=== PATIENT | female | born 1955 | race Caucasian/White ===

== ENCOUNTER 2019-12-26 00:04 | Emergency (ER) | payer MEDICARE, SELFPAY ==
[2019-12-26 00:04] VITALS: BP 172/107; PULSE 91; RESP 16; TEMP 36.6; O2SAT 98; BMI 36.5
--- NOTE | 2019-12-26 00:08 | ED_ITS ---
HPI - Fall General: Chief Complaint: Fall Stated Complaint: Fall, Left Shoulder Pain Time Seen by Provider: 12/26/19 00:05 Source: patient and EMS Mode of arrival: EMS Limitations: no limitations History of Present Illness: HPI Narrative: 64-year-old female states she was getting out of the shower and fell and struck her right arm. She had a right shoulder has had right shoulder pain since then. She states that her arm is stuck in its current position. She has her right arm externally rotated in her hand up in the air. She states she cannot move it. States pain is sharp in nature and rates it a 6 out of 10. She denies hitting her head denies any other injuries. MD complaint: fall Associated symptoms-after fall: Denies abdominal pain, chest pain or headache(s) Review of Systems Const: Denies: fever(s), chills, body aches or change in appetite Eyes: Denies: blurry vision or eye discomfort ENMT: Denies: throat pain or dental pain Card: Denies: chest pain Resp: Denies: dyspnea GI: Denies: abdominal pain, nausea, vomiting or diarrhea : Denies: dysuria Musc: Reports: extremity pain Skin/Breast: Denies: rash Neuro: Denies: headache(s) Psych: Denies: depression Zoran/Lymph: Denies: easy bruising All/Imm: Denies: urticaria Physical Exam Const: COMMON NORMALS: no acute distress, patient oriented x3 and healthy appearing HENMT: COMMON NORMALS: normocephalic and atraumatic HEAD & SCALP: normocephalic and atraumatic Eye: COMMON NORMALS: Equal, round and reactive pupils present and EOMs intact bilaterally PUPIL: Yes Equal, round and reactive pupils present Neck/C-Spine: COMMON NORMALS: full ROM and supple Chest: COMMONS NORMALS: normal inspection of the chest and normal palpation of entire chest wall Resp: COMMON NORMALS: normal respiratory effort, No retractions, No use of accessory muscles and clear to auscultation bilaterally AUSCULTATION: clear to auscultation bilaterally Cardio: COMMON NORMALS: regular rate, regular rhythm and No murmurs present (Cardio) RATE: regular rate RHYTHM: regular rhythm GI: COMMON NORMALS: Normal to inspection, nondistended, normoactive bowel sounds present, Soft to palpation, non-tender and no masses PALPATION: Yes Soft to palpation Extremity: NARRATIVE EXTREMITY EXAM: Tenderness over left shoulder with likely dislocation distal pulses and sensation are intact. Neuro: COMMON NORMALS: patient oriented x3, moves all extremities and no focal motor deficits Psych: COMMON NORMALS: mental status grossly normal, Normal thought process present and cooperative THOUGHT PROCESS: Normal thought process present Skin: COMMON NORMALS: no rashes or lesions noted and no wounds GENERAL SKIN EXAM: no rashes or lesions noted Procedures Orthopedic Joint Reduction Joint #1: Time Out Performed: Yes Side: left Joint Reduction Location: shoulder Analgesia: procedural sedation Shoulder Technique Used (if applicable): traction/counter-traction Post-reduction neuro exam: intact Post-reduction vascular: intact Post Reduction X-Ray Obtained: Yes Post Reduction X-Ray Results: reduced Splint Applied: Yes Patient Tolerated Procedure: well Procedural Sedation Indication: fracture/dislocation reduction ASA Class: II Time of Last PO Intake: 00:00 Preparation: classroom monitor applied, pulse oximeter, supplemental O2 applied, suction/airway equipment at bedside and IV secured IV Propofol dose (mg): 100 Patient Tolerated Procedure: well Complications: none Course Vital Signs: Vital signs: Vital Signs Temperature 97.8 F 12/26/19 00:04 Pulse Rate 66 12/26/19 01:02 Respiratory Rate 18 12/26/19 01:02 Blood Pressure 154/80 12/26/19 01:02 Pulse Oximetry 95 12/26/19 00:40 MDM - Fall MDM Narrative: Medical decision making narrative: Patient presents here with inferior shoulder dislocation. Patient reduction was successful and her neuro and vascular exam after was intact. Patient is currently in a sling. Patient is stable for discharge and is to follow-up with Dr. Iyer. She is to return if worsening. She has no other signs of injury. Imaging Data^: xr l shoulder: Attestation: I personally reviewed and interpreted this imaging study as follows: My impression: inferior shoulder dislocation Discharge Plan Discharge Patient Disposition: Home Clinical Impression: Dislocation of shoulder region Qualifiers: Encounter type: initial encounter Laterality: left Qualified Code(s): S43.005A - Unspecified dislocation of left shoulder joint, initial encounter Condition: Stable Prescriptions: [place] 5-325 mg tablet 1 tab PO Q6H PRN (Reason: pain) Qty: 10 RF: 0 Discharge Orders: Discharge Order (Routine); Ordered 12/26/19 Ordered By: Yoshi Rios Referrals: Hailey Franco MD [Physician] - 1-3 days Gus Booker MD [Primary Care Provider] - Discharge Diet: Advance as tolerated Discharge Activity: Resume usual activity Patient Instructions: Shoulder Dislocation (ED) Coding Level of Care Code ED [employer] Receiver for Chg Fwd Exam Comprehensive
--- NOTE | 2019-12-26 00:08 | XRR_ITS ---
PROCEDURE INFORMATION: Exam: XR Left Shoulder Exam date and time: 12/26/2019 7:43 AM Age: 64 years old Clinical indication: Injury or trauma; Fall; Initial encounter; Dislocation; Severity not specified; Shoulder; Left; Additional info: Injury, fall TECHNIQUE: Imaging protocol: XR Left shoulder. Views: 1 view. COMPARISON: No relevant prior studies available. FINDINGS: Bones/joints: Subcoracoid dislocation of the humeral head in relation to the glenoid. The acromioclavicular joint is without fracture.. Adjacent ribs are normal. Fracture fragment either glenoid or tuberosity. Favor tuberosity. Soft tissues: Normal. XR/XR shoulder LT 1V [id number] IMPRESSION: 1. Subcoracoid dislocation. 2. Fracture fragment either glenoid or tuberosity. Favor tuberosity. Correlate with CT.
[2019-12-26 00:15] VITALS: RESP 16
[2019-12-26] MEDS: HYDROmorphone 1 mg/mL INJ 1 mL 0.5 MG IVP (00:15)
[2019-12-26 00:40] VITALS: BP 172/99; PULSE 80; RESP 20; O2SAT 95
[2019-12-26] MEDS: propofol 10 mg/mL SDV 20 mL 100 MG IVP (01:01)
[2019-12-26 01:02] VITALS: BP 154/80; PULSE 66; RESP 18; O2SAT 98
--- NOTE | 2019-12-26 01:03 | XRR_ITS ---
PROCEDURE INFORMATION: Exam: XR Left Shoulder Exam date and time: 12/26/2019 7:43 AM Age: 64 years old Clinical indication: Injury or trauma; Fall; Initial encounter; Dislocation; Severity not specified; Shoulder; Left; Additional info: Post reduction TECHNIQUE: Imaging protocol: XR Left shoulder. Views: 1 view. COMPARISON: CR XR shoulder LT 1V [id number] 12/26/2019 12:03 AM FINDINGS: Bones/joints: Reduction of the previously visualized dislocation. Moderate degenerative changes of the acromioclavicular joint. Soft tissues: Normal. XR/XR shoulder LT 1V [id number] IMPRESSION: Reduction of the previously visualized dislocation. Previously visualized fracture fragment likely tuberosity.
[2019-12-26 01:34] VITALS: BP 138/88; PULSE 74; RESP 18; O2SAT 98
--- NOTE | 2019-12-26 12:38 | DCPLANNER ---
consumer marketing manager had message to schedule a follow up appointment for patient with ortho. consumer marketing manager called the ortho clinic, spoke with Tish, gave clinic patients information. consumer marketing manager was told that patients information would be printed and reviewed. Clinic will call patient with appointment information.
--- NOTE | 2019-12-28 07:44 | DCPLANNER ---
Patient has a follow up appointment scheduled for Tuesday, January 02, 2020 at 2:30 with ortho. Clinic will call patient with appointment information.
--- NOTE | 2020-01-14 08:36 | DCPLANNER ---
Patient had a follow up appointment scheduled for 01.02.20 with ortho - patient did attend the appointment.
== END 2019-12-26 01:37 | disposition home or self-care (01) ==
PROVIDERS: Emergency Provider Emergency Medicine; PCP Family Medicine
DX: S43.005A Unspecified dislocation of left shoulder joint, initial encounter (principal); W18.2XXA Fall in (into) shower or empty bathtub, initial encounter
CPT/HCPCS: 12345; 23650; 73020; 73030; 96374; 96375; 99282; 99284; J1170; J2704

== ENCOUNTER → 2020-01-02 14:41 | Outpatient (BNVA) | payer MEDICARE, SELFPAY | PROVIDERS: PCP Family Medicine; Referring Provider Emergency Medicine; Visit Provider Specialist | DX: S43.005A Unspecified dislocation of left shoulder joint, initial encounter (principal) | CPT/HCPCS: 73030 ==

== ENCOUNTER 2020-02-07 12:57 | Outpatient (CLI) | payer MEDICARE, SELFPAY ==
--- NOTE | 2020-02-07 13:07 | IR_ITS ---
WS: [id number] LEFT SHOULDER ARTHROGRAM UNDER FLUOROSCOPY. PRIOR TO CT EVALUATION. HISTORY: fracture COMPARISON: 01/02/2020. FLUOROSCOPY TIME: 1.2 minutes. Procedure, risks and complications were explained to the patient. Consent has been obtained. Under fluoroscopic guidance the skin is marked over the medial superior third of the humeral head, cl eansed with ChloraPrep and anesthetized with lidocaine. 22-gauge spinal needle is inserted to the cor rober of the humeral head. Approximately 12 cc of Omnipaque 300 are injected. Patient tolerated the dominga nt distention well. No complications. Poorly visualized avulsion fracture over the superior humeral head. CT evaluation to follow. IR/IR arthrogram shoulderLT [id number] IMPRESSION: Uncomplicated LEFT shoulder joint injection prior to CT.
[2020-02-07] MEDS: iohexol 300 mg/mL 50 mL Btl INTRA-ARTI (13:59)
--- NOTE | 2020-02-07 14:15 | CT_ITS ---
WS: [id number] CT ARTHROGRAM LEFT shoulder. LEFT shoulder arthrogram was performed in fluoroscopy prior to CT evaluation. HISTORY: fracture COMPARISON: 01/02/2020 radiographs. Procedure, risks and complications were explained to the patient. Complications include but not limit ed to bleeding, infection and contrast reaction. Current medications are reviewed. Skin is cleansed with ChloraPrep. Skin is anesthetized with 1% buffered lidocaine. 22-gauge needle is inserted into the LEFT shoulder joint. Approximately 12 cc of Omnipaque 300 injected without complic ation. Patient will proceed to CT evaluation immediately. No complications were encountered. Patient is instructed to watch for post procedure infection or ble eding. Patient is also instructed to contact the radiology department with any concerns. Good contrast distention of the shoulder joint. Osseous fragments are noted over the superior humeral head in close association with the supraspinatus tendon. There are several osseous fragments with th e largest measuring 2.4 x 0.5 cm. There are smaller more spiculated fragments more medially over the humeral head. The donor site is from the posterior lateral humeral head. There is a squared off surfa ce of the posterior lateral humerus. These bony fragments have progressed into the acromiohumeral dominga nt space. There is very little joint space between the acromion and humeral head for the rotator cuff to move. No additional fractures are identified. No contrast extends into the subacromial or subdelt oid bursa. Biceps tendon remains in normal position. CT/CT shoulder LT w con [id number] IMPRESSION: Uncomplicated LEFT shoulder joint injection prior to CT arthrogram. Avulsion fractures from the posterior lateral humeral head have migrated superi mendy and are now positioned within the acromial humeral joint space with encroa chment upon the supraspinatus tendon. There are several fragments with the larg est fragment measuring 2.4 x 0.5 cm. Fragments are causing significant narrowin g of the space for the supraspinatus tendon.
== END 2020-02-07 12:58 | disposition home or self-care (01) ==
LOC: RADWPI 13:00
PROVIDERS: Family Provider Family Medicine; PCP Family Medicine; Visit Provider Specialist
DX: S42.292A Other displaced fracture of upper end of left humerus, initial encounter for closed fracture (principal); X58.XXXA Exposure to other specified factors, initial encounter
CPT/HCPCS: 23350; 73201; 77002; Q9967

== ENCOUNTER → 2020-02-28 15:23 | Outpatient (BNVA) | payer MEDICARE, SELFPAY | PROVIDERS: Family Provider Family Medicine; PCP Family Medicine; Visit Provider Specialist | DX: Z11.59 Encounter for screening for other viral diseases (principal); S42.292A Other displaced fracture of upper end of left humerus, initial encounter for closed fracture; S43.03 Inferior subluxation and dislocation of humerus | CPT/HCPCS: 87635 ==

== ENCOUNTER 2020-03-04 05:32 | Day surgery (SDC) | payer MEDICARE, SELFPAY ==
[2020-03-03 10:35] VITALS: BMI 36.0
[2020-03-04] VITALS (8 sets, daily range): BP systolic 116–159; BP diastolic 57–96; PULSE 65–88; RESP 16–18; TEMP 36.1–37; O2SAT 94–100
--- NOTE | 2020-03-04 | SCC_ITS ---
Procedure Done: Left shoulder open acromioplasty with removal of multiple bony fragments and repair of massive rotator cuff tear with suture anchors x2 in addition to primary repair, and manipulation left shoulder 18.7 seconds of fluoroscopic guidance, for a cumulative dose of 2.05 mGy, was provided to Dr. Franco by the radiology department. C-arm images of the LEFT shoulder were saved for the patient's permanent record. TC
--- NOTE | 2020-03-04 | XR_ITS ---
WS: [id number] Exam: XR shoulder LT 1V [id number] Date/Time of Exam: 03/04/2020 7:00 AM Reason For Exam: Shoulder arthrotomy and removal of loose bodies. Single AP C-arm image of the left shoulder submitted for evaluation. Previously noted fracture of the greater tuberosity is difficult to identify on the C-arm image. No o ther obvious fractures. Normal soft tissues.
[2020-03-04] MEDS: sodium chloride 0.9% 1,000 ML 30 ML IV (06:00)
[2020-03-04] MEDS: CELEcoxib 200 mg Capsule 400 MG PO (06:04)
[2020-03-04] MEDS: vancomycin 1,000 MG in sodium chloride 0.9% 250 ML 250 MG IV (06:09)
[2020-03-04 06:12] LABS: Basophils % 0.3 %; Eosinophils # 0.2 10^3/uL (0.0-0.8); Eosinophils % 2.4 %; Hematocrit 42.8 % (37.0-47.0); Hemoglobin 13.9 g/dL (11.5-15.3); Lymphocytes # 3.4 10^3/uL (0.8-4.8); Lymphocytes % 34.5 %; Mean Corpuscular HGB Conc 32.5 g/dL (30.0-36.0); Mean Corpuscular Hemoglobin 30.5 pg (28.0-34.0); Mean Corpuscular Volume 93.9 fL (81-99); Mean Platelet Volume 9.6 fL (7.4-10.4); Monocytes # 0.7 10^3/uL (0.2-0.9); Neutrophils # 5.54 10^3/uL (1.8-7.7); Neutrophils % 55.6 %; Nucleated Red Blood Cells % 0 %; Platelet Count 271 10^3/cmm (130-400); Red Blood Count 4.56 10^6/uL (4.1-5.3); Red Cell Distribution Width 12.7 % (12.1-15.1)
[2020-03-04 06:22] LABS: Add Urine Microscopic? YES; Bilirubin Urine 1+ (Negative); Blood Urine Neg (Negative); Glucose Urine UA Norm (Normal); Ketones Urine Negative (Negative); Leukocyte Esterase Urine Negative (Negative); Nitrate Urine Negative (Negative); Protein Urine Trace (Negative); Urine Appearance SL Hazy (CLEAR); Urine Color Yellow (Yellow); Urobilinogen Urine Norm (Negative); pH Urine 5 (5-7)
[2020-03-04 06:23] LABS: RBC Urine 0-4 /hpf (0-2); Squamous Epithelial Cell Urine 0-4 /hpf (0-5); WBC Urine 0-4 /hpf (0-5)
[2020-03-04 06:24] LABS: Add Urine Culture? No; Bacteria Urine TRACE /hpf
[2020-03-04] MEDS: midazolam 1 mg/mL INJ 5 ML 5 MG IVP (06:27)
[2020-03-04 06:28] LABS: Alanine Aminotransferase 25 U/L (0-33); Albumin Level 4.3 g/dL (3.5-5.2); Alkaline Phosphatase 109 IU/L (35-105); Aspartate Amino Transferase 20 U/L (0-32); Blood Urea Nitrogen 15 mg/dL (8-23); Calcium 9.5 mg/dL (8.5-10.5); Carbon Dioxide 23 mmol/L (22-29); Chloride 102 mmol/L (98-107); Creatinine Clr Calc Pharmacy 70.6028; Globulin 2.6 g/dL (1.3-4.6); Glomerular Filtration Rate 55.8 mL/min (90-130); Glucose 139 mg/dL (65-115); Osmolality Calculated 289 mOsm/kg (285-295); Sodium 138 mmol/L (136-145); Total Bilirubin 0.2 mg/dL (0.15-1.2); Total Protein 6.9 g/dL (6.6-8.7)
[2020-03-04 06:33] LABS: Anion Gap 16.7 (5-19); Potassium 3.7 mmol/L (3.5-5.1)
--- NOTE | 2020-03-04 06:34 | P.ANESASSM_ITS ---
Pre-Anesthetic Assessment Pre-Anesthetic Assessment: Height/Weight: Height 1.7 m Weight 104.326 kg Temp Pulse Resp BP Pulse Ox 97.0 F L 65 18 159/71 95 03/04/20 05:54 03/04/20 05:54 03/04/20 05:54 03/04/20 05:54 03/04/20 05:54 Preop Diagnosis: Loose bodies left shoulder with rotator cuff tear Proposed Procedure: Operation Date: 03/04/20 06:30 Proposed Procedures p Left Shoulder Arthrotomy with removal of multiple loose bodies [id number] S43.035D S42.292A M75.100(Left) - Hailey Franco MD s Possible Rotator Cuff Repair(Not Applicable) - Hailey Franco MD Familial anesthetic complications: none Was Beta Masha taken within 24 hours: Yes Last intake: Intake Last Liquid Date 03/03/20 Last Liquid Time 23:59 Last Solid Date 03/03/20 Last Solid Time 21:30 Social: Social History: No alcohol and No tobacco Exam: Pre-Anes Outpt Exam: alert, oriented x 3, clear to auscultation bilaterally and regular rate & rhythm Airway: Cervical ROM: WNL MP: 3 Dentition: Full Pulmonary: Pulmonary: Asthma and Sleep apnea (does not wear cpap) Comments: can't lay flat without allergy-related sinus drainage and she says it feels hard to breath - asks for pillow in recovery so her head isn't flat CV/HEM: CV/HEM: HTN GI: GI: GERD Metabolic: Metabolic: Morbid obesity and Thyroid Anesthetic Plan: ASA status: 2 Anesthesia: General and Regional (specify below) Risk of > 500 ml blood loss (7ml/kg in children): No Meds/Allergies Current Medications: Current Medications Generic Name Dose Route Start Last Admin Trade Name Freq PRN Reason Stop Dose Admin Vancomycin HCl 1,0 00 mg/ 250 mls @ 250 mls /hr 03/04/20 05:38 03/04/20 06:09 Sodium Chloride IV 03/04/20 06:37 250 mls/hr ONCE ONE Administration Protocol Sodium Chloride 1,000 mls @ 30 ml s/hr 03/04/20 05:45 03/04/20 06:00 Sodium Chloride 0.9% IV 03/05/20 05:44 30 mls/hr .Q24H HEMANTH Administration Data Anesthesia CBC & Chem 7: 03/04/20 05:50 03/04/20 05:50 Other Labs: Laboratory Results - last 48 hr 03/04/20 03/04/20 03/04/20 05:46 05:50 05:50 WBC 10.0 RBC 4.56 Hgb 13.9 Hct 42.8 MCV 93.9 MCH 30.5 MCHC 32.5 RDW 12.7 Plt Count 271 MPV 9.6 Neut % (Auto) 55.6 Lymph % (Auto) 34.5 [place] % (Auto) 7.0 Eos % (Auto) 2.4 Baso % (Auto) 0.3 Neut # (Auto) 5.54 Lymph # (Auto) 3.4 [place] # (Auto) 0.7 Eos # (Auto) 0.2 Baso # (Auto) 0.0 Nucleated RBC % (auto) 0 Nucleated RBCs # 0.0 Sodium 138 Potassium 3.7 Chloride 102 Carbon Dioxide 23 Anion Gap 16.7 BUN 15 Creatinine 1.0 H GFR Calculation 55.8 L Glucose 139 H Calculated Osmolality 289 Calcium 9.5 Total Bilirubin 0.2 AST 20 ALT 25 Alkaline Phosphatase 109 H Total Protein 6.9 Albumin 4.3 Globulin 2.6 Urine Color Yellow Urine Appearance Sl hazy Urine pH 5 Ur Specific [place] 1.030 Urine Protein Trace Urine Glucose (UA) Norm Urine Ketones Negative Urine Blood Neg Urine Nitrate Negative Urine Bilirubin 1+ H Urine Urobilinogen Norm Ur Leukocyte Esterase Negative Urine RBC 0-4 H Urine WBC 0-4 H Ur Squamous Epith Cells 0-4 H Amorphous Sediment Not Reportable Urine Bacteria Trace Cardiac Studies: No Data to Display
--- NOTE | 2020-03-04 06:35 | ANES.PROC ---
Anesthesia Procedures Procedure/Date: 03/04/20 Nerve Block ^: Nerve Block 1: Main Anesthesia: general anesthesia Time Out Performed: Yes Consent: requested by attending/covering physician, from patient, from other, risks and benefits reviewed, patient agrees to proceed and emergency procedure Nerve block location: interscalene (L) Anesthesia monitors applied: pulse oximetry, EKG, BP cuff and oxygen Nerve block position: semi sitting Anesthetic Used: ropivicaine 0.5% and with decadron (4 mg) Amount of anesthesia used (mL): 30 Ultrasound used to: recognize landmarks and visualize and ID brachial plexus Nerve Stimulator Used?: No Interscalene/Femoral BLK: 2 stimuplex 22 g needle used for position and inplane approach, other needle, visualize local anesthetic spread and no vascular puncture identified Patient Tolerated Procedure: well Complications: none
--- NOTE | 2020-03-04 06:53 | P.HPUD_ITS ---
Surgery/Procedure H&P Update DATE OF PROCEDURE: March 04, 2020 DATE H&P PERFORMED: 02/25/20 H&P UPDATE INFORMATION: I have reviewed H&P completed within last 30 days, I have examined patient prior to procedure, No changes to prior documentation and H&P is in [facility] EMR on date indicated PREOP DIAGNOSIS: Loose bodies left shoulder with rotator cuff tear PLANNED PROCEDURE: Operation Date: 03/04/20 06:30 Proposed Procedures p Left Shoulder Arthrotomy with removal of multiple loose bodies [id number] S43.035D S42.292A M75.100(Left) - Hailey Franco MD s Possible Rotator Cuff Repair(Not Applicable) - Hailey Franco MD Related Problem List Diagnoses (1) Rotator cuff tear: Qualifiers: Rotator cuff tear extent: complete Rotator cuff tear trauma status: traumatic Encounter type: initial encounter Laterality: left Qualified Code(s): S46.012A - Strain of muscle(s) and tendon(s) of the rotator cuff of left shoulder, initial encounter (2) Inferior dislocation of left shoulder: Qualifiers: Encounter type: subsequent encounter Qualified Code(s): S43.035D - Inferior dislocation of left humerus, subsequent encounter (3) Humeral head fracture: Qualifiers: Encounter type: initial encounter Fracture type: closed Laterality: left Qualified Code(s): S42.292A - Other displaced fracture of upper end of left humerus, initial encounter for closed fracture
[2020-03-04] MEDS: vancomycin 1,000 MG SDV 1000 MG IRRIGATION (07:53)
--- NOTE | 2020-03-04 09:48 | SUR.PHASEI ---
PT AWAKE ALERT TALKATIVE PT HAS LOTS OF ORAL SECRETIONS, PT SPITS REPEATEDLY PT GIVEN TISSUES AND BASIN, PLACED ON NC 2L FOR PT CONVENIENCE. LT SHOULDER DRESSING D/I ARM IN ULTRA SLING.
--- NOTE | 2020-03-04 10:06 | P.OP_ITS ---
Operative Report Date of procedure: March 04, 2020 Pre-op Diagnosis: Loose bodies left shoulder with rotator cuff tear Secondary to humeral head fracture with inferior dislocation Post-op diagnosis: same Post-op Findings: Large rotator cuff tear with attached humeral head fracture fragments Procedure Done: Left shoulder open acromioplasty with removal of multiple bony fragments and repair of massive rotator cuff tear with suture anchors x2 in addition to primary repair, and manipulation left shoulder Implants: Yasemin suture anchors x2 Specimens removed/disposition: Bone, disposed of Pathology: none sent Surgeon: Hailey Franco Friction Paint Machine Tender: [facility] OR technicians Anesthesia: General (Intubated, ASA 2) Estimated blood loss (mL): 100 IV fluids (mL): 1,500 Urine output (mL): 0 Urine output: No [place] Complications: None Findings: Large wafer thin bony fragments connected to soft tissue with massive rotator cuff tear and frozen shoulder. Impingement secondary to the acromion. Condition: stable Disposition: PACU (Then home with family) Brief History: This 65-year-old woman presented following a fracture dislocation of the left shoulder. She had humeral head involvement as well as surgical neck. Upon presentation recently in the office, she was quite painful and had very restricted range of motion. Imaging demonstrated fragments of bone which resided between the acromion and the humeral head. The decision was made to proceed with acromioplasty, rotator cuff repair, removal of multiple loose bodies, and manipulation. Complications were discussed with the patient. She understood and wished to proceed. Procedure: The patient was brought to the operating theater and underwent general intubated anesthesia, ASA 2. The patient was placed in a beachchair position and subsequently the left upper extremity was prepped and draped in the usual fashion utilizing DuraPrep. The arm was draped free. A surgical pause was performed prior to commencement of the surgical procedure. At the time of the surgical pause, we confirmed the site and side of surgery as well as administration of appropriate preoperative antibiotics vancomycin 1 g. MRI was also reviewed at that time. Following the surgical pause, a manipulation was accomplished of the shoulder. Following the manipulation, an incision was made at approximately the level of the mid acromion extending across the anterolateral corner of the acromion and distally as necessary. Care was taken to avoid injury to the axillary nerve by limiting the distal extent of the incision. Dissection continued through skin and soft tissues using a scalpel. Hemostasis was obtained using electrocautery. Soft tissues were elevated off the acromion. An acromioplasty was then accomplished using a combination of a saw and a power rasp. With this, we were able to remove compression caused by the acromion. The rotator cuff tear was evaluated. Palpation of the bursal tissues demonstrated the fracture was palpable through the soft tissues. A longitudinal split was made through the bursal tissues and the rotator cuff was noted to be quite incompetent and thinned. There was essentially minimal to no structure to the cuff in the area of the fracture. Palpation under the cuff demonstrated that there were multiple fragments of bone. A rongeur was used to remove these fragments. The rotator cuff such as it was was freshened. There was noted to be significant thinning of the cuff. The area of the fracture of the humeral head was evaluated. This appeared to be healed. There was a defect in the greater tuberosity area likely a donor site for the fracture fragments which migrated superiorly. This area was evaluated. The rotator cuff was evaluated. Once the fragments which could be removed were removed, attempt was made to repair the rotator cuff. We began with a primary care with 0 Ethibond in the vertical portion of the tear. We then used 2 suture anchors to bring the rotator cuff back to the area of the greater tuberosity. Posteriorly, the humeral head was still uncovered, but superiorly and anteriorly it appeared covered. The shoulder was placed through range of motion, and there was evidence of coverage as noted. The rotator cuff appeared intact and the repair stable in the area which we were able to repair. The wound was irrigated and closure was accomplished with 0 Vicryl in the capsular tissues overlying the acromioclavicular joint area as well as over the acromion and down into the deltoid muscle. 2-0 Monocryl was used to close the subcutaneous tissues followed by 4-0 Monocryl subcuticular closure. This was followed by Exofin, Steri-Strips, Telfa, and Tegaderm. The patient was placed in a slingshot style sling and was returned to the recovery room in satisfactory condition. The patient will be discharged to home to follow-up with me in the office as scheduled. There were no complications and no specimens. Associated Problem List Diagnoses (1) Rotator cuff tear: Qualifiers: Rotator cuff tear extent: complete Rotator cuff tear trauma status: traumatic Encounter type: initial encounter Laterality: left Qualified Code(s): S46.012A - Strain of muscle(s) and tendon(s) of the rotator cuff of left shoulder, initial encounter (2) Inferior dislocation of left shoulder: Qualifiers: Encounter type: subsequent encounter Qualified Code(s): S43.035D - Inferior dislocation of left humerus, subsequent encounter (3) Humeral head fracture: Qualifiers: Encounter type: initial encounter Fracture type: closed Laterality: left Qualified Code(s): S42.292A - Other displaced fracture of upper end of left humerus, initial encounter for closed fracture
--- NOTE | 2020-03-04 10:12 | SUR.PHASEI ---
PT ALERT ASKING FOR SOMETHING TO DRINK LT ARM IN SLING, DISTAL FINGERS PINK WARM CAP REFILL LESS THAN 3 SECONDS. FIRST ICE TO SHOULDER DRESSING D/I PT TO OPS HANDOFF AT BEDSIDE TO DONATO MILLER.
--- NOTE | 2020-03-04 14:31 | ANE.PACU2 ---
Inpatient post-anesthesia follow up: Airway intact: Yes Vital signs: Temperature 97.4 F Pulse Rate 88 Respiratory Rate 18 Blood Pressure 146/77 Pulse Oximetry 94 Oxygen Delivery Me thod Room Air Oxygen Flow Rate 2 Fraction of Inspir ed Oxygen Hydration adequate: Yes Nausea and vomiting: No Pain level: 1 Mental status: Baseline
== END 2020-03-04 11:06 | disposition home or self-care (01) ==
PROVIDERS: PCP Family Medicine; Visit Provider Specialist
PROC: (CPT 29805; principal; 2020-03-04 06:30)
PROC: (CPT 23040; 2020-03-04 06:30)
PROC: (CPT 23040; 2020-03-04 06:30)
DX: M24.012 Loose body in left shoulder (principal); S46.012A Strain of muscle(s) and tendon(s) of the rotator cuff of left shoulder, initial encounter; S42.292A Other displaced fracture of upper end of left humerus, initial encounter for closed fracture; S43.035A Inferior dislocation of left humerus, initial encounter; X58.XXXA Exposure to other specified factors, initial encounter; J45.909 Unspecified asthma, uncomplicated; I10 Essential (primary) hypertension; K21.9 Gastro-esophageal reflux disease without esophagitis; E66.01 Morbid (severe) obesity due to excess calories; Z68.36 Body mass index [BMI] 36.0-36.9, adult
CPT/HCPCS: 23040; 23420; 12345; 36415; 64415; 73020; 76000; 76942; 80053; 81001; 85025; 96365; 96374; C1713; J0131; J1100; J2250; J2370; J2405; J2704; J2710; J2795; J3010; J3370; J3490; J7030; J7050

== ENCOUNTER → 2020-03-26 11:51 | Outpatient (BNVA) | payer MEDICARE, SELFPAY | PROVIDERS: PCP Family Medicine; Visit Provider Specialist | DX: Z47.89 Encounter for other orthopedic aftercare (principal) | CPT/HCPCS: 73030 ==

== ENCOUNTER 2020-05-16 06:00 | Outpatient (RCR) | payer MEDICARE, SELFPAY | END 2020-05-18 23:59 | disposition home or self-care (01) | LOC: SPT 06:00 | PROVIDERS: PCP Family Medicine; Referring Provider Specialist; Visit Provider Specialist | DX: Z48.89 Encounter for other specified surgical aftercare (principal) | CPT/HCPCS: 97161 ==

== ENCOUNTER 2020-05-19 06:00 | Outpatient (RCR) | payer MEDICARE, SELFPAY | END 2020-06-15 23:59 | disposition home or self-care (01) | LOC: SPT 06:00 | PROVIDERS: PCP Family Medicine; Referring Provider Specialist; Visit Provider Specialist | DX: Z48.89 Encounter for other specified surgical aftercare (principal) | CPT/HCPCS: 97110; 97140 ==

== ENCOUNTER 2020-06-16 06:00 | Outpatient (RCR) | payer MEDICARE, SELFPAY | END 2020-07-16 23:59 | disposition home or self-care (01) | LOC: SPT 06:00 | PROVIDERS: PCP Family Medicine; Referring Provider Specialist; Visit Provider Specialist | DX: M75.02 Adhesive capsulitis of left shoulder (principal) | CPT/HCPCS: 97110; 97140 ==

== ENCOUNTER 2020-06-30 12:52 | Outpatient (CLI) | payer MEDICARE, SELFPAY ==
--- NOTE | 2020-06-30 14:00 | IR_ITS ---
WS: [id number] Left shoulder arthrogram, 06/30/2020 Clinical Data: S46.012A - Strain of muscle(s) and tendon(s) of the rotator cuff of left shoulder, ini tial encounter Comparison: None. Fluoroscopy time: 3.8 minutes. Findings: With the usual technique, a 22-gauge small spinal needle was inserted into the left shoulder joint. A fter localizing the needle tip with 1 mL of Omnipaque at a concentration of 240 mg/mL, an injection o f 7 mL of Omnipaque was done. The shoulder joint shows an irregular outline consistent with scarring. There was great difficulty in injecting the contrast material because of this scarring. No evidence of a rotator cuff tear could b e seen. IR/IR arthrogram shoulderLT [id number] Impression: 1. Satisfactory injection of Omnipaque for a CT arthrogram of the left shoulder . 2. The shoulder capsule is extremely irregular probably from scarring.
--- NOTE | 2020-06-30 14:00 | CT_ITS ---
WS: [id number] CT scan of the left shoulder. Additional two-dimensional coronal and sagittal reconstruction was perf ormed. 06/30/2020 Clinical Data: S46.012A - Strain of muscle(s) and tendon(s) of the rotator cuff of left shoulder, ini tial encounter Comparison: CT left shoulder, 02/07/2020 DLP: 926.[address] scans at [facility] use at least one of these dose optimization techniques: automat ed exposure control; mA and/or kV adjustment per patient size (includes targeted exams where dose is matched to clinical indication); or iterative reconstruction. Findings: The contrast material was diminished in volume compared to prior study because of difficulty of injec tion. The shoulder joint demonstrates scarring of the joint space. Irregularity of the greater tubero sity is unchanged from before. Bony fragments which were present superior to the humeral head are no longer present. There are fragments that are anterior and posterior to the humeral head. No rotator c uff tear is seen. CT/CT shoulder LT w con [id number] Impression: 1. Narrow joint space probably secondary to synovial scarring. 2. Fragments noted anteriorly and posteriorly to the humeral head. 3. Superior fragments are longer present and there is narrowing of the space be tween the humeral head and acromion. 4. Negative for rotator cuff tear.
[2020-06-30] MEDS: iohexol 300 mg/mL 50 mL Btl INTRA-ARTI (14:09)
== END 2020-06-30 12:53 | disposition home or self-care (01) ==
LOC: RADWPI 12:58
PROVIDERS: PCP Family Medicine; Visit Provider Specialist
DX: S46.012A Strain of muscle(s) and tendon(s) of the rotator cuff of left shoulder, initial encounter (principal); X58.XXXA Exposure to other specified factors, initial encounter
CPT/HCPCS: 23350; 73040; 73201; 77002; Q9967

== ENCOUNTER → 2020-07-10 09:36 | Outpatient (BNVA) | payer MEDICARE, SELFPAY | PROVIDERS: PCP Family Medicine; Visit Provider Specialist | DX: M25.511 Pain in right shoulder | CPT/HCPCS: 73030 ==

== ENCOUNTER 2020-07-17 06:00 | Outpatient (RCR) | payer MEDICARE, SELFPAY | END 2020-08-15 23:59 | disposition home or self-care (01) | LOC: SPT 06:00 | PROVIDERS: PCP Family Medicine; Referring Provider Specialist; Visit Provider Specialist | DX: M75.02 Adhesive capsulitis of left shoulder (principal) | CPT/HCPCS: 97110; 97140 ==

== ENCOUNTER 2020-08-16 06:00 | Outpatient (RCR) | payer MEDICARE, SELFPAY | END 2020-09-15 23:59 | disposition home or self-care (01) | LOC: SPT 06:00 | PROVIDERS: PCP Family Medicine; Referring Provider Specialist; Visit Provider Specialist | DX: M75.02 Adhesive capsulitis of left shoulder (principal) | CPT/HCPCS: 97110; 97140 ==

== ENCOUNTER 2020-09-16 06:00 | Outpatient (RCR) | payer MEDICARE, SELFPAY | END 2020-10-15 23:59 | disposition home or self-care (01) | LOC: SPT 06:00 | PROVIDERS: PCP Family Medicine; Referring Provider Specialist; Visit Provider Specialist | DX: M75.02 Adhesive capsulitis of left shoulder (principal) | CPT/HCPCS: 97110; 97140 ==

== ENCOUNTER 2020-11-21 13:54 | Outpatient (CLI) | payer MEDICARE, SELFPAY ==
--- NOTE | 2020-11-21 14:04 | US_ITS ---
WS: [id number] ULTRASOUND SOFT TISSUES RIGHT neck HISTORY: NECK MASS COMPARISON: None available. TECHNIQUE: 2-D and color Doppler imaging is submitted. Ultrasound directed along the posterior RIGHT neck in the area of interest. There is a very small lym ph node present. No suspicious soft tissue masses or fluid collections. US/US soft tissue head neck [id number] IMPRESSION: Small benign lymph node along the posterior RIGHT neck. Otherwise negative.
== END 2020-11-21 13:55 | disposition home or self-care (01) ==
PROVIDERS: PCP Family Medicine; Visit Provider Family Medicine
DX: R22.1 Localized swelling, mass and lump, neck (principal)
CPT/HCPCS: 76536

== ENCOUNTER → 2021-01-26 10:15 | Outpatient (BNVA) | payer MEDICARE, SELFPAY | PROVIDERS: PCP Family Medicine; Referring Provider Family Medicine; Visit Provider Specialist | DX: M19.011 Primary osteoarthritis, right shoulder (principal) | CPT/HCPCS: 73030 ==

== ENCOUNTER → 2021-01-27 09:08 | Outpatient (BNVA) | payer MEDICARE, SELFPAY | PROVIDERS: PCP Family Medicine; Referring Provider Specialist; Visit Provider Specialist | DX: G62.89 Other specified polyneuropathies (principal); M54.2 Cervicalgia; M25.511 Pain in right shoulder | CPT/HCPCS: 95910 ==

== ENCOUNTER 2021-04-07 12:41 | Outpatient (CLI) | payer MEDICARE, SELFPAY ==
--- NOTE | 2021-04-07 12:46 | XR_ITS ---
WS: [id number] Exam: XR ribs BI 3V* [id number] Date/Time of Exam: 04/07/2021 12:46 PM Reason For Exam: RIB PAIN No acute rib fracture noted. Both lungs are clear and fully inflated. No pleural or pulmonary reactiv e changes are seen. XR/XR ribs BI 3V* [id number] IMPRESSION: 1. Negative bilateral ribs. No pneumothorax or other significant finding.
== END 2021-04-07 12:42 | disposition home or self-care (01) ==
LOC: RAD 12:44
PROVIDERS: PCP Family Medicine; Visit Provider Family Medicine
DX: R07.81 Pleurodynia (principal)
CPT/HCPCS: 71110

== ENCOUNTER 2021-04-08 11:33 | Outpatient (CLI) | payer MEDICARE, SELFPAY ==
--- NOTE | 2021-04-08 11:00 | US_ITS ---
WS: [id number] RIGHT UPPER QUADRANT ULTRASOUND HISTORY: R10.31 - Right lower quadrant pain COMPARISON: None available. Liver: 14.6 cm in length. Mild liver heterogeneity and increased attenuation. The entire liver is not well visualized. No bile duct dilatation or mass. Portal Vein: Normal hepatopetal flow with monophasic waveform. Gallbladder: Prior cholecystectomy. CBD: 1.4 cm Pancreas: Obscured. Right kidney: 11.2 cm in length. Normal size and echogenicity. No hydronephrosis or mass. Aorta and IVC: Unremarkable abdominal aorta and IVC. No ascites. No abnormality in the RIGHT lower quadrant. US/US abdomen limited [id number] IMPRESSION: 1. Prior cholecystectomy. 2. Limited evaluation due to body habitus. 3. Mild hepatic steatosis. 4. Moderately dilated common bile duct. Recommend further evaluation to evalua te for etiology. Recommend follow-up CT abdomen and pelvis with IV contrast.
== END 2021-04-08 11:34 | disposition home or self-care (01) ==
PROVIDERS: PCP Family Medicine; Visit Provider Surgery
DX: R10.31 Right lower quadrant pain (principal); Z90.49 Acquired absence of other specified parts of digestive tract; K76.0 Fatty (change of) liver, not elsewhere classified
CPT/HCPCS: 76705

== ENCOUNTER 2021-04-21 06:00 | Outpatient (RCR) | payer MEDICARE, SELFPAY | END 2021-05-18 23:59 | disposition home or self-care (01) | LOC: SPT 06:00 | PROVIDERS: PCP Family Medicine; Referring Provider Internal Medicine Cardiovascular Disease; Visit Provider Internal Medicine Cardiovascular Disease | DX: M54.2 Cervicalgia (principal); Z98.1 Arthrodesis status; R29.898 Other symptoms and signs involving the musculoskeletal system | CPT/HCPCS: 97110; 97161 ==

== ENCOUNTER 2021-04-30 13:22 | Outpatient (CLI) | payer MEDICARE, SELFPAY ==
--- NOTE | 2021-04-30 13:26 | CT_ITS ---
WS: [id number] CT ABDOMEN AND PELVIS WITH CONTRAST HISTORY: RUQ abdominal PAIN/GROIN PAIN TECHNIQUE: Imaging performed of the abdomen and pelvis with IV contrast. Patient refused oral contras t. Single phase imaging of the abdomen. Coronal and sagittal reformats are submitted. All CT scans a [facility] use at least one of these dose optimization techniques: automated exposure contro l; mA and/or kV adjustment per patient size (includes targeted exams where dose is matched to clinica l indication); or iterative reconstruction. IV CONTRAST: Visipaque 320; 95 mL IV. Oral contrast: None. Patient refused. DLP: 1928.3 mGy.cm COMPARISON: 04/08/2021 Lower thorax: Lung bases are clear. Heart is normal size. Small hiatal hernia. Liver/biliary system: Normal size liver. There is mild diffuse low attenuation from hepatic steatosis . Portal vein is normal. No mass. Gallbladder: Status post cholecystectomy. Common bile duct is 9 mm. At the pancreatic head common dashawn e duct is a normal caliber. Pancreas: Normal size pancreas and pancreatic duct. No adjacent inflammation. Spleen: Normal size spleen. No mass or infarct. Adrenal glands: Normal. Right kidney: Normal. Left kidney: Normal. Aorta: Normal. Lymphadenopathy: None. Free fluid: None. GI tract: Prior appendectomy. Numerous diverticula in the descending and sigmoid colon. No acute infl ammation or abscess. No free air. Abdominal wall: Unremarkable abdominal wall. No hernia. Pelvis: Prior hysterectomy. No free fluid or adenopathy. Fat-containing inguinal canals. Bones: Unremarkable. No adenopathy. CT/CT abdomen pelvis w con* [id number] IMPRESSION: 1. Prior cholecystectomy, appendectomy and hysterectomy. 2. Common bile duct measures 9 mm. Normal for postcholecystectomy. 3. Mild hepatic steatosis. 4. Moderate colonic diverticulosis, most significant burden in the sigmoid col on without acute diverticulitis.
[2021-04-30] MEDS: iodixanol 320 mg/mL 100mL Btl IV (13:44)
== END 2021-04-30 13:23 | disposition home or self-care (01) ==
LOC: RAD 13:24
PROVIDERS: PCP Family Medicine; Visit Provider Surgery
DX: Z90.49 Acquired absence of other specified parts of digestive tract (principal); Q42.8 Congenital absence, atresia and stenosis of other parts of large intestine; Z90.710 Acquired absence of both cervix and uterus; K76.0 Fatty (change of) liver, not elsewhere classified; K57.30 Diverticulosis of large intestine without perforation or abscess without bleeding
CPT/HCPCS: 74177

== ENCOUNTER → 2021-07-14 09:41 | Outpatient (BNVA) | payer MEDICARE, SELFPAY | PROVIDERS: PCP Family Medicine; Visit Provider Surgery | DX: Z20.822 Contact with and (suspected) exposure to COVID-19 (principal); R22.2 Localized swelling, mass and lump, trunk | CPT/HCPCS: 87635 ==

== ENCOUNTER 2021-07-16 06:38 | Day surgery (SDC) | payer MEDICARE, SELFPAY ==
[2021-07-15 12:09] VITALS: BMI 34.1
[2021-07-16] VITALS (7 sets, daily range): BP systolic 87–151; BP diastolic 55–78; PULSE 63–72; RESP 16–18; TEMP 36.2–36.8; O2SAT 94–98
[2021-07-16] MEDS: vancomycin 1,500 MG/300 ML PIGGYBACK 200 MG IV (07:32)
[2021-07-16] MEDS: sodium chloride 0.9% 1,000 ML 30 ML IV (07:32)
--- NOTE | 2021-07-16 08:10 | W.PM.OPSFHP ---
Same Day Surgery H&P Indication for Procedure/HPI DATE OF PROCEDURE: July 16, 2021 CHIEF COMPLAINT/INDICATIONFOR SURGICAL PROCEDURE: excision abdominal wall mass PREOP DIAGNOSIS: abdominal wall mass PLANNED PROCEDURE: Operation Date: 07/16/21 08:00 Proposed Procedures p Excision abd wall mass 647232/r22.22(Not Applicable) - Viet Dominguez MD Medications/Allergies* Home Medications Medication Instructions Recorded Confirmed Type aspirin 81 mg tablet,delayed 81 mg PO DAILY 01/02/20 07/16/21 History release bupropion HCl 300 mg 24 hr tablet, 300 mg PO QAM 01/02/20 07/16/21 History extended release (Wellbutrin XL) celecoxib 200 mg capsule (Celebrex) 200 mg PO DAILY 01/02/20 07/16/21 History cholecalciferol (vitamin D3) 125 125 mcg PO DAILY 01/02/20 07/16/21 History mcg (5,000 unit) capsule citalopram 40 mg tablet (Celexa) 40 mg PO DAILY tab 01/02/20 07/16/21 History mecobalamin (vitamin B12) 1,000 1,000 mcg PO DAILY 01/02/20 07/16/21 History mcg chewable tablet (B12 Active) quetiapine 100 mg tablet (Seroquel) 100 mg PO DAILY 01/02/20 07/16/21 History atorvastatin 10 mg tablet 10 mg PO DAILY 03/03/20 07/16/21 History latanoprost 0.005 % eye drops 1 drp OPHTHALMIC (EYE) BEDTIME 03/03/20 07/16/21 History diazepam 10 mg tablet 10 mg PO TID PRN 07/14/21 07/16/21 History ferrous sulfate 325 mg (65 mg 325 mg PO DAILY 07/14/21 07/16/21 History iron) tablet losartan 100 1 tab PO DAILY 07/14/21 07/16/21 History mg-hydrochlorothiazide 25 mg tablet omega-3 fatty acids 500 mg capsule 500 mg PO DAILY 07/14/21 07/16/21 History pantoprazole 20 mg tablet,delayed 20 mg PO DAILY 07/14/21 07/16/21 History release sucralfate 1 gram tablet 1 g PO BID 07/14/21 07/16/21 History carvedilol 12.5 mg tablet 12.5 mg PO BID 07/15/21 07/16/21 History levothyroxine 150 mcg tablet 150 mcg PO DAILY 07/15/21 07/16/21 History ropinirole 1 mg tablet 1 mg PO DAILY 07/15/21 07/16/21 History vitamin B complex 1 tab PO DAILY 07/15/21 07/16/21 History Allergies/Adverse Reactions Allergy/AdvReac Type Severity Reaction Status Date / Time clarithromycin [From Biaxin] Allergy Severe swells Verified 07/16/21 06:51 metoclopramide [From Reglan] Allergy Unknown UNKNOWN Verified 07/16/21 06:51 Penicillins Allergy Unknown Verified 07/16/21 06:51 tetracycline Allergy Unknown Verified 07/16/21 06:51 Current Medications: Generic Name Dose Route Start Last Admin Trade Name Tazq PRN Reason Stop Dose Admin Vancomycin/PEG/NADA/Lysine/Water 1,500 mg in 300 mls @ 200 mls/hr 07/16/21 06:44 07/16/21 07:32 Vancocin IV 07/16/21 08:13 200 mls/hr [employer]ENT ONE Administration Protocol Sodium Chloride 1,000 mls @ 30 mls/hr 07/16/21 07:15 07/16/21 07:32 Sodium Chloride 0.9% IV 30 mls/hr .Q24H HEMANTH Administration Pertinent History/Comorbid Conditions* Medical History (Updated 06/02/21 @ 13:43 by Viet Dominguez MD) COVID-19 Hypertension Sleep apnea Thyroid cancer Surgical History (Updated 02/24/21 @ 15:52 by Viet Dominguez MD) H/O carpal tunnel repair H/O knee surgery H/O neck surgery H/O: hysterectomy History of appendectomy History of esophagogastroduodenoscopy History of liver biopsy Hx laparoscopic cholecystectomy S/P angiogram of extremity Status post colonoscopy Family History (Updated 02/24/21 @ 15:24 by Harper Buckner MA) Cancer Social History Smoking and tobacco status: never smoked Alcohol intake: never History of recent travel: No Pertinent Exam Findings alert, oriented x 3 and regular rate & rhythm Recommendations Surgery/Procedure today Coding Level of Care Code Acute Support Architect for Dennys Mendosa
--- NOTE | 2021-07-16 08:27 | ANES.PREANE2 ---
Pre-Anesthetic Assessment Height/Weight: Height 1.7 m Weight 98.883 kg Temp Pulse Resp BP Pulse Ox 98.3 F 72 18 151/78 96 07/16/21 07:10 07/16/21 07:10 07/16/21 07:10 07/16/21 07:10 07/16/21 07:10 Preop Diagnosis: abdominal wall mass Operation Date: 07/16/21 08:00 Proposed Procedures p Excision abd wall mass 507918/r22.22(Not Applicable) - Viet Dominguez MD Familial anesthetic complications: None Was Beta Masha taken within 24 hours: N/A Was Clonidine taken within 24 hours: N/A Last intake: Intake Last Liquid Date 07/15/21 Last Liquid Time 23:50 Last Solid Date 07/15/21 Last Solid Time 19:00 Social No alcohol and No tobacco Exam alert, oriented x 3, clear to auscultation bilaterally and regular rate & rhythm Airway Submandibular: within normal limits Cervical ROM: within normal limits Mallampati: Class II Dentition: chipped Comments: Comments: Missing several GI Gastroesophageal Reflux Disease Metabolic Morbid Obesity and Thyroid Disease [facility] Osteoarthritis/DJD Neuropsych Anxiety, Depression and Neuropathy Anesthetic Plan ASA status: 3 Anesthesia: General Risk of > 500 ml blood loss (7ml/kg in children): No Medications/Allergies Home Medications Medication Instructions Recorded Confirmed Last Taken Type aspirin 81 mg tablet,delayed 81 mg PO DAILY 01/02/20 07/16/21 07/15/21 History release bupropion HCl 300 mg 24 hr tablet, 300 mg PO QAM 01/02/20 07/16/21 07/15/21 History extended release (Wellbutrin XL) celecoxib 200 mg capsule (Celebrex) 200 mg PO DAILY 01/02/20 07/16/21 02/25/20 History cholecalciferol (vitamin D3) 125 125 mcg PO DAILY 01/02/20 07/16/21 07/15/21 History mcg (5,000 unit) capsule citalopram 40 mg tablet (Celexa) 40 mg PO DAILY tab 01/02/20 07/16/21 07/15/21 History mecobalamin (vitamin B12) 1,000 1,000 mcg PO DAILY 01/02/20 07/16/21 03/03/20 History mcg chewable tablet (B12 Active) quetiapine 100 mg tablet (Seroquel) 100 mg PO DAILY 01/02/20 07/16/21 07/15/21 History atorvastatin 10 mg tablet 10 mg PO DAILY 03/03/20 07/16/21 07/15/21 History latanoprost 0.005 % eye drops 1 drp OPHTHALMIC (EYE) BEDTIME 03/03/20 07/16/21 07/15/21 History hydrocodone 5 mg-acetaminophen 325 1 tab PO Q6H PRN 8 Days #30 tab 03/04/20 07/16/21 07/15/21 Rx mg tablet ([place]) diazepam 10 mg tablet 10 mg PO TID PRN 07/14/21 07/16/21 Unknown History ferrous sulfate 325 mg (65 mg 325 mg PO DAILY 07/14/21 07/16/21 07/15/21 History iron) tablet losartan 100 1 tab PO DAILY 07/14/21 07/16/21 07/15/21 History mg-hydrochlorothiazide 25 mg tablet omega-3 fatty acids 500 mg capsule 500 mg PO DAILY 07/14/21 07/16/21 Unknown History pantoprazole 20 mg tablet,delayed 20 mg PO DAILY 07/14/21 07/16/21 07/15/21 History release sucralfate 1 gram tablet 1 g PO BID 07/14/21 07/16/21 Unknown History carvedilol 12.5 mg tablet 12.5 mg PO BID 07/15/21 07/16/21 07/16/21 History levothyroxine 150 mcg tablet 150 mcg PO DAILY 07/15/21 07/16/21 07/16/21 History ropinirole 1 mg tablet 1 mg PO DAILY 07/15/21 07/16/21 07/15/21 History vitamin B complex 1 tab PO DAILY 07/15/21 07/16/21 07/15/21 History hydrocodone 5 mg-acetaminophen 325 1 tab PO Q6H PRN #20 tab 07/16/21 Unknown Rx mg tablet Allergies Allergy/AdvReac Type Severity Reaction Status Date / Time clarithromycin [From Biaxin] Allergy Severe swells Verified 07/16/21 06:51 metoclopramide [From Reglan] Allergy Unknown UNKNOWN Verified 07/16/21 06:51 Penicillins Allergy Unknown Verified 07/16/21 06:51 tetracycline Allergy Unknown Verified 07/16/21 06:51 Current Medications Generic Name Dose Route Start Last Admin Trade Name Tazq PRN Reason Stop Dose Admin Sodium Chloride 1,000 mls @ 30 mls/hr 07/16/21 07:15 07/16/21 07:32 Sodium Chloride 0.9% IV 30 mls/hr .Q24H HEMANTH Administration PFSH Anesthesia Medical History COVID-19 Hypertension Sleep apnea Thyroid cancer Surgical History (Updated 07/16/21 @ 08:13 by Viet Dominguez MD) H/O carpal tunnel repair H/O knee surgery H/O neck surgery H/O: hysterectomy History of appendectomy History of esophagogastroduodenoscopy History of excision of mass (07/16/21) History of liver biopsy Hx laparoscopic cholecystectomy S/P angiogram of extremity Status post colonoscopy Family History Other Cancer Social History Smoking and tobacco status: never smoked Alcohol intake: never History of recent travel: No Data Anesthesia Cardiac Studies: No Data to Display
[2021-07-16] MEDS: lidocaine 1% INJ 50 mL INJECTION (08:30)
--- NOTE | 2021-07-16 09:27 | P.OP_ITS ---
Operative Report Date of procedure: July 16, 2021 Pre-op diagnosis: Right lower quadrant abdominal wall mass Post-op diagnosis: Lipoma right lower quadrant abdominal wall measuring 6 x 5 cm Procedure done: Excision of subcutaneous mass from right lower quadrant abdominal wall Specimens removed/disposition: Mass abdominal wall Surgeon: Viet Dominguez Anesthesia: MAC Condition: stable Disposition: PACU Procedure: The patient was taken to the operating room and placed under MAC after IV antibiotic had been administered. The abdomen was prepped and draped in sterile manner. 1% lidocaine with 0.5 % Marcaine was infiltrated around the palpable mass in the right lower quadrant. Using a 15 blade a 4 cm incision was made, subcutaneous tissue was divided using electrocautery and the lipoma measuring about 6 x 5 cm was dissected free from the surrounding subcutaneous tissue and underlying muscular fascia and sent to pathology. Through the surgical wound I examined the area of tenderness in the suprapubic area and there was no evidence of incarcerated hernia. Wound was irrigated with saline, hemostasis ensured and subcutaneous tissues were approximated using i nterrupted 3-0 Vicryl suture and skin was closed using running subcuticular 4-0 Monocryl suture and Dermabond. The patient was extubated and transferred to recovery room in stable condition.
--- NOTE | 2021-07-16 14:39 | ANE.PACU2 ---
Inpatient post-anesthesia follow up: Airway intact: Yes Vital signs: Temperature 97.4 F Pulse Rate 63 Respiratory Rate 18 Blood Pressure 127/59 Pulse Oximetry 95 Oxygen Delivery Me thod Room Air Oxygen Flow Rate 6 Fraction of Inspir ed Oxygen Hydration adequate: Yes Nausea and vomiting: No Pain level: 2 Mental status: Baseline
== END 2021-07-16 09:39 | disposition home or self-care (01) ==
PROVIDERS: PCP Family Medicine; Visit Provider Surgery
PROC: (CPT 11406; principal; 2021-07-16 08:00)
DX: D17.1 Benign lipomatous neoplasm of skin and subcutaneous tissue of trunk (principal); K21.9 Gastro-esophageal reflux disease without esophagitis; E66.01 Morbid (severe) obesity due to excess calories; Z68.34 Body mass index [BMI] 34.0-34.9, adult; F41.9 Anxiety disorder, unspecified; F32.9 Major depressive disorder, single episode, unspecified; Z79.82 Long term (current) use of aspirin; Z86.16 Personal history of COVID-19; I10 Essential (primary) hypertension; G47.30 Sleep apnea, unspecified; Z85.850 Personal history of malignant neoplasm of thyroid
CPT/HCPCS: 11406; 12032; 88307; J2250; J2704; J3010; J3370; J3490; J7030

== ENCOUNTER → 2021-07-28 08:42 | Outpatient (BNVA) | payer MEDICARE, SELFPAY | PROVIDERS: PCP Family Medicine; Visit Provider Surgery | DX: Z98.890 Other specified postprocedural states (principal) | CPT/HCPCS: 99213 ==

== ENCOUNTER → 2021-11-09 00:01 | Outpatient (BNVA) | payer MEDICARE, SELFPAY | PROVIDERS: PCP Family Medicine; Visit Provider Family Medicine | DX: I10 Essential (primary) hypertension (principal); Z51.81 Encounter for therapeutic drug level monitoring; R73.03 Prediabetes; R30.0 Dysuria; G62.89 Other specified polyneuropathies | CPT/HCPCS: 80053; 81000; 83036; 85025; 87077; 87086; 87184 ==

== ENCOUNTER → 2021-11-30 15:35 | Outpatient (BNVA) | payer MEDICARE, SELFPAY | PROVIDERS: PCP Family Medicine; Visit Provider Family Medicine | DX: Z51.81 Encounter for therapeutic drug level monitoring (principal); N39.0 Urinary tract infection, site not specified; K29.70 Gastritis, unspecified, without bleeding; I10 Essential (primary) hypertension | CPT/HCPCS: 80053; 85025 ==

== ENCOUNTER → 2021-12-10 13:40 | Outpatient (BNVA) | payer MEDICARE, SELFPAY | PROVIDERS: PCP Family Medicine; Visit Provider Family Medicine | DX: N39.0 Urinary tract infection, site not specified (principal) | CPT/HCPCS: 87086 ==

== ENCOUNTER → 2022-04-01 13:47 | Outpatient (BNVA) | payer MEDICARE, SELFPAY | PROVIDERS: PCP Family Medicine; Visit Provider Family Medicine | DX: E11.9 Type 2 diabetes mellitus without complications (principal); E55.9 Vitamin D deficiency, unspecified; Z13.220 Encounter for screening for lipoid disorders; I10 Essential (primary) hypertension; E53.8 Deficiency of other specified B group vitamins; Z00.00 Encounter for general adult medical examination without abnormal findings; Z51.81 Encounter for therapeutic drug level monitoring | CPT/HCPCS: 80053; 80061; 82306; 83036; 85025 ==

== ENCOUNTER → 2022-07-06 17:33 | Outpatient (BNVA) | payer MEDICARE, SELFPAY | PROVIDERS: PCP Family Medicine; Visit Provider Nurse Practitioner Family | DX: N39.0 Urinary tract infection, site not specified (principal) | CPT/HCPCS: 81000 ==

== ENCOUNTER → 2022-08-02 15:49 | Outpatient (BNVA) | payer MEDICARE, SELFPAY | PROVIDERS: PCP Family Medicine; Visit Provider Clinical Nurse Specialist Adult Health | DX: R30.0 Dysuria (principal); N30.00 Acute cystitis without hematuria | CPT/HCPCS: 81000; 87086 ==

== ENCOUNTER → 2022-08-19 14:15 | Outpatient (BNVA) | payer MEDICARE, SELFPAY | PROVIDERS: PCP Family Medicine; Visit Provider Family Medicine | DX: Z51.81 Encounter for therapeutic drug level monitoring (principal); E03.9 Hypothyroidism, unspecified; R73.09 Other abnormal glucose; Z13.220 Encounter for screening for lipoid disorders | CPT/HCPCS: 80053; 80061; 83036; 84439; 84443; 85025 ==

== ENCOUNTER → 2022-10-11 15:25 | Outpatient (BNVA) | payer MEDICARE, SELFPAY | PROVIDERS: PCP Family Medicine; Referring Provider Family Medicine; Visit Provider Student in an Organized Health Care Education/Training Program | DX: M12.812 Other specific arthropathies, not elsewhere classified, left shoulder (principal) | CPT/HCPCS: 73030; 99204 ==

== ENCOUNTER → 2022-11-26 10:30 | Outpatient (BNVA) | payer MEDICARE, SELFPAY | PROVIDERS: PCP Family Medicine; Visit Provider Clinical Nurse Specialist Adult Health | DX: N30.00 Acute cystitis without hematuria (principal); Z00.00 Encounter for general adult medical examination without abnormal findings; N39.0 Urinary tract infection, site not specified; R30.0 Dysuria | CPT/HCPCS: 81000; 87077; 87086; 87184; 88175 ==

== ENCOUNTER 2022-12-02 15:45 | Outpatient (CLI) | payer MEDICARE, SELFPAY ==
--- NOTE | 2022-12-02 15:57 | XRR_ITS ---
PROCEDURE INFORMATION: Exam: XR Right Shoulder Exam date and time: 12/02/2022 4:06 PM Age: 67 years old Clinical indication: Pain; Shoulder; Right; Patient HX: HX of thyroid cancer; Additional info: Right shoulder pain TECHNIQUE: Imaging protocol: Radiologic exam of the right shoulder. Views: 2 or more views. COMPARISON: CR XR shoulder RT min 2V* [id number] 01/26/2021 10:22 AM FINDINGS: Bones/joints: Normal. Soft tissues: Normal. XR/XR shoulder RT min 2V* [id number] IMPRESSION: No acute findings.
== END 2022-12-02 15:46 | disposition home or self-care (01) ==
PROVIDERS: PCP Family Medicine; Visit Provider Family Medicine
DX: M25.511 Pain in right shoulder (principal); Z85.850 Personal history of malignant neoplasm of thyroid
CPT/HCPCS: 73030

== ENCOUNTER → 2022-12-16 13:46 | Outpatient (BNVA) | payer MEDICARE, SELFPAY | PROVIDERS: PCP Family Medicine; Visit Provider Student in an Organized Health Care Education/Training Program | DX: M19.011 Primary osteoarthritis, right shoulder (principal); M75.42 Impingement syndrome of left shoulder; M75.122 Complete rotator cuff tear or rupture of left shoulder, not specified as traumatic; S46.211A Strain of muscle, fascia and tendon of other parts of biceps, right arm, initial encounter; X58.XXXA Exposure to other specified factors, initial encounter; M75.41 Impingement syndrome of right shoulder | CPT/HCPCS: 20610; 99214; J3301 ==

== ENCOUNTER → 2022-12-21 08:56 | Outpatient (BNVA) | payer MEDICARE, SELFPAY | PROVIDERS: PCP Family Medicine; Visit Provider Family Medicine | DX: R30.0 Dysuria (principal) | CPT/HCPCS: 87086 ==

== ENCOUNTER 2023-01-12 11:30 | Day surgery (SDC) | payer MEDICARE, SELFPAY ==
[2023-01-11 10:56] VITALS: BMI 35.5
[2023-01-12] VITALS (7 sets, daily range): BP systolic 119–176; BP diastolic 59–83; PULSE 63–80; RESP 16–17; TEMP 36.2–37; O2SAT 93–98
[2023-01-12] MEDS: sodium chloride 0.9% 1,000 ML 30 ML IV (11:57)
[2023-01-12] MEDS: acetaminophen 1,000 MG/100 ML PIGGYBACK 400 MG IV (11:58)
[2023-01-12] MEDS: ketorolac 30 mg/mL INJ IVP (11:58)
[2023-01-12] MEDS: famotidine 20 mg/2 mL INJ IVP (13:01)
[2023-01-12] MEDS: midazolam 1 mg/mL INJ 2 mL 2 MG IVP (13:08)
--- NOTE | 2023-01-12 13:37 | P.ANESASSM_ITS ---
Pre-Anesthetic Assessment Height/Weight: Height 1.7 m Weight 102.965 kg Temp Pulse Resp BP Pulse Ox O2 Del Method 98.6 F 63 17 128/72 97 Room Air 01/12/23 11:38 01/12/23 11:38 01/12/23 11:38 01/12/23 11:38 01/12/23 11:38 01/12/23 11:44 Preop Diagnosis: Left shoulder rotator cuff tear, AC joint arthritis, subacromial impingemen Operation Date: 01/12/23 13:05 Proposed Procedures p LEFT SHOULDER DIAGNOSTIC AND SHOULDER ARTHROSCOPY 84271 [id number],M19.019 S46.219A M75.42(Left) - Shashi [place], DO s ITH BICEPS TENOTOMY(Left) - Shashi [place], DO s ACROMIOCLAVICULAR RESECTION(Left) - Shashi Lion, DO s SUBACROMIAL DECOMPRESSION(Left) - Shashi Lion, DO s Rotator Cuff Repair - Arthroscopy(Left) - Shashi Lion, DO s POSSIBLE SUBACROMIAL BALLOON SPACE(Left) - Shashi Lion, DO Familial anesthetic complications: none Was Beta Masha taken within 24 hours: Yes Was Clonidine taken within 24 hours: N/A Last intake: Intake Last Liquid Date 01/11/23 Last Liquid Time 21:00 Last Solid Date 01/11/23 Last Solid Time 21:00 Social No alcohol and No tobacco Exam alert, oriented x 3, clear to auscultation bilaterally and regular rate & rhythm Airway Submandibular: within normal limits Cervical ROM: within normal limits Mallampati: Class II Dentition: false Pulmonary Sleep Apnea CV/HEM Hypertension GI Gastroesophageal Reflux Disease Metabolic Hyperlipidemia, Morbid Obesity and Thyroid Disease Neuropsych Anxiety, Cerebrovascular Accident and Neuropathy Anesthetic Plan ASA status: 3 Anesthesia: General and Regional (specify below) (left interscalene nerve blk) Medications/Allergies Home Medications Medication Instructions Recorded Confirmed Last Taken Type aspirin 81 mg tablet,delayed 81 mg PO DAILY 01/02/20 01/11/23 01/04/23 History release bupropion HCl 300 mg 24 hr tablet, 300 mg PO QAM 01/02/20 01/11/23 01/11/23 History extended release (Wellbutrin XL) cholecalciferol (vitamin D3) 125 125 mcg PO DAILY 01/02/20 01/11/23 01/11/23 History mcg (5,000 unit) capsule citalopram 40 mg tablet (Celexa) 40 mg PO DAILY 01/02/20 01/11/23 01/11/23 History mecobalamin (vitamin B12) 1,000 1,000 mcg PO DAILY 01/02/20 01/11/23 01/11/23 History mcg chewable tablet (B12 Active) latanoprost 0.005 % eye drops 1 drp ophthalmic (eye) BEDTIME 03/03/20 01/11/23 01/10/23 History diazepam 10 mg tablet 10 mg PO TID PRN Anxiety 07/14/21 01/11/23 Unknown History ferrous sulfate 325 mg (65 mg 325 mg PO DAILY 07/14/21 01/11/23 01/11/23 History iron) tablet omega-3 fatty acids 500 mg capsule 500 mg PO DAILY 07/14/21 01/11/23 01/04/23 History levothyroxine 150 mcg tablet 150 mcg PO DAILY 07/15/21 01/11/23 01/12/23 History vitamin B complex 1 tab PO DAILY 07/15/21 01/11/23 01/11/23 History sucralfate 1 gram tablet 1 g PO BID #120 tabs 11/09/21 01/11/23 01/11/23 Rx loratadine 5 mg-pseudoephedrine ER 1 tab PO Q12H PRN allergy symptoms 09/08/22 01/11/23 Unknown Rx 120 mg tablet,extended #60 tabs release,12hr (Claritin-D 12 Hour) atorvastatin 10 mg tablet 10 mg PO DAILY #90 tabs 09/22/22 01/11/23 01/11/23 Rx buspirone 5 mg tablet 5 mg PO TID 11/26/22 01/11/23 01/11/23 History carisoprodol 350 mg tablet 350 mg PO BID PRN muscle pain #30 12/08/22 01/11/23 01/10/23 Rx tabs pantoprazole 20 mg tablet,delayed 20 mg PO BID #180 tabs 12/27/22 01/11/23 01/11/23 Rx release hydrocodone 5 mg-acetaminophen 325 1 tab PO Q6H PRN pain 30 days #120 12/28/22 01/11/23 01/11/23 Rx mg tablet tabs carvedilol 12.5 mg tablet 12.5 mg PO BID 01/11/23 01/11/23 01/12/23 History losartan 100 1 tab PO DAILY 01/11/23 01/11/23 01/11/23 History mg-hydrochlorothiazide 25 mg tablet ropinirole 1 mg tablet 1 mg PO QPM 01/11/23 01/11/23 01/10/23 History Allergies Allergy/AdvReac Type Severity Reaction Status Date / Time clarithromycin [From Biaxin] Allergy Severe swells Verified 01/12/23 11:41 metoclopramide [From Reglan] Allergy Unknown UNKNOWN Verified 01/12/23 11:41 metronidazole [From Flagyl] Allergy ADR-Abdominal Verified 01/12/23 11:41 Pain Penicillins Allergy Unknown Verified 01/12/23 11:41 tetracycline Allergy Unknown Verified 01/12/23 11:41 Current Medications Generic Name Dose Route Start Last Admin Trade Name Freq PRN Reason Stop Dose Admin Sodium Chloride 1,000 mls @ 30 mls/hr 01/12/23 11:45 01/12/23 11:57 Sodium Chloride 0.9% IV 01/13/23 11:44 30 mls/hr .Q24H HEMANTH Administration Midazolam HCl 2 mg 01/12/23 11:33 01/12/23 13:08 Midazolam 1 Mg/Ml Inj 2 Ml IVP 2 mg Q5M PRN Administration Preop Anxiety PFSH Anesthesia Medical History Acromioclavicular joint arthritis COVID-19 Hypertension Sleep apnea Subacromial impingement of left shoulder Tear of biceps tendon Thyroid cancer Surgical History H/O carpal tunnel repair H/O knee surgery H/O neck surgery Repeat cervical spine surgery on 03/15/22 H/O: hysterectomy History of appendectomy History of esophagogastroduodenoscopy History of excision of mass (07/16/21) History of eye surgery History of liver biopsy Hx laparoscopic cholecystectomy S/P angiogram of extremity Status post colonoscopy Family History Other Cancer Social History Smoking and tobacco status: never smoked Alcohol intake: never Substance/Drug Use: never Data Anesthesia Cardiac Studies: No Data to Display Anesthesia Procedures Nerve Block Nerve Block 1: Main Anesthesia: general anesthesia Time Out Performed: Yes Consent: requested by attending/covering physician, from patient, risks and benefits reviewed and patient agrees to proceed Nerve block location: interscalene Anesthesia monitors applied: pulse oximetry, EKG, BP cuff and oxygen Nerve block position: semi sitting Anesthetic Used: ropivicaine 0.5% Amount of anesthesia used (mL): 30 Ultrasound used to: recognize landmarks and visualize and ID brachial plexus Nerve Stimulator Used?: No Interscalene/Femoral BLK: 2 stimuplex 22 g needle used for position and inplane approach Injection: neg aspiration of heme Patient Tolerated Procedure: well Complications: none
--- NOTE | 2023-01-12 13:48 | W.PM.OPSUD ---
Surgery/Procedure H&P Update DATE OF PROCEDURE: January 12, 2023 DATE H&P PERFORMED: 12/16/22 H&P UPDATE INFORMATION: I have reviewed H&P completed within last 30 days, I have examined patient prior to procedure and No changes to prior documentation PREOP DIAGNOSIS: Left shoulder rotator cuff tear, AC joint arthritis, subacromial impingemen PRIMARY INDICATION FOR PROCEDURE: Left shoulder recurrent rotator cuff tear, AC joint arthritis subacromial impingement, biceps tendinitis/tear PLANNED PROCEDURE: Operation Date: 01/12/23 13:05 Proposed Procedures p LEFT SHOULDER DIAGNOSTIC AND SHOULDER ARTHROSCOPY 00316 [id number] 58630,M19.019 S46.219A M75.42(Left) - Shashi Seymour, s ITH BICEPS TENOTOMY(Left) - Shashi Seymour DO s ACROMIOCLAVICULAR RESECTION(Left) - DO jacque Steven SUBACROMIAL DECOMPRESSION(Left) - DO jacque Steven Rotator Cuff Repair - Arthroscopy(Left) - DO jacque Steven POSSIBLE SUBACROMIAL BALLOON SPACE(Left) - Shashi Seymour,
[2023-01-12] MEDS: ceFAZolin 2,000 MG in sodium chloride 0.9% (plus) 50 ML 100 MG IV (13:51)
--- NOTE | 2023-01-12 15:55 | PM.OP ---
Operative Report Date of procedure: December Surgeon: Shashi Seymour DO Certified Histologic Technician: Gus Seymour PA-C: JIMMY was necessary for assistance in this case for assistance in holding shoulder positioning as well as assistance with instrumentation and passing as well as to assist with wound closure. Procedure: Preoperative diagnosis: Left shoulder pain Left shoulder recurrent rotator cuff tear status postrepair Left shoulder AC joint arthritis Left shoulder subacromial impingement Left shoulder biceps tendinitis Post-op diagnosis:? Left?shoulder massive rotator cuff repair (nonrepairable) Left?shoulder?biceps tendon tear Left shoulder labral tearing Left shoulder glenohumeral joint arthritis Left?shoulder?AC joint arthritis Left?shoulder?subacromial bursitis/impingement Procedure done: Left?shoulder?diagnostic and surgical arthroscopy biceps tenotomy Left?shoulder?diagnostic and surgical arthroscopy labral debridement Left shoulder diagnostic and surgical arthroscopy with glenohumeral joint chondroplasty Left?shoulder?diagnostic and surgical arthroscopy acromioclavicular joint resection Left?shoulder?diagnostic and surgical arthroscopy subacromial decompression (acromioplasty and bursectomy) Left shoulder diagnostic and surgical arthroscopy rotator cuff debridement with subacromial balloon spacer for massive rotator cuff tear Surgeon: Shashi Seymour DO Estimated blood loss: [10]mL IV fluids: See anesthesia record Implants: Medium size [place] and space subacromial balloon Complications: None Condition: stable Disposition: same day Brief History: Patient been seen and worked up in the outpatient setting for Left?shoulder?pain.? Pt had an MRI consistent with patient's medical record over the evidence of her large rotator cuff free tear from a previous repair. Patient's failed conservative treatment and has weakness.? Patient has findings consistent of a retear of a previous left shoulder rotator cuff repair. We talked about treatment options far as nonoperative and operative intervention..? We talked about risk benefits complication alternatives surgical nonsurgical treatment options.? Understanding risk of surgery pt agrees to proceed with surgical intervention.? All questions have been answered at this time.? Patient elects proceed with surgery and consent obtained in office. Procedure: Patient seen evaluated in the preoperative holding area.? Consent reviewed and signed with patient.? Once again reviewed patient's MRI results as well as? planned surgical intervention.? Correct extremity marked.? Patient seen evaluated by anesthesia department received regional anesthesia.? Once ready for surgery was taken back to the operative suite.? Patient then subsequently underwent anesthesia per the anesthesia department was transported onto the OR table.? Patient was then placed into a lateral decubitus position with a beanbag and was appropriately secured to the bed.? All bony prominences well-padded.? Patient then had the Left upper extremity was then prepped and draped in standard orthopedic fashion.? Patient received appropriate preoperative antibiotics.? Final timeout performed. The Left upper extremity was then held in hanging from traction utilizing sterile technique.? Next started with standard diagnostic and surgical arthroscopy with posterior portal position introduced arthroscope into the glenohumeral joint.? Visualized the glenohumeral joint I then introduced a spinal needle within the rotator cuff interval to confirm appropriate anterior portal placement.? Once this was confirmed I then made my small incision and then introduced my arthroscopic shaver into the glenohumeral joint.? After thorough debridement was clearly evident patient had a significant erythema as well as positive liftoff sign of the biceps anchor and biceps tendon tear as it was pulled within the joint.? Decision at this time was made to perform a biceps tenotomy.? Introduced a thermal wand and a biceps tenotomy was performed to completion With appropriate release.? Next I evaluated the subscapularis tendon which was intact and no evidence of tear. ?Next there was significant labral tearing at biceps anchor and circumferential.? ? I then subsequently utilized a a arthroscopic shaver and thermal wand to perform a labral debridement.? This point time I then visualized the glenohumeral joint.? The glenohumeral joint was found to have grade 2-3? chondromalacia throughout.? I utilized arthroscopic shaver and thermal wand to perform glenohumeral joint chondroplasty to stable articular tissue. Infrapatellar pouch was free of loose bodies from viewing the posterior portal.? Next a visualized the rotator cuff superiorly and there was found to be a large tear with exposed suture and retracted supraspinatus tendon to the level of the glenoid. Of the supraspinatus tendon.? I utilized a spinal needle to david this location.? ?This completed my work within the glenohumeral joint all fluid was suctioned free of the joint.? ?Next I reintroduced the arthroscope posteriorly.? And went to the subacromial space.? I established my lateral working portal at the site of which my spinal needle was marking of the rotator cuff tear.? Thermal wand was then introduced laterally and then I subsequently performed extensive bursectomy of the subacromial space.? I then subsequently utilizing my spinal needle debrided the area of the rotator cuff to better assess the tear this tear was a massive tear retracted to the level of the glenoid I utilized my arthroscopic soft tissue grasper and tried to mobilize the tissue but this tissue was poor fatty and significantly attenuated there is no evidence of excursion at this point in time this was considered a massive rotator cuff tear with no evidence or ability for repair or even a partial repair. Given this current nature I selected to place a subacromial balloon to help with the humeral head depressor. In order for preparation of this I performed a standard bursectomy. I then utilized my thermal wand to identify the subacromial space and performed a gentle subacromial decompression just to flatten the acromion. The CA ligament was left intact, I then identified the AC joint. Once identified the AC joint this was very arthritic in nature.? Thermal wand was placed anteriorly to establish appropriate plane for AC joint resection.? Once appropriate margins and anterior inferior and anterior capsule was released I then introduced arthroscopic shaver and a bur and performed AC joint resection of both the acromion to cope plane at the AC joint and a distal clavicle resection was then performed totaling 1 cm in size and was confirmed.? This completed my AC joint resection. At this point in time I then proceeded with placement of a subacromial balloon in space. I utilized arthroscopic grasper to remove any excess suture that was remanent throughout the old repair. At this point in time I utilized the standard measuring device utilizing arthroscopic probe and this was determined to have appropriate space for a medium sized this was then selected and opened by the rep and handed to my staff. I then utilizing the interspace deployment device this was then laid into the subacromial space placed into appropriate position the balloon was then exposed and the balloon was then subsequently filled with normal saline to the appropriate amount per [place] [employer] protocol. The device was then disengaged and the balloon was inspected this stayed in stable position I then mobilized the shoulder and the humeral head remained depressed and in its appropriate position while it was taken through range of motion of the wound stayed in stable position and had satisfactory placement. This completed the surgery.? All fluid was suctioned from the?shoulder.? All instruments were removed.? The lateral incision was then closed with nylon stitches.? As well as the portal sites closed with portal nylon stitches.? Xeroform 4 x 4's ABD and tape was then applied to the Left?shoulder?and was placed into a?shoulder?abduction pillow sling..? Patient was then awakened from anesthesia and then taken back to PACU in stable condition.? Patient tolerated procedure without any issues. Disposition: Patient taken back in stable condition recovering well.? Dressings on in place clean dry and intact.? Will be nonweightbearing to the Left upper extremity.? Follow appropriate PT protocol.? Patient to follow-up with me in the office in 2 weeks.? Patient will receive appropriate discharge instruction as well as pain medication postoperatively.? All questions answered.? We will contact the office for any questions or concerns.
--- NOTE | 2023-01-12 15:57 | P.BOP_ITS ---
Date of procedure: [January 12, 2023] Surgeon name: [Dr. Lion DAVENPORT] Finished Cloth Checker(s) name(s): [Gus Seymour physician technician assistant] Procedure(s) performed: [Left shoulder diagnostic and shoulder arthroscopy with biceps tendon anatomy, and acromioclavicular resection, subacromial decompression and subacromial balloon] Description of findings: [Extensive rotator cuff tear, AC joint arthritis, subacromial impingement] Estimated blood loss: [10 ml] Specimen(s) removed: [none] Post-operative diagnosis: [Extensive Rotator cuff tear, AC joint arthritis, subacromial impingement]
--- NOTE | 2023-01-12 16:01 | PM.PACU ---
PACU note Narrative: Pt is a 67-year-old female that just underwent a left shoulder diagnostic and arthroscopy.Patient transferred to PACU in stable condition. Pain is well controlled. shoulder Dressing on , dry and in place. pt is wearing ultra sling on left shoulder. Patient's operative arm is in a shoulder immobilizer. Patient is awake and alert and able to respond to my questions accordingly. Patient's fingers are warm with good perfusion. Normal cap refill under 2 seconds. Unable to assess further range of motion in arm due to sling. Unable to assess sensation due to residual regional anesthetic. Exam: awake Disposition: discharged
--- NOTE | 2023-01-12 16:44 | ANE.PACU2 ---
Inpatient post-anesthesia follow up: Airway intact: Yes Vital signs: Temperature 97.8 F Pulse Rate 74 Respiratory Rate 17 Blood Pressure 176/81 Pulse Oximetry 95 Oxygen Delivery Me thod Room Air Oxygen Flow Rate 6 Fraction of Inspir ed Oxygen Hydration adequate: Yes Nausea and vomiting: No Pain level: 1 Mental status: Baseline
== END 2023-01-12 17:15 | disposition home or self-care (01) ==
PROVIDERS: PCP Family Medicine; Visit Provider Student in an Organized Health Care Education/Training Program
PROC: (CPT 29805; principal; 2023-01-12 12:55)
PROC: (CPT 23405; 2023-01-12 12:55)
PROC: 0RSH0ZZ Reposition Left Acromioclavicular Joint, Open Approach (ICD-10-PCS; CPT 29824; 2023-01-12 12:55)
PROC: (CPT 29826; 2023-01-12 12:55)
PROC: (CPT 29999; 2023-01-12 12:55)
PROC: (CPT 29824; 2023-01-12 12:55)
DX: M75.102 Unspecified rotator cuff tear or rupture of left shoulder, not specified as traumatic (principal); M19.012 Primary osteoarthritis, left shoulder; M75.42 Impingement syndrome of left shoulder; M75.22 Bicipital tendinitis, left shoulder; G47.30 Sleep apnea, unspecified; I10 Essential (primary) hypertension; K21.9 Gastro-esophageal reflux disease without esophagitis; E78.5 Hyperlipidemia, unspecified; E66.01 Morbid (severe) obesity due to excess calories; Z68.35 Body mass index [BMI] 35.0-35.9, adult; Z86.73 Personal history of transient ischemic attack (TIA), and cerebral infarction without residual deficits; Z79.82 Long term (current) use of aspirin
CPT/HCPCS: 29824; 29826; 29827; 29828; C9781; J0131; J0690; J1100; J1885; J2250; J2405; J2704; J2710; J2795; J3010; J3490; J7030

== ENCOUNTER → 2023-01-27 13:37 | Outpatient (BNVA) | payer MEDICARE, SELFPAY | PROVIDERS: PCP Family Medicine; Visit Provider Physician Assistant | DX: Z98.890 Other specified postprocedural states (principal) | CPT/HCPCS: 99024 ==

== ENCOUNTER → 2023-01-31 13:56 | Outpatient (BNVA) | payer MEDICARE, SELFPAY | PROVIDERS: PCP Family Medicine; Visit Provider Student in an Organized Health Care Education/Training Program | DX: Z98.890 Other specified postprocedural states (principal) | CPT/HCPCS: 99024 ==

== ENCOUNTER 2023-02-02 13:28 | Outpatient (RCR) | payer MEDICARE, SELFPAY | END 2023-02-15 23:59 | disposition home or self-care (01) | LOC: SPT 13:28 | PROVIDERS: PCP Family Medicine; Visit Provider Student in an Organized Health Care Education/Training Program | DX: Z98.890 Other specified postprocedural states (principal) | CPT/HCPCS: 97110; 97161 ==

== ENCOUNTER 2023-02-16 06:00 | Outpatient (RCR) | payer MEDICARE, SELFPAY | END 2023-03-17 23:59 | disposition home or self-care (01) | LOC: SPT 06:00 | PROVIDERS: PCP Family Medicine; Visit Provider Student in an Organized Health Care Education/Training Program | DX: Z98.890 Other specified postprocedural states (principal) | CPT/HCPCS: 97110 ==

== ENCOUNTER 2023-03-04 18:52 | Emergency (ER) | payer MEDICARE, SELFPAY ==
--- NOTE | 2023-03-04 18:53 | ECG_ITS ---
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 Measurements Intervals [place] Rate: 68 P: 35 WI: 187 QRS: 16 QRSD: 89 T: 66 QT: 394 QTc: 421 Interpretive Statements SINUS RHYTHM LOW QRS VOLTAGE IN PRECORDIAL LEADS [QRS DEFLECTION < 1.0 mV IN CHEST LEADS] POSSIBLE RIGHT VENTRICULAR CONDUCTION DELAY [RSR (QR) IN V1/V2] Compared to ECG 09/20/2016 22:39:11 Low QRS voltage now present T-wave abnormality no longer present Electronically Signed On 03-05-2023 15:15:27 DRAGLINE OPERATOR by Moris Coley M.D. [id number]
--- NOTE | 2023-03-04 18:54 | XRR_ITS ---
PROCEDURE INFORMATION: Exam: XR Chest Exam date and time: 03/04/2023 7:04 PM Age: 68 years old Clinical indication: Chest pressure; Patient HX: RT anterior chest pain; HX thyroid CA TECHNIQUE: Imaging protocol: Radiologic exam of the chest. Views: 1 view. COMPARISON: CR XR chest 1V [id number] 09/20/2016 7:31 PM FINDINGS: Lungs: Unremarkable. No consolidation. Pleural spaces: Unremarkable. No pleural effusion. No pneumothorax. Heart/Mediastinum: Unremarkable. No cardiomegaly. Bones/joints: Prior anterior cervical fusion. XR/XR chest 1V portable [id number] IMPRESSION: No acute findings.
[2023-03-04 18:58] VITALS: BP 167/71; PULSE 71; RESP 20; TEMP 36.8; O2SAT 95
[2023-03-04 19:05] LABS: Basophils % 0.4 %; Eosinophils # 0.2 10^3/uL (0.0-0.8); Eosinophils % 2.9 %; Hematocrit 37.1 % (36-47); Lymphocytes # 2.7 10^3/uL (0.8-4.8); Lymphocytes % 38.7 %; Mean Corpuscular HGB Conc 32.6 g/dL (30-55); Mean Corpuscular Hemoglobin 31.5 pg (27-33); Mean Corpuscular Volume 96.6 fl (85-98); Mean Platelet Volume 9.2 fL (7.4-10.4); Monocytes # 0.4 10^3/uL (0.2-0.9); Neutrophils # 3.54 10^3/uL (1.8-7.7); Neutrophils % 51.6 %; Nucleated Red Blood Cells % 0 %; Platelet Count 199 10^3/cmm (157-399); Red Blood Count 3.84 10^6/uL (3.85-5.65); Red Cell Distribution Width 12.6 % (12.1-15.1); White Blood Count 6.87 10^3/uL (3.29-11.43)
--- NOTE | 2023-03-04 19:14 | W.ED.CHESTPA ---
HPI - Chest Pain General: Chief Complaint: Chest Pain Stated Complaint: chest pain Time Seen by Provider: 03/04/23 18:54 History of Present Illness: Patient presents to the ER with chest pain on the right side. This is reproducible with palpation. This pain started when patient was washing her hair. This pain has been there roughly all day long. Patient did call EMS and was given nitro and aspirin on route. Patient reports a lot of extra stress at her home due to the fact her had a heart attack 5 days ago and had multiple stents placed in his heart. Patient does not have a cardiac history per her. Review of Systems General: Reports: 10 or more systems reviewed and unremarkable except in HPI and below PFSH ED PFSH: Medical History Acromioclavicular joint arthritis COVID-19 Hypertension Sleep apnea Subacromial impingement of left shoulder Tear of biceps tendon Thyroid cancer Surgical History H/O carpal tunnel repair H/O knee surgery H/O neck surgery Repeat cervical spine surgery on 03/15/22 H/O: hysterectomy History of appendectomy History of esophagogastroduodenoscopy History of excision of mass (07/16/21) History of eye surgery History of liver biopsy Hx laparoscopic cholecystectomy S/P angiogram of extremity Status post colonoscopy Family History Other Cancer Social History Smoking and tobacco/nicotine status: never used tobacco/nicotine Alcohol intake: never Substance/Drug Use: never Physical Exam Const: COMMON NORMALS: no acute distress, average body habitus, patient oriented x3, no limitations, healthy appearing, alert and well nourished HENMT: COMMON NORMALS: normocephalic, atraumatic, hearing grossly normal bilaterally, external ears normal, Normal external nose present, moist oral mucous membranes and oropharynx normal HEAD & SCALP: normocephalic and atraumatic NOSE: Normal external nose present EXTERNAL EAR: Yes external ears normal Neck/C-Spine: COMMON NORMALS: full ROM, no lymphadenopathy, supple, no meningeal signs, no JVD and Thyroid normal THYROID: Thyroid normal Chest: COMMONS NORMALS: normal inspection of the chest; negative for normal palpation of entire chest wall (Palpation right anterior chest wall reproduces the pain.) Resp: COMMON NORMALS: normal respiratory effort, No retractions, No use of accessory muscles and clear to auscultation bilaterally AUSCULTATION: clear to auscultation bilaterally Cardio: COMMON NORMALS: no JVD, regular rate, regular rhythm, S1 normal heart sound present, S2 normal heart sound present, No gallops present (Cardio), No clicks present (Cardio), No murmurs present (Cardio) and No rub (Cardio) RATE: regular rate RHYTHM: regular rhythm HEART SOUNDS: S1 normal heart sound present and S2 normal heart sound present GI: COMMON NORMALS: Normal to inspection, nondistended, normoactive bowel sounds present, Soft to palpation, non-tender, No hepatosplenomegaly present and no masses PALPATION: Yes Soft to palpation and Yes No hepatosplenomegaly present Neuro: COMMON NORMALS: patient oriented x3 SENSORIUM/ORIENTATION: Yes alert MENINGEAL SIGNS: Yes no meningeal signs Course Vital Signs: Vital signs: Vital Signs Temperature 98.3 F 03/04/23 18:58 Pulse Rate 69 03/04/23 20:28 Respiratory Rate 18 03/04/23 20:28 Blood Pressure 153/68 03/04/23 20:28 Pulse Oximetry 95 03/04/23 20:28 Oxygen Delivery Me thod Room Air 03/04/23 20:28 MDM - Chest Pain Medical Decision Making patient presented with right-sided anterior chest wall type pain. Patient was worked up in a standard cardiac fashion with serial EKGs lab work. All of which was essentially benign. Is thought that the patient's pain is anterior chest wall and not cardiac in nature. Patient be discharged to be followed up with by her family practitioner in 7 to 10 days or sooner as needed. Differential Diagnosis Unlikely acute massive pulmonary embolism, acute respiratory failure, acute myocardial infarction, cardiac arrest or sudden cardiac Medical Records I reviewed the patient's medical records. Lab Data I reviewed the patient's lab results. 03/04/23 18:37 03/04/23 18:37 Radiology Impressions Chest X-Ray 03/04/23 18:54 IMPRESSION: No acute findings. Laboratory Results WBC 6.87 10^3/uL (3.29-11.43) 03/04/23 18:37 RBC 3.84 10^6/uL (3.85-5.65) L 03/04/23 18:37 Hgb 12.10 g/dL (11.27-16.99) 03/04/23 18:37 Hct 37.1 % (36-47) 03/04/23 18:37 MCV 96.6 fl (85-98) 03/04/23 18:37 MCH 31.5 pg (27-33) 03/04/23 18:37 MCHC 32.6 g/dL (30-55) 03/04/23 18:37 RDW 12.6 % (12.1-15.1) 03/04/23 18:37 Plt Count 199 10^3/cmm (157-399) 03/04/23 18:37 MPV 9.2 fL (7.4-10.4) 03/04/23 18:37 Neut % (Auto) 51.6 % 03/04/23 18:37 Lymph % (Auto) 38.7 % 03/04/23 18:37 [place] % (Auto) 6.0 % 03/04/23 18:37 Eos % (Auto) 2.9 % 03/04/23 18:37 Baso % (Auto) 0.4 % 03/04/23 18:37 Neut # (Auto) 3.54 10^3/uL (1.8-7.7) 03/04/23 18:37 Lymph # (Auto) 2.7 10^3/uL (0.8-4.8) 03/04/23 18:37 [place] # (Auto) 0.4 10^3/uL (0.2-0.9) 03/04/23 18:37 Eos # (Auto) 0.2 10^3/uL (0.0-0.8) 03/04/23 18:37 Baso # (Auto) 0.0 10^3/uL (0.0-0.1) 03/04/23 18:37 Nucleated RBC % (auto) 0 % 03/04/23 18:37 Nucleated RBCs # 0.0 /100WBC 03/04/23 18:37 Sodium 143 mmol/L (136-145) 03/04/23 18:37 Potassium 4.0 mmol/L (3.5-5.1) 03/04/23 18:37 Chloride 105 mmol/L (98-107) 03/04/23 18:37 Carbon Dioxide 28 mmol/L (22-29) 03/04/23 18:37 Anion Gap 14.0 (5-19) 03/04/23 18:37 BUN 13 mg/dL (8-23) 03/04/23 18:37 Creatinine 0.8 mg/dL (0.5-0.9) 03/04/23 18:37 GFR Calculation 71.5 mL/min (90-130) L 03/04/23 18:37 Glucose 137 mg/dL (65-115) H 03/04/23 18:37 Calculated Osmolality 298 mOsm/kg (285-295) H 03/04/23 18:37 Calcium 9.2 mg/dL (8.5-10.5) 03/04/23 18:37 Total Bilirubin 0.3 mg/dL (0.15-1.2) 03/04/23 18:37 AST 19 U/L (0-32) 03/04/23 18:37 ALT 24 U/L (0-33) 03/04/23 18:37 Alkaline Phosphatase 89 U/L (35-105) 03/04/23 18:37 Troponin T Baseline 8 ng/L (0-10) 03/04/23 18:37 Troponin T 120 Minute 8.21 ng/L (0-10) 03/04/23 20:30 Total Protein 6.6 g/dL (6.6-8.7) 03/04/23 18:37 Albumin 4.1 g/dL (3.5-5.2) 03/04/23 18:37 Globulin 2.5 g/dL (1.3-4.6) 03/04/23 18:37 All radiology interpretation(s) finalized by discharge EKG Data EKG 1: I personally reviewed and interpreted this EKG as follows: EKG interpretation date: 03/04/23 EKG interpretation time: 18:53 Prior EKG tracings: not available for review Interpretation: EKG showed ventricular rate 68 bpm, VA interval 187, QRS duration 89, QTc of 412, sinus rhythm, possible right ventricular conduction delay, EKG 2: I personally reviewed and interpreted this EKG as follows: EKG interpretation date: 03/04/23 EKG interpretation time: 20:34 Prior EKG tracings: available for review Interpretation: EKG shows ventricular rate 67 beats minute, VA interval 178, QRS duration 101, QTc of 417, sinus rhythm, no ST-T wave changes Discharge Plan Discharge Patient Disposition: Home Clinical Impression: Acute chest wall pain Condition: Stable Prescriptions: No Action citalopram [Celexa] 40 mg tablet 40 mg PO DAILY bupropion HCl [Wellbutrin XL] 300 mg tablet extended release 24 hr 300 mg PO QAM aspirin 81 mg tablet,delayed release (DR/EC) 81 mg PO DAILY cholecalciferol (vitamin D3) 125 mcg (5,000 unit) capsule 125 mcg PO DAILY B12 Active 1,000 mcg tablet,chewable 1,000 mcg PO DAILY ferrous sulfate 325 mg (65 mg iron) tablet 325 mg PO DAILY omega-3 fatty acids 500 mg capsule 500 mg PO DAILY diazepam 10 mg tablet 10 mg PO TID PRN (Reason: Anxiety) sucralfate 1 gram tablet 1 g PO BID Qty: 120 3RF buspirone 5 mg tablet 5 mg PO TID buspirone 10 mg tablet 10 mg PO TID Belsomra 5 mg tablet PO levothyroxine 175 mcg capsule 175 mcg PO DAILY oxycodone 5 mg tablet 5 mg PO Q4H PRN (Reason: pain) 7 Days Qty: 42 0RF methylprednisolone [Medrol (Shaun)] 4 mg tablets,dose pack See Rx Instructions PO PER PKG DIR Qty: 21 0RF Rx Instructions: PO PER PKG DIR Claritin-D 12 Hour 5-120 mg tablet extended release 12 hr 1 tab PO Q12H PRN (Reason: allergy symptoms) Qty: 60 3RF pantoprazole 20 mg tablet,delayed release (DR/EC) 20 mg PO BID Qty: 180 3RF carisoprodol 350 mg tablet 350 mg PO BID PRN (Reason: muscle pain) Qty: 30 1RF hydrocodone-acetaminophen 5-325 mg tablet 1 tab PO Q6H PRN (Reason: pain) 30 Days Qty: 120 0RF atorvastatin 10 mg tablet 10 mg PO DAILY Qty: 90 3RF latanoprost 0.005 % drops 1 drp ophthalmic (eye) BEDTIME Rx Instructions: to both eyes carvedilol 12.5 mg tablet 12.5 mg PO BID ropinirole 1 mg tablet 1 mg PO QPM losartan-hydrochlorothiazide 100-25 mg tablet 1 tab PO DAILY vitamin B complex Tablet Extended Release 1 tab PO DAILY levothyroxine 150 mcg tablet 150 mcg PO DAILY Discharge Orders: Discharge ED (Routine); Ordered 03/04/23 Ordered By: Kenny Ruby Referrals: Gus Booker MD [Primary Care Provider] - 1 week Patient Instructions: Chest Pain - Chest Wall Activity Restrictions/Additional Instructions: your work-up was negative for cardiac chest pain. With your pain being reproducible by palpation it is suspected that is noncardiac in nature and anterior chest wall pain. Please take Tylenol and/or ibuprofen as needed for this pain. Please follow-up with your family practice physician within the next 7 to 10 days for further evaluation and testing. Coding Level of Care Code ED Superintendent Local for Dennys Mendosa
[2023-03-04 19:26] LABS: Troponin(5th) Baseline 8 ng/L (0-10)
[2023-03-04 19:27] LABS: Alanine Aminotransferase 24 U/L (0-33); Albumin Level 4.1 g/dL (3.5-5.2); Alkaline Phosphatase 89 U/L (35-105); Aspartate Amino Transferase 19 U/L (0-32); Blood Urea Nitrogen 13 mg/dL (8-23); Calcium 9.2 mg/dL (8.5-10.5); Carbon Dioxide 28 mmol/L (22-29); Chloride 105 mmol/L (98-107); Globulin 2.5 g/dL (1.3-4.6); Glomerular Filtration Rate 71.5 mL/min (90-130); Glucose 137 mg/dL (65-115); Osmolality Calculated 298 mOsm/kg (285-295); Sodium 143 mmol/L (136-145); Total Bilirubin 0.3 mg/dL (0.15-1.2); Total Protein 6.6 g/dL (6.6-8.7)
[2023-03-04 19:30] VITALS: BP 148/78; PULSE 71; RESP 18; O2SAT 94
--- NOTE | 2023-03-04 19:56 | PC.NURSE ---
pt up to bathroom at this time
[2023-03-04 19:58] VITALS: BP 147/74; PULSE 62; RESP 18; O2SAT 93
[2023-03-04 20:28] VITALS: BP 153/68; PULSE 69; RESP 18; O2SAT 95
--- NOTE | 2023-03-04 20:34 | ECG_ITS ---
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 Measurements Intervals [place] Rate: 67 P: 56 SD: 178 QRS: 6 QRSD: 101 T: 33 QT: 402 QTc: 425 Interpretive Statements SINUS RHYTHM LOW QRS VOLTAGE IN PRECORDIAL LEADS [QRS DEFLECTION < 1.0 mV IN CHEST LEADS] Compared to ECG 03/04/2023 18:53:41 No significant changes Electronically Signed On 03-05-2023 16:00:09 AGENCY DIRECTOR by Moris Coley M.D. [id number]
--- NOTE | 2023-03-04 20:34 | PC.NURSE ---
lab in room at this time to draw trop.
[2023-03-04 20:59] VITALS: BP 150/62; PULSE 68; RESP 16; O2SAT 96
[2023-03-04 21:00] LABS: Troponin 5 2HR 8.21 ng/L (0-10); Troponin 5 2HR Delta 0.21 ABS# (0-10)
== END 2023-03-04 21:14 | disposition home or self-care (01) ==
PROVIDERS: Emergency Provider Emergency Medicine; PCP Family Medicine
DX: R07.89 Other chest pain (principal); Z79.82 Long term (current) use of aspirin; I10 Essential (primary) hypertension; Z85.850 Personal history of malignant neoplasm of thyroid
CPT/HCPCS: 36415; 71045; 80053; 84484; 85025; 93005; 99285

== ENCOUNTER 2023-03-18 06:00 | Outpatient (RCR) | payer MEDICARE, SELFPAY | END 2023-04-17 23:59 | disposition home or self-care (01) | LOC: SPT 06:00 | PROVIDERS: PCP Family Medicine; Visit Provider Student in an Organized Health Care Education/Training Program | DX: Z98.890 Other specified postprocedural states (principal) | CPT/HCPCS: 97110 ==

== ENCOUNTER → 2023-03-24 14:29 | Outpatient (BNVA) | payer MEDICARE, SELFPAY | PROVIDERS: PCP Family Medicine; Visit Provider Physician Assistant | DX: Z98.890 Other specified postprocedural states (principal) | CPT/HCPCS: 99024; 99213 ==

== ENCOUNTER 2023-04-18 06:00 | Outpatient (RCR) | payer MEDICARE, SELFPAY | END 2023-05-18 23:59 | disposition home or self-care (01) | LOC: SPT 06:00 | PROVIDERS: PCP Family Medicine; Visit Provider Student in an Organized Health Care Education/Training Program | DX: Z98.890 Other specified postprocedural states (principal) | CPT/HCPCS: 97110 ==

== ENCOUNTER 2023-05-19 06:00 | Outpatient (RCR) | payer MEDICARE, SELFPAY | END 2023-06-16 23:59 | disposition home or self-care (01) | LOC: SPT 06:00 | PROVIDERS: PCP Family Medicine; Visit Provider Student in an Organized Health Care Education/Training Program | DX: Z98.890 Other specified postprocedural states (principal) | CPT/HCPCS: 97110 ==

== ENCOUNTER → 2023-05-24 13:01 | Outpatient (BNVA) | payer MEDICARE, SELFPAY | PROVIDERS: PCP Family Medicine; Visit Provider Student in an Organized Health Care Education/Training Program | DX: Z98.890 Other specified postprocedural states (principal) | CPT/HCPCS: 99213 ==

== ENCOUNTER → 2023-08-03 12:54 | Outpatient (BNVA) | payer MEDICARE, SELFPAY | PROVIDERS: PCP Family Medicine; Visit Provider Family Medicine | DX: E78.5 Hyperlipidemia, unspecified (principal); Z13.220 Encounter for screening for lipoid disorders; E03.9 Hypothyroidism, unspecified; E11.9 Type 2 diabetes mellitus without complications; R13.10 Dysphagia, unspecified; Z00.00 Encounter for general adult medical examination without abnormal findings; Z51.81 Encounter for therapeutic drug level monitoring; I10 Essential (primary) hypertension; L60.0 Ingrowing nail; M79.671 Pain in right foot; M79.672 Pain in left foot | CPT/HCPCS: 80061; 83036; 84439; 84443; 93005 ==

== ENCOUNTER → 2023-08-24 13:40 | Outpatient (BNVA) | payer MEDICARE, SELFPAY | PROVIDERS: PCP Family Medicine; Visit Provider Surgery | DX: R13.10 Dysphagia, unspecified (principal); K29.70 Gastritis, unspecified, without bleeding | CPT/HCPCS: 99204; 99214 ==

== ENCOUNTER → 2023-08-29 13:03 | Outpatient (BNVA) | payer MEDICARE, SELFPAY | PROVIDERS: PCP Family Medicine; Visit Provider Podiatrist Foot & Ankle Surgery | DX: M79.671 Pain in right foot (principal); M79.672 Pain in left foot; G62.9 Polyneuropathy, unspecified | CPT/HCPCS: 73630; 99203 ==

== ENCOUNTER 2023-09-04 11:06 | Inpatient (IN) | payer MEDICARE, SELFPAY ==
[2023-09-04] VITALS (7 sets, daily range): BP systolic 122–177; BP diastolic 72–100; PULSE 69–89; RESP 16–18; TEMP 36.7–36.8; O2SAT 94–98; BMI 35.2
--- NOTE | 2023-09-04 11:16 | XRR_ITS ---
PROCEDURE INFORMATION: Exam: XR Chest Exam date and time: 09/04/2023 11:43 AM Age: 68 years old Clinical indication: Screening exam; Other screening; Patient HX: Mhe; Psych eval TECHNIQUE: Imaging protocol: Radiologic exam of the chest. Views: 1 view. COMPARISON: CR XR chest 1V portable [id number] 03/04/2023 7:04 PM FINDINGS: Lungs: Unremarkable. No consolidation or mass. Pleural spaces: Unremarkable. No pleural effusion. No pneumothorax. Heart/Mediastinum: Unremarkable. No cardiomegaly. Bones/joints: Unremarkable. XR/XR chest 1V portable [id number] IMPRESSION: No acute findings.
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
--- NOTE | 2023-09-04 11:37 | ECG_ITS ---
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 Measurements Intervals [place] Rate: 77 P: 48 NC: 181 QRS: -5 QRSD: 96 T: 23 QT: 391 QTc: 445 Interpretive Statements SINUS RHYTHM POSSIBLE RIGHT VENTRICULAR CONDUCTION DELAY [RSR (QR) IN V1/V2] MODERATE VOLTAGE CRITERIA FOR LVH, CONSIDER NORMAL VARIANT [MEETS CRITERIA IN ONE OF: R(aVL), S(V1), R(V5), R(V5/V6)+S(V1)] INFERIOR MYOCARDIAL INFARCTION , PROBABLY OLD [40+ ms Q WAVE AND/OR ST/T ABNORMALITY IN II/aVF] Compared to ECG 03/04/2023 20:34:55 Myocardial infarct finding now present Electronically Signed On 09-04-2023 13:09:46 CDT by Megan Harrison M.D. [id number]
[2023-09-04 11:58] LABS: Basophils % 0.3 %; Eosinophils # 0.2 10^3/uL (0.0-0.8); Eosinophils % 2.2 %; Hematocrit 42.2 % (36-47); Lymphocytes # 2.8 10^3/uL (0.8-4.8); Lymphocytes % 30.3 %; Mean Corpuscular HGB Conc 33.2 g/dL (30-55); Mean Corpuscular Volume 96.3 fl (85-98); Monocytes # 0.5 10^3/uL (0.2-0.9); Monocytes % 5.8 %; Neutrophils # 5.65 10^3/uL (1.8-7.7); Nucleated Red Blood Cells % 0 %; Platelet Count 248 10^3/cmm (157-399); Red Blood Count 4.38 10^6/uL (3.85-5.65); Red Cell Distribution Width 11.9 % (12.1-15.1); White Blood Count 9.27 10^3/uL (3.29-11.43)
[2023-09-04 12:27] LABS: Alanine Aminotransferase 21 U/L (0-33); Albumin Level 4.2 g/dL (3.5-5.2); Alkaline Phosphatase 83 U/L (35-105); Anion Gap 15.4 (5-19); Aspartate Amino Transferase 15 U/L (0-32); Blood Urea Nitrogen 17 mg/dL (8-23); Calcium 9.6 mg/dL (8.5-10.5); Carbon Dioxide 25 mmol/L (22-29); Chloride 103 mmol/L (98-107); Creatinine Clr Calc Pharmacy 74.4822; Globulin 3.4 g/dL (1.3-4.6); Glomerular Filtration Rate 62.5 mL/min (90-130); Glucose 121 mg/dL (65-115); Osmolality Calculated 291 mOsm/kg (285-295); Potassium 4.4 mmol/L (3.5-5.1); Sodium 139 mmol/L (136-145); Thyroid Stimulating Hormone 1.09 uIU/mL (0.27-4.20); Total Bilirubin 0.2 mg/dL (0.15-1.2); Total Protein 7.6 g/dL (6.6-8.7)
[2023-09-04 13:23] LABS: Alcohol Level < 10 mg/dL (0-10); Salicylate < 0.3 mg/dL (3-10)
[2023-09-04] MEDS: losartan 50 mg Tablet 100 MG PO (14:15)
[2023-09-04] MEDS: carvedilol 12.5 mg Tablet PO ×2 (14:16→21:13)
[2023-09-04] MEDS: hydroCHLOROthiazide 25 mg Tablet PO (14:16)
[2023-09-04 15:00] LABS: Amphetamines Screen Urine Negative (Negative); Barbiturates Screen Urine Negative (Negative); Benzodiazepines Screen Urine Negative (Negative); Cocaine Screen Urine Negative (Negative); Opiate Screen Urine Positive (Negative); PCP Screen Urine Negative (Negative); THC Screen Urine Negative (Negative)
[2023-09-04 15:01] LABS: Bilirubin Urine Neg (Negative); Blood Urine Neg (Negative); Glucose Urine UA Norm (Normal); Ketones Urine Negative (Negative); Leukocyte Esterase Urine Negative (Negative); Nitrate Urine Negative (Negative); Protein Urine Neg (Negative); Specific Gravity, Urine 1.015 (1.005-1.030); Urine Appearance Clear (CLEAR); Urine Color Straw (Yellow); Urobilinogen Urine Norm (Negative); pH Urine 5 (5-7)
[2023-09-04 15:13] LABS: Add Urine Culture? No; Bacteria Urine TRACE /hpf; Squamous Epithelial Cell Urine RARE /hpf (0-5)
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
[2023-09-04] MEDS: ropinirole 1 mg Tablet PO (21:12)
[2023-09-04] MEDS: HYDROcodone-acetaminophen 5-325 mg Tablet 1 TAB PO (22:50)
[2023-09-05 06:00] VITALS: BP 135/75; PULSE 80; RESP 16; TEMP 36.8; O2SAT 96
[2023-09-05] MEDS: buPROPion XL (24 HR) 300 mg Tablet PO ×2 (06:08→08:19)
[2023-09-05] MEDS: levothyroxine 175 mcg Tablet PO (06:08)
[2023-09-05] MEDS: pantoprazole DR 40 mg Tablet PO (08:19)
[2023-09-05] MEDS: aspirin 81 mg EC Tablet PO (08:19)
[2023-09-05] MEDS: citalopram 20 mg Tablet 40 MG PO (08:19)
[2023-09-05] MEDS: HYDROcodone-acetaminophen 5-325 mg Tablet 1 TAB PO ×3 (08:23→21:11)
[2023-09-05] MEDS: carvedilol 12.5 mg Tablet PO ×2 (08:52→22:30)
[2023-09-05] MEDS: ATORVASTATIN 10 MG TAB 1 EACH PO (11:10)
[2023-09-05] MEDS: LORATADINE D 1 EACH PO (11:10)
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
[2023-09-05 14:00] VITALS: BP 108/60; PULSE 78; RESP 20; TEMP 36.9; O2SAT 95
--- NOTE | 2023-09-05 14:09 | PC.NURSE ---
This RN overheard the patient talking to her on the phone and repeatedly saying, you can't hear me because you have it recording me. You have your phone recording me again and I don't know why. Patient appears agitated that her did not coal picker the first time she called.
[2023-09-05 20:02] VITALS: BP 145/80; PULSE 78; RESP 18; TEMP 36.3; O2SAT 97
[2023-09-05] MEDS: ropinirole 1 mg Tablet PO (21:12)
[2023-09-06] MEDS: levothyroxine 175 mcg Tablet PO (05:59)
[2023-09-06 06:00] VITALS: BP 132/65; PULSE 81; RESP 17; TEMP 36.7; O2SAT 95
[2023-09-06] MEDS: pantoprazole DR 40 mg Tablet PO (09:02)
[2023-09-06] MEDS: carvedilol 12.5 mg Tablet PO ×2 (09:02→20:51)
[2023-09-06] MEDS: buPROPion XL (24 HR) 300 mg Tablet PO (09:02)
[2023-09-06] MEDS: HYDROcodone-acetaminophen 5-325 mg Tablet 1 TAB PO ×3 (09:03→21:02)
[2023-09-06] MEDS: ATORVASTATIN 10 MG TAB 1 EACH PO (09:03)
[2023-09-06] MEDS: aspirin 81 mg EC Tablet PO (09:03)
[2023-09-06] MEDS: citalopram 20 mg Tablet 40 MG PO (09:03)
[2023-09-06 14:00] VITALS: BP 106/65; PULSE 75; RESP 18; TEMP 36.8; O2SAT 96
--- NOTE | 2023-09-06 18:03 | W.PM.NPUPNS ---
Subjective NPU Subjective: Patient presented today reporting that she is feeling fine from the standpoint of safety but feeling quite upset in regards to her and her being here. We had a very long conversation and she was crying and tearful most of the time speaking about their relationship and her attempt to extract blood from them over these past 45 years with limited success and continued to endorse how much she loves them but she has been contemplating a divorce and had been talking to him about this. She denied any issues that could be addressable by medications and we talked extensively about her getting grief and marital counseling for herself regardless of her 's commitment to those endeavors. She denied any side effects to her medication. Mental Status Exam MSE Comments: This is an obese older white female in hospital scrubs with limited grooming and adequate eye contact. Absent dentition. No abnormal movements except for psychomotor agitation. Cooperative with exam in moderate to extreme distress. Speech was slightly increased rate and normal volume. Mood described as upset and unsure why my did this, affect congruent and extremely tearful and somewhat labile. Thought process mostly organized. Thought content: Patient denied suicidal or homicidal ideation, there were no delusions reported or noted, she denied any auditory or visual hallucinations. Patient reports feeling irritable and angry due to her . She also reports feeling anxious and depressed. She has a history of grief due to multiple losses in her life, including the loss of a child. She denies any suicidal ideation, homicidal ideation, hallucinations, or paranoia. She also reported feelings of helplessness, hopelessness, and worthlessness. Attention and concentration were fair and memory was appearing mostly unreliable but none were formally tested. She is alert and oriented x 3. Insight and judgment appeared limited and impulse control was impaired. Vitals/I&O/Wt Last Vital Signs Temp 98.2 F 09/06/23 14:00 Pulse 75 09/06/23 14:00 Resp 18 09/06/23 14:00 BP 106/65 09/06/23 14:00 Pulse Ox 96 09/06/23 14:00 O2 Del Method Room Air 09/06/23 14:00 Data NPU 09/04/23 11:52 09/04/23 11:52 A&P Assessment and plan (1) Depression: (2) Grief reaction: (3) Paranoia: (4) Homicidal ideation: (5) PTSD (post-traumatic stress disorder): (6) Bereavement: (7) Partner relational problem: Plan Patient is a 68-year-old white female with known history of mental health and and concerns for possible overuse of pain medication Patient presents with a history of depression, anxiety, and grief. She is currently on medication for her mental health issues. She reports feeling irritable and angry due to her medications. She also reports having arguments with her , which have escalated to the point of hospitalization. 1. Continue current medication. Will consider adjustments after speaking with her outpatient psychiatrist 2. Take a look at her filling pattern with her pain medications to see if she is taking or appears to be taking the medications at the full amount dispensed 3. Encourage individual, group and milieu therapies. 4. Continue every 15 minute checks for safety. 5. Evaluate for safety given 96-hour hold. Including concern surrounding gun that she has now reported the presence of to her son. Involuntary Hold Information 96 Hour Hold: 96 Hour Involuntary Admission: Yes 96 Hour Hold Ending Date: 09/09/23 96 Hour Hold Ending Time: 00:01 Attestations NPU Medical Necessity Statement*: Inpatient hospitalization is medically necessary and deemed to ?be ?the clinically appropriate intervention ?at this time.? We will monitor/initiate medications and make changes as indicated.? The patient?s likely length of stay 2-5 days. Coding Level of Care Code Acute Code for [facility] Fwd Diagnoses Depression F32.A Grief reaction F43.21 Paranoia F22 Homicidal ideation R45.850 PTSD (post-traumatic stress disorder) F43.10 Bereavement Z63.4 Partner relational problem Z63.0
[2023-09-06 19:38] VITALS: BP 150/82; PULSE 82; RESP 22; TEMP 36.8; O2SAT 95
[2023-09-06] MEDS: hyDROXYzine 25 mg Capsule 50 MG PO (20:51)
[2023-09-06] MEDS: ropinirole 1 mg Tablet PO (20:51)
[2023-09-06] MEDS: trazodone 50 mg Tablet PO (20:52)
[2023-09-06] MEDS: LATANOPROST 0.005% 1 EACH EYE-BOTH (21:51)
[2023-09-07 06:00] VITALS: BP 124/71; PULSE 73; RESP 18; TEMP 36.3; O2SAT 95
[2023-09-07] MEDS: levothyroxine 175 mcg Tablet PO (06:05)
[2023-09-07] MEDS: buPROPion XL (24 HR) 300 mg Tablet PO (08:54)
[2023-09-07] MEDS: carvedilol 12.5 mg Tablet PO ×2 (08:54→21:55)
[2023-09-07] MEDS: aspirin 81 mg EC Tablet PO (08:54)
[2023-09-07] MEDS: pantoprazole DR 40 mg Tablet PO (08:54)
[2023-09-07] MEDS: citalopram 20 mg Tablet 40 MG PO (08:54)
[2023-09-07] MEDS: HYDROcodone-acetaminophen 5-325 mg Tablet 1 TAB PO ×2 (09:02→16:43)
[2023-09-07] MEDS: LOSARTAN HCTZ 1 EACH PO (09:54)
--- NOTE | 2023-09-07 11:12 | PC.NURSE ---
dURING ASSESSMENT, PATIENT CALM. PATIENT REPORTS PAIN IN RIGHT SHOULDER 8/10. PATIENT DENIES ANXIETY, DEPRESSION, SI, HI, AVH.
--- NOTE | 2023-09-07 12:44 | P.NPUPN_ITS ---
Subjective NPU 2 Subjective: Patient presented today reporting that she was feeling better. Staff reports of better control of her emotions and better emotional regulation and this was noted on direct observation as well. She endorsed doing better overall. Talk to and he was endorsing an openness for her to return home whenever it was deemed appropriate. We once again talked about her managing the pain medication appropriately at home and that that could be contributing to the cognitive differences seen at home versus here with no additional somnolence or spending the day sleeping here. We discussed sleep hygiene and keeping a regular sleep schedule and not letting her sleep balance all over the place. She denied any side effects of the medications that we discussed that there has been a recent increase in her Celexa which is likely now really manifesting. Mental Status Exam 2 MSE Comments: This is an obese older white female in hospital scrubs with limited grooming and adequate eye contact. Absent dentition. No abnormal movements except for mild psychomotor agitation. Cooperative with exam in mild distress. Speech was slightly increased rate and normal volume. Mood described as upset and unsure why my did this, affect congruent and extremely tearful and somewhat labile. Thought process mostly organized. Thought content: Patient denied suicidal or homicidal ideation, there were no delusions reported or noted, she denied any auditory or visual hallucinations. Patient reports feeling irritable and angry due to her . She also reports feeling anxious and depressed. She has a history of grief due to multiple losses in her life, including the loss of a child. She denies any suicidal ideation, homicidal ideation, hallucinations, or paranoia. She also reported feelings of helplessness, hopelessness, and worthlessness. Attention and concentration were fair and memory was appearing mostly unreliable but none were formally tested. She is alert and oriented x 3. Insight and judgment appeared limited and impulse control was limited but improving. Vitals/I&O/Wt Last Vital Signs Temp 97.4 F L 09/07/23 06:00 Pulse 73 09/07/23 06:00 Resp 18 09/07/23 06:00 BP 124/71 09/07/23 06:00 Pulse Ox 95 09/07/23 06:00 O2 Del Method Room Air 09/07/23 06:00 Data NPU 09/04/23 11:52 09/04/23 11:52 A&P Assessment and plan (1) Depression: (2) Grief reaction: (3) Paranoia: (4) Homicidal ideation: (5) PTSD (post-traumatic stress disorder): (6) Bereavement: (7) Partner relational problem: Plan Patient is a 68-year-old white female with known history of mental health and and concerns for possible overuse of pain medication Patient presents with a history of depression, anxiety, and grief. She is currently on medication for her mental health issues. She reports feeling irritable and angry due to her medications. She also reports having arguments with her , which have escalated to the point of hospitalization. 1. Continue current medication. Will consider adjustments after speaking with her outpatient psychiatrist 2. Take a look at her filling pattern with her pain medications to see if she is taking or appears to be taking the medications at the full amount dispensed 3. Encourage individual, group and milieu therapies. 4. Continue every 15 minute checks for safety. 5. Evaluate for safety given 96-hour hold. Including concern surrounding gun that she has now reported the presence of to her son. 6. Identify if patient has any concerns for dementia possibly doing a Ilana exam but impressed upon her the importance of regular sleep hygiene as reports of her having 3 different sleep schedules emerged. Involuntary Hold Information 2 96 Hour Hold: 96 Hour Involuntary Admission: Yes 96 Hour Hold Ending Date: 09/09/23 96 Hour Hold Ending Time: 00:01 Attestations NPU 2 Medical Necessity Statement*: Inpatient hospitalization is medically necessary and deemed to ?be ?the clinically appropriate intervention ?at this time.? We will monitor/initiate medications and make changes as indicated.? The patient?s likely length of stay 1-3 days. Coding Level of Care Code Acute Code for [facility] Fwd Diagnoses Depression F32.A Grief reaction F43.21 Paranoia F22 Homicidal ideation R45.850 PTSD (post-traumatic stress disorder) F43.10 Bereavement Z63.4 Partner relational problem Z63.0
[2023-09-07 14:00] VITALS: BP 112/57; PULSE 73; RESP 14; TEMP 36.5; O2SAT 95
--- NOTE | 2023-09-07 14:52 | PC.NURSE ---
Patient reports anxiety 07/26. Administered Vistaril 50mg PO to patient. Patient resting in bed at this time
[2023-09-07 20:56] VITALS: BP 135/78; PULSE 72; RESP 18; TEMP 36.8; O2SAT 96
[2023-09-07] MEDS: LATANOPROST 0.005% 1 EACH EYE-BOTH (21:41)
[2023-09-07] MEDS: trazodone 50 mg Tablet PO (21:41)
[2023-09-07] MEDS: ropinirole 1 mg Tablet PO (21:41)
[2023-09-07] MEDS: atorvastatin 40 mg Tablet 10 MG PO (21:42)
[2023-09-08] MEDS: ondansetron 4 MG Tablet PO (00:01)
[2023-09-08 06:00] VITALS: BP 128/75; PULSE 69; RESP 16; TEMP 36.6; O2SAT 95
[2023-09-08] MEDS: levothyroxine 175 mcg Tablet PO (06:04)
[2023-09-08] MEDS: aspirin 81 mg EC Tablet PO (08:13)
[2023-09-08] MEDS: citalopram 20 mg Tablet 40 MG PO (08:13)
[2023-09-08] MEDS: pantoprazole DR 40 mg Tablet PO (08:13)
[2023-09-08] MEDS: HYDROcodone-acetaminophen 5-325 mg Tablet 1 TAB PO ×2 (08:13→14:57)
[2023-09-08] MEDS: carvedilol 12.5 mg Tablet PO (08:13)
[2023-09-08] MEDS: buPROPion XL (24 HR) 300 mg Tablet PO (08:13)
[2023-09-08] MEDS: ATORVASTATIN 10 MG TAB 1 EACH PO (08:47)
[2023-09-08] MEDS: LOSARTAN HCTZ 1 EACH PO (08:48)
--- NOTE | 2023-09-08 09:43 | PC.NURSE ---
PT CURRENTLY DENIES SI/HI/AH/VH. PT CURRENTLY DENIES DEPRESSION. PT DENIES ANXIETY HOWEVER, HER AFFECT APPEARS ANXIOUS. PT WAS TEARFUL AFTER SPEAKING WITH STATING THAT HE MADE HER FEEL BAD AND THAT IT MADE HER SAD. THIS NURSE SPOKE WITH PT UNTIL SHE WAS CLAM AND STATED I FEEL BETTER JUST MADE ME SAD AT TTHE TIME. PT WAS COOPERATIVE WITH ASSESSMENT AND MEDICATIONS. PT CURRENT NEEDS ARE MET AT THIS TIME.
--- NOTE | 2023-09-08 09:49 | PC.NURSE ---
GAVE PT PRN HYDROCODONE FOR BILATERAL SHOULDER PAIN WHICH SHE RATED A 7/10 ON A 0-10 SCALE WHERE 0 IS NONE AND 10 IS THE WORST POSSIBLE. UPON REASSESSMENT PT CONTINUED TO COMPLAIN OF BILATERAL SHOULDER PAIN RATING THEM A 5/10 ON THE SAME SCALE PREVIOUS. PT REQUESTED TO TAKE HER PRN SOME WHICH SHE RECEIVED SINCE PAIN CONTINUED TO PERSIST.
--- NOTE | 2023-09-08 15:06 | P.NPUDS_ITS ---
Diagnoses at Discharge Discharge Diagnosis (1) Depression: Status: Acute (2) Grief reaction: Status: Acute (3) Paranoia: Status: Acute (4) Homicidal ideation: Status: Acute (5) PTSD (post-traumatic stress disorder): Status: Acute (6) Bereavement: Status: Acute (7) Partner relational problem: Status: Acute Reason for Visit Reason for Visit: MHE Involuntary Hold Information 96 Hour Hold: 96 Hour Involuntary Admission: Yes 96 Hour Hold Ending Date: 09/09/23 96 Hour Hold Ending Time: 00:01 Mental Status Exam MSE Comments: This is an obese older white female in hospital scrubs with limited grooming and adequate eye contact. Absent dentition. No abnormal movements except for mild psychomotor agitation. Cooperative with exam in mild distress. Speech was slightly increased rate and normal volume. Mood described as upset and unsure why my did this, affect congruent and extremely tearful and somewhat labile. Thought process mostly organized. Thought content: Patient denied suicidal or homicidal ideation, there were no delusions reported or noted, she denied any auditory or visual hallucinations. Patient reports feeling irritable and angry due to her . She also reports feeling anxious and depressed. She has a history of grief due to multiple losses in her life, including the loss of a child. She denies any suicidal ideation, homicidal ideation, hallucinations, or paranoia. She also reported feelings of helplessness, hopelessness, and worthlessness. Attention and concentration were fair and memory was appearing mostly unreliable but none were formally tested. She is alert and oriented x 3. Insight and judgment appeared limited and impulse control was limited but improving. Discharge Data Studies Completed and Pending: Completed Studies During Hospitalization Category Date Time Status XR chest 1V rach ble [id number] Stat Exams 09/04/23 11:16 Completed Radiology Impressions Chest X-Ray 09/04/23 11:16 IMPRESSION: No acute findings. Laboratory Results WBC 9.27 10^3/uL (3.2 9-11.43) 09/04/23 11:52 RBC 4.38 10^6/uL (3.8 5-5.65) 09/04/23 11:52 Hgb 14.00 g/dL (11.27 -16.99) 09/04/23 11:52 Hct 42.2 % (36-47) 09/04/23 11:52 MCV 96.3 fl (85-98) 09/04/23 11:52 MCH 32.0 pg (27-33) 09/04/23 11:52 MCHC 33.2 g/dL (30-55) 09/04/23 11:52 RDW 11.9 % (12.1-15.1 ) L 09/04/23 11:52 Plt Count 248 10^3/cmm (157 -399) 09/04/23 11:52 MPV 9.0 fL (7.4-10.4) 09/04/23 11:52 Neut % (Auto) 61.0 % 09/04/23 11:52 Lymph % (Auto) 30.3 % 09/04/23 11:52 [place] % (Auto) 5.8 % 09/04/23 11:52 Eos % (Auto) 2.2 % 09/04/23 11:52 Baso % (Auto) 0.3 % 09/04/23 11:52 Neut # (Auto) 5.65 10^3/uL (1.8 -7.7) 09/04/23 11:52 Lymph # (Auto) 2.8 10^3/uL (0.8- 4.8) 09/04/23 11:52 [place] # (Auto) 0.5 10^3/uL (0.2- 0.9) 09/04/23 11:52 Eos # (Auto) 0.2 10^3/uL (0.0- 0.8) 09/04/23 11:52 Baso # (Auto) 0.0 10^3/uL (0.0- 0.1) 09/04/23 11:52 Nucleated RBC % (a uto) 0 % 09/04/23 11:52 Nucleated RBCs # 0.0 /100WBC 09/04/23 11:52 Sodium 139 mmol/L (136-1 45) 09/04/23 11:52 Potassium 4.4 mmol/L (3.5-5 .1) 09/04/23 11:52 Chloride 103 mmol/L (98-10 7) 09/04/23 11:52 Carbon Dioxide 25 mmol/L (22-29) 09/04/23 11:52 Anion Gap 15.4 (5-19) 09/04/23 11:52 BUN 17 mg/dL (8-23) 09/04/23 11:52 Creatinine 0.9 mg/dL (0.5-0. 9) 09/04/23 11:52 GFR Calculation 62.5 mL/min (90-1 30) L 09/04/23 11:52 Glucose 121 mg/dL (65-115 ) H 09/04/23 11:52 Calculated Osmolal ity 291 mOsm/kg (285- 295) 09/04/23 11:52 Calcium 9.6 mg/dL (8.5-10 .5) 09/04/23 11:52 Total Bilirubin 0.2 mg/dL (0.15-1 .2) 09/04/23 11:52 AST 15 U/L (0-32) 09/04/23 11:52 ALT 21 U/L (0-33) 09/04/23 11:52 Alkaline Phosphata se 83 U/L (35-105) 09/04/23 11:52 Total Protein 7.6 g/dL (6.6-8.7 ) 09/04/23 11:52 Albumin 4.2 g/dL (3.5-5.2 ) 09/04/23 11:52 Globulin 3.4 g/dL (1.3-4.6 ) 09/04/23 11:52 TSH 1.09 uIU/mL (0.27 -4.20) 09/04/23 11:52 Urine Color Straw (Yellow) 09/04/23 14:36 Urine Appearance Clear (CLEAR) 09/04/23 14:36 Urine pH 5 (5-7) 09/04/23 14:36 Ur Specific Gravit y 1.015 (1.005-1.0 30) 09/04/23 14:36 Urine Protein Neg (Negative) 09/04/23 14:36 Urine Glucose (UA) Norm (Normal) 09/04/23 14:36 Urine Ketones Negative (Negati ve) 09/04/23 14:36 Urine Blood Neg (Negative) 09/04/23 14:36 Urine Nitrate Negative (Negati ve) 09/04/23 14:36 Urine Bilirubin Neg (Negative) 09/04/23 14:36 Urine Urobilinogen Norm mg/dL (Negat art) 09/04/23 14:36 Ur Leukocyte Carlee ase Negative (Negati ve) 09/04/23 14:36 Urine RBC None /hpf (0-2) 09/04/23 14:36 Urine WBC None /hpf (0-5) 09/04/23 14:36 Ur Squamous Epith Cells Rare /hpf (0-5) 09/04/23 14:36 Amorphous Sediment Not Reportable 09/04/23 14:36 Urine Bacteria Trace /hpf (NONE) 09/04/23 14:36 Salicylates < 0.3 mg/dL (3-10 ) L 09/04/23 11:52 Urine Opiates Scre en Positive ng/mL (N egative) H 09/04/23 14:36 Ur Barbiturates Sc reen Negative ng/mL (N egative) 09/04/23 14:36 Ur Phencyclidine S crn Negative ng/mL (N egative) 09/04/23 14:36 Ur Amphetamines Sc reen Negative ng/mL (N egative) 09/04/23 14:36 U Benzodiazepines Scrn Negative ng/mL (N egative) 09/04/23 14:36 Urine Cocaine Scre en Negative ng/mL (N egative) 09/04/23 14:36 U Marijuana (THC) Screen Negative ng/mL (N egative) 09/04/23 14:36 Ethyl Alcohol < 10 mg/dL (0-10) 09/04/23 11:52 Vitals: Last Vital Signs Temp 98 F 09/08/23 06:00 Pulse 69 09/08/23 06:00 Resp 16 09/08/23 06:00 BP 128/75 09/08/23 06:00 Pulse Ox 95 09/08/23 06:00 O2 Del Method Room Air 09/07/23 14:00 Discharge Plan Discharge Patient Disposition: Home Condition: Stable Prescriptions: Continued citalopram [Celexa] 40 mg tablet 40 mg PO DAILY bupropion HCl [Wellbutrin XL] 300 mg tablet extended release 24 hr 300 mg PO QAM aspirin 81 mg tablet,delayed release (DR/EC) 81 mg PO DAILY cholecalciferol (vitamin D3) 125 mcg (5,000 unit) capsule 125 mcg PO DAILY B12 Active 1,000 mcg tablet,chewable 1,000 mcg PO DAILY ferrous sulfate 325 mg (65 mg iron) tablet 325 mg PO DAILY omega-3 fatty acids 500 mg capsule 500 mg PO DAILY diazepam 10 mg tablet 10 mg PO TID PRN (Reason: Anxiety) levothyroxine 175 mcg tablet 175 mcg PO DAILY pantoprazole 20 mg tablet,delayed release (DR/EC) 20 mg PO BID Qty: 180 3RF losartan-hydrochlorothiazide 100-25 mg tablet 1 tab PO DAILY Qty: 90 3RF ondansetron HCl 4 mg tablet 4 mg PO Q8H PRN (Reason: nausea and vomiting) Qty: 30 3RF carisoprodol 350 mg tablet 350 mg PO BID PRN (Reason: muscle pain) Qty: 30 2RF hydrocodone-acetaminophen 5-325 mg tablet 1 tab PO Q6H PRN (Reason: pain) 30 Days Qty: 120 0RF benzonatate 100 mg capsule 100 mg PO TID PRN (Reason: cough) Qty: 30 1RF Claritin-D 12 Hour 5-120 mg tablet extended release 12 hr 1 tab PO Q12H PRN (Reason: allergy symptoms) Qty: 30 0RF latanoprost 0.005 % drops 1 drp ophthalmic (eye) BEDTIME Rx Instructions: both eyes carvedilol 12.5 mg tablet 12.5 mg PO BID ropinirole 1 mg tablet 1 mg PO QPM vitamin B complex Tablet Extended Release 1 tab PO DAILY trazodone 50 mg tablet 50 - 100 mg PO QPM PRN (Reason: Sleep) Xalatan 0.005 % drops 1 drp ophthalmic (eye) BEDTIME Lipitor 10 mg tablet 10 mg PO BEDTIME Discharge Orders: Discharge Order (Routine); Ordered 09/08/23 Ordered By: Kun Zheng Referrals: Manav Jose MD [Other] - 09/09/23 3:00 pm Gus Booker MD [Primary Care Provider] - Discharge Diet: Regular Discharge Activity: Resume usual activity Patient Instructions: Opioid Safety Discharge Attestations NPU Time Spent in Discharge Care*: less than 30 min Specific Discharge Activities: Specific discharge activities: educating patient, discussing with outsole caser/social workers/dc planners, documenting/other paperwork and evaluating patient/reviewing data Coding Level of Care Code Acute Code for [facility] Fwd Diagnoses Depression F32.A Grief reaction F43.21 Paranoia F22 Homicidal ideation R45.850 PTSD (post-traumatic stress disorder) F43.10 Bereavement Z63.4 Partner relational problem Z63.0
--- NOTE | 2023-09-08 15:12 | DCPLANNER ---
IMM completed on 09/08/23 @ 1:42pm. Pt was given a copy of her rights.
[2023-09-08 15:17] VITALS: BP 128/75; PULSE 69; RESP 16; TEMP 36.6; O2SAT 95
== END 2023-09-08 15:45 | disposition home or self-care (01) | DRG 881 ==
LOC: ER 15:27 → NP 15:56
PROVIDERS: Admitting Provider Psychiatry & Neurology Psychiatry; Emergency Provider Emergency Medicine; PCP Family Medicine; Visit Provider Psychiatry & Neurology Psychiatry
DX: F32.A Depression, unspecified (principal); Z63.4 Disappearance and death of family member; F22 Delusional disorders; R45.850 Homicidal ideations; F43.10 Post-traumatic stress disorder, unspecified; Z63.0 Problems in relationship with spouse or partner; E03.9 Hypothyroidism, unspecified; I10 Essential (primary) hypertension; Z79.82 Long term (current) use of aspirin; G89.4 Chronic pain syndrome
CPT/HCPCS: 36415; 71045; 80053; 80306; 80307; 81001; 84443; 85025; 93005; 97150; 97165; 97167; 99285; Q0162

== ENCOUNTER 2023-09-28 13:42 | Outpatient (RCR) | payer MEDICARE, SELFPAY | END 2023-10-16 23:59 | disposition home or self-care (01) | LOC: SPT 13:42 | PROVIDERS: PCP Family Medicine; Visit Provider Family Medicine | DX: M75.42 Impingement syndrome of left shoulder (principal) | CPT/HCPCS: 97110; 97161 ==

== ENCOUNTER → 2023-09-29 13:15 | Outpatient (BNVA) | payer MEDICARE, SELFPAY | PROVIDERS: PCP Family Medicine; Visit Provider Podiatrist Foot & Ankle Surgery | DX: G62.9 Polyneuropathy, unspecified; M79.671 Pain in right foot; M79.672 Pain in left foot | CPT/HCPCS: 99213 ==

== ENCOUNTER → 2023-10-25 13:15 | Outpatient (BNVA) | payer MEDICARE, SELFPAY | PROVIDERS: PCP Family Medicine; Visit Provider Student in an Organized Health Care Education/Training Program | DX: M75.41 Impingement syndrome of right shoulder (principal); Z98.890 Other specified postprocedural states | CPT/HCPCS: 20610; 99213; J3301 ==

== ENCOUNTER → 2023-12-27 10:01 | Outpatient (BNVA) | payer MEDICARE, SELFPAY | PROVIDERS: PCP Family Medicine; Visit Provider Podiatrist Foot & Ankle Surgery | DX: I73.9 Peripheral vascular disease, unspecified (principal); L60.0 Ingrowing nail | CPT/HCPCS: 99213 ==

== ENCOUNTER → 2024-01-19 14:13 | Outpatient (BNVA) | payer MEDICARE, SELFPAY | PROVIDERS: PCP Family Medicine; Visit Provider Internal Medicine Cardiovascular Disease | DX: R07.9 Chest pain, unspecified (principal); R06.02 Shortness of breath; I10 Essential (primary) hypertension; E11.69 Type 2 diabetes mellitus with other specified complication; E78.5 Hyperlipidemia, unspecified; Z79.84 Long term (current) use of oral hypoglycemic drugs | CPT/HCPCS: 99204 ==

== ENCOUNTER 2024-01-27 08:53 | Outpatient (CLI) | payer MEDICARE, SELFPAY ==
--- NOTE | 2024-01-27 09:00 | CTR_ITS ---
PROCEDURE INFORMATION: Exam: CTA Abdominal Aorta and Bilateral Lower Extremities (Run-off) With Contrast Exam date and time: 01/27/2024 9:28 AM Age: 68 years old Clinical indication: Condition or disease; Other: Peripheral arterial disease; Prior surgery; Surgery date: 6+ months; Surgery type: Gb appy; Patient HX: Thyroid cancer 2005 TECHNIQUE: Imaging protocol: Computed tomographic angiography of the of the abdominal aorta, pelvis and bilateral lower extremities with contrast. 3D rendering (Not supervised by radiologist): MIP and/or 3D reconstructed images were created by the technologist. Radiation optimization: All CT scans at this facility use at least one of these dose optimization techniques: automated exposure control; mA and/or kV adjustment per patient size (includes targeted exams where dose is matched to clinical indication); or iterative reconstruction. Contrast material: OMNI 350; Contrast volume: 120 ml; Contrast route: INTRAVENOUS (IV); COMPARISON: CT abdomen pelvis w con* [id number] 04/30/2021 1:41 PM RADIATION DOSE METRICS: Total DLP (mGy-cm): 1728.39 FINDINGS: Aorta: No aortic aneurysm. No aortic dissection. Celiac trunk and mesenteric arteries: No occlusion or significant stenosis. Renal arteries: No occlusion or significant stenosis. Right iliac arteries: No occlusion or significant stenosis. Right femoral/popliteal arteries: No occlusion or significant stenosis. Right infrapopliteal arteries: No occlusion or significant stenosis. Left iliac arteries: No occlusion or significant stenosis. Left femoral/popliteal arteries: No occlusion or significant stenosis. Left infrapopliteal arteries: No occlusion or significant stenosis. Liver: No mass. Gallbladder and biliary ducts: Unremarkable. No calcified stones. No ductal dilation. Pancreas: Unremarkable. No mass. No ductal dilation. Spleen: Normal. No splenomegaly. Adrenal glands: Normal. No mass. Kidneys and ureters: Normal. No mass. Stomach and bowel: Unremarkable. No obstruction. No mucosal thickening. Appendix: No evidence of appendicitis. Urinary bladder: Unremarkable. No mass. Reproductive: Unremarkable as visualized. Intraperitoneal space: Unremarkable. No free air. No significant fluid collection. Lymph nodes: No lymphadenopathy. Bones/joints: No acute fracture. No dislocation. Soft tissues: Unremarkable. CT/CT angio abd aorta runof [id number] IMPRESSION: Unremarkable CTA abdomen, pelvis and lower extremities.
[2024-01-27 09:34] LABS: Blood Urea Nitrogen 16 mg/dL (8-23); Glomerular Filtration Rate 55.3 mL/min (90-130)
[2024-01-27] MEDS: iohexol 350 mg/mL 500 mL Btl (per mL) IV (09:37)
== END 2024-01-27 08:54 | disposition home or self-care (01) ==
LOC: RAD 08:56
PROVIDERS: PCP Family Medicine; Visit Provider Podiatrist Foot & Ankle Surgery
DX: I73.9 Peripheral vascular disease, unspecified (principal); Z90.49 Acquired absence of other specified parts of digestive tract
CPT/HCPCS: 75635; 82565; 84520

== ENCOUNTER 2024-02-16 12:02 | Outpatient (CLI) | payer MEDICARE, SELFPAY ==
--- NOTE | 2024-02-16 12:30 | USCV_ITS ---
Kenia Posadas Age: 68 Gender: F : 1955 Exam Date: 02/16/2024 12:40 Ordering Phys: Belinda Montemayor MD ([email or web address]) Technologist: ASAD Exam Location: [facility] – [place] Indication: POOR CIRCULATION. PRE OP SURG BP: / HR: 61 Rhythm: Sinus Technical Quality: Adequate MEASUREMENTS (Male / Female) Normal Values 2D ECHO LV Diastolic Diameter PLAX 4.0 cm 4.2 - 5.9 / 3.9 - 5.3 cm IVS Diastolic Thickness 1.1 cm 0.6 - 1.0 / 0.6 - 0.9 cm IVS Systolic Thickness 1.5 cm LVPW Diastolic Thickness 1.1 cm 0.6 - 1.0 / 0.6 - 0.9 cm LVPW Systolic Thickness 1.8 cm LVOT Diameter 2.0 cm LV Ejection Fraction 2D Teich 83.8 % LV Ejection Fraction MOD 4C 56.2 % LV Ejection Fraction MOD 2C 62.9 % LV Ejection Fraction 2C AL 67.7 % LA Diameter 2.4 cm RA Systolic Volume 4C AL 18.7 ml RA Systolic Volume 4C MOD 16.1 ml LA Sys Volume AL 29.9 cm cubed LA Sys Volume Index AL 13.4 cm cubed/m squared Aorta at Sinotubular Diameter 2.6 cm IVC Diameter 1.7 cm M-MODE LA Ao Ratio MM 1.1 AV Cusp Separation MM 1.8 cm DOPPLER AV Peak Velocity 143.0 cm/s LVOT Peak Velocity 114.0 cm/s AV Area Cont Eq vti 2.8 cm squared AV Area Cont Eq pk 2.6 cm squared MV Area PHT 2.7 cm squared Mitral E to A Ratio 0.9 TV Peak Velocity 116.0 cm/s TR Peak Velocity 129.0 cm/s TR Peak Gradient 6.7 mmHg TR Mean Velocity 83.0 cm/s TR Mean Gradient 3.2 mmHg TR Velocity Time Integral 26.0 cm TV Peak E Velocity 55.0 cm/s PV Peak Velocity 95.0 cm/s FINDINGS Left Ventricle Normal left ventricular size, systolic function and wall thickness, with no regional wall motion abnormalities. Left ventricular ejection fraction is estimated at 60 %. Grade I/IV diastolic dysfunction (abnormal relaxation filling pattern), normal to mildly elevated filling pressures. Right Ventricle The right ventricle is normal in size and function. Right Atrium The right atrium is normal in size. Left Atrium The left atrium is normal in size. Mitral Valve Structurally normal mitral valve without significant stenosis or prolapse. There is no mitral regurgitation. Aortic Valve Moderate aortic valve calcification. No aortic valve stenosis. Trace aortic valve regurgitation. Tricuspid Valve Structurally normal tricuspid valve without significant stenosis or regurgitation. Pulmonary artery systolic pressure is normal. Pulmonic Valve Structurally normal pulmonic valve without significant stenosis. There is no pulmonic regurgitation. Pericardium Normal pericardium without effusion. Aorta Normal ascending aorta dimension. IVC The inferior vena cava appears normal. CONCLUSIONS Normal left ventricular size, systolic function and wall thickness, with no regional wall motion abnormalities. Left ventricular ejection fraction is estimated at 60 %. Grade I/IV diastolic dysfunction (abnormal relaxation filling pattern), normal to mildly elevated filling pressures. No significant valve abnormalities. There is no pericardial effusion. Right atrial pressure is around 5 mm of mercury. Belinda Montemayor MD (Electronically Signed) Final Date: 16 February 2024 17:56 S
== END 2024-02-16 12:03 | disposition home or self-care (01) ==
LOC: RAD 12:03
PROVIDERS: PCP Family Medicine; Visit Provider Internal Medicine Cardiovascular Disease
DX: I50.30 Unspecified diastolic (congestive) heart failure (principal); I70.0 Atherosclerosis of aorta; R07.9 Chest pain, unspecified; R06.02 Shortness of breath
CPT/HCPCS: 93306

== ENCOUNTER 2024-02-21 06:40 | Outpatient (CLI) | payer MEDICARE, SELFPAY ==
--- NOTE | 2024-02-21 06:51 | ECG_ITS ---
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 Interpretive Statements LEXISCAN SESTAMIBI STRESS TEST Procedure: At the baseline, the blood pressure was 143/77 mmHg with a heart rate of 71 bpm. The electrocardiogram showed normal sinus rhythm, normal axis with normal ST and T's. The Lexiscan was infused over a period of 20 seconds. A total of 0.4 mg of Lexiscan was infused. The stress phase was continued for a total of 5 minutes. Heart rate was at the end of stress phase was 83 bpm and a blood pressure of 145/75 mmHg. The EKG at the peak infusion revealed normal sinus rhythm with no significant ST-T wave changes. Sestamibi was injected 20 seconds after the Lexiscan infusion. Blood pressure at the end of recovery phase was 130/70 mmHg with a heart rate of 79 bpm. Conclusion: 1. Normal EKG response to Lexiscan infusion 2. No Lexiscan induced chest pain or cardiac arrhythmia. 3. Normal blood pressure and heart rate response. 4. Sestamibi/sestamibi perfusion scan pending; see separate report. Electronically Signed On 03-21-2024 19:42:01 EXPERIMENTAL ASSEMBLER by Tony Guerrero M.D. [email or web address]
[2024-02-21 06:52] VITALS: BMI 35.2
--- NOTE | 2024-02-21 06:52 | NMCV_ITS ---
NM jaiden perf SPECT r/s* [id number] Kenia Posadas Age: 68 Gender: F : 1955 Exam Date: 02/21/2024 06:52 Ordering Phys: Belinda Montemayor MD ([email or web address]) Technologist: TAQUERIA Cunningham Exam Location: [facility] Indications: CP STRESS TEST Please see separate stress test report in [facility] for full findings IMAGE PROTOCOL Rest/Stress 1 Lexiscan Day Radiopharmaceutical Dose (mCi) Administration Site Administered by Rest: Tc-99m 9.4 IV Cary Yanes ZIPPER MEASURER Stress:Tc-99m 31.6 IV Cary Yanes, ZIPPER MEASURER Rest: 02/21/2024 60 Discovery 630 Stress: 02/21/2024 30 Discovery 630 0.4mg Lexiscan. Images obtained in supine and prone position. SPECT RESULTS Technical Quality: Good Raw Data Analysis: Normal Image Corrections: No attenuation or motion correction applied Summed Stress Score: 2 Summed Rest Score: 0 Summed Difference Score: 2 PERFUSION FINDINGS SPECT images demonstrate homogeneous tracer distribution throughout the myocardium. FUNCTIONAL RESULTS (calculated via Gated SPECT) Stress Image LV EF (%): 78 Stress EDV (mL):68 TID: 1.19 Stress ESV (mL):15 FUNCTIONAL FINDINGS: There is normal left ventricular systolic function. TID ratio elevated which could be secondary left ventricular hypertrophy. IMPRESSIONS Myocardial perfusion imaging is normal. EKG segment with documented separately Belinda Montemayor MD (Electronically Signed) Final Date: 21 February 2024 19:53 S
[2024-02-21] MEDS: regadenoson 0.4 Mg/5 ml Syringe IVP (08:15)
[2024-02-21 09:45] VITALS: BP 100/63; PULSE 66
== END 2024-02-21 06:41 | disposition home or self-care (01) ==
PROVIDERS: PCP Family Medicine; Visit Provider Internal Medicine Cardiovascular Disease
DX: R07.9 Chest pain, unspecified (principal); R06.02 Shortness of breath
CPT/HCPCS: 36415; 78452; 93017; 96374; A9500; J2785

== ENCOUNTER → 2024-04-03 11:09 | Outpatient (BNVA) | payer MEDICARE, SELFPAY | PROVIDERS: PCP Family Medicine; Visit Provider Family Medicine | DX: Z51.81 Encounter for therapeutic drug level monitoring (principal); E11.9 Type 2 diabetes mellitus without complications; E03.9 Hypothyroidism, unspecified; E53.8 Deficiency of other specified B group vitamins; E55.9 Vitamin D deficiency, unspecified; Z13.220 Encounter for screening for lipoid disorders | CPT/HCPCS: 80053; 80061; 82306; 82607; 83036; 84439; 84443; 85025 ==

== ENCOUNTER → 2024-04-17 09:57 | Outpatient (BNVA) | payer MEDICARE, SELFPAY | PROVIDERS: PCP Family Medicine; Visit Provider Podiatrist Foot & Ankle Surgery | DX: L60.0 Ingrowing nail (principal); I73.9 Peripheral vascular disease, unspecified; Z79.84 Long term (current) use of oral hypoglycemic drugs | CPT/HCPCS: 11750; A6219 ==

== ENCOUNTER → 2024-05-01 10:58 | Outpatient (BNVA) | payer MEDICARE, SELFPAY | PROVIDERS: PCP Family Medicine; Visit Provider Podiatrist Foot & Ankle Surgery | DX: L60.0 Ingrowing nail (principal); I73.9 Peripheral vascular disease, unspecified | CPT/HCPCS: 99213 ==

== ENCOUNTER 2024-05-03 14:36 | Outpatient (CLI) | payer MEDICARE, SELFPAY ==
--- NOTE | 2024-05-03 14:42 | MM_ITS ---
WS: [id number] BILATERAL 3D TOMOSYNTHESIS DIGITAL SCREENING MAMMOGRAPHY WITH CAD CLINICAL INFORMATION: LEFT BREAST LUMP HISTORY: Screening mammogram. No current complaints. COMPARISON: 2022 TECHNIQUE: Bilateral CC and MLO views. FINDINGS: Scattered fibroglandular densities bilaterally. LEFT breast biopsy marker. A few incidental calcifica tions. Palpable marker LEFT breast. Normal underlying parenchymal tissue. Ultrasound of this area is pending. RIGHT breast is unchanged and unremarkable. ULTRASOUND BREAST LEFT TECHNIQUE: Ultrasound left breast focused area of concern. CLINICAL INFORMATION: LEFT BREAST LUMP FINDINGS: Ultrasound LEFT breast in the area of concern 4 o'clock position, 12 cm from the nipple. Normal under lying parenchymal tissue. No cystic or solid lesions. No suspicious findings to target for biopsy. MM/MM diag tomosynthesis [id number] IMPRESSION: DENSITY: There are scattered areas of fibroglandular density. BI-RADS: 2 - Benign. FOLLOW UP: 1 Year Follow-up Recommend return to annual screening mammography.
== END 2024-05-03 14:37 | disposition home or self-care (01) ==
LOC: RAD 14:39
PROVIDERS: PCP Family Medicine; Visit Provider Family Medicine
DX: Z12.31 Encounter for screening mammogram for malignant neoplasm of breast (principal); N63.23 Unspecified lump in the left breast, lower outer quadrant; R92.323 Mammographic fibroglandular density, bilateral breasts; R92.1 Mammographic calcification found on diagnostic imaging of breast
CPT/HCPCS: 76642; 77062; G0279

== ENCOUNTER → 2024-05-11 08:33 | Outpatient (BNVA) | payer MEDICARE, SELFPAY | PROVIDERS: PCP Family Medicine; Visit Provider Nurse Practitioner Family | DX: I10 Essential (primary) hypertension (principal); E11.69 Type 2 diabetes mellitus with other specified complication; E78.5 Hyperlipidemia, unspecified; Z79.84 Long term (current) use of oral hypoglycemic drugs | CPT/HCPCS: 99213 ==

== ENCOUNTER 2024-05-15 14:30 | Outpatient (CLI) | payer MEDICARE, SELFPAY ==
--- NOTE | 2024-05-15 14:34 | XRR_ITS ---
PROCEDURE INFORMATION: Exam: XR Lumbosacral Spine Exam date and time: 05/15/2024 2:48 PM Age: 69 years old Clinical indication: Low back pain; Prior surgery; Surgery date: 6+ months; Surgery type: Gb/appy; PT states she has neuropathy. Pain radiates from the lower back down the right side and down the legs. ; Additional info: Lumbar radiculopathy bilaterally TECHNIQUE: Imaging protocol: Radiologic exam of the lumbosacral spine. Views: 6 or more views. Including flexion and extension views. COMPARISON: CT abdomen pelvis w con* [id number] 04/30/2021 1:41 PM FINDINGS: Bones/joints: Mild degenerative disc disease reflected as a decrease in disc space height and anterior endplate osteophytosis. No spondylolisthesis. No pars defect. No fracture. No motion with flexion or extension. Soft tissues: Unremarkable. XR/XR lumbar spine 6V w f/e [id number] IMPRESSION: Mild degenerative disc disease.
== END 2024-05-15 14:31 | disposition home or self-care (01) ==
PROVIDERS: PCP Family Medicine; Visit Provider Family Medicine
DX: M54.16 Radiculopathy, lumbar region (principal); G62.9 Polyneuropathy, unspecified; G89.29 Other chronic pain; M51.362 Other intervertebral disc degeneration, lumbar region with discogenic back pain and lower extremity pain
CPT/HCPCS: 72114

== ENCOUNTER 2024-06-26 16:22 | Outpatient (CLI) | payer MEDICARE, SELFPAY ==
--- NOTE | 2024-06-26 16:28 | XR_ITS ---
WS: [id number] Right hip, AP and frog-leg views, 06/26/2024 Clinical Data: Right hip Comparison: None. Findings: No fractures or dislocations are seen. The right hip joint is intact. The right hip shows no erosion, narrowing, sclerosis or fragmentation of the right femoral head. The soft tissues are not remarkable. The adjacent pelvis is normal. XR/XR hip RT 2-3V wo/w pel* [id number] Impression: Negative right hip.
== END 2024-06-26 16:23 | disposition home or self-care (01) ==
LOC: RAD 16:26
PROVIDERS: PCP Family Medicine; Visit Provider Family Medicine
DX: M25.551 Pain in right hip (principal)
CPT/HCPCS: 73502

== ENCOUNTER 2024-06-28 07:28 | Outpatient (CLI) | payer MEDICARE, SELFPAY ==
--- NOTE | 2024-06-28 07:15 | MR_ITS ---
WS: [id number] MRI LUMBAR SPINE NONCONTRAST TECHNIQUE: Sagittal T1, T2 and STIR imaging. Axial T1 and T2 imaging. CLINICAL INFORMATION: Lumbar radiculopathy, peripheral neuropathy COMPARISON: None. FINDINGS: Mild lumbar curve. No acute compression. No high-grade central canal stenosis. Mild disc bulging worse at T12-L1, L3-L4, and L4-5. L1-L2: Normal. L2-L3: Minimal annular bulging. L3-L4: Mild annular bulging. Slight effacement of the ventral thecal sac. Mild facet arthropathy. Foramen are patent. L4-L5: Mild annular bulging. Narrowing of the RIGHT subarticular recess. Mild RIGHT foraminal narrowing. Moderate facet arthropathy. L5-S1: Mild annular bulging. Moderate facet arthropathy. Spinal canal and foramen are patent. Visualized pelvic bony structures: Normal. Paravertebral soft tissues: Normal. MR/MR lumbar spine wo con* [id number] IMPRESSION: 1. Annular bulge L4-5 with narrowing of the RIGHT subarticular recess and mild RIGHT foraminal narrowing 2. No high-grade central canal stenosis
== END 2024-06-28 07:29 | disposition home or self-care (01) ==
LOC: RAD 07:30
PROVIDERS: PCP Family Medicine; Visit Provider Family Medicine
DX: M54.16 Radiculopathy, lumbar region (principal); G62.9 Polyneuropathy, unspecified; M51.369 Other intervertebral disc degeneration, lumbar region without mention of lumbar back pain or lower extremity pain; M48.061 Spinal stenosis, lumbar region without neurogenic claudication; M47.896 Other spondylosis, lumbar region
CPT/HCPCS: 72148

== ENCOUNTER → 2024-07-05 15:14 | Outpatient (BNVA) | payer MEDICARE, SELFPAY | PROVIDERS: PCP Family Medicine; Visit Provider Family Medicine | DX: R30.0 Dysuria (principal); N39.0 Urinary tract infection, site not specified | CPT/HCPCS: 81000; 87077; 87086; 87184 ==

== ENCOUNTER → 2024-07-19 15:14 | Outpatient (BNVA) | payer MEDICARE, SELFPAY | PROVIDERS: PCP Family Medicine; Visit Provider Orthopaedic Surgery | DX: Z01.818 Encounter for other preprocedural examination (principal); M54.16 Radiculopathy, lumbar region; M54.9 Dorsalgia, unspecified; M48.062 Spinal stenosis, lumbar region with neurogenic claudication | CPT/HCPCS: 72110; 80053; 81003; 85025; 99204 ==

== ENCOUNTER → 2024-07-24 15:01 | Outpatient (BNVA) | payer MEDICARE, SELFPAY | PROVIDERS: PCP Family Medicine; Visit Provider Physician Assistant | DX: M75.41 Impingement syndrome of right shoulder (principal); Z98.890 Other specified postprocedural states | CPT/HCPCS: 20610; 99213; J3301; J9999 ==

== ENCOUNTER 2024-07-25 23:03 | Emergency (ER) | payer MEDICARE, OTHER, SELFPAY ==
[2024-07-25] VITALS (9 sets, daily range): BP systolic 117; BP diastolic 76; PULSE 70–76; RESP 16–25; TEMP 36.8; O2SAT 97; BMI 35.0
--- NOTE | 2024-07-25 23:09 | XRR_ITS ---
PROCEDURE INFORMATION: Exam: XR Chest Exam date and time: 07/25/2024 11:14 PM Age: 69 years old Clinical indication: Chest wall pain; Additional info: Chest pain TECHNIQUE: Imaging protocol: Radiologic exam of the chest. Views: 1 view. COMPARISON: CR XR chest 1V portable [id number] 09/04/2023 11:43 AM FINDINGS: Lungs: Unremarkable. No consolidation. Pleural spaces: Unremarkable. No pleural effusion. No pneumothorax. Heart/Mediastinum: Unremarkable. No cardiomegaly. Bones/joints: Unremarkable. XR/XR chest 1V portable [id number] IMPRESSION: No acute findings.
--- NOTE | 2024-07-25 23:10 | ECG_ITS ---
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
--- NOTE | 2024-07-25 23:18 | W.ED.CHESTPA ---
HPI - Chest Pain General: Chief Complaint: Chest Pain Stated Complaint: Chest Pain, SOB Time Seen by Provider: 07/25/24 23:08 History of Present Illness: Patient presents to the ER with complaints of chest pain upon further discussing with the patient this more right scapular pain that rotates around her chest wall to her front of her right side of her chest. Patient gets short of breath and nauseated when this happens. He does not ever go to the left side. Per the patient she has no cardiac history. She has been checked it several times for chest pain and she says it always ends up being muscle spasms. EMS did administer 1 nitro and 4 mg of Zofran no relief. Patient does take a 81 mg aspirin daily. EMS did not give her 324 mg of chewable aspirin because patient does not have any teeth in. Related Data Home Medications ?Medication ?Instructions ?Recorded ?Confirmed aspirin 81 mg tablet,delayed 81 mg PO DAILY 01/02/20 07/19/24 release cholecalciferol (vitamin D3) 125 125 mcg PO DAILY 01/02/20 07/19/24 mcg (5,000 unit) capsule citalopram 40 mg tablet (Celexa) 40 mg PO DAILY 01/02/20 07/19/24 latanoprost 0.005 % eye drops 1 drp ophthalmic (eye) BEDTIME 03/03/20 07/19/24 ferrous sulfate 325 mg (65 mg 325 mg PO DAILY 07/14/21 07/19/24 iron) tablet omega-3 fatty acids 500 mg capsule 500 mg PO DAILY 07/14/21 07/19/24 vitamin B complex 1 tab PO DAILY 07/15/21 07/19/24 levothyroxine 175 mcg tablet 175 mcg PO DAILY 03/30/23 07/19/24 trazodone 50 mg tablet 50 - 100 mg PO QPM PRN Sleep 09/04/23 07/19/24 latanoprost 0.005 % eye drops 1 drp ophthalmic (eye) BEDTIME 09/06/23 07/19/24 (Xalatan) mecobalamin (vitamin B12) 1,000 500 mcg PO DAILY 04/12/24 07/19/24 mcg chewable tablet (B12 Active) brexpiprazole 0.25 mg tablet 0.25 mg PO DAILY 04/26/24 07/19/24 (Rexulti) Previous Rx's ?Medication ?Instructions ?Recorded ondansetron HCl 4 mg tablet 4 mg PO Q8H PRN nausea and 05/30/23 vomiting #30 tabs benzonatate 100 mg capsule 100 mg PO TID PRN cough #30 caps 08/29/23 diclofenac sodium 1 % topical gel 2 g topical QID #100 grams 10/11/23 (Voltaren Arthritis Pain) pantoprazole 20 mg tablet,delayed 20 mg PO BID #180 tabs 01/03/24 release isosorbide mononitrate 30 mg 30 mg PO DAILY #30 tabs 01/19/24 tablet,extended release 24 hr nitroglycerin 0.4 mg sublingual 0.4 mg sublingual Q5M PRN chest 01/19/24 tablet pain #20 tabs carvedilol 12.5 mg tablet See Rx Instructions .Route 03/05/24 .COMPLEX #180 tabs ropinirole 1 mg tablet See Rx Instructions .Route 03/05/24 .COMPLEX #90 tabs hydroxyzine HCl 25 mg tablet 25 mg PO TID PRN itching #90 tabs 03/08/24 oxcarbazepine 150 mg tablet 300 mg (2 x 150 mg) PO BID #60 tabs 03/08/24 loratadine 5 mg-pseudoephedrine ER 1 tab PO Q12H PRN allergy symptoms 03/22/24 120 mg tablet,extended #30 tabs release,12hr (Claritin-D 12 Hour) triamcinolone acetonide 0.1 % 1 applic topical DAILY #30 grams 05/11/24 topical cream losartan 100 See Rx Instructions .Route 06/01/24 mg-hydrochlorothiazide 25 mg tablet .COMPLEX #90 tabs metformin 500 mg tablet See Rx Instructions .Route 06/01/24 .COMPLEX #90 tabs Manual wheelchair #1 ea 06/04/24 carisoprodol 350 mg tablet 350 mg PO BID PRN muscle pain #30 07/06/24 tabs ciprofloxacin HCl 500 mg tablet 500 mg PO BID 7 days #14 tabs 07/09/24 hydrocodone 5 mg-acetaminophen 325 1 tab PO Q6H PRN pain 30 days #120 07/19/24 mg tablet tabs sucralfate 1 gram tablet 1 g PO BID #120 tabs 07/23/24 Allergies Allergy/AdvReac Type Severity Reaction Status Date / Time clarithromycin (From Biaxin) Allergy Severe swells Verified 07/19/24 15:23 metoclopramide (From Reglan) Allergy Unknown UNKNOWN Verified 07/19/24 15:23 atorvastatin Allergy ADR-Muscle Verified 07/19/24 15:23 Pain metronidazole (From Flagyl) Allergy ADR-Abdominal Verified 07/19/24 15:23 Pain Penicillins Allergy Unknown Verified 07/19/24 15:23 tetracycline Allergy Unknown Verified 07/19/24 15:23 Review of Systems General: Reports: 10 or more systems reviewed and unremarkable except in HPI and below PFSH ED PFSH: Medical History Hyperlipidemia associated with type 2 diabetes mellitus Essential hypertension Subacromial impingement of left shoulder Tear of biceps tendon Acromioclavicular joint arthritis COVID-19 Sleep apnea Hypertension Thyroid cancer Surgical History H/O shoulder surgery Left - Dec 2022 History of eye surgery History of excision of mass (07/16/21) Status post colonoscopy History of esophagogastroduodenoscopy History of liver biopsy S/P angiogram of extremity H/O neck surgery Repeat cervical spine surgery on 03/15/22 H/O: hysterectomy H/O carpal tunnel repair H/O knee surgery History of appendectomy Hx laparoscopic cholecystectomy Family History Other Cancer Social History Smoking and tobacco/nicotine status: never used tobacco/nicotine Alcohol intake: never Substance/Drug Use: never Physical Exam Const: COMMON NORMALS: no acute distress, average body habitus, patient oriented x3, no limitations, healthy appearing, alert and well nourished HENMT: COMMON NORMALS: normocephalic, atraumatic, hearing grossly normal bilaterally, external ears normal, Normal external nose present, moist oral mucous membranes and oropharynx normal HEAD & SCALP: normocephalic and atraumatic NOSE: Normal external nose present EXTERNAL EAR: Yes external ears normal Eye: COMMON NORMALS: Equal, round and reactive pupils present, EOMs intact bilaterally, conjunctivae normal and no scleral icterus CONJUNCTIVA: Yes conjunctivae normal PUPIL: Yes Equal, round and reactive pupils present Neck/C-Spine: COMMON NORMALS: full ROM, no lymphadenopathy, supple, no meningeal signs and no JVD Chest: COMMONS NORMALS: normal inspection of the chest and normal palpation of entire chest wall Resp: COMMON NORMALS: normal respiratory effort, No retractions, No use of accessory muscles and clear to auscultation bilaterally AUSCULTATION: clear to auscultation bilaterally Cardio: COMMON NORMALS: no JVD, regular rate, regular rhythm, S1 normal heart sound present, S2 normal heart sound present, No gallops present (Cardio), No clicks present (Cardio), No murmurs present (Cardio) and No rub (Cardio) RATE: regular rate RHYTHM: regular rhythm HEART SOUNDS: S1 normal heart sound present and S2 normal heart sound present GI: COMMON NORMALS: Normal to inspection, nondistended, normoactive bowel sounds present, Soft to palpation, non-tender, No hepatosplenomegaly present and no masses PALPATION: Yes Soft to palpation and Yes No hepatosplenomegaly present Neuro: COMMON NORMALS: patient oriented x3 SENSORIUM/ORIENTATION: Yes alert MENINGEAL SIGNS: Yes no meningeal signs Course Vital Signs: Vital signs: Vital Signs Temperature 98.2 F 07/25/24 23:06 Pulse Rate 66 07/26/24 01:30 Respiratory Rate 15 07/26/24 01:30 Blood Pressure 153/69 07/26/24 01:30 Pulse Oximetry 97 07/26/24 01:30 Oxygen Delivery Me thod Room Air 07/25/24 23:06 MDM - Chest Pain Medical Decision Making Lab work was obtained included CBC CMP serial troponins, serial EKGs, chest x-ray, all of which was essentially benign other than sodium 127, patient's previous was 123, potassium 5.3, initial troponin 9, 2-hour troponin 8.15, patient remained pain-free during her entire stay. Patient be discharged home. Medical Records I reviewed the patient's medical records. Lab Data I reviewed the patient's lab results. 07/25/24 22:40 07/25/24 22:40 Radiology Impressions Chest X-Ray 07/25/24 23:09 IMPRESSION: No acute findings. Laboratory Results WBC 10.06 10^3/uL (3.29-11.43) 07/25/24 22:40 RBC 3.81 10^6/uL (3.85-5.65) L 07/25/24 22:40 Hgb 11.70 g/dL (11.27-16.99) 07/25/24 22:40 Hct 34.7 % (36-47) L 07/25/24 22:40 MCV 91.1 fl (85-98) 07/25/24 22:40 MCH 30.7 pg (27-33) 07/25/24 22: MCHC 33.7 g/dL (30-55) 07/25/24 22:40 RDW 12.1 % (12.1-15.1) 07/25/24:40 Plt Count 304 10^3/cmm (157-399) 07/25/24:40 MPV 8.0 fL (7.4-10.4) 07/25/24 22:40 Neut % (Auto) 69.8 % 07/25/24 22:40 Lymph % (Auto) 22.8 % 07/25/24 22:40 [place] % (Auto) 5.5 % 07/25/24 22:40 Eos % (Auto) 0.8 % 07/25/24:40 Baso % (Auto) 0.2 % 07/25/24:40 Neut # (Auto) 7.03 10^3/uL (1.8-7.7) 07/25/24 22:40 Lymph # (Auto) 2.3 10^3/uL (0.8-4.8) 07/25/24 22:40 [place] # (Auto) 0.6 10^3/uL (0.2-0.9) 07/25/24:40 Eos # (Auto) 0.1 10^3/uL (0.0-0.8) 07/25/24:40 Baso # (Auto) 0.0 10^3/uL (0.0-0.1) 07/25/24:40 Nucleated RBC % (auto) 0 % 07/25/24: Nucleated RBCs # 0.0 /100WBC 07/25/24 22:40 PT 13.10 SECONDS (12.1-14.9) 07/25/24:40 INR 0.93 (0.8-1.2) 07/25/24 22:40 Sodium 127 mmol/L (136-145) L 07/25/24 22:40 Potassium 5.3 mmol/L (3.5-5.1) H 07/25/24 22:40 Chloride 90 mmol/L (98-107) L 07/25/24 22:40 Carbon Dioxide 25 mmol/L (22-29) 07/25/24 22:40 Anion Gap 17.3 (5-19) 07/25/24 22:40 BUN 21 mg/dL (8-23) 07/25/24 22:40 Creatinine 0.8 mg/dL (0.5-0.9) 07/25/24 22:40 GFR Calculation 71.3 mL/min (90-130) L 07/25/24 22:40 Glucose 120 mg/dL (65-115) H 07/25/24 22:40 Calculated Osmolality 268 mOsm/kg (285-295) L 07/25/24 22:40 Calcium 9.7 mg/dL (8.5-10.5) 07/25/24 22:40 Total Bilirubin 0.2 mg/dL (0.15-1.2) 07/25/24 22:40 AST 13 U/L (0-32) 07/25/24 22:40 ALT 16 U/L (0-33) 07/25/24 22:40 Alkaline Phosphatase 86 U/L (35-105) 07/25/24 22:40 Troponin T Baseline 9 ng/L (0-10) 07/25/24 22:40 Troponin T 120 Minute 8.15 ng/L (0-10) 07/26/24 00:21 Delta Troponin T -0.85 ABS# (0-10) L 07/26/24 00:21 Total Protein 7.0 g/dL (6.6-8.7) 07/25/24 22:40 Albumin 4.5 g/dL (3.5-5.2) 07/25/24 22:40 Globulin 2.5 g/dL (1.3-4.6) 07/25/24 22:40 All radiology interpretation(s) finalized by discharge Discharge Plan Discharge Patient Disposition: Home Clinical Impression: Chest pain, Acute hyponatremia, Acute hyperkalemia Condition: Stable Prescriptions: No Action citalopram [Celexa] 40 mg tablet 40 mg PO DAILY aspirin 81 mg tablet,delayed release (DR/EC) 81 mg PO DAILY cholecalciferol (vitamin D3) 125 mcg (5,000 unit) capsule 125 mcg PO DAILY ferrous sulfate 325 mg (65 mg iron) tablet 325 mg PO DAILY omega-3 fatty acids 500 mg capsule 500 mg PO DAILY diclofenac sodium [Voltaren Arthritis Pain] 1 % gel 2 g topical QID Qty: 100 2RF Rx Instructions: apply to single elbow, wrist or hand; for hand includes palm/fingers/back of hand Claritin-D 12 Hour 5-120 mg tablet extended release 12 hr 1 tab PO Q12H PRN (Reason: allergy symptoms) Qty: 30 3RF Rexulti 0.25 mg tablet 0.25 mg PO DAILY levothyroxine 175 mcg tablet 175 mcg PO DAILY nitroglycerin 0.4 mg tablet, sublingual 0.4 mg sublingual Q5M PRN (Reason: chest pain) Qty: 20 3RF Rx Instructions: do not exceed 3 doses per episode isosorbide mononitrate 30 mg tablet extended release 24 hr 30 mg PO DAILY Qty: 30 3RF ondansetron HCl 4 mg tablet 4 mg PO Q8H PRN (Reason: nausea and vomiting) Qty: 30 3RF benzonatate 100 mg capsule 100 mg PO TID PRN (Reason: cough) Qty: 30 1RF pantoprazole 20 mg tablet,delayed release (DR/EC) 20 mg PO BID Qty: 180 3RF ropinirole 1 mg tablet See Rx Instructions .ROUTE .COMPLEX Qty: 90 1RF Dose Instruction: TAKE 1 TABLET BY MOUTH EVERY EVENING NEEDED Rx Instructions: TAKE 1 TABLET BY MOUTH EVERY EVENING NEEDED carvedilol 12.5 mg tablet See Rx Instructions .ROUTE .COMPLEX Qty: 180 3RF Dose Instruction: TAKE 1 TABLET BY MOUTH TWICE DAILY Rx Instructions: TAKE 1 TABLET BY MOUTH TWICE DAILY hydroxyzine HCl 25 mg tablet 25 mg PO TID PRN (Reason: itching) Qty: 90 0RF oxcarbazepine 150 mg tablet 300 mg PO BID Qty: 60 6RF B12 Active 1,000 mcg tablet,chewable 500 mcg PO DAILY triamcinolone acetonide 0.1 % cream 1 applic topical DAILY Qty: 30 6RF losartan-hydrochlorothiazide 100-25 mg tablet See Rx Instructions .ROUTE .COMPLEX Qty: 90 3RF Dose Instruction: TAKE 1 TABLET BY MOUTH EVERY DAY Rx Instructions: TAKE 1 TABLET BY MOUTH EVERY DAY metformin 500 mg tablet See Rx Instructions .ROUTE .COMPLEX Qty: 90 3RF Dose Instruction: TAKE 1 TABLET BY MOUTH EVERY DAY Rx Instructions: TAKE 1 TABLET BY MOUTH EVERY DAY (DME) Manual wheelchair See Rx Instructions .Route .MEDSUPPLY Qty: 1 0RF Rx Instructions: As directed carisoprodol 350 mg tablet 350 mg PO BID PRN (Reason: muscle pain) Qty: 30 0RF ciprofloxacin HCl 500 mg tablet 500 mg PO BID 7 Days Qty: 14 0RF hydrocodone-acetaminophen 5-325 mg tablet 1 tab PO Q6H PRN (Reason: pain) 30 Days Qty: 120 0RF sucralfate 1 gram tablet 1 g PO BID Qty: 120 3RF latanoprost 0.005 % drops 1 drp ophthalmic (eye) BEDTIME Rx Instructions: both eyes vitamin B complex Tablet Extended Release 1 tab PO DAILY trazodone 50 mg tablet 50 - 100 mg PO QPM PRN (Reason: Sleep) Xalatan 0.005 % drops 1 drp ophthalmic (eye) BEDTIME Discharge Orders: Discharge ED (Routine); Ordered 07/26/24 Ordered By: Kenny Ruyb Referrals: Gus Booker MD [Primary Care Provider] - 1 week Patient Instructions: Chest Pain (ED), Hyponatremia (ED), Hyperkalemia (ED) Activity Restrictions/Additional Instructions: Your evaluation ER did not show any acute causes of your chest pain. Is felt to be noncardiac in nature. Your lab work did show your sodium was a little bit low as well as your potassium being a little bit high. Please follow-up with your family practice physician in the next 7 to 10 days for recheck of these and further evaluation treatment. Print Language: Nepali Coding Level of Care Code ED [place]t [place]ime Drawer for Dennys Mendosa
[2024-07-25 23:23] LABS: Basophils % 0.2 %; Eosinophils # 0.1 10^3/uL (0.0-0.8); Eosinophils % 0.8 %; Hematocrit 34.7 % (36-47); Lymphocytes # 2.3 10^3/uL (0.8-4.8); Lymphocytes % 22.8 %; Mean Corpuscular HGB Conc 33.7 g/dL (30-55); Mean Corpuscular Hemoglobin 30.7 pg (27-33); Mean Corpuscular Volume 91.1 fl (85-98); Monocytes # 0.6 10^3/uL (0.2-0.9); Monocytes % 5.5 %; Neutrophils # 7.03 10^3/uL (1.8-7.7); Neutrophils % 69.8 %; Nucleated Red Blood Cells % 0 %; Platelet Count 304 10^3/cmm (157-399); Red Blood Count 3.81 10^6/uL (3.85-5.65); Red Cell Distribution Width 12.1 % (12.1-15.1); White Blood Count 10.06 10^3/uL (3.29-11.43)
[2024-07-25 23:34] LABS: INR 0.93 (0.8-1.2)
[2024-07-25 23:40] LABS: Troponin(5th) Baseline 9 ng/L (0-10)
[2024-07-25 23:45] LABS: Alanine Aminotransferase 16 U/L (0-33); Albumin Level 4.5 g/dL (3.5-5.2); Alkaline Phosphatase 86 U/L (35-105); Anion Gap 17.3 (5-19); Aspartate Amino Transferase 13 U/L (0-32); Blood Urea Nitrogen 21 mg/dL (8-23); Calcium 9.7 mg/dL (8.5-10.5); Carbon Dioxide 25 mmol/L (22-29); Chloride 90 mmol/L (98-107); Creatinine Clr Calc Pharmacy 82.4521; Globulin 2.5 g/dL (1.3-4.6); Glomerular Filtration Rate 71.3 mL/min (90-130); Glucose 120 mg/dL (65-115); Osmolality Calculated 268 mOsm/kg (285-295); Potassium 5.3 mmol/L (3.5-5.1); Sodium 127 mmol/L (136-145); Total Bilirubin 0.2 mg/dL (0.15-1.2)
[2024-07-26] VITALS (16 sets, daily range): BP systolic 117–153; BP diastolic 69–76; PULSE 64–69; RESP 13–22; O2SAT 96–99
[2024-07-26 00:44] LABS: Troponin 5 2HR 8.15 ng/L (0-10)
[2024-07-26 01:02] LABS: Troponin 5 2HR Delta -0.85 ABS# (0-10)
--- NOTE | 2024-07-26 01:08 | ECG_ITS ---
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 Measurements Intervals [place] Rate: 65 P: 77 NC: 191 QRS: 33 QRSD: 96 T: 133 QT: 403 QTc: 422 Interpretive Statements SINUS RHYTHM LOW QRS VOLTAGE IN PRECORDIAL LEADS [QRS DEFLECTION < 1.0 mV IN CHEST LEADS] POSSIBLE RIGHT VENTRICULAR CONDUCTION DELAY [RSR (QR) IN V1/V2] MODERATE ST DEPRESSION [0.05+ mV ST DEPRESSION] ABNORMAL QRS-T ANGLE [QRS-T AXIS DIFFERENCE > 60] Compared to ECG 07/25/2024 23:10:20 ST (T wave) deviation now present Electronically Signed On 07-28-2024 13:30:53 CDT by Moris Coley M.D. [email or web address]
== END 2024-07-26 01:59 | disposition home or self-care (01) ==
PROVIDERS: Emergency Provider Emergency Medicine; PCP Family Medicine
DX: R07.9 Chest pain, unspecified (principal); E87.1 Hypo-osmolality and hyponatremia; E87.5 Hyperkalemia; Z79.84 Long term (current) use of oral hypoglycemic drugs; E78.5 Hyperlipidemia, unspecified; I10 Essential (primary) hypertension; Z85.850 Personal history of malignant neoplasm of thyroid; E11.9 Type 2 diabetes mellitus without complications; Z79.82 Long term (current) use of aspirin
CPT/HCPCS: 36415; 71045; 80053; 84484; 85025; 85610; 93005; 99285

== ENCOUNTER → 2024-08-13 15:26 | Outpatient (BNVA) | payer MEDICARE, OTHER, SELFPAY | PROVIDERS: PCP Family Medicine; Visit Provider Family Medicine | DX: Z00.00 Encounter for general adult medical examination without abnormal findings (principal); Z13.6 Encounter for screening for cardiovascular disorders; Z51.81 Encounter for therapeutic drug level monitoring; E11.69 Type 2 diabetes mellitus with other specified complication; E78.5 Hyperlipidemia, unspecified | CPT/HCPCS: 80053; 80061; 83036; 85025 ==

== ENCOUNTER → 2024-08-14 10:53 | Outpatient (BNVA) | payer MEDICARE, OTHER, SELFPAY | PROVIDERS: PCP Family Medicine; Visit Provider Family Medicine | DX: Z00.00 Encounter for general adult medical examination without abnormal findings (principal); E11.9 Type 2 diabetes mellitus without complications | CPT/HCPCS: 82043 ==

== ENCOUNTER → 2024-08-21 09:00 | Outpatient (BNVA) | payer MEDICARE, OTHER, SELFPAY | PROVIDERS: PCP Family Medicine; Visit Provider Family Medicine | DX: Z01.818 Encounter for other preprocedural examination (principal) | CPT/HCPCS: 80048 ==

== ENCOUNTER 2024-08-24 05:56 | Day surgery (SDC) | payer MEDICARE, OTHER, SELFPAY ==
[2024-08-24] VITALS (11 sets, daily range): BP systolic 112–174; BP diastolic 51–101; PULSE 71–77; RESP 15–21; TEMP 36.4–36.5; O2SAT 93–100; BMI 35.5
--- NOTE | 2024-08-24 06:06 | P.ANESASSM_ITS ---
Pre-Anesthetic Assessment Height/Weight: Height 1.7 m Operation Date: 08/24/24 07:00 Proposed Procedures p Lumbar Spine Decompression(Not Applicable) - Camilo Ansari, DO Social No alcohol and No tobacco Exam alert, oriented x 3, clear to auscultation bilaterally and regular rate & rhythm Airway Submandibular: within normal limits Cervical ROM: within normal limits Mallampati: Class II CV/HEM Hypertension and Peripheral Vascular Disease Metabolic Thyroid Disease (hx of thyroid cancer) [facility] [place] Osteoarthritis/DJD Neuropsych Anxiety and Depression PTSD Anesthetic Plan ASA status: 3 Anesthesia: General Medications/Allergies Home Medications ?Medication ?Instructions ?Recorded ?Confirmed ?Last Taken ?Type aspirin 81 mg tablet,delayed 81 mg PO DAILY 01/02/20 0 08/23/24 08/23/24 10:30 History release cholecalciferol (vitamin D3) 125 125 mcg PO DAILY 12/1708/23/24 08/23/24 10:30 History mcg (5,000 unit) capsule citalopram 40 mg tablet (Celexa) 40 mg PO DAILY 08/23/24 08/23/24 10:30 History ferrous sulfate 325 mg (65 mg 325 mg PO DAILY 07/14/21 08/23/24 08/23/24 10:30 History iron) tablet omega-3 fatty acids 500 mg capsule 500 mg PO DAILY 08/23/24 08/22/24 10:00 History vitamin B complex 1 tab PO DAILY 07/15/21 05/12/1008/22/24 10:00 History levothyroxine 175 mcg tablet 175 mcg PO DAILY 03/30/23 08/23/24 08/23/24 10:30 History latanoprost 0.005 % eye drops 1 drp ophthalmic (eye) B EDTIME 09/06/23 08/21/24 08/22/24 10:00 History (Xalatan) pantoprazole 20 mg tablet,delayed 20 mg PO BID #180 ta bs 01/03/24 08/23/24 08/22/24 10:00 Rx release nitroglycerin 0.4 mg sublingual 0.4 mg sublingual Q5M PRN chest 01/19/24 08/23/24 08/22/24 10:00 Rx tablet pain #20 tabs carvedilol 12.5 mg tablet See Rx Instructions .Route 1 05/05/23 08/23/24 08/23/24 10:30 Rx .COMPLEX #180 tabs ropinirole 1 mg tablet See Rx Instructions .Route 1 05/05/23 08/23/24 08/22/24 10:00 Rx .COMPLEX #90 tabs loratadine 5 mg-pseudoephedrine ER 1 tab PO Q12H PRN a llergy symptoms 03/22/24 08/23/24 08/23/24 10:30 Rx 120 mg tablet,extended #30 tabs release,12hr (Claritin-D 12 Hour) mecobalamin (vitamin B12) 1,000 500 mcg PO DAILY 04/1208/23/24 08/23/24 10:30 History mcg chewable tablet (B12 Active) triamcinolone acetonide 0.1 % 1 applic topical DAILY # 30 grams 05/11/24 08/21/24 08/22/24 10:00 Rx topical cream losartan 100 See Rx Instructions .Route 0 06/01/24 08/23/24 08/23/24 10:30 Rx mg-hydrochlorothiazide 25 mg tablet .COMPLEX #90 tabs metformin 500 mg tablet See Rx Instructions .Route 0 06/01/24 08/23/24 08/23/24 10:30 Rx .COMPLEX #90 tabs Manual wheelchair #1 ea 06/04/24 08/21/24 Unkn own Rx sucralfate 1 gram tablet 1 g PO BID #120 tabs 5 08/21/24 08/22/24 10:00 Rx ondansetron HCl 4 mg tablet 4 mg PO Q8H PRN nausea and 08/04/24 08/23/24 08/22/24 10:00 Rx vomiting #30 tabs carisoprodol 350 mg tablet 350 mg PO BID PRN muscle pa in #30 08/07/24 08/23/24 08/23/24 10:30 Rx tabs hydrocodone 5 mg-acetaminophen 325 1 tab PO Q6H PRN pa in 30 days #120 08/16/24 08/23/24 08/23/24 10:30 Rx mg tablet tabs bupropion HCl 150 mg 24 hr tablet, mg PO 08/23/24 05/12/1008/23/24 10:30 History extended release Allergies Allergy/AdvReac Type Severity Reaction Status Date / Time clarithromycin (From Biaxin) Allergy Severe swells Verified 08/23/24 10:56 metoclopramide (From Reglan) Allergy Unknown UNKNOWN Verified 08/23/24 10:56 atorvastatin Allergy ADR-Muscle Verified 08/23/24 10:56 Pain buspirone (From BuSpar) Allergy chest pain Verified 08/23/24 10:56 metronidazole (From Flagyl) Allergy ADR-Abdominal Verified 08/23/24 10:56 Pain Penicillins Allergy Unknown Verified 08/23/24 10:56 tetracycline Allergy Unknown Verified 08/23/24 10:56 [facility] Anesthesia Medical History Hyperlipidemia associated with type 2 diabetes mellitus Essential hypertension Subacromial impingement of left shoulder Tear of biceps tendon Acromioclavicular joint arthritis COVID-19 Sleep apnea Hypertension Thyroid cancer Surgical History H/O shoulder surgery Left - Dec 2022 History of eye surgery History of excision of mass (07/16/21) Status post colonoscopy History of esophagogastroduodenoscopy History of liver biopsy S/P angiogram of extremity H/O neck surgery Repeat cervical spine surgery on 03/15/22 H/O: hysterectomy H/O carpal tunnel repair H/O knee surgery History of appendectomy Hx laparoscopic cholecystectomy Family History Other Cancer Social History Smoking and tobacco/nicotine status: never used tobacco/nicotine Alcohol intake: never Substance/Drug Use: never Data Anesthesia Cardiac Studies: Echocardiogram 02/16/24 Sestamibi Stress Test (Cardiology) 02/20
--- NOTE | 2024-08-24 06:33 | W.PM.OPSFHP ---
Same Day Surgery H&P Indication for Procedure/HPI DATE OF PROCEDURE: August 24, 2024 CHIEF COMPLAINT/INDICATIONFOR SURGICAL PROCEDURE: Back pain and right leg pain PREOP DIAGNOSIS: Lumbar stenosis with neurogenic claudication PLANNED PROCEDURE: Operation Date: 08/24/24 07:00 Proposed Procedures p Lumbar Spine Decompression(Not Applicable) - Camilo Ansari, DO Medications/Allergies* Home Medications ?Medication ?Instructions ?Recorded ?Confirmed ?Type aspirin 81 mg tablet,delayed 81 mg PO DAILY 01/02/20 08/23/24 History release cholecalciferol (vitamin D3) 125 125 mcg PO DAILY 01/02/20 08/23/24 History mcg (5,000 unit) capsule citalopram 40 mg tablet (Celexa) 40 mg PO DAILY 01/02/20 08/23/24 History ferrous sulfate 325 mg (65 mg 325 mg PO DAILY 07/14/21 08/23/24 History iron) tablet omega-3 fatty acids 500 mg capsule 500 mg PO DAILY 07/14/21 08/23/24 History vitamin B complex 1 tab PO DAILY 07/15/21 08/23/24 History levothyroxine 175 mcg tablet 175 mcg PO DAILY 03/30/23 08/24/24 History latanoprost 0.005 % eye drops 1 drp ophthalmic (eye) BEDTIME 09/06/23 08/21/24 History (Xalatan) mecobalamin (vitamin B12) 1,000 500 mcg PO DAILY 04/12/24 08/23/24 History mcg chewable tablet (B12 Active) bupropion HCl 150 mg 24 hr tablet, mg PO 08/23/24 08/23/24 History extended release Allergies/Adverse Reactions Allergy/AdvReac Type Severity Reaction Status Date / Time clarithromycin (From Biaxin) Allergy Severe swells Verified 08/23/24 10:56 metoclopramide (From Reglan) Allergy Unknown UNKNOWN Verified 08/23/24 10:56 atorvastatin Allergy ADR-Muscle Verified 08/23/24 10:56 Pain buspirone (From BuSpar) Allergy chest pain Verified 08/23/24 10:56 metronidazole (From Flagyl) Allergy ADR-Abdominal Verified 08/23/24 10:56 Pain Penicillins Allergy Unknown Verified 08/23/24 10:56 tetracycline Allergy Unknown Verified 08/23/24 10:56 Pertinent History/Comorbid Conditions* Medical History (Updated 08/03/24 @ 00:00 by MITUL Evans) Hyperlipidemia associated with type 2 diabetes mellitus Essential hypertension Subacromial impingement of left shoulder Tear of biceps tendon Acromioclavicular joint arthritis COVID-19 Sleep apnea Hypertension Thyroid cancer Surgical History (Updated 10/08/23 @ 00:02 by MITUL Evans) H/O shoulder surgery Left - Dec 2022 History of eye surgery History of excision of mass (07/16/21) Status post colonoscopy History of esophagogastroduodenoscopy History of liver biopsy S/P angiogram of extremity H/O neck surgery Repeat cervical spine surgery on 03/15/22 H/O: hysterectomy H/O carpal tunnel repair H/O knee surgery History of appendectomy Hx laparoscopic cholecystectomy Family History (Updated 02/24/21 @ 15:24 by Harper Rosario MA) Cancer Social History Smoking and tobacco/nicotine status: never used tobacco/nicotine Alcohol intake: never Substance/Drug Use: never Pertinent Exam Findings alert, oriented x 3 and procedure specific exam findings Recommendations Risks and benefits of procedure reviewed Surgery/Procedure today Coding Level of Care Code Acute Code for Dennys Mendosa
[2024-08-24] MEDS: sodium chloride 0.9% 1,000 ML 30 ML IV (06:39)
[2024-08-24] MEDS: midazolam 1 mg/mL INJ 2 mL 2 MG IVP (06:47)
[2024-08-24] MEDS: clindamycin 600 MG/50 ML PREMIX 50 MG IV (07:14)
[2024-08-24 07:25] LABS: Glucose Point of Care 119 mg/dL (70-110)
[2024-08-24] MEDS: lidocaine-epi 1% PF 1:200,000 30 mL SDV INJECTION (07:35)
--- NOTE | 2024-08-24 08:12 | PM.OP ---
Operative Report Date of procedure: August 24, 2024 Pre-op diagnosis: Lumbar stenosis neurogenic claudication Post-op diagnosis: same Procedure done: L4/5 laminectomy with partial facetectomy Surgeon: Camilo Ansari DO Estimated blood loss (mL): 10 Procedure: L4/5 laminectomy with partial facetectomy Patient is brought to the operative suite. After undergoing anesthesia they are placed in the prone position. All areas of impingement are well padded. Patient is then prepped and draped in the normal sterile fashion. A skin incision is made over the L4/5 level. This is confirmed under c-arm guidance. A series of dilators are passed and the tubular retractor is docked on the L4 lamina. A bovie is used to clear the soft tissue off the lamina and the L 4/5 facet joint. A high speed keenan is then used to perform the laminectomy and take down the medial aspect of the L 4/5 facet joint. A kerrison rongeure was then used to take down the remaining lamina and smooth the edge of the laminectomy up to the point where the ligamentum flavum attaches. Attention was then brought to the medial aspect of the facet joint. The remaining medial aspect of the superior and inferior aspect of the facet joint were taken down with the kerrison from the pedicle of L4 to L 5. The facet joint had significant hypertrophy. Attention was then brought to the Ligamentum Flavum. The ligament was taken down from the lamina of L4 to L5 and out medially to the remaining facet joint. The ligament was thick. The dura was then exposed. The dura was in good repair. The L4 nerve was then traced with a curette out the L4/5 foramen and found to be adequately decompressed. The L5 nerve was traced with a curette around the L5 pedicle. The lateral recess was opened with a kerrison helping to further decompress the L5 nerve. Wound is then irrigated copiously with saline and surgiflo is used to stop any bleeding. The tubular retractor is removed and the wound is closed with vicryl and monocryl suture. Glue is then used to protect the wound. A sterile dressing is then placed. Patient was then placed in the supine position and transferred to the PACU in stable condition.
--- NOTE | 2024-08-24 12:33 | ANE.PACU2 ---
Inpatient post-anesthesia follow up: Airway intact: Yes Vital signs: Temperature 97.6 F Pulse Rate 76 Respiratory Rate 18 Blood Pressure 142/88 Pulse Oximetry 94 Oxygen Delivery Me thod Room Air Oxygen Flow Rate 8 Fraction of Inspir ed Oxygen Hydration adequate: Yes Nausea and vomiting: No Pain level: controlled Mental status: Baseline
--- NOTE | 2024-08-24 14:09 | XR_ITS ---
WS: [id number] XR lumbar spine 1V 17989 REASON FOR EXAM: or pic, decompression FINDINGS: Surgical device overlying the right L4-L5 disc space. XR/XR lumbar spine 1V [id number] IMPRESSION: Intraoperative lumbar localization as above.
== END 2024-08-24 09:38 | disposition home or self-care (01) ==
PROVIDERS: PCP Family Medicine; Visit Provider Orthopaedic Surgery
PROC: (CPT 63005; principal; 2024-08-24 07:00)
DX: M48.062 Spinal stenosis, lumbar region with neurogenic claudication (principal); I10 Essential (primary) hypertension; E11.69 Type 2 diabetes mellitus with other specified complication; E78.5 Hyperlipidemia, unspecified; E11.51 Type 2 diabetes mellitus with diabetic peripheral angiopathy without gangrene; Z85.850 Personal history of malignant neoplasm of thyroid; Z79.82 Long term (current) use of aspirin; Z79.899 Other long term (current) drug therapy; Z79.890 Hormone replacement therapy; Z79.84 Long term (current) use of oral hypoglycemic drugs; Z88.0 Allergy status to penicillin; Z88.8 Allergy status to other drugs, medicaments and biological substances; Z88.1 Allergy status to other antibiotic agents
CPT/HCPCS: 63047; 36416; 72020; 76000; 82962; J1100; J2250; J2371; J2405; J2704; J3010; J3490; J7030; J9999

== ENCOUNTER → 2024-09-11 14:47 | Outpatient (BNVA) | payer MEDICARE, OTHER, SELFPAY | PROVIDERS: PCP Family Medicine; Visit Provider Orthopaedic Surgery | DX: Z98.890 Other specified postprocedural states (principal) | CPT/HCPCS: 99024 ==

== ENCOUNTER 2024-09-11 19:41 | Emergency (ER) | payer MEDICARE, OTHER, SELFPAY ==
[2024-09-11 19:48] VITALS: BP 124/69; PULSE 74; RESP 18; TEMP 36.7; O2SAT 97; BMI 33.7
[2024-09-11 21:51] VITALS: BP 142/70; PULSE 78; RESP 16; O2SAT 97
--- NOTE | 2024-09-11 21:51 | CTR_ITS ---
PROCEDURE INFORMATION: Exam: CT Neck Without Contrast Exam date and time: 09/11/2024 10:31 PM Age: 69 years old Clinical indication: Neck pain; Additional info: Right neck swelling and pain TECHNIQUE: Imaging protocol: Computed tomography of the neck without contrast. Radiation optimization: All CT scans at this facility use at least one of these dose optimization techniques: automated exposure control; mA and/or kV adjustment per patient size (includes targeted exams where dose is matched to clinical indication); or iterative reconstruction. COMPARISON: CT head wo con* [id number] 09/11/2024 10:25 PM RADIATION DOSE METRICS: Total DLP (mGy-cm): 246.3 FINDINGS: Limitations: Evaluation of the neck is limited without IV contrast. Salivary glands: Severe fatty replacement of the parotid glands is noted. There is moderate atrophy of the submandibular glands. Pharynx: Unremarkable. No significant tonsillar enlargement. Larynx: Unremarkable. Epiglottis is normal. Thyroid: The thyroid gland appears absent. Trachea: Visualized trachea is unremarkable. Lungs: Unremarkable as visualized. Lymph nodes: Unremarkable. No lymphadenopathy. Bones/joints: No acute fracture. Postoperative fusion of C4 through C6 is noted. Solid bony fusion is present. Soft tissues: No significant inflammation or swelling is seen. Multiple surgical clips are present in the right neck. CT/CT neck wo con [id number] IMPRESSION: 1. No acute abnormality. 2. Chronic findings as discussed above.
--- NOTE | 2024-09-11 21:51 | CTR_ITS ---
PROCEDURE INFORMATION: Exam: CT Maxillofacial Without Contrast Exam date and time: 09/11/2024 10:31 PM Age: 69 years old Clinical indication: Jaw pain; Additional info: Right mandible and neck pain and swelling TECHNIQUE: Imaging protocol: Computed tomography of the face without contrast. Radiation optimization: All CT scans at this facility use at least one of these dose optimization techniques: automated exposure control; mA and/or kV adjustment per patient size (includes targeted exams where dose is matched to clinical indication); or iterative reconstruction. COMPARISON: CT head wo con* [id number] 09/11/2024 10:25 PM RADIATION DOSE METRICS: Total DLP (mGy-cm): 605.9 FINDINGS: Paranasal sinuses: No air-fluid levels. Orbital cavities: The orbits are normal. The globes are unremarkable. Salivary glands: Severe fatty replacement of the parotid glands is noted. There is moderate atrophy of the submandibular glands. Bones: No acute fracture. Soft tissues: No significant inflammation or swelling is seen. Multiple surgical clips are present in the right neck. CT/CT facial bones wo con* [id number] IMPRESSION: 1. No acute abnormality. 2. Chronic findings as discussed above.
--- NOTE | 2024-09-11 21:51 | CTR_ITS ---
PROCEDURE INFORMATION: Exam: CT Head Without Contrast Exam date and time: 09/11/2024 10:25 PM Age: 69 years old Clinical indication: Pain; Other: Facial; Additional info: Facial numbness TECHNIQUE: Imaging protocol: Computed tomography of the head without contrast. Radiation optimization: All CT scans at this facility use at least one of these dose optimization techniques: automated exposure control; mA and/or kV adjustment per patient size (includes targeted exams where dose is matched to clinical indication); or iterative reconstruction. COMPARISON: US soft tissue head neck [id number] 11/21/2020 2:16 PM RADIATION DOSE METRICS: Total DLP (mGy-cm): 1073.78 FINDINGS: Brain: There is no acute intracranial hemorrhage, cerebral edema, or midline shift. Chronic microvascular ischemic changes are seen in the periventricular white matter. Age-related cerebral and cerebellar volume loss is present. Cerebral ventricles: No hydrocephalus. Paranasal sinuses: There is no acute sinusitis. Mastoid air cells: The mastoid air cells are clear. Orbital cavities: The included orbital structures are unremarkable. Bones: Unremarkable. No acute fracture. Soft tissues: Unremarkable. Vasculature: Atherosclerotic calcifications are seen involving the cavernous carotid arteries. CT/CT head wo con* [id number] IMPRESSION: 1. No acute intracranial abnormality. 2. Atrophy and chronic deep white matter ischemic changes.
--- NOTE | 2024-09-11 21:51 | CTR_ITS ---
PROCEDURE INFORMATION: Exam: CT Lumbar Spine Without Contrast Exam date and time: 09/11/2024 10:28 PM Age: 69 years old Clinical indication: Low back pain; Additional info: Neck pain TECHNIQUE: Imaging protocol: Computed tomography of the lumbar spine without contrast. Radiation optimization: All CT scans at this facility use at least one of these dose optimization techniques: automated exposure control; mA and/or kV adjustment per patient size (includes targeted exams where dose is matched to clinical indication); or iterative reconstruction. COMPARISON: MR lumbar spine wo con* [id number] 06/28/2024 7:39 AM RADIATION DOSE METRICS: Total DLP (mGy-cm): 1047.51 FINDINGS: Bones/joints: Right L4 laminectomy changes. L1-L2: No significant disc bulge or herniation. No severe spinal canal stenosis. No significant neural foraminal narrowing. L2-L3: No significant disc bulge or herniation. No severe spinal canal stenosis. No significant neural foraminal narrowing. L3-L4: L3-L4 broad-based disc bulge with minimal bilateral foraminal narrowing. L4-L5: L4-L5 broad-based disc bulge with productive endplate changes with minimal right foraminal narrowing. L5-S1: No significant disc bulge or herniation. No severe spinal canal stenosis. No significant neural foraminal narrowing. Soft tissues: Unremarkable. CT/CT lumbar spine wo con* [id number] IMPRESSION: 1. L3-L4 broad-based disc bulge with minimal bilateral foraminal narrowing. 2. L4-L5 broad-based disc bulge with productive endplate changes with minimal right foraminal narrowing. 3. Right L4 laminectomy changes.
--- NOTE | 2024-09-11 22:04 | ECG_ITS ---
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
[2024-09-11 22:11] LABS: Basophils % 0.4 %; Eosinophils # 0.2 10^3/uL (0.0-0.8); Eosinophils % 1.6 %; Lymphocytes # 3.4 10^3/uL (0.8-4.8); Lymphocytes % 32.1 %; Mean Corpuscular HGB Conc 32.4 g/dL (30-55); Mean Corpuscular Hemoglobin 31.1 pg (27-33); Mean Platelet Volume 8.9 fL (7.4-10.4); Monocytes # 0.7 10^3/uL (0.2-0.9); Monocytes % 6.6 %; Neutrophils # 6.21 10^3/uL (1.8-7.7); Neutrophils % 58.8 %; Nucleated Red Blood Cells % 0 %; Platelet Count 360 10^3/cmm (157-399); Red Blood Count 4.27 10^6/uL (3.85-5.65); Red Cell Distribution Width 12.3 % (12.1-15.1); White Blood Count 10.56 10^3/uL (3.29-11.43)
[2024-09-11 22:23] LABS: Erythrocyte Sedimentation Rate 13 mm/hr (0-15)
--- NOTE | 2024-09-11 22:23 | W.ED.NECK ---
HPI - Neck Pain/Injury General: Chief Complaint: Neck Pain/Injury Stated Complaint: numbness in R side of face with swelling Time Seen by Provider: 09/11/24 21:49 History of Present Illness: 69-year-old female with a history of obesity, previous neck surgeries, hyperlipidemia, diabetes, sleep apnea and hypertension who presents to the emergency room with right-sided neck pain swelling and some paresthesias/numbness. She said a day or so ago she had some symptoms on the left and then today she developed a numbness over her right cheek and some pain below her ear and then feels like her neck and posterior mandible are swollen on the right side. No redness. No obvious swelling on observation. Related Data Home Medications ?Medication ?Instructions ?Recorded ?Confirmed aspirin 81 mg tablet,delayed 81 mg PO DAILY 01/02/20 09/11/24 release Held on 08/24/24. Instructions: Resume on 08/26/24. cholecalciferol (vitamin D3) 125 125 mcg PO DAILY 01/02/20 09/11/24 mcg (5,000 unit) capsule citalopram 40 mg tablet (Celexa) 40 mg PO DAILY 01/02/20 09/11/24 ferrous sulfate 325 mg (65 mg 325 mg PO DAILY 07/14/21 09/11/24 iron) tablet omega-3 fatty acids 500 mg capsule 500 mg PO DAILY 07/14/21 09/11/24 vitamin B complex 1 tab PO DAILY 07/15/21 09/11/24 levothyroxine 175 mcg tablet 175 mcg PO DAILY 03/30/23 09/11/24 latanoprost 0.005 % eye drops 1 drp ophthalmic (eye) BEDTIME 09/06/23 09/11/24 (Xalatan) mecobalamin (vitamin B12) 1,000 500 mcg PO DAILY 04/12/24 09/11/24 mcg chewable tablet (B12 Active) bupropion HCl 150 mg 24 hr tablet, mg PO 08/23/24 09/11/24 extended release Previous Rx's ?Medication ?Instructions ?Recorded pantoprazole 20 mg tablet,delayed 20 mg PO BID #180 tabs 01/03/24 release nitroglycerin 0.4 mg sublingual 0.4 mg sublingual Q5M PRN chest 01/19/24 tablet pain #20 tabs carvedilol 12.5 mg tablet See Rx Instructions .Route 03/05/24 .COMPLEX #180 tabs loratadine 5 mg-pseudoephedrine ER 1 tab PO Q12H PRN allergy symptoms 03/22/24 120 mg tablet,extended #30 tabs release,12hr (Claritin-D 12 Hour) triamcinolone acetonide 0.1 % 1 applic topical DAILY #30 grams 05/11/24 topical cream losartan 100 See Rx Instructions .Route 06/01/24 mg-hydrochlorothiazide 25 mg tablet .COMPLEX #90 tabs metformin 500 mg tablet See Rx Instructions .Route 06/01/24 .COMPLEX #90 tabs Manual wheelchair #1 ea 06/04/24 sucralfate 1 gram tablet 1 g PO BID #120 tabs 07/23/24 ondansetron HCl 4 mg tablet 4 mg PO Q8H PRN nausea and 08/04/24 vomiting #30 tabs carisoprodol 350 mg tablet 350 mg PO BID PRN muscle pain #30 08/07/24 tabs hydrocodone 5 mg-acetaminophen 325 1 - 2 tab PO .Q4-6H #40 tabs 08/24/24 mg tablet ropinirole 1 mg tablet See Rx Instructions .Route 09/04/24 .COMPLEX #90 tabs prednisone 20 mg tablet 20 mg PO DAILY #15 tabs 09/11/24 Allergies Allergy/AdvReac Type Severity Reaction Status Date / Time clarithromycin (From Biaxin) Allergy Severe swells Verified 09/11/24 19:56 metoclopramide (From Reglan) Allergy Unknown UNKNOWN Verified 09/11/24 19:56 atorvastatin Allergy ADR-Muscle Verified 09/11/24 19:56 Pain buspirone (From BuSpar) Allergy chest pain Verified 09/11/24 19:56 metronidazole (From Flagyl) Allergy ADR-Abdominal Verified 09/11/24 19:56 Pain Penicillins Allergy Unknown Verified 09/11/24 19:56 tetracycline Allergy Unknown Verified 09/11/24 19:56 Review of Systems Narrative: Constitutional symptoms: Negative except as documented in HPI. Skin symptoms: Negative except as documented in HPI. Eye symptoms: Negative except as documented in HPI. ENMT symptoms: Negative except as documented in HPI. Respiratory symptoms: Negative except as documented in HPI. Cardiovascular symptoms: Negative except as documented in HPI. Gastrointestinal symptoms: Negative except as documented in HPI. Genitourinary symptoms: Negative except as documented in HPI. Musculoskeletal symptoms: Negative except as documented in HPI. Neurologic symptoms: Negative except as documented in HPI. Psychiatric symptoms: Negative except as documented in HPI. Endocrine symptoms: Negative except as documented in HPI. PFSH ED PFSH: Medical History Hyperlipidemia associated with type 2 diabetes mellitus Essential hypertension Subacromial impingement of left shoulder Tear of biceps tendon Acromioclavicular joint arthritis COVID-19 Sleep apnea Hypertension Thyroid cancer Surgical History H/O shoulder surgery Left - Dec 2022 History of eye surgery History of excision of mass (07/16/21) Status post colonoscopy History of esophagogastroduodenoscopy History of liver biopsy S/P angiogram of extremity H/O neck surgery Repeat cervical spine surgery on 03/15/22 H/O: hysterectomy H/O carpal tunnel repair H/O knee surgery History of appendectomy Hx laparoscopic cholecystectomy Family History Other Cancer Social History Smoking and tobacco/nicotine status: never used tobacco/nicotine Alcohol intake: never Substance/Drug Use: never Physical Exam Narrative: EXAM NARRATIVE: General: Alert, no acute distress. Skin: Warm, dry. Head: Normocephalic, atraumatic. Neck: Supple, trachea midline. Eye: Extraocular movements are intact. Ears, nose, mouth and throat: mucosa moist. Right TM does not appear infected. Cardiovascular: Regular, Normal peripheral perfusion. Respiratory: Lungs are clear to auscultation, respirations are non-labored, breath sounds are equal, Symmetrical chest wall expansion. Gastrointestinal: Soft, Nontender, Non distended Musculoskeletal: Normal ROM, no deformity. Neurological: Alert and oriented, No focal neurological deficit observed. Psychiatric: Cooperative, appropriate mood & affect. Course Vital Signs: Vital signs: Vital Signs Temperature 98.1 F 09/11/24 19:48 Pulse Rate 78 09/11/24 21:51 Respiratory Rate 16 09/11/24 21:51 Blood Pressure 142/70 09/11/24 21:51 Pulse Oximetry 97 09/11/24 21:51 Oxygen Delivery Me thod Room Air 09/11/24 21:51 MDM - Neck Pain/Injury Medical Decision Making CT head: No acute intracranial process. no intracranial hemorrhage, no evidence of infarct. no evidence of acute fracture.This was reviewed and interpreted by myself the ER physician. CT of the neck/cervical spine: She does have some chronic changes. No fracture. Good alignment. No step-offs. This was reviewed and interpreted by myself the emergency room physician. I also reviewed the radiologist report. No soft tissue swellings. Patient declinedUsing contrast CT of the face: No acute acute. This was reviewed and interpreted by myself the emergency room physician. I also reviewed the radiology report. Lab Review: Laboratory results were reviewed and interpreted by myself the emergency room physician. No leukocytosis. No anemia. Slight worsening of the patient's chronic renal disease with creatinine of 1.5. I reviewed the patient's medical record. Reexamination: Patient remained stable. No increased work of breathing. No altered mental status. No focal motor deficits. Assessment and plan: Neck pain Paresthesia - Discharged home - Discussed plan with patient. Answered any questions. - Evaluation and treatment of this problem were appropriate in the emergency setting. Lab Data 09/11/24 22:04 09/11/24 22:[address] 09/11/24 21:51 IMPRESSION: 1. No acute abnormality. 2. Chronic findings as discussed above. Head CT 09/11/24 21:51 IMPRESSION: 1. No acute intracranial abnormality. 2. Atrophy and chronic deep white matter ischemic changes. Lumbar Spine CT 09/11/24 21:51 IMPRESSION: 1. L3-L4 broad-based disc bulge with minimal bilateral foraminal narrowing. 2. L4-L5 broad-based disc bulge with productive endplate changes with minimal right foraminal narrowing. 3. Right L4 laminectomy changes. Neck CT 09/11/24 21:51 IMPRESSION: 1. No acute abnormality. 2. Chronic findings as discussed above. Laboratory Results WBC 10.56 10^3/uL (3.29-11.43) 09/11/24 22:04 RBC 4.27 10^6/uL (3.85-5.65) 09/11/24 22:04 Hgb 13.30 g/dL (11.27-16.99) 09/11/24 22:04 Hct 41.0 % (36-47) 09/11/24 22:04 MCV 96.0 fl (85-98) 09/11/24 22:04 MCH 31.1 pg (27-33) 09/11/24 22:04 MCHC 32.4 g/dL (30-55) 09/11/24 22:04 RDW 12.3 % (12.1-15.1) 09/11/24 22:04 Plt Count 360 10^3/cmm (157-399) 09/11/24 22:04 MPV 8.9 fL (7.4-10.4) 09/11/24 22:04 Neut % (Auto) 58.8 % 09/11/24 22:04 Lymph % (Auto) 32.1 % 09/11/24 22:04 Holmes % (Auto) 6.6 % 09/11/24 22:04 Eos % (Auto) 1.6 % 09/11/24 22:04 Baso % (Auto) 0.4 % 09/11/24 22:04 Neut # (Auto) 6.21 10^3/uL (1.8-7.7) 09/11/24 22:04 Lymph # (Auto) 3.4 10^3/uL (0.8-4.8) 09/11/24 22:04 Holmes # (Auto) 0.7 10^3/uL (0.2-0.9) 09/11/24 22:04 Eos # (Auto) 0.2 10^3/uL (0.0-0.8) 09/11/24 22:04 Baso # (Auto) 0.0 10^3/uL (0.0-0.1) 09/11/24 22:04 Nucleated RBC % (auto) 0 % 09/11/24 22:04 Nucleated RBCs # 0.0 /100WBC 09/11/24 22:04 ESR 13 mm/hr (0-15) 09/11/24 22:04 Sodium 136 mmol/L (136-145) 09/11/24 22:04 Potassium 4.4 mmol/L (3.5-5.1) 09/11/24 22:04 Chloride 95 mmol/L (98-107) L 09/11/24 22:04 Carbon Dioxide 29 mmol/L (22-29) 09/11/24 22:04 Anion Gap 16.4 (5-19) 09/11/24 22:04 BUN 21 mg/dL (8-23) 09/11/24 22:04 Creatinine 1.5 mg/dL (0.5-0.9) H 09/11/24 22:04 GFR Calculation 34.5 mL/min (90-130) L 09/11/24 22:04 Glucose 115 mg/dL (65-115) 09/11/24 22:04 Calculated Osmolality 286 mOsm/kg (285-295) 09/11/24 22:04 Lactic Acid 2.0 mmol/L (0.5-2.2) 09/11/24 22:04 Calcium 10.1 mg/dL (8.5-10.5) 09/11/24 22:04 Total Bilirubin 0.2 mg/dL (0.15-1.2) 09/11/24 22:04 AST 15 U/L (0-32) 09/11/24 22:04 ALT 21 U/L (0-33) 09/11/24 22:04 Alkaline Phosphatase 105 U/L (35-105) 09/11/24 22:04 C-Reactive Protein 11.1 mg/L (0.0-4.9) H 09/11/24 22:04 Total Protein 7.9 g/dL (6.6-8.7) 09/11/24 22:04 Albumin 4.4 g/dL (3.5-5.2) 09/11/24 22:04 Globulin 3.5 g/dL (1.3-4.6) 09/11/24 22:04 All radiology interpretation(s) finalized by discharge Discharge Plan Discharge Patient Disposition: Home Clinical Impression: Neck pain Condition: Stable Prescriptions: No Action citalopram [Celexa] 40 mg tablet 40 mg PO DAILY aspirin 81 mg tablet,delayed release (DR/EC) 81 mg PO DAILY cholecalciferol (vitamin D3) 125 mcg (5,000 unit) capsule 125 mcg PO DAILY ferrous sulfate 325 mg (65 mg iron) tablet 325 mg PO DAILY omega-3 fatty acids 500 mg capsule 500 mg PO DAILY Claritin-D 12 Hour 5-120 mg tablet extended release 12 hr 1 tab PO Q12H PRN (Reason: allergy symptoms) Qty: 30 3RF prednisone 20 mg tablet 20 mg PO DAILY Qty: 15 0RF Rx Instructions: 60mg for three days,40mg for two days,20mg for two days levothyroxine 175 mcg tablet 175 mcg PO DAILY nitroglycerin 0.4 mg tablet, sublingual 0.4 mg sublingual Q5M PRN (Reason: chest pain) Qty: 20 3RF Rx Instructions: do not exceed 3 doses per episode pantoprazole 20 mg tablet,delayed release (DR/EC) 20 mg PO BID Qty: 180 3RF carvedilol 12.5 mg tablet See Rx Instructions .ROUTE .COMPLEX Qty: 180 3RF Dose Instruction: TAKE 1 TABLET BY MOUTH TWICE DAILY Rx Instructions: TAKE 1 TABLET BY MOUTH TWICE DAILY B12 Active 1,000 mcg tablet,chewable 500 mcg PO DAILY triamcinolone acetonide 0.1 % cream 1 applic topical DAILY Qty: 30 6RF losartan-hydrochlorothiazide 100-25 mg tablet See Rx Instructions .ROUTE .COMPLEX Qty: 90 3RF Dose Instruction: TAKE 1 TABLET BY MOUTH EVERY DAY Rx Instructions: TAKE 1 TABLET BY MOUTH EVERY DAY metformin 500 mg tablet See Rx Instructions .ROUTE .COMPLEX Qty: 90 3RF Dose Instruction: TAKE 1 TABLET BY MOUTH EVERY DAY Rx Instructions: TAKE 1 TABLET BY MOUTH EVERY DAY (DME) Manual wheelchair See Rx Instructions .Route .MEDSUPPLY Qty: 1 0RF Rx Instructions: As directed sucralfate 1 gram tablet 1 g PO BID Qty: 120 3RF ondansetron HCl 4 mg tablet 4 mg PO Q8H PRN (Reason: nausea and vomiting) Qty: 30 6RF carisoprodol 350 mg tablet 350 mg PO BID PRN (Reason: muscle pain) Qty: 30 1RF ropinirole 1 mg tablet See Rx Instructions .ROUTE .COMPLEX Qty: 90 1RF Dose Instruction: TAKE 1 TABLET BY MOUTH EVERY EVENING NEEDED Rx Instructions: TAKE 1 TABLET BY MOUTH EVERY EVENING NEEDED vitamin B complex Tablet Extended Release 1 tab PO DAILY latanoprost [Xalatan] 0.005 % drops 1 drp ophthalmic (eye) BEDTIME bupropion HCl 150 mg tablet extended release 24 hr PO hydrocodone-acetaminophen 5-325 mg tablet 1 - 2 tab PO .Q4-6H Qty: 40 0RF Discharge Orders: Discharge ED (Routine); Ordered 09/11/24 Ordered By: Jennifer Yepez Referrals: Gus Booker MD [Primary Care Provider, Family Practice] Discharge Diet: Usual diet Discharge Activity: Increase activity as tolerated Patient Instructions: Paresthesia (ED), Acute Neck Pain (ED), Opioid Safety, Pain Management Activity Restrictions/Additional Instructions: Thank you for choosing [facility] for your healthcare needs today. You have been screened and evaluated and felt safe for discharge. Health conditions do change or evolve sometimes and as such it is important that you follow up with your Primary Doctor to be re checked, 3-5 days is a general good time frame for follow up. You are always welcome to return to the ED for re assessment if your symptoms are worsening or you have new concerns Print Language: Prydeinig Coding Level of Care Code ED Before School for Dennys Mendosa
[2024-09-11 22:29] LABS: Alanine Aminotransferase 21 U/L (0-33); Albumin Level 4.4 g/dL (3.5-5.2); Alkaline Phosphatase 105 U/L (35-105); Anion Gap 16.4 (5-19); Aspartate Amino Transferase 15 U/L (0-32); Blood Urea Nitrogen 21 mg/dL (8-23); C Reactive Protein 11.1 mg/L (0.0-4.9); Calcium 10.1 mg/dL (8.5-10.5); Carbon Dioxide 29 mmol/L (22-29); Chloride 95 mmol/L (98-107); Creatinine Clr Calc Pharmacy 43.0941; Globulin 3.5 g/dL (1.3-4.6); Glomerular Filtration Rate 34.5 mL/min (90-130); Glucose 115 mg/dL (65-115); Osmolality Calculated 286 mOsm/kg (285-295); Potassium 4.4 mmol/L (3.5-5.1); Sodium 136 mmol/L (136-145); Total Bilirubin 0.2 mg/dL (0.15-1.2); Total Protein 7.9 g/dL (6.6-8.7)
[2024-09-12 00:02] VITALS: BP 146/63; PULSE 88; RESP 16; O2SAT 97
== END 2024-09-12 00:03 | disposition home or self-care (01) ==
PROVIDERS: Emergency Provider Emergency Medicine; PCP Family Medicine
DX: M54.2 Cervicalgia (principal); Z79.82 Long term (current) use of aspirin; Z79.84 Long term (current) use of oral hypoglycemic drugs; Z85.850 Personal history of malignant neoplasm of thyroid; E78.5 Hyperlipidemia, unspecified; E11.9 Type 2 diabetes mellitus without complications; I10 Essential (primary) hypertension
CPT/HCPCS: 36415; 70450; 70486; 70490; 72131; 80053; 83605; 85025; 85651; 86140; 87040; 93005; 99284

== ENCOUNTER 2024-09-25 15:17 | Emergency (ER) | payer MEDICARE, OTHER, SELFPAY ==
[2024-09-25 15:28] VITALS: BP 94/60; PULSE 80; RESP 17; TEMP 36.6; O2SAT 96; BMI 34.7
--- NOTE | 2024-09-25 15:32 | ECG_ITS ---
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 Measurements Intervals [place] Rate: 74 P: 66 NM: 167 QRS: 18 QRSD: 87 T: 74 QT: 369 QTc: 411 Interpretive Statements SINUS RHYTHM LOW QRS VOLTAGE IN PRECORDIAL LEADS [QRS DEFLECTION < 1.0 mV IN CHEST LEADS] POSSIBLE RIGHT VENTRICULAR CONDUCTION DELAY [RSR (QR) IN V1/V2] NONSPECIFIC T-WAVE ABNORMALITY Compared to ECG 09/11/2024 22:04:24 Low QRS voltage now present T-wave abnormality still present Electronically Signed On 09-26-2024 21:50:32 CDT by Moris Coley M.D. [email or web address]
[2024-09-25 16:14] VITALS: BP 118/66; PULSE 73; O2SAT 93
--- NOTE | 2024-09-25 16:28 | W.ED.GENADLT ---
HPI - General Adult General: Chief complaint: Weakness Stated complaint: blood pressure Time Seen by Provider: 09/25/24 16:13 Source: patient Mode of arrival: ambulatory Limitations: no limitations History of Present Illness: Patient is a 69-year-old female presents to the emergency department after rapid response was called while she was at the medical office building. She states she was at Dr. Ansari's office and was scheduled for x-rays. She was having routine vitals taken when they noticed that her blood pressure was 90s/60s. Patient states she was completely asymptomatic. She states she was somewhat taken aback when everybody rushed in . Upon arrival here her blood pressure is normal. During my examination blood pressure is 118/66. Patient states she has had some intermittent dizziness for several months. She states she has taken her blood pressures and blood sugars at home and they do not seem to correlate with her intermittent episodes of dizziness. She said they do not seem to be positionally related but then later states she had an episode of dizziness recently when I leaned up from tying my shoes . She has plans to follow-up with her primary care provider regarding this later this month. Patient is not complaining of chest pain, lightheadedness, weakness, shortness of breath, palpitations. Onset (ago): minute(s) Relieving factors: none Exacerbating factors: none Associated symptoms: Reports no associated symptoms; Deny chest pain, confusion, dyspnea, headache(s), malaise, nausea, palpitations, syncope or vomiting Treatments prior to arrival: none Related Data Home Medications ?Medication ?Instructions ?Recorded ?Confirmed aspirin 81 mg tablet,delayed 81 mg PO DAILY 01/02/20 09/25/24 release Held on 08/24/24. Instructions: Resume on 08/26/24. cholecalciferol (vitamin D3) 125 125 mcg PO DAILY 01/02/20 09/25/24 mcg (5,000 unit) capsule citalopram 40 mg tablet (Celexa) 40 mg PO DAILY 01/02/20 09/25/24 ferrous sulfate 325 mg (65 mg 325 mg PO DAILY 07/14/21 09/25/24 iron) tablet omega-3 fatty acids 500 mg capsule 500 mg PO DAILY 07/14/21 09/25/24 vitamin B complex 1 tab PO DAILY 07/15/21 09/25/24 levothyroxine 175 mcg tablet 175 mcg PO DAILY 03/30/23 09/25/24 latanoprost 0.005 % eye drops 1 drp ophthalmic (eye) BEDTIME 09/06/23 09/25/24 (Xalatan) mecobalamin (vitamin B12) 1,000 500 mcg PO DAILY 04/12/24 09/25/24 mcg chewable tablet (B12 Active) bupropion HCl 150 mg 24 hr tablet, mg PO 08/23/24 09/25/24 extended release Previous Rx's ?Medication ?Instructions ?Recorded pantoprazole 20 mg tablet,delayed 20 mg PO BID #180 tabs 01/03/24 release nitroglycerin 0.4 mg sublingual 0.4 mg sublingual Q5M PRN chest 01/19/24 tablet pain #20 tabs carvedilol 12.5 mg tablet See Rx Instructions .Route 03/05/24 .COMPLEX #180 tabs loratadine 5 mg-pseudoephedrine ER 1 tab PO Q12H PRN allergy symptoms 03/22/24 120 mg tablet,extended #30 tabs release,12hr (Claritin-D 12 Hour) triamcinolone acetonide 0.1 % 1 applic topical DAILY #30 grams 05/11/24 topical cream losartan 100 See Rx Instructions .Route 06/01/24 mg-hydrochlorothiazide 25 mg tablet .COMPLEX #90 tabs metformin 500 mg tablet See Rx Instructions .Route 06/01/24 .COMPLEX #90 tabs Manual wheelchair #1 ea 06/04/24 sucralfate 1 gram tablet 1 g PO BID #120 tabs 07/23/24 ondansetron HCl 4 mg tablet 4 mg PO Q8H PRN nausea and 08/04/24 vomiting #30 tabs ropinirole 1 mg tablet See Rx Instructions .Route 09/04/24 .COMPLEX #90 tabs prednisone 20 mg tablet 20 mg PO DAILY #15 tabs 09/11/24 hydrocodone 5 mg-acetaminophen 325 1 - 2 tab PO .Q4-6H 2 weeks #20 09/18/24 mg tablet tabs carisoprodol 350 mg tablet 350 mg PO BID PRN muscle pain #30 09/21/24 tabs Allergies Allergy/AdvReac Type Severity Reaction Status Date / Time clarithromycin (From [employer]in) Allergy Severe swells Verified 09/25/24 14:44 metoclopramide (From Reglan) Allergy Unknown UNKNOWN Verified 09/25/24 14:44 atorvastatin Allergy ADR-Muscle Verified 09/25/24 14:44 Pain buspirone (From BuSpar) Allergy chest pain Verified 09/25/24 14:44 metronidazole (From Flagyl) Allergy ADR-Abdominal Verified 09/25/24 14:44 Pain Penicillins Allergy Unknown Verified 09/25/24 14:44 tetracycline Allergy Unknown Verified 09/25/24 14:44 Review of Systems Const: Denies: fever(s), chills, body aches, fatigue or malaise Eyes: Denies: change in vision, blurry vision or seeing flashes Card: Denies: chest pain, palpitations, irregular heart rhythm, edema, swelling of feet/ankles, lightheadedness, syncope, pre-syncope, dyspnea on exertion, orthopnea, leg pain with exertion or acrocyanosis Resp: Denies: dyspnea GI: Denies: abdominal pain, nausea or vomiting Neuro: Reports: dizziness (intermittently x months); Denies: headache(s), numbness in extremities, weakness in extremities, sensory changes, lack of coordination, difficulty walking, frequent falls, confusion, behavioral changes, Slurred speech present, difficulty communicating thoughts or seizure-like activity PFSH ED PFSH: Medical History Hyperlipidemia associated with type 2 diabetes mellitus Essential hypertension Subacromial impingement of left shoulder Tear of biceps tendon Acromioclavicular joint arthritis COVID-19 Sleep apnea Hypertension Thyroid cancer Surgical History H/O shoulder surgery Left - Dec 2022 History of eye surgery History of excision of mass (07/16/21) Status post colonoscopy History of esophagogastroduodenoscopy History of liver biopsy S/P angiogram of extremity H/O neck surgery Repeat cervical spine surgery on 03/15/22 H/O: hysterectomy H/O carpal tunnel repair H/O knee surgery History of appendectomy Hx laparoscopic cholecystectomy Family History Other Cancer Social History Smoking and tobacco/nicotine status: never used tobacco/nicotine Alcohol intake: never Substance/Drug Use: never Physical Exam Const: COMMON NORMALS: no acute distress, average body habitus, patient oriented x3, no limitations, healthy appearing, alert and well nourished GENERAL APPEARANCE: cooperative HENMT: COMMON NORMALS: normocephalic and atraumatic HEAD & SCALP: normal to inspection, normocephalic and atraumatic FACE & SINUS: normal facial exam and face symmetric Eye: GENERAL EYE: appearance normal, both eyes and all related structures Resp: COMMON NORMALS: normal respiratory effort and clear to auscultation bilaterally AUSCULTATION: clear to auscultation bilaterally Cardio: COMMON NORMALS: regular rate and regular rhythm RATE: regular rate RHYTHM: regular rhythm Neuro: COMMON NORMALS: patient oriented x3 SENSORIUM/ORIENTATION: Yes alert Course Vital Signs: Vital signs: Vital Signs Temperature 97.9 F 09/25/24 15:28 Pulse Rate 73 09/25/24 16:14 Respiratory Rate 17 09/25/24 15:28 Blood Pressure 118/66 09/25/24 16:14 Pulse Oximetry 93 09/25/24 16:14 Oxygen Delivery Me thod Room Air 09/25/24 15:28 MDM - General Adult Medical Decision Making Patient is asymptomatic. Her blood pressure here has improved and is now 118/66. I do not see any indication for emergency workup today. She can follow-up with primary care later this month as scheduled. Return to ED precautions discussed Medical Records I reviewed the patient's medical records. No radiology studies performed this visit Discharge Plan Discharge Patient Disposition: Home Clinical Impression: Low blood pressure reading Condition: Stable Prescriptions: No Action citalopram [Celexa] 40 mg tablet 40 mg PO DAILY aspirin 81 mg tablet,delayed release (DR/EC) 81 mg PO DAILY cholecalciferol (vitamin D3) 125 mcg (5,000 unit) capsule 125 mcg PO DAILY ferrous sulfate 325 mg (65 mg iron) tablet 325 mg PO DAILY omega-3 fatty acids 500 mg capsule 500 mg PO DAILY Claritin-D 12 Hour 5-120 mg tablet extended release 12 hr 1 tab PO Q12H PRN (Reason: allergy symptoms) Qty: 30 3RF prednisone 20 mg tablet 20 mg PO DAILY Qty: 15 0RF Rx Instructions: 60mg for three days,40mg for two days,20mg for two days levothyroxine 175 mcg tablet 175 mcg PO DAILY nitroglycerin 0.4 mg tablet, sublingual 0.4 mg sublingual Q5M PRN (Reason: chest pain) Qty: 20 3RF Rx Instructions: do not exceed 3 doses per episode pantoprazole 20 mg tablet,delayed release (DR/EC) 20 mg PO BID Qty: 180 3RF carvedilol 12.5 mg tablet See Rx Instructions .ROUTE .COMPLEX Qty: 180 3RF Dose Instruction: TAKE 1 TABLET BY MOUTH TWICE DAILY Rx Instructions: TAKE 1 TABLET BY MOUTH TWICE DAILY B12 Active 1,000 mcg tablet,chewable 500 mcg PO DAILY triamcinolone acetonide 0.1 % cream 1 applic topical DAILY Qty: 30 6RF losartan-hydrochlorothiazide 100-25 mg tablet See Rx Instructions .ROUTE .COMPLEX Qty: 90 3RF Dose Instruction: TAKE 1 TABLET BY MOUTH EVERY DAY Rx Instructions: TAKE 1 TABLET BY MOUTH EVERY DAY metformin 500 mg tablet See Rx Instructions .ROUTE .COMPLEX Qty: 90 3RF Dose Instruction: TAKE 1 TABLET BY MOUTH EVERY DAY Rx Instructions: TAKE 1 TABLET BY MOUTH EVERY DAY (DME) Manual wheelchair See Rx Instructions .Route .MEDSUPPLY Qty: 1 0RF Rx Instructions: As directed sucralfate 1 gram tablet 1 g PO BID Qty: 120 3RF ondansetron HCl 4 mg tablet 4 mg PO Q8H PRN (Reason: nausea and vomiting) Qty: 30 6RF ropinirole 1 mg tablet See Rx Instructions .ROUTE .COMPLEX Qty: 90 1RF Dose Instruction: TAKE 1 TABLET BY MOUTH EVERY EVENING NEEDED Rx Instructions: TAKE 1 TABLET BY MOUTH EVERY EVENING NEEDED hydrocodone-acetaminophen 5-325 mg tablet 1 - 2 tab PO .Q4-6H 14 Days Qty: 20 0RF carisoprodol 350 mg tablet 350 mg PO BID PRN (Reason: muscle pain) Qty: 30 1RF vitamin B complex Tablet Extended Release 1 tab PO DAILY latanoprost [Xalatan] 0.005 % drops 1 drp ophthalmic (eye) BEDTIME bupropion HCl 150 mg tablet extended release 24 hr PO Discharge Orders: Discharge ED (Routine); Ordered 09/25/24 Ordered By: Heydi Candelaria Referrals: Gsu Booker MD [Primary Care Provider, Family Practice] Activity Restrictions/Additional Instructions: As we discussed, your blood pressure readings have been normal during your emergency department visit. I do not feel we need to perform testing/imaging at this time as you are asymptomatic. Print Language: Hungarian Coding Level of Care Code ED Child Care [facility] Director for Dennys Mendosa
[2024-09-25 16:45] VITALS: BP 112/71; BP 118/66; PULSE 87; O2SAT 98
== END 2024-09-25 16:46 | disposition home or self-care (01) ==
PROVIDERS: Emergency Provider Physician Assistant; PCP Family Medicine
DX: R03.1 Nonspecific low blood-pressure reading (principal); Z79.82 Long term (current) use of aspirin; Z79.84 Long term (current) use of oral hypoglycemic drugs; Z85.850 Personal history of malignant neoplasm of thyroid; E78.5 Hyperlipidemia, unspecified; E11.9 Type 2 diabetes mellitus without complications
CPT/HCPCS: 72100; 93005; 99283

== ENCOUNTER 2024-10-05 19:48 | Emergency (ER) | payer MEDICARE, OTHER, SELFPAY ==
[2024-10-05 20:00] VITALS: PULSE 81; O2SAT 97
[2024-10-05 20:05] VITALS: BP 123/78; PULSE 85; RESP 18; TEMP 36.8; O2SAT 97; BMI 34.4
--- NOTE | 2024-10-05 20:09 | XRR_ITS ---
PROCEDURE INFORMATION: Exam: XR Left Shoulder Exam date and time: 10/05/2024 8:53 PM Age: 69 years old Clinical indication: Injury or trauma; Blunt trauma (contusions or hematomas); Left; Syncope with fall. C/O bilateral shoulder pain. ; Additional info: Fall/syncope with bilateral shoulder pain TECHNIQUE: Imaging protocol: Radiologic exam of the left shoulder. Views: 2 or more views. COMPARISON: MR shoulder LT wo con* [id number] 12/09/2022 1:00 PM FINDINGS: Bones/joints: Chronic deformity of the humeral head. No dislocation. No definite acute displaced fracture. Moderate glenohumeral joint degenerative changes. Moderate acromioclavicular joint degenerative changes. Soft tissues: Normal. XR/XR shoulder LT min 2V* [id number] IMPRESSION: As above.
--- NOTE | 2024-10-05 20:09 | XRR_ITS ---
PROCEDURE INFORMATION: Exam: XR Right Shoulder Exam date and time: 10/05/2024 8:54 PM Age: 69 years old Clinical indication: Injury or trauma; Blunt trauma (contusions or hematomas); Right; Syncope with fall. C/O bilateral shoulder pain; Additional info: Fall/syncope with bilateral shoulder pain TECHNIQUE: Imaging protocol: Radiologic exam of the right shoulder. Views: 2 or more views. COMPARISON: CR XR chest 1V portable [id number] 10/05/2024 8:51 PM FINDINGS: Bones/joints: Normal. Soft tissues: Normal. XR/XR shoulder RT min 2V* [id number] IMPRESSION: No acute findings.
--- NOTE | 2024-10-05 20:10 | XRR_ITS ---
PROCEDURE INFORMATION: Exam: XR Chest Exam date and time: 10/05/2024 8:51 PM Age: 69 years old Clinical indication: Other: Syncope; Syncopal episode TECHNIQUE: Imaging protocol: Radiologic exam of the chest. Views: 1 view. COMPARISON: CR XR chest 1V portable [id number] 07/25/2024 11:14 PM FINDINGS: Lungs: Unremarkable. No consolidation. Pleural spaces: Unremarkable. No pleural effusion. No pneumothorax. Heart/Mediastinum: Unremarkable. No cardiomegaly. Bones/joints: Chronic left proximal humeral head deformity.. XR/XR chest 1V portable [id number] IMPRESSION: No acute findings.
--- NOTE | 2024-10-05 20:10 | CTR_ITS ---
PROCEDURE INFORMATION: Exam: CT Head Without Contrast Exam date and time: 10/05/2024 8:46 PM Age: 69 years old Clinical indication: Injury or trauma; Blunt trauma (contusions or hematomas); Syncope with fall. Laceration to left eyebrow. TECHNIQUE: Imaging protocol: Computed tomography of the head without contrast. Radiation optimization: All CT scans at this facility use at least one of these dose optimization techniques: automated exposure control; mA and/or kV adjustment per patient size (includes targeted exams where dose is matched to clinical indication); or iterative reconstruction. COMPARISON: CT head wo con* [id number] 09/11/2024 10:25 PM RADIATION DOSE METRICS: Total DLP (mGy-cm): 1014.58 FINDINGS: Brain: Age appropriate atrophy and small vessel ischemic change. No evidence of intracranial hemorrhage, mass effect, midline shift or extra-axial fluid collections. Midline structures are normal. Ochoa-white matter differentiation is normal. Cerebral ventricles: No ventriculomegaly. Paranasal sinuses: Visualized sinuses are unremarkable. No fluid levels. Mastoid air cells: Visualized mastoid air cells are well aerated. Orbital cavities: The patient has had bilateral lens replacement surgery. Bones: Unremarkable. No acute fracture. Soft tissues: Unremarkable. Vasculature: Carotid atherosclerotic calcification. CT/CT head wo con* [id number] IMPRESSION: No acute intracranial injury.
--- NOTE | 2024-10-05 20:10 | CTR_ITS ---
PROCEDURE INFORMATION: Exam: CT Cervical Spine Without Contrast Exam date and time: 10/05/2024 8:49 PM Age: 69 years old Clinical indication: Injury or trauma; Blunt trauma; Prior surgery; Surgery date: 6+ months; Surgery type: Cervical fusion; Syncope with fall. C/O neck pain. ; Additional info: Syncope with neck pain TECHNIQUE: Imaging protocol: Computed tomography of the cervical spine without contrast. Radiation optimization: All CT scans at this facility use at least one of these dose optimization techniques: automated exposure control; mA and/or kV adjustment per patient size (includes targeted exams where dose is matched to clinical indication); or iterative reconstruction. COMPARISON: CT neck w con* [id number] 09/11/2024 10:31 PM RADIATION DOSE METRICS: Total DLP (mGy-cm): 436.17 FINDINGS: Bones/joints: There has been an anterior fusion of C4 through C6 which appears intact. Intervertebral strut material appears well incorporated. Normal alignment. No acute fractures. Lungs: Lung apices are normal. Vasculature: Surgical clips along the right carotid artery. Soft tissues: Unremarkable. CT/CT cervical spin wo con* [id number] IMPRESSION: No acute injury.
[2024-10-05 20:38] VITALS: BP 140/89; PULSE 86; RESP 16; O2SAT 96
[2024-10-05 20:47] LABS: Basophils % 0.4 %; Eosinophils # 0.2 10^3/uL (0.0-0.8); Eosinophils % 1.8 %; Hematocrit 39.2 % (36-47); Lymphocytes # 2.9 10^3/uL (0.8-4.8); Lymphocytes % 29.3 %; Mean Corpuscular HGB Conc 33.9 g/dL (30-55); Mean Corpuscular Hemoglobin 31.4 pg (27-33); Mean Corpuscular Volume 92.7 fl (85-98); Mean Platelet Volume 8.6 fL (7.4-10.4); Monocytes # 0.7 10^3/uL (0.2-0.9); Monocytes % 6.9 %; Neutrophils # 6.01 10^3/uL (1.8-7.7); Neutrophils % 61.1 %; Nucleated Red Blood Cells % 0 %; Platelet Count 278 10^3/cmm (157-399); Red Blood Count 4.23 10^6/uL (3.85-5.65); Red Cell Distribution Width 12.3 % (12.1-15.1); White Blood Count 9.84 10^3/uL (3.29-11.43)
[2024-10-05 20:57] LABS: Troponin(5th) Baseline 10 ng/L (0-10)
[2024-10-05 21:14] LABS: Alanine Aminotransferase 20 U/L (0-33); Albumin Level 4.2 g/dL (3.5-5.2); Alkaline Phosphatase 91 U/L (35-105); Anion Gap 17.3 (5-19); Aspartate Amino Transferase 14 U/L (0-32); Blood Urea Nitrogen 22 mg/dL (8-23); Calcium 9.7 mg/dL (8.5-10.5); Carbon Dioxide 25 mmol/L (22-29); Chloride 96 mmol/L (98-107); Creatinine Clr Calc Pharmacy 50.2651; Globulin 2.6 g/dL (1.3-4.6); Glomerular Filtration Rate 40.7 mL/min (90-130); Glucose 105 mg/dL (65-115); Magnesium 1.8 mg/dL (1.7-2.3); Osmolality Calculated 282 mOsm/kg (285-295); Potassium 4.3 mmol/L (3.5-5.1); Sodium 134 mmol/L (136-145); Total Bilirubin 0.2 mg/dL (0.15-1.2); Total Protein 6.8 g/dL (6.6-8.7)
--- NOTE | 2024-10-05 21:27 | W.ED.FALL ---
HPI - Fall General: Chief Complaint: Fall Stated Complaint: fall- left eye lac, neck pain Time Seen by Provider: 10/05/24 19:59 History of Present Illness: Patient is a 69-year-old female with history of hypertension, on carvedilol, losartan/HCTZ, presents to the ED after syncope, lightheadedness, dizziness, with injury without LOC, and patient admits to days. She is on aspirin chronically. She complains of pain in her neck, laceration above her left eye, low right back tenderness. She does admit to lightheadedness and dizziness today. Only diuretic she is on is her losartan/HCTZ. Patient recalls that she was supposed to cut these in half, and she thinks she utilized the full tablet this month. Associated symptoms-after fall: Reports neck pain; Denies abdominal pain, chest pain or headache(s) Related Data Home Medications ?Medication ?Instructions ?Recorded ?Confirmed aspirin 81 mg tablet,delayed 81 mg PO DAILY 01/02/20 09/25/24 release Held on 08/24/24. Instructions: Resume on 08/26/24. cholecalciferol (vitamin D3) 125 125 mcg PO DAILY 01/02/20 09/25/24 mcg (5,000 unit) capsule citalopram 40 mg tablet (Celexa) 40 mg PO DAILY 01/02/20 09/25/24 ferrous sulfate 325 mg (65 mg 325 mg PO DAILY 07/14/21 09/25/24 iron) tablet omega-3 fatty acids 500 mg capsule 500 mg PO DAILY 07/14/21 09/25/24 vitamin B complex 1 tab PO DAILY 07/15/21 09/25/24 levothyroxine 175 mcg tablet 175 mcg PO DAILY 03/30/23 09/25/24 latanoprost 0.005 % eye drops 1 drp ophthalmic (eye) BEDTIME 09/06/23 09/25/24 (Xalatan) mecobalamin (vitamin B12) 1,000 500 mcg PO DAILY 04/12/24 09/25/24 mcg chewable tablet (B12 Active) bupropion HCl 150 mg 24 hr tablet, mg PO 08/23/24 09/25/24 extended release Previous Rx's ?Medication ?Instructions ?Recorded pantoprazole 20 mg tablet,delayed 20 mg PO BID #180 tabs 01/03/24 release nitroglycerin 0.4 mg sublingual 0.4 mg sublingual Q5M PRN chest 01/19/24 tablet pain #20 tabs carvedilol 12.5 mg tablet See Rx Instructions .Route 03/05/24 .COMPLEX #180 tabs loratadine 5 mg-pseudoephedrine ER 1 tab PO Q12H PRN allergy symptoms 03/22/24 120 mg tablet,extended #30 tabs release,12hr (Claritin-D 12 Hour) triamcinolone acetonide 0.1 % 1 applic topical DAILY #30 grams 05/11/24 topical cream losartan 100 See Rx Instructions .Route 06/01/24 mg-hydrochlorothiazide 25 mg tablet .COMPLEX #90 tabs metformin 500 mg tablet See Rx Instructions .Route 06/01/24 .COMPLEX #90 tabs Manual wheelchair #1 ea 06/04/24 sucralfate 1 gram tablet 1 g PO BID #120 tabs 07/23/24 ondansetron HCl 4 mg tablet 4 mg PO Q8H PRN nausea and 08/04/24 vomiting #30 tabs ropinirole 1 mg tablet See Rx Instructions .Route 09/04/24 .COMPLEX #90 tabs prednisone 20 mg tablet 20 mg PO DAILY #15 tabs 09/11/24 carisoprodol 350 mg tablet 350 mg PO BID PRN muscle pain #30 09/21/24 tabs hydrocodone 5 mg-acetaminophen 325 1 tab PO Q6H 1 month #120 tabs 10/03/24 mg tablet Allergies Allergy/AdvReac Type Severity Reaction Status Date / Time clarithromycin (From Biaxin) Allergy Severe swells Verified 09/25/24 14:44 metoclopramide (From Reglan) Allergy Unknown UNKNOWN Verified 09/25/24 14:44 atorvastatin Allergy ADR-Muscle Verified 09/25/24 14:44 Pain buspirone (From BuSpar) Allergy chest pain Verified 09/25/24 14:44 metronidazole (From Flagyl) Allergy ADR-Abdominal Verified 09/25/24 14:44 Pain Penicillins Allergy Unknown Verified 09/25/24 14:44 tetracycline Allergy Unknown Verified 09/25/24 14:44 Review of Systems General: Reports: 10 or more systems reviewed and unremarkable except in HPI and below Const: Denies: fever(s), chills or malaise Eyes: Denies: change in vision or blurry vision ENMT: Denies: throat pain or mouth pain Card: Denies: chest pain or palpitations Resp: Denies: dyspnea or non-productive cough GI: Denies: abdominal pain, nausea or vomiting : Denies: flank pain or difficulty voiding Musc: Reports: neck pain, back pain and extremity pain; Denies: limited range of motion Skin/Breast: Denies: rash or pruritus Neuro: Reports: dizziness; Denies: headache(s) or numbness in extremities Psych: Denies: anxiety or depression Endo: Denies: polyuria or polydipsia PFSH ED PFSH: Medical History Hyperlipidemia associated with type 2 diabetes mellitus Essential hypertension Subacromial impingement of left shoulder Tear of biceps tendon Acromioclavicular joint arthritis COVID-19 Sleep apnea Hypertension Thyroid cancer Surgical History H/O shoulder surgery Left - Dec 2022 History of eye surgery History of excision of mass (07/16/21) Status post colonoscopy History of esophagogastroduodenoscopy History of liver biopsy S/P angiogram of extremity H/O neck surgery Repeat cervical spine surgery on 03/15/22 H/O: hysterectomy H/O carpal tunnel repair H/O knee surgery History of appendectomy Hx laparoscopic cholecystectomy Family History Other Cancer Social History Smoking and tobacco/nicotine status: never used tobacco/nicotine Alcohol intake: never Substance/Drug Use: never Physical Exam Const: COMMON NORMALS: no acute distress, average body habitus and patient oriented x3 EXAM LIMITATIONS: no altered mental status and no behavioral limitations GENERAL APPEARANCE: cooperative ORIENTATION/CONSCIOUSNESS: Yes awake, Yes oriented to person, Yes oriented to place and Yes oriented to time HENMT: COMMON NORMALS: normocephalic HEAD & SCALP: normocephalic and abrasion left temporal Head abrasion size: 2.5 cm HEAD IMAGES:  1. superficial laceration FACE & SINUS: normal facial exam and sinuses nontender MOUTH: Normal oral and palatal mucosa present and tongue normal; no mouth trauma THROAT: posterior oropharynx normal Eye: COMMON NORMALS: Equal, round and reactive pupils present, EOMs intact bilaterally and no scleral icterus PUPIL: Yes Equal, round and reactive pupils present Neck/C-Spine: GENERAL: Yes normal visual inspection Lymph: LYMPHATIC: no lymphadenopathy noted Chest: COMMONS NORMALS: normal inspection of the chest and normal palpation of entire chest wall Resp: COMMON NORMALS: normal respiratory effort, No retractions and clear to auscultation bilaterally EFFORT & INSPECTION: Yes able to speak in complete sentences AUSCULTATION: clear to auscultation bilaterally Cardio: COMMON NORMALS: regular rate and regular rhythm RATE: regular rate RHYTHM: regular rhythm GI: COMMON NORMALS: Normal to inspection, nondistended, normoactive bowel sounds present, Soft to palpation and non-tender AUSCULTATION: Yes normoactive bowel sounds PALPATION: Yes Soft to palpation : COMMON NORMALS: Yes no CVA tenderness BLADDER/KIDNEY EXAM: Yes no CVA tenderness Back/Pelvis: COMMON NORMALS: no CVA tenderness LUMBAR SPINE/LOWER BACK: Yes normal to inspection, Yes lumbar ROM normal, No ROM limited, No straight leg raise positive right and No straight leg raise positive left PELVIS: Yes buttocks normal SACROILIAC JOINTS: Yes SI joint(s) abnormal SI joint details: tender to palpation (trace tenderness right) Extremity: COMMON NORMALS: capillary refill normal LEFT LOWER EXTREMITY: Yes knee joint Left knee: Yes inspection (ecchymosis distal to knee), Yes palpation (mild tenderness) and Yes ROM (decreased due to pain) Neuro: COMMON NORMALS: patient oriented x3 and CN's II-XII intact bilaterally SENSORIUM/ORIENTATION: Yes oriented to person, Yes oriented to place and Yes oriented to time Procedures Laceration Laceration 1: Site: face Side (If applicable): right Size (cm): 2.5 Description: linear Depth: simple, single layer Pre-repair: wound explored and irrigated extensively Skin layer closed with: other (Dermabond) Course Reevaluation(s): Reevaluation #1: Patient now complains of pain in her left knee. There appears to be a superficial contusion just distal to the patella. Will check x-ray. Vital Signs: Vital signs: Vital Signs Temperature 98.3 F 10/05/24 20:05 Pulse Rate 76 10/05/24 22:42 Respiratory Rate 18 10/05/24 22:30 Blood Pressure 134/75 10/05/24 22:42 Pulse Oximetry 97 10/05/24 22:42 Oxygen Delivery Me thod Room Air 10/05/24 22:30 sittin/80 Standin/66 MDM - Fall Medical Decision Making Patient is a 69-year-old female with multiple medical issues on HCTZ, with orthostatic positive vital signs. I will have her hold her losartan/HCTZ until she follows up with primary care next week. Her superficial laceration has been repaired with Dermabond. Head CT/cervical spine is negative for acute injury. Lab Data 10/05/24 20:33 10/05/24 20:33 Radiology Impressions Shoulder X-Ray 10/05/24 20:09 IMPRESSION: As above. Cervical Spine CT 10/05/24 20:10 IMPRESSION: No acute injury. Chest X-Ray 10/05/24 20:10 IMPRESSION: No acute findings. Head CT 10/05/24 20:10 IMPRESSION: No acute intracranial injury. Knee X-Ray 10/05/24 21:40 IMPRESSION: No acute findings. Laboratory Results WBC 9.84 10^3/uL (3.29-11.43) 10/05/24 20: RBC 4.23 10^6/uL (3.85-5.65) 10/05/24 20:33 Hgb 13.30 g/dL (11.27-16.99) 10/05/24 20:33 Hct 39.2 % (36-47) 10/05/24 20: MCV 92.7 fl (85-98) 10/05/24 20: MCH 31.4 pg (27-33) 10/05/24 20: MCHC 33.9 g/dL (30-55) 10/05/24 20: RDW 12.3 % (12.1-15.1) 10/05/24 20: Plt Count 278 10^3/cmm (157-399) 10/05/24 20: MPV 8.6 fL (7.4-10.4) 10/05/24 20: Neut % (Auto) 61.1 % 10/05/24 20: Lymph % (Auto) 29.3 % 10/05/24 20: [place] % (Auto) 6.9 % 10/05/24: Eos % (Auto) 1.8 % 10/05/24: Baso % (Auto) 0.4 % 10/05/24: Neut # (Auto) 6.01 10^3/uL (1.8-7.7) 10/05/24: Lymph # (Auto) 2.9 10^3/uL (0.8-4.8) 10/05/24: [place] # (Auto) 0.7 10^3/uL (0.2-0.9) 10/05/24: Eos # (Auto) 0.2 10^3/uL (0.0-0.8) 10/05/24: Baso # (Auto) 0.0 10^3/uL (0.0-0.1) 10/05/24 Nucleated RBC % (auto) 0 % 10/05/24 Nucleated RBCs # 0.0 /100WBC 10/05/24: Sodium 134 mmol/L (136-145) L 10/05/24: Potassium 4.3 mmol/L (3.5-5.1) 10/05/24: Chloride 96 mmol/L (98-107) L 10/05/24: Carbon Dioxide 25 mmol/L (22-29) 10/05/24: Anion Gap 17.3 (5-19) 10/05/24: BUN 22 mg/dL (8-23) 10/05/24: Creatinine 1.3 mg/dL (0.5-0.9) H 10/05/24: GFR Calculation 40.7 mL/min (90-130) L 10/05/24: Glucose 105 mg/dL (65-115) 10/05/24: Calculated Osmolality 282 mOsm/kg (285-295) L 10/05/24: Calcium 9.7 mg/dL (8.5-10.5) 10/05/24: Magnesium 1.8 mg/dL (1.7-2.3) 10/05/24: Total Bilirubin 0.2 mg/dL (0.15-1.2) 06/20/25 20:33 AST 14 U/L (0-32) 10/05/24 20:33 ALT 20 U/L (0-33) 10/05/24 20:33 Alkaline Phosphatase 91 U/L (35-105) 10/05/24 20:33 Troponin T Baseline 10 ng/L (0-10) 10/05/24 20:33 Total Protein 6.8 g/dL (6.6-8.7) 10/05/24 20:33 Albumin 4.2 g/dL (3.5-5.2) 10/05/24 20:33 Globulin 2.6 g/dL (1.3-4.6) 10/05/24 20: TSH 2.10 uIU/mL (0.27-4.20) 10/05/24 20:33 All radiology interpretation(s) finalized by discharge Discharge Plan Discharge Patient Disposition: Home Clinical Impression: Orthostasis Syncope Qualifiers: Syncope type: heat syncope Encounter type: initial encounter Qualified Code(s): T67.1XXA - Heat syncope, initial encounter Contusion of knee, left Qualifiers: Encounter type: initial encounter Qualified Code(s): S80.02XA - Contusion of left knee, initial encounter Contusion of left shoulder Qualifiers: Encounter type: initial encounter Qualified Code(s): S40.012A - Contusion of left shoulder, initial encounter Laceration of eyebrow, left Qualifiers: Encounter type: initial encounter Qualified Code(s): S01.112A - Laceration without foreign body of left eyelid and periocular area, initial encounter Condition: Stable Prescriptions: No Action citalopram [Celexa] 40 mg tablet 40 mg PO DAILY aspirin 81 mg tablet,delayed release (DR/EC) 81 mg PO DAILY cholecalciferol (vitamin D3) 125 mcg (5,000 unit) capsule 125 mcg PO DAILY ferrous sulfate 325 mg (65 mg iron) tablet 325 mg PO DAILY omega-3 fatty acids 500 mg capsule 500 mg PO DAILY Claritin-D 12 Hour 5-120 mg tablet extended release 12 hr 1 tab PO Q12H PRN (Reason: allergy symptoms) Qty: 30 3RF prednisone 20 mg tablet 20 mg PO DAILY Qty: 15 0RF Rx Instructions: 60mg for three days,40mg for two days,20mg for two days levothyroxine 175 mcg tablet 175 mcg PO DAILY nitroglycerin 0.4 mg tablet, sublingual 0.4 mg sublingual Q5M PRN (Reason: chest pain) Qty: 20 3RF Rx Instructions: do not exceed 3 doses per episode pantoprazole 20 mg tablet,delayed release (DR/EC) 20 mg PO BID Qty: 180 3RF carvedilol 12.5 mg tablet See Rx Instructions .ROUTE .COMPLEX Qty: 180 3RF Dose Instruction: TAKE 1 TABLET BY MOUTH TWICE DAILY Rx Instructions: TAKE 1 TABLET BY MOUTH TWICE DAILY B12 Active 1,000 mcg tablet,chewable 500 mcg PO DAILY triamcinolone acetonide 0.1 % cream 1 applic topical DAILY Qty: 30 6RF losartan-hydrochlorothiazide 100-25 mg tablet See Rx Instructions .ROUTE .COMPLEX Qty: 90 3RF Dose Instruction: TAKE 1 TABLET BY MOUTH EVERY DAY Rx Instructions: TAKE 1 TABLET BY MOUTH EVERY DAY metformin 500 mg tablet See Rx Instructions .ROUTE .COMPLEX Qty: 90 3RF Dose Instruction: TAKE 1 TABLET BY MOUTH EVERY DAY Rx Instructions: TAKE 1 TABLET BY MOUTH EVERY DAY (DME) Manual wheelchair See Rx Instructions .Route .MEDSUPPLY Qty: 1 0RF Rx Instructions: As directed sucralfate 1 gram tablet 1 g PO BID Qty: 120 3RF ondansetron HCl 4 mg tablet 4 mg PO Q8H PRN (Reason: nausea and vomiting) Qty: 30 6RF ropinirole 1 mg tablet See Rx Instructions .ROUTE .COMPLEX Qty: 90 1RF Dose Instruction: TAKE 1 TABLET BY MOUTH EVERY EVENING NEEDED Rx Instructions: TAKE 1 TABLET BY MOUTH EVERY EVENING NEEDED carisoprodol 350 mg tablet 350 mg PO BID PRN (Reason: muscle pain) Qty: 30 1RF hydrocodone-acetaminophen 5-325 mg tablet 1 tab PO Q6H 30 Days Qty: 120 0RF vitamin B complex Tablet Extended Release 1 tab PO DAILY latanoprost [Xalatan] 0.005 % drops 1 drp ophthalmic (eye) BEDTIME bupropion HCl 150 mg tablet extended release 24 hr PO Discharge Orders: Discharge ED (Routine); Ordered 10/05/24 Ordered By: Tea Geller Referrals: Gus Booker MD [Primary Care Provider, Family Practice] Patient Instructions: Hypotension (ED), Skin Adhesive Care (ED) Activity Restrictions/Additional Instructions: Hold your losartan/HCTZ until you follow-up with your doctor. Return to ED for further issues Do not disturb the Dermabond on your left eyebrow. Do not remove any of the scabs. This will fall out when appropriate. If redness occurs, drainage, follow-up with ER primary care. Is important you follow-up with your primary care physician given your decrease in blood pressure with standing and association of your water pill hydrochlorothiazide. Print Language: Amharic Coding Level of Care Code ED [employer] for Dennys Mendosa
[2024-10-05 21:30] VITALS: BP 96/66; PULSE 82; O2SAT 96
--- NOTE | 2024-10-05 21:40 | XRR_ITS ---
PROCEDURE INFORMATION: Exam: XR Left Knee Exam date and time: 10/05/2024 9:48 PM Age: 69 years old Clinical indication: Injury or trauma; Blunt trauma; Left; Fall with contusion to anterior aspect of knee; Additional info: Fall with contusion on re-eval TECHNIQUE: Imaging protocol: Radiologic exam of the left knee. Views: 3 views. COMPARISON: CT angio abd aorta runof [id number] 01/27/2024 9:28 AM FINDINGS: Bones/joints: No acute fracture. Moderate degenerative changes. Soft tissues: Normal. XR/XR knee LT 3V* [id number] IMPRESSION: No acute findings.
--- NOTE | 2024-10-05 22:09 | ECG_ITS ---
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 Measurements Intervals [place] Rate: 82 P: 61 GA: 167 QRS: 1 QRSD: 94 T: 64 QT: 362 QTc: 425 Interpretive Statements SINUS RHYTHM INCOMPLETE RIGHT BUNDLE BRANCH BLOCK [90+ ms QRS DURATION, TERMINAL R IN V1/V2, 40+ ms S IN I/aVL/V4/V5/V6] MINIMAL VOLTAGE CRITERIA FOR LVH, CONSIDER NORMAL VARIANT [MEETS CRITERIA IN ONE OF: R(aVL), S(V1), R(V5), R(V5/V6)+S(V1)] POSSIBLE ANTERIOR MYOCARDIAL INFARCTION , PROBABLY OLD [30 ms Q WAVE IN V3/V4, OR R < 0.2 mV IN V4] Compared to ECG 09/25/2024 15:31:52 Incomplete right bundle-branch block now present Myocardial infarct finding now present T-wave abnormality no longer present Electronically Signed On 10-07-2024 19:36:57 CDT by Megan Harrison M.D. [email or web address] [id number]
--- NOTE | 2024-10-05 22:16 | ECG_ITS ---
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 Measurements Intervals [place] Rate: 74 P: 42 IN: 170 QRS: 4 QRSD: 97 T: 63 QT: 389 QTc: 433 Interpretive Statements SINUS RHYTHM POSSIBLE RIGHT VENTRICULAR CONDUCTION DELAY [RSR (QR) IN V1/V2] MINIMAL VOLTAGE CRITERIA FOR LVH, CONSIDER NORMAL VARIANT [MEETS CRITERIA IN ONE OF: R(aVL), S(V1), R(V5), R(V5/V6)+S(V1)] NONSPECIFIC T-WAVE ABNORMALITY Compared to ECG 10/05/2024 20:06:20 T-wave abnormality now present Incomplete right bundle-branch block no longer present Myocardial infarct finding no longer present Electronically Signed On 10-07-2024 19:36:41 CDT by Megan Harrison M.D. [email or web address] [id number]
[2024-10-05 22:30] VITALS: BP 134/75; PULSE 75; RESP 18; O2SAT 97
[2024-10-05] MEDS: tetanus-dipt-pertussis 0.5 mL SDV IM (22:31)
[2024-10-05 22:42] VITALS: BP 134/75; PULSE 76; O2SAT 97
== END 2024-10-05 22:43 | disposition home or self-care (01) ==
PROVIDERS: Emergency Provider Physician Assistant; PCP Family Medicine
DX: I95.1 Orthostatic hypotension (principal); T67.1XXA Heat syncope, initial encounter; S80.02XA Contusion of left knee, initial encounter; S40.012A Contusion of left shoulder, initial encounter; S01.112A Laceration without foreign body of left eyelid and periocular area, initial encounter; Z79.82 Long term (current) use of aspirin; Z79.84 Long term (current) use of oral hypoglycemic drugs; E78.5 Hyperlipidemia, unspecified; I10 Essential (primary) hypertension; Z85.850 Personal history of malignant neoplasm of thyroid; W19.XXXA Unspecified fall, initial encounter
CPT/HCPCS: 12011; 36415; 70450; 71045; 72125; 73030; 73562; 80053; 83735; 84443; 84484; 85025; 90715; 93005; 99285

== ENCOUNTER → 2024-10-09 14:23 | Outpatient (BNVA) | payer MEDICARE, OTHER, SELFPAY | PROVIDERS: PCP Family Medicine; Visit Provider Orthopaedic Surgery | DX: Z98.890 Other specified postprocedural states (principal); W19.XXXA Unspecified fall, initial encounter; M54.2 Cervicalgia | CPT/HCPCS: 72050; 72100; 99213 ==

== ENCOUNTER → 2024-10-10 11:11 | Outpatient (BNVA) | payer MEDICARE, OTHER, SELFPAY | PROVIDERS: PCP Family Medicine; Visit Provider Physician Assistant | DX: S40.012A Contusion of left shoulder, initial encounter (principal); M75.41 Impingement syndrome of right shoulder; Z98.890 Other specified postprocedural states; M19.012 Primary osteoarthritis, left shoulder; W19.XXXA Unspecified fall, initial encounter | CPT/HCPCS: 73030; 99213 ==

== ENCOUNTER 2024-10-25 14:30 | Outpatient (CLI) | payer MEDICARE, SELFPAY ==
--- NOTE | 2024-10-25 14:30 | MR_ITS ---
WS: [id number] MRI CERVICAL SPINE NONCONTRAST TECHNIQUE: Sagittal T1, T2 and STIR imaging. Axial T2, gradient, and fiesta imaging. CLINICAL INFORMATION: cervical pain COMPARISON: CT cervical spine 10/05/2024 FINDINGS: Straightening of the normal cervical lordosis. Prior postoperative changes ACDF C4-C6. No high-grade central canal stenosis. Cord signal is normal. C2-C3: Moderate facet arthropathy. Mild LEFT foraminal narrowing. Spinal canal is patent. C3-C4: Mild disc bulge with mild central canal stenosis. Moderate facet arthropathy. Mild LEFT greater than RIGHT foraminal narrowing. C4-C5: Postoperative changes ACDF. Spinal canal is patent. Moderate bilateral bony foraminal narrowing. C5-C6: Postoperative changes ACDF. Spinal canal is patent. Moderate to severe LEFT bony foraminal narrowing. Mild facet arthropathy. C6-C7: Postoperative changes ACDF. Severe RIGHT and mild LEFT bony foraminal narrowing. Uncovertebral joint hypertrophy. Spinal canal is patent. C7-T1: Moderate to severe LEFT proximal bony foraminal narrowing with uncovertebral joint hypertrophy. Mild RIGHT bony foraminal narrowing. Spinal canal is patent. Mild central disc bulging. Visualized brain stem structures: Normal. Prevertebral soft tissues: Normal. MR/MR cervical spin wo con* [id number] IMPRESSION: 1. Straightening of the normal cervical lordosis with prior C4-C6 ACDF. 2. Severe RIGHT C6-7 bony foraminal narrowing with RIGHT eccentric uncovertebr al joint hypertrophy also seen on the prior CT. 3. Moderate to severe LEFT C7-T1 bony foraminal narrowing. 4. Moderate bilateral C4-5 bony foraminal narrowing with moderate facet arthro teofilo and uncovertebral joint hypertrophy. 5. Moderate to severe LEFT C5-6 bony foraminal narrowing. 6. Mild central canal stenosis C3-4 with a shallow central protrusion.
== END 2024-10-25 14:31 | disposition home or self-care (01) ==
PROVIDERS: PCP Family Medicine; Visit Provider Orthopaedic Surgery
DX: M47.812 Spondylosis without myelopathy or radiculopathy, cervical region (principal); M48.02 Spinal stenosis, cervical region; M48.07 Spinal stenosis, lumbosacral region; Z98.1 Arthrodesis status
CPT/HCPCS: 72141

== ENCOUNTER → 2024-11-01 14:55 | Outpatient (BNVA) | payer MEDICARE, OTHER, SELFPAY | PROVIDERS: PCP Family Medicine; Visit Provider Orthopaedic Surgery | DX: Z98.890 Other specified postprocedural states (principal); M54.2 Cervicalgia; Z09 Encounter for follow-up examination after completed treatment for conditions other than malignant neoplasm | CPT/HCPCS: 99213 ==

== ENCOUNTER → 2024-11-13 15:29 | Outpatient (BNVA) | payer MEDICARE, SELFPAY | PROVIDERS: PCP Family Medicine; Visit Provider Family Medicine | DX: Z51.81 Encounter for therapeutic drug level monitoring (principal); E11.9 Type 2 diabetes mellitus without complications; Z13.6 Encounter for screening for cardiovascular disorders; E53.8 Deficiency of other specified B group vitamins | CPT/HCPCS: 80053; 80061; 82607; 83036; 85025 ==

== ENCOUNTER → 2024-11-14 13:52 | Outpatient (BNVA) | payer MEDICARE, SELFPAY | PROVIDERS: PCP Family Medicine; Visit Provider Physician Assistant | DX: M75.41 Impingement syndrome of right shoulder (principal); Z98.890 Other specified postprocedural states | CPT/HCPCS: 20610; 99213; J3301; J9999 ==

== ENCOUNTER → 2025-01-31 14:23 | Outpatient (BNVA) | payer MEDICARE, SELFPAY | PROVIDERS: PCP Family Medicine; Visit Provider Orthopaedic Surgery | DX: Z47.89 Encounter for other orthopedic aftercare (principal); Z98.890 Other specified postprocedural states; M48.062 Spinal stenosis, lumbar region with neurogenic claudication | CPT/HCPCS: 72100; 99213 ==

== ENCOUNTER 2025-02-19 10:08 | Outpatient (CLI) | payer MEDICARE, SELFPAY ==
--- NOTE | 2025-02-19 10:14 | MR_ITS ---
WS: [id number] MRI LUMBAR SPINE NONCONTRAST HISTORY: LOW BACK PAIN, history of lumbar decompression 08/24/2024. Fall with pain. COMPARISON: 06/28/2024 TECHNIQUE: Sagittal and axial multisequence imaging is submitted. Cervical fusion C4-C6. Normal lumbar alignment with no compression fractures or marrow edema. Disc spaces and vertebral body heights are well-preserved. Conus terminates normally at L1-2 disc level. L1-L2: Normal. L2-L3: Minimal disc bulging. No stenosis. L3-L4: Mild annular disc bulging with mild facet and ligamentum flavum hypertrophy. Shallow LEFT foraminal disc protrusion. No significant stenosis. L4-L5: Diffuse annular disc bulging with facet and ligamentum flavum hypertrophy. RIGHT hemilaminectomy defect. Mild central and subarticular recess and RIGHT foraminal stenosis. Small disc osteophyte in the RIGHT foramen is unchanged. L5-S1: Mild facet arthritis. No stenosis. Paravertebral soft tissues are normal. MR/MR lumbar spine wo con* [id number] IMPRESSION: 1. Status post RIGHT hemilaminectomy defect at L4-5 since the prior study. Pos tsurgical soft tissue changes along the RIGHT hemilaminectomy defect. 2. Mild central, subarticular recess and RIGHT foraminal stenosis persists, un changed since 06/28/2024. 3. No new disc protrusions or stenosis. 4. Shallow LEFT foraminal disc protrusion at L3-4. No stenosis.
== END 2025-02-19 10:09 | disposition home or self-care (01) ==
LOC: RAD 10:09
PROVIDERS: PCP Family Medicine; Visit Provider Orthopaedic Surgery
DX: M48.061 Spinal stenosis, lumbar region without neurogenic claudication (principal); R93.7 Abnormal findings on diagnostic imaging of other parts of musculoskeletal system; Z98.890 Other specified postprocedural states; W19.XXXA Unspecified fall, initial encounter; M43.22 Fusion of spine, cervical region; M51.369 Other intervertebral disc degeneration, lumbar region without mention of lumbar back pain or lower extremity pain; M47.896 Other spondylosis, lumbar region; M24.28 Disorder of ligament, vertebrae; M25.78 Osteophyte, vertebrae; M47.897 Other spondylosis, lumbosacral region
CPT/HCPCS: 72148

== ENCOUNTER → 2025-02-26 13:28 | Outpatient (BNVA) | payer MEDICARE, SELFPAY | PROVIDERS: PCP Family Medicine; Visit Provider Orthopaedic Surgery | DX: Z01.818 Encounter for other preprocedural examination (principal); M48.062 Spinal stenosis, lumbar region with neurogenic claudication | CPT/HCPCS: 36415; 80053; 81001; 85025; 99214 ==

== ENCOUNTER 2025-03-06 10:51 | Day surgery (SDC) | payer MEDICARE, SELFPAY ==
[2025-03-06] VITALS (9 sets, daily range): BP systolic 107–143; BP diastolic 57–91; PULSE 64–70; RESP 17–18; TEMP 36.5–36.8; O2SAT 94–100; BMI 36.0
--- NOTE | 2025-03-06 11:21 | ANES.PREANE2 ---
Pre-Anesthetic Assessment Height/Weight: Height 5 ft 7 in Preop Diagnosis: Lumbar stenosis neurogenic claudication Operation Date: 03/06/25 12:40 Proposed Procedures p Lumbar Spine Decompression(Not Applicable) - Camilo Ansari, DO Was Beta Masha taken within 24 hours: Yes Was Clonidine taken within 24 hours: N/A Social No alcohol and No tobacco Exam alert, oriented x 3, clear to auscultation bilaterally and regular rate & rhythm Airway Submandibular: within normal limits Cervical ROM: within normal limits Mallampati: Class III Anesthetic Plan ASA status: 3 Anesthesia: General Other: No prior issues with anesthesia NPO since yesterday evening History of hypertension on carvedilol and losartan GERD on Protonix Type 2 diabetes on metformin Labs reviewed 02/26/2025 acceptable for procedure today Prior EKG showing sinus rhythm with LVH Plan for GETA Medications/Allergies Home Medications ?Medication ?Instructions ?Recorded ?Confirmed ?Last Taken ?Type aspirin 81 mg tablet,delayed 81 mg PO DAILY 01/02/20 03/06/25 03/02/25 History release Held on 08/24/24. Instructions: Resume on 08/26/24. cholecalciferol (vitamin D3) 125 125 mcg PO DAILY 01/02/20 03/06/25 03/05/25 History mcg (5,000 unit) capsule ferrous sulfate 325 mg (65 mg 325 mg PO DAILY 07/14/21 03/06/25 08/23/24 10:30 History iron) tablet omega-3 fatty acids 500 mg capsule 500 mg PO DAILY 07/14/21 03/06/25 03/02/25 History vitamin B complex 1 tab PO DAILY 07/15/21 03/06/25 08/22/24 10:00 History levothyroxine 175 mcg tablet 175 mcg PO DAILY 03/30/23 03/06/25 03/05/25 History latanoprost 0.005 % eye drops 1 drp ophthalmic (eye) BEDTIME 09/06/23 03/06/25 03/05/25 History (Xalatan) nitroglycerin 0.4 mg sublingual 0.4 mg sublingual Q5M PRN chest 01/19/24 03/06/25 08/22/24 10:00 Rx tablet pain #20 tabs loratadine 5 mg-pseudoephedrine ER 1 tab PO Q12H PRN allergy symptoms 03/22/24 03/06/25 03/06/25 Rx 120 mg tablet,extended #30 tabs release,12hr (Claritin-D 12 Hour) triamcinolone acetonide 0.1 % 1 applic topical DAILY #30 grams 05/11/24 03/06/25 08/22/24 10:00 Rx topical cream Manual wheelchair #1 ea 06/04/24 03/06/25 Unknown Rx sucralfate 1 gram tablet 1 g PO BID #120 tabs 07/23/24 03/06/25 03/05/25 Rx ondansetron HCl 4 mg tablet 4 mg PO Q8H PRN nausea and 08/04/24 03/06/25 03/06/25 Rx vomiting #30 tabs fluoxetine #1 ea 12/26/24 03/06/25 Unknown Rx pantoprazole 20 mg tablet,delayed 20 mg PO BID #180 tabs 12/27/24 03/06/25 03/06/25 Rx release carisoprodol 350 mg tablet 350 mg PO BID PRN muscle pain #30 01/03/25 03/06/25 Unknown Rx tabs losartan 100 mg tablet 100 mg PO DAILY #30 tabs 01/24/25 03/06/25 03/03/25 Rx dicyclomine 10 mg capsule 10 mg PO BID PRN abdominal pain 02/12/25 03/06/25 Unknown Rx #60 caps hydrocodone 5 mg-acetaminophen 325 1 tab PO Q6H 1 month #120 tabs 03/04/25 03/06/25 03/06/25 Rx mg tablet carvedilol 12.5 mg tablet 12.5 mg PO BID 03/05/25 03/06/25 03/06/25 History metformin 500 mg tablet 500 mg PO DAILY 03/05/25 03/06/25 03/02/25 History ropinirole 1 mg tablet 1 mg PO DAILY 03/05/25 03/06/25 03/05/25 History Allergies Allergy/AdvReac Type Severity Reaction Status Date / Time clarithromycin (From Biaxin) Allergy Severe swells Verified 03/06/25 11:17 metoclopramide (From Reglan) Allergy Unknown ADR-Headach Verified 03/06/25 11:17 e atorvastatin Allergy ADR-Muscle Verified 03/06/25 11:17 Pain buspirone (From BuSpar) Allergy chest pain Verified 03/06/25 11:17 metronidazole (From Flagyl) Allergy ADR-Abdominal Verified 03/06/25 11:17 Pain Penicillins Allergy ALGY-Swell Verified 03/06/25 11:17 Lip/Tongue/Throat tetracycline Allergy ALGY-Swell Verified 03/06/25 11:17 Lip/Tongue/Throat PFSH Anesthesia Medical History Hyperlipidemia associated with type 2 diabetes mellitus Essential hypertension Subacromial impingement of left shoulder Tear of biceps tendon Acromioclavicular joint arthritis COVID-19 Sleep apnea Hypertension Thyroid cancer Surgical History H/O shoulder surgery Left - Dec 2022 History of eye surgery History of excision of mass (07/16/21) Status post colonoscopy History of esophagogastroduodenoscopy History of liver biopsy S/P angiogram of extremity H/O neck surgery Repeat cervical spine surgery on 03/15/22 H/O: hysterectomy H/O carpal tunnel repair H/O knee surgery History of appendectomy Hx laparoscopic cholecystectomy Family History Other Cancer Social History Smoking and tobacco/nicotine status: never used tobacco/nicotine Alcohol intake: never Substance/Drug Use: never Additional social history: Lost a child at a few months of age due to an intra-abdominal infection. Marital status: Data Anesthesia Cardiac Studies: Echocardiogram 02/16/24 Sestamibi Stress Test (Cardiology) 02/21/24
--- NOTE | 2025-03-06 11:23 | W.PM.OPSUD ---
Surgery/Procedure H&P Update DATE OF PROCEDURE: March 06, 2025 DATE H&P PERFORMED: 02/26/25 H&P UPDATE INFORMATION: I have reviewed H&P completed within last 30 days, I have examined patient prior to procedure and No changes to prior documentation PREOP DIAGNOSIS: Lumbar stenosis neurogenic claudication PLANNED PROCEDURE: Operation Date: 03/06/25 12:40 Proposed Procedures p Lumbar Spine Decompression(Not Applicable) - Camilo Ansari DO
[2025-03-06] MEDS: lidocaine-epi 1% 20 mL INJ INJECTION (14:39)
--- NOTE | 2025-03-06 15:35 | PM.OP ---
Operative Report Date of procedure: March 06, 2025 Pre-op diagnosis: 1. L4/5 facet cyst on the right 2. Lumbar stenosis with neurogenic claudication Post-op diagnosis: same Procedure done: Revision L4/5 laminectomy partial facetectomy Surgeon: Camilo Ansari DO Estimated blood loss (mL): 10 Procedure: Revision L4/5 laminectomy partial facetectomy Patient is brought to the operative suite. After undergoing anesthesia they are placed in the prone position. All areas of impingement are well padded. Patient is then prepped and draped in the normal sterile fashion. A skin incision is made over the L4/5 level. This is confirmed under c-arm guidance. A series of dilators are passed and the tubular retractor is docked on the L4 lamina. A bovie is used to clear the soft tissue off the lamina and the L 4/5 facet joint. A high speed keenan is then used to perform the laminectomy and take down the medial aspect of the L 4/5 facet joint. A kerrison rongeure was then used to take down the remaining lamina and smooth the edge of the laminectomy up to the point where the ligamentum flavum attaches. Attention was then brought to the medial aspect of the facet joint. The remaining medial aspect of the superior and inferior aspect of the facet joint were taken down with the kerrison from the pedicle of L4 to L 5. The facet joint had significant hypertrophy. Attention was then brought to the Ligamentum Flavum. The ligament was taken down from the lamina of L4 to L5 and out medially to the remaining facet joint. The ligament was thick. The dura was then exposed. The dura was in good repair. The L4 nerve was then traced with a curette out the L4/5 foramen and found to be adequately decompressed. The L5 nerve was traced with a curette around the L5 pedicle. The lateral recess was opened with a kerrison helping to further decompress the L5 nerve. Wound is then irrigated copiously with saline and surgiflo is used to stop any bleeding. The tubular retractor is removed and the wound is closed with vicryl and monocryl suture. Steri strips were applied. A sterile dressing is then placed. Patient was then placed in the supine position and transferred to the PACU in stable condition.
--- NOTE | 2025-03-06 15:38 | XR_ITS ---
WS: [id number] XR lumbar spine 1V [id number] REASON FOR EXAM: OR PIC, DECOMPRESSION FINDINGS: Surgical appliance overlies the right L4-L5 disc space. XR/XR lumbar spine 1V [id number] IMPRESSION: Intraoperative lumbar level localization as above.
--- NOTE | 2025-03-06 16:58 | ANE.PACU2 ---
Inpatient post-anesthesia follow up: Airway intact: Yes Vital signs: Temperature 98.3 F Pulse Rate 70 Respiratory Rate 18 Blood Pressure 143/75 Pulse Oximetry 94 Oxygen Delivery Me thod Room Air Oxygen Flow Rate 8 Fraction of Inspir ed Oxygen Hydration adequate: Yes Nausea and vomiting: No Pain level: 1 Mental status: Baseline
== END 2025-03-06 16:58 | disposition home or self-care (01) ==
PROVIDERS: PCP Family Medicine; Visit Provider Orthopaedic Surgery
PROC: (CPT 63005; principal; 2025-03-06 12:20)
DX: M48.062 Spinal stenosis, lumbar region with neurogenic claudication (principal); M71.38 Other bursal cyst, other site; K21.9 Gastro-esophageal reflux disease without esophagitis; I10 Essential (primary) hypertension; E11.9 Type 2 diabetes mellitus without complications; Z79.82 Long term (current) use of aspirin; Z79.891 Long term (current) use of opiate analgesic; Z79.84 Long term (current) use of oral hypoglycemic drugs; E78.5 Hyperlipidemia, unspecified; G47.30 Sleep apnea, unspecified; Z85.850 Personal history of malignant neoplasm of thyroid
CPT/HCPCS: 63047; 36416; 72020; 76000; 82962; A4649; J0131; J0330; J1100; J2250; J2405; J2704; J3010; J3490; J7030; J9999

== ENCOUNTER 2025-03-08 00:05 | Emergency (ER) | payer MEDICARE, OTHER, SELFPAY ==
[2025-03-08 00:05] VITALS: BP 167/61; PULSE 85; RESP 18; TEMP 37.1; O2SAT 95; BMI 36.0
--- OUTSIDE RECORDS SUMMARY | 2025-03-08 00:08 | XMS_ITS | Encounter Summary ---
Author Organization [facility] Address [address] [place] [address] Care Team Providers Care Preflight Mechanic Name Role Phone Gus Booker MD Primary Care Provider [phone] Encounter Details Date Type Department Care Team (Late st Contact Info) Description 02/06/2008 Outpatient Historical [facility] [address] [facility] [address] [place] [address] Social History Tobacco Use Types Packs/Day Years Used Date Smoking Tobacco: Never Assessed Comments No Sex and Gender Information Value Date Recorded Sex Assigned at Not on file Legal Sex Female 3:03 AM CHEMICAL DEPENDENCY COUNSELOR Gender Identity Not on file Sexual Orientation Not on file documented as of this encounter Plan of Treatment Not on file documented as of this encounter Visit Diagnoses Not on filedocumented in this encounter Care Teams Preflight Mechanic Relationship Specialty [place] [address] [place] [phone] PCP - General Family Practice 03/19/15 documented as of this encounter
--- OUTSIDE RECORDS SUMMARY | 2025-03-08 00:08 | XMS_ITS | Encounter Summary ---
Author Organization [facility] Address [address] [place] [address] Care Team Providers Care Automatic Mold Sander Name Role Phone Gus Booker MD Primary Care Provider [phone] Encounter Details Date Type Department Care Team (Latest Contact Info) Description 11/28/2000 Outpatient Historical [facility] [address] [facility] [address] [place] [address] Mayur Vance MD NO ADDRESS ON FILE Other screening mammogram (Primary Dx) Social History Tobacco Use Types Packs/Day Years Used Date Smoking Tobacco: Never Assessed Comments Unknown Sex and Gender Information Value Date Recorded Sex Assigned at Not on file Legal Sex Female 3:03 AM COMMUNITY PHARMACIST Gender Identity Not on file Sexual Orientation Not on file documented as of this encounter Plan of Treatment Not on file documented as of this encounter Visit Diagnoses Diagnosis Other screening mammogram- Primary documented in this encounter Care Teams Automatic Mold Sander Relationship Specialty Start Date End Date Gus Booker MD [address] [place] [phone] PCP - General Family Practice 03/19/15 documented as of this encounter
--- OUTSIDE RECORDS SUMMARY | 2025-03-08 00:08 | XMS_ITS | Encounter Summary ---
Author Organization [facility] Address [address] [place] [address] Care Team Providers Care Alarm Installation Technician Name Role Phone Gus Booker MD Primary Care Provider [phone] Encounter Details Date Type Department Care Team (Latest Contact Info) Description 03/01/[address] [facility] Psychiat[facility] [place] [address] Sanjay Nunez MD NO ADDRESS ON FILE Major depressive disorder, recurrent episode, severe, without mention of psychotic behavior (CMS/HCC) (Primary Dx) Social History Tobacco Use Types Packs/Day Years Used Date Smoking Tobacco: Never Assessed Comments Unknown Sex and Gender Information Value Date Recorded Sex Assigned at Not on file Legal Sex Female 3:03 AM GYROSCOPIC INSTRUMENT TESTER Gender Identity Not on file Sexual Orientation Not on file documented as of this encounter Plan of Treatment Not on file documented as of this encounter Visit Diagnoses Diagnosis Major depressive disorder, recurrent episode, severe, without mention of psychotic behavior (CMS/HCC)- Primary Major depressive disorder, recurrent episode, severe, without mention of psychotic behavior documented in this encounter Care Teams Alarm Installation Technician Relationship Specialty Start Date End Date Gus Booker MD [address] [place] [phone] PCP - General Family Practice 03/19/15 documented as of this encounter
--- OUTSIDE RECORDS SUMMARY | 2025-03-08 00:08 | XMS_ITS | Encounter Summary ---
Author Organization [facility] Address [address] [place] [address] Care Team Providers Care Oracle Adf Consultant Name Role Phone Gus Booker MD Primary Care Provider [phone] Encounter Details Date Type Department Care Team (Latest Contact Info) Description 12/19/2001 Outpatient Historical [facility] [place] [address] [facility] [address] [place] [address] Mayur Vance MD NO ADDRESS ON FILE SCREENING MAMM-MAILG NEOPL-OTHER (Primary Dx) Social History Tobacco Use Types Packs/Day Years Used Date Smoking Tobacco: Never Assessed Comments Unknown Sex and Gender Information Value Date Recorded Sex Assigned at Not on file Legal Sex Female 3:03 AM ANALYTICAL TECHNICIAN Gender Identity Not on file Sexual Orientation Not on file documented as of this encounter Plan of Treatment Not on file documented as of this encounter Visit Diagnoses Diagnosis Other screening mammogram- Primary documented in this encounter Care Teams Oracle Adf Consultant Relationship Specialty Start Date End Date uGs Booker MD [address] [place] [phone] PCP - General Family Practice 03/19/15 documented as of this encounter
--- OUTSIDE RECORDS SUMMARY | 2025-03-08 00:08 | XMS_ITS | Encounter Summary ---
Author Organization [facility] Address [address] [place] [address] Care Team Providers Care Life Skills Instructor Name Role Phone Gus Booker MD Primary Care Provider [phone] Encounter Details Date Type Department Care Team (Late st Contact Info) Description 03/26/2008 Outpatient Historical [facility] [address] [place] [address] Macho Jones MD NO ADDRESS ON FILE Social History Tobacco Use Types Packs/Day Years Used Date Smoking Tobacco: Never Assessed Comments No Sex and Gender Information Value Date Recorded Sex Assigned at Not on file Legal Sex Female 3:03 AM SUPERVISOR TITLE Gender Identity Not on file Sexual Orientation Not on file documented as of this encounter Plan of Treatment Not on file documented as of this encounter Procedures Procedure Name Priority Date/Time Associated Diagnosis Comments NM THYROID CA METS WB POST THER Routine 03/27/2008 9:15 AM SUPERVISOR TITLE documented in this encounter Results * NM THYROID CA METS WB POST THER (03/27/2008 9:15 AM SUPERVISOR TITLE) Anatomical Region Laterality Modality Neck Other 03/27/2008 9:15 AM SUPERVISOR TITLE Narrative 03/28/2008 9:11 AM SUPERVISOR TITLE Radionuclide Thyroid Carcinoma Metastasis Whole Body Imaging Examination: Radiopharmaceutical: I-123 sodium iodide Dose: 1.99 mCi Reason for Consultation: Residual/recurrent thyroid carcinoma one year status post re-ablation therapy for restaging evaluation This examination is performed on an exogenous TSH stimulation protocol. Whole body imaging was obtained in anterior and posterior projections at 24 hours with additional high resolution images of the anterior head, neck, and chest regions. FINDINGS: Compared with the prior post therapy examination of 02/10/2007 which demonstrated neck and liver tracer accumulation consistent with residual tissue in the neck. Today's examination demonstrates physiologic tracer distribution in the gastrointestinal tract and urinary bladder with resolution of previous midline neck activity. Impression: Negative examination with resolution of previous findings as above. - Dictated By: Ajith Ji M.D. Electronically Signed By: Ajith Ji M.D. Date Signed: 03/28/08 Procedure Note Ajith Ji MD - 03/28/2008 Radionuclide Thyroid Carcinoma Metastasis Whole Body ImagingExamination: Radiopharmaceutical: I-123 sodium iodide Dose: 1.99 mCi Reason for Consultation: Residual/recurrent thyroid carcinoma one yearstatus post re-ablation therapy for restaging evaluation This examination is performed on an exogenous TSH stimulation protocol.Whole body imaging was obtained in anterior and posterior projections at 24 hours with additional highresolution images of the anterior head, neck, and chest regions. FINDINGS: Compared with the prior posttherapy examination of 02/10/2007 which demonstrated neck and liver tracer accumulation consistent withresidual tissue in the neck. Today's examination demonstrates physiologic tracer distribution in thegastrointestinal tract and urinary bladder with resolution of previous midline neck activity. Impression: Negative examination with resolution of previous findings as above. - Dictated By: Ajith Ji M.D. Electronically Signed By: Ajith Ji M.D. Date Signed: 03/28/08 Macho Jones MD NM ORDERABLES Final Result documented in this encounter Visit Diagnoses Not on filedocumented in this encounter Care Teams Life Skills Instructor Relationship Specialty Start Date End Date Gus Booker MD [address] [place] [phone] PCP - General Family Practice 03/19/15 documented as of this encounter
--- OUTSIDE RECORDS SUMMARY | 2025-03-08 00:08 | XMS_ITS | Encounter Summary ---
Author Organization [facility] Address [address] [place] [address] Care Team Providers Care Automatic Spinning Lathe Setter Name Role Phone Gus Booker MD Primary Care Provider [phone] Encounter Details Date Type Department Care Team (Latest Contact Info) Description 12/22/2004 Outpatient [facility] [address] [place] [address] Rosa Jack MD NO ADDRESS ON FILE SCREENING MAMM-MAILG NEOPL NEC (Primary Dx) Social History Tobacco Use Types Packs/Day Years Used Date Smoking Tobacco: Never Assessed Comments Unknown Sex and Gender Information Value Date Recorded Sex Assigned at Not on file Legal Sex Female 3:03 AM CARCASS WASHER Gender Identity Not on file Sexual Orientation Not on file documented as of this encounter Plan of Treatment Not on file documented as of this encounter Visit Diagnoses Diagnosis Other screening mammogram- Primary documented in this encounter Care Teams Automatic Spinning Lathe Setter Relationship Specialty Start Date End Date Gus Booker MD [address] [place] [phone] PCP - General Family Practice 03/19/15 documented as of this encounter
--- OUTSIDE RECORDS SUMMARY | 2025-03-08 00:08 | XMS_ITS | Encounter Summary ---
Author Organization [facility] Address [address] [place] [address] Care Team Providers Care Machine Pan Greaser Name Role Phone Gus Booker MD Primary Care Provider [phone] Encounter Details Date Type Department Care Team (Latest Contact Info) Description 12/10/2003 Outpatient [facility] [address] [place] [address] Rosa Jack MD NO ADDRESS ON FILE SCREENING MAMM-MAILG NEOPL-OTHER (Primary Dx) Social History Tobacco Use Types Packs/Day Years Used Date Smoking Tobacco: Never Assessed Comments Unknown Sex and Gender Information Value Date Recorded Sex Assigned at Not on file Legal Sex Female 3:03 AM NATURAL FOODS CLERK Gender Identity Not on file Sexual Orientation Not on file documented as of this encounter Plan of Treatment Not on file documented as of this encounter Visit Diagnoses Diagnosis Other screening mammogram- Primary documented in this encounter Care Teams Machine Pan Greaser Relationship Specialty Start Date End Date Gus Booker MD [address] [place] [phone] PCP - General Family Practice 03/19/15 documented as of this encounter
--- OUTSIDE RECORDS SUMMARY | 2025-03-08 00:08 | XMS_ITS | Encounter Summary ---
Author Organization [facility] Address [address] [place] [address] Care Team Providers Care Healthcare Or Medical Name Role Phone Gus Booker MD Primary Care Provider [phone] Encounter Details Date Type Department Care Team (Late st Contact Info) Description 05/11/2001 Outpatient Historical [facility] N[facility] [address] [place] [address] [place] [address] Social History Tobacco Use Types Packs/Day Years Used Date Smoking Tobacco: Never Assessed Comments Unknown Sex and Gender Information Value Date Recorded Sex Assigned at Not on file Legal Sex Female 3:03 AM TRAY SERVICE WORKER Gender Identity Not on file Sexual Orientation Not on file documented as of this encounter Plan of Treatment Not on file documented as of this encounter Visit Diagnoses Not on filedocumented in this encounter Care Teams Healthcare Or Medical Relationship Specialty Start Date End Date Gus Booker MD [address] [place] [phone] PCP - General Family Practice 03/19/15 documented as of this encounter
--- OUTSIDE RECORDS SUMMARY | 2025-03-08 00:08 | XMS_ITS | Encounter Summary ---
Author Organization [facility] Address [address] Saldaña: [place] [address] Care Team Providers Care [employer] Vice Principal Name Role Phone Gus Booker MD Primary Care Provider [phone] Encounter Details Date Type Department Care Team (Late st Contact Info) Description 12/19/2001 Outpatient Historical Rosa Jack MD NO ADDRESS ON FILE Social History Tobacco Use Types Packs/Day Years Used Date Smoking Tobacco: Never Assessed Comments Unknown Sex and Gender Information Value Date Recorded Sex Assigned at Not on file Legal Sex Female 3:03 AM FISH PACKER Gender Identity Not on file Sexual Orientation Not on file documented as of this encounter Plan of Treatment Not on file documented as of this encounter Visit Diagnoses Not on filedocumented in this encounter Care Teams High School Vice Principal Relationship Specialty Start Date End Date Gus Booker MD [address] [place] [phone] PCP - General Family Practice 03/19/15 documented as of this encounter
--- OUTSIDE RECORDS SUMMARY | 2025-03-08 00:08 | XMS_ITS | Encounter Summary ---
Author Organization [facility] Address [address] [place] [address] Care Team Providers Care Clean Room Technician Name Role Phone Gus Booker MD Primary Care Provider [phone] Encounter Details Date Type Department Care Team (Late st Contact Info) Description 03/22/2008 Outpatient Historical [facility] Specialty Nursing [facility] [address] [place] [address] Macho Jones MD NO ADDRESS ON FILE Social History Tobacco Use Types Packs/Day Years Used Date Smoking Tobacco: Never Assessed Comments No Sex and Gender Information Value Date Recorded Sex Assigned at Not on file Legal Sex Female 3:03 AM GLOBAL TECHNICAL WRITER Gender Identity Not on file Sexual Orientation Not on file documented as of this encounter Plan of Treatment Not on file documented as of this encounter Procedures Procedure Name Priority Date/Time Associated Diagnosis Comments THYROGLOBULIN, TUMOR MARKER Routine 03/29/2008 8:12 AM GLOBAL TECHNICAL WRITER documented in this encounter Results * THYROGLOBULIN (03/29/2008 8:12 AM GLOBAL TECHNICAL WRITER) THYROGLOBULIN Sent to Reference Lab [facility] Blood specimen (specimen) 03/29/2008 8:12 AM GLOBAL TECHNICAL WRITER 03/29/2008 1:49 PM GLOBAL TECHNICAL WRITER us Macho Jones MD CHEMISTRY ORDERABLES Final R esult INTERFACE SYSTEM Refer to clinic/hospital department [facility] CLIA# [id number] [address] [place] [address] documented in this encounter Visit Diagnoses Not on filedocumented in this encounter Care Teams Clean Room Technician Relationship Specialty Start Date End Date Gus Booker MD [address] [place] [phone] PCP - General Family Practice 03/19/15 documented as of this encounter
--- OUTSIDE RECORDS SUMMARY | 2025-03-08 00:08 | XMS_ITS | Encounter Summary ---
Author Organization [facility] Address [address] [place] [address] Care Team Providers Care Body Specialist Name Role Phone Gus Booker MD Primary Care Provider Encounter Details Date Type Department Care Team (Late st Contact Info) Description 12/22/2004 Outpatient Historical [facility] [address] [facility] [address] [place] [address] Sabi Foster MD NO ADDRESS ON FILE SCREENING MAMM-MAILG NEOPL NEC (Primary Dx) Social History Tobacco Use Types Packs/Day Years Used Date Smoking Tobacco: Never Assessed Comments Unknown Sex and Gender Information Value Date Recorded Sex Assigned at Not on file 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
--- OUTSIDE RECORDS SUMMARY | 2025-03-08 00:08 | XMS_ITS | Encounter Summary ---
Author Organization [facility] Address [address] [place] [address] Care Team Providers Care Risk Control Manager Name Role Phone Gus Booker MD Primary Care Provider [phone] Encounter Details Date Type Department Care Team (Latest Contact Info) Description 05/11/[address] [facility] 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
--- OUTSIDE RECORDS SUMMARY | 2025-03-08 00:08 | XMS_ITS | Encounter Summary ---
Author Organization [facility] Address [address] 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
--- OUTSIDE RECORDS SUMMARY | 2025-03-08 00:08 | XMS_ITS | Encounter Summary ---
Author Organization [facility] Address [address] [place] [address] Care Team Providers Care Social Staff Worker Name Role Phone Gus Booker MD Primary Care Provider [phone] Encounter Details Date Type Department Care Team (Latest Contact Info) Description 03/15/2000 Outpatient Historical [facility] [place] [address] Sanjay Nunez MD NO ADDRESS ON FILE Major depressive disorder, recurrent episode, severe, without mention of psychotic behavior (CMS/HCC) (Primary Dx) Social History Tobacco Use Types Packs/Day Years Used Date Smoking Tobacco: Never Assessed Comments Unknown Sex and Gender Information Value Date Recorded Sex Assigned at Not on file 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 Gender Identity Not on file Sexual Orientation Not on file documented as of this encounter Plan of Treatment Not on file documented as of this encounter Visit Diagnoses Diagnosis Major depressive disorder, recurrent episode, severe, without mention of psychotic behavior (CMS/HCC)- Primary Major depressive disorder, recurrent episode, severe, without mention of psychotic behavior documented in this encounter Care Teams Social Staff Worker Relationship Specialty Start Date End Date Gus Booker MD [address] [place] [phone] PCP - General Family Practice 03/19/15 documented as of this encounter
--- OUTSIDE RECORDS SUMMARY | 2025-03-08 00:08 | XMS_ITS | Encounter Summary ---
Author Organization [facility] Address [address] [place] [address] Care Team Providers Care Wildlife Veterinarian Name Role Phone Gus Booker MD Primary Care Provider [phone] Encounter Details Date Type Department Care Team (Late st Contact Info) Description 02/05/2008 Outpatient Historical [facility] [address] [place] [address] Macho Jones MD NO ADDRESS ON FILE Social History Tobacco Use Types Packs/Day Years Used Date Smoking Tobacco: Never Assessed Comments No Sex and Gender Information Value Date Recorded Sex Assigned at Not on file 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 Findings: The patient is status post thyroidectomy. Comparison made with the prior exam dated 04/24/2007. No residual thyroid tissue is currently visualized. No mass or adenopathy seen. Impression: Unremarkable post thyroidectomy exam. - Dictated By: Rad Matute M.D. Electronically Signed By: Rad Matute M.D. Date Signed: 02/07/08 Procedure Note Rad Matute MD - 02/07/2008 Exam: US-Neck Date/Time of Exam: Feb 06, 2008 1:34:27 PM History: HS THYROID CA WITH PRIOR SURGERY. Findings: The patient is status post thyroidectomy. Comparison made with the prior exam dated 04/24/2007. No residual thyroidtissue is currently visualized. No mass or adenopathy seen. Impression: Unremarkable post thyroidectomy exam. - Dictated By: Rad Matute M.D. Electronically Signed By: Rad Matute M.D. Date Signed: 02/07/08 us Macho Jones MD ORDERABLES Final Result documented in this encounter Visit Diagnoses Not on filedocumented in this encounter Care Teams Wildlife Veterinarian Relationship Specialty Start Date End Date Gus Booker MD [address] [place] [phone] PCP - General Family Practice 03/19/15 documented as of this encounter
--- OUTSIDE RECORDS SUMMARY | 2025-03-08 00:08 | XMS_ITS | Encounter Summary ---
Author Organization [facility] Address [address] [place] [address] Care Team Providers Care Refrigerator Cabinetmaker Name Role Phone Gus Booker MD Primary Care Provider [phone] Encounter Details Date Type Department Care Team (Latest Contact Info) Description 01/30/2008 Outpatient [facility] [address] [place] [address] Rosa Jack MD NO ADDRESS ON FILE Personal History of Malignant Neoplasm of Large Intestine; Asymptomatic Postmenopausal Status (Age-Related) (Natural); Acquired Absence of Organ, Genital Organs; Family History of Malignant Neoplasm of Breast Social History Tobacco Use Types Packs/Day Years Used Date Smoking Tobacco: Never Assessed Comments No Sex and Gender Information Value Date Recorded Sex Assigned at Not on file 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 Gender Identity Not on file Sexual Orientation Not on file documented as of this encounter Plan of Treatment Not on file documented as of this encounter Procedures Procedure Name Priority Date/Time Associated Diagnosis Comments MAMMO SCREENING BILAT Routine 02/06/2008 3:26 PM CDT documented in this encounter Results * MAMMO SCREENING BILAT (02/06/2008 3:26 PM CDT) Anatomical Region Laterality Modality Breast Bilateral Other Narrative 02/06/2008 3:26 PM CDT Report Available in [facility] Procedure Note 05/20/2008 Report Available in [facility] Rosa Jack MD MAMMO ORDERABLES Final Result documented in this encounter Visit Diagnoses Diagnosis Personal history of malignant neoplasm of large intestine Asymptomatic postmenopausal status (age-related) (natural) Acquired absence of organ, genital organs Family history of malignant neoplasm of breast documented in this encounter Care Teams Refrigerator Cabinetmaker Relationship Specialty Start Date End Date Gus Booker MD [address] [place] [phone] PCP - General Family Practice 03/19/15 documented as of this encounter
--- OUTSIDE RECORDS SUMMARY | 2025-03-08 00:09 | XMS_ITS | Encounter Summary ---
Author Organization [facility] Address [address] [place] [address] Care Team Providers Care Amusement Centre Manager Name Role Phone Gus Booker MD Primary Care Provider [phone] Encounter Details Date Type Department Care Team (Latest Contact Info) Description 08/17/2005 Outpatient Historical [facility] Cardiac Director Of Special Events [address] [place] [address] Joby Peña MD NO ADDRESS ON FILE Unspecified Chest Pain (Primary Dx) Social History Tobacco Use Types Packs/Day Years Used Date Smoking Tobacco: Never Assessed Comments Unknown Sex and Gender Information Value Date Recorded Sex Assigned at Not on file 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 Gender Identity Not on file Sexual Orientation Not on file documented as of this encounter Plan of Treatment Not on file documented as of this encounter Procedures Procedure Name Priority Date/Time Associated Diagnosis Comments PT AND APTT Routine 08/17/2005 8:55 AM CDT CBC WITHOUT DIFFERENTIAL Routine 08/17/2005 8:55 AM CDT BASIC METABOLIC PANEL Routine 08/17/2005 8:55 AM CDT documented in this encounter Results * (ABNORMAL) CBC WITHOUT DIFFERENTIAL (08/17/2005 8:55 AM CDT) WBC 8.8 4.5 - 11.0 K/ul INTERFACE SYSTEM RBC 4.33 4.20 - 5.40 Mil/ul INTERFACE SYSTEM HEMOGLOBIN 13.4 12.0 - 16.0 g/dL INTERFACE SYSTEM HEMATOCRIT 40.7 36.0 - 46.0 % INTERFACE SYSTEM MCV 94.0 84.0 - 103.0 Fl INTERFACE SYSTEM MCH 30.9 27.0 - 34.0 pg INTERFACE SYSTEM MCHC 32.9 30.0 - 35.0 g/dL INTERFACE SYSTEM RDW 12.7 11.0 - 14.5 % INTERFACE SYSTEM PLATELETS 322 140 - 440 K/ul INTERFACE SYSTEM MPV 9.4 8.9 - 12.8 Fl INTERFACE SYSTEM NEUTROPHILS 45.5 42.2 - 75.2 % INTERFACE SYSTEM LYMPHOCYTES 45.2(H) 24.0 - 44.0 % INTERFACE SYSTEM MONOCYTES 7.5 2.0 - 10.0 % INTERFACE SYSTEM EOSINOPHILS 1.6 0.0 - 7.0 % INTERFACE SYSTEM BASOPHILS 0.2 0.0 - 1.0 % INTERFACE SYSTEM NEUTROPHIL ABSOLUTE 4.0 2.0 - 8.0 K/uL INTERFACE SYSTEM LYMPHOCYTE ABSOLUTE 4.0 1.2 - 4.0 K/ul INTERFACE SYSTEM MONOCYTE ABSOLUTE 0.7(H) 0.1 - 0.6 K/ul INTERFACE SYSTEM EOSINOPHIL ABSOLUTE 0.1 0.0 - 0.7 K/ul INTERFACE SYSTEM BASOPHILS ABSOLUTE 0.0 0.0 - 0.2 K/ul INTERFACE SYSTEM 08/17/2005 8:55 AM CDT Joby Peña MD HEMATOLOGY ORDERABLES Franca pan Result INTERFACE SYSTEM Refer to clinic/hospital department * PT AND APTT (08/17/2005 8:55 AM CDT) PROTIME 13.7 12.6 - 14.9 Secs INTERFACE SYSTEM Comment: As of 05 note change in normal range. INR 1.0 INTERFACE SYSTEM Comment: Expected Values for INR: DVT/PE Goal INR 2.5; range 2.0 - 3.0 Valve Replacement Tissue Goal INR 2.5; range 2.0 - 3.0 Mechanical Goal INR 3.0; range 2.5 - 3.5 POST-WV Goal INR 2.5; range 2.0 - 3.0 or Goal 3.0; range 2.5 - 3.5 Atrial Fibrillation Goal INR 2.5; range 2.0 - 3.0 Ischemic Stroke Goal INR 2.5; range 2.0 - 3.0 For additional information see Guidelines for Anticoagulation available from the pharmacy [facility]. PTT 26.6 21.5 - 34.4 Secs INTERFACE SYSTEM Comment: Therapeutic Range: Hi-level PE/DVT heparin protocol 90.1 -110 sec Lo-level PE/DVT heparin protocol 75.1 - 95 sec Cardiac Heparin Protocol 85.1 - 100 sec Neuro Heparin Protocol 70.1 - 85 sec As of 05/12/05 note change in APTT Normal Range. 08/17/2005 8:55 AM CDT Joby Peña MD HEMATOLOGY ORDERABLES Franca l Result Performing Organization Address City/[facility] Co de Phone Number INTERFACE SYSTEM Refer to clinic/hospital department * BASIC METABOLIC PANEL (08/17/2005 8:55 AM CDT) GLUCOSE 105 70 - 110 mg/dL INTERFACE SYSTEM BUN 12 7 - 17 mg/dL INTERFACE SYSTEM CREATININE 0.8 0.7 - 1.2 mg/dL INTERFACE SYSTEM SODIUM 143 136 - 145 mEq/L INTERFACE SYSTEM POTASSIUM 4.4 3.5 - 5.0 mEq/L INTERFACE SYSTEM CHLORIDE 107 95 - 110 mEq/L INTERFACE SYSTEM CO2 29 22 - 32 mmol/l INTERFACE SYSTEM ANION GAP 11 9 - 20 mEq/L INTERFACE SYSTEM OSMOLALITY, CALCULATED 294 275 - 295 mOsm/Kg INTERFACE SYSTEM CALCIUM 9.7 8.4 - 10.5 mg/dL INTERFACE SYSTEM 08/17/2005 8:55 AM CDT Joby Peña MD CHEMISTRY ORDERABLES Final Result Performing Organization Address City/[facility] Co de Phone Number INTERFACE SYSTEM Refer to clinic/hospital department documented in this encounter Visit Diagnoses Diagnosis Chest pain, unspecified- Primary documented in this encounter Care Teams Amusement Centre Manager Relationship Specialty Start Date End Date Gus Booker MD [address] [place] [phone] PCP - General Family Practice 03/19/15 documented as of this encounter
--- OUTSIDE RECORDS SUMMARY | 2025-03-08 00:09 | XMS_ITS | Encounter Summary ---
Author Organization [facility] Address [address] [place] [address] Care Team Providers Care Supervisor Telephone Answering Service Name Role Phone Gus Booker MD Primary Care Provider [phone] Reason for Referral * Outpatient Services (Routine) - Closed Specialty Diagnoses / Procedures Referred By Contsharon t Referred To Contact Diagnoses Inconclusive mammogram Procedures MAMMO BREAST US LEFT LTD Gus Booker MD [address] [place] [phone] Phone: tel: fax: [employer] Pre-Registration [place] CALL TO MAKE APPOINTMENT ONLY [address] [place] [address] Phone: tel: fax: Referral ID Status Reason Start Date Expiration Date Visits Re quested Visits Authorized [id number] Closed 11/15/2016 12/16/2017 1 1 * Outpatient Services (Routine) - Closed Specialty Diagnoses / Procedures Referred By Contac t Referred To Contact Diagnoses Inconclusive mammogram Procedures MAMMO DIAGNOSTIC UNI LEFT W OR WO CAD Gus Booker MD [address] [place] [phone] Phone: tel: fax: [employer] Pre-Registration [place] CALL TO MAKE APPOINTMENT ONLY [address] [place] [address] Phone: tel: fax: Referral ID Status Reason Start Date Expiration Date Visits Re quested Visits Authorized [id number] Closed 11/15/2016 12/16/2017 1 1 Encounter Details Date Type Department Care Team (Latest Contact Info) Description 11/15/2016 Ancillary Orders [facility] [address] [place] [address] Gus Booker MD [address] [place] [address] Inconclusive mammogram Social History Tobacco Use Types Packs/Day Years Used Date Smoking Tobacco: Never Smokeless Tobacco: Never Alcohol Use Standard Drinks/Week Comments No 0 (1 standard drink = 0.6 oz pur e alcohol) Comments No Sex and Gender Information Value Date Recorded Sex Assigned at Not on file 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 Gender Identity Not on file Sexual Orientation Not on file Occupation Industry Job Start Date Job End Date Not on file Not on file Not on file Not on file documented as of this encounter Plan of Treatment Not on file documented as of this encounter Results * (ABNORMAL) MAMMO DIAGNOSTIC UNI LEFT W OR WO CAD (11/17/2016 1:53 PM CDT) Anatomical Region Laterality Modality Breast Left Mammography 11/17/2016 1:53 PM CDT Narrative 11/17/2016 3:42 PM CDT MAMMO DIAGNOSTIC UNI LEFT W OR WO CAD, MAMMO BREAST US LEFT LTD INDICATION FOR EXAMINATION: Inconclusive mammogram COMPARISONS: Mammogram dated 11/12/2016, 10/29/2015, 08/29/2014, 08/23/2013, 07/13/2012, 05/13/2011, 04/14/2010, 02/19/2009, 02/06/2009, 02/06/2008, 01/10/2007. BREAST COMPOSITION: Scattered areas of fibroglandular density. FINDINGS: This digital mammogram was also analyzed by the Computer Aided Detection System (CAD), [employer], Version 8.3. The previously identified lateral left breast focal asymmetry, approximately 3:00, at mid to posterior depth persists on additional imaging. Left breast ultrasound was performed. Static sonographic images of the left breast were obtained with Doppler interrogation. At 2:00 11 cm from the nipple a benign minimally complicated cyst is noted measuring up to 0.4 cm. No suspicious abnormality is noted at 3:00 to 4:00 to correlate with the left breast mammographic finding. Stereotactic guided biopsy of the left breast focal asymmetry is recommended. ASSESSMENT: Suspicious abnormality. BI-RADS 4. RECOMMENDATIONS: Stereotactic guided left breast biopsy. The patient was given a result/recommendation letter. [id number] Procedure Note Giovany Huber MD - 11/17/2016 MAMMO DIAGNOSTIC UNI LEFT W OR WO CAD, MAMMO BREAST US LEFT LTD INDICATION FOR EXAMINATION: Inconclusive mammogram COMPARISONS: Mammogram dated 11/12/2016, 10/29/2015, 08/29/2014, 08/23/2013, 07/13/2012, 05/13/2011, 04/14/2010, 02/19/2009, 02/06/2009, 02/06/2008, 01/10/2007. BREAST COMPOSITION: Scattered areas of fibroglandular density. FINDINGS: This digital mammogram was also analyzed by the Computer Aided Detection System (CAD), [employer], Version 8.3. The previously identified lateral left breast focal asymmetry, approximately 3:00, at mid to posterior depth persists on additional imaging. Left breast ultrasound was performed. Static sonographic images of the left breast were obtained with Doppler interrogation. At 2:00 11 cm from the nipple a benign minimally complicated cyst is noted measuring up to 0.4 cm. No suspicious abnormality is noted at 3:00 to 4:00 to correlate with the left breast mammographic finding. Stereotactic guided biopsy of the left breast focal asymmetry is recommended. ASSESSMENT: Suspicious abnormality. BI-RADS 4. RECOMMENDATIONS: Stereotactic guided left breast biopsy. The patient was given a result/recommendation letter. [id number] us External Provider [facility] MAMMO ORDERABLES Final Res ult * (ABNORMAL) MAMMO BREAST US LEFT LTD (11/17/2016 1:34 PM CDT) Anatomical Region Laterality Modality Left Ultrasound 11/17/2016 1:34 PM CDT Narrative 11/17/2016 3:42 PM CDT MAMMO DIAGNOSTIC UNI LEFT W OR WO CAD, MAMMO BREAST US LEFT LTD INDICATION FOR EXAMINATION: Inconclusive mammogram COMPARISONS: Mammogram dated 11/12/2016, 10/29/2015, 08/29/2014, 08/23/2013, 07/13/2012, 05/13/2011, 04/14/2010, 02/19/2009, 02/06/2009, 02/06/2008, 01/10/2007. BREAST COMPOSITION: Scattered areas of fibroglandular density. FINDINGS: This digital mammogram was also analyzed by the Computer Aided Detection System (CAD), [employer], Version 8.3. The previously identified lateral left breast focal asymmetry, approximately 3:00, at mid to posterior depth persists on additional imaging. Left breast ultrasound was performed. Static sonographic images of the left breast were obtained with Doppler interrogation. At 2:00 11 cm from the nipple a benign minimally complicated cyst is noted measuring up to 0.4 cm. No suspicious abnormality is noted at 3:00 to 4:00 to correlate with the left breast mammographic finding. Stereotactic guided biopsy of the left breast focal asymmetry is recommended. ASSESSMENT: Suspicious abnormality. BI-RADS 4. RECOMMENDATIONS: Stereotactic guided left breast biopsy. The patient was given a result/recommendation letter. [id number] Procedure Note Giovany Huber MD - 11/17/2016 MAMMO DIAGNOSTIC UNI LEFT W OR WO CAD, MAMMO BREAST US LEFT LTD INDICATION FOR EXAMINATION: Inconclusive mammogram COMPARISONS: Mammogram dated 11/12/2016, 10/29/2015, 08/29/2014, 08/23/2013, 07/13/2012, 05/13/2011, 04/14/2010, 02/19/2009, 02/06/2009, 02/06/2008, 01/10/2007. BREAST COMPOSITION: Scattered areas of fibroglandular density. FINDINGS: This digital mammogram was also analyzed by the Computer Aided Detection System (CAD), [employer], Version 8.3. The previously identified lateral left breast focal asymmetry, approximately 3:00, at mid to posterior depth persists on additional imaging. Left breast ultrasound was performed. Static sonographic images of the left breast were obtained with Doppler interrogation. At 2:00 11 cm from the nipple a benign minimally complicated cyst is noted measuring up to 0.4 cm. No suspicious abnormality is noted at 3:00 to 4:00 to correlate with the left breast mammographic finding. Stereotactic guided biopsy of the left breast focal asymmetry is recommended. ASSESSMENT: Suspicious abnormality. BI-RADS 4. RECOMMENDATIONS: Stereotactic guided left breast biopsy. The patient was given a result/recommendation letter. [id number] us External Provider [facility] MAMMO ORDERABLES Final Res ult documented in this encounter Visit Diagnoses Diagnosis Inconclusive mammogram Inconclusive mammogram Inconclusive mammogram documented in this encounter Care Teams Supervisor Telephone Answering Service Relationship Specialty Start Date End Date Gus Booker MD [address] [place] [address] PCP - General Family Practice 03/19/15 documented as of this encounter
--- OUTSIDE RECORDS SUMMARY | 2025-03-08 00:09 | XMS_ITS | Encounter Summary ---
Author Organization [facility] Address [address] [place] [address] Care Team Providers Care Commercial Hvac Technician Name Role Phone Gus Booker MD Primary Care Provider [phone] Encounter Details Date Type Department Care Team (Latest Contact Info) Description 08/09/2005 Outpatient Historical [facility] Gen Spec Surg 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
--- OUTSIDE RECORDS SUMMARY | 2025-03-08 00:09 | XMS_ITS | Encounter Summary ---
Author Organization [facility] Address [address] [place] [address] Care Team Providers Care Building Components Designer Name Role Phone Gus Booker MD Primary Care Provider [phone] Reason for Referral * Outpatient Services (Routine) - Closed Specialty Diagnoses / Procedures Referred By Contac t Referred To Contact Diagnoses Other screening mammogram Procedures MAMMO DIGITAL SCREEN BILAT Gus Booker MD [address] [place] [address] Phone: tel: fax: [facility] Pre-Registration [place] CALL TO MAKE APPOINTMENT ONLY [address] [place] [address] Phone: tel: fax: Referral ID Status Reason Start Date Expiration Date V isits Requested Visits Authorized [id number] Closed F [facility] TO SCHEDULE ([facility]GF) 08/05/2014 09/05/2015 1 1 Encounter Details Date Type Department Care Team (Latest Contact Info) Description 08/05/2014 Ancillary Orders [facility] Pre-Registration [place] CALL TO MAKE APPOINTMENT ONLY [address] [place] [address] Gus Booker MD [address] [place] [address] Other screening mammogram (Primary Dx) Social History Tobacco Use Types Packs/Day Years Used Date Smoking Tobacco: Never Smokeless Tobacco: Never Alcohol Use Standard Drinks/Week Comments No 0 (1 standard drink = 0.6 oz pur e alcohol) Comments No Sex and Gender Information Value Date Recorded Sex Assigned at Not on file Legal Sex Female 3:03 AM 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 Gender Identity Not on file Sexual Orientation Not on file Occupation Industry Job Start Date Job End Date Not on file Not on file Not on file Not on file documented as of this encounter Plan of Treatment Not on file documented as of this encounter Results * MAMMO DIGITAL SCREEN BILAT (08/29/2014 1:42 PM CDT) Anatomical Region Laterality Modality Breast Bilateral Mammography Narrative 08/30/2014 4:13 PM CDT Bilateral Mammogram Reason for Exam: Screening Comparison: Compared to: 08/23/2013 MAMMO DIGITAL SCREEN BILAT, 07/13/2012 MAMMO DIGITAL SCREEN BILAT, 05/13/2011 MAMMO DIGITAL SCREEN BILAT, 04/14/2010 MAMMO DIGITAL SCREEN BILAT Findings: Bilateral CC and MLO views were obtained. This examination was reviewed with the aid of a computer-aided detection system(CAD). The breast tissue density is average. No significant new findings since the prior mammogram(s). External Provider [facility] MAMMO ORDERABLES Final Res ult documented in this encounter Visit Diagnoses Diagnosis Other screening mammogram- Primary Other screening mammogram documented in this encounter Care Teams Building Components Designer Relationship Specialty Start Date End Date Gus Booker MD [address] [place] [phone] PCP - General Family Practice 03/19/15 documented as of this encounter
--- OUTSIDE RECORDS SUMMARY | 2025-03-08 00:09 | XMS_ITS | Encounter Summary ---
Author Organization [facility] Address [address] [place] [address] Care Team Providers Care American History Professor Name Role Phone Gus Booker MD Primary Care Provider [phone] Encounter Details Date Type Department Care Team (Late st Contact Info) Description 04/24/2007 Outpatient Historical [facility] Imaging Services[facility] [place] [address] [place] [phone] Social History Tobacco Use Types Packs/Day Years Used Date Smoking Tobacco: Never Assessed Comments Unknown Sex and Gender Information Value Date Recorded Sex Assigned at Not on file Legal Sex Female 3:03 AM COUNTER SERVER Gender Identity Not on file Sexual Orientation Not on file documented as of this encounter Plan of Treatment Not on file documented as of this encounter Visit Diagnoses Not on filedocumented in this encounter Care Teams American History Professor Relationship Specialty Start Date End Date Gus Booker MD [address] [place] [phone] PCP - General Family Practice 03/19/15 documented as of this encounter
--- OUTSIDE RECORDS SUMMARY | 2025-03-08 00:09 | XMS_ITS ---
Author Organization [facility] Address [address] 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 Michelle 02/15/2018 02/22/2018 History of thyroid cancer - papillary 2006 02/09 S/P thyroidectomy [address] Slater 02/09/2018 Chronic cough 10/05/2017 Asthma 10/05/2017 GERD (gastroesophageal reflux disease) 8 Delayed gastric emptying 12/05/2015 Insomnia due to mental condition 03/05/2015 Knee pain, right 11/21/2014 Acromioclavicular joint arthritis 07/26/2014 CARLOS (generalized anxiety disorder) 07/03/2014 Tennis elbow 09/20/2012 Wrist pain 11/12/2010 Tendonitis 11/12/2010 Dysfunction of eustachian tube 05/14/2010 Unspecified sinusitis (chronic) 05/14/2010 Postsurgical hypothyroidism 08/01/2008 Personal history of malignant neoplasm of thyroi d 08/01/2008 Overview (10/06/2020): CHANGED PER PB QUERY RESPONSE DOS 10.02.2020 Current Treatment and Therapy Plans No current plan information found. Past Treatment and Therapy Plans No past plan information found. 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
--- OUTSIDE RECORDS SUMMARY | 2025-03-08 00:09 | XMS_ITS | Encounter Summary ---
Author Organization [facility] Address [address] [place] [address] Care Team Providers Care Implementation Project Coordinator Name Role Phone Gus Booker MD Primary Care Provider [phone] Encounter Details Date Type Department Care Team (Latest Contact Info) Description 04/21/2007 Outpatient Historical [facility] Imaging Services-[place] [facility] [address] [place] [address] Macho Jones MD NO ADDRESS ON FILE Unspecified Hypothyroidism Social History Tobacco Use Types Packs/Day Years Used Date Smoking Tobacco: Never Assessed Comments Unknown Sex and Gender Information Value Date Recorded Sex Assigned at Not on file Legal Sex Female 3:03 AM PAY AGENT Gender Identity Not on file Sexual Orientation Not on file documented as of this encounter Plan of Treatment Not on file documented as of this encounter Procedures Procedure Name Priority Date/Time Associated Diagnosis Comments US HEAD NECK TISSUES Routine 04/21/2007 1:20 PM PAY AGENT documented in this encounter Results * US NECK TISSUES (04/21/2007 1:20 PM PAY AGENT) Anatomical Region Laterality Modality Head Other 04/21/2007 1:20 PM PAY AGENT Narrative 04/21/2007 1:20 PM PAY AGENT Exam: US-NeckDate/Time of Exam: Apr 24, 2007 1:30:08 PMHistory: HS OF THYROID CA WITH PRIOR SURGERY. Findings: Comparison study 10/13/2006. Prior thyroidectomy with no apparent sonographic evidence forresidual thyroid tissue or abnormal mass within thyroid fossa. Two top normal sized lymph nodesoverlie right side of the neck measuring no greater than 1 cm in greatest diameter. Similar sizedsolitary top normal sized lymph node overlies left side of the neck. Impression: As above. - Dictated By: Mary Shah M.D. Electronically Signed By: Mary Shah M.D. Date Signed: 04/24/07 AMA Procedure Note 03/09/2009 Exam: US-NeckDate/Time of Exam: Apr 24, 2007 1:30:08 PMHistory: HS OF THYROID CA WITH PRIOR SURGERY. Findings: Comparison study 10/13/2006. Prior thyroidectomy with no apparentsonographic evidence forresidual thyroid tissue or abnormal mass within thyroid fossa. Two top normal sized lymphnodesoverlie right side of the neck measuring no greater than 1 cm in greatest diameter. Similarsizedsolitary top normal sized lymph node overlies left side of the neck. Impression: As above. - Dictated By: Mary Shah M.D. Electronically Signed By: Mary Shah M.D. Date Signed: 04/24/07 AMA us Macho Jones MD US ORDERABLES Final Result documented in this encounter Visit Diagnoses Diagnosis Unspecified hypothyroidism documented in this encounter Care Teams Implementation Project Coordinator Relationship Specialty Start Date End Date Gus Booker MD [address] [place] [phone] PCP - General Family Practice 03/19/15 documented as of this encounter
--- OUTSIDE RECORDS SUMMARY | 2025-03-08 00:09 | XMS_ITS | Encounter Summary ---
Author Organization [facility] Address [address] [place] [address] Care Team Providers Care Swing Tender Name Role Phone Gus Booker MD Primary Care Provider [phone] Encounter Details Date Type Department Care Team (Latest Contact Info) Description 04/10/2008 Outpatient Historical [facility] Imaging Services-[facility] [address] [place] [address] Macho Jones MD NO ADDRESS ON FILE Malignant Neoplasm of Thyroid Gland (CMS/HCC) Social History Tobacco Use Types Packs/Day Years Used Date Smoking Tobacco: Never Assessed Comments No Sex and Gender Information Value Date Recorded Sex Assigned at Not on file Legal Sex Female 3:03 AM PAVILION CUTTER Gender Identity Not on file Sexual Orientation Not on file documented as of this encounter Plan of Treatment Not on file documented as of this encounter Procedures Procedure Name Priority Date/Time Associated Diagnosis Comments CT SOFT TISSUE NECK W CONTRAST Routine 04/12/2008 3:[address] CHEST W CONTRAST Routine 04/12/2008 3 :03 PM PAVILION CUTTER POC CREATININE Routine 04/12/2008 2:15 PM PAVILION CUTTER documented in this encounter Results * CT SOFT TISSUE NECK W CONTRAST (04/12/2008 3:04 PM PAVILION CUTTER) Anatomical Region Laterality Modality Neck Other 04/12/2008 3:04 PM PAVILION CUTTER Narrative 04/12/2008 3:36 PM PAVILION CUTTER 50 mL of Optiray-240 were given during the exam. The study is compared to previous exam of September 28, 2006. No masses are identified in the thyroid bed. No obvious residual thyroid tissue is present. Several borderline enlarged nodes are present in levels 2 and 3 of the right neck. These nodes have increased in size and perhaps number since the exam of September 2006. The nodes are relatively unimpressive in appearance with the largest measuring up to 9 mm in diameter. The suprahyoid neck is unremarkable. Bony structures and pulmonary apices are unremarkable. Impression: 1. Mild increase in size and number of borderline enlarged nodes in levels 2 and 3 on the right in September 2006. None of these meet CT criteria for pathological nodes however. Perhaps the most worrisome lymph node is on image 76 seen adjacent to the posterior lateral wall of the right internal jugular vein which is somewhat poorly defined and perhaps contains central calcification. This apparently has increased in size and developed calcification since the previous exam. - Dictated By: Zeb Barger M.D. Electronically Signed By: Zeb Barger M.D. Date Signed: 04/12/08 Procedure Note Zeb Barger MD - 04/12/2008 50 mL of Optiray-240 were given during the exam. The study is compared toprevious exam of September 28, 2006. No masses are identified in the thyroid bed. No obvious residual thyroidtissue is present. Several borderline enlarged nodes are present in levels 2 and 3 of theright neck. These nodes have increased in size and perhaps number since the exam of September 2006. Thenodes are relatively unimpressive in appearance with the largest measuring up to 9 mm in diameter. The suprahyoid neck is unremarkable. Bony structures and pulmonary apicesare unremarkable. Impression: 1. Mild increase in size and number of borderline enlarged nodes in levels2 and 3 on the right in September 2006. None of these meet CT criteria for pathological nodes however.Perhaps the most worrisome lymph node is on image 76 seen adjacent to the posterior lateral wall of theright internal jugular vein which is somewhat poorly defined and perhaps contains central calcification.This apparently has increased in size and developed calcification since the previous exam. - Dictated By: Zeb Barger M.D. Electronically Signed By: Zeb Barger M.D. Date Signed: 04/12/08 us Macho Jones MD CT ORDERABLES Final Result * CT CHEST W CONTRAST (04/12/2008 3:03 PM PAVILION CUTTER) Anatomical Region Laterality Modality Chest Other 04/12/2008 3:03 PM PAVILION CUTTER Narrative 04/13/2008 5:[address] of the chest was performed after injection of 75 mL Optiray-240 contrast and the prior exam is 04/04/2006. No adenopathy is identified in the axilla or mediastinum. In the right hilum on image 32, there is a lymph node with a short axis measurement of 8 mm. No pathologically enlarged lymph nodes are identified and there is no pleural or pericardial effusion. The adrenal glands are normal in size. The upper poles of the kidneys, pancreas, spleen and liver are unremarkable. Probable mild fatty infiltration of the liver is noted. A few punctate calcified granulomas are scattered in the lungs. There is a triangular patchy groundglass density nodule right lung image 30 measuring 1 cm in greatest dimension. This has poorly defined margins and may reflect an area of scarring and follow up in 3 months is recommended. There is also a 2 mm nodule periphery left lung image 17. This is not calcified on the thinner series 3 images and this nodule also should be followed. No bony destructive lesion is identified. Mild diffuse degenerative changes are noted in the spine. Impression: 1. Indeterminate pulmonary nodule or densities are noted and a followup exam in 3 months is recommended. There is no adenopathy. - Dictated By: Evangelina Aragon M.D. Electronically Signed By: Evangelina Aragon M.D. Date Signed: 04/13/08 Procedure Note Evangelina Aragon MD - 04/13/2008 CT of the chest was performed after injection of 75 mL Optiray-240contrast and the prior exam is 04/04/2006. No adenopathy is identified in the axilla or mediastinum. In the righthilum on image 32, there is a lymph node with a short axis measurement of 8 mm. No pathologicallyenlarged lymph nodes are identified and there is no pleural or pericardial effusion. The adrenal glands arenormal in size. The upper poles of the kidneys, pancreas, spleen and liver are unremarkable. Probable mildfatty infiltration of the liver is noted. A few punctate calcified granulomas are scattered in the lungs. There is atriangular patchy groundglass density nodule right lung image 30 measuring 1 cm in greatest dimension.This has poorly defined margins and may reflect an area of scarring and follow up in 3 months isrecommended. There is also a 2 mm nodule periphery left lung image 17. This is not calcified on the thinner series3 images and this nodule also should be followed. No bony destructive lesion is identified. Mild diffuse degenerativechanges are noted in the spine. Impression: 1. Indeterminate pulmonary nodule or densities are noted and a followupexam in 3 months is recommended. There is no adenopathy. - Dictated By: Evangelina Aragon M.D. Electronically Signed By: Evangelina Aragon M.D. Date Signed: 04/13/[address] ORDERABLES Final Result * (ABNORMAL) POC CREATININE (04/12/2008 2:15 PM PAVILION CUTTER) CREATININE POC 0.7(L) 0.7 - 1.2 mg/dL [facility] Capillary blood specimen (specimen) 04/12/2008 2:15 PM PAVILION CUTTER 04/12/2008 5:13 PM PAVILION CUTTER Macho Jones MD POINT OF CARE TESTING Final Result INTERFACE SYSTEM Refer to clinic/hospital department [facility] CLIA# [id number] [address] [place] [address] documented in this encounter Visit Diagnoses Diagnosis Malignant neoplasm of thyroid gland (CMS/HCC) Malignant neoplasm of thyroid gland documented in this encounter Care Teams Swing Tender Relationship Specialty Start Date End Date Gus Booker MD [address] [place] [phone] PCP - General Family Practice 03/19/15 documented as of this encounter
--- OUTSIDE RECORDS SUMMARY | 2025-03-08 00:09 | XMS_ITS | Encounter Summary ---
Author Organization [facility] Address [address] [place] [address] Care Team Providers Care Meter Calibrator Name Role Phone Gus Booker MD Primary Care Provider [phone] Encounter Details Date Type Department Care Team (Latest Contact Info) Description 08/02/[address] [facility] Imaging Services [address] [place] [id number] Rosa Jack MD NO ADDRESS ON FILE Malignant Neoplasm of Thyroid Gland (CMS/HCC) (Primary Dx) Social History Tobacco Use Types Packs/Day Years Used Date Smoking Tobacco: Never Assessed Comments Unknown Sex and Gender Information Value Date Recorded Sex Assigned at Not on file Legal Sex Female 3:03 AM COTTON PROGRAM TECHNICIAN Gender Identity Not on file Sexual Orientation Not on file documented as of this encounter Plan of Treatment Not on file documented as of this encounter Procedures Procedure Name Priority Date/Time Associated Diagnosis Comments US BIOPSY THYROID PERCUTANEOUS Routine 08/02/2005 12:01 AM CDT documented in this encounter Results * US BIOPSY THYROID NEEDLE GUIDANCE (08/02/2005 12:01 AM CDT) Anatomical Region Laterality Modality Neck Other 08/02/2005 12:0 1 AM CDT Narrative 01/09/2009 7:49 AM CDT ULTRASOUND GUIDED FNA OF A RIGHT THYROID NODULE DATE OF PROCEDURE: 08-02-05 BRIEF HISTORY: This is a patient referred from Dr. Rosa Jack with history of right thyroid nodule noted incidentally on an MRI scan of the neck, now seen for FNA of right thyroid nodule. PROCEDURE: Following a detailed discussion in regards to this procedure as well as the potential complications and risks with the patient, a written consent was obtained. The patient was placed in a supine position with the neck slightly hyper extended and ultrasound was utilized to evaluate the right thyroid for position of the nodule as well as preferred site of FNA. The area was marked, prepped and draped in the usual sterile fashion and local anesthesia was achieved with a scant amount of 1% lidocaine superficially. With the use of ultrasound probe needle gauge, a 25 gauge needle was passed via multiple passes into the nodule with fluid and debris obtained. There was a final pass made with a 22 gauge Biomol aspirative type device and more fluid and debris obtained. This was placed within a thin prep solution as well as on multiple microscopic slides. The needle was removed, Betadine cleansed from the skin, and a sterile dressing placed. Repeat ultrasound verified hemostasis and no obvious bleeding was noted. The patient was then kept for a brief observation period and released in stable and comfortable condition having tolerated the procedure well. [facility]5 Dictated By: Chester Najera Electronically Signed By: Chester Najera Electronically Signed By: Abelardo Sams M.D. Date Signed: 08/04/05 [facility] Procedure Note Provider, Historical - 03/05/2009 ULTRASOUND GUIDED FNA OF A RIGHT THYROID NODULE DATE OF PROCEDURE: 08-02-05 BRIEF HISTORY: This is a patient referred from Dr. Rosa Jack with history of rightthyroid nodule noted incidentally on an MRI scan of the neck, now seen for FNA of rightthyroid nodule. PROCEDURE: Following a detailed discussion in regards to this procedure as well asthe potential complications and risks with the patient, a written consent was obtained. The patient was placed in a supine position with the neck slightly hyperextended and ultrasound was utilized to evaluate the right thyroid for position of the nodule as wellas preferred site of FNA. The area was marked, prepped and draped in the usual sterile fashion andlocal anesthesia was achieved with a scant amount of 1% lidocaine superficially. With the use of ultrasoundprobe needle gauge, a 25 gauge needle was passed via multiple passes into the nodule with fluid anddebris obtained. There was a final pass made with a 22 gauge Biomol aspirative type device and more fluidand debris obtained. This was placed within a thin prep solution as well as on multiple microscopicslides. The needle was removed, Betadine cleansed from the skin, and a sterile dressing placed. Repeatultrasound verified hemostasis and no obvious bleeding was noted. The patient was then kept for a briefobservation period and released in stable and comfortable condition having tolerated the procedure well. [facility] Dictated By: Chester Najera Electronically Signed By: Chester Najera Electronically Signed By: Abelardo Sams M.D. Date Signed: 08/04/05 [facility] Rosa Jack MD ORDERABLES Final Result documented in this encounter Visit Diagnoses Diagnosis Malignant neoplasm of thyroid gland (CMS/HCC)- Primary Malignant neoplasm of thyroid gland documented in this encounter Care Teams Meter Calibrator Relationship Specialty Start Date End Date Gus Booker MD [address] [place] [phone] PCP - General Family Practice 03/19/15 documented as of this encounter
--- OUTSIDE RECORDS SUMMARY | 2025-03-08 00:09 | XMS_ITS | Encounter Summary ---
Author Organization [facility] Address [address] [place] [address] Care Team Providers Care Science Analyst Name Role Phone Gus Booker MD Primary Care Provider [phone] Encounter Details Date Type Department Care Team (Latest Contact Info) Description 09/02/2005 Outpatient Historical [facility] Endocrinology-[facility] [place] [address] [place] [phone] Macho Jones MD NO ADDRESS ON FILE Malig Julio Thyroid (Primary Dx) Social History Tobacco Use Types Packs/Day Years Used Date Smoking Tobacco: Never Assessed Comments Unknown Sex and Gender Information Value Date Recorded Sex Assigned at Not on file Legal Sex Female 3:03 AM TEMP RECRUITER Gender Identity Not on file Sexual Orientation Not on file documented as of this encounter Plan of Treatment Not on file documented as of this encounter Visit Diagnoses Diagnosis Malig julio thyroid- Primary Malignant neoplasm of thyroid gland documented in this encounter Care Teams Science Analyst Relationship Specialty Start Date End Date Gus Booker MD [address] [place] [address] PCP - General Family Practice 03/19/15 documented as of this encounter
--- OUTSIDE RECORDS SUMMARY | 2025-03-08 00:09 | XMS_ITS | Encounter Summary ---
Author Organization [facility] Address [address] [place] [address] Care Team Providers Care Spa Supervisor Name Role Phone Gus Booker MD Primary Care Provider [phone] Encounter Details Date Type Department Care Team (Late st Contact Info) Description 05/01/2007 Outpatient Historical [facility] Endocrinology-[facility] [address] [place] [phone] Macho Jones MD NO ADDRESS ON FILE Social History Tobacco Use Types Packs/Day Years Used Date Smoking Tobacco: Never Assessed Comments No Sex and Gender Information Value Date Recorded Sex Assigned at Not on file Legal Sex Female 3:03 AM SUPERVISOR PILE DRIVING Gender Identity Not on file Sexual Orientation Not on file documented as of this encounter Plan of Treatment Not on file documented as of this encounter Visit Diagnoses Not on filedocumented in this encounter Care Teams Spa Supervisor Relationship Specialty Start Date End Date Gus Booker MD [address] [place] [address] PCP - General Family Practice 03/19/15 documented as of this encounter
--- OUTSIDE RECORDS SUMMARY | 2025-03-08 00:09 | XMS_ITS | Encounter Summary ---
Author Organization [facility] Address [address] [place] [address] Care Team Providers Care Tripoler Name Role Phone Gus Booker MD Primary Care Provider [phone] Encounter Details Date Type Department Care Team (Late st Contact Info) Description 03/28/2007 Outpatient Historical [facility] Macho Jones MD NO ADDRESS ON FILE Malig Julio Lymph-Head/Neck (CMS/HCC); Other and Unspecified Hyperlipidemia; Peptic Ulcer, Site NOS; Depressive Disorder, not Elsewhere Classified Social History Tobacco Use Types Packs/Day Years Used Date Smoking Tobacco: Never Assessed Comments Unknown Sex and Gender Information Value Date Recorded Sex Assigned at Not on file 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 Gender Identity Not on file Sexual Orientation Not on file documented as of this encounter Plan of Treatment Not on file documented as of this encounter Visit Diagnoses Diagnosis Secondary and unspecified malignant neoplasm of lymph nodes of head, face, 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
--- OUTSIDE RECORDS SUMMARY | 2025-03-08 00:09 | XMS_ITS | Encounter Summary ---
Author Organization [facility] Address [address] [place] [address] Care Team Providers Care Cad Draftsman Name Role Phone Gus Booker MD Primary Care Provider [phone] Encounter Details Date Type Department Care Team (Latest Contact Info) Description 08/09/2005 Outpatient Historical [facility] [place] [address] [place] [address] Joby Slater MD NO ADDRESS ON FILE Pre-Operative Cardiovascular Examination (Primary Dx) Social History Tobacco Use Types Packs/Day Years Used Date Smoking Tobacco: Never Assessed Comments Unknown Sex and Gender Information Value Date Recorded Sex Assigned at Not on file 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 Gender Identity Not on file Sexual Orientation Not on file documented as of this encounter Plan of Treatment Not on file documented as of this encounter Procedures Procedure Name Priority Date/Time Associated Diagnosis Comments URINALYSIS W/REFLEX MICROSCOPIC Routine 08/09/2005 6:25 PM CDT CBC WITH DIFFERENTIAL Routine 08/09/2005 6:10 PM CDT COMPREHENSIVE METABOLIC PANEL Routine 08/09/2005 6:10 PM CDT documented in this encounter Results * (ABNORMAL) URINALYSIS (08/09/2005 6:25 PM CDT) COLOR UA Yellow Straw INTERFACE SYSTEM CLARITY UA Clear Clear INTERFACE SYSTEM LEUKOCYTE ESTERASE UA NEGATIVE NEGATIVE INTERFACE SYSTEM NITRITE UA NEGATIVE NEGATIVE INTERFACE SYSTEM PH UA 7.5 5.0 - 9.0 INTERFACE SYSTEM PROTEIN UA NEGATIVE NEGATIVE INTERFACE SYSTEM Comment: As of 04 positive protein results obtained on routine urinalysis will not be confirmed by sulfosalicylic acid (SSA) precipitation. Current methodology for protein detection is highly sensitive for detection of albumin; therefore, confirmation is not necessary. GLUCOSE UA NEGATIVE NEGATIVE INTERFACE SYSTEM KETONES UA NEGATIVE NEGATIVE INTERFACE SYSTEM UROBILINOGEN UA 1.0(A) 0.2 INTE RFACE SYSTEM BILIRUBIN UA NEGATIVE NEGATIVE INTERFA CE SYSTEM BLOOD UA NEGATIVE NEGATIVE INTERFACE SYSTEM SPECIFIC GRAVITY UA 1.020 1.005 - 1.030 INTERFACE SYSTEM MICRO EXAM No No INTERFACE SYSTEM 08/09/2005 6:25 PM CDT us Historical Provider URINE ORDERABLES Final Resul t INTERFACE SYSTEM Refer to clinic/hospital department * (ABNORMAL) COMPREHENSIVE METABOLIC PANEL (08/09/2005 6:10 PM CDT) GLUCOSE 132(H) 70 - 110 mg/dL INTERFACE SYSTEM BUN 19(H) 7 - 17 mg/dL INTERFACE SYSTEM CREATININE 1.0 0.7 - 1.2 mg/dL INTERFACE SYSTEM SODIUM 140 136 - 145 mEq/L INTERFACE SYSTEM POTASSIUM 4.7 3.5 - 5.0 mEq/L INTERFACE SYSTEM CHLORIDE 103 95 - 110 mEq/L INTERFACE SYSTEM CO2 30 22 - 32 mmol/l INTERFACE SYSTEM ANION GAP 12 9 - 20 mEq/L INTERFACE SYSTEM OSMOLALITY, CALCULATED 293 275 - 295 mOsm/Kg INTERFACE SYSTEM CALCIUM 9.6 8.4 - 10.5 mg/dL INTERFACE SYSTEM TOTAL PROTEIN 7.8 6.3 - 8.2 g/dL INTERFACE SYSTEM ALBUMIN 4.9 3.5 - 5.0 g/dL INTERFACE SYSTEM GLOBULIN (CALC) 2.9 2.4 - 3.9 g/dL INTERFACE SYSTEM ALBUMIN/GLOBULIN RATIO 1.7 1.0 - 2.3 INTERFACE SYSTEM ALKALINE PHOSPHATASE 55 25 - 100 U/L INTERFACE SYSTEM Comment: As of 05 the [facility] has changed testing methods. The new reference range is 25-100 The old referance range was 38-126 AST 29 8 - 33 U/L INTERFACE SYSTEM Comment: [facility] of 05 [facility] testing methods. The new reference range is 8-33 The old referance range was Males 17-59 Females 14-36 ALT 30 4 - 36 IU/L INTERFACE SYSTEM Comment: As of [address] [facility] has changed testing methods. The new reference range is 4-36 The old referance range was Males 21-72 Females 9-52 BILIRUBIN TOTAL 0.2(L) 0.3 - 1.2 mg/dL INTERFACE SYSTEM Comment: As of [address] [facility] has changed testing methods. The new reference range is 0.3-1.2 The old referance range was 0.2-1.4 08/09/2005 6:10 PM CDT us Historical Provider CHEMISTRY ORDERABLES Final R esult INTERFACE SYSTEM Refer to clinic/hospital department * (ABNORMAL) CBC WITH DIFFERENTIAL (08/09/2005 6:10 PM CDT) WBC 12.8(H) 4.5 - 11.0 K/ul INTERFACE SYSTEM RBC 4.51 4.20 - 5.40 Mil/ul INTERFACE SYSTEM HEMOGLOBIN 14.0 12.0 - 16.0 g/dL INTERFACE SYSTEM HEMATOCRIT 42.5 36.0 - 46.0 % INTERFACE SYSTEM MCV 94.2 84.0 - 103.0 Fl INTERFACE SYSTEM MCH 31.0 27.0 - 34.0 pg INTERFACE SYSTEM MCHC 32.9 30.0 - 35.0 g/dL INTERFACE SYSTEM RDW 12.8 11.0 - 14.5 % INTERFACE SYSTEM PLATELETS 381 140 - 440 K/ul INTERFACE SYSTEM MPV 9.4 8.9 - 12.8 Fl INTERFACE SYSTEM NEUTROPHILS 72.6 42.2 - 75.2 % INTERFACE SYSTEM LYMPHOCYTES 22.7(L) 24.0 - 44.0 % INTERFACE SYSTEM MONOCYTES 4.2 2.0 - 10.0 % INTERFACE SYSTEM EOSINOPHILS 0.3 0.0 - 7.0 % INTERFACE SYSTEM BASOPHILS 0.2 0.0 - 1.0 % INTERFACE SYSTEM NEUTROPHIL ABSOLUTE 9.3(H) 2.0 - 8.0 K/uL INTERFACE SYSTEM LYMPHOCYTE ABSOLUTE 2.9 1.2 - 4.0 K/ul INTERFACE SYSTEM MONOCYTE ABSOLUTE 0.5 0.1 - 0.6 K/ul INTERFACE SYSTEM EOSINOPHIL ABSOLUTE 0.0 0.0 - 0.7 K/ul INTERFACE SYSTEM BASOPHILS ABSOLUTE 0.0 0.0 - 0.2 K/ul INTERFACE SYSTEM 08/09/2005 6:10 PM CDT us Historical Provider HEMATOLOGY ORDERABLES Final Result Performing Organization Address City/State/[facility] Co de Phone Number INTERFACE SYSTEM Refer to clinic/hospital department documented in this encounter Visit Diagnoses Diagnosis Pre-operative cardiovascular examination- Primary documented in this encounter Care Teams Cad Draftsman Relationship Specialty Start Date End Date Gus Booker MD [facility] [place] [address] PCP - General Family Practice 03/19/15 documented as of this encounter
--- OUTSIDE RECORDS SUMMARY | 2025-03-08 00:09 | XMS_ITS | Encounter Summary ---
Author Organization [facility] Address [address] [place] [address] Care Team Providers Care Asset Coordinator Name Role Phone Gus Booker MD Primary Care Provider [phone] Reason for Referral * Radiology Services (Routine) - Closed Specialty Diagnoses / Procedures Referred By Contac t Referred To Contact Radiology Diagnoses Visit for screening mammogram Procedures MAMMO SCRN BILAT 3D NUPUR W OR WO CAD CHG SCREENING MAMMOGRAPHY BI 2-VIEW BREAST INC CAD CHG SCREENING DIGITAL BREAST TOMOSYNTHESIS BI Gus Booker MD [address] [facility] [place] [place] [address] Phone: tel: fax: [facility] [address] [address] Phone: tel: fax: Referral ID Status Reason Start Date Expiration Date Visits Re quested Visits Authorized [id number] Closed 03/18/2020 04/18/2021 1 1 DING PRINCIPAL Encounter Details Date Type Department Care Team (Latest Contact Info) Description 03/18/2020 Ancillary Orders [facility] Pre-Registration [place] CALL TO MAKE APPOINTMENT ONLY [address] [place] [address] Gus Booker MD [address] [place] [address] Visit for screening mammogram Social History Tobacco Use Types Packs/Day Years Used Date Smoking Tobacco: Never Smokeless Tobacco: Never Alcohol Use Standard Drinks/Week Comments No 0 (1 standard drink = 0.6 oz pur e alcohol) Comments No Sex and Gender Information Value Date Recorded Sex Assigned at Not on file 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 Gender Identity Not on file Sexual Orientation Not on file Occupation Industry Job Start Date Job End Date Not on file Not on file Not on file Not on file documented as of this encounter Plan of Treatment Not on file documented as of this encounter Results * MAMMO SCRN BILAT 3D NUPUR W OR WO CAD (08/08/2020 2:22 PM CDT) Anatomical Region Laterality Modality Breast Bilateral Mammography Narrative 08/12/2020 3:49 PM CDT Bilateral Digital Mammogram with CAD and 3D Tomography Reason for Exam: Screening Comparison: Compared to: 03/21/2019 MAMMO DIAG UNI RIGHT 3D NUPUR W OR WO CAD, 03/08/2019 MAMMO SCRN BILAT 3D NUPUR W OR WO CAD, 01/03/2018 MAMMO DIAGNOSTIC BILATERAL W OR WO CAD, and 06/10/2017 MAMMO DIAGNOSTIC UNI LEFT W OR WO CAD Technique: 3D MLO and CC digital tomosynthesis images were acquired and synthesized 2D images (C view) were generated. This digital mammogram was also analyzed by the Computer Aided Detection System CAD). Breast Composition: There are scattered areas of fibroglandular density. There are no suspicious masses, areas of architectural distortions, or microcalcifications to suggest malignancy. No significant new findings since the prior mammogram(s). Gus Booker MD MAMMO ORDERABLES Final Result documented in this encounter Visit Diagnoses Diagnosis Visit for screening mammogram Other screening mammogram Visit for screening mammogram Other screening mammogram documented in this encounter Care Teams Asset Coordinator Relationship Specialty Start Date End Date Gus Booker MD [address] [place] [phone] PCP - General Family Practice 03/19/15 documented as of this encounter
--- OUTSIDE RECORDS SUMMARY | 2025-03-08 00:09 | XMS_ITS | Encounter Summary ---
Author Organization [facility] Address [address] [place] [address] Care Team Providers Care Customer Strategy Manager Name Role Phone Gus Booker MD Primary Care Provider [phone] Reason for Referral * Outpatient Services (Routine) - Closed Specialty Diagnoses / Procedures Referred By Contac t Referred To Contact Radiology Diagnoses Encounter for screening mammogram for malignant neoplasm of breast Procedures MAMMO SCREEN BILAT W OR WO CAD Gus Booker MD [address] [facility] [place] [address] Phone: tel: fax: [facility] [address] [facility] [address] [place] [address] Phone: tel: fax: Referral ID Status Reason Start Date Expiration Date V isits Requested Visits Authorized [id number] Closed F [facility] TO SCHEDULE (SGF) 10/28/2016 11/28/2017 1 1 Encounter Details Date Type Department Care Team (Latest Contact Info) Description 10/28/2016 Ancillary Orders [facility] Pre-Registration [place] CALL TO MAKE APPOINTMENT ONLY [address] [place] [address] Gus Booker MD [address] [place] [address] Encounter for screening mammogram for malignant neoplasm of breast Social History Tobacco Use Types Packs/Day Years Used Date Smoking Tobacco: Never Smokeless Tobacco: Never Alcohol Use Standard Drinks/Week Comments No 0 (1 standard drink = 0.6 oz pur e alcohol) Comments No Sex and Gender Information Value Date Recorded Sex Assigned at Not on file 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 [id number] Narrative 11/15/2016 3:06 PM CDT Screening Mammogram 11/12/2016 Bilateral craniocaudal and oblique views show average breast density. Comparison is made with prior exams of 10/29/2015, 08/29/2014, 08/23/2013, 07/13/2012, and 05/13/2011. No suspicious calcifications are seen. No change is seen on the right. However, on the left, there is a new ill-defined density laterally between the 3 and 5:00 position and this will require further evaluation. This mammogram was also analyzed by the Computer Aided Detection System (CAD), [employer] ([employer] ImageChecker, Version 8.3. us External Provider [facility] MAMMO ORDERABLES Final Res ult documented in this encounter Visit Diagnoses Diagnosis Encounter for screening mammogram for malignant neoplasm of breast Other screening mammogram Encounter for screening mammogram for malignant neoplasm of breast Other screening mammogram documented in this encounter Care Teams Customer Strategy Manager Relationship Specialty Start Date End Date Gus Booker MD [address] [place] [phone] PCP - General Family Practice 03/19/15 documented as of this encounter
--- OUTSIDE RECORDS SUMMARY | 2025-03-08 00:09 | XMS_ITS | Encounter Summary ---
Author Organization [facility] Address [address] [place] [address] Care Team Providers Care Pharmacy Customer Care Specialist Name Role Phone Gus Booker MD Primary Care Provider [phone] Encounter Details Date Type Department Care Team (Latest Contact Info) Description 12/10/2003 Outpatient Historical [facility] [address] [facility] [address] [place] [address] Mayur Vance MD NO ADDRESS ON FILE SCREENING MAMM-MAILG NEOPL-OTHER (Primary Dx) Social History Tobacco Use Types Packs/Day Years Used Date Smoking Tobacco: Never Assessed Comments Unknown Sex and Gender Information Value Date Recorded Sex Assigned at Not on file 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
--- OUTSIDE RECORDS SUMMARY | 2025-03-08 00:09 | XMS_ITS | Encounter Summary ---
Author Organization [facility] Address [address] [place] [address] Care Team Providers Care Mechanical Maintenance Supervisor Name Role Phone Gus Booker MD Primary Care Provider [phone] Encounter Details Date Type Department Care Team (Latest Contact Info) Description 07/28/2005 Outpatient 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 Addendum by Provider, Historical on 03/07/2009 6:24 PM SHORTS SIFTER The patient returned for radioactive uptake measurement over the neck at 24 hours, which was 23.4%, which lies at the upper end of the euthyroid range. jaw Dictated By: Ajith Ji M.D. Electronically Signed By: Ajith Ji M.D. Date Signed: 07/29/05 JAW Narrative 01/09/2009 7:49 AM CDT 07/28/2005 Radiopharmaceutical: I-123 (iodine-123) sodium iodide Dose: 437 uCi Reason for Consultation: Abnormal thyroid imaging examinations. For evaluation. The patient is referred with a dominant right mid thyroid hypoechoic lesion of 2.5 x 2.1 x 1.5 cm observed on recent neck ultrasound. RADIONUCLIDE THYROID IMAGING AND MULTIPLE UPTAKE EXAMINATIONS: Following oral ingestion of the radiopharmaceutical agent, counting was obtained over the anterior neck at six hours with a value of 11.6%, which lies in the euthyroid range. High-resolution imaging was performed demonstrating a large, cold defect involving the lateral aspect of the right lobe of the thyroid which corresponds to a palpable mass which is firm on physical examination. No other obvious abnormalities are observed in tracer distribution in both lobes. IMPRESSION: A solitary dominant, cold mass in the right thyroid lobe of concern for neoplasia. Recommend thin-needle aspiration for histologic diagnosis. [facility] Dictated By: Ajith Ji M.D. Electronically Signed By: Ajith Ji M.D. Date Signed: 07/28/05 [facility] Procedure Note Provider, Historical - 03/05/2009 07/28/2005 Radiopharmaceutical: I-123 (iodine-123) sodium iodide Dose: 437 uCi Reason for Consultation: Abnormal thyroid imaging examinations. For evaluation. The patient is referred with a dominant right mid thyroid hypoechoiclesion of 2.5 x 2.1 x 1.5 cm observed on recent neck ultrasound. RADIONUCLIDE THYROID IMAGING AND MULTIPLE UPTAKE EXAMINATIONS: Following oral ingestion of the radiopharmaceutical agent, counting wasobtained over the anterior neck at six hours with a value of 11.6%, which lies in the euthyroid range. High-resolution imaging was performed demonstrating a large, cold defectinvolving the lateral aspect of the right lobe of the thyroid which corresponds to a palpable mass whichis firm on physical examination. No other obvious abnormalities are observed in tracer distribution inboth lobes. IMPRESSION: A solitary dominant, cold mass in the right thyroid lobe of concern forneoplasia. Recommend thin-needle aspiration for histologic diagnosis. [facility] Dictated By: Ajith Ji M.D. Electronically Signed By: Ajith Ji M.D. Date Signed: 07/28/05 [facility] Rosa Jack MD NM ORDERABLES Edited documented in this encounter Visit Diagnoses Diagnosis Swelling, mass, or lump in head and neck- Primary documented in this encounter Care Teams Mechanical Maintenance Supervisor Relationship Specialty Start Date End Date Gus Booker MD [address] [place] [phone] PCP - General Family Practice 03/19/15 documented as of this encounter
--- OUTSIDE RECORDS SUMMARY | 2025-03-08 00:09 | XMS_ITS | Encounter Summary ---
Author Organization [facility] Address [address] [place] [address] Care Team Providers Care Gardener Name Role Phone Gus Booker MD Primary Care Provider [phone] Encounter Details Date Type Department Care Team (Late st Contact Info) Description 04/03/2015 Ancillary Orders [facility] Pre-Registration [place] CALL TO MAKE APPOINTMENT ONLY [address] [place] [phone] Gus Booker MD [address] [place] [address] Social History Tobacco Use Types Packs/Day Years Used Date Smoking Tobacco: Never Smokeless Tobacco: Never Alcohol Use Standard Drinks/Week Comments No 0 (1 standard drink = 0.6 oz pur e alcohol) Comments No Sex and Gender Information Value Date Recorded Sex Assigned at Not on file 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
--- OUTSIDE RECORDS SUMMARY | 2025-03-08 00:09 | XMS_ITS | Encounter Summary ---
Author Organization [facility] Address [address] [place] [address] Care Team Providers Care Manager Stone Name Role Phone Gus Booker MD Primary Care Provider [phone] Reason for Referral * Outpatient Services (Routine) - Closed Specialty Diagnoses / Procedures Referred By Destiney johnson Referred To Contact Diagnoses Other screening mammogram Procedures MAMMO DIGITAL SCREEN BILAT Rosa Jack MD NO ADDRESS ON FILE [facility] Pre-Registration [place] CALL TO MAKE APPOINTMENT ONLY [address] [place] [address] Phone: tel: fax: Referral ID Status Reason Start Date Expiration Date V isits Requested Visits Authorized [id number] Closed F [facility] TO SCHEDULE (SGF) 05/04/2012 06/04/2013 1 1 RICT OR DISTRICT OFFICE DIRECTOR Encounter Details Date Type Department Care Team (Latest Contact Info) Description 05/04/2012 Ancillary Orders [facility] CALL TO MAKE APPOINTMENT ONLY [address] [place] [address] Rosa Jack MD NO ADDRESS ON FILE Other screening mammogram Social History Tobacco Use Types Packs/Day Years Used Date Smoking Tobacco: Never Smokeless Tobacco: Never Alcohol Use Standard Drinks/Week Comments No 0 (1 standard drink = 0.6 oz pur e alcohol) Comments No Sex and Gender Information Value Date Recorded Sex Assigned at Not on file Legal Sex Female 3:03 AM DISTRICT OR DISTRICT OFFICE DIRECTOR Gender Identity Not on file Sexual Orientation Not on file Occupation Industry Job Start Date Job End Date Not on file Not on file Not on file Not on file documented as of this encounter Plan of Treatment Not on file documented as of this encounter Results * MAMMO DIGITAL SCREEN BILAT (07/13/2012 3:13 PM CDT) Anatomical Region Laterality Modality Breast Bilateral Mammography Narrative 07/14/2012 7:41 AM CDT Bilateral Mammogram Reason for Exam: Screening Comparison: Comparison is made with prior exam(s). Findings: Bilateral CC and MLO views were obtained. This examination was reviewed with the aid of a computer-aided detection system(CAD). The breast tissue density is average. Bilateral breast nodularity is stable. No significant new findings since the prior mammogram(s). Procedure Note Gaby Vance MD - 07/14/2012 Bilateral Mammogram Reason for Exam: Screening Comparison: Comparison is made with prior exam(s). Findings: Bilateral CC and MLO views were obtained. This examination was reviewed with the aid of a computer-aided detectionsystem(CAD). The breast tissue density is average. Bilateral breast nodularity isstable. No significant new findings since the prior mammogram(s). Rosa Jack MD MAMMO ORDERABLES Final Result documented in this encounter Visit Diagnoses Diagnosis Other screening mammogram Other screening mammogram documented in this encounter Care Teams Manager Stone Relationship Specialty Start Date End Date Gus Booker MD [address] [place] [phone] PCP - General Family Practice 03/19/15 documented as of this encounter
--- OUTSIDE RECORDS SUMMARY | 2025-03-08 00:09 | XMS_ITS | Encounter Summary ---
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) Social History Tobacco Use Types Packs/Day Years Used Date Smoking Tobacco: Never Assessed Comments Unknown Sex and Gender Information Value Date Recorded Sex Assigned at Not on file 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 Gender Identity Not on file Sexual Orientation Not on file documented as of this encounter Plan of Treatment Not on file documented as of this encounter Procedures Procedure Name Priority Date/Time Associated Diagnosis Comments CALCIUM LEVEL Routine 08/20/2005 4:55 AM CDT CALCIUM LEVEL Routine 08/19/2005 6:00 PM CDT documented in this encounter Results * CALCIUM LEVEL (08/20/2005 4:55 AM CDT) CALCIUM 8.6 8.4 - 10.5 mg/dL INTERFACE SYSTEM 08/20/2005 4:55 AM CDT us Joby Slater MD CHEMISTRY ORDERABLES Final R esult INTERFACE SYSTEM Refer to clinic/hospital department * CALCIUM LEVEL (08/19/2005 6:00 PM CDT) CALCIUM 8.5 8.4 - 10.5 mg/dL INTERFACE SYSTEM 08/19/2005 6:00 PM CDT us Joby Slater MD CHEMISTRY ORDERABLES Final R esult INTERFACE SYSTEM Refer to clinic/hospital department documented in this encounter Visit Diagnoses Diagnosis Malignant neoplasm of thyroid gland (CMS/HCC)- Primary Malignant neoplasm of thyroid gland documented in this encounter Care Teams Claims Configuration Analyst Relationship Specialty Start Date End Date Gus Booker MD [address] [place] [phone] PCP - General Family Practice 03/19/15 documented as of this encounter
--- OUTSIDE RECORDS SUMMARY | 2025-03-08 00:09 | XMS_ITS | Encounter Summary ---
Author Organization [facility] Address [address] [place] [address] Care Team Providers Care Electrical Continuity Inspector Name Role Phone Gus Booker MD Primary Care Provider [phone] Encounter Details Date Type Department Care Team (Late st Contact Info) Description 02/10/2007 Outpatient Historical [facility] [address] [place] [phone] Macho Jones MD NO ADDRESS ON FILE Social History Tobacco Use Types Packs/Day Years Used Date Smoking Tobacco: Never Assessed Comments Unknown Sex and Gender Information Value Date Recorded Sex Assigned at Not on file 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
--- OUTSIDE RECORDS SUMMARY | 2025-03-08 00:09 | XMS_ITS | Encounter Summary ---
Author Organization [facility] Address [address] [place] [address] Care Team Providers Care Health Care Law Specialist Name Role Phone Gus Booker MD Primary Care Provider [phone] Encounter Details Date Type Department Care Team (Latest Contact Info) Description 08/13/2005 [facility] [address] [place] [address] Rosa Jack MD NO ADDRESS ON FILE Unspecified Chest Pain (Primary Dx) Social History Tobacco Use Types Packs/Day Years Used Date Smoking Tobacco: Never Assessed Comments Unknown Sex and Gender Information Value Date Recorded Sex Assigned at Not on file 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 Gender Identity Not on file Sexual Orientation Not on file documented as of this encounter Plan of Treatment Not on file documented as of this encounter Procedures Procedure Name Priority Date/Time Associated Diagnosis Comments STRESS TEST EXERCISE NUCLEAR MED Routine 08/13/2005 12:01 AM CDT NM MYOCARD PERF IMAG SPECT MULT Routine 08/13/2005 12:01 AM CDT documented in this encounter Results * NM MYOCARD PERF IMAG SPECT MULT (08/13/2005 12:01 AM CDT) 08/13/2005 12:0 1 AM CDT Narrative INTERFACE SYSTEM - 01/09/2009 7:50 AM CDT 08/13/2005 Radiopharmaceutical: Tc-99m (technetium-99m) tetrofosmin (rest) Dose: 9.63 mCi Tc-99m (technetium-99m) tetrofosmin (stress) 29.5 mCi Reason for Consultation: Chest pain, at risk for coronary artery disease. For presurgical evaluation of myocardial perfusion reserve / risk. RADIONUCLIDE MYOCARDIAL PERFUSION SPECT REST / STRESS WALL MOTION EJECTION FRACTION EVALUATION: Myocardial perfusion SPECT imaging was performed at rest and following pharmacologic intervention with adenosine. Rotating planar and tomographic slices demonstrate the left ventricular chamber to be normal in size without transient dilation, pulmonary accumulation, or important motion. Transient ischemic dilation index is normal at 0.88. Tomographic slices demonstrate reversible changes in the anterior and lateral wall regions. Gated tomographic imaging at rest following stress injection of tracer demonstrates physiologic thickening and excursion in all segments. Left ventricular end-diastolic volume is 51 mL. Left ventricular ejection fraction is 89%. IMPRESSION: 1. Reversible / ischemic changes are present anteriorly and laterally, of concern for critically obstructed coronary artery disease in the left anterior descending / diagonal branch and left circumflex artery distributions. 2. Normal regional and global left ventricular systolic function with viable myocardium throughout the left ventricle. 3. Negative electrocardiographic response to pharmacologic intervention. These findings were verbally conveyed to the attending physician. festus Dictated By: Ajith Ji M.D. Electronically Signed By: Ajith Ji M.D. Date Signed: 08/13/05 FESTUS Procedure Note Provider, Historical - 03/05/2009 08/13/2005 Radiopharmaceutical: Tc-99m (technetium-99m) tetrofosmin (rest) Dose: 9.63 mCi Tc-99m (technetium-99m) tetrofosmin (stress) 29.5 mCi Reason for Consultation: Chest pain, at risk for coronary artery disease. For presurgicalevaluation of myocardial perfusion reserve / risk. RADIONUCLIDE MYOCARDIAL PERFUSION SPECT REST / STRESS WALL MOTION EJECTIONFRACTION EVALUATION: Myocardial perfusion SPECT imaging was performed at rest and followingpharmacologic intervention with adenosine. Rotating planar and tomographic slices demonstrate the left ventricularchamber to be normal in size without transient dilation, pulmonary accumulation, or important motion.Transient ischemic dilation index is normal at 0.88. Tomographic slices demonstrate reversible changes in the anterior andlateral wall regions. Gated tomographic imaging at rest following stress injection of tracerdemonstrates physiologic thickening and excursion in all segments. Left ventricular end-diastolicvolume is 51 mL. Left ventricular ejection fraction is 89%. IMPRESSION: 1. Reversible / ischemic changes are present anteriorly and laterally, ofconcern for critically obstructed coronary artery disease in the left anterior descending / diagonal branchand left circumflex artery distributions. 2. Normal regional and global left ventricular systolic function with viablemyocardium throughout the left ventricle. 3. Negative electrocardiographic response to pharmacologic intervention. These findings were verbally conveyed to the attending physician. jaw Dictated By: Ajith Ji M.D. Electronically Signed By: Ajith Ji M.D. Date Signed: 08/13/05 JAW us Rosa Jack MD [place] ORDERABLES Final Result INTERFACE SYSTEM Refer to clinic/hospital department * STRESS TEST,EXERCISE, NUCLEAR MED (08/13/2005 12:01 AM CDT) 08/13/2005 12:0 1 AM CDT Narrative INTERFACE SYSTEM - 01/09/2009 7:50 AM CDT 08/13/2005 Reason for Consultation: Pre thyroid surgery evaluation of myocardial perfusion reserve / risk. History of chest pain, at risk for coronary artery disease. CARDIAC STRESS TEST WITH ADENOSINE PROVOCATION, MONITORING, AND INTERPRETATION: Dr. Ji monitored the intervention and administered the pharmacologic agents. Pharmacologic intervention was selected due to patient's limited exercise ability / deconditioning. Following the intravenous infusion of 51.7 mg of adenosine over four minutes, the radiopharmaceutical agent was injected at maximum effect at two minutes. Resting heart rate of 85 increased to 113, and blood pressure of 120/72 was measured at 118/70 at maximum effect. The patient experienced flushing and upper body pressure transiently during the intervention which subsequently resolved. Electrocardiographic monitoring demonstrated no changes diagnostic of ischemia nor dysrhythmia. The patient was asymptomatic and stable when discharged from the stress area. IMPRESSION: Satisfactory pharmacologic stress in preparation for myocardial perfusion imaging. There was no electrocardiographic evidence of ischemia. Myocardial perfusion imaging report to follow. festus Dictated By: Ajith Ji M.D. Electronically Signed By: Ajith Ji M.D. Date Signed: 08/13/05 FESTUS Procedure Note Provider, Historical - 03/05/2009 08/13/2005 Reason for Consultation: Pre thyroid surgery evaluation of myocardial perfusion reserve / risk.History of chest pain, at risk for coronary artery disease. CARDIAC STRESS TEST WITH ADENOSINE PROVOCATION, MONITORING, ANDINTERPRETATION: Dr. Ji monitored the intervention and administered thepharmacologic agents. Pharmacologic intervention was selected due to patient's limited exercise ability /deconditioning. Following the intravenous infusion of 51.7 mg of adenosine over fourminutes, the radiopharmaceutical agent was injected at maximum effect at two minutes. Resting heart rateof 85 increased to 113, and blood pressure of 120/72 was measured at 118/70 at maximum effect. Thepatient experienced flushing and upper body pressure transiently during the intervention which subsequentlyresolved. Electrocardiographic monitoring demonstrated no changes diagnostic ofischemia nor dysrhythmia. The patient was asymptomatic and stable when discharged from the stress area. IMPRESSION: Satisfactory pharmacologic stress in preparation for myocardial perfusionimaging. There was no electrocardiographic evidence of ischemia. Myocardial perfusion imaging report to follow. festus Dictated By: Ajith Ji M.D. Electronically Signed By: Ajith Ji M.D. Date Signed: 08/13/05 FESTUS Rosa Jack MD NM ORDERABLES Final Result INTERFACE SYSTEM Refer to clinic/hospital department documented in this encounter Visit Diagnoses Diagnosis Chest pain, unspecified- Primary documented in this encounter Care Teams Health Care Law Specialist Relationship Specialty [place] [address] [place] [phone] PCP - General Family Practice 03/19/15 documented as of this encounter
--- OUTSIDE RECORDS SUMMARY | 2025-03-08 00:09 | XMS_ITS | Encounter Summary ---
Author Organization [facility] Address [address] [place] [address] Care Team Providers Care Apparel Merchandiser Name Role Phone Gus Booker MD Primary Care Provider [phone] Encounter Details Date Type Department Care Team (Late st Contact Info) Description 01/29/2007 Outpatient Historical [facility] Specialty Nursing Services [facility] [address] [place] [phone] Macho Jones MD NO ADDRESS ON FILE Social History Tobacco Use Types Packs/Day Years Used Date Smoking Tobacco: Never Assessed Comments Unknown Sex and Gender Information Value Date Recorded Sex Assigned at Not on file 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 Addendum by Provider, Historical on 03/09/2009 7:01 PM LUMBER DRIVER The patient returned 11 days following radioiodine ablative therapy for whole-body imaging inanterior and posterior projections with additional planar imaging over the anterior neck and chest. There is mild diffuse increase of tracer in the thyroid bed. There is tracer accumulation withinthe liver. Impression: Radioiodine accumulation in the thyroid bed and liver consistent with treated thyroidtissue in the neck. - Dictated By: Ajith Ji M.D. Electronically Signed By: Ajith Ji M.D. 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 Elevated thyroglobulin. The patient is a 51-year-old female who was referred for evaluation and treatment of thyroid cancer bymeans of radioiodine. The patient had a prior ablation with 155 mCi on 10/04/2005. Recently she hashad an increase in her thyroglobulin values. A whole-body iodine survey on 11/30/2006 did notdemonstrate obvious normal thyroid tissue or functioning metastatic disease. Her recentthyroglobulin level was 11.6 on 12/02/2006. Her TSH on 01/25/2007 was 95.5 micro-IU permilliliter. The procedure and complications were fully explained to the patient. With relative good understanding,she signed the appropriate consent form. Following an overnight fast, the patient was administered 161 mCi of I-131 sodium iodide orallywithout difficulty. She was instructed not to eat or drink anything for two hours followingadministration of this dose. She was then instructed to not have seafood or iodine containingmedications for three days. She was asked to drink an extra amount of fluid with frequent emptyingof her bladder. She was also instructed to suck on lemon wedges to reduce the incidence of salivarygland inflammation. The radiation safety precautions were explained to the patient, and she wasgiven a pamphlet outlining these precautions. Follow-up will be with Dr. Jimi Jones. - Dictated By: Hai Kauffman M.D. Electronically Signed By: Hai Kauffman M.D. 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 Elevated thyroglobulin. The patient is a 51-year-old female who was referred for evaluation andtreatment of thyroid cancer bymeans of radioiodine. The patient had a prior ablation with 155 mCi on10/04/2005. Recently she hashad an increase in her thyroglobulin values. A whole-body iodine survey on11/30/2006 did notdemonstrate obvious normal thyroid tissue or functioning metastatic disease. Herrecentthyroglobulin level was 11.6 on 12/02/2006. Her TSH on 01/25/2007 was 95.5 micro-IU permilliliter. The procedure and complications were fully explained to the patient. Withrelative good understanding,she signed the appropriate consent form. Following an overnight fast, the patient was administered 161 mCi of I-131sodium iodide orallywithout difficulty. She was instructed not to eat or drink anything for two hoursfollowingadministration of this dose. She was then instructed to not have seafood or iodinecontainingmedications for three days. She was asked to drink an extra amount of fluid with frequent emptyingof herbladder. She was also instructed to suck on lemon wedges to reduce the incidence of salivaryglandinflammation. The radiation safety precautions were explained to the patient, and she wasgiven a pamphletoutlining these precautions. Follow-up will be with Dr. Jimi Jones. - Dictated By: Hai Kauffman M.D. Electronically Signed By: Hai Kauffman M.D. Date Signed: 01/31/07 JAW us Macho Jones MD [place] ORDERABLES Edited INTERFACE SYSTEM Refer to clinic/hospital department documented in this encounter Visit Diagnoses Not on filedocumented in this encounter Care Teams Apparel Merchandiser Relationship Specialty Start Date End Date Gus Booker MD [address] [place] [phone] PCP - General Family Practice 03/19/15 documented as of this encounter
--- OUTSIDE RECORDS SUMMARY | 2025-03-08 00:09 | XMS_ITS | Encounter Summary ---
Author Organization [facility] Address [address] [place] [address] Care Team Providers Care Acquisition Consultant Name Role Phone Gus Booker MD Primary Care Provider [phone] Encounter Details Date Type Department Care Team (Late st Contact Info) Description 04/25/2008 Outpatient Historical [facility] Specialty Nursing Services [facility] [address] [place] [phone] Macho Jones MD NO ADDRESS ON FILE Social History Tobacco Use Types Packs/Day Years Used Date Smoking Tobacco: Never Assessed Comments No Sex and Gender Information Value Date Recorded Sex Assigned at Not on file 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
--- OUTSIDE RECORDS SUMMARY | 2025-03-08 00:09 | XMS_ITS | Encounter Summary ---
Author Organization [facility] Address [address] [place] [address] Care Team Providers Care Facetor Name Role Phone Gus Booker MD Primary Care Provider [phone] Encounter Details Date Type Department Care Team (Latest Contact Info) Description 08/25/2005 Outpatient Historical [facility] Gen Spec Surg 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 Gender Identity Not on file Sexual Orientation Not on file documented as of this encounter Plan of Treatment Not on file documented as of this encounter Visit Diagnoses Diagnosis Malig julio thyroid- Primary Malignant neoplasm of thyroid gland 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
--- OUTSIDE RECORDS SUMMARY | 2025-03-08 00:09 | XMS_ITS | Encounter Summary ---
Author Organization [facility] Address [address] [place] [address] Care Team Providers Care Cross Country/Track And Field Coach Name Role Phone Gus Booker MD Primary Care Provider [phone] Encounter Details Date Type Department Care Team (Latest Contact Info) Description 07/20/2005 Outpatient Historical [facility] Imaging [facility] [address] [place] [phone] Rosa Jack MD NO ADDRESS ON FILE Unspecified Disorder of Thyroid (Primary Dx) Social History Tobacco Use Types Packs/Day Years Used Date Smoking Tobacco: Never Assessed Comments Unknown Sex and Gender Information Value Date Recorded Sex Assigned at Not on file 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 CLINICAL HISTORY: Right thyroid lobe lesion. COMPARISON: None. FINDINGS: Right thyroid lobe measures 4.5 cm long x 1.9 cm AP x 2.3 cm transverse while the left thyroid lobe measures 4.4 cm long x 1.2 cm AP x 1.4 cm transverse. Two hypoechoic areas are seen in the left thyroid lobe; the largest measuring 7 x 5 x 4 mm. Multiple hypoechoic lesions are seen in the right thyroid lobe; the largest measuring 2.5 x 2.1 x 1.5 cm. Correlation with nuclear medicine thyroid scan recommended. IMPRESSION: Multiple bilateral thyroid hypoechoic lesions likely cystic lesions. The largest in the right mid thyroid lobe measuring 2.5 x 2.1 x 1.5 cm. Correlation with nuclear medicine scan recommended. [facility] Dictated By: Archie Holloway M.D., Ph.D. Electronically Signed By: Archie Holloway M.D., Ph.D. Date Signed: 07/21/05 [facility] Procedure Note Provider, Historical - 03/05/2009 NECK ULTRASOUND DATE: 07/20/05. CLINICAL HISTORY: Right thyroid lobe lesion. COMPARISON: None. FINDINGS: Right thyroid lobe measures 4.5 cm long x 1.9 cm AP x 2.3 cm transversewhile the left thyroid lobe measures 4.4 cm long x 1.2 cm AP x 1.4 cm transverse. Two hypoechoicareas are seen in the left thyroid lobe; the largest measuring 7 x 5 x 4 mm. Multiple hypoechoic lesions areseen in the right thyroid lobe; the largest measuring 2.5 x 2.1 x 1.5 cm. Correlation with nuclearmedicine thyroid scan recommended. IMPRESSION: Multiple bilateral thyroid hypoechoic lesions likely cystic lesions. Thelargest in the right mid thyroid lobe measuring 2.5 x 2.1 x 1.5 cm. Correlation with nuclearmedicine scan recommended. [facility] Dictated By: Archie Holloway M.D., Ph.D. Electronically Signed By: Archie Holloway M.D., Ph.D. Date Signed: 07/21/05 [facility] Rosa Jack MD US ORDERABLES Final Result documented in this encounter Visit Diagnoses Diagnosis Unspecified disorder of thyroid- Primary documented in this encounter Care Teams Cross Country/Track And Field Coach Relationship Specialty Start Date End Date Gus Booker MD [address] [place] [phone] PCP - General Family Practice 03/19/15 documented as of this encounter
--- OUTSIDE RECORDS SUMMARY | 2025-03-08 00:09 | XMS_ITS | Clinical Summary ---
Author Organization [facility] tone Address [address] [place] [address] Care Team Providers Care Air Traffic Control Specialist Name Role Phone Gus Booker MD Primary Care Provider Allergies Active Allergy Reactions Criticality Noted Date Comments Clarithromycin Nausea and Vomiting,Abdominal Pain Low 08/01/2008 Metoclopramide Hcl Headache Low 03/03/2016 Penicillins Anaphylaxis,Unknown High Tetracycline Anaphylaxis,Unknown High Medications olopatadine (PATADAY) 0.2 % OP Drop Administer 1 Drop in both eyes 4 times daily. Active PROPYLENE GLYCOL/PEG 400 (SYSTANE OP) by Ophthalmic route. Active loratadine (CLARITIN) 10 mg Oral Tab Take 10 mg by mouth daily. Alternates Claritin D. Active ERGOCALCIFEROL, VITAMIN D2, (VITAMIN D ORAL) Take by mouth. Activ e ASPIRIN/SOD BICARB/CITRIC ACID (MICAH-SELTZER ORAL) Take by mouth. As needed Active atorvastatin (LIPITOR) 10 mg tablet Take 10 mg by mouth Daily LATE. Active latanoprost (XALATAN) 0.005 % solution 5 Active HYDROcodone-wilber taminophen (NORCO) 5-325 mg tablet Take 1 Tablet by mouth every 8 hours as needed for Pain, Mild or Pain, Moderate. Max Daily Amount: 3 Tablet 40 Tablet 0 5 Active carvedilol (COREG) 6.25 mg tablet 7 Active aspirin (ECOTRIN EC) 81 mg Tablet, Delayed Release (E.C.) Take 81 mg by mouth daily. Active cyanocobalamin (VITAMIN B-12) 1,000 mcg Tablet Take 1,000 mcg by mouth daily. Active buPROPion HCL (WELLBUTRIN XL) 300 mg Extended Release 24 hour tablet TAKE 1 TABLET BY MOUTH DAILY IN THE REPAIR SPECIALIST 30 Tablet 5 1 Active citalopram (CeleXA) 20 mg tablet TAKE 1 TABLET BY MOUTH AT BEDTIME 30 Tablet 5 1 Active citalopram (CeleXA) 40 mg tablet Take 1 Tablet (40 mg) by mouth daily. 40+20mg daily 30 Tablet 5 1 Active diazePAM (VALIUM) 10 mg tabletIndicatio ns:CARLOS (generalized anxiety disorder) Take 0.5-1 Tablets (5-10 mg) by mouth 2 times daily as needed (severe anxiety, panic or insomnia). 60 Tablet 5 1 Active rOPINIRole (REQUIP) 1 mg tablet Take 1 Tablet (1 mg) by mouth daily at bedtime. 30 Tablet 5 1 Active QUEtiapine (SEROquel) 100 mg tablet Take 1 Tablet (100 mg) by mouth daily at bedtime. TAKE 1 TO 1 AND 1/2 DAILY AT BEDTIME 30 Tablet 5 1 Active lansoprazole (PREVACID) 30 mg Capsule, Delayed Release(E.C.) Take 1 Capsule (30 mg) by mouth two times daily, before breakfast and bedtime. 60 Capsule 11 1 Active levothyroxine 175 mcg tablet Take 1 Tablet (175 mcg) by mouth daily. 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 Major depressive disorder, r ecurrent, in partial remission 11/05/2015 05/19/2016 Major depressive disorder, recurrent episode 5 03/05/2015 Insomnia 07/03/2014 03/05/2015 Referred otalgia 05/14/2010 02/09/2018 Malignant neoplasm of thyroid gland 04/07/2018 Immunizations Immunization Administration Dates Next Due Hepatitis A Vaccine 01/25/1997,06/29/1996 INFLUENZA VACCINE QUADRIVALENT 3 YR UP PF IM Influenza Seasonal Unspecified Formulation IM ,02/03/2017 Family History Medical History Relation Name Comments Cancer Brother 1 Fernando Gastric Cancer Brother 1 Fernando Lung Cancer Brother 2 Heart Disease Father Junito Breast Cancer Maternal Aunt positive resp onse- see media tab Cancer Other Thyroid ca: pos itive responses - see media tab Colon Cancer Neg Hx Ovarian Cancer Neg Hx Relation Name Status Comments Brother 1 Fernando Brother 2 Father Junito Maternal Aunt Other Alive Social History Tobacco Use Types Packs/Day Years Used Date Smoking Tobacco: Never Smokeless Tobacco: Never Alcohol Use Standard Drinks/Week Comments No 0 (1 standard drink = 0.6 oz pur e alcohol) Comments No Sex and Gender Information Value Date Recorded Sex Assigned at Not on file Legal Sex Female 3:03 AM [employer] Gender Identity Not on file Sexual Orientation Not on file Occupation Industry Job Start Date Job End Date Not on file Not on file Not on file Not on file Last Filed Vital Signs Vital Sign Reading Time Taken Comments Blood Pressure 122/84 10/02/2020 11:02 AM CDT Pulse 93 10/02/2020 11:02 AM CDT Temperature 36.2 C (97.1 F) 05/12/2018 8:51 AM [employer] Respiratory Rate 18 08/01/2018 3:29 PM CDT Oxygen Saturation 96% 10/02/2020 11: 02 AM CDT Inhaled Oxygen Concentration - - Weight 107.6 kg (237 lb 3.2 oz) 021 11:02 AM CDT Height 170.2 cm (5' 7 ) 10/02/2020 11:0 2 AM CDT Body Mass Index 37.15 10/02/2020 11:02 AM CDT Plan of Treatment Health Maintenance Due Date Last Done Comments DTAP/TDAP/TD VACCINES (1 - Tdap) 02/26/1975 PNEUMOCOCCAL VACCINE 50+ YEA RS (1 of 2 - PCV) 02/26/1975 FIT-DNA Q 3 years 02/26/2001 FIT/FOBT Q 1 year 02/26/2001 Flex Sig/CT Colonography Q 5 years 02/26/2001 RSV VACCINE (60+ or ) (1 - Risk 50-74 years 1-dose series) 02/26/2006 ZOSTER VACCINE (1 of 2) 02/26/2006 OSTEOPOROSIS SCREENING 02/26/2021 BREAST CANCER SCREENING 08/08/2021 08/09/19 21, 03/21/2019, 03/08/2019, Additional history exists INFLUENZA VACCINE (#1) 2024 8, 02/03/2017, 03/06/2015 COLORECTAL SCREENING 06/09/2026 06/09/2016, 06/09/2016, 05/18/2006 Colorectal Cancer Screening 06/09/2026 Procedures Procedure Name Priority Date/Time Associated Diagnosis Comments MAMMO 3D NUPUR SCREEN BILAT W OR WO CAD Routine 08/08/2020 2:22 PM CDT Visit for screening mammogram from Last 3 Months or Most Recently Relevant to Health Maintenance Results * MAMMO SCRN BILAT 3D NUPUR [...] Gus Booker MD MAMMO ORDERABLES Final Result from Last 3 Months or Most Recently Relevant to Health Maintenance Insurance [employer] Medicare Part D [facility] Advance Directives For more information, please contact: [phone] * Full Code (Latest Code Status on File) Date Activated Date Inactivated Comments 05/10/2018 7:12 AM 05/12/2018 11:03 AM * Full Code Date Activated Date Inactivated Comments 02/15/2018 8:16 PM 02/18/2018 11:57 AM * Full Code Date Activated Date Inactivated Comments 12/11/2014 8:31 AM 12/11/2014 4:35 PM * Full Code Date Activated Date Inactivated Comments 08/09/2013 6:51 AM 08/09/2013 12:03 PM * Full Code Date Activated Date Inactivated Comments 06/28/2011 7:11 AM 06/28/2011 10:56 AM Care Teams Air Traffic Control Specialist Relationship Specialty Start Date End Date Gus Booker MD [address] [place] [phone] PCP - General Family Practice 03/19/15
--- OUTSIDE RECORDS SUMMARY | 2025-03-08 00:09 | XMS_ITS | Encounter Summary ---
Author Organization [facility] Address [address] [place] [address] Care Team Providers Care Anthropology Faculty Member Name Role Phone Gus Booker MD Primary Care Provider [phone] Reason for Referral * Outpatient Services (Routine) - Closed Specialty Diagnoses / Procedures Referred By Contac t Referred To Contact Radiology Diagnoses Abnormal findings on diagnostic imaging of breast Procedures MAMMO POST US/STEREO GUIDED PROCEDURE LT Gus Booker MD [address] [place] [address] Phone: tel: fax: [facility] [address] [address] Phone: tel: fax: Referral ID Status Reason Start Date Expiration Date Visits Re quested Visits Authorized [id number] Closed 11/17/2016 12/18/2017 1 1 * Outpatient Services (Routine) - Closed Specialty Diagnoses / Procedures Referred By Contac t Referred To Contact Radiology Diagnoses Abnormal findings on diagnostic imaging of breast Procedures MAMMO STEREOTACTIC BREAST BX LT Gus Booker MD [address] [place] [address] Phone: tel: fax: [facility] [address] [facility] [address] [place] [address] Phone: tel: fax: Referral ID Status Reason Start Date Expiration Date Visits Re quested Visits Authorized [id number] Closed 11/17/2016 12/18/2017 1 1 Encounter Details Date Type Department Care Team (Late st Contact Info) Description 11/17/2016 Ancillary Orders [facility] [address] [facility] [address] [place] [address] Gus Booker MD [address] [place] [address] Abnormal findings on diagnostic imaging of breast Social History Tobacco Use Types Packs/Day Years Used Date Smoking Tobacco: Never Smokeless Tobacco: Never Alcohol Use Standard Drinks/Week Comments No 0 (1 standard drink = 0.6 oz pur e alcohol) Comments No Sex and Gender Information Value Date Recorded Sex Assigned at Not on file Legal Sex Female 3:03 AM [employer] Gender Identity Not on file Sexual Orientation Not on file Occupation Industry Job Start Date Job End Date Not on file Not on file Not on file Not on file documented as of this encounter Plan of Treatment Not on file documented as of this encounter Results * MAMMO POST US/STEREO GUIDED PROCEDURE LT (11/30/2016 9:08 AM CDT) Anatomical Region Laterality Modality Breast Left Mammography 11/30/2016 9:08 AM CDT Addenda Addendum by Giovany Huber MD on 12/03/2016 8:42 AM CDT PATHOLOGY REPORT: Benign Left breast, 3 o'clock, lateral - mid posterior depth, stereotactic guided biopsy - benign breast parenchyma with focal duct ectasia and fibrocystic change including sclerosing adenosis, apocrine metaplasia, usual ductal hyperplasia and columnar cell change - benign microcalcifications - no atypia or malignancy. CONCLUSION: Successfully stereotactic guided left breast biopsy with concordant results. RECOMMENDATION: Diagnostic left breast mammogram in six months. [id number] Narrative 11/30/2016 12:44 PM CDT MAMMO STEREOTACTIC BREAST BX LT, MAMMO POST US/STEREO GUIDED PROCEDURE LT The procedure was performed by Dr. Yung Huber. PREPROCEDURE DIAGNOSIS: Benign versus malignant. POSTPROCEDURE DIAGNOSIS: Same INDICATION FOR EXAMINATION: Pertinent images were reviewed of the mass of the Left breast. The procedure was explained to the patient including risks and possible complications and informed consent was obtained. PROCEDURE: The procedure site was marked and a timeout procedure was performed. The patient was placed prone on the stereotactic table. The digital images show the mass in question in the field of view. Stereotactic views were obtained for targeting. The skin was cleaned with antiseptic, local anesthesia was provided with 1% lidocaine and a solution of 1% lidocaine with epinephrine . A small skin incision was made to allow passage of the nine gauge automated vacuum-assisted core biopsy device into the area of concern following stereotactic coordinates. Numerous core samples were retrieved. SPECIMEN RADIOGRAPHY: No specimen radiograph was obtained because there were no calcifications present. CLIP PLACEMENT: A Bard Victoria marker was placed at the biopsy site. The probe was removed. Hemostasis was achieved. Skin was closed and dressed in the usual fashion. The patient tolerated the procedure well. ASSESSMENT: Pathology pending. [id number] Procedure Note Giovany Huber MD - 11/30/2016 MAMMO STEREOTACTIC BREAST BX LT, MAMMO POST US/STEREO GUIDED PROCEDURE LT The procedure was performed by Dr. Yung Huber. PREPROCEDURE DIAGNOSIS: Benign versus malignant. POSTPROCEDURE DIAGNOSIS: Same INDICATION FOR EXAMINATION: Pertinent images were reviewed of the mass of the Left breast. The procedure was explained to the patient including risks and possible complications and informed consent was obtained. PROCEDURE: The procedure site was marked and a timeout procedure was performed. The patient was placed prone on the stereotactic table. The digital images show the mass in question in the field of view. Stereotactic views were obtained for targeting. The skin was cleaned with antiseptic, local anesthesia was provided with 1% lidocaine and a solution of 1% lidocaine with epinephrine . A small skin incision was made to allow passage of the nine gauge automated vacuum-assisted core biopsy device into the area of concern following stereotactic coordinates. Numerous core samples were retrieved. SPECIMEN RADIOGRAPHY: No specimen radiograph was obtained because there were no calcifications present. CLIP PLACEMENT: A Bard Victoria marker was placed at the biopsy site. The probe was removed. Hemostasis was achieved. Skin was closed and dressed in the usual fashion. The patient tolerated the procedure well. ASSESSMENT: Pathology pending. [id number] us External Provider [facility] MAMMO ORDERABLES Edited Re sult - Final * MAMMO STEREOTACTIC BREAST BX LT (11/30/2016 8:51 AM CDT) Anatomical Region Laterality Modality Breast Left Mammography Tissue SPECIMEN FROM BREAST / Unknown 11/30/2016 8:52 AM CDT Addenda Addendum by Giovany Huber MD on 12/03/2016 8:42 AM CDT PATHOLOGY REPORT: Benign Left breast, 3 o'clock, lateral - mid posterior depth, stereotactic guided biopsy - benign breast parenchyma with focal duct ectasia and fibrocystic change including sclerosing adenosis, apocrine metaplasia, usual ductal hyperplasia and columnar cell change - benign microcalcifications - no atypia or malignancy. CONCLUSION: Successfully stereotactic guided left breast biopsy with concordant results. RECOMMENDATION: Diagnostic left breast mammogram in six months. [id number] Narrative 11/30/2016 12:44 PM CDT MAMMO STEREOTACTIC BREAST BX LT, MAMMO POST US/STEREO GUIDED PROCEDURE LT The procedure was performed by Dr. Yung Huber. PREPROCEDURE DIAGNOSIS: Benign versus malignant. POSTPROCEDURE DIAGNOSIS: Same INDICATION FOR EXAMINATION: Pertinent images were reviewed of the mass of the Left breast. The procedure was explained to the patient including risks and possible complications and informed consent was obtained. PROCEDURE: The procedure site was marked and a timeout procedure was performed. The patient was placed prone on the stereotactic table. The digital images show the mass in question in the field of view. Stereotactic views were obtained for targeting. The skin was cleaned with antiseptic, local anesthesia was provided with 1% lidocaine and a solution of 1% lidocaine with epinephrine . A small skin incision was made to allow passage of the nine gauge automated vacuum-assisted core biopsy device into the area of concern following stereotactic coordinates. Numerous core samples were retrieved. SPECIMEN RADIOGRAPHY: No specimen radiograph was obtained because there were no calcifications present. CLIP PLACEMENT: A Bard Victoria marker was placed at the biopsy site. The probe was removed. Hemostasis was achieved. Skin was closed and dressed in the usual fashion. The patient tolerated the procedure well. ASSESSMENT: Pathology pending. [id number] Procedure Note Giovany Huber MD - 11/30/2016 MAMMO STEREOTACTIC BREAST BX LT, MAMMO POST US/STEREO GUIDED PROCEDURE LT The procedure was performed by Dr. Yung Huber. PREPROCEDURE DIAGNOSIS: Benign versus malignant. POSTPROCEDURE DIAGNOSIS: Same INDICATION FOR EXAMINATION: Pertinent images were reviewed of the mass of the Left breast. The procedure was explained to the patient including risks and possible complications and informed consent was obtained. PROCEDURE: The procedure site was marked and a timeout procedure was performed. The patient was placed prone on the stereotactic table. The digital images show the mass in question in the field of view. Stereotactic views were obtained for targeting. The skin was cleaned with antiseptic, local anesthesia was provided with 1% lidocaine and a solution of 1% lidocaine with epinephrine . A small skin incision was made to allow passage of the nine gauge automated vacuum-assisted core biopsy device into the area of concern following stereotactic coordinates. Numerous core samples were retrieved. SPECIMEN RADIOGRAPHY: No specimen radiograph was obtained because there were no calcifications present. CLIP PLACEMENT: A Bard Victoria marker was placed at the biopsy site. The probe was removed. Hemostasis was achieved. Skin was closed and dressed in the usual fashion. The patient tolerated the procedure well. ASSESSMENT: Pathology pending. [id number] External Provider [facility] MAMMO ORDERABLES Edited Re sult - Final documented in this encounter Visit Diagnoses Diagnosis Abnormal findings on diagnostic imaging of breast Other (abnormal) findings on radiological examination of breast Abnormal findings on diagnostic imaging of breast Other (abnormal) findings on radiological examination of breast Abnormal findings on diagnostic imaging of breast Other (abnormal) findings on radiological examination of breast documented in this encounter Care Teams Anthropology Faculty Member Relationship Specialty Start Date End Date Gus Booker MD [address] [place] [phone] PCP - General Family Practice 03/19/15 documented as of this encounter
--- OUTSIDE RECORDS SUMMARY | 2025-03-08 00:09 | XMS_ITS | Encounter Summary ---
Author Organization [facility] Address [address] [place] [address] Care Team Providers Care Credit Risk Review Officer Name Role Phone Gus Booker MD Primary Care Provider Reason for Referral * Outpatient Services (Routine) - Closed Specialty Diagnoses / Procedures Referred By Contac t Referred To Contact Diagnoses Papillary carcinoma of thyroid (CMS/HCC) Procedures CT CHEST W CONTRAST Macho Jones MD [facility] Pre-Registration [place] CALL TO MAKE APPOINTMENT ONLY [address] [place] [address] Phone: tel: fax: Referral ID Status Reason Start Date Expiration Date V isits Requested Visits Authorized [id number] Closed F [facility] TO SCHEDULE ([facility]) 12/30/2016 01/30/2018 1 1 Encounter Details Date Type Department Care Team (Late st Contact Info) Description 12/30/2016 Ancillary Orders [facility] [address] [place] [phone] Macho Jones MD NO ADDRESS ON FILE Papillary carcinoma of thyroid (CMS/HCC) Social History Tobacco Use Types Packs/Day Years Used Date Smoking Tobacco: Never Smokeless Tobacco: Never Alcohol Use Standard Drinks/Week Comments No 0 (1 standard drink = 0.6 oz pur e alcohol) Comments No Sex and Gender Information Value Date Recorded Sex Assigned at Not on file 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 Exam: CT CHEST W CONTRAST Date/Time of Exam: 01/12/2017 11:54 AM Reason For Exam: Papillary carcinoma of thyroid. Technique: CT of the chest was performed following the administration of intravenous contrast. Contrast: 75 mL Isovue-300. Comparison: 05/11/2012. Findings: The thoracic inlet is within normal limits. No axillary or intrathoracic lymphadenopathy is identified. The heart is normal in size. There is no pericardial effusion. The thoracic aorta and pulmonary arteries are within normal limits. The tracheobronchial tree is clear. No pulmonary consolidation, pleural effusion or pneumothorax is identified. A few small pulmonary micronodules are present which demonstrate long-term stability compatible with benign pathology. No new suspicious pulmonary lesions are identified. No significant subcutaneous soft tissue or upper abdominal pathology is identified. The osseous structures appear grossly intact and show osteopenia and mild degenerative changes. No suspicious osseous lesions are identified. IMPRESSION: No evidence of thoracic metastatic disease. [id number] Narrative Procedure Note Mik Weber, DO - 01/12/2017 IMPRESSION IMPRESSION: Please see below. Exam: CT CHEST W CONTRAST Date/Time of Exam: 01/12/2017 11:54 AM Reason For Exam: Papillary carcinoma of thyroid. Technique: CT of the chest was performed following the administration of intravenous contrast. Contrast: 75 mL Isovue-300. Comparison: 05/11/2012. Findings: The thoracic inlet is within normal limits. No axillary or intrathoracic lymphadenopathy is identified. The heart is normal in size. There is no pericardial effusion. The thoracic aorta and pulmonary arteries are within normal limits. The tracheobronchial tree is clear. No pulmonary consolidation, pleural effusion or pneumothorax is identified. A few small pulmonary micronodules are present which demonstrate long-term stability compatible with benign pathology. No new suspicious pulmonary lesions are identified. No significant subcutaneous soft tissue or upper abdominal pathology is identified. The osseous structures appear grossly intact and show osteopenia and mild degenerative changes. No suspicious osseous lesions are identified. IMPRESSION: No evidence of thoracic metastatic disease. [id number] ORDERABLES Final Result documented in this encounter Visit Diagnoses Diagnosis Papillary carcinoma of thyroid (CMS/HCC) Malignant neoplasm of thyroid gland Papillary carcinoma of thyroid (CMS/HCC) Malignant neoplasm of thyroid gland documented in this encounter Care Teams Credit Risk Review Officer Relationship Specialty Start Date End Date Gus Booker MD [address] [place] [phone] PCP - General Family Practice 03/19/15 documented as of this encounter
--- OUTSIDE RECORDS SUMMARY | 2025-03-08 00:10 | XMS_ITS | Encounter Summary ---
Author Organization [facility] Address [address] [place] [address] Care Team Providers Care Coach Operator Name Role Phone Gus Booker MD Primary Care Provider [phone] Encounter Details Date Type Department Care Team (Latest Contact Info) Description 09/28/2006 Outpatient Historical [facility] Imaging Services [address] [place] [phone] Yosef Kennedy MD NO ADDRESS ON FILE Other Specified Disorders of Thyroid (Primary Dx) Social History Tobacco Use Types Packs/Day Years Used Date Smoking Tobacco: Never Assessed Comments Unknown Sex and Gender Information Value Date Recorded Sex Assigned at Not on file 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 75 mL of Optiray-240were given. History: Recurrent parotitis with right-sided jaw and neck swelling and pain. No comparison study is available. Paranasal sinuses are clear. No significant bony lesion is identified. No salivary calculi areidentified. The nasopharynx, parotid gland and submandibular glands appear within normal limits. Small lymph nodes are scattered throughout the neck. Thyroid gland has been removed. Larynx isunremarkable. No neck mass or abnormal fluid collection is seen. IMPRESSION: Thyroidectomy. Otherwise, unremarkable exam. Salivary glands appear unremarkable. - Dictated By: Edwardo Godoy M.D. Electronically Signed By: Edwardo Godoy M.D. Date Signed: 09/29/06 Procedure Note 03/08/2009 Axial images were obtained through the neck during IV contrastadministration. 75 mL of Optiray-240were given. History: Recurrent parotitis with right-sided jaw and neck swelling and pain. No comparison study is available. Paranasal sinuses are clear. No significant bony lesion is identified. Nosalivary calculi areidentified. The nasopharynx, parotid gland and submandibular glands appear withinnormal limits. Small lymph nodes are scattered throughout the neck. Thyroid gland hasbeen removed. Larynx isunremarkable. No neck mass or abnormal fluid collection is seen. IMPRESSION: Thyroidectomy. Otherwise, unremarkable exam. Salivary glands appearunremarkable. - Dictated By: Edawrdo Godoy M.D. Electronically Signed By: Edwardo Godoy M.D. Date Signed: 09/29/[address] ORDERABLES Final Result documented in this encounter Visit Diagnoses Diagnosis Other specified disorders of thyroid- Primary documented in this encounter Care Teams Coach Operator Relationship Specialty [place] [address] [place] [phone] PCP - General Family Practice 03/19/15 documented as of this encounter
--- OUTSIDE RECORDS SUMMARY | 2025-03-08 00:10 | XMS_ITS | Encounter Summary ---
Author Organization [facility] Address [address] [place] [address] Care Team Providers Care Fishing Tool Operator Name Role Phone Gus Booker MD Primary Care Provider [phone] Encounter Details Date Type Department Care Team (Latest Contact Info) Description 01/10/2007 Outpatient [facility] [address] [place] [address] Rosa Jack MD NO ADDRESS ON FILE Other Screening Mammogram (Primary Dx) Social History Tobacco Use Types Packs/Day Years Used Date Smoking Tobacco: Never Assessed Comments Unknown Sex and Gender Information Value Date Recorded Sex Assigned at Not on file Legal Sex Female 3:03 AM EXCELLENCE SPECIALIST Gender Identity Not on file Sexual Orientation Not on file documented as of this encounter Plan of Treatment Not on file documented as of this encounter Visit Diagnoses Diagnosis Other screening mammogram- Primary documented in this encounter Care Teams Fishing Tool Operator Relationship Specialty Start Date End Date Gus Booker MD [address] [place] [address] PCP - General Family Practice 03/19/15 documented as of this encounter
--- OUTSIDE RECORDS SUMMARY | 2025-03-08 00:10 | XMS_ITS | Encounter Summary ---
Author Organization [facility] Address [address] [place] [address] Care Team Providers Care Continuous Miner Name Role Phone Gus Booker MD Primary Care Provider [phone] Encounter Details Date Type Department Care Team (Latest Contact Info) Description 05/16/2006 Outpatient Historical [facility] Imaging Services-[facility] [address] [place] [phone] Macho Jones MD NO ADDRESS ON FILE Malig Julio Thyroid (Primary Dx); Unspecified Hypothyroidism Social History Tobacco Use Types Packs/Day Years Used Date Smoking Tobacco: Never Assessed Comments Unknown Sex and Gender Information Value Date Recorded Sex Assigned at Not on file Legal Sex Female 3:03 AM INTERNATIONAL EXCHANGE COORDINATOR Gender Identity Not on file Sexual Orientation Not on file documented as of this encounter Plan of Treatment Not on file documented as of this encounter Visit Diagnoses Diagnosis Malig julio thyroid- Primary Malignant neoplasm of thyroid gland Unspecified hypothyroidism documented in this encounter Care Teams Continuous Miner Relationship Specialty Start Date End Date Gus Booker MD [address] [place] [phone] PCP - General Family Practice 03/19/15 documented as of this encounter
--- OUTSIDE RECORDS SUMMARY | 2025-03-08 00:10 | XMS_ITS | Encounter Summary ---
Author Organization [facility] Address [address] [place] [address] Care Team Providers Care Vacuum Evaporation Operator Name Role Phone Gus Booker MD Primary Care Provider [phone] Encounter Details Date Type Department Care Team (Late st Contact Info) Description 07/27/2006 Outpatient [facility] [place] [id number] [facility] [address] [place] [address] aJmes Raman MD NO ADDRESS ON FILE Other Nonspecific Abnormal Serum Enzyme Levels (Primary Dx) Social History Tobacco Use Types Packs/Day Years Used Date Smoking Tobacco: Never Assessed Comments Unknown Sex and Gender Information Value Date Recorded Sex Assigned at Not on file Legal Sex Female 3:03 AM MAIL OFFICER Gender Identity Not on file Sexual Orientation Not on file documented as of this encounter Plan of Treatment Not on file documented as of this encounter Procedures Procedure Name Priority Date/Time Associated Diagnosis Comments HEPATITIS B SURFACE AB IGG Routine 07/27/2006 4:22 PM CDT HEPATITIS C ANTIBODY Routine 07/27/2006 4:22 PM CDT CERULOPLASMIN Routine 07/27/2006 4:22 PM CDT documented in this encounter Results * HEPATITIS C ANTIBODY (07/27/2006 4:22 PM CDT) HEPATITIS C AB Negative Negative INTER FACE SYSTEM Comment: HCV antibody testing is performed by E.I.A. methodology. CDC recommends positive HCV antibody tests have confirmation testing. Low positive results should be confirmed with RIBA. This will determine if results are false positive. If a high positive result is obtained an HCV RNA may be run. The RNA test confirms infection and the level of the RNA, to some extent, helps guide treatment. The same specimen can be used for RIBA and will be held for 7 days. Please contact the Immunology lab if RIBA testing is desired. However, if HCV RNA testing is desired, a new specimen must be collected. Blood should be collected in SST (serum) or EDTA (plasma) separation tubes. Separate serum or plasma from whole blood within 6 hours of collection. Serum or plasma can be transported at refrigerated temperature or frozen and transported. 07/27/2006 4:22 PM CDT Result [facility] James Raman MD CHEMISTRY ORDERABLES Edited Performing Organization Address [facility] Phone Number INTERFACE SYSTEM Refer to clinic/hospital department * HEPATITIS B SURFACE AB IGG (07/27/2006 4:22 PM CDT) HEPATITIS B SURFACE AB Negative INTERFACE SYSTEM Comment: HBsAb is the antibody to HBsAg. HBsAb appears after the disappearance of HBsAg. HBsAg appears appears 6 to 16 weeks following Hepatitis B Infection and disappears usually within 1 - 2 months after onset of symptoms. 07/27/2006 4:22 PM CDT Result [facility] James Raman MD CHEMISTRY ORDERABLES Edited Performing Organization Address [facility] Phone Number INTERFACE SYSTEM Refer to clinic/hospital department * CERULOPLASMIN (07/27/2006 4:22 PM CDT) CERULOPLASMIN 53.5 25.0 - 63.0 mg/dL INTERFACE SYSTEM 07/27/2006 4:22 PM CDT Result [facility] James Raman MD CHEMISTRY ORDERABLES Edited Performing Organization Address [facility] [place] Phone Number INTERFACE SYSTEM Refer to clinic/hospital department documented in this encounter Visit Diagnoses Diagnosis Other nonspecific abnormal serum enzyme levels- Primary documented in this encounter Care Teams Vacuum Evaporation Operator Relationship Specialty Start Date End Date Gus Booker MD [address] [place] [phone] PCP - General Family Practice 03/19/15 documented as of this encounter
--- OUTSIDE RECORDS SUMMARY | 2025-03-08 00:10 | XMS_ITS | Encounter Summary ---
Author Organization [facility] Address [address] [place] [address] Care Team Providers Care Student Worker Name Role Phone Gus Booker MD Primary Care Provider Encounter Details Date Type Department Care Team (Latest Contact Info) Description 02/19/2009 Ancillary Orders [facility] [address] [facility] [address] [place] [address] Rosa Jack MD NO ADDRESS ON FILE Other (Abnormal) Findings on Radiological Examination of Breast Social History Tobacco Use Types Packs/Day Years Used Date Smoking Tobacco: Never Assessed Comments No Sex and Gender Information Value Date Recorded Sex Assigned at Not on file Legal Sex Female 3:03 AM CONSOLE OPERATOR Gender Identity Not on file Sexual Orientation Not on file documented as of this encounter Plan of Treatment Not on file documented as of this encounter Results * MAMMO BREAST US RT (02/19/2009 2:41 PM CONSOLE OPERATOR) Anatomical Region Laterality Modality Breast Right Ultrasound Narrative 02/19/2009 3:57 PM CONSOLE OPERATOR Ultrasound report is included in the diagnostic mammogram report of 02/19/09. Procedure Note Willa Colon MD - 02/21/2009 Ultrasound report is included in the diagnostic mammogram report of02/19/09. us Rosa Jack MD MAMMO ORDERABLES Final Result documented in this encounter Visit Diagnoses Diagnosis Other (abnormal) findings on radiological examination of breast Other (abnormal) findings on radiological examination of breast documented in this encounter Care Teams Student Worker Relationship Specialty Start Date End Date Gus Booker MD [address] [place] [phone] PCP - General Family Practice 03/19/15 documented as of this encounter
--- OUTSIDE RECORDS SUMMARY | 2025-03-08 00:10 | XMS_ITS | Encounter Summary ---
Author Organization [facility] Address [address] [place] [address] Care Team Providers Care Assistant Softball Coach Name Role Phone Gus Booker MD Primary Care Provider [phone] Encounter Details Date Type Department Care Team (Latest Contact Info) Description 12/24/2005 Outpatient Historical [facility] [address] [place] [address] Macho Jones MD NO ADDRESS ON FILE Malig Julio Thyroid (Primary Dx); Unspecified Hypothyroidism Social History Tobacco Use Types Packs/Day Years Used Date Smoking Tobacco: Never Assessed Comments Unknown Sex and Gender Information Value Date Recorded Sex Assigned at Not on file Legal Sex Female 3:03 AM FUEL HANDLER Gender Identity Not on file Sexual Orientation Not on file documented as of this encounter Plan of Treatment Not on file documented as of this encounter Visit Diagnoses Diagnosis Malig julio thyroid- Primary Malignant neoplasm of thyroid gland Unspecified hypothyroidism documented in this encounter Care Teams Assistant Softball Coach Relationship Specialty Start Date End Date Gus Booker MD [address] [place] [phone] PCP - General Family Practice 03/19/15 documented as of this encounter
--- OUTSIDE RECORDS SUMMARY | 2025-03-08 00:10 | XMS_ITS | Encounter Summary ---
Author Organization [facility] Address [address] [place] [address] Care Team Providers Care Forestry Aid Technician Name Role Phone Gus Booker MD Primary Care Provider [phone] Encounter Details Date Type Department Care Team (Late st Contact Info) Description 12/11/2008 Ancillary Orders [facility] [address] [facility] [address] [place] [address] Rosa Jack MD NO ADDRESS ON FILE Other Screening Mammogram Social History Tobacco Use Types Packs/Day Years Used Date Smoking Tobacco: Never Assessed Comments No Sex and Gender Information Value Date Recorded Sex Assigned at Not on file Legal Sex Female 3:03 AM ASSOCIATE CHIEF NURSE Gender Identity Not on file Sexual Orientation Not on file documented as of this encounter Plan of Treatment Not on file documented as of this encounter Visit Diagnoses Diagnosis Other screening mammogram documented in this encounter Care Teams Forestry Aid Technician Relationship Specialty Start Date End Date Gus Booker MD [address] [place] [address] PCP - General Family Practice 03/19/15 documented as of this encounter
--- OUTSIDE RECORDS SUMMARY | 2025-03-08 00:10 | XMS_ITS | Encounter Summary ---
Author Organization [facility] Address [address] [place] [address] Care Team Providers Care Cutting And Boning Supervisor Name Role Phone Gus Booker MD Primary Care Provider [phone] Encounter Details Date Type Department Care Team (Late st Contact Info) Description 10/12/2006 Outpatient Historical [facility] Imaging Services-[facility] [place] [address] [place] [address] Macho Jones MD NO ADDRESS ON FILE Social History Tobacco Use Types Packs/Day Years Used Date Smoking Tobacco: Never Assessed Comments Unknown Sex and Gender Information Value Date Recorded Sex Assigned at Not on file Legal Sex Female 3:03 AM BATTERY FILLER Gender Identity Not on file Sexual Orientation Not on file documented as of this encounter Plan of Treatment Not on file documented as of this encounter Procedures Procedure Name Priority Date/Time Associated Diagnosis Comments US HEAD NECK TISSUES Routine 10/12/2006 2:24 PM CDT documented in this encounter Results * US NECK TISSUES (10/12/2006 2:24 PM CDT) Anatomical Region Laterality Modality Head Other 10/12/2006 2:24 PM CDT Narrative 10/12/2006 2:24 PM CDT NECK ULTRASOUND 10/13/2006 INDICATION: 51-year-old female with history of thyroid carcinoma. Real-time conventional ultrasound of the neck targeted to the thyroid bed was performed and compared to a 05/16/2006 exam. The patient is status post thyroidectomy. A 1.2-cm in maximum diameter hypoechoic lesion with possible small fatty hilum of the right neck is identified. This may represent a lymph node. A 0.4 x 0.2 x 0.3 cm hypoechoic region within the left thyroid bed is present. IMPRESSION: 1. Status post thyroidectomy with 0.4-cm hypoechoic lesion of the left thyroid bed possibly representing residual thyroid. 2. Probable lymph node of the right neck. jaw Dictated By: Andrey Riddle M.D. Electronically Signed By: Andrey Riddle M.D. Date Signed: 10/13/06 [facility] Procedure Note 03/08/2009 NECK ULTRASOUND 10/13/2006 INDICATION: 51-year-old female with history of thyroid carcinoma. Real-time conventional ultrasound of the neck targeted to the thyroid bedwas performed and compared to a 05/16/2006 exam. The patient is status post thyroidectomy. A 1.2-cm inmaximum diameter hypoechoic lesion with possible small fatty hilum of the right neck is identified.This may represent a lymph node. A 0.4 x 0.2 x 0.3 cm hypoechoic region within the left thyroid bed ispresent. IMPRESSION: 1. Status post thyroidectomy with 0.4-cm hypoechoic lesion of the leftthyroid bed possibly representing residual thyroid. 2. Probable lymph node of the right neck. jaw Dictated By: Andrey Riddle M.D. Electronically Signed By: Andrey Riddle M.D. Date Signed: 10/13/06 [facility] us Macho Jones MD US ORDERABLES Final Result documented in this encounter Visit Diagnoses Not on filedocumented in this encounter Care Teams Cutting And Boning Supervisor Relationship Specialty Start Date End Date Gus Booker MD [employer] [place] [address] PCP - General Family Practice 03/19/15 documented as of this encounter
--- OUTSIDE RECORDS SUMMARY | 2025-03-08 00:10 | XMS_ITS | Encounter Summary ---
Author Organization [facility] Address [address] [place] [address] Care Team Providers Care Yard Supervisor Cotton Gin Name Role Phone Gus Booker MD Primary Care Provider [phone] Encounter Details Date Type Department Care Team (Latest Contact Info) Description 11/28/2006 Outpatient Historical [facility] Specialty Nursing Services [facility] [address] [place] [address] Macho Jones MD NO ADDRESS ON FILE Personal History of Allergy to Penicillin (Primary Dx) Social History Tobacco Use Types Packs/Day Years Used Date Smoking Tobacco: Never Assessed Comments Unknown Sex and Gender Information Value Date Recorded Sex Assigned at Not on file Legal Sex Female 3:03 AM OPERATING SYSTEMS PROGRAMMER Gender Identity Not on file Sexual Orientation Not on file documented as of this encounter Plan of Treatment Not on file documented as of this encounter Procedures Procedure Name Priority Date/Time Associated Diagnosis Comments THYROGLOBULIN, TUMOR MARKER Routine 12/02/2006 10:28 AM CDT documented in this encounter Results * THYROGLOBULIN (12/02/2006 10:28 AM CDT) THYROGLOBULIN See Sep Report INTERFACE SYSTEM 12/02/2006 10:2 8 AM CDT us Macho Jones MD CHEMISTRY ORDERABLES Edited INTERFACE SYSTEM Refer to clinic/hospital department documented in this encounter Visit Diagnoses Diagnosis Personal history of allergy to penicillin- Primary documented in this encounter Care Teams Yard Supervisor Cotton Gin Relationship Specialty Start Date End Date Gus Booker MD [address] [place] [phone] PCP - General Family Practice 03/19/15 documented as of this encounter
--- OUTSIDE RECORDS SUMMARY | 2025-03-08 00:10 | XMS_ITS | Encounter Summary ---
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) Social History Tobacco Use Types Packs/Day Years Used Date Smoking Tobacco: Never Assessed Comments Unknown Sex and Gender Information Value Date Recorded Sex Assigned at Not on file Legal Sex Female 3:03 AM TRUCK MECHANIC Gender Identity Not on file Sexual Orientation Not on file documented as of this encounter Plan of Treatment Not on file documented as of this encounter Visit Diagnoses Diagnosis Atrophic gastritis without mention of hemorrhage- Primary documented in this encounter Care Teams Fire Hazard Inspector Relationship Specialty Start Date End Date Gus Booker MD [address] [place] [phone] PCP - General Family Practice 03/19/15 documented as of this encounter
--- OUTSIDE RECORDS SUMMARY | 2025-03-08 00:10 | XMS_ITS | Encounter Summary ---
Author Organization [facility] Address [address] [place] [address] Care Team Providers Care Certified Nurse Midwife Name Role Phone Gus Booker MD Primary Care Provider [phone] Reason for Referral * Radiology Services (Routine) - Closed Specialty Diagnoses / Procedures Referred By Contac t Referred To Contact Radiology Diagnoses Inconclusive mammography Procedures MAMMO DIAG UNI RIGHT 3D NUPUR W OR WO CAD CHG DIAGNOSTIC MAMMOGRAPHY COMPUTER-AIDED DETCJ UNI CHG DIGITAL BREAST TOMOSYNTHESIS UNILATERAL Gus Booker MD [address] [place] [address] Phone: tel: fax: [facility] [address] [address] Phone: tel: fax: Referral ID Status Reason Start Date Expiration Date Visits Requested Visits Authorized [id number] Closed Performing Department To Schedule (SGF) 03/12/2019 04/11/2020 1 1 RIBUTION LEAD Encounter Details Date Type Department Care Team (Latest Contact Info) Description 03/12/2019 Ancillary Orders [facility] [address] [address] Gus Booker MD [address] [place] [address] Inconclusive mammography Social History Tobacco Use Types Packs/Day Years Used Date Smoking Tobacco: Never Smokeless Tobacco: Never Alcohol Use Standard Drinks/Week Comments No 0 (1 standard drink = 0.6 oz pur e alcohol) Comments No Sex and Gender Information Value Date Recorded Sex Assigned at Not on file Legal Sex Female 3:03 AM DISTRIBUTION LEAD Gender Identity Not on file Sexual Orientation Not on file Occupation Industry Job Start Date Job End Date Not on file Not on file Not on file Not on file documented as of this encounter Plan of Treatment Not on file documented as of this encounter Results * MAMMO DIAG UNI RIGHT 3D NUPUR W OR WO CAD (03/21/2019 2:15 PM DISTRIBUTION LEAD) Anatomical Region Laterality Modality Breast Right Mammography 03/21/2019 1:56 PM DISTRIBUTION LEAD Impressions 03/21/2019 3:03 PM DISTRIBUTION LEAD : The asymmetry does not persist as changed or suspicious and was probably made to appear so by summation artifact. I would recommend routine screening mammogram in one year. Patient received a result/recommendation letter. [id number] Narrative 03/21/2019 3:03 PM DISTRIBUTION LEAD Right diagnostic mammogram 3-D spot nupur CC and MLO imaging with straight mediolateral digital image: 3-D spot nupur synthesis CC and MLO imaging is presented with a straight mediolateral digital image, on this 64-year-old female, to evaluate asymmetry suggested upper outer mid depth on recent screening mammogram 03/08/2019 when compared with multiple previous dating back to 2004. The area does not appear as suspicious or changed on the additional imaging. There is some mild asymmetry, but this appears stable when compared with multiple previous mammograms. No distortion or mass or change is suggested and I suspect the apparent change from previous mammograms was due to summation artifact. us Mammography Self Referral Provider MD TRISH SNOW Final Result documented in this encounter Visit Diagnoses Diagnosis Inconclusive mammography Inconclusive mammogram Inconclusive mammography Inconclusive mammogram documented in this encounter Care Teams Certified Nurse Midwife Relationship Specialty Start Date End Date Gus Booker MD [address] [place] [phone] PCP - General Family Practice 03/19/15 documented as of this encounter
--- OUTSIDE RECORDS SUMMARY | 2025-03-08 00:10 | XMS_ITS | Encounter Summary ---
Author Organization [facility] Address [address] [place] [address] Care Team Providers Care Blood Bank Assistant Name Role Phone Gus Booker MD Primary Care Provider [phone] Encounter Details Date Type Department Care Team (Late st Contact Info) Description 05/18/2006 Outpatient Historical [facility]ology- [place] [id number] [facility] [address] [place] [address] James Raman MD NO ADDRESS ON FILE Benign Julio Lg Bowel (Primary Dx); Other Symptoms Involving Digestive System; Acute Gastritis; Abdominal Pain, Epigastric Social History Tobacco Use Types Packs/Day Years Used Date Smoking Tobacco: Never Assessed Comments Unknown Sex and Gender Information Value Date Recorded Sex Assigned at Not on file Legal Sex Female 3:03 AM TILE SETTER APPRENTICE Gender Identity Not on file Sexual Orientation Not on file documented as of this encounter Plan of Treatment Not on file documented as of this encounter Visit Diagnoses Diagnosis Benign julio lg bowel- Primary Benign neoplasm of colon Other symptoms involving digestive system(787.99) Other symptoms involving digestive system Acute gastritis Acute gastritis without mention of hemorrhage Abdominal pain, epigastric documented in this encounter Care Teams Blood Bank Assistant Relationship Specialty Start Date End Date Gus Booker MD [address] [place] [phone] PCP - General Family Practice 03/19/15 documented as of this encounter
--- OUTSIDE RECORDS SUMMARY | 2025-03-08 00:10 | XMS_ITS | Encounter Summary ---
Author Organization [facility] Address [address] [place] [address] Care Team Providers Care Date Night Caregiver Name Role Phone Gus Booker MD Primary Care Provider [phone] Encounter Details Date Type Department Care Team (Latest Contact Info) Description 05/23/2006 Outpatient Historical [facility] Endocrinology-[place] [address] [place] [address] Macho Jones MD NO ADDRESS ON FILE Malig Julio Thyroid (Primary Dx); Postsurgical Hypothyroidism Social History Tobacco Use Types Packs/Day Years Used Date Smoking Tobacco: Never Assessed Comments Unknown Sex and Gender Information Value Date Recorded Sex Assigned at Not on file Legal Sex Female 3:03 AM TESTER COMPRESSED GASES Gender Identity Not on file Sexual Orientation Not on file documented as of this encounter Plan of Treatment Not on file documented as of this encounter Visit Diagnoses Diagnosis Malig julio thyroid- Primary Malignant neoplasm of thyroid gland Postsurgical hypothyroidism documented in this encounter Care Teams Date Night Caregiver Relationship Specialty Start Date End Date Gus Booker MD [address] [place] [phone] PCP - General Family Practice 03/19/15 documented as of this encounter
--- OUTSIDE RECORDS SUMMARY | 2025-03-08 00:10 | XMS_ITS | Encounter Summary ---
Author Organization [facility] Address [address] [place] [address] Care Team Providers Care Roller Mill Operator Name Role Phone Gus Booker MD Primary Care Provider Encounter Details Date Type Department Care Team (Latest Contact Info) Description 01/21/[address] [facility] Cardiovascular Services [address] [place] [address] 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 Tech: DRD Narrative 01/31/2009 8:14 AM CDT DATE OF EXAM: 01-30-09 @ 11:27 SEGMENTAL LIMB PRESSURES RIGHT LEFT Brachial 139 134 Ankle (PT) 168 145 Ankle (DP) 130 151 Digit 96 122 INDICATION: leg pain, hyperlipidemia Systolic pressure of the right ankle is 168 mm Hg with index of 1.21. Systolic pressure of the left ankle is 151 mm Hg with index of 1.09. Digital pressure was 96 mm Hg on the right and 122 mm Hg on the left. Arterial waveforms appears normal and asymmetrical bilaterally. Digital waveforms appears unremarkable. Procedure Note Haroon Wolfe MD - 01/31/2009 DATE OF EXAM: 01-30-09 @ 11:27 SEGMENTAL LIMB PRESSURES RIGHT LEFT Brachial 139 134 Ankle (PT) 168 145 Ankle (DP) 130 151 Digit 96 122 INDICATION: leg pain, hyperlipidemia Systolic pressure of the right ankle is 168 mm Hg with index of 1.21.Systolic pressure of the left ankle is 151 mm Hg with index of 1.09.Digital pressure was 96 mm Hg on the right and 122 mm Hg on the left.Arterial waveforms appears normal and asymmetrical bilaterally. Digitalwaveforms appears unremarkable. IMPRESSION: Normal resting ankle brachial indices and arterial waveformsbilaterally. Tech: TIMOTHY us Rosa Jack MD US ORDERABLES Final Result * US LOW EXT MICHELLE DUPLEX COMP BILAT (01/30/2009 12:15 PM CDT) Anatomical Region Laterality Modality Lower Extremity Ultrasound Impressions 01/31/2009 8:18 AM CDT : Bilateral lower extremity venous exam demonstrating no evidence of deep or superficial vein thrombosis. Tech: DRD Narrative 01/31/2009 8:18 AM CDT DATE OF EXAM: 01-30-09 @ 11:45 INDICATION: bilateral edema Doppler venous of bilateral lower extremities demonstrates patent flow which is spontaneous, phasic and augments well. Competence is demonstrated. No pulsatility is noted. Imaging is performed at the common femoral, femoral, popliteal, tibial and saphenous areas. Compressibility is demonstrated throughout the deep and superficial systems. No intraluminal echoes are identified. Procedure Note Haroon Wolfe MD - 01/31/2009 DATE OF EXAM: 01-30-09 @ 11:45 INDICATION: bilateral edema Doppler venous of bilateral lower extremities demonstrates patent flowwhich is spontaneous, phasic and augments well. Competence isdemonstrated. No pulsatility is noted. Imaging is performed at the common femoral, femoral, popliteal, tibial andsaphenous areas. Compressibility is demonstrated throughout the deep andsuperficial systems. No intraluminal echoes are identified. IMPRESSION: Bilateral lower extremity venous exam demonstrating no evidence of deep orsuperficial vein thrombosis. Tech: TIMOTHY us Rosa Jack MD ORDERABLES Final Result documented in this encounter Visit Diagnoses Diagnosis Pain in limb Swelling of limb Decreased pedal pulses Other symptoms involving cardiovascular system Pain in limb Swelling of limb Decreased pedal pulses Other symptoms involving cardiovascular system documented in this encounter Care Teams Roller Mill Operator Relationship Specialty Start Date End Date Gus Booker MD [address] [place] [phone] PCP - General Family Practice 03/19/15 documented as of this encounter
--- OUTSIDE RECORDS SUMMARY | 2025-03-08 00:10 | XMS_ITS | Encounter Summary ---
Author Organization [facility] Address [address] [place] [address] Care Team Providers Care Habilitation Training Specialist Name Role Phone Gus Booker MD Primary Care Provider [phone] Encounter Details Date Type Department Care Team (Latest Contact Info) Description 01/10/2007 Outpatient Historical [facility] Breast [place] [address] [facility] [address] [place] [address] Mayur Vance MD NO ADDRESS ON FILE Other Screening Mammogram (Primary Dx) Social History Tobacco Use Types Packs/Day Years Used Date Smoking Tobacco: Never Assessed Comments Unknown Sex and Gender Information Value Date Recorded Sex Assigned at Not on file Legal Sex Female 3:03 AM 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
--- OUTSIDE RECORDS SUMMARY | 2025-03-08 00:10 | XMS_ITS | Encounter Summary ---
Author Organization [facility] Address [address] [place] [address] Care Team Providers Care Toll Repairer Central Office Name Role Phone Gus Booker MD Primary Care Provider [phone] Encounter Details Date Type Department Care Team (Latest Contact Info) Description 10/13/2005 Outpatient Historical [facility] Gen Spec Surg [place] 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
--- OUTSIDE RECORDS SUMMARY | 2025-03-08 00:10 | XMS_ITS | Encounter Summary ---
Author Organization [facility] Address [address] [place] [address] Care Team Providers Care Chemical Processing Supervisor Name Role Phone Gus Booker MD Primary Care Provider [phone] Encounter Details Date Type Department Care Team (Latest Contact Info) Description 07/02/2014 Ancillary Orders [facility] Orthopedics - [facility]opedic [facility] [address] [place] [address] Ty Naqvi MD NO ADDRESS ON FILE Shoulder pain, right (Primary Dx) Social History Tobacco Use Types Packs/Day Years Used Date Smoking Tobacco: Never Smokeless Tobacco: Never Alcohol Use Standard Drinks/Week Comments No 0 (1 standard drink = 0.6 oz pur e alcohol) Comments No Sex and Gender Information Value Date Recorded Sex Assigned at Not on file Legal Sex Female 3:03 AM SENIOR ESCROW OFFICER Gender Identity Not on file Sexual Orientation Not on file Occupation Industry Job Start Date Job End Date Not on file Not on file Not on file Not on file documented as of this encounter Plan of Treatment Not on file documented as of this encounter Results * XR SHOULDER 2+ VW RIGHT (07/02/2014 1:25 PM CDT) Anatomical Region Laterality Modality Upper Extremity Computed Radiogr aphy 07/02/2014 12:4 8 PM CDT Impressions 07/02/2014 1:45 PM CDT IMPRESSION: See report below. Exam: XR SHOULDER 2+ VW RIGHT Date/Time of Exam: Jul 02, 2014 01:25:48 PM Reason For Exam: Pain in joint, shoulder region. Findings: Mild degenerative changes in the acromioclavicular joint and glenohumeral joint are noted. Images were obtained after injection of 12 mL Omnipaque 240 contrast. The images confirm the intra-articular injection of contrast. No rotator cuff tear is identified on these images. Please see the CT scan report of the same day. Impression: 1. Right shoulder arthrogram injection. Please see above. KYLE/[email or web address] - uploaded from [facility] - Narrative Procedure Note Evangelina Aragon MD - 07/02/2014 IMPRESSION IMPRESSION: See report below. Exam: XR SHOULDER 2+ VW RIGHT Date/Time of Exam: Jul 02, 2014 01:25:48 PM Reason For Exam: Pain in joint, shoulder region. Findings: Mild degenerative changes in the acromioclavicular joint and glenohumeral joint are noted. Images were obtained after injection of 12 mL Omnipaque 240 contrast. The images confirm the intra-articular injection of contrast. No rotator cuff tear is identified on these images. Please see the CT scan report of the same day. Impression: 1. Right shoulder arthrogram injection. Please see above. Fred - uploaded from [facility] - us Ty Naqvi MD DIAGNOSTIC IMAGING ORDERABLE S Final Result documented in this encounter Visit Diagnoses Diagnosis Shoulder pain, right- Primary Pain in joint, shoulder region Shoulder pain, right Pain in joint, shoulder region documented in this encounter Care Teams Chemical Processing Supervisor Relationship Specialty Start Date End Date Gus Booker MD [address] [place] [phone] PCP - General Family Practice 03/19/15 documented as of this encounter
--- OUTSIDE RECORDS SUMMARY | 2025-03-08 00:10 | XMS_ITS | Encounter Summary ---
Author Organization [facility] Address [address] [place] [address] Care Team Providers Care Coupon Collection Clerk Name Role Phone Gus Booker MD Primary Care Provider Encounter Details Date Type Department Care Team (Late st Contact Info) Description 07/27/2006 Outpatient [facility] Gastroenterology[address] [place] [phone] James Raman MD NO ADDRESS ON FILE Nonspecific Abnormal Results of Liver Function Study (Primary Dx) Social History Tobacco Use Types Packs/Day Years Used Date Smoking Tobacco: Never Assessed Comments Unknown Sex and Gender Information Value Date Recorded Sex Assigned at Not on file 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
--- OUTSIDE RECORDS SUMMARY | 2025-03-08 00:10 | XMS_ITS | Encounter Summary ---
Author Organization [facility] Address [address] [place] [address] Care Team Providers Care Guest Relation Officer Name Role Phone Gus oBoker MD Primary Care Provider [phone] Encounter Details Date Type Department Care Team (Latest Contact Info) Description 04/04/2006 Outpatient Historical [facility] Imaging Services-[place] [address] [place] [address] Rosa Jack MD NO ADDRESS ON FILE Unspecified Disorder of Liver (Primary Dx) Social History Tobacco Use Types Packs/Day Years Used Date Smoking Tobacco: Never Assessed Comments Unknown Sex and Gender Information Value Date Recorded Sex Assigned at Not on file Legal Sex Female 3:03 AM PETROLEUM INSPECTOR SUPERVISOR Gender Identity Not on file Sexual Orientation Not on file documented as of this encounter Plan of Treatment Not on file documented as of this encounter Procedures Procedure Name Priority Date/Time Associated Diagnosis Comments CT ABDOMEN PELVIS W CONTRAST Routine 04/04/2006 12:01 AM PETROLEUM INSPECTOR SUPERVISOR documented in this encounter Results * CT ABDOMEN PELVIS W CONTRAST (04/04/2006 12:01 AM PETROLEUM INSPECTOR SUPERVISOR) Anatomical Region Laterality Modality Abdomen Other 04/04/2006 12:0 1 AM PETROLEUM INSPECTOR SUPERVISOR Narrative 04/04/2006 12:01 AM PETROLEUM INSPECTOR SUPERVISOR ABDOMINAL AND PELVIC CT WITH CONTRAST 04/04/2006: Axial tomograms obtained through the abdomen and pelvis with 100 ml of Optiray 350 intravenouscontrast. Oral contrast administered. Visualized lung bases unremarkable. Diffuse fatty infiltration of liver. Remainder of solid upperintra-abdominal organs unremarkable. Surgical absence of gallbladder. No apparent lymphadenopathyby size criteria. Surgical absence of uterus. No free fluid. Small fat containing right inguinalhernia. Few scattered sigmoid diverticula without apparent accompanying change. Large amount ofretained stool. IMPRESSION: Diffuse fatty infiltration of the liver. Large amount of retained stool. Smallfat-containing right inguinal hernia. - Dictated By: Mary Shah M.D. Electronically Signed By: Mary Shah M.D. Date Signed: 04/05/06 Procedure Note Provider, Historical - 03/06/[address] WITH CONTRAST 04/04/2006: Axial tomograms obtained through the abdomen and pelvis with 100 ml ofOptiray 350 intravenouscontrast. Oral contrast administered. Visualized lung bases unremarkable. Diffuse fatty infiltration of liver.Remainder of solid upperintra-abdominal organs unremarkable. Surgical absence ofgallbladder. No apparent lymphadenopathyby size criteria. Surgical absence of uterus. No free fluid. Small fatcontaining right inguinalhernia. Few scattered sigmoid diverticula without apparent accompanying change. Largeamount ofretained stool. IMPRESSION: Diffuse fatty infiltration of the liver. Large amount of retained stool.Smallfat-containing right inguinal hernia. - Dictated By: Mary Shah M.D. Electronically Signed By: Mary Shah M.D. Date Signed: 04/05/[address] ORDERABLES Final Result documented in this encounter Visit Diagnoses Diagnosis Unspecified disorder of liver- Primary documented in this encounter Care Teams Guest Relation Officer Relationship Specialty Start Date End Date Gus Booker MD [address] [place] [phone] PCP - General Family Practice 03/19/15 documented as of this encounter
--- OUTSIDE RECORDS SUMMARY | 2025-03-08 00:10 | XMS_ITS | Encounter Summary ---
Author Organization [facility] Address [address] [place] [address] Care Team Providers Care Director Biomedical Engineering Name Role Phone Gus Booker MD Primary Care Provider [phone] Encounter Details Date Type Department Care Team (Late st Contact Info) Description 11/10/2011 Ancillary Orders [facility] Orthopedics- [address] [place] [address] Ajith Vann MD [address] [place] [phone] Pain Social History Tobacco Use Types Packs/Day Years Used Date Smoking Tobacco: Never Smokeless Tobacco: Never Alcohol Use Standard Drinks/Week Comments No 0 (1 standard drink = 0.6 oz pur e alcohol) Comments No Sex and Gender Information Value Date Recorded Sex Assigned at Not on file Legal Sex Female 3:03 AM MANAGER OF PROJECT MANAGEMENT Gender Identity Not on file Sexual Orientation Not on file Occupation Industry Job Start Date Job End Date Not on file Not on file Not on file Not on file documented as of this encounter Plan of Treatment Not on file documented as of this encounter Results * XR WRIST 2 VW LEFT (11/10/2011 4:56 PM CDT) Anatomical Region Laterality Modality Wrist / Hand Computed Radiogr aphy Narrative 12/01/2011 5:05 PM CDT X-rays were obtained and reviewed today of the left wrist including AP and lateral views. X-rays are normal without any arthritic change. Procedure Note Ajith Vann MD - 12/01/2011 X-rays were obtained and reviewed today of the left wrist including AP andlateral views. X-rays are normal without any arthritic change. us Ajith Vann MD DIAGNOSTIC IMAGING ORDKeith SNOW Final Result documented in this encounter Visit Diagnoses Diagnosis Pain Generalized pain documented in this encounter Care Teams Director Biomedical Engineering Relationship Specialty Start Date End Date Gus Booker MD [address] [place] [phone] PCP - General Family Practice 03/19/15 documented as of this encounter
--- OUTSIDE RECORDS SUMMARY | 2025-03-08 00:10 | XMS_ITS | Encounter Summary ---
Author Organization [facility] Address [address] [place] [address] Care Team Providers Care Clinical Quality Analyst Name Role Phone Gus Booker MD Primary Care Provider [phone] Reason for Referral * Outpatient Services (Routine) - Closed Specialty Diagnoses / Procedures Referred By Contac t Referred To Contact Diagnoses Abnormal EKG Procedures NM MYOCARD PERF IMAG SPECT MULT Gus Booker MD [address] [place] [address] Phone: tel: fax: [facility] Pre-Registration [place] CALL TO MAKE APPOINTMENT ONLY [address] [place] [address] Phone: tel: fax: Referral ID Status Reason Start Date Expiration Date V isits Requested Visits Authorized [id number] Closed F MC TO SCHEDULE (SGF) 04/03/2015 05/03/2016 1 1 PROCESSING OPERATOR Encounter Details Date Type Department Care Team (Latest Contact Info) Description 04/03/2015 Ancillary Orders [facility] Pre-Registration [place] CALL TO MAKE APPOINTMENT ONLY [address] [place] [address] Gus Booker MD [address] [place] [address] Abnormal EKG (Primary Dx) Social History Tobacco Use Types Packs/Day Years Used Date Smoking Tobacco: Never Smokeless Tobacco: Never Alcohol Use Standard Drinks/Week Comments No 0 (1 standard drink = 0.6 oz pur e alcohol) Comments No Sex and Gender Information Value Date Recorded Sex Assigned at Not on file Legal Sex Female 3:03 AM WORD PROCESSING OPERATOR Gender Identity Not on file Sexual Orientation Not on file Occupation Industry Job Start Date Job End Date Not on file Not on file Not on file Not on file documented as of this encounter Plan of Treatment Not on file documented as of this encounter Results * NM MYOCARD PERF IMAG SPECT MULT (04/15/2015 9:59 AM WORD PROCESSING OPERATOR) EJECTION FRACTION 84 50 - 65 percent INTERFACE SYSTEM Risk Stratification INTERFACE SYSTEM 04/15/2015 7:58 AM WORD PROCESSING OPERATOR Narrative INTERFACE SYSTEM - 04/15/2015 10:32 AM WORD PROCESSING OPERATOR Rest/Stress Single Isotope SPECT Myocardial Perfusion Imaging with pharmacologic stress and Gated Ejection Fraction Clinical Indication and History: Abnormal EKG, shortness of breath. Pharmacologic stress testing was performed with Regadenoson 0.4 mg injected intravenously over 10 seconds. Additionally, low-level exercise was performed along with the vasodilator infusion (1 mile per hour for 4 minutes). The resting heart rate was 88 beats per minute and peak heart rate during stress was 122 beats per minute. Blood pressure was 155/88 mmHg at rest and 158/84 mm Hg at peak stress. Blood pressure response was appropriate during the stress procedure. The patient reported shortness of breath, headache, dizziness, chest heaviness during stress test. Aminophylline 50 mg was administered intravenously with good symptom relief. The resting electrocardiogram demonstrated normal sinus rhythm, nonspecific ST-segment changes. During stress, no significant ST-T changes were noted. There was evidence of no significant new arrhythmias. Myocardial perfusion imaging was performed at rest (30 minutes following the intravenous injection of 10.5 mCi of Tc99m Tetrofosmin). At peak pharmacologic effect, the patient was intravenously injected with 31.9 mCi of Tc99m Tetrofosmin. Gated post-stress tomographic imaging was performed 45 minutes after stress. Findings The overall quality of the study is good. There is evidence of soft tissue attenuation artifact. Left ventricular cavity is noted to be normal in size on the rest images without further dilatation on post stress images. SPECT images demonstrate mildly reduced tracer uptake noted the apex on stress images. This was unchanged on resting images. Gated SPECT imaging reveals normal myocardial thickening and wall motion of all visualized segments. The left ventricular ejection fraction was calculated to be 78%, with an end-diastolic volume 73 ml. Impression 1. Myocardial perfusion imaging is probably normal. No obvious reversible defect is noted to suggest significant myocardial ischemia. Small, mild, fixed apical defect which is likely due to attenuation artifact. 2. Global left ventricular systolic function is normal without segmental abnormalities and ejection fraction of 78%. 3. Nonischemic response to stress by electrocardiographic criterion without development of chest pain. 4. No previous study is available for direct comparison. Dr. Sonia MD, [facility] This laboratory has been accredited by the Intersocietal Commission for the Accreditation of Nuclear Medicine Laboratories (ICANL). Procedure Note Gris Scott MD - 04/15/2015 Rest/Stress Single Isotope SPECT Myocardial Perfusion Imaging with pharmacologic stress and Gated Ejection Fraction Clinical Indication and History: Abnormal EKG, shortness of breath. Pharmacologic stress testing was performed with Regadenoson 0.4 mg injected intravenously over 10 seconds. Additionally, low-level exercise was performed along with the vasodilator infusion (1 mile per hour for 4 minutes). The resting heart rate was 88 beats per minute and peak heart rate during stress was 122 beats per minute. Blood pressure was 155/88 mmHg at rest and 158/84 mm Hg at peak stress. Blood pressure response was appropriate during the stress procedure. The patient reported shortness of breath, headache, dizziness, chest heaviness during stress test. Aminophylline 50 mg was administered intravenously with good symptom relief. The resting electrocardiogram demonstrated normal sinus rhythm, nonspecific ST-segment changes. During stress, no significant ST-T changes were noted. There was evidence of no significant new arrhythmias. Myocardial perfusion imaging was performed at rest (30 minutes following the intravenous injection of 10.5 mCi of Tc99m Tetrofosmin). At peak pharmacologic effect, the patient was intravenously injected with 31.9 mCi of Tc99m Tetrofosmin. Gated post-stress tomographic imaging was performed 45 minutes after stress. Findings The overall quality of the study is good. There is evidence of soft tissue attenuation artifact. Left ventricular cavity is noted to be normal in size on the rest images without further dilatation on post stress images. SPECT images demonstrate mildly reduced tracer uptake noted the apex on stress images. This was unchanged on resting images. Gated SPECT imaging reveals normal myocardial thickening and wall motion of all visualized segments. The left ventricular ejection fraction was calculated to be 78%, with an end-diastolic volume 73 ml. Impression 1. Myocardial perfusion imaging is probably normal. No obvious reversible defect is noted to suggest significant myocardial ischemia. Small, mild, fixed apical defect which is likely due to attenuation artifact. 2. Global left ventricular systolic function is normal without segmental abnormalities and ejection fraction of 78%. 3. Nonischemic response to stress by electrocardiographic criterion without development of chest pain. 4. No previous study is available for direct comparison. Dr. Sonia MD, [facility] This laboratory has been accredited by the Intersocietal Commission for the Accreditation of Nuclear Medicine Laboratories (ICANL). External Provider [facility] NM ORDERABLES Final Resu lt INTERFACE SYSTEM Refer to clinic/hospital department documented in this encounter Visit Diagnoses Diagnosis Abnormal EKG- Primary Nonspecific abnormal electrocardiogram (ECG) (EKG) Abnormal EKG Nonspecific abnormal electrocardiogram (ECG) (EKG) documented in this encounter Care Teams Clinical Quality Analyst Relationship Specialty Start Date End Date Gus Booker MD [address] [place] [phone] PCP - General Family Practice 03/19/15 documented as of this encounter
--- OUTSIDE RECORDS SUMMARY | 2025-03-08 00:10 | XMS_ITS | Encounter Summary ---
Author Organization [facility] Address [address] [place] [address] Care Team Providers Care Guard Supervisor Name Role Phone Gus Booker MD Primary Care Provider [phone] Encounter Details Date Type Department Care Team (Latest Contact Info) Description 05/23/2006 Outpatient Historical 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
--- OUTSIDE RECORDS SUMMARY | 2025-03-08 00:10 | XMS_ITS | Encounter Summary ---
Author Organization [facility] Address [address] [place] [address] Care Team Providers Care Patient Day Coordinator Name Role Phone Gus Booker MD Primary Care Provider [phone] Encounter Details Date Type Department Care Team (Late st Contact Info) Description 08/16/2006 Outpatient Historical [facility] James Raman MD NO ADDRESS ON FILE Other Chronic Nonalcoholic Liver Disease (Primary Dx) Social History Tobacco Use Types Packs/Day Years Used Date Smoking Tobacco: Never Assessed Comments Unknown Sex and Gender Information Value Date Recorded Sex Assigned at Not on file 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 Gender Identity Not on file Sexual Orientation Not on file documented as of this encounter Plan of Treatment Not on file documented as of this encounter Procedures Procedure Name Priority Date/Time Associated Diagnosis Comments PT AND APTT Routine 08/16/2006 9:04 AM CDT PLATELET COUNT Routine 08/16/2006 9:04 AM CDT US GUIDE NEEDLE PLACEMENT Routine 08/16/2006 12:01 AM CDT documented in this encounter Results * PLATELET COUNT (08/16/2006 9:04 AM CDT) PLATELETS 262 140 - 440 K/ul INTERFACE SYSTEM 08/16/2006 9:04 AM CDT us James Raman MD HEMATOLOGY ORDERABLES Edite d INTERFACE SYSTEM Refer to clinic/hospital department * PT AND APTT (08/16/2006 9:04 AM CDT) PROTIME 14.9 13.0 - 15.7 Secs INTERFACE SYSTEM Comment: As of 06 note change in normal range. INR 1.0 INTERFACE SYSTEM Comment: Expected Values for INR: DVT/PE Goal INR 2.5; range 2.0 - 3.0 Valve Replacement Tissue Goal INR 2.5; range 2.0 - 3.0 Mechanical Goal INR 3.0; range 2.5 - 3.5 POST-IA Goal INR 2.5; range 2.0 - 3.0 or Goal 3.0; range 2.5 - 3.5 Atrial Fibrillation Goal INR 2.5; range 2.0 - 3.0 Ischemic Stroke Goal INR 2.5; range 2.0 - 3.0 For additional information see Guidelines for Anticoagulation available from the pharmacy [facility]. PTT 31.6 21.6 - 35.6 Secs INTERFACE SYSTEM Comment: Therapeutic Range: Hi-level PE/DVT heparin protocol 80.1 -95.0 sec Lo-level PE/DVT heparin protocol 67.1 - 80.0 sec Cardiac Heparin Protocol 67.1 - 85.0 sec Neuro Heparin Protocol 67.1 - 80.0 sec As of 03/24/2006 note change in APTT Normal Range. 08/16/2006 9:04 AM CDT us James Raman MD HEMATOLOGY ORDERABLES Edite d INTERFACE SYSTEM Refer to clinic/hospital department * US GUIDE NEEDLE PLACEMENT (08/16/2006 12:01 AM CDT) Anatomical Region Laterality Modality Other 08/16/2006 12:0 1 AM CDT Narrative 08/16/2006 12:01 AM CDT PROCEDURE TITLE: ULTRASOUND GUIDED GENERAL LIVER BIOPSY. Date: 08/16/2006. History: This is a patient referred from Dr. James Raman with history of abnormal liver functionstudies. Procedure: Following detailed discussion in regards to this procedure as well as its potentialcomplications and risks with the patient, a written consent was obtained. The patient was placed in a supine position and ultrasound was utilized to evaluate the right upperquadrant for position of the liver as well as for desired site of biopsy. The area was marked,prepped, and draped in the usual sterile fashion and local anesthesia was achieved with 1%lidocaine overlying the proposed needle course. A small stab incision was made with an 11 bladefollowed with the insertion of a 3.9 cm 17-gauge coaxial introducer system and then 2 core biopsieswere obtained with an 18-gauge MELISSA biopsy gun. The stylet was replaced to the introducer and theintroducer removed. The Betadine cleansed from the skin, and a sterile dressing placed. A repeatultrasound was done at that time to verify hemostasis and no obvious bleeding was noted. Thepatient was then transported to the Angio recovery area for a brief observation in stable andcomfortable condition having tolerated the procedure well. - Dictated By: Chester Najera Electronically Signed By: Raj Lan M.D. Date Signed: 08/18/06 [facility] Procedure Note 03/08/2009 PROCEDURE TITLE: ULTRASOUND GUIDED GENERAL LIVER BIOPSY. Date: 08/16/2006. History: This is a patient referred from Dr. James Raman with history ofabnormal liver functionstudies. Procedure: Following detailed discussion in regards to this procedure as well as itspotentialcomplications and risks with the patient, a written consent was obtained. The patient was placed in a supine position and ultrasound was utilized toevaluate the right upperquadrant for position of the liver as well as for desired site ofbiopsy. The area was marked,prepped, and draped in the usual sterile fashion and localanesthesia was achieved with 1%lidocaine overlying the proposed needle course. A small stab incisionwas made with an 11 bladefollowed with the insertion of a 3.9 cm 17-gauge coaxial introducer system andthen 2 core biopsieswere obtained with an 18-gauge MELISSA biopsy gun. The stylet was replaced to theintroducer and theintroducer removed. The Betadine cleansed from the skin, and a sterile dressing placed. Arepeatultrasound was done at that time to verify hemostasis and no obvious bleeding was noted. Thepatientwas then transported to the Angio recovery area for a brief observation in stable andcomfortable conditionhaving tolerated the procedure well. - Dictated By: Chester Najera Electronically Signed By: Raj Lan M.D. Date Signed: 08/18/06 [facility] us James Raman MD ORDERABLES Final Resul t documented in this encounter Visit Diagnoses Diagnosis Other chronic nonalcoholic liver disease- Primary documented in this encounter Care Teams Patient Day Coordinator Relationship Specialty Start Date End Date Gus Booker MD [address] [place] [address] PCP - General Family Practice 03/19/15 documented as of this encounter
--- OUTSIDE RECORDS SUMMARY | 2025-03-08 00:10 | XMS_ITS | Encounter Summary ---
Author Organization [facility] Address [address] [place] [address] Care Team Providers Care Automatic Lathe Setter Name Role Phone Gus Booker MD Primary Care Provider [phone] Encounter Details Date Type Department Care Team (Latest Contact Info) Description 08/29/2006 Outpatient [facility] [id number] [facility] [address] [place] [address] James Raman MD NO ADDRESS ON FILE Other and Unspecified Noninfectious Gastroenteritis and Colitis (Primary Dx); Other Chronic Nonalcoholic Liver Disease Social History Tobacco Use Types Packs/Day Years Used Date Smoking Tobacco: Never Assessed Comments Unknown Sex and Gender Information Value Date Recorded Sex Assigned at Not on file 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
--- OUTSIDE RECORDS SUMMARY | 2025-03-08 00:10 | XMS_ITS | Encounter Summary ---
Author Organization [facility] Address [address] [place] [address] Care Team Providers Care Lunch Truck Operator Name Role Phone Gus Booker MD Primary Care Provider [phone] Reason for Referral * Outpatient Services (Routine) - Closed Specialty Diagnoses / Procedures Referred By Destiney johnson Referred To Contact Diagnoses RUQ pain RLQ abdominal pain Procedures CT ABDOMEN PELVIS W CONTRAST Rosa Jack MD NO ADDRESS ON FILE Referral ID Status Reason Start Date Expiration Date Visits Re quested Visits Authorized [id number] Closed 05/11/2011 05/10/2012 1 1 ENT CARRIER Encounter Details Date Type Department Care Team (Latest Contact Info) Description 05/11/2011 Ancillary Orders [facility] Pre-Registration [place] CALL TO MAKE APPOINTMENT ONLY [address] [place] [phone] Rosa Jack MD NO ADDRESS ON FILE RUQ pain; RLQ abdominal pain Social History Tobacco Use Types Packs/Day Years Used Date Smoking Tobacco: Never Smokeless Tobacco: Never Alcohol Use Standard Drinks/Week Comments No 0 (1 standard drink = 0.6 oz pur e alcohol) Comments No Sex and Gender Information Value Date Recorded Sex Assigned at Not on file Legal 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 Technique: Examination consists of a helical CT scan of the abdomen and pelvis performed with IV and oral contrast on a GE LightSpeed [address] scanner. A total of 100 mL of Optiray 240 contrast material was injected intravenously without complications. Comparison: 01/06/2009. Findings: Lung bases are unremarkable. Heart size appears within normal limits. The liver is unremarkable in appearance. No focal hepatic lesions or perihepatic fluid collections are identified. There is no evidence for intra or extrahepatic biliary dilatation. Patient is status post cholecystectomy with surgical clips in gallbladder fossa. The head, body and tail of the pancreas appear within normal limits. Spleen is unremarkable. Left and right adrenal glands appear within normal limits. Left and right kidneys and left and right ureters are unremarkable. Urinary bladder appears within normal limits. Patient is status post hysterectomy. Adnexal regions are unremarkable. Stomach and small intestines appear within normal limits. The appendix is not seen on this examination. Sigmoid diverticulosis is present without evidence for diverticulitis. No suspicious masses, fluid collections or lymphadenopathy is seen. No free intraperitoneal air is identified. Mild degenerative changes of the lumbar spine are present. Abdominal aorta is unremarkable. Impressions: 1. No acute abdominopelvic pathology. 2. Status post cholecystectomy and hysterectomy. 3. Sigmoid diverticulosis without evidence for diverticulitis. [email or web address] [id number] - uploaded from [employer] Scribe - Procedure Note Archie Holloway MD - 05/17/2011 Exam: CT ABDOMEN PELVIS W CONTRAST Date/Time of Exam: May 12, 2011 04:25:00 PM Reason For Exam: ABDOMINAL PAIN, RIGHT UPPER QUADRANT. Technique: Examination consists of a helical CT scan of the abdomen and pelvis performed with IV and oral contrast on a [employer] [address] scanner. A total of 100 mL of Optiray 240 contrast material was injected intravenously without complications. Comparison: 01/06/2009. Findings: Lung bases are unremarkable. Heart size appears within normal limits. The liver is unremarkable in appearance. No focal hepatic lesions or perihepatic fluid collections are identified. There is no evidence for intra or extrahepatic biliary dilatation. Patient is status post cholecystectomy with surgical clips in gallbladder fossa. The head, body and tail of the pancreas appear within normal limits. Spleen is unremarkable. Left and right adrenal glands appear within normal limits. Left and right kidneys and left and right ureters are unremarkable. Urinary bladder appears within normal limits. Patient is status post hysterectomy. Adnexal regions are unremarkable. Stomach and small intestines appear within normal limits. The appendix is not seen on this examination. Sigmoid diverticulosis is present without evidence for diverticulitis. No suspicious masses, fluid collections or lymphadenopathy is seen. No free intraperitoneal air is identified. Mild degenerative changes of the lumbar spine are present. Abdominal aorta is unremarkable. Impressions: 1. No acute abdominopelvic pathology. 2. Status post cholecystectomy and hysterectomy. 3. Sigmoid diverticulosis without evidence for diverticulitis. [id number] - uploaded from [employer] - Rosa Jack MD CT ORDERABLES Final Result documented in this encounter Visit Diagnoses Diagnosis RUQ pain Abdominal pain, right upper quadrant RLQ abdominal pain Abdominal pain, right lower quadrant RUQ pain Abdominal pain, right upper quadrant RLQ abdominal pain Abdominal pain, right lower quadrant documented in this encounter Care Teams Lunch Truck Operator Relationship Specialty Start Date End Date Gus Booker MD [address] [place] [phone] PCP - General Family Practice 03/19/15 documented as of this encounter
--- OUTSIDE RECORDS SUMMARY | 2025-03-08 00:10 | XMS_ITS | Encounter Summary ---
Author Organization [facility] Address [address] [place] [address] Care Team Providers Care Spinning Doffer Name Role Phone Gus Booker MD Primary Care Provider [phone] Encounter Details Date Type Department Care Team (Late st Contact Info) Description 12/29/2006 Outpatient Historical [facility] Specialty Nursing Services [facility] [address] [place] [phone] Macho Jones MD NO ADDRESS ON FILE Social History Tobacco Use Types Packs/Day Years Used Date Smoking Tobacco: Never Assessed Comments Unknown Sex and Gender Information Value Date Recorded Sex Assigned at Not on file 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
--- OUTSIDE RECORDS SUMMARY | 2025-03-08 00:10 | XMS_ITS | Encounter Summary ---
Author Organization [facility] Address [address] [place] [address] Care Team Providers Care Real Estate Salesperson Name Role Phone Gus Booker MD Primary Care Provider [phone] Reason for Referral * Outpatient Services (Routine) - Closed Specialty Diagnoses / Procedures Referred By Contac t Referred To Contact Diagnoses Follow-up examination of abnormal mammogram Procedures MAMMO DIAGNOSTIC UNI LEFT W OR WO CAD MAMMO DIAG UNI LEFT 3D NUPUR W OR WO CAD MAMMO DIAGNOSTIC UNI LEFT W OR WO CAD Gus Booker MD [address] [place] [address] Phone: tel: fax: [facility] Pre-Registration [place] CALL TO MAKE APPOINTMENT ONLY [address] [place] [address] Phone: tel: fax: Referral ID Status Reason Start Date Expiration Date V isits Requested Visits Authorized [id number] Closed F MC TO SCHEDULE (SGF) 05/25/2017 06/25/2018 1 1 INE BENDER Encounter Details Date Type Department Care Team (Latest Contact Info) Description 06/10/2017 Ancillary Orders [facility] CALL TO MAKE APPOINTMENT ONLY [address] [place] [address] Gus Booker MD [address] [place] [address] Follow-up examination of abnormal mammogram Social History Tobacco Use Types Packs/Day Years Used Date Smoking Tobacco: Never Smokeless Tobacco: Never Alcohol Use Standard Drinks/Week Comments No 0 (1 standard drink = 0.6 oz pur e alcohol) Comments No Sex and Gender Information Value Date Recorded Sex Assigned at Not on file 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 Gender Identity Not on file Sexual Orientation Not on file Occupation Industry Job Start Date Job End Date Not on file Not on file Not on file Not on file documented as of this encounter Plan of Treatment Not on file documented as of this encounter Results * (ABNORMAL) MAMMO DIAGNOSTIC UNI LEFT W OR WO CAD (06/10/2017 2:19 PM MACHINE BENDER) Anatomical Region Laterality Modality Breast Left Mammography 06/10/2017 2:19 PM MACHINE BENDER Narrative 06/13/2017 11:02 AM MACHINE BENDER Left Diagnostic Mammogram, 06/10/2017: The patient had a benign left stereotactic biopsy on 11/30/2016 for a nodule at the 3:00 position. This is the first six-month follow-up exam. Left craniocaudal and oblique views show average breast density. The biopsy site is stable. The nodule is much less prominent. The clip is in stable position. No suspicious findings are seen. Comparison is made with prior exams of 11/30/2016, 11/17/2016, 11/12/2016, 10/29/2015, 08/29/2014, 08/23/2013, and 07/13/2012. This mammogram was also analyzed by the Computer Aided Detection System (CAD), [employer] ImageChecker, Version 8.3. The patient was given a verbal and written report. Impression: No significant change is seen on the left status post benign stereotactic biopsy. I would recommend bilateral follow-up diagnostic mammogram in 6 months' time. [id number] us External Provider [facility] MAMMO ORDERABLES Final Res ult documented in this encounter Visit Diagnoses Diagnosis Follow-up examination of abnormal mammogram Abnormal mammogram, unspecified Follow-up examination of abnormal mammogram Abnormal mammogram, unspecified documented in this encounter Care Teams Real Estate Salesperson Relationship Specialty Start Date End Date Gus Booker MD [address] [place] [phone] PCP - General Family Practice 03/19/15 documented as of this encounter
--- OUTSIDE RECORDS SUMMARY | 2025-03-08 00:10 | XMS_ITS | Encounter Summary ---
Author Organization [facility] Address [address] [place] [address] Care Team Providers Care Doping Supervisor Name Role Phone Gus Booker MD Primary Care Provider [phone] Reason for Referral * Outpatient Services (Routine) - Closed Specialty Diagnoses / Procedures Referred By Destiney johnson Referred To Contact Diagnoses Other screening mammogram Procedures MAMMO DIGITAL SCREEN BILAT Rosa Jack MD NO ADDRESS ON FILE [facility] Pre-Registration [place] CALL TO MAKE APPOINTMENT ONLY [address] [place] [address] Phone: tel: fax: Referral ID Status Reason Start Date Expiration Date V isits Requested Visits Authorized [id number] Closed F MC TO SCHEDULE (F) 06/27/2013 07/28/2014 1 1 Encounter Details Date Type Department Care Team (Latest Contact Info) Description 06/27/2013 Ancillary Orders [facility] [place] CALL TO MAKE APPOINTMENT ONLY [address] [place] [address] Rosa Jack MD NO ADDRESS [...] on file 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 Gender Identity Not on file Sexual Orientation Not on file Occupation Industry Job Start Date Job End Date Not on file Not on file Not on file Not on file documented as of this encounter Plan of Treatment Not on file documented as of this encounter Results * MAMMO DIGITAL SCREEN BILAT (08/23/2013 12:50 PM CDT) Anatomical Region Laterality Modality Breast Bilateral Mammography Narrative 08/27/2013 6:34 AM CDT Bilateral Mammogram Reason for Exam: Screening Comparison: Compared to: 07/13/2012 MAMMO DIGITAL SCREEN BILAT, 05/13/2011 MAMMO DIGITAL SCREEN BILAT, 04/14/2010 MAMMO DIGITAL SCREEN BILAT, 02/06/2009 MAMMO DIGITAL SCREEN BILAT Findings: Bilateral CC and MLO views were obtained. This examination was reviewed with the aid of a computer-aided detection system(CAD). The breast tissue density is average. Waxing and waning masses bilaterally, consistent with benign cysts. No significant new findings since the prior mammogram(s). Procedure Note Christopher Barkley MD - 08/27/2013 Bilateral Mammogram Reason for Exam: Screening Comparison: Compared to: 07/13/2012 MAMMO DIGITAL SCREEN BILAT, 05/13/2011MAMMO DIGITAL SCREEN BILAT, 04/14/2010 MAMMO DIGITAL SCREEN BILAT,02/06/2009 MAMMO DIGITAL SCREEN BILAT Findings: Bilateral CC and MLO views were obtained. This examination was reviewed with the aid of a computer-aided detectionsystem(CAD). The breast tissue density is average. Waxing and waning masses bilaterally, consistent with benign cysts. No significant new findings since the prior mammogram(s). Rosa Jack MD MAMMO ORDERABLES Final Result documented in this encounter Visit Diagnoses Diagnosis Other screening mammogram- Primary Other screening mammogram documented in this encounter Care Teams Doping Supervisor Relationship Specialty Start Date End Date Gus Booker MD [address] [place] [phone] PCP - General Family Practice 03/19/15 documented as of this encounter
--- OUTSIDE RECORDS SUMMARY | 2025-03-08 00:10 | XMS_ITS | Encounter Summary ---
Author Organization [facility] Address [address] [place] [address] Care Team Providers Care Rn Endocrinology Name Role Phone Gus Booker MD Primary Care Provider [phone] Encounter Details Date Type Department Care Team (Latest Contact Info) Description 10/20/2006 Outpatient Historical [facility] [facility] [address] [place] [address] Macho Jones MD NO ADDRESS ON FILE Malig Julio Thyroid (Primary Dx); Unspecified Hypothyroidism Social History Tobacco Use Types Packs/Day Years Used Date Smoking Tobacco: Never Assessed Comments Unknown Sex and Gender Information Value Date Recorded Sex Assigned at Not on file 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
--- OUTSIDE RECORDS SUMMARY | 2025-03-08 00:10 | XMS_ITS | Encounter Summary ---
Author Organization [facility] Address [address] [place] [address] Care Team Providers Care Bioinformatics Engineer Name Role Phone Gus Booker MD Primary Care Provider [phone] Reason for Referral * Outpatient Services (Routine) - Closed Specialty Diagnoses / Procedures Referred By Contac t Referred To Contact Diagnoses Encounter for screening mammogram for malignant neoplasm of breast Procedures MAMMO DIGITAL SCREEN BILAT Gus Booker MD [address] [place] [address] Phone: tel: fax: [facility] Pre-Registration [place] CALL TO MAKE APPOINTMENT ONLY [address] [place] [address] Phone: tel: fax: Referral ID Status Reason Start Date Expiration Date V isits Requested Visits Authorized [id number] Closed F MC TO SCHEDULE (SGF) 08/19/2015 09/18/2016 1 1 Encounter Details Date Type Department Care Team (Latest Contact Info) Description 08/19/2015 Ancillary Orders [facility] Pre-Registration [place] CALL TO MAKE APPOINTMENT ONLY [address] [place] [address] Gus Booker MD [address] [place] [address] Encounter for screening mammogram for malignant neoplasm of breast (Primary Dx) Social History Tobacco Use Types Packs/Day Years Used Date Smoking Tobacco: Never Smokeless Tobacco: Never Alcohol Use Standard Drinks/Week Comments No 0 (1 standard drink = 0.6 oz pur e alcohol) Comments No Sex and Gender Information Value Date Recorded Sex Assigned at Not on file 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 Gender Identity Not on file Sexual Orientation Not on file Occupation Industry Job Start Date Job End Date Not on file Not on file Not on file Not on file documented as of this encounter Plan of Treatment Not on file documented as of this encounter Results * MAMMO DIGITAL SCREEN BILAT (10/29/2015 2:07 PM CDT) Anatomical Region Laterality Modality Breast Bilateral Mammography Narrative 10/30/2015 10:39 AM CDT Bilateral Mammogram Reason for Exam: Screening Comparison: Compared to: 08/29/2014 MAMMO DIGITAL SCREEN BILAT, 08/23/2013 MAMMO DIGITAL SCREEN BILAT, 07/13/2012 MAMMO DIGITAL SCREEN BILAT, 05/13/2011 MAMMO DIGITAL SCREEN BILAT, 04/14/2010 MAMMO DIGITAL SCREEN BILAT, 02/19/2009 MAMMO DIGITAL DIAG UNI LEFT, 02/06/2009 MAMMO DIGITAL SCREEN BILAT, 02/06/2008 MAMMO SCREENING BILAT Findings: Bilateral CC and MLO views were obtained. This examination was reviewed with the aid of a computer-aided detection system(CAD). The breast tissue density is average. Asymmetry appears stable.Bilateral breast nodularity is stable. No significant new findings since the prior mammogram(s). us External Provider [facility] MAMMO ORDERABLES Final Res ult documented in this encounter Visit Diagnoses Diagnosis Encounter for screening mammogram for malignant neoplasm of breast- Primary Other screening mammogram Encounter for screening mammogram for malignant neoplasm of breast Other screening mammogram documented in this encounter Care Teams Bioinformatics Engineer Relationship Specialty [place] [address] [place] [phone] PCP - General Family Practice 03/19/15 documented as of this encounter
--- OUTSIDE RECORDS SUMMARY | 2025-03-08 00:10 | XMS_ITS | Encounter Summary ---
Author Organization [facility] Address [address] [place] [address] Care Team Providers Care Stock Patcher Name Role Phone Gus Booker MD Primary Care Provider [phone] Encounter Details Date Type Department Care Team (Late st Contact Info) Description 12/24/2005 Outpatient Historical [facility] [address] [facility] [address] [place] [address] Sabi Foster MD NO ADDRESS ON FILE Other Screening Mammogram (Primary Dx) Social History Tobacco Use Types Packs/Day Years Used Date Smoking Tobacco: Never Assessed Comments Unknown Sex and Gender Information Value Date Recorded Sex Assigned at Not on file 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
--- OUTSIDE RECORDS SUMMARY | 2025-03-08 00:10 | XMS_ITS | Encounter Summary ---
Author Organization [facility] Address [address] [place] [address] Care Team Providers Care Mammography Supervisor Name Role Phone Gus Booker MD Primary Care Provider [phone] Encounter Details Date Type Department Care Team (Latest Contact Info) Description 12/30/[address] [facility] [address] [facility] [address] [place] [address] Willa Colon MD NO ADDRESS ON FILE Other Sign and Symptom in Breast (Primary Dx) Social History Tobacco Use Types Packs/Day Years Used Date Smoking Tobacco: Never Assessed Comments Unknown Sex and Gender Information Value Date Recorded Sex Assigned at Not on file Legal Sex Female 3:03 AM LEGAL EXECUTIVE Gender Identity Not on file Sexual Orientation Not on file documented as of this encounter Plan of Treatment Not on file documented as of this encounter Visit Diagnoses Diagnosis Other sign and symptom in breast- Primary documented in this encounter Care Teams Mammography Supervisor Relationship Specialty Start Date End Date Gus Booker MD [address] [place] [phone] PCP - General Family Practice 03/19/15 documented as of this encounter
--- OUTSIDE RECORDS SUMMARY | 2025-03-08 00:10 | XMS_ITS | Encounter Summary ---
Author Organization [facility] Address [address] [place] [address] Care Team Providers Care Wood Heel Flap Inserter Name Role Phone Gus Booker MD Primary Care Provider [phone] Reason for Referral * Outpatient Services (Routine) - Closed Specialty Diagnoses / Procedures Referred By Destiney johnson Referred To Contact Diagnoses Other screening mammogram Procedures MAMMO DIGITAL SCREEN BILAT Rosa Jack MD NO ADDRESS ON FILE Referral ID Status Reason Start Date Expiration Date Visits Re quested Visits Authorized [id number] Closed 02/02/2010 08/01/2010 1 1 Encounter Details Date Type Department Care Team (Late st Contact Info) Description 02/02/2010 Ancillary Orders [facility] [address] [facility] [address] [place] [phone] Rosa Jack MD NO ADDRESS ON FILE Other screening mammogram Social History Tobacco Use Types Packs/Day Years Used Date Smoking Tobacco: Never Alcohol Use Standard Drinks/Week Comments No 0 (1 standard drink = 0.6 oz pur e alcohol) Comments No Sex and Gender Information Value Date Recorded Sex Assigned at Not on file Legal 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 This examination was reviewed with the aid of a computer-aided detection system(CAD). The breast tissue density is average. Bilateral breast nodularity is stable. No significant new findings since the prior mammogram(s). Procedure Note Sabi Foster MD - 04/21/2010 Bilateral Mammogram Reason for Exam: Screening Comparison: Comparison is made with the prior exam(s) dated 12.22.04,01.10., 02.05.08, 02.06.09 Findings: Bilateral CC and MLO views were obtained. This examination was reviewed with the aid of a computer-aided detectionsystem(CAD). The breast tissue density is average. Bilateral breast nodularity isstable. No significant new findings since the prior mammogram(s). Rosa Jack MD MAMMO ORDERABLES Final Result documented in this encounter Visit Diagnoses Diagnosis Other screening mammogram Other screening mammogram documented in this encounter Care Teams Wood Heel Flap Inserter Relationship Specialty Start Date End Date Gus Booker MD [address] [place] [address] PCP - General Family Practice 03/19/15 documented as of this encounter
--- OUTSIDE RECORDS SUMMARY | 2025-03-08 00:10 | XMS_ITS | Encounter Summary ---
Author Organization [facility] Address [address] [place] [address] Care Team Providers Care Verifying Machine Operator Name Role Phone Gus Booker MD Primary Care Provider [phone] Encounter Details Date Type Department Care Team (Latest Contact Info) Description 10/13/2006 Outpatient Historical [facility]se [facility] [address] [place] [address] Sandeep Riddle MD [address] [place] [phone] Postsurgical Hypothyroidism (Primary Dx); Malig Julio Thyroid Social History Tobacco Use Types Packs/Day Years Used Date Smoking Tobacco: Never Assessed Comments Unknown Sex and Gender Information Value Date Recorded Sex Assigned at Not on file Legal Sex Female 3: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
--- OUTSIDE RECORDS SUMMARY | 2025-03-08 00:10 | XMS_ITS | Encounter Summary ---
Author Organization [facility] Address [address] [place] [address] Care Team Providers Care Public Policy Coordinator Name Role Phone Gus Booker MD Primary Care Provider [phone] Reason for Referral * Outpatient Services (Routine) - Closed Specialty Diagnoses / Procedures Referred By Contac t Referred To Contact Radiology Diagnoses Abnormal mammogram Procedures MAMMO DIAGNOSTIC BILATERAL W OR WO CAD Gus Booker MD [address] [place] [address] Phone: tel: fax: [facility] [address] [facility] [address] [place] [address] Phone: tel: fax: Referral ID Status Reason Start Date Expiration Date V isits Requested Visits Authorized [id number] Closed SGF MC TO SCHEDULE (SGF) 10/26/2017 11/26/2018 1 1 Encounter Details Date Type Department Care Team (Late st Contact Info) Description 10/26/2017 Ancillary Orders [facility] Pre-Registration [place] CALL TO MAKE APPOINTMENT ONLY [address] [place] [address] Gus Booker MD [address] [place] [address] Abnormal mammogram Social History Tobacco Use Types Packs/Day Years Used Date Smoking Tobacco: Never Smokeless Tobacco: Never Alcohol Use Standard Drinks/Week Comments No 0 (1 standard drink = 0.6 oz pur e alcohol) Comments No Sex and Gender Information Value Date Recorded Sex Assigned at Not on file 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 I now recommend returning her to routine screening mammogram in one year. Patient received a result/recommendation letter. [id number] Narrative 01/03/2018 3:48 PM CDT Bilateral Digital Diagnostic Mammogram: Repeat examination on this 62-year-old female is compared with multiple previous, most recent being left 06/10/2017, and with bilateral 11/12/2016, 10/29/2015, and 08/29/2014. There are multiple others dating back to 2004. This is second 6 month follow-up on the left after benign stereotactic core biopsy, and is an annual mammogram on the right. Breast tissue is again of average density and asymmetrical. No significant change on the right is seen, with some stable benign appearing tiny nodules again noted, stable. No significant change on the left is seen, with the marker again noted in the area of the benign stereotactic biopsy with no significant change identified. This digital mammogram was also analyzed by the Computer Aided Detection System (CAD), [employer] ImageChecker, Version 8.3. us External Provider [facility] MAMMO ORDERABLES Final Res ult documented in this encounter Visit Diagnoses Diagnosis Abnormal mammogram Abnormal mammogram, unspecified Abnormal mammogram Abnormal mammogram, unspecified documented in this encounter Care Teams Public Policy Coordinator Relationship Specialty Start Date End Date Gus Booker MD [address] [place] [phone] PCP - General Family Practice 03/19/15 documented as of this encounter
--- OUTSIDE RECORDS SUMMARY | 2025-03-08 00:10 | XMS_ITS | Encounter Summary ---
Author Organization [facility] Address [address] [place] [address] Care Team Providers Care Sales Floor Associate Name Role Phone Gus Booker MD Primary Care Provider [phone] Encounter Details Date Type Department Care Team (Latest Contact Info) Description 02/11/[address] [facility] [address] [facility] [address] [place] [address] Rosa Jack MD NO ADDRESS ON FILE Other (Abnormal) Findings on Radiological Examination of Breast Social History Tobacco Use Types Packs/Day Years Used Date Smoking Tobacco: Never Assessed Comments No Sex and Gender Information Value Date Recorded Sex Assigned at Not on file Legal Sex Female 3:03 AM GRAVITY MANAGER Gender Identity Not on file Sexual Orientation Not on file documented as of this encounter Plan of Treatment Not on file documented as of this encounter Results * MAMMO DIGITAL DIAG UNI LEFT (02/19/2009 1:38 PM GRAVITY MANAGER) Anatomical Region Laterality Modality Breast Left Mammography Narrative 02/19/2009 3:57 PM GRAVITY MANAGER LEFT DIGITAL ADDITIONAL VIEWS AND RIGHT BREAST ULTRASOUND: 02/19/09 The patient had a screening exam on 02/06/09, and on the right, there was noted to be a new nodule, inferomedially, and ultrasound was recommended. On the left craniocaudal view, centrally, there was thought to be a possible developing nodule, deep at the nipple line, and additional views were recommended. Left true lateral view was obtained and also a left MLO spot compression view was obtained. A left craniocaudal magnification view was obtained as well. The additional views on the left show no persistent or suspicious findings. There is no evidence of mass or distortion. The density seen on the screening exam was due to overlapping tissue. There is no change compared with the prior exams of 02/06/08, 01/10/07, and 12/22/04. This digital mammogram was also analyzed by the Computer Aided Detection System (CAD), [employer], Version 8.3. RIGHT BREAST ULTRASOUND: The nodule identified on the screening mammogram appeared to be well defined and very low density, measuring about 9 mm, and it was felt to be between the 3 and 6 o'clock position. Right breast ultrasound shows an oval, anechoic, circumscribed, simple cyst with good through transmission, at the 5 o'clock position, 4 cm from the nipple, measuring approximately 7 x 3 mm, which appears to correspond well to the mammographic finding. No suspicious findings are seen sonographically. During the ultrasound exam, the patient indicated to the chief technologist that she had severe bilateral breast pain. I do not know when was the last time the patient had a clinical breast examination and so she was told to make an appointment with Dr. Jack for clinical exam and evaluation of the breast pain. The patient received a result/recommendation letter. CONCLUSION: I would recommend the patient make an appointment with Dr. Jack for clinical correlation due to the severe bilateral breast pain. Unless otherwise clinically indicated, I would recommend a follow-up screening mammogram in one year. Procedure Note Willa Colon MD - 02/21/2009 LEFT DIGITAL ADDITIONAL VIEWS AND RIGHT BREAST ULTRASOUND: 02/19/09 The patient had a screening exam on 02/06/09, and on the right, there wasnoted to be a new nodule, inferomedially, and ultrasound was recommended.On the left craniocaudal view, centrally, there was thought to be apossible developing nodule, deep at the nipple line, and additional viewswere recommended. Left true lateral view was obtained and also a left MLO spot compressionview was obtained. A left craniocaudal magnification view was obtained aswell. The additional views on the left show no persistent or suspiciousfindings. There is no evidence of mass or distortion. The density seenon the screening exam was due to overlapping tissue. There is no changecompared with the prior exams of 02/06/08, 01/10/07, and 12/22/04. This digital mammogram was also analyzed by the Computer Aided DetectionSystem (CAD), [employer], Version 8.3. RIGHT BREAST ULTRASOUND: The nodule identified on the screening mammogramappeared to be well defined and very low density, measuring about 9 mm,and it was felt to be between the 3 and 6 o'clock position. Right breastultrasound shows an oval, anechoic, circumscribed, simple cyst with goodthrough transmission, at the 5 o'clock position, 4 cm from the nipple,measuring approximately 7 x 3 mm, which appears to correspond well to themammographic finding. No suspicious findings are seen sonographically. During the ultrasound exam, the patient indicated to the ultrasoundtechnologist that she had severe bilateral breast pain. I do not knowwhen was the last time the patient had a clinical breast examination andso she was told to make an appointment with Dr. Jack for clinical examand evaluation of the breast pain. The patient received a result/recommendation letter. CONCLUSION: I would recommend the patient make an appointment with for clinical correlation due to the severe bilateral breast pain.Unless otherwise clinically indicated, I would recommend a follow-upscreening mammogram in one year. us Rosa Jack MD MAMMO ORDERABLES Final Result documented in this encounter Visit Diagnoses Diagnosis Other (abnormal) findings on radiological examination of breast Other (abnormal) findings on radiological examination of breast documented in this encounter Care Teams Sales Floor Associate Relationship Specialty Start Date End Date Gus Booker MD [address] [place] [address] PCP - General Family Practice 03/19/15 documented as of this encounter
--- OUTSIDE RECORDS SUMMARY | 2025-03-08 00:10 | XMS_ITS | Encounter Summary ---
Author Organization [facility] Address [address] [place] [address] Care Team Providers Care Drag Out Man Name Role Phone Gus Booker MD Primary Care Provider [phone] Encounter Details Date Type Department Care Team (Latest Contact Info) Description 05/25/2017 Ancillary Orders [facility] Pre-Registration [place] CALL TO MAKE APPOINTMENT ONLY [address] [place] [address] Gus Booker MD [address] [facility] [place] [address] Follow-up examination of abnormal mammogram Social History Tobacco Use Types Packs/Day Years Used Date Smoking Tobacco: Never Smokeless Tobacco: Never Alcohol Use Standard Drinks/Week Comments No 0 (1 standard drink = 0.6 oz pur e alcohol) Comments No Sex and Gender Information Value Date Recorded Sex Assigned at Not on file 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
--- OUTSIDE RECORDS SUMMARY | 2025-03-08 00:10 | XMS_ITS | Encounter Summary ---
Author Organization [facility] Address [address] [place] [address] Care Team Providers Care Desk Manager Name Role Phone Gus Booker MD Primary Care Provider [phone] Encounter Details Date Type Department Care Team (Latest Contact Info) Description 12/24/2005 Outpatient [facility] [address] [place] [address] Rosa Jack MD NO ADDRESS ON FILE Other Screening Mammogram (Primary Dx) Social History Tobacco Use Types Packs/Day Years Used Date Smoking Tobacco: Never Assessed Comments Unknown Sex and Gender Information Value Date Recorded Sex Assigned at Not on file 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
--- OUTSIDE RECORDS SUMMARY | 2025-03-08 00:10 | XMS_ITS | Encounter Summary ---
Author Organization [facility] Address [address] [place] [address] Care Team Providers Care Supply Crib Attendant Name Role Phone Gus Booker MD Primary Care Provider [phone] Encounter Details Date Type Department Care Team (Late st Contact Info) Description 08/31/2018 Ancillary Orders [facility] [address] [place] [address] Joby Burnett MD [address] [place] [phone] Right hip pain Social History Tobacco Use Types Packs/Day Years Used Date Smoking Tobacco: Never Smokeless Tobacco: Never Alcohol Use Standard Drinks/Week Comments No 0 (1 standard drink = 0.6 oz pur e alcohol) Comments No Sex and Gender Information Value Date Recorded Sex Assigned at Not on file Legal Sex Female 3: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 No acute fracture or dislocation seen. Joint space is well maintained. us Joby Burnett MD DIAGNOSTIC IMAGING ORDERABLES Final Result documented in this encounter Visit Diagnoses Diagnosis Right hip pain Pain in joint, pelvic region and thigh Right hip pain Pain in joint, pelvic region and thigh documented in this encounter Care Teams Supply Crib Attendant Relationship Specialty Start Date End Date Gus Booker MD [address] [place] [address] PCP - General Family Practice 03/19/15 documented as of this encounter
--- OUTSIDE RECORDS SUMMARY | 2025-03-08 00:10 | XMS_ITS | Encounter Summary ---
Author Organization [facility] Address [address] [place] [address] Care Team Providers Care Inspectors And Regulatory Officers Name Role Phone Gus Booker MD Primary Care Provider [phone] Encounter Details Date Type Department Care Team (Latest Contact Info) Description 12/30/2005 Outpatient [facility] Rosa Jack MD NO ADDRESS ON FILE Abnormal Mammogram, Unspecified (Primary Dx) Social History Tobacco Use Types Packs/Day Years Used Date Smoking Tobacco: Never Assessed Comments Unknown Sex and Gender Information Value Date Recorded Sex Assigned at Not on file Legal Sex Female 3: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
--- OUTSIDE RECORDS SUMMARY | 2025-03-08 00:10 | XMS_ITS | Encounter Summary ---
Author Organization [facility] Address [address] [place] [address] Care Team Providers Care Television Cabinet Finisher Name Role Phone Gus Booker MD Primary Care Provider [phone] Reason for Referral * Outpatient Services (Routine) - Closed Specialty Diagnoses / Procedures Referred By Contac t Referred To Contact Diagnoses Abnormal EKG Procedures NM PHARMACOLOGICAL STRESS TEST Gus Booker MD [address] [place] [address] Phone: tel: fax: [facility] Pre-Registration [place] CALL TO MAKE APPOINTMENT ONLY [address] [place] [address] Phone: tel: fax: Referral ID Status Reason Start Date Expiration Date V isits Requested Visits Authorized [id number] Closed F [facility] TO SCHEDULE (SGF) 04/03/2015 05/03/2016 1 1 LE TURNER Encounter Details Date Type Department Care Team (Latest Contact Info) Description 04/03/2015 Ancillary Orders [facility] Pre-Registration [place] CALL TO MAKE APPOINTMENT ONLY [address] [place] [address] Gus Booker MD [address] [place] [address] Abnormal EKG (Primary Dx) Social History Tobacco Use Types Packs/Day Years Used Date Smoking Tobacco: Never Smokeless Tobacco: Never Alcohol Use Standard Drinks/Week Comments No 0 (1 standard drink = 0.6 oz pur e alcohol) Comments No Sex and Gender Information Value Date Recorded Sex Assigned at Not on file Legal Sex Female 3:03 AM HANDLE TURNER Gender Identity Not on file Sexual Orientation Not on file Occupation Industry Job Start Date Job End Date Not on file Not on file Not on file Not on file documented as of this encounter Plan of Treatment Not on file documented as of this encounter Results * NM PHARMACOLOGICAL STRESS TEST (04/15/2015 10:00 AM HANDLE TURNER) 04/15/2015 8:08 AM HANDLE TURNER Narrative INTERFACE SYSTEM - 04/15/2015 10:32 AM HANDLE TURNER Rest/Stress Single Isotope SPECT Myocardial Perfusion Imaging [...] available for direct comparison. Dr. Sonia MD, [facility] This laboratory has been accredited by the [...] available for direct comparison. Dr. Sonia MD, [facility] This laboratory has been accredited by the Intersocietal Commission for the Accreditation of Nuclear Medicine Laboratories (ICANL). External Provider [facility] [place] [facility] ORDERABLES Final Resu lt INTERFACE SYSTEM Refer to clinic/hospital department documented in this encounter Visit Diagnoses Diagnosis Abnormal EKG- Primary Nonspecific abnormal electrocardiogram (ECG) (EKG) Abnormal EKG Nonspecific abnormal electrocardiogram (ECG) (EKG) documented in this encounter Care Teams Television Cabinet Finisher Relationship Specialty Start Date End Date Gus Booker MD [address] [place] [phone] PCP - General Family Practice 03/19/15 documented as of this encounter
--- OUTSIDE RECORDS SUMMARY | 2025-03-08 00:10 | XMS_ITS | Encounter Summary ---
Author Organization [facility] Address [address] [place] [address] Care Team Providers Care Ice Sculptor Name Role Phone Gus Booker MD Primary Care Provider [phone] Encounter Details Date Type Department Care Team (Latest Contact Info) Description 08/29/2006 Outpatient Historical [facility] 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); Disturbance of Salivary Secretion Social History Tobacco Use Types Packs/Day Years Used Date Smoking Tobacco: Never Assessed Comments Unknown Sex and Gender Information Value Date Recorded Sex Assigned at Not on file Legal Sex Female 3:03 AM DESIGN ENGINEERING INTERN Gender Identity Not on file Sexual Orientation Not on file documented as of this encounter Plan of Treatment Not on file documented as of this encounter Visit Diagnoses Diagnosis Unspecified disease of the salivary glands- Primary Disturbance of salivary secretion documented in this encounter Care Teams Ice Sculptor Relationship Specialty Start Date End Date Gus Booker MD [address] [place] [phone] PCP - General Family Practice 03/19/15 documented as of this encounter
--- OUTSIDE RECORDS SUMMARY | 2025-03-08 00:10 | XMS_ITS | Encounter Summary ---
Author Organization [facility] Address [address] [place] [address] Care Team Providers Care Water Purifier Operator Name Role Phone Gus Booker MD Primary Care Provider [phone] Encounter Details Date Type Department Care Team (Latest Contact Info) Description 01/12/2006 Outpatient Historical [facility] Gen Spec Surg [address] [place] [address] Joby Slater MD NO ADDRESS ON FILE Malig Julio Thyroid (Primary Dx); Malig Julio Lymph-Intrathoracic (CMS/HCC) Social History Tobacco Use Types Packs/Day Years Used Date Smoking Tobacco: Never Assessed Comments Unknown Sex and Gender Information Value Date Recorded Sex Assigned at Not on file Legal Sex Female 3:03 AM REMELT SUGAR BOILER Gender Identity Not on file Sexual Orientation Not on file documented as of this encounter Plan of Treatment Not on file documented as of this encounter Visit Diagnoses Diagnosis Malig julio thyroid- Primary Malignant neoplasm of thyroid gland 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
--- OUTSIDE RECORDS SUMMARY | 2025-03-08 00:10 | XMS_ITS | Encounter Summary ---
Author Organization [facility] Address [address] [place] [address] Care Team Providers Care Door To Door Salesperson Name Role Phone Gus Booker MD Primary Care Provider Encounter Details Date Type Department Care Team (Late st Contact Info) Description 05/13/2006 Outpatient Historical [facility] [address] [place] [address] Macho Jones MD NO ADDRESS ON FILE Social History Tobacco Use Types Packs/Day Years Used Date Smoking Tobacco: Never Assessed Comments Unknown Sex and Gender Information Value Date Recorded Sex Assigned at Not on file Legal Sex Female 3:03 AM BUSINESS SERVICES SPECIALIST SALES Gender Identity Not on file Sexual Orientation Not on file documented as of this encounter Plan of Treatment Not on file documented as of this encounter Procedures Procedure Name Priority Date/Time Associated Diagnosis Comments US HEAD NECK TISSUES Routine 05/13/2006 1:46 PM BUSINESS SERVICES SPECIALIST SALES documented in this encounter Results * US NECK TISSUES (05/13/2006 1:46 PM BUSINESS SERVICES SPECIALIST SALES) Anatomical Region Laterality Modality Head Other 05/13/2006 1:46 PM BUSINESS SERVICES SPECIALIST SALES Narrative 05/13/2006 1:46 PM BUSINESS SERVICES SPECIALIST SALES NECK ULTRASOUND - 05/16/2006: COMPARISONS: 07/20/2005 CLINICAL HISTORY: Thyroidectomy. Hypothyroidism. FINDINGS: Patient is status post thyroidectomy. There is a 5.5 x 3.8 x 3.1 millimeter structure in the upper right neck, likely a lymph node. There are three nodules in the left thyroid bed, possibly consistent with residual tissue / lymph nodes. In the region of the upper thyroid bed there is a 7.2 x 4.2 x 6.5 millimeter nodule. In the mid thyroid bed there is a 3.0 x 3.2 x 4.9 millimeter nodule. In the lower pole of the left thyroid residual bed there is a 11.2 x 8.1 x 6.6 millimeter nodule. Correlation with nuclear medicine scan recommended. Multiple bilateral lymph nodes are identified, the largest on the right measuring 9.5 x 4.8 x 9.7 millimeters and the largest on the left measuring 9.1 x 5.2 x 4.3 millimeters. IMPRESSION: 1. Probable residual tissue in the left thyroid bed as described. 2. Multiple lymph nodes as described. ekp / Dictated By: Archie Holloway M.D., Ph.D. Electronically Signed By: Archie Holloway M.D., Ph.D. Date Signed: 05/17/06 Procedure Note 03/07/2009 NECK ULTRASOUND - 05/16/2006: COMPARISONS: 07/20/2005 CLINICAL HISTORY: Thyroidectomy. Hypothyroidism. FINDINGS: Patient is status post thyroidectomy. There is a 5.5 x 3.8 x 3.1millimeter structure in the upper right neck, likely a lymph node. There are three nodules in the left thyroidbed, possibly consistent with residual tissue / lymph nodes. In the region of the upper thyroid bedthere is a 7.2 x 4.2 x 6.5 millimeter nodule. In the mid thyroid bed there is a 3.0 x 3.2 x 4.9millimeter nodule. In the lower pole of the left thyroid residual bed there is a 11.2 x 8.1 x 6.6millimeter nodule. Correlation with nuclear medicine scan recommended. Multiple bilateral lymph nodes areidentified, the largest on the right measuring 9.5 x 4.8 x 9.7 millimeters and the largest on the leftmeasuring 9.1 x 5.2 x 4.3 millimeters. IMPRESSION: 1. Probable residual tissue in the left thyroid bed as described. 2. Multiple lymph nodes as described. ekp / Dictated By: Archie Holloway M.D., Ph.D. Electronically Signed By: Archie Holloway M.D., Ph.D. Date Signed: 05/17/06 us Macho Jones MD ORDERABLES Final Result documented in this encounter Visit Diagnoses Not on filedocumented in this encounter Care Teams Door To Door Salesperson Relationship Specialty [place] [address] [place] [phone] PCP - General Family Practice 03/19/15 documented as of this encounter
--- OUTSIDE RECORDS SUMMARY | 2025-03-08 00:10 | XMS_ITS | Encounter Summary ---
Author Organization [facility] Address [address] [place] [address] Care Team Providers Care Reproduction Order Processor Name Role Phone Gus Booker MD Primary Care Provider [phone] Encounter Details Date Type Department Care Team (Late st Contact Info) Description 05/16/2017 Ancillary Orders [facility] Pre-Registration [place] CALL TO MAKE APPOINTMENT ONLY [address] [place] [phone] Gus Booker MD [address] [place] [address] Social History Tobacco Use Types Packs/Day Years Used Date Smoking Tobacco: Never Smokeless Tobacco: Never Alcohol Use Standard Drinks/Week Comments No 0 (1 standard drink = 0.6 oz pur e alcohol) Comments No Sex and Gender Information Value Date Recorded Sex Assigned at Not on file Legal Sex Female 3:03 AM MEDICAL RECEPTIONIST BILLER Gender Identity Not on file Sexual Orientation Not on file Occupation Industry Job Start Date Job End Date Not on file Not on file Not on file Not on file documented as of this encounter Plan of Treatment Not on file documented as of this encounter Visit Diagnoses Not on filedocumented in this encounter Care Teams Reproduction Order Processor Relationship Specialty Start Date End Date Gus Booker MD [address] [place] [address] PCP - General Family Practice 03/19/15 documented as of this encounter
--- OUTSIDE RECORDS SUMMARY | 2025-03-08 00:10 | XMS_ITS | Encounter Summary ---
Author Organization [facility] Address [address] [place] [address] Care Team Providers Care Executive Kitchen Manager Name Role Phone Gus Booker MD Primary Care Provider [phone] Encounter Details Date Type Department Care Team (Late st Contact Info) Description 10/04/2005 Inpatient Historical HIS IN BED Macho Jones MD NO ADDRESS ON FILE Malignant Neoplasm of Thyroid Gland (CMS/HCC) (Primary Dx) Social History Tobacco Use Types Packs/Day Years Used Date Smoking Tobacco: Never Assessed Comments Unknown Sex and Gender Information Value Date Recorded Sex Assigned at Not on file Legal Sex Female 3:03 AM BALL SHAGGER Gender Identity Not on file Sexual Orientation Not on file documented as of this encounter Plan of Treatment Not on file documented as of this encounter Procedures Procedure Name Priority Date/Time Associated Diagnosis Comments NM RADIOPHARM THERAPY ORAL ADMIN Routine 10/04/2005 7:07 AM CDT documented in this encounter Results * NM RADIOPHARM THERAPY ORAL ADMIN (10/04/2005 7:07 AM CDT) 10/04/2005 7:07 AM CDT Addenda This result is currently undergoing an addendum. Addendum by Provider, Historical on 03/07/2009 6:28 PM BALL SHAGGER The patient returned at approximately nine days following radioiodine ablative therapy for whole-body imaging in anterior and posterior projections with additional high-resolution planar imaging over the anterior head, neck, and chest regions. There is accumulation of tracer in the thyroid bed and liver. No other areas of radioiodine accumulation are identified. IMPRESSION: Accumulation of tracer in the thyroid bed consistent with residual thyroid tissue. Tracer distribution throughout the liver reflects functioning thyroid tissue at the time of treatment. There is no evidence of distant disease. These findings were verbally conveyed to the attending physician. festus Dictated By: Ajith Ji M.D. Electronically Signed By: Ajith Ji M.D. Date Signed: 10/13/05 [facility] Narrative INTERFACE SYSTEM - 10/04/2005 7:07 AM CDT 10/04/2005 Radiopharmaceutical: I-131 (iodine-131) sodium iodide Dose: 155 mCi Reason for Consultation: Therapy of thyroid carcinoma. THERAPY NOTE: Ms. Jazmine Posadas is a 50-year-old female who is referred for evaluation and treatment of thyroid carcinoma by means of radioiodine. She underwent a near-total thyroidectomy on 08/19/2005. 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 There were three lymph nodes that demonstrated metastatic disease. Her TSH on 09/30/2005 was 79 uIU/mL. The procedure and complications were fully explained to the patient. With relative good understanding, she signed the appropriate consent form. Following an overnight fast, the patient was administered 155 mCi of I-131 (iodine-131) sodium iodide orally without difficulty. She was instructed not to eat or drink anything for two hours following administration of this dose. She was then instructed to eat a normal diet without seafood for three days. She was asked to drink an extra amount of fluid with frequent emptying of her bladder over the next 48 hours. She was also instructed to suck on lemon wedges to decrease the incidence of salivary gland inflammation and swelling. It is anticipated that the patient will be ready for discharge within 24 to 48 hours. Follow-up will be with Dr. Jimi Jones. festus Dictated By: Hai Kauffman M.D. Electronically Signed By: Hai Kauffman M.D. Date Signed: 10/04/05 [facility] Procedure Note 03/06/2009 10/04/2005 Radiopharmaceutical: I-131 (iodine-131) sodium iodide Dose: 155 mCi Reason for Consultation: Therapy of thyroid carcinoma. THERAPY NOTE: Ms. Jazmine Posadas is a 50-year-old female who is referred for evaluation andtreatment of thyroid carcinoma by means of radioiodine. She underwent a near-total thyroidectomy on08/19/2005. The pathology demonstrated a papillary carcinoma that was 2 cm in maximum diameter involving theright lobe. There were three lymph nodes that demonstrated metastatic disease. Her TSH on 09/30/2005 was 79uIU/mL. The procedure and complications were fully explained to the patient. Withrelative good understanding, she signed the appropriate consent form. Following an overnight fast, the patient was administered 155 mCi of I-131(iodine-131) sodium iodide orally without difficulty. She was instructed not to eat or drinkanything for two hours following administration of this dose. She was then instructed to eat a normal dietwithout seafood for three days. She was asked to drink an extra amount of fluid with frequentemptying of her bladder over the next 48 hours. She was also instructed to suck on lemon wedges todecrease the incidence of salivary gland inflammation and swelling. It is anticipated that the patient willbe ready for discharge within 24 to 48 hours. Follow-up will be with Dr. Jimi Jones. festus Dictated By: Hai Kauffman M.D. Electronically Signed By: Hai Kauffman M.D. Date Signed: 10/04/05 [facility] us Macho Jones MD [place] ORDERABLES Edited INTERFACE SYSTEM Refer to clinic/hospital department documented in this encounter Visit Diagnoses Diagnosis Malignant neoplasm of thyroid gland (CMS/HCC)- Primary Malignant neoplasm of thyroid gland documented in this encounter Care Teams Executive Kitchen Manager Relationship Specialty Start Date End Date Gus Booker MD [address] [place] [phone] PCP - General Family Practice 03/19/15 documented as of this encounter
--- OUTSIDE RECORDS SUMMARY | 2025-03-08 00:10 | XMS_ITS | Encounter Summary ---
Author Organization [facility] Address [address] [place] [address] Care Team Providers Care Hardwood Sawyer Name Role Phone Gus Booker MD Primary Care Provider [phone] Encounter Details Date Type Department Care Team (Latest Contact Info) Description 11/30/2006 [facility] [address] [place] [address] Macho Jones MD NO ADDRESS ON FILE Malignant Neoplasm of Thyroid Gland (CMS/HCC) (Primary Dx) Social History Tobacco Use Types Packs/Day Years Used Date Smoking Tobacco: Never Assessed Comments Unknown Sex and Gender Information Value Date Recorded Sex Assigned at Not on file Legal Sex Female 3:03 AM SCREEN CUTTER AND TRIMMER Gender Identity Not on file Sexual Orientation Not on file documented as of this encounter Plan of Treatment Not on file documented as of this encounter Procedures Procedure Name Priority Date/Time Associated Diagnosis Comments NM THYROID CA METS WB POST THER Routine 11/30/2006 12:01 AM CDT documented in this encounter Results * NM THYROID CA METS WB POST THER (11/30/2006 12:01 AM CDT) Anatomical Region Laterality Modality Neck Other 11/30/2006 12:0 1 AM CDT Narrative 11/30/2006 12:01 AM CDT I-123 Sodium Iodide Whole Body Metastatic Survey: Radiopharmaceutical: I-123 sodium iodide Dose: 1.92 mCiReason for Consultation: Papillary carcinoma of the thyroid. Status post ablation 10/04/2005. Evaluation for disease recurrence. Total body images were obtained in the anterior and posterior projections at 24 hours post traceradministration. Evaluation of the head and neck region demonstrates physiologic tracer distribution. Tracer activityappears unremarkable throughout the thorax. The liver and spleen appear unremarkable. Traceractivity also appears unremarkable throughout the abdomen and pelvis. Tracer activity also appearsunremarkable throughout the remainder of the imaged soft tissues of the body and imaged bonyskeleton. Impression: I do not see evidence on this examination for the presence of functioning normal thyroid tissue orfunctioning metastatic disease. The previous examination of 10/04/2005 demonstrated functioningthyroid tissue in the thyroid bed region. This is not evident on today's study. - Dictated By: Hai Kauffman M.D. Electronically Signed By: Hai Kauffman M.D. Date Signed: 12/01/06 Procedure Note 03/09/2009 I-123 Sodium Iodide Whole Body Metastatic Survey: Radiopharmaceutical: I-123 sodium iodide Dose: 1.92 mCiReason for Consultation: Papillary carcinoma of the thyroid. Status post ablation 10/04/2005. Evaluation for disease recurrence. Total body images were obtained in the anterior and posterior projectionsat 24 hours post traceradministration. Evaluation of the head and neck region demonstrates physiologic tracerdistribution. Tracer activityappears unremarkable throughout the thorax. The liver and spleenappear unremarkable. Traceractivity also appears unremarkable throughout the abdomen andpelvis. Tracer activity also appearsunremarkable throughout the remainder of the imaged soft tissues ofthe body and imaged bonyskeleton. Impression: I do not see evidence on this examination for the presence of functioningnormal thyroid tissue orfunctioning metastatic disease. The previous examination of 10/04/2005demonstrated functioningthyroid tissue in the thyroid bed region. This is not evident on today's study. - Dictated By: Hai Kauffman M.D. Electronically Signed By: Hai Kauffman M.D. Date Signed: 12/01/06 Macho oJnes MD [place] ORDERABLES Final Result documented in this encounter Visit Diagnoses Diagnosis Malignant neoplasm of thyroid gland (CMS/HCC)- Primary Malignant neoplasm of thyroid gland documented in this encounter Care Teams Hardwood Sawyer Relationship Specialty Start Date End Date Gus Booker MD [address] [place] [phone] PCP - General Family Practice 03/19/15 documented as of this encounter
--- OUTSIDE RECORDS SUMMARY | 2025-03-08 00:10 | XMS_ITS | Encounter Summary ---
Author Organization [facility] Address [address] [place] [address] Care Team Providers Care Human Resources Benefits Administrator Name Role Phone Gus Booker MD Primary Care Provider [phone] Encounter Details Date Type Department Care Team (Late st Contact Info) Description 02/06/2009 Ancillary Orders [facility] [address] [facility] [address] [place] [address] Rosa Jack MD NO ADDRESS ON FILE Other Screening Mammogram Social History Tobacco Use Types Packs/Day Years Used Date Smoking Tobacco: Never Assessed Comments No Sex and Gender Information Value Date Recorded Sex Assigned at Not on file Legal Sex Female 3:03 AM SALES FLOOR MANAGER Gender Identity Not on file Sexual Orientation Not on file documented as of this encounter Plan of Treatment Not on file documented as of this encounter Results * MAMMO DIGITAL SCREEN BILAT (02/06/2009 1:37 PM CDT) Anatomical Region Laterality Modality Breast Bilateral Mammography Impressions 02/07/2009 8:25 AM CDT : The patient needs to return for a few additional views on the left and ultrasound on the right. Narrative 02/07/2009 8:25 AM CDT DIGITAL BILATERAL SCREENING MAMMOGRAM: Bilateral CC and MLO views were obtained. Comparison was made with multiple prior exams dating back to 12.22.04. On the right, inferior and medial, there has been a subtle interval change with a fairly well-defined low-density nodule increasing in size. Sonographic evaluation is recommended. On the left CC view, centrally, there may be a developing nodule which appears to have indistinct margins. I would recommend a spot magnification view in the CC projection be obtained as well as a spot compression view in the MLO projection and a true lateral projection on the left for further evaluation. This mammogram was also analyzed by the Computer Aided Detection system (CAD), R2 ImageChecker, Version 8.3. Procedure Note Sabi Foster MD - 02/10/2009 DIGITAL BILATERAL SCREENING MAMMOGRAM: Bilateral CC and MLO views wereobtained. Comparison was made with multiple prior exams dating back to12.22.04. On the right, inferior and medial, there has been a subtle interval changewith a fairly well-defined low-density nodule increasing in size.Sonographic evaluation is recommended. On the left CC view, centrally, there may be a developing nodule whichappears to have indistinct margins. I would recommend a spotmagnification view in the CC projection be obtained as well as a spotcompression view in the MLO projection and a true lateral projection onthe left for further evaluation. This mammogram was also analyzed by the Computer Aided Detection system(CAD), R2 ImageChecker, Version 8.3. IMPRESSION: The patient needs to return for a few additional views on theleft and ultrasound on the right. us Rosa Jack MD MAMMO ORDERABLES Final Result documented in this encounter Visit Diagnoses Diagnosis Other screening mammogram Other screening mammogram documented in this encounter Care Teams Human Resources Benefits Administrator Relationship Specialty Start Date End Date Gus Booker MD [address] [place] [phone] PCP - General Family Practice 03/19/15 documented as of this encounter
--- OUTSIDE RECORDS SUMMARY | 2025-03-08 00:10 | XMS_ITS | Encounter Summary ---
Author Organization [facility] Address [address] [place] [address] Care Team Providers Care Ice Delivery Driver Name Role Phone Gus Booker MD Primary Care Provider [phone] Reason for Referral * Outpatient Services (Routine) - Closed Specialty Diagnoses / Procedures Referred By Destiney johnson Referred To Contact Diagnoses Other screening mammogram Procedures MAMMO DIGITAL SCREEN BILAT Rosa Jack MD NO ADDRESS ON FILE Referral ID Status Reason Start Date Expiration Date Visits Re quested Visits Authorized [id number] Closed 04/21/2011 04/20/2012 1 1 EAR POWERPLANT MECHANIC Encounter Details Date Type Department Care Team (Latest Contact Info) Description 04/21/2011 Ancillary Orders [facility] Pre-Registration Adel CALL TO MAKE APPOINTMENT ONLY [address] [place] [phone] Rosa Jack MD NO ADDRESS ON FILE Other screening mammogram Social History Tobacco Use Types Packs/Day Years Used Date Smoking Tobacco: Never Smokeless Tobacco: Never Alcohol Use Standard Drinks/Week Comments No 0 (1 standard drink = 0.6 oz pur e alcohol) Comments No Sex and Gender Information Value Date Recorded Sex Assigned at Not on file Legal Sex Female 3:03 AM NUCLEAR POWERPLANT MECHANIC Gender Identity Not on file Sexual Orientation Not on file documented as of this encounter Plan of Treatment Not on file documented as of this encounter Results * MAMMO DIGITAL SCREEN BILAT (05/13/2011 9:39 AM NUCLEAR POWERPLANT MECHANIC) Anatomical Region Laterality Modality Breast Bilateral Mammography Narrative 05/14/2011 3:57 PM NUCLEAR POWERPLANT MECHANIC Bilateral Mammogram Reason for Exam: Screening Comparison: Comparison is made with the prior exam(s) dated 04.14.10+.22.09+10.21.08+.. Findings: Bilateral CC and MLO views were obtained. This examination was reviewed with the aid of a computer-aided detection system(CAD). The breast tissue density is fatty. No significant new findings since the prior mammogram(s). Procedure Note Chano Lloyd MD - 05/14/2011 Bilateral Mammogram Reason for Exam: Screening Comparison: Comparison is made with the prior exam(s) dated106.15.09+.22.09+10..08+01.10. Findings: Bilateral CC and MLO views were obtained. This examination was reviewed with the aid of a computer-aided detectionsystem(CAD). The breast tissue density is fatty. No significant new findings since the prior mammogram(s). Rosa Jack MD MAMMO ORDERABLES Final Result documented in this encounter Visit Diagnoses Diagnosis Other screening mammogram Other screening mammogram documented in this encounter Care Teams Ice Delivery Driver Relationship Specialty Start Date End Date Gus Booker MD [address] [place] [phone] PCP - General Family Practice 03/19/15 documented as of this encounter
--- NOTE | 2025-03-08 00:12 | CTR_ITS ---
PROCEDURE INFORMATION: Exam: CT Lumbar Spine Without Contrast Exam date and time: 03/08/2025 12:24 AM Age: 70 years old Clinical indication: Low back pain; Prior surgery; Surgery date: Post-operative (0-2 days); Surgery type: Laminectomy; Additional info: Sp revision laminectomy yesterday, svere worsening pain TECHNIQUE: Imaging protocol: Computed tomography of the lumbar spine without contrast. Radiation optimization: All CT scans at this facility use at least one of these dose optimization techniques: automated exposure control; mA and/or kV adjustment per patient size (includes targeted exams where dose is matched to clinical indication); or iterative reconstruction. COMPARISON: MR lumbar spine wo con* [id number] 02/19/2025 10:34 AM RADIATION DOSE METRICS: Total DLP (mGy-cm): 1393 FINDINGS: Bones/joints: The vertebral body heights are maintained. No fracture of the posterior elements. No spondylolisthesis. Multilevel degenerative endplate changes and disc space narrowing. Straightening of the lumbar lordosis. Recent right-sided laminectomy at L5. Postoperative air and edema at the surgical site. Mild air in the thecal sac. If there is concern for postoperative infection or complication, recommend MRI with contrast. No acute postoperative fracture. Intact vertebral bodies. Soft tissues: Unremarkable. CT/CT lumbar spine wo con* [id number] IMPRESSION: 1. Recent right-sided laminectomy at L5. Postoperative air and edema at the surgical site. Mild air in the thecal sac. If there is concern for postoperative infection or complication, recommend MRI with contrast. 2. No acute postoperative fracture. Intact vertebral bodies.
--- NOTE | 2025-03-08 00:12 | CTR_ITS ---
PROCEDURE INFORMATION: Exam: CT Thoracic Spine Without Contrast Exam date and time: 03/08/2025 12:24 AM Age: 70 years old Clinical indication: Pain in thoracic spine; Prior surgery; Surgery date: Post-operative (0-2 days); Surgery type: Laminectomy; Additional info: Sp revision laminectomy yesterday, svere worsening pain TECHNIQUE: Imaging protocol: Computed tomography of the thoracic spine without contrast. Radiation optimization: All CT scans at this facility use at least one of these dose optimization techniques: automated exposure control; mA and/or kV adjustment per patient size (includes targeted exams where dose is matched to clinical indication); or iterative reconstruction. COMPARISON: MR lumbar spine wo con* [id number] 02/19/2025 10:34 AM RADIATION DOSE METRICS: Total DLP (mGy-cm): 1180.8 FINDINGS: Bones/joints: No acute thoracic spine fracture or subluxation. The vertebral body heights are maintained. No fracture of the posterior elements. No spondylolisthesis. Multilevel degenerative changes. Multilevel thoracic spondylosis, degenerative endplate changes/disc disease, and facet joint arthropathy. There are varying degrees of spinal canal and foraminal stenosis. ACDF, partially in the field of view. Soft tissues: Unremarkable. CT/CT thoracic spin wo con* [id number] IMPRESSION: 1. No acute thoracic spine fracture or subluxation. 2. Multilevel degenerative changes.
[2025-03-08 00:15] VITALS: BP 167/61; PULSE 85; RESP 18; TEMP 37.1; O2SAT 95
--- NOTE | 2025-03-08 00:16 | W.ED.BACK ---
HPI - Back Pain/Injury General: Chief Complaint: Back Pain/Injury Stated Complaint: back pain post back surgery Time Seen by Provider: 03/08/25 00:07 History of Present Illness: Patient is a 70-year-old female with past medical history of HLD, diabetes, hypertension, obesity, ESTELITA who presents to the ED with persistent and gradually worsening back pain following a revision lower lumbar laminectomy yesterday with orthopedics here. The patient reports that the pain was present prior to surgery but is now more severe, making it difficult to turn over in a chair. The patient was discharged home the same day as the procedure and has been able to ambulate and use the bathroom without issue. There is no reported leg weakness, though the right leg wants to give out. No numbness in the thighs is noted, no fecal incontinence. No known fevers, diaphoresis, chills, NVD. She has been alternating hydrocodone and muscle relaxant for discomfort, last dose was 6 hours ago with minimal relief. Related Data Home Medications ?Medication ?Instructions ?Recorded ?Confirmed aspirin 81 mg tablet,delayed 81 mg PO DAILY 01/02/20 03/06/25 release Held on 03/06/25. Instructions: Resume on 03/08/25. cholecalciferol (vitamin D3) 125 125 mcg PO DAILY 01/02/20 03/06/25 mcg (5,000 unit) capsule ferrous sulfate 325 mg (65 mg 325 mg PO DAILY 07/14/21 03/06/25 iron) tablet omega-3 fatty acids 500 mg capsule 500 mg PO DAILY 07/14/21 03/06/25 vitamin B complex 1 tab PO DAILY 07/15/21 03/06/25 levothyroxine 175 mcg tablet 175 mcg PO DAILY 03/30/23 03/06/25 latanoprost 0.005 % eye drops 1 drp ophthalmic (eye) BEDTIME 09/06/23 03/06/25 (Xalatan) carvedilol 12.5 mg tablet 12.5 mg PO BID 03/05/25 03/06/25 metformin 500 mg tablet 500 mg PO DAILY 03/05/25 03/06/25 ropinirole 1 mg tablet 1 mg PO DAILY 03/05/25 03/06/25 Previous Rx's ?Medication ?Instructions ?Recorded nitroglycerin 0.4 mg sublingual 0.4 mg sublingual Q5M PRN chest 10/03/24 tablet pain #20 tabs loratadine 5 mg-pseudoephedrine ER 1 tab PO Q12H PRN allergy symptoms 03/22/24 120 mg tablet,extended #30 tabs release,12hr (Claritin-D 12 Hour) triamcinolone acetonide 0.1 % 1 applic topical DAILY #30 grams 05/11/24 topical cream Manual wheelchair #1 ea 06/04/24 sucralfate 1 gram tablet 1 g PO BID #120 tabs 07/23/24 ondansetron HCl 4 mg tablet 4 mg PO Q8H PRN nausea and 08/04/24 vomiting #30 tabs fluoxetine #1 ea 12/26/24 pantoprazole 20 mg tablet,delayed 20 mg PO BID #180 tabs 12/27/24 release carisoprodol 350 mg tablet 350 mg PO BID PRN muscle pain #30 01/03/25 tabs losartan 100 mg tablet 100 mg PO DAILY #30 tabs 01/24/25 dicyclomine 10 mg capsule 10 mg PO BID PRN abdominal pain 02/12/25 #60 caps hydrocodone 5 mg-acetaminophen 325 1 - 2 tab PO .Q4-6H #40 tabs 03/06/25 mg tablet Allergies Allergy/AdvReac Type Severity Reaction Status Date / Time clarithromycin (From Biaxin) Allergy Severe swells Verified 03/06/25 11:17 metoclopramide (From Reglan) Allergy Unknown ADR-Headach Verified 03/06/25 11:17 e atorvastatin Allergy ADR-Muscle Verified 03/06/25 11:17 Pain buspirone (From BuSpar) Allergy chest pain Verified 03/06/25 11:17 metronidazole (From Flagyl) Allergy ADR-Abdominal Verified 03/06/25 11:17 Pain Penicillins Allergy ALGY-Swell Verified 03/06/25 11:17 Lip/Tongue/Throat tetracycline Allergy ALGY-Swell Verified 03/06/25 11:17 Lip/Tongue/Throat Review of Systems General: Reports: 10 or more systems reviewed and unremarkable except in HPI and below Musc: Reports: back pain PFSH ED PFSH: Medical History (Updated 03/08/25 @ 01:55 by Homar Rust DO) Hyperlipidemia associated with type 2 diabetes mellitus Essential hypertension Subacromial impingement of left shoulder Tear of biceps tendon Acromioclavicular joint arthritis COVID-19 Sleep apnea Hypertension Thyroid cancer Surgical History H/O shoulder surgery Left - Dec 2022 History of eye surgery History of excision of mass (07/16/21) Status post colonoscopy History of esophagogastroduodenoscopy History of liver biopsy S/P angiogram of extremity H/O neck surgery Repeat cervical spine surgery on 03/15/22 H/O: hysterectomy H/O carpal tunnel repair H/O knee surgery History of appendectomy Hx laparoscopic cholecystectomy Family History Other Cancer Social History Smoking and tobacco/nicotine status: never used tobacco/nicotine Alcohol intake: never Substance/Drug Use: never Additional social history: Lost a child at a few months of age due to an intra-abdominal infection. Marital status: Physical Exam Narrative: EXAM NARRATIVE: Patient in mild distress secondary to pain but overall well-appearing, nontoxic, vital stable on arrival, afebrile. GCS 15, alert and oriented x 4, 5 out of 5 motor and sensation to bilateral lower extremities, no saddle anesthesia. Abdomen soft, nontender, nondistended, normal sinus rhythm with no leg swelling. Breathing comfortably on room air, saturating well. Course Vital Signs: Vital signs: Vital Signs Temperature 98.7 F 03/08/25 00:15 Pulse Rate 85 03/08/25 00:15 Respiratory Rate 18 03/08/25 00:42 Blood Pressure 167/61 03/08/25 00:15 Pulse Oximetry 95 03/08/25 00:42 MDM - Back Pain/Injury Medical Decision Making -ddx: Postsurgical pain, complication, cord compression, muscle spasm, cystitis, pyelonephritis, considered but less likely epidural abscess/hematoma, cord compression - Patient arrives with worsening postsurgical pain, had revision laminectomy yesterday, has been using the hydrocodone and muscle relaxant at home with pain still gradually worsening. She has had no fevers, chills or other infectious symptoms, no NVD, she reports no leg weakness, saddle anesthesia, urinary retention, fecal incontinence. Patient mildly hypertensive but otherwise normal vitals, will evaluate with basic and infectious labs, CT thoracic and lumbar spine, provide pain relief and reassess. - Patient with overall reassuring ED evaluation, had mild markers of inflammation, including mild leukocytosis with CRP, ESR elevation but not significant and to be expected in setting of her large operation yesterday. Was mildly anemic but with no concerns for acute blood loss, no severe electrolyte abnormality. CT scans of thoracic and lumbar spine with good positioning of hardware placed yesterday, no immediate complications such as bleeding, seroma, infection. No concerns for cord compression. Patient moderately improved with morphine but had somewhat recurred after manipulation for CT table, talked with her about the results and she was reassured that there was no acute issue and so we agreed to give her a one-time dose of Dilaudid and discharged her home for continued pain control, already has muscle relaxants and hydrocodone at home which she will continue to alternate, supportive care recommendations given, advised to follow-up with original surgeon in the next few days for reevaluation, discharged in stable condition with at bedside, strict return precautions given. Labs 03/08/25 00:10 03/08/25 00:10 Radiology Impressions Lum[address] Spine CT 03/08/25 00:12 IMPRESSION: 1. Recent right-sided laminectomy at L5. Postoperative air and edema at the surgical site. Mild air in the thecal sac. If there is concern for postoperative infection or complication, recommend MRI with contrast. 2. No acute postoperative fracture. Intact vertebral bodies. Thoracic Spine CT 03/08/25 00:12 IMPRESSION: 1. No acute thoracic spine fracture or subluxation. 2. Multilevel degenerative changes. Laboratory Results WBC 13.66 10^3/uL (3.29-11.43) H 03/08/25 00:10 RBC 3.74 10^6/uL (3.85-5.65) L 03/08/25 00:10 Hgb 11.20 g/dL (11.27-16.99) L 03/08/25 00:10 Hct 34.8 % (36-47) L 03/08/25 00:10 MCV 93.0 fl (85-98) 03/08/25 00:10 MCH 29.9 pg (27-33) 03/08/25 00:10 MCHC 32.2 g/dL (30-55) 03/08/25 00:10 RDW 13.2 % (12.1-15.1) 03/08/25 00:10 Plt Count 247 10^3/cmm (157-399) 03/08/25 00:10 MPV 9.6 fL (7.4-10.4) 03/08/25 00:10 Neut % (Auto) 68.9 % 03/08/25 00:10 Lymph % (Auto) 22.0 % 03/08/25 00:10 Newberry % (Auto) 7.5 % 03/08/25 00:10 Eos % (Auto) 0.9 % 03/08/25 00:10 Baso % (Auto) 0.3 % 03/08/25 00:10 Neut # (Auto) 9.41 10^3/uL (1.8-7.7) H 03/08/25 00:10 Lymph # (Auto) 3.0 10^3/uL (0.8-4.8) 03/08/25 00:10 Newberry # (Auto) 1.0 10^3/uL (0.2-0.9) H 03/08/25 00:10 Eos # (Auto) 0.1 10^3/uL (0.0-0.8) 03/08/25 00:10 Baso # (Auto) 0.0 10^3/uL (0.0-0.1) 03/08/25 00:10 Nucleated RBC % (auto) 0 % 03/08/25 00:10 Nucleated RBCs # 0.0 /100WBC 03/08/25 00:10 ESR 29 mm/hr (0-15) H 03/08/25 00:10 Sodium 141 mmol/L (136-145) 03/08/25 00:10 Potassium 3.7 mmol/L (3.5-5.1) 03/08/25 00:10 Chloride 105 mmol/L (98-107) 03/08/25 00:10 Carbon Dioxide 26 mmol/L (22-29) 03/08/25 00:10 Anion Gap 13.7 (5-19) 03/08/25 00:10 BUN 11 mg/dL (8-23) 03/08/25 00:10 Creatinine 0.8 mg/dL (0.5-0.9) 03/08/25 00:10 GFR Calculation 71.1 mL/min (90-130) L 03/08/25 00:10 Glucose 183 mg/dL (65-115) H 03/08/25 00:10 Calculated Osmolality 296 mOsm/kg (285-295) H 03/08/25 00:10 Lactic Acid 2.2 mmol/L (0.5-2.2) 03/08/25 00:10 Calcium 8.9 mg/dL (8.5-10.5) 03/08/25 00:10 Phosphorus 1.6 mg/dL (2.5-4.5) L 03/08/25 00:10 Magnesium 1.6 mg/dL (1.7-2.3) L 03/08/25 00:10 Total Bilirubin 0.2 mg/dL (0.15-1.2) 03/08/25 00:10 AST 14 U/L (0-32) 03/08/25 00:10 ALT 19 U/L (0-33) 03/08/25 00:10 Alkaline Phosphatase 81 U/L (35-105) 03/08/25 00:10 Creatine Kinase 178 U/L (26-192) 03/08/25 00:10 C-Reactive Protein 44.2 mg/L (0.0-4.9) H 03/08/25 00:10 Total Protein 6.4 g/dL (6.6-8.7) L 03/08/25 00:10 Albumin 3.8 g/dL (3.5-5.2) 03/08/25 00:10 Globulin 2.6 g/dL (1.3-4.6) 03/08/25 00:10 All radiology interpretation(s) finalized by discharge Discharge Plan Discharge Patient Disposition: Home Clinical Impression: Postoperative back pain Condition: Stable Prescriptions: No Action aspirin 81 mg tablet,delayed release (DR/EC) 81 mg PO DAILY cholecalciferol (vitamin D3) 125 mcg (5,000 unit) capsule 125 mcg PO DAILY ferrous sulfate 325 mg (65 mg iron) tablet 325 mg PO DAILY omega-3 fatty acids 500 mg capsule 500 mg PO DAILY Claritin-D 12 Hour 5-120 mg tablet extended release 12 hr 1 tab PO Q12H PRN (Reason: allergy symptoms) Qty: 30 3RF levothyroxine 175 mcg tablet 175 mcg PO DAILY nitroglycerin 0.4 mg tablet, sublingual 0.4 mg sublingual Q5M PRN (Reason: chest pain) Qty: 20 3RF Rx Instructions: do not exceed 3 doses per episode triamcinolone acetonide 0.1 % cream 1 applic topical DAILY Qty: 30 6RF (DME) Manual wheelchair See Rx Instructions .Route .MEDSUPPLY Qty: 1 0RF Rx Instructions: As directed sucralfate 1 gram tablet 1 g PO BID Qty: 120 3RF ondansetron HCl 4 mg tablet 4 mg PO Q8H PRN (Reason: nausea and vomiting) Qty: 30 6RF (DME) fluoxetine See Rx Instructions .Route .MEDSUPPLY Qty: 1 0RF Rx Instructions: As directed per psychiatry pantoprazole 20 mg tablet,delayed release (DR/EC) 20 mg PO BID Qty: 180 3RF carisoprodol 350 mg tablet 350 mg PO BID PRN (Reason: muscle pain) Qty: 30 1RF losartan 100 mg tablet 100 mg PO DAILY Qty: 30 3RF dicyclomine 10 mg capsule 10 mg PO BID PRN (Reason: abdominal pain) Qty: 60 6RF metformin 500 mg tablet 500 mg PO DAILY Rx Instructions: TAKE 1 TABLET BY MOUTH EVERY DAY carvedilol 12.5 mg tablet 12.5 mg PO BID Rx Instructions: TAKE 1 TABLET BY MOUTH TWICE DAILY ropinirole 1 mg tablet 1 mg PO DAILY Rx Instructions: TAKE 1 TABLET BY MOUTH EVERY EVENING NEEDED hydrocodone-acetaminophen 5-325 mg tablet 1 - 2 tab PO .Q4-6H Qty: 40 0RF vitamin B complex Tablet Extended Release 1 tab PO DAILY latanoprost [Xalatan] 0.005 % drops 1 drp ophthalmic (eye) BEDTIME Discharge Orders: Discharge ED (Routine); Ordered 03/08/25 Ordered By: Homar Rust Referrals: Gus Booker MD [Primary Care Provider, Family Practice] Discharge Diet: Usual diet Discharge Activity: Increase activity as tolerated Patient Instructions: Opioid Safety, Pain Management, Patient Portal & Rylie Instructions Activity Restrictions/Additional Instructions: You were seen for your back pain in setting of your recent surgery, you were evaluated with labs and CT scans which were ultimately reassuring for no immediate complication from the operation. You improved with pain medication and were deemed stable to be discharged home. Continue to slowly resume normal activity as your body allows, follow-up with your orthopedic surgeon at your earliest convenience for reevaluation in setting of this ER visit. Return to the ED with severe worsening of the pain, fevers, severe leg weakness, numbness in your thighs, inability to urinate, any other emergent concerns. Print Language: Mongolian Coding Level of Care Code ED Housecalls Nurse for Dennys Mendosa
[2025-03-08 00:42] VITALS: RESP 18; O2SAT 95
[2025-03-08] MEDS: morphine 4 mg/mL SDV 1 mL IVP (00:42)
[2025-03-08] MEDS: ondansetron 2 mg/ML SDV 2 mL 4 MG IVP (00:42)
[2025-03-08 00:48] LABS: Hematocrit 34.8 % (36-47); Hemoglobin 11.20 g/dL (11.27-16.99); Mean Corpuscular HGB Conc 32.2 g/dL (30-55); Mean Corpuscular Hemoglobin 29.9 pg (27-33); Mean Corpuscular Volume 93.0 fl (85-98); Nucleated Red Blood Cells % 0 %; Platelet Count 247 10^3/cmm (157-399); Red Blood Count 3.74 10^6/uL (3.85-5.65); White Blood Count 13.66 10^3/uL (3.29-11.43)
[2025-03-08 01:14] LABS: Alanine Aminotransferase 19 U/L (0-33); Albumin Level 3.8 g/dL (3.5-5.2); Alkaline Phosphatase 81 U/L (35-105); Anion Gap 13.7 (5-19); Aspartate Amino Transferase 14 U/L (0-32); Blood Urea Nitrogen 11 mg/dL (8-23); Calcium 8.9 mg/dL (8.5-10.5); Carbon Dioxide 26 mmol/L (22-29); Chloride 105 mmol/L (98-107); Globulin 2.6 g/dL (1.3-4.6); Glucose 183 mg/dL (65-115); Lactic Sepsis W/Reflex 2.2 mmol/L (0.5-2.2); Magnesium 1.6 mg/dL (1.7-2.3); Osmolality Calculated 296 mOsm/kg (285-295); Potassium 3.7 mmol/L (3.5-5.1); Sodium 141 mmol/L (136-145); Total Protein 6.4 g/dL (6.6-8.7)
[2025-03-08 02:06] LABS: Reflex Lactate Order REFLEX LACTIC ORDERD
[2025-03-08] MEDS: HYDROmorphone 0.5 MG/0.5 ML INJ 1 MG IVP (02:10)
[2025-03-08 02:33] VITALS: BP 118/39; PULSE 80; RESP 18; O2SAT 95
== END 2025-03-08 02:35 | disposition home or self-care (01) ==
PROVIDERS: Emergency Provider Student in an Organized Health Care Education/Training Program; PCP Family Medicine
DX: G89.18 Other acute postprocedural pain (principal); M54.9 Dorsalgia, unspecified; Z79.82 Long term (current) use of aspirin; Z79.84 Long term (current) use of oral hypoglycemic drugs; E11.69 Type 2 diabetes mellitus with other specified complication; E78.5 Hyperlipidemia, unspecified; I10 Essential (primary) hypertension; Z85.850 Personal history of malignant neoplasm of thyroid
CPT/HCPCS: 36415; 72128; 72131; 80053; 82550; 83605; 83735; 84100; 85025; 85651; 86140; 96374; 96375; 99285; J1171; J2270; J2405

== ENCOUNTER 2025-03-09 08:02 | Observation (INO) | payer MEDICARE, OTHER, SELFPAY ==
[2025-03-09] VITALS (11 sets, daily range): BP systolic 146–186; BP diastolic 61–96; PULSE 67–92; RESP 16–20; TEMP 36.7–37.3; O2SAT 90–98; BMI 36.0
--- OUTSIDE RECORDS SUMMARY | 2025-03-09 08:07 | XMS_ITS | Encounter Summary ---
Author Organization [facility] Address [address] [place] [address] Care Team Providers Care Anode Rebuilder Name Role Phone Gus Booker MD Primary Care Provider [phone] Encounter Details Date Type Department Care Team (Late st Contact Info) Description 05/11/2001 Outpatient Historical [facility] [address] [place] 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
--- OUTSIDE RECORDS SUMMARY | 2025-03-09 08:07 | XMS_ITS | Encounter Summary ---
Author Organization [facility] Address [address] [place] [address] Care Team Providers Care Account Manager Name Role Phone Gus Booker MD Primary Care Provider [phone] Encounter Details Date Type Department Care Team (Late st Contact Info) Description 03/22/[address] [facility] Specialty Nursing Services [facility] [address] [place] [address] Macho Jones MD NO ADDRESS ON FILE Social History Tobacco Use Types Packs/Day Years Used Date Smoking Tobacco: Never Assessed Comments No Sex and Gender Information Value Date Recorded Sex Assigned at Not on file Legal Sex Female 3:03 AM SHOW DOG TRAINER Gender Identity Not on file Sexual Orientation Not on file documented as of this encounter Plan of Treatment Not on file documented as of this encounter Procedures Procedure Name Priority Date/Time Associated Diagnosis Comments THYROGLOBULIN, TUMOR MARKER Routine 03/29/2008 8:12 AM SHOW DOG TRAINER documented in this encounter Results * THYROGLOBULIN (03/29/2008 8:12 AM SHOW DOG TRAINER) THYROGLOBULIN Sent to Reference Lab [facility] Blood specimen (specimen) 03/29/2008 8:12 AM SHOW DOG TRAINER 03/29/2008 1:49 PM SHOW DOG TRAINER us Macho Jones MD CHEMISTRY ORDERABLES Final R esult INTERFACE SYSTEM Refer to clinic/hospital department [facility] CLIA# [id number] [address] [place] [address] documented in this encounter Visit Diagnoses Not on filedocumented in this encounter Care Teams Account Manager Relationship Specialty Start Date End Date Gus Booker MD [address] [place] [phone] PCP - General Family Practice 03/19/15 documented as of this encounter
--- OUTSIDE RECORDS SUMMARY | 2025-03-09 08:07 | XMS_ITS | Encounter Summary ---
Author Organization [facility] Address [address]ña: [place] [id number] Care Team Providers Care Aml Analyst Name Role Phone Gus Booker MD Primary Care Provider [phone] Encounter Details Date Type Department Care Team (Late st Contact Info) Description 02/18/2000 Inpatient Historical Sanjay Nunez MD NO ADDRESS ON FILE Social History Tobacco Use Types Packs/Day Years Used Date Smoking Tobacco: Never Assessed Comments Unknown Sex and Gender Information Value Date Recorded Sex Assigned at Not on file Legal Sex Female 3:03 AM MANAGER MATH Gender Identity Not on file Sexual Orientation Not on file documented as of this encounter Plan of Treatment Not on file documented as of this encounter Visit Diagnoses Not on filedocumented in this encounter Care Teams Aml Analyst Relationship Specialty Start Date End Date Gus Booker MD [address] [place] [phone] PCP - General Family Practice 03/19/15 documented as of this encounter
--- OUTSIDE RECORDS SUMMARY | 2025-03-09 08:07 | XMS_ITS | Encounter Summary ---
Author Organization [facility] Address [address] [place] [address] Care Team Providers Care Ar Manager Name Role Phone Gus Booker MD Primary Care Provider [phone] Encounter Details Date Type Department Care Team (Latest Contact Info) Description 11/28/2000 Outpatient Historical [facility] [address] [facility] [address] [place] [address] Mayur Vance MD NO ADDRESS ON FILE Other screening mammogram (Primary Dx) Social History Tobacco Use Types Packs/Day Years Used Date Smoking Tobacco: Never Assessed Comments Unknown Sex and Gender Information Value Date Recorded Sex Assigned at Not on file Legal Sex Female 3:03 AM DARKLIGHT INSPECTOR Gender Identity Not on file Sexual Orientation Not on file documented as of this encounter Plan of Treatment Not on file documented as of this encounter Visit Diagnoses Diagnosis Other screening mammogram- Primary documented in this encounter Care Teams Ar Manager Relationship Specialty Start Date End Date Gus Booker MD [address] [place] [phone] PCP - General Family Practice 03/19/15 documented as of this encounter
--- OUTSIDE RECORDS SUMMARY | 2025-03-09 08:07 | XMS_ITS | Encounter Summary ---
Author Organization [facility] Address [address] [place] [address] Care Team Providers Care Supreme Court Judge Name Role Phone Gus Booker MD Primary Care Provider [phone] Encounter Details Date Type Department Care Team (Late st Contact Info) Description 02/05/2008 Outpatient Historical [facility] Services[facility] [address] [place] [address] Macho Jones MD NO ADDRESS ON FILE Social History Tobacco Use Types Packs/Day Years Used Date Smoking Tobacco: Never Assessed Comments No Sex and Gender Information Value Date Recorded Sex Assigned at Not on file Legal Sex Female 3:03 AM RN INTERNAL MEDICINE Gender Identity Not on file Sexual Orientation [...] on filedocumented in this encounter Care Teams Supreme Court Judge Relationship Specialty Start Date End Date Gus Booker MD [address] [place] [phone] PCP - General Family Practice 03/19/15 documented as of this encounter
--- OUTSIDE RECORDS SUMMARY | 2025-03-09 08:07 | XMS_ITS | Encounter Summary ---
Author Organization [facility] Address [address] [place]ña: [place] [address] Care Team Providers Care Measurement Superintendent Name Role Phone Gus Booker MD Primary Care Provider [phone] Encounter Details Date Type Department Care Team (Late st Contact Info) Description 12/19/2001 Outpatient Historical Rosa Jack MD NO ADDRESS ON FILE Social History Tobacco Use Types Packs/Day Years Used Date Smoking Tobacco: Never Assessed Comments Unknown Sex and Gender Information Value Date Recorded Sex Assigned at Not on file Legal Sex Female 3:03 AM SITE ACQUISITION MANAGER Gender Identity Not on file Sexual Orientation Not on file documented as of this encounter Plan of Treatment Not on file documented as of this encounter Visit Diagnoses Not on filedocumented in this encounter Care Teams Measurement Superintendent Relationship Specialty Start Date End Date Gus Booker MD [address] [place] [phone] PCP - General Family Practice 03/19/15 documented as of this encounter
--- OUTSIDE RECORDS SUMMARY | 2025-03-09 08:07 | XMS_ITS | Encounter Summary ---
Author Organization [facility] Address [address] [place] [address] Care Team Providers Care Forestry Workers Name Role Phone Gus Booker MD Primary Care Provider [phone] Encounter Details Date Type Department Care Team (Latest Contact Info) Description 08/09/2005 Outpatient Historical [facility] [address] [place] [address] [place] [address] Joby Slater MD NO ADDRESS ON FILE Pre-Operative Cardiovascular Examination (Primary Dx) Social History Tobacco Use Types Packs/Day Years Used Date Smoking Tobacco: Never Assessed Comments Unknown Sex and Gender Information Value Date Recorded Sex Assigned at Not on file Legal Sex Female 3:03 AM MEDICAL OFFICE RECEPTIONIST Gender Identity Not on file Sexual Orientation [...] INTERFACE SYSTEM Comment: As of 05 the [facility] has changed testing methods. The new reference range is 25-100 The old referance range was 38-126 AST 29 8 - 33 U/L INTERFACE SYSTEM Comment: [facility] of 05 [facility] testing methods. The new [...] HEMATOLOGY ORDERABLES Final Result Performing Organization Address City/State/[facility] Co de Phone Number INTERFACE SYSTEM Refer to clinic/hospital department documented in this encounter Visit Diagnoses Diagnosis Pre-operative cardiovascular examination- Primary documented in this encounter Care Teams Forestry Workers Relationship Specialty Start Date End Date Gus Booker MD [facility] [place] [phone] PCP - General Family Practice 03/19/15 documented as of this encounter
--- OUTSIDE RECORDS SUMMARY | 2025-03-09 08:07 | XMS_ITS | Encounter Summary ---
Author Organization [facility] Address [address] [place] [address] Care Team Providers Care Exercise Science Instructor Name Role Phone Gus Booker MD Primary Care Provider [phone] Encounter Details Date Type Department Care Team (Latest Contact Info) Description 12/10/2003 Outpatient [facility] [address] [place] [address] Rosa Jack MD NO ADDRESS ON FILE SCREENING MAMM-MAILG NEOPL-OTHER (Primary Dx) Social History Tobacco Use Types Packs/Day Years Used Date Smoking Tobacco: Never Assessed Comments Unknown Sex and Gender Information Value Date Recorded Sex Assigned at Not on file Legal Sex Female 3:03 AM ARCHERY INSTRUCTOR Gender Identity Not on file Sexual Orientation Not on file documented as of this encounter Plan of Treatment Not on file documented as of this encounter Visit Diagnoses Diagnosis Other screening mammogram- Primary documented in this encounter Care Teams Exercise Science Instructor Relationship Specialty Start Date End Date Gus Booker MD [address] [place] [phone] PCP - General Family Practice 03/19/15 documented as of this encounter
--- OUTSIDE RECORDS SUMMARY | 2025-03-09 08:07 | XMS_ITS | Encounter Summary ---
Author Organization [facility] Address [address] [place] [address] Care Team Providers Care Brake Engineer Name Role Phone Gus Booker MD Primary Care Provider [phone] Encounter Details Date Type Department Care Team (Latest Contact Info) Description 07/28/[address] [facility] [address] [place] [address] Rosa Jack MD NO ADDRESS ON FILE Swelling, Mass, or Lump in Head and Neck (Primary Dx) Social History Tobacco Use Types Packs/Day Years Used Date Smoking Tobacco: Never Assessed Comments Unknown Sex and Gender Information Value Date Recorded Sex Assigned at Not on file Legal Sex Female 3:03 AM PLANT MAINTENANCE ENGINEER Gender Identity Not on file Sexual [...] by Provider, Historical on 03/07/2009 6:24 PM PLANT MAINTENANCE ENGINEER The patient returned for radioactive uptake measurement [...] neoplasia. Recommend thin-needle aspiration for histologic diagnosis. [facility] Dictated By: Ajith Ji M.D. Electronically Signed By: Ajith Ji M.D. Date Signed: 07/28/05 [facility] Procedure Note Provider, Historical - 03/05/2009 07/28/2005 [...] Primary documented in this encounter Care Teams Brake Engineer Relationship Specialty Start Date End Date Gus Booker MD [address] [place] [phone] PCP - General Family Practice 03/19/15 documented as of this encounter
--- OUTSIDE RECORDS SUMMARY | 2025-03-09 08:07 | XMS_ITS | Encounter Summary ---
Author Organization [facility] Address [address] [place] [address] Care Team Providers Care Web Editor Name Role Phone Gus Booker MD Primary Care Provider Encounter Details Date Type Department Care Team (Late st Contact Info) Description 12/22/2004 Outpatient Historical [facility] Breast [place] [address] [facility] [address] [place] [address] Sabi Foster MD NO ADDRESS ON FILE SCREENING MAMM-MAILG NEOPL NEC (Primary Dx) Social History Tobacco Use Types Packs/Day Years Used Date Smoking Tobacco: Never Assessed Comments Unknown Sex and Gender Information Value Date Recorded Sex Assigned at Not on file Legal Sex Female 3:03 AM HEAD OF SALES Gender Identity Not on file Sexual Orientation Not on file documented as of this encounter Plan of Treatment Not on file documented as of this encounter Visit Diagnoses Diagnosis Other screening mammogram- Primary documented in this encounter Care Teams Web Editor Relationship Specialty Start Date End Date Gus Booker MD [address] [place] [phone] PCP - General Family Practice 03/19/15 documented as of this encounter
--- OUTSIDE RECORDS SUMMARY | 2025-03-09 08:07 | XMS_ITS | Encounter Summary ---
Author Organization [facility] Address [address] [place] [address] Care Team Providers Care Material Liaison Name Role Phone Gus Booker MD Primary Care Provider [phone] Encounter Details Date Type Department Care Team (Latest Contact Info) Description 03/01/2000 Outpatient Historical [facility] Psychiatry[address] [place] [address] Sanjay Nunez MD NO ADDRESS ON FILE Major depressive disorder, recurrent episode, severe, without mention of psychotic behavior (CMS/HCC) (Primary Dx) Social History Tobacco Use Types Packs/Day Years Used Date Smoking Tobacco: Never Assessed Comments Unknown Sex and Gender Information Value Date Recorded Sex Assigned at Not on file Legal Sex Female 3:03 AM OIL DELIVERER Gender Identity Not on file Sexual Orientation Not on file documented as of this encounter Plan of Treatment Not on file documented as of this encounter Visit Diagnoses Diagnosis Major depressive disorder, recurrent episode, severe, without mention of psychotic behavior (CMS/HCC)- Primary Major depressive disorder, recurrent episode, severe, without mention of psychotic behavior documented in this encounter Care Teams Material Liaison Relationship Specialty Start Date End Date Gus Booker MD [address] [place] [phone] PCP - General Family Practice 03/19/15 documented as of this encounter
--- OUTSIDE RECORDS SUMMARY | 2025-03-09 08:07 | XMS_ITS | Encounter Summary ---
Author Organization [facility] Address [address] [place] [address] Care Team Providers Care Patient Svcs Mgr Name Role Phone Gus Booker MD Primary Care Provider [phone] Encounter Details Date Type Department Care Team (Late st Contact Info) Description 02/06/2008 Outpatient Historical [facility] [address] [facility] [address] [place] [address] Social History Tobacco Use Types Packs/Day Years Used Date Smoking Tobacco: Never Assessed Comments No Sex and Gender Information Value Date Recorded Sex Assigned at Not on file Legal Sex Female 3:03 AM CAPPER MACHINE 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
--- OUTSIDE RECORDS SUMMARY | 2025-03-09 08:07 | XMS_ITS | Encounter Summary ---
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 [facility] 1345 Dictated By: Chester Najera Electronically Signed [...] comfortable condition having tolerated the procedure well. [facility] 1345 Dictated By: Chester Najera Electronically Signed By: Chester Najera Electronically Signed By: Abelardo Sams M.D. Date Signed: 08/04/05 [facility] Rosa Jack MD ORDERABLES Final Result documented in this encounter Visit Diagnoses Diagnosis Malignant neoplasm of thyroid gland (CMS/HCC)- Primary Malignant neoplasm of thyroid gland documented in this encounter Care Teams Client Service Representative Relationship Specialty Start Date End Date Gus Booker MD [address] [place] [phone] PCP - General Family Practice 03/19/15 documented as of this encounter
--- OUTSIDE RECORDS SUMMARY | 2025-03-09 08:07 | XMS_ITS | Encounter Summary ---
Author Organization [facility] Address [address] [place] [address] Care Team Providers Care Field Administrative Assistant Name Role Phone Gus Booker MD Primary Care Provider [phone] Encounter Details Date Type Department Care Team (Latest Contact Info) Description 01/30/2008 Outpatient [facility] [address] [place] [address] Rosa Jack MD NO ADDRESS ON FILE [...] on file Legal Sex Female 3:03 AM PAPER CONE MAKER Gender Identity Not on file Sexual Orientation [...] 02/06/2008 3:26 PM CDT Report Available in [facility] Procedure Note 05/20/2008 Report Available in [facility] Rosa Jack MD MAMMO ORDERABLES Final Result documented in this encounter Visit Diagnoses Diagnosis Personal history of malignant neoplasm of large intestine Asymptomatic postmenopausal status (age-related) (natural) Acquired absence of organ, genital organs Family history of malignant neoplasm of breast documented in this encounter Care Teams Field Administrative Assistant Relationship Specialty Start Date End Date Gus Booker MD [address] [place] [phone] PCP - General Family Practice 03/19/15 documented as of this encounter
--- OUTSIDE RECORDS SUMMARY | 2025-03-09 08:07 | XMS_ITS | Encounter Summary ---
Author Organization [facility] Address [address] [place] [address] Care Team Providers Care Drill Bit Sharpener Name Role Phone Gus Booker MD Primary Care Provider [phone] Encounter Details Date Type Department Care Team (Latest Contact Info) Description 12/22/2004 Outpatient [facility] Breast Center [facility] [address] [place] [address] Rosa Jack MD NO ADDRESS ON FILE SCREENING MAMM-MAILG NEOPL NEC (Primary Dx) Social History Tobacco Use Types Packs/Day Years Used Date Smoking Tobacco: Never Assessed Comments Unknown Sex and Gender Information Value Date Recorded Sex Assigned at Not on file Legal Sex Female 3:03 AM RESOLUTION REP Gender Identity Not on file Sexual Orientation Not on file documented as of this encounter Plan of Treatment Not on file documented as of this encounter Visit Diagnoses Diagnosis Other screening mammogram- Primary documented in this encounter Care Teams Drill Bit Sharpener Relationship Specialty Start Date End Date Gus Booker MD [address] [place] [phone] PCP - General Family Practice 03/19/15 documented as of this encounter
--- OUTSIDE RECORDS SUMMARY | 2025-03-09 08:07 | XMS_ITS | Encounter Summary ---
Author Organization [facility] Address [address] [place] [address] Care Team Providers Care Corporate Executive Name Role Phone Gus Booker MD Primary Care Provider [phone] Encounter Details Date Type Department Care Team (Late st Contact Info) Description 03/26/2008 Outpatient Historical [facility] [address] [place] [address] Macho Jones MD NO ADDRESS ON FILE Social History Tobacco Use Types Packs/Day Years Used Date Smoking Tobacco: Never Assessed Comments No Sex and Gender Information Value Date Recorded Sex Assigned at Not on file Legal Sex Female 3:03 AM RELATIONS MGR Gender Identity Not on file Sexual Orientation Not on file documented as of this encounter Plan of Treatment Not on file documented as of this encounter Procedures Procedure Name Priority Date/Time Associated Diagnosis Comments NM THYROID CA METS WB POST THER Routine 03/27/2008 9:15 AM RELATIONS MGR documented in this encounter Results * NM THYROID CA METS WB POST THER (03/27/2008 9:15 AM RELATIONS MGR) Anatomical Region Laterality Modality Neck Other 03/27/2008 9:15 AM RELATIONS MGR Narrative 03/28/2008 9:11 AM RELATIONS MGR Radionuclide Thyroid Carcinoma Metastasis Whole Body Imaging [...] on filedocumented in this encounter Care Teams Corporate Executive Relationship Specialty Start Date End Date Gus Booker MD [address] [place] [phone] PCP - General Family Practice 03/19/15 documented as of this encounter
--- OUTSIDE RECORDS SUMMARY | 2025-03-09 08:07 | XMS_ITS | Encounter Summary ---
Author Organization [facility] Address [address] [place] [address] Care Team Providers Care Sash Repairer Name Role Phone Gus Booker MD Primary Care Provider [phone] Encounter Details Date Type Department Care Team (Latest Contact Info) Description 03/15/2000 Outpatient Historical [facility] Psychiatry[address] [place] [address] Sanjay Nunez MD NO ADDRESS ON FILE Major depressive disorder, recurrent episode, severe, without mention of psychotic behavior (CMS/HCC) (Primary Dx) Social History Tobacco Use Types Packs/Day Years Used Date Smoking Tobacco: Never Assessed Comments Unknown Sex and Gender Information Value Date Recorded Sex Assigned at Not on file Legal Sex Female 3:03 AM PLASTIC PRESS OPERATOR Gender Identity Not on file Sexual Orientation Not on file documented as of this encounter Plan of Treatment Not on file documented as of this encounter Visit Diagnoses Diagnosis Major depressive disorder, recurrent episode, severe, without mention of psychotic behavior (CMS/HCC)- Primary Major depressive disorder, recurrent episode, severe, without mention of psychotic behavior documented in this encounter Care Teams Sash Repairer Relationship Specialty Start Date End Date Gus Booker MD [address] [place] [phone] PCP - General Family Practice 03/19/15 documented as of this encounter
--- OUTSIDE RECORDS SUMMARY | 2025-03-09 08:07 | XMS_ITS | Encounter Summary ---
Author Organization [facility] Address [address] [place] [address] Care Team Providers Care Log Tumbler Name Role Phone Gus Booker MD Primary Care Provider [phone] Encounter Details Date Type Department Care Team (Latest Contact Info) Description 05/11/2001 Outpatient Historical [facility] Ear, Nose and Th[facility]at [address] [place] [phone] Yosef Kennedy MD NO ADDRESS ON FILE Dysfunct eustachian tube (Primary Dx); INFEC OTITIS EXTERNA NOS Social History Tobacco Use Types Packs/Day Years Used Date Smoking Tobacco: Never Assessed Comments Unknown Sex and Gender Information Value Date Recorded Sex Assigned at Not on file Legal Sex Female 3:03 AM BOOM CRANE OPERATOR Gender Identity Not on file Sexual Orientation Not on file documented as of this encounter Plan of Treatment Not on file documented as of this encounter Visit Diagnoses Diagnosis Dysfunct eustachian tube- Primary Dysfunction of Eustachian tube Infective otitis externa, unspecified documented in this encounter Care Teams Log Tumbler Relationship Specialty [place] [address] [place] [phone] PCP - General Family Practice 03/19/15 documented as of this encounter
--- OUTSIDE RECORDS SUMMARY | 2025-03-09 08:07 | XMS_ITS | Encounter Summary ---
Author Organization [facility] Address [address] [place] [address] Care Team Providers Care Lion Trainer Name Role Phone Gus Booker MD Primary Care Provider [phone] Encounter Details Date Type Department Care Team (Latest Contact Info) Description 07/20/2005 Outpatient Historical [facility] Imaging Services [address] [place] [phone] Rosa Jack MD NO ADDRESS ON FILE Unspecified Disorder of Thyroid (Primary Dx) Social History Tobacco Use Types Packs/Day Years Used Date Smoking Tobacco: Never Assessed Comments Unknown Sex and Gender Information Value Date Recorded Sex Assigned at Not on file Legal Sex Female 3:03 AM SALES PROMOTION DIRECTOR Gender Identity Not on file Sexual [...] cm. Correlation with nuclear medicine scan recommended. [facility] Dictated By: Archie Holloway M.D., Ph.D. Electronically Signed By: Archie Holloway M.D., Ph.D. Date Signed: 07/21/05 [facility] Procedure Note Provider, Historical - [...] 1.5 cm. Correlation with nuclearmedicine scan recommended. [facility] Dictated By: Archie Holloway M.D., Ph.D. Electronically Signed By: Archie Holloway M.D., Ph.D. Date Signed: 07/21/05 [facility] Rosa Jack MD US ORDERABLES Final Result documented in this encounter Visit Diagnoses Diagnosis Unspecified disorder of thyroid- Primary documented in this encounter Care Teams Lion Trainer Relationship Specialty Start Date End Date Gus Booker MD [address] [place] [phone] PCP - General Family Practice 03/19/15 documented as of this encounter
--- OUTSIDE RECORDS SUMMARY | 2025-03-09 08:07 | XMS_ITS | Encounter Summary ---
Author Organization [facility] Address [address] [place] [address] Care Team Providers Care Medical Assistant Name Role Phone Gus Booker MD Primary Care Provider [phone] Encounter Details Date Type Department Care Team (Latest Contact Info) Description 12/10/2003 Outpatient Historical [facility] Breast [place] [address] [facility] [address] [place] [address] Mayur Vance MD NO ADDRESS ON FILE SCREENING MAMM-MAILG NEOPL-OTHER (Primary Dx) Social History Tobacco Use Types Packs/Day Years Used Date Smoking Tobacco: Never Assessed Comments Unknown Sex and Gender Information Value Date Recorded Sex Assigned at Not on file Legal Sex Female 3:03 AM CONTROL OPERATOR FLOW COAT Gender Identity Not on file Sexual Orientation Not on file documented as of this encounter Plan of Treatment Not on file documented as of this encounter Visit Diagnoses Diagnosis Other screening mammogram- Primary documented in this encounter Care Teams Medical Assistant Relationship Specialty Start Date End Date Gus Booker MD [address] [place] [phone] PCP - General Family Practice 03/19/15 documented as of this encounter
--- OUTSIDE RECORDS SUMMARY | 2025-03-09 08:07 | XMS_ITS | Encounter Summary ---
Author Organization [facility] Address [address] [place] [address] Care Team Providers Care Contract Serviceman Name Role Phone Gus Booker MD Primary Care Provider [phone] Encounter Details Date Type Department Care Team (Latest Contact Info) Description 12/19/2001 Outpatient Historical [facility] Breast [place] [address] [facility] [address] [place] [address] Mayur Vance MD NO ADDRESS ON FILE SCREENING MAMM-MAILG NEOPL-OTHER (Primary Dx) Social History Tobacco Use Types Packs/Day Years Used Date Smoking Tobacco: Never Assessed Comments Unknown Sex and Gender Information Value Date Recorded Sex Assigned at Not on file Legal Sex Female 3:03 AM SECY Gender Identity Not on file Sexual Orientation Not on file documented as of this encounter Plan of Treatment Not on file documented as of this encounter Visit Diagnoses Diagnosis Other screening mammogram- Primary documented in this encounter Care Teams Contract Serviceman Relationship Specialty Start Date End Date Gus Booker MD [address] [place] [phone] PCP - General Family Practice 03/19/15 documented as of this encounter
--- OUTSIDE RECORDS SUMMARY | 2025-03-09 08:08 | XMS_ITS ---
Author Organization [facility] Address [address] [place] [address] Care Team Providers Care Ingredient Scaler Name Role Phone Gus Booker MD Primary Care Provider [phone] Active Problems Problem Noted Date Diagnosed Date [...]
--- OUTSIDE RECORDS SUMMARY | 2025-03-09 08:08 | XMS_ITS | Encounter Summary ---
Author Organization [facility] Address [address] [place] [address] Care Team Providers Care Managing Supervisor Name Role Phone Gus Booker MD Primary Care Provider [phone] Reason for Referral * Radiology Services (Routine) - Closed Specialty Diagnoses / Procedures Referred By Contac t Referred To Contact Radiology Diagnoses Inconclusive mammography Procedures MAMMO DIAG UNI RIGHT 3D NUPUR W OR WO CAD CHG DIAGNOSTIC MAMMOGRAPHY COMPUTER-AIDED DETCJ UNI CHG DIGITAL BREAST TOMOSYNTHESIS UNILATERAL Gus Booker MD [address] [place] [address] Phone: tel: fax: [facility] [address] [address] Phone: tel: fax: Referral ID Status Reason Start Date Expiration Date Visits Requested Visits Authorized [id number] Closed Performing Department To Schedule (SGF) 03/12/2019 04/11/2020 1 1 IT AND COLLECTION MANAGER Encounter Details Date Type Department Care Team (Latest Contact Info) Description 03/12/2019 Ancillary Orders [facility] [address] [address] Gus Booker MD [address] [place] [address] Inconclusive mammography Social History Tobacco Use Types Packs/Day Years Used Date Smoking Tobacco: Never Smokeless Tobacco: Never Alcohol Use Standard Drinks/Week Comments No 0 (1 standard drink = 0.6 oz pur e alcohol) Comments No Sex and Gender Information Value Date Recorded Sex Assigned at Not on file Legal Sex Female 3:03 AM CREDIT AND COLLECTION MANAGER Gender Identity Not on file Sexual Orientation Not on file Occupation Industry Job Start Date Job End Date Not on file Not on file Not on file Not on file documented as of this encounter Plan of Treatment Not on file documented as of this encounter Results * MAMMO DIAG UNI RIGHT 3D NUPUR W OR WO CAD (03/21/2019 2:15 PM CREDIT AND COLLECTION MANAGER) Anatomical Region Laterality Modality Breast Right Mammography 03/21/2019 1:56 PM CREDIT AND COLLECTION MANAGER Impressions 03/21/2019 3:03 PM CREDIT AND COLLECTION MANAGER : The asymmetry does not persist as changed or suspicious and was probably made to appear so by summation artifact. I would recommend routine screening mammogram in one year. Patient received a result/recommendation letter. [id number] Narrative 03/21/2019 3:03 PM CREDIT AND COLLECTION MANAGER Right diagnostic mammogram 3-D spot nupur CC [...] mammogram documented in this encounter Care Teams Managing Supervisor Relationship Specialty Start Date End Date Gus Booker MD [address] [place] [phone] PCP - General Family Practice 03/19/15 documented as of this encounter
--- OUTSIDE RECORDS SUMMARY | 2025-03-09 08:08 | XMS_ITS | Encounter Summary ---
Author Organization [facility] Address [address] [place] [address] Care Team Providers Care Cw Operator Name Role Phone Gus Booker MD Primary Care Provider [phone] Reason for Referral * Outpatient Services (Routine) - Closed Specialty Diagnoses / Procedures Referred By Contac t Referred To Contact Diagnoses Abnormal EKG Procedures NM MYOCARD PERF IMAG SPECT MULT Gus Booker MD [address] [place] [address] Phone: tel: fax: [facility] Pre-Registration [place] CALL TO MAKE APPOINTMENT ONLY [address] [place] [address] Phone: tel: fax: Referral ID Status Reason Start Date Expiration Date V isits Requested Visits Authorized [id number] Closed F MC TO SCHEDULE (SGF) 04/03/2015 05/03/2016 1 1 GOODS DRIER Encounter Details Date Type Department Care Team (Latest Contact Info) Description 04/03/2015 Ancillary Orders [facility] Pre-Registration [place] CALL TO MAKE APPOINTMENT ONLY [address] [place] [address] Gus Booker MD [address] [place] [address] Abnormal EKG (Primary Dx) Social History Tobacco Use Types Packs/Day Years Used Date Smoking Tobacco: Never Smokeless Tobacco: Never Alcohol Use Standard Drinks/Week Comments No 0 (1 standard drink = 0.6 oz pur e alcohol) Comments No Sex and Gender Information Value Date Recorded Sex Assigned at Not on file Legal Sex Female 3:03 AM LONG GOODS DRIER Gender Identity Not on file Sexual Orientation Not on file Occupation Industry Job Start Date Job End Date Not on file Not on file Not on file Not on file documented as of this encounter Plan of Treatment Not on file documented as of this encounter Results * NM MYOCARD PERF IMAG SPECT MULT (04/15/2015 9:59 AM LONG GOODS DRIER) EJECTION FRACTION 84 50 - 65 percent INTERFACE SYSTEM Risk Stratification INTERFACE SYSTEM 04/15/2015 7:58 AM LONG GOODS DRIER Narrative INTERFACE SYSTEM - 04/15/2015 10:32 AM LONG GOODS DRIER Rest/Stress Single Isotope SPECT Myocardial Perfusion Imaging [...] available for direct comparison. Dr. Sonia MD, [facility] This laboratory has been accredited by the [...] available for direct comparison. Dr. Sonia MD, [facility] This laboratory has been accredited by the Intersocietal Commission for the Accreditation of Nuclear Medicine Laboratories (ICANL). External Provider [facility] [place] ORDERABLES Final Resu lt INTERFACE SYSTEM Refer to clinic/hospital department documented in this encounter Visit Diagnoses Diagnosis Abnormal EKG- Primary Nonspecific abnormal electrocardiogram (ECG) (EKG) Abnormal EKG Nonspecific abnormal electrocardiogram (ECG) (EKG) documented in this encounter Care Teams Cw Operator Relationship Specialty Start Date End Date Gus Booker MD [address] [place] [phone] PCP - General Family Practice 03/19/15 documented as of this encounter
--- OUTSIDE RECORDS SUMMARY | 2025-03-09 08:08 | XMS_ITS | Encounter Summary ---
Author Organization [facility] Address [address] [place] [address] Care Team Providers Care Rental Representative Name Role Phone Gus Booker MD Primary Care Provider [phone] Encounter Details Date Type Department Care Team (Latest Contact Info) Description 02/11/2009 Ancillary Orders [facility] [address] [facility] [address] [place] [address] Rosa Jack MD NO ADDRESS ON FILE Other (Abnormal) Findings on Radiological Examination of Breast Social History Tobacco Use Types Packs/Day Years Used Date Smoking Tobacco: Never Assessed Comments No Sex and Gender Information Value Date Recorded Sex Assigned at Not on file Legal Sex Female 3:03 AM DIRECTOR INVESTOR RELATIONS Gender Identity Not on file Sexual Orientation Not on file documented as of this encounter Plan of Treatment Not on file documented as of this encounter Results * MAMMO DIGITAL DIAG UNI LEFT (02/19/2009 1:38 PM DIRECTOR INVESTOR RELATIONS) Anatomical Region Laterality Modality Breast Left Mammography Narrative 02/19/2009 3:57 PM DIRECTOR INVESTOR RELATIONS LEFT DIGITAL ADDITIONAL VIEWS AND RIGHT BREAST [...] by the Computer Aided Detection System (CAD), [employer] Taxer, Version 8.3. RIGHT BREAST ULTRASOUND: The nodule [...] ultrasound exam, the patient indicated to the vascular technologist that she had severe bilateral breast [...] analyzed by the Computer Aided DetectionSystem (CAD), [employer] ImageStudio SBVcker, Version 8.3. RIGHT BREAST ULTRASOUND: The nodule [...] breast documented in this encounter Care Teams Rental Representative Relationship Specialty Start Date End Date Gus Booker MD [address] [place] [address] PCP - General Family Practice 03/19/15 documented as of this encounter
--- OUTSIDE RECORDS SUMMARY | 2025-03-09 08:08 | XMS_ITS | Encounter Summary ---
Author Organization [facility] Address [address] [place] [address] Care Team Providers Care Test Designer Name Role Phone Gus Booker MD Primary Care Provider [phone] Encounter Details Date Type Department Care Team (Late st Contact Info) Description 12/11/[address] [facility] [address] [facility] [address] [place] [address] Rosa Jack MD NO ADDRESS ON FILE Other Screening Mammogram Social History Tobacco Use Types Packs/Day Years Used Date Smoking Tobacco: Never Assessed Comments No Sex and Gender Information Value Date Recorded Sex Assigned at Not on file Legal Sex Female 3:03 AM L TACKER Gender Identity Not on file Sexual Orientation Not on file documented as of this encounter Plan of Treatment Not on file documented as of this encounter Visit Diagnoses Diagnosis Other screening mammogram documented in this encounter Care Teams Test Designer Relationship Specialty Start Date End Date Gus Booker MD [address] [place] [address] PCP - General Family Practice 03/19/15 documented as of this encounter
--- OUTSIDE RECORDS SUMMARY | 2025-03-09 08:08 | XMS_ITS | Encounter Summary ---
Author Organization [facility] Address [address] [place] [address] Care Team Providers Care Farm Product Purchaser Name Role Phone Gus Booker MD Primary Care Provider [phone] Encounter Details Date Type Department Care Team (Latest Contact Info) Description 08/13/[address] [facility] [address] [place] [address] Rosa Jack MD NO ADDRESS ON FILE Unspecified Chest Pain (Primary Dx) Social History Tobacco Use Types Packs/Day Years Used Date Smoking Tobacco: Never Assessed Comments Unknown Sex and Gender Information Value Date Recorded Sex Assigned at Not on file Legal Sex Female 3:03 AM MANAGER ENT Gender Identity Not on file Sexual Orientation [...] Signed: 08/13/05 JAW us Rosa Jack MD IN ORDERABLES Final Result INTERFACE SYSTEM Refer to [...] Primary documented in this encounter Care Teams Farm Product Purchaser Relationship Specialty [place] [address] [place] [phone] PCP - General Family Practice 03/19/15 documented as of this encounter
--- OUTSIDE RECORDS SUMMARY | 2025-03-09 08:08 | XMS_ITS | Encounter Summary ---
Author Organization [facility] Address [address] [place] [address] Care Team Providers Care Carpenter'S Assistant Name Role Phone Gus Booker MD Primary Care Provider [phone] Reason for Referral * Outpatient Services (Routine) - Closed Specialty Diagnoses / Procedures Referred By Contac t Referred To Contact Diagnoses Abnormal EKG Procedures NM PHARMACOLOGICAL STRESS TEST Gus Booker MD [address] [place] [address] Phone: tel: fax: [facility] Pre-Registration [place] CALL TO MAKE APPOINTMENT ONLY [address] [place] [address] Phone: tel: fax: Referral ID Status Reason Start Date Expiration Date V isits Requested Visits Authorized [id number] Closed F MC TO SCHEDULE (SGF) 04/03/2015 05/03/2016 1 1 RVISOR BROADLOOM Encounter Details Date Type Department Care Team (Latest Contact Info) Description 04/03/2015 Ancillary Orders [facility] Pre-Registration [place] CALL TO MAKE APPOINTMENT ONLY [address] [place] [address] Gus Booker MD [address] [place] [address] Abnormal EKG (Primary Dx) Social History Tobacco Use Types Packs/Day Years Used Date Smoking Tobacco: Never Smokeless Tobacco: Never Alcohol Use Standard Drinks/Week Comments No 0 (1 standard drink = 0.6 oz pur e alcohol) Comments No Sex and Gender Information Value Date Recorded Sex Assigned at Not on file Legal Sex Female 3:03 AM SUPERVISOR BROADLOOM Gender Identity Not on file Sexual Orientation Not on file Occupation Industry Job Start Date Job End Date Not on file Not on file Not on file Not on file documented as of this encounter Plan of Treatment Not on file documented as of this encounter Results * NM PHARMACOLOGICAL STRESS TEST (04/15/2015 10:00 AM SUPERVISOR BROADLOOM) 04/15/2015 8:08 AM SUPERVISOR BROADLOOM Narrative INTERFACE SYSTEM - 04/15/2015 10:32 AM SUPERVISOR BROADLOOM Rest/Stress Single Isotope SPECT Myocardial Perfusion Imaging [...] available for direct comparison. Dr. Sonia MD, [facility] This laboratory has been accredited by [...] available for direct comparison. Dr. Sonia MD, [facility] This laboratory has been accredited by the Intersocietal Commission for the Accreditation of Nuclear Medicine Laboratories (ICANL). External Provider [facility] ORDERABLES Final Resu lt INTERFACE SYSTEM Refer to clinic/hospital department documented in this encounter Visit Diagnoses Diagnosis Abnormal EKG- Primary Nonspecific abnormal electrocardiogram (ECG) (EKG) Abnormal EKG Nonspecific abnormal electrocardiogram (ECG) (EKG) documented in this encounter Care Teams Carpenter'S Assistant Relationship Specialty Start Date End Date Gus Booker MD [address] [place] [phone] PCP - General Family Practice 03/19/15 documented as of this encounter
--- OUTSIDE RECORDS SUMMARY | 2025-03-09 08:08 | XMS_ITS | Encounter Summary ---
Author Organization [facility] Address [address] [place] [address] Care Team Providers Care Concreting Supervisor Name Role Phone Gus Booker MD Primary Care Provider [phone] Encounter Details Date Type Department Care Team (Latest Contact Info) Description 04/10/2008 Outpatient Historical [facility] Jose Rip [address] [place] [address] Macho Jones MD NO ADDRESS ON FILE Malignant Neoplasm of Thyroid Gland (CMS/HCC) Social History Tobacco Use Types Packs/Day Years Used Date Smoking Tobacco: Never Assessed Comments No Sex and Gender Information Value Date Recorded Sex Assigned at Not on file Legal Sex Female 3:03 AM ON SITE SERVICES SPECIALIST Gender Identity Not on file Sexual Orientation Not on file documented as of this encounter Plan of Treatment Not on file documented as of this encounter Procedures Procedure Name Priority Date/Time Associated Diagnosis Comments CT SOFT TISSUE NECK W CONTRAST Routine 04/12/2008 3:04 PM ON SITE SERVICES SPECIALIST CT CHEST W CONTRAST Routine 04/12/2008 3 :03 PM ON SITE SERVICES SPECIALIST POC CREATININE Routine 04/12/2008 2:15 PM ON SITE SERVICES SPECIALIST documented in this encounter Results * CT SOFT TISSUE NECK W CONTRAST (04/12/2008 3:04 PM ON SITE SERVICES SPECIALIST) Anatomical Region Laterality Modality Neck Other 04/12/2008 3:04 PM ON SITE SERVICES SPECIALIST Narrative 04/12/2008 3:36 PM ON SITE SERVICES SPECIALIST 50 mL of Optiray-240 were given during [...] CT CHEST W CONTRAST (04/12/2008 3:03 PM ON SITE SERVICES SPECIALIST) Anatomical Region Laterality Modality Chest Other 04/12/2008 3:03 PM ON SITE SERVICES SPECIALIST Narrative 04/13/2008 5:36 PM ON SITE SERVICES SPECIALIST CT of the chest was performed after [...] * (ABNORMAL) POC CREATININE (04/12/2008 2:15 PM ON SITE SERVICES SPECIALIST) CREATININE POC 0.7(L) 0.7 - 1.2 mg/dL [facility] Capillary blood specimen (specimen) 04/12/2008 2:15 PM ON SITE SERVICES SPECIALIST 04/12/2008 5:13 PM ON SITE SERVICES SPECIALIST Macho Jones MD POINT OF CARE TESTING Final Result INTERFACE SYSTEM Refer to clinic/hospital department [facility] CLIA# [id number] [address] [place] [address] documented in this encounter Visit Diagnoses Diagnosis Malignant neoplasm of thyroid gland (CMS/HCC) Malignant neoplasm of thyroid gland documented in this encounter Care Teams Concreting Supervisor Relationship Specialty Start Date End Date Gus Booker MD [address] [place] [phone] PCP - General Family Practice 03/19/15 documented as of this encounter
--- OUTSIDE RECORDS SUMMARY | 2025-03-09 08:08 | XMS_ITS | Encounter Summary ---
Author Organization [facility] Address [address] [place] [address] Care Team Providers Care Group Home Worker Name Role Phone Gus Booker MD Primary Care Provider [phone] Reason for Referral * Outpatient Services (Routine) - Closed Specialty Diagnoses / Procedures Referred By Contac t Referred To Contact Diagnoses Follow-up examination of abnormal mammogram Procedures MAMMO DIAGNOSTIC UNI LEFT W OR WO CAD MAMMO DIAG UNI LEFT 3D NUPUR W OR WO CAD MAMMO DIAGNOSTIC UNI LEFT W OR WO CAD Gus Booker MD [address] [place] [address] Phone: tel: fax: [facility] Pre-Registration [place] CALL TO MAKE APPOINTMENT ONLY [address] [place] [address] Phone: tel: fax: Referral ID Status Reason Start Date Expiration Date V isits Requested Visits Authorized [id number] Closed F MC TO SCHEDULE (SGF) 05/25/2017 06/25/2018 1 1 SITION LEAD Encounter Details Date Type Department Care Team (Latest Contact Info) Description 06/10/2017 Ancillary Orders [facility] CALL TO MAKE APPOINTMENT ONLY [address] [place] [address] Gus Booker MD [address] [place] [address] Follow-up examination of abnormal mammogram Social History Tobacco Use Types Packs/Day Years Used Date Smoking Tobacco: Never Smokeless Tobacco: Never Alcohol Use Standard Drinks/Week Comments No 0 (1 standard drink = 0.6 oz pur e alcohol) Comments No Sex and Gender Information Value Date Recorded Sex Assigned at Not on file Legal Sex Female 3:03 AM TRANSITION LEAD Gender Identity Not on file Sexual Orientation Not on file Occupation Industry Job Start Date Job End Date Not on file Not on file Not on file Not on file documented as of this encounter Plan of Treatment Not on file documented as of this encounter Results * (ABNORMAL) MAMMO DIAGNOSTIC UNI LEFT W OR WO CAD (06/10/2017 2:19 PM TRANSITION LEAD) Anatomical Region Laterality Modality Breast Left Mammography 06/10/2017 2:19 PM TRANSITION LEAD Narrative 06/13/2017 11:02 AM TRANSITION LEAD Left Diagnostic Mammogram, 06/10/2017: The patient had [...] by the Computer Aided Detection System (CAD), [employer] ImageChecker, Version 8.3. The patient was given a verbal and written report. Impression: No significant change is seen on the left status post benign stereotactic biopsy. I would recommend bilateral follow-up diagnostic mammogram in 6 months' time. [id number] us External Provider [facility] MAMMO ORDERABLES Final Res ult documented in this encounter Visit Diagnoses Diagnosis Follow-up examination of abnormal mammogram Abnormal mammogram, unspecified Follow-up examination of abnormal mammogram Abnormal mammogram, unspecified documented in this encounter Care Teams Group Home Worker Relationship Specialty Start Date End Date Gus Booker MD [address] [place] [phone] PCP - General Family Practice 03/19/15 documented as of this encounter
--- OUTSIDE RECORDS SUMMARY | 2025-03-09 08:08 | XMS_ITS | Encounter Summary ---
Author Organization [facility] Address [address] [place] [address] Care Team Providers Care Commercial Agent Name Role Phone Gus Booker MD Primary Care Provider [phone] Encounter Details Date Type Department Care Team (Late st Contact Info) Description 04/24/2007 Outpatient Historical [facility] [address] [place] [phone] Social History Tobacco Use Types Packs/Day Years Used Date Smoking Tobacco: Never Assessed Comments Unknown Sex and Gender Information Value Date Recorded Sex Assigned at Not on file Legal Sex Female 3:03 AM SALES REPRESENTATIVE METALS Gender Identity Not on file Sexual Orientation Not on file documented as of this encounter Plan of Treatment Not on file documented as of this encounter Visit Diagnoses Not on filedocumented in this encounter Care Teams Commercial Agent Relationship Specialty Start Date End Date Gus Booker MD [address] [place] [phone] PCP - General Family Practice 03/19/15 documented as of this encounter
--- OUTSIDE RECORDS SUMMARY | 2025-03-09 08:08 | XMS_ITS | Encounter Summary ---
Author Organization [facility] Address [address] [place] [address] Care Team Providers Care Criminal Investigative Agent Name Role Phone Gus Booker MD Primary Care Provider [phone] Encounter Details Date Type Department Care Team (Late st Contact Info) Description 01/29/2007 Outpatient Historical [facility] Specialty Nursing Services [facility] [address] [place] [phone] Macho Jones MD NO ADDRESS ON FILE Social History Tobacco Use Types Packs/Day Years Used Date Smoking Tobacco: Never Assessed Comments Unknown Sex and Gender Information Value Date Recorded Sex Assigned at Not on file Legal Sex Female 3:03 AM APICULTURE TEACHER Gender Identity Not on file Sexual [...] by Provider, Historical on 03/09/2009 7:01 PM APICULTURE TEACHER The patient returned 11 days following radioiodine [...] Signed: 01/31/07 JAW us Macho Jones MD IN ORDERABLES Edited INTERFACE SYSTEM Refer to clinic/hospital department documented in this encounter Visit Diagnoses Not on filedocumented in this encounter Care Teams Criminal Investigative Agent Relationship Specialty Start Date End Date Gus Booker MD [address] [place] [phone] PCP - General Family Practice 03/19/15 documented as of this encounter
--- OUTSIDE RECORDS SUMMARY | 2025-03-09 08:08 | XMS_ITS | Encounter Summary ---
Author Organization [facility] Address [address] [place] [address] Care Team Providers Care Rewriter Name Role Phone Gus Booker MD Primary Care Provider Encounter Details Date Type Department Care Team (Latest Contact Info) Description 05/25/2017 Ancillary Orders [facility] Pre-Registration [place] CALL TO MAKE APPOINTMENT ONLY [address] [place] [address] Gus Booker MD [address] [facility] [place] [address] Follow-up examination of abnormal mammogram Social History Tobacco Use Types Packs/Day Years Used Date Smoking Tobacco: Never Smokeless Tobacco: Never Alcohol Use Standard Drinks/Week Comments No 0 (1 standard drink = 0.6 oz pur e alcohol) Comments No Sex and Gender Information Value Date Recorded Sex Assigned at Not on file Legal Sex Female 3:03 AM FILM PRODUCER Gender Identity Not on file Sexual Orientation Not on file Occupation Industry Job Start Date Job End Date Not on file Not on file Not on file Not on file documented as of this encounter Plan of Treatment Not on file documented as of this encounter Visit Diagnoses Diagnosis Follow-up examination of abnormal mammogram Abnormal mammogram, unspecified documented in this encounter Care Teams Rewriter Relationship Specialty Start Date End Date Gus Booker MD [address] [facility] [place] [address] PCP - General Family Practice 03/19/15 documented as of this encounter
--- OUTSIDE RECORDS SUMMARY | 2025-03-09 08:08 | XMS_ITS | Encounter Summary ---
Author Organization [facility] Address [address] [place] [address] Care Team Providers Care Roadability Machine Operator Name Role Phone Gus Booker MD Primary Care Provider [phone] Encounter Details Date Type Department Care Team (Late st Contact Info) Description 02/10/2007 Outpatient Historical [facility] [address] [place] [phone] Macho Jones MD NO ADDRESS ON FILE Social History Tobacco Use Types Packs/Day Years Used Date Smoking Tobacco: Never Assessed Comments Unknown Sex and Gender Information Value Date Recorded Sex Assigned at Not on file Legal Sex Female 3:03 AM DOG WARDEN Gender Identity Not on file Sexual Orientation Not on file documented as of this encounter Plan of Treatment Not on file documented as of this encounter Visit Diagnoses Not on filedocumented in this encounter Care Teams Roadability Machine Operator Relationship Specialty [place] [address] [place] [phone] PCP - General Family Practice 03/19/15 documented as of this encounter
--- OUTSIDE RECORDS SUMMARY | 2025-03-09 08:08 | XMS_ITS | Encounter Summary ---
Author Organization [facility] Address [address] [place] [address] Care Team Providers Care Court Security Officer Name Role Phone Gus Booker MD Primary Care Provider [phone] Reason for Referral * Radiology Services (Routine) - Closed Specialty Diagnoses / Procedures Referred By Contac t Referred To Contact Radiology Diagnoses Visit for screening mammogram Procedures MAMMO SCRN BILAT 3D NUPUR W OR WO CAD CHG SCREENING MAMMOGRAPHY BI 2-VIEW BREAST INC CAD CHG SCREENING DIGITAL BREAST TOMOSYNTHESIS BI Gus Booker MD [address] [facility] [place] [address] Phone: tel: fax: [facility] [address] [address] Phone: tel: fax: Referral ID Status Reason Start Date Expiration Date Visits Re quested Visits Authorized [id number] Closed 03/18/2020 04/18/2021 1 1 ND MANAGER Encounter Details Date Type Department Care Team (Latest Contact Info) Description 03/18/2020 Ancillary Orders [facility] Pre-Registration [place] CALL TO MAKE APPOINTMENT ONLY [address] [place] [address] Gus Booker MD [address] [place] [address] Visit for screening mammogram Social History Tobacco Use Types Packs/Day Years Used Date Smoking Tobacco: Never Smokeless Tobacco: Never Alcohol Use Standard Drinks/Week Comments No 0 (1 standard drink = 0.6 oz pur e alcohol) Comments No Sex and Gender Information Value Date Recorded Sex Assigned at Not on file Legal Sex Female 3:03 AM DEMAND MANAGER Gender Identity Not on file Sexual [...] mammogram documented in this encounter Care Teams Court Security Officer Relationship Specialty Start Date End Date Gus Booker MD [address] [place] [phone] PCP - General Family Practice 03/19/15 documented as of this encounter
--- OUTSIDE RECORDS SUMMARY | 2025-03-09 08:08 | XMS_ITS | Encounter Summary ---
Author Organization 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
--- OUTSIDE RECORDS SUMMARY | 2025-03-09 08:08 | XMS_ITS | Encounter Summary ---
Author Organization [facility] Address [address] [place] [address] Care Team Providers Care Insurance Biller Name Role Phone Gus Booker MD Primary Care Provider [phone] Encounter Details Date Type Department Care Team (Latest Contact Info) Description 01/21/2009 Ancillary Orders [facility] Cardiovascular Services [address] 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
--- OUTSIDE RECORDS SUMMARY | 2025-03-09 08:08 | XMS_ITS | Encounter Summary ---
Author Organization [facility] Address [address] [place] [address] Care Team Providers Care Rural Service Engineer Name Role Phone Gus Booker MD Primary Care Provider [phone] Encounter Details Date Type Department Care Team (Late st Contact Info) Description 04/25/2008 Outpatient Historical [facility] Specialty Nursing Services [facility] [address] [place] [phone] Macho Jones MD NO ADDRESS ON FILE Social History Tobacco Use Types Packs/Day Years Used Date Smoking Tobacco: Never Assessed Comments No Sex and Gender Information Value Date Recorded Sex Assigned at Not on file Legal Sex Female 3:03 AM WEIGHT LOSS COUNSELOR Gender Identity Not on file Sexual Orientation Not on file documented as of this encounter Plan of Treatment Not on file documented as of this encounter Visit Diagnoses Not on filedocumented in this encounter Care Teams Rural Service Engineer Relationship Specialty Start Date End Date Gus Booker MD [address] [place] [address] PCP - General Family Practice 03/19/15 documented as of this encounter
--- OUTSIDE RECORDS SUMMARY | 2025-03-09 08:08 | XMS_ITS | Encounter Summary ---
Author Organization [facility] Address [address] [place] [address] Care Team Providers Care Awnings Mechanic Name Role Phone Gus Booker MD Primary Care Provider [phone] Reason for Referral * Outpatient Services (Routine) - Closed Specialty Diagnoses / Procedures Referred By Contac t Referred To Contact Radiology Diagnoses Abnormal findings on diagnostic imaging of breast Procedures MAMMO POST US/STEREO GUIDED PROCEDURE LT Gus Booker MD [address] [place] [address] Phone: tel: fax: [facility] [address] [address] Phone: tel: fax: Referral ID Status Reason Start Date Expiration Date Visits Re quested Visits Authorized [id number] Closed 11/17/2016 12/18/2017 1 1 * Outpatient Services (Routine) - Closed Specialty Diagnoses / Procedures Referred By Contac t Referred To Contact Radiology Diagnoses Abnormal findings on diagnostic imaging of breast Procedures MAMMO STEREOTACTIC BREAST BX LT Gus Booker MD [address] [place] [address] Phone: tel: fax: [facility] [address] [facility] [address] [place] [address] Phone: tel: fax: Referral ID Status Reason Start Date Expiration Date Visits Re quested Visits Authorized [id number] Closed 11/17/2016 12/18/2017 1 1 Encounter Details Date Type Department Care Team (Late st Contact Info) Description 11/17/2016 Ancillary Orders [facility] [address] [facility] [address] [place] [address] Gus Booker MD [address] [place] [address] Abnormal findings on diagnostic imaging of breast Social History Tobacco Use Types Packs/Day Years Used Date Smoking Tobacco: Never Smokeless Tobacco: Never Alcohol Use Standard Drinks/Week Comments No 0 (1 standard drink = 0.6 oz pur e alcohol) Comments No Sex and Gender Information Value Date Recorded Sex Assigned at Not on file Legal Sex Female 3:03 AM CLUB LICENSEE Gender Identity Not on file Sexual Orientation [...] Diagnostic left breast mammogram in six months. [id number] Narrative 11/30/2016 12:44 PM CDT MAMMO STEREOTACTIC [...] no calcifications present. CLIP PLACEMENT: A [place] marker was placed at the biopsy site. The probe was removed. Hemostasis was achieved. Skin was closed and dressed in the usual fashion. The patient tolerated the procedure well. ASSESSMENT: Pathology pending. [id number] Procedure Note Giovany Huber MD - 11/30/2016 [...] no calcifications present. CLIP PLACEMENT: A [place] marker was placed at the biopsy site. The probe was removed. Hemostasis was achieved. Skin was closed and dressed in the usual fashion. The patient tolerated the procedure well. ASSESSMENT: Pathology pending. [id number] us External Provider [facility] MAMMO ORDERABLES Edited Re sult - Final [...] Diagnostic left breast mammogram in six months. [id number] Narrative 11/30/2016 12:44 PM CDT MAMMO STEREOTACTIC [...] no calcifications present. CLIP PLACEMENT: A [place] marker was placed at the biopsy site. The probe was removed. Hemostasis was achieved. Skin was closed and dressed in the usual fashion. The patient tolerated the procedure well. ASSESSMENT: Pathology pending. [id number] Procedure Note Giovany Huber MD - 11/30/2016 [...] no calcifications present. CLIP PLACEMENT: A [place] marker was placed at the biopsy site. The probe was removed. Hemostasis was achieved. Skin was closed and dressed in the usual fashion. The patient tolerated the procedure well. ASSESSMENT: Pathology pending. [id number] External Provider [facility] MAMMO ORDERABLES Edited Re sult - Final [...] breast documented in this encounter Care Teams Awnings Mechanic Relationship Specialty Start Date End Date Gus Booker MD [address] [place] [phone] PCP - General Family Practice 03/19/15 documented as of this encounter
--- OUTSIDE RECORDS SUMMARY | 2025-03-09 08:08 | XMS_ITS | Encounter Summary ---
Author Organization [facility] Address [address] [place] [address] Care Team Providers Care Field Service Technician Name Role Phone Gus Booker MD Primary Care Provider [phone] Encounter Details Date Type Department Care Team (Latest Contact Info) Description 02/19/2009 Ancillary Orders [facility] [address] [facility] [address] [place] [address] Rosa Jack MD NO ADDRESS ON FILE Other (Abnormal) Findings on Radiological Examination of Breast Social History Tobacco Use Types Packs/Day Years Used Date Smoking Tobacco: Never Assessed Comments No Sex and Gender Information Value Date Recorded Sex Assigned at Not on file Legal 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 Female 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 Gender Identity Not on file Sexual Orientation Not on file documented as of this encounter Plan of Treatment Not on file documented as of this encounter Results * MAMMO BREAST US RT (02/19/2009 2:41 PM LIEUTENANT FIRE FIGHTER) Anatomical Region Laterality Modality Breast Right Ultrasound Narrative 02/19/2009 3:57 PM LIEUTENANT FIRE FIGHTER Ultrasound report is included in the diagnostic [...] documented in this encounter Care Teams Field Service Technician Relationship Specialty Start Date End Date Gus Booker MD [address] [place] [phone] PCP - General Family Practice 03/19/15 documented as of this encounter
--- OUTSIDE RECORDS SUMMARY | 2025-03-09 08:08 | XMS_ITS | Encounter Summary ---
Author Organization [facility] Address [address] [place] [address] Care Team Providers Care Engraver Jewelry Name Role Phone Gus Booker MD Primary Care Provider [phone] Encounter Details Date Type Department Care Team (Late st Contact Info) Description 05/01/2007 Outpatient Historical [facility] Endocrinology-[facility] [address] [place] [address] Macho Jones MD NO ADDRESS ON FILE Social History Tobacco Use Types Packs/Day Years Used Date Smoking Tobacco: Never Assessed Comments No Sex and Gender Information Value Date Recorded Sex Assigned at Not on file Legal Sex Female 3:03 AM CORRECTIONS COUNSELOR Gender Identity Not on file Sexual Orientation Not on file documented as of this encounter Plan of Treatment Not on file documented as of this encounter Visit Diagnoses Not on filedocumented in this encounter Care Teams Engraver Jewelry Relationship Specialty Start Date End Date Gus Booker MD [address] [place] [address] PCP - General Family Practice 03/19/15 documented as of this encounter
--- OUTSIDE RECORDS SUMMARY | 2025-03-09 08:08 | XMS_ITS | Encounter Summary ---
Author Organization [facility] Address [address] [place] [address] Care Team Providers Care Scale Mechanic Name Role Phone Gus Booker MD Primary Care Provider [phone] Encounter Details Date Type Department Care Team (Late st Contact Info) Description 04/03/2015 Ancillary Orders [facility] Pre-Registration [place] CALL TO MAKE APPOINTMENT ONLY [address] [place] [address] Gus Booker MD [address] [place] [address] Social History Tobacco Use Types Packs/Day Years Used Date Smoking Tobacco: Never Smokeless Tobacco: Never Alcohol Use Standard Drinks/Week Comments No 0 (1 standard drink = 0.6 oz pur e alcohol) Comments No Sex and Gender Information Value Date Recorded Sex Assigned at Not on file Legal Sex Female 3:03 AM MEDICAL ACCOUNTING CLERK Gender Identity Not on file Sexual Orientation Not on file Occupation Industry Job Start Date Job End Date Not on file Not on file Not on file Not on file documented as of this encounter Plan of Treatment Not on file documented as of this encounter Visit Diagnoses Not on filedocumented in this encounter Care Teams Scale Mechanic Relationship Specialty Start Date End Date Gus Booker MD [address] [place] [address] PCP - General Family Practice 03/19/15 documented as of this encounter
--- OUTSIDE RECORDS SUMMARY | 2025-03-09 08:08 | XMS_ITS | Encounter Summary ---
Author Organization [facility] Address [address] [place] [address] Care Team Providers Care Revenue Agent Name Role Phone Gus Booker MD Primary Care Provider [phone] Encounter Details Date Type Department Care Team (Late st Contact Info) Description 11/10/2011 Ancillary Orders [facility] Orthopedics- [address] [place] [address] Ajith Vann MD [address] [place] [phone] Pain Social History Tobacco Use Types Packs/Day Years Used Date Smoking Tobacco: Never Smokeless Tobacco: Never Alcohol Use Standard Drinks/Week Comments No 0 (1 standard drink = 0.6 oz pur e alcohol) Comments No Sex and Gender Information Value Date Recorded Sex Assigned at Not on file Legal Sex Female 3:03 AM MEDICAL RECORDS COORDINATOR Gender Identity Not on file Sexual [...] pain documented in this encounter Care Teams Revenue Agent Relationship Specialty Start Date End Date Gus Booker MD [address] [place] [phone] PCP - General Family Practice 03/19/15 documented as of this encounter
--- OUTSIDE RECORDS SUMMARY | 2025-03-09 08:08 | XMS_ITS | Clinical Summary ---
Author Organization [facility] Address [address] 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 DEVELOPER Gender Identity Not on file Sexual Orientation Not on file Occupation Industry Job Start Date Job End Date Not on file Not on file Not on file Not on file Last Filed Vital Signs Vital Sign Reading Time Taken Comments Blood Pressure 122/84 10/02/2020 11:02 AM CDT Pulse 93 10/02/2020 11:02 AM CDT Temperature 36.2 C (97.1 F) 05/12/2018 8:51 AM PEOPLESOFT CRM DEVELOPER Respiratory Rate 18 08/01/2018 3:29 PM CDT [...] Insurance [employer] Medicare Part D [facility] Advance Directives For more information, please contact: [phone] * Full Code (Latest Code Status on [...] 7:11 AM 06/28/2011 10:56 AM Care Teams Telephone Recorder Relationship Specialty Start Date End Date Gus Booker MD [address] [place] [phone] PCP - General Family Practice 03/19/15
--- OUTSIDE RECORDS SUMMARY | 2025-03-09 08:08 | XMS_ITS | Encounter Summary ---
Author Organization [facility] Address [address] [place] [address] Care Team Providers Care Campus Chaplain Name Role Phone Gus Booker MD Primary Care Provider [phone] Encounter Details Date Type Department Care Team (Latest Contact Info) Description 08/09/2005 Outpatient Historical [facility] Spec [facility] [place] 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
--- OUTSIDE RECORDS SUMMARY | 2025-03-09 08:08 | XMS_ITS | Encounter Summary ---
Author Organization [facility] Address [address] [place] [address] Care Team Providers Care Booky Name Role Phone Gus Booker MD Primary Care Provider [phone] Encounter Details Date Type Department Care Team [...] on file Legal Sex Female 3:03 AM GENERAL HELPER Gender Identity Not on file Sexual Orientation [...] classified documented in this encounter Care Teams Booky Relationship Specialty [place] [address] [place] [phone] PCP - General Family Practice 03/19/15 documented as of this encounter
--- OUTSIDE RECORDS SUMMARY | 2025-03-09 08:08 | XMS_ITS | Encounter Summary ---
Author Organization [facility] Address [address] [place] [address] Care Team Providers Care Roadability Machine Operator Name Role Phone Gus Booker MD Primary Care Provider [phone] Reason for Referral * Outpatient Services (Routine) - Closed Specialty Diagnoses / Procedures Referred By Contac t Referred To Contact Diagnoses Other screening mammogram Procedures MAMMO DIGITAL SCREEN BILAT Gus Booker MD [address] [place] [address] Phone: tel: fax: [facility] Pre-Registration [place] CALL TO MAKE APPOINTMENT ONLY [address] [place] [address] Phone: tel: fax: Referral ID Status Reason Start Date Expiration Date V isits Requested Visits Authorized [id number] Closed F [facility] TO SCHEDULE (SGF) 08/05/2014 09/05/2015 1 1 Encounter Details Date Type Department Care Team (Latest Contact Info) Description 08/05/2014 Ancillary Orders [facility] Pre-Registration [place] CALL TO MAKE APPOINTMENT ONLY [address] [place] [address] Gus Booker MD [address] [place] [address] Other screening mammogram (Primary Dx) Social History Tobacco Use Types Packs/Day Years Used Date Smoking Tobacco: Never Smokeless Tobacco: Never Alcohol Use Standard Drinks/Week Comments No 0 (1 standard drink = 0.6 oz pur e alcohol) Comments No Sex and Gender Information Value Date Recorded Sex Assigned at Not on file Legal Sex Female 3:03 AM MANAGER FAMILY Gender Identity Not on file Sexual Orientation [...] findings since the prior mammogram(s). External Provider [facility] MAMMO ORDERABLES Final Res ult documented in this encounter Visit Diagnoses Diagnosis Other screening mammogram- Primary Other screening mammogram documented in this encounter Care Teams Roadability Machine Operator Relationship Specialty Start Date End Date Gus Booker MD [address] [place] [phone] PCP - General Family Practice 03/19/15 documented as of this encounter
--- OUTSIDE RECORDS SUMMARY | 2025-03-09 08:08 | XMS_ITS | Encounter Summary ---
Author Organization [facility] Address [address] [place] [address] Care Team Providers Care Circulation Assistant Name Role Phone Gus Booker MD Primary Care Provider [phone] Encounter Details Date Type Department Care Team (Latest Contact Info) Description 04/21/2007 Outpatient Historical [facility] Imaging Services-[place] [facility] [address] [place] [address] Macho Jonse MD NO ADDRESS ON FILE Unspecified Hypothyroidism Social History Tobacco Use Types Packs/Day Years Used Date Smoking Tobacco: Never Assessed Comments Unknown Sex and Gender Information Value Date Recorded Sex Assigned at Not on file Legal Sex Female 3:03 AM ANIMAL ASSISTANT Gender Identity Not on file Sexual Orientation Not on file documented as of this encounter Plan of Treatment Not on file documented as of this encounter Procedures Procedure Name Priority Date/Time Associated Diagnosis Comments US HEAD NECK TISSUES Routine 04/21/2007 1:20 PM ANIMAL ASSISTANT documented in this encounter Results * US NECK TISSUES (04/21/2007 1:20 PM ANIMAL ASSISTANT) Anatomical Region Laterality Modality Head Other 04/21/2007 1:20 PM ANIMAL ASSISTANT Narrative 04/21/2007 1:20 PM ANIMAL ASSISTANT Exam: US-NeckDate/Time of Exam: Apr 24, 2007 [...] hypothyroidism documented in this encounter Care Teams Circulation Assistant Relationship Specialty Start Date End Date Gus Booker MD [address] [place] [phone] PCP - General Family Practice 03/19/15 documented as of this encounter
--- OUTSIDE RECORDS SUMMARY | 2025-03-09 08:08 | XMS_ITS | Encounter Summary ---
Author Organization [facility] Address [address] [place] [address] Care Team Providers Care Loan Service Officer Name Role Phone Gus Booker MD Primary Care Provider [phone] Reason for Referral * Outpatient Services (Routine) - Closed Specialty Diagnoses / Procedures Referred By Destiney johnson Referred To Contact Diagnoses Other screening mammogram Procedures MAMMO DIGITAL SCREEN BILAT Rosa Jack MD NO ADDRESS ON FILE [facility] Pre-Registration [place] CALL TO MAKE APPOINTMENT ONLY [address] [place] [address] Phone: tel: fax: Referral ID Status Reason Start Date Expiration Date V isits Requested Visits Authorized [id number] Closed F [facility] TO SCHEDULE (F) 06/27/2013 07/28/2014 1 1 Encounter Details Date Type Department Care Team (Latest Contact Info) Description 06/27/2013 Ancillary Orders [facility] [place] CALL TO MAKE APPOINTMENT ONLY [address] [place] [address] Rosa Jack MD NO ADDRESS [...] on file Legal Sex Female 3:03 AM CODE ENFORCEMENT INSPECTOR Gender Identity Not on file Sexual [...] mammogram documented in this encounter Care Teams Loan Service Officer Relationship Specialty Start Date End Date Gus Booker MD [address] [place] [phone] PCP - General Family Practice 03/19/15 documented as of this encounter
--- OUTSIDE RECORDS SUMMARY | 2025-03-09 08:08 | XMS_ITS | Encounter Summary ---
Author Organization [facility] Address [address] [place] [address] Care Team Providers Care Rock Star Name Role Phone Gus Booker MD Primary Care Provider [phone] Encounter Details Date Type Department Care Team (Late st Contact Info) Description 08/31/2018 Ancillary Orders [facility] [address] [place] [address] Joby Burnett MD [address] [place] [phone] Right hip pain Social History Tobacco Use Types Packs/Day Years Used Date Smoking Tobacco: Never Smokeless Tobacco: Never Alcohol Use Standard Drinks/Week Comments No 0 (1 standard drink = 0.6 oz pur e alcohol) Comments No Sex and Gender Information Value Date Recorded Sex Assigned at Not on file Legal Sex Female 3:03 AM PUBLIC POLICY COORDINATOR Gender Identity Not on file Sexual [...] thigh documented in this encounter Care Teams Rock Star Relationship Specialty Start Date End Date Gus Booker MD [address] [place] [address] PCP - General Family Practice 03/19/15 documented as of this encounter
--- OUTSIDE RECORDS SUMMARY | 2025-03-09 08:08 | XMS_ITS | Encounter Summary ---
Author Organization [facility] Address [address] [place] [address] Care Team Providers Care Manager Materials Management Name Role Phone Gus Booker MD Primary Care Provider Reason for Referral * Outpatient Services (Routine) - Closed Specialty Diagnoses / Procedures Referred By Contsharon t Referred To Contact Diagnoses Inconclusive mammogram Procedures MAMMO BREAST US LEFT LTD Gus Booker MD [address] [place] [address] Phone: tel: fax: [employer] Pre-Registration [place] CALL TO MAKE APPOINTMENT ONLY [address] [place] [address] Phone: tel: fax: Referral ID Status Reason Start Date Expiration Date Visits Re quested Visits Authorized [id number] Closed 11/15/2016 12/16/2017 1 1 * Outpatient Services (Routine) - Closed Specialty Diagnoses / Procedures Referred By Contac t Referred To Contact Diagnoses Inconclusive mammogram Procedures MAMMO DIAGNOSTIC UNI LEFT W OR WO CAD Gus Booker MD [address] [place] [address] Phone: tel: fax: [employer] Pre-Registration [place] CALL TO MAKE APPOINTMENT ONLY [address] [place] [address] Phone: tel: fax: Referral ID Status Reason Start Date Expiration Date Visits Re quested Visits Authorized [id number] Closed 11/15/2016 12/16/2017 1 1 Encounter Details Date Type Department Care Team (Latest Contact Info) Description 11/15/[address] 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 The previously identified lateral left [...] The patient was given a result/recommendation letter. [id number] Procedure Note Giovany Huber MD - 11/17/2016 MAMMO DIAGNOSTIC UNI LEFT W OR WO CAD, MAMMO BREAST US LEFT LTD INDICATION FOR EXAMINATION: Inconclusive mammogram COMPARISONS: Mammogram dated 11/12/2016, 10/29/2015, 08/29/2014, 08/23/2013, 07/13/2012, 05/13/2011, 04/14/2010, 02/19/2009, 02/06/2009, 02/06/2008, 01/10/2007. BREAST COMPOSITION: Scattered areas of fibroglandular density. FINDINGS: This digital mammogram was also analyzed by the Computer Aided Detection System (CAD), Tidalwave Trader ImageChecker, Version 8.3. The previously identified lateral [...] The patient was given a result/recommendation letter. [id number] us External Provider [facility] MAMMO ORDERABLES Final Res ult * [...] by the Computer Aided Detection System (CAD), Tidalwave Trader ImageMentiNovacker, Version 8.3. The previously identified lateral left [...] The patient was given a result/recommendation letter. [id number] Procedure Note Giovany Huber MD - 11/17/2016 MAMMO DIAGNOSTIC UNI LEFT W OR WO CAD, MAMMO BREAST US LEFT LTD INDICATION FOR EXAMINATION: Inconclusive mammogram COMPARISONS: Mammogram dated 11/12/2016, 10/29/2015, 08/29/2014, 08/23/2013, 07/13/2012, 05/13/2011, 04/14/2010, 02/19/2009, 02/06/2009, 02/06/2008, 01/10/2007. BREAST COMPOSITION: Scattered areas of fibroglandular density. FINDINGS: This digital mammogram was also analyzed by the Computer Aided Detection System (CAD), Lagoacker, Version 8.3. The previously identified lateral left [...] The patient was given a result/recommendation letter. [id number] us External Provider [facility] MAMMO ORDERABLES Final Res ult documented in this encounter Visit Diagnoses Diagnosis Inconclusive mammogram Inconclusive mammogram Inconclusive mammogram documented in this encounter Care Teams Manager Materials Management Relationship Specialty Start Date End Date Gus Booker MD [address] [place] [address] PCP - General Family Practice 03/19/15 documented as of this encounter
--- OUTSIDE RECORDS SUMMARY | 2025-03-09 08:08 | XMS_ITS | Encounter Summary ---
Author Organization [facility] Address [address] [place] [address] Care Team Providers Care Station Supervisor Name Role Phone Gus Booker MD Primary Care Provider [phone] Encounter Details Date Type Department Care Team (Latest Contact Info) Description 08/17/2005 Outpatient Historical [facility] Cardiac Research Geologist [address] [place] [address] Joby Peña MD NO ADDRESS ON FILE Unspecified Chest Pain (Primary Dx) Social History Tobacco Use Types Packs/Day Years Used Date Smoking Tobacco: Never Assessed Comments Unknown Sex and Gender Information Value Date Recorded Sex Assigned at Not on file 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 Gender Identity Not on file Sexual [...] Goal INR 3.0; range 2.5 - 3.5 POST-SD Goal INR 2.5; range 2.0 - 3.0 [...] ORDERABLES Franca l Result Performing Organization Address [facility] Co de Phone Number INTERFACE [...] CHEMISTRY ORDERABLES Final Result Performing Organization Address [facility] Co de Phone Number INTERFACE SYSTEM Refer to clinic/hospital department documented in this encounter Visit Diagnoses Diagnosis Chest pain, unspecified- Primary documented in this encounter Care Teams Station Supervisor Relationship Specialty Start Date End Date Gus Booker MD [address] [place] [phone] PCP - General Family Practice 03/19/15 documented as of this encounter
--- OUTSIDE RECORDS SUMMARY | 2025-03-09 08:08 | XMS_ITS | Encounter Summary ---
Author Organization [facility] Address [address] [place] [address] Care Team Providers Care Faculty I On Call Medical Assistant Name Role Phone Gus Booker MD Primary Care Provider [phone] Reason for Referral * Outpatient Services (Routine) - Closed Specialty Diagnoses / Procedures Referred By Contac t Referred To Contact Radiology Diagnoses Abnormal mammogram Procedures MAMMO DIAGNOSTIC BILATERAL W OR WO CAD Gus Booker MD [address] [place] [address] Phone: tel: fax: [facility] [address] [facility] [address] [place] [address] Phone: tel: fax: Referral ID Status Reason Start Date Expiration Date V isits Requested Visits Authorized [id number] Closed SGF MC TO SCHEDULE (SGF) 10/26/2017 11/26/2018 1 1 Encounter Details Date Type Department Care Team (Late st Contact Info) Description 10/26/2017 Ancillary Orders [facility] Pre-Registration [place] CALL TO MAKE APPOINTMENT ONLY [address] [place] [address] Gus Booker MD [address] [place] [address] Abnormal mammogram Social History Tobacco Use Types Packs/Day Years Used Date Smoking Tobacco: Never Smokeless Tobacco: Never Alcohol Use Standard Drinks/Week Comments No 0 (1 standard drink = 0.6 oz pur e alcohol) Comments No Sex and Gender Information Value Date Recorded Sex Assigned at Not on file 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 Patient received a result/recommendation letter. [id number] Narrative 01/03/2018 3:48 PM CDT Bilateral Digital [...] by the Computer Aided Detection System (CAD), More Design ImageChecker, Version 8.3. us External Provider [facility] MAMMO ORDERABLES Final Res ult documented in this encounter Visit Diagnoses Diagnosis Abnormal mammogram Abnormal mammogram, unspecified Abnormal mammogram Abnormal mammogram, unspecified documented in this encounter Care Teams Faculty I On Call Medical Assistant Relationship Specialty Start Date End Date Gus Booker MD [address] [place] [phone] PCP - General Family Practice 03/19/15 documented as of this encounter
--- OUTSIDE RECORDS SUMMARY | 2025-03-09 08:08 | XMS_ITS | Encounter Summary ---
Author Organization [facility] Address [address] [place] [address] Care Team Providers Care Lap Welder Name Role Phone Gus Booker MD Primary Care Provider [phone] Reason for Referral * Outpatient Services (Routine) - Closed Specialty Diagnoses / Procedures Referred By Destiney johnson Referred To Contact Diagnoses Other screening mammogram Procedures MAMMO DIGITAL SCREEN BILAT Rosa Jack MD NO ADDRESS ON FILE [place] Pre-Registration [place] CALL TO MAKE APPOINTMENT ONLY [address] [place] [address] Phone: tel: fax: Referral ID Status Reason Start Date Expiration Date V isits Requested Visits Authorized [id number] Closed F MC TO SCHEDULE (SGF) 05/04/2012 06/04/2013 1 1 BAIT PICKER Encounter Details Date Type Department Care Team (Latest Contact Info) Description 05/04/2012 Ancillary Orders [facility] CALL TO MAKE APPOINTMENT ONLY [address] [place] [address] Rosa Jack MD NO ADDRESS [...] file 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
--- OUTSIDE RECORDS SUMMARY | 2025-03-09 08:08 | XMS_ITS | Encounter Summary ---
Author Organization [facility] Address [address] [place] [address] Care Team Providers Care Licensed Prosthetist Name Role Phone Gus Booker MD Primary Care Provider [phone] Reason for Referral * Outpatient Services (Routine) - Closed Specialty Diagnoses / Procedures Referred By Contac t Referred To Contact Diagnoses Papillary carcinoma of thyroid (CMS/HCC) Procedures CT CHEST W CONTRAST Macho Jones MD [facility] Pre-Registration [place] CALL TO MAKE APPOINTMENT ONLY [address] [place] [address] Phone: tel: fax: Referral ID Status Reason Start Date Expiration Date V isits Requested Visits Authorized [id number] Closed F MC TO SCHEDULE (SGF) 12/30/2016 01/30/2018 1 1 Encounter Details Date Type Department Care Team (Late st Contact Info) Description 12/30/[address] 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 [id number] Narrative Procedure Note Mik Weber, DO - [...] IMPRESSION: No evidence of thoracic metastatic disease. [id number] ORDERABLES Final Result documented in this encounter Visit Diagnoses Diagnosis Papillary carcinoma of thyroid (CMS/HCC) Malignant neoplasm of thyroid gland Papillary carcinoma of thyroid (CMS/HCC) Malignant neoplasm of thyroid gland documented in this encounter Care Teams Licensed Prosthetist Relationship Specialty Start Date End Date Gus Booker MD [address] [place] [phone] PCP - General Family Practice 03/19/15 documented as of this encounter
--- OUTSIDE RECORDS SUMMARY | 2025-03-09 08:08 | XMS_ITS | Encounter Summary ---
Author Organization [facility] Address [address] [place] [address] Care Team Providers Care Chain Carrier Name Role Phone Gus Booker MD Primary Care Provider [phone] Reason for Referral * Outpatient Services (Routine) - Closed Specialty Diagnoses / Procedures Referred By Contac t Referred To Contact Radiology Diagnoses Encounter for screening mammogram for malignant neoplasm of breast Procedures MAMMO SCREEN BILAT W OR WO CAD Gus Booker MD [address] [facility] [place] [address] Phone: tel: fax: [facility] [address] [facility] [address] [place] [address] Phone: tel: fax: Referral ID Status Reason Start Date Expiration Date V isits Requested Visits Authorized [id number] Closed F MC TO SCHEDULE (SGF) 10/28/2016 11/28/2017 1 1 Encounter Details Date Type Department Care Team (Latest Contact Info) Description 10/28/2016 Ancillary Orders [facility] Pre-Registration [place] CALL TO MAKE APPOINTMENT ONLY [address] [place] [address] Gus Booker MD [address] [place] [address] Encounter for screening mammogram for malignant neoplasm of breast Social History Tobacco Use Types Packs/Day Years Used Date Smoking Tobacco: Never Smokeless Tobacco: Never Alcohol Use Standard Drinks/Week Comments No 0 (1 standard drink = 0.6 oz pur e alcohol) Comments No Sex and Gender Information Value Date Recorded Sex Assigned at Not on file 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 [id number] Narrative 11/15/2016 3:06 PM CDT Screening Mammogram [...] by the Computer Aided Detection System (CAD), Amigos [employer]igos ImageChecker, Version 8.3. us External Provider [facility] MAMMO ORDERABLES Final Res ult documented in this encounter Visit Diagnoses Diagnosis Encounter for screening mammogram for malignant neoplasm of breast Other screening mammogram Encounter for screening mammogram for malignant neoplasm of breast Other screening mammogram documented in this encounter Care Teams Chain Carrier Relationship Specialty Start Date End Date Gus Booker MD [address] [place] [phone] PCP - General Family Practice 03/19/15 documented as of this encounter
--- OUTSIDE RECORDS SUMMARY | 2025-03-09 08:08 | XMS_ITS | Encounter Summary ---
Author Organization [facility] Address [address] [place] [address] Care Team Providers Care High School Auto Repair Teacher Name Role Phone Gus Booker MD Primary Care Provider [phone] Encounter Details Date Type Department Care Team (Late st Contact Info) Description 05/16/2017 Ancillary Orders [facility] Pre-Registration [place] CALL TO MAKE APPOINTMENT ONLY [address] [place] [address] Gus Booker MD [address] [place] [address] Social History Tobacco Use Types Packs/Day Years Used Date Smoking Tobacco: Never Smokeless Tobacco: Never Alcohol Use Standard Drinks/Week Comments No 0 (1 standard drink = 0.6 oz pur e alcohol) Comments No Sex and Gender Information Value Date Recorded Sex Assigned at Not on file 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
--- OUTSIDE RECORDS SUMMARY | 2025-03-09 08:08 | XMS_ITS | Encounter Summary ---
Author Organization [facility] Address [address] [place] [address] Care Team Providers Care Rn Cardiac Rehab Name Role Phone Gus Booker MD Primary Care Provider [phone] Encounter Details Date Type Department Care Team (Latest Contact Info) Description 09/02/2005 Outpatient Historical [facility] Endocrinology-[facility] [place] [address] [place] [address] Macho Jones MD NO ADDRESS ON FILE Malig Julio Thyroid (Primary Dx) Social History Tobacco Use Types Packs/Day Years Used Date Smoking Tobacco: Never Assessed Comments Unknown Sex and Gender Information Value Date Recorded Sex Assigned at Not on file Legal Sex Female 3:[address] RECORDING MONITOR Gender Identity Not on file Sexual Orientation Not on file documented as of this encounter Plan of Treatment Not on file documented as of this encounter Visit Diagnoses Diagnosis Malig julio thyroid- Primary Malignant neoplasm of thyroid gland documented in this encounter Care Teams Rn Cardiac Rehab Relationship Specialty Start Date End Date Gus Booker MD [address] [place] [address] PCP - General Family Practice 03/19/15 documented as of this encounter
--- OUTSIDE RECORDS SUMMARY | 2025-03-09 08:08 | XMS_ITS | Encounter Summary ---
Author Organization [facility] Address [address] [place] [address] Care Team Providers Care Payroll Manager Name Role Phone Gus Booker MD Primary Care Provider [phone] Reason for Referral * Outpatient Services (Routine) - Closed Specialty Diagnoses / Procedures Referred By Contac t Referred To Contact Diagnoses Encounter for screening mammogram for malignant neoplasm of breast Procedures MAMMO DIGITAL SCREEN BILAT Gus Booker MD [address] [place] [address] Phone: tel: fax: [facility] Pre-Registration [place] CALL TO MAKE APPOINTMENT ONLY [address] [place] [address] Phone: tel: fax: Referral ID Status Reason Start Date Expiration Date V isits Requested Visits Authorized [id number] Closed SGF MC TO SCHEDULE (SGF) 08/19/2015 09/18/2016 1 1 Encounter Details Date Type Department Care Team (Latest Contact Info) Description 08/19/2015 Ancillary Orders [facility] Pre-Registration [place] CALL TO MAKE APPOINTMENT ONLY [address] [place] [address] Gus Booker MD [address] [place] [address] Encounter for screening mammogram for [...] on file Legal 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 us External Provider [facility] MAMMO ORDERABLES Final Res ult documented in this encounter Visit Diagnoses Diagnosis Encounter for screening mammogram for malignant neoplasm of breast- Primary Other screening mammogram Encounter for screening mammogram for malignant neoplasm of breast Other screening mammogram documented in this encounter Care Teams Payroll Manager Relationship Specialty [place] [address] [place] [phone] PCP - General Family Practice 03/19/15 documented as of this encounter
--- OUTSIDE RECORDS SUMMARY | 2025-03-09 08:08 | XMS_ITS | Encounter Summary ---
Author Organization [facility] Address [address] [place] [address] Care Team Providers Care Director Center Name Role Phone Gus Booker MD Primary Care Provider [phone] Encounter Details Date Type Department Care Team (Latest Contact Info) Description 08/25/2005 Outpatient Historical [facility] Gen Spec Surg [place] 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
--- OUTSIDE RECORDS SUMMARY | 2025-03-09 08:09 | XMS_ITS | Encounter Summary ---
Author Organization [facility] Address [address] [place] [address] Care Team Providers Care Content Publisher Name Role Phone Gus Booker MD Primary Care Provider [phone] Encounter Details Date Type Department Care Team (Latest Contact Info) Description 12/24/2005 Outpatient [facility] [address] [place] [address] Rosa Jack MD NO ADDRESS ON FILE Other Screening Mammogram (Primary Dx) Social History Tobacco Use Types Packs/Day Years Used Date Smoking Tobacco: Never Assessed Comments Unknown Sex and Gender Information Value Date Recorded Sex Assigned at Not on file Legal 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
--- OUTSIDE RECORDS SUMMARY | 2025-03-09 08:09 | XMS_ITS | Encounter Summary ---
Author Organization [facility] Address [address] [place] [address] Care Team Providers Care Banquet Pilot Name Role Phone Gus Booker MD Primary Care Provider [phone] Encounter Details Date Type Department Care Team (Latest Contact Info) Description 11/30/2006 Outpatient Historical [facility] [address] [place] [address] Macho Jones MD NO ADDRESS ON FILE Malignant Neoplasm of Thyroid Gland (CMS/HCC) (Primary Dx) Social History Tobacco Use Types Packs/Day Years Used Date Smoking Tobacco: Never Assessed Comments Unknown Sex and Gender Information Value Date Recorded Sex Assigned at Not on file 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 Date Signed: 12/01/06 Macho Jones MD [place] ORDERABLES Final Result documented in this encounter Visit Diagnoses Diagnosis Malignant neoplasm of thyroid gland (CMS/HCC)- Primary Malignant neoplasm of thyroid gland documented in this encounter Care Teams Banquet Pilot Relationship Specialty Start Date End Date Gus Booker MD [address] [place] [phone] PCP - General Family Practice 03/19/15 documented as of this encounter
--- OUTSIDE RECORDS SUMMARY | 2025-03-09 08:09 | XMS_ITS | Encounter Summary ---
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) Social History Tobacco Use Types Packs/Day Years Used Date Smoking Tobacco: Never Assessed Comments Unknown Sex and Gender Information Value Date Recorded Sex Assigned at Not on file Legal Sex Female 3: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
--- OUTSIDE RECORDS SUMMARY | 2025-03-09 08:09 | XMS_ITS | Encounter Summary ---
Author Organization [facility] Address [address] [place] [address] Care Team Providers Care Application Support Engineer Name Role Phone Gus Booker MD Primary Care Provider [phone] Encounter Details Date Type Department Care Team (Late st Contact Info) Description 02/06/2009 Ancillary Orders [facility] [address] [facility] [address] [place] [address] Rosa Jack MD NO ADDRESS ON FILE Other Screening Mammogram Social History Tobacco Use Types Packs/Day Years Used Date Smoking Tobacco: Never Assessed Comments No Sex and Gender Information Value Date Recorded Sex Assigned at Not on file Legal Sex Female 3: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
--- OUTSIDE RECORDS SUMMARY | 2025-03-09 08:09 | XMS_ITS | Encounter Summary ---
Author Organization [facility] Address [address] [place] [address] Care Team Providers Care Spine Supervisor Name Role Phone Gus Booker MD Primary Care Provider [phone] Encounter Details Date Type Department Care Team (Latest Contact Info) Description 12/30/2005 Outpatient Historical [facility] Roas Jack MD NO ADDRESS ON FILE Abnormal Mammogram, Unspecified (Primary Dx) Social History Tobacco Use Types Packs/Day Years Used Date Smoking Tobacco: Never Assessed Comments Unknown Sex and Gender Information Value Date Recorded Sex Assigned at Not on file Legal Sex Female 3:03 AM HOGSHEAD SALVAGE Gender Identity Not on file Sexual Orientation Not on file documented as of this encounter Plan of Treatment Not on file documented as of this encounter Visit Diagnoses Diagnosis Abnormal mammogram, unspecified- Primary documented in this encounter Care Teams Spine Supervisor Relationship Specialty [place] [address] [place] [phone] PCP - General Family Practice 03/19/15 documented as of this encounter
--- OUTSIDE RECORDS SUMMARY | 2025-03-09 08:09 | XMS_ITS | Encounter Summary ---
Author Organization [facility] Address [address] [place] [address] Care Team Providers Care Corporate Quality Engineer Name Role Phone Gus Booker MD Primary Care Provider [phone] Encounter Details Date Type Department Care Team (Latest Contact Info) Description 12/30/2005 Outpatient Historical [facility] [address] [facility] [address] [place] [address] Willa Colon MD NO ADDRESS ON FILE Other Sign and Symptom in Breast (Primary Dx) Social History Tobacco Use Types Packs/Day Years Used Date Smoking Tobacco: Never Assessed Comments Unknown Sex and Gender Information Value Date Recorded Sex Assigned at Not on file Legal Sex Female 3:03 AM 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
--- OUTSIDE RECORDS SUMMARY | 2025-03-09 08:09 | XMS_ITS | Encounter Summary ---
Author Organization [facility] Address [address] [place] [address] Care Team Providers Care Meat Stuffer Name Role Phone Gus Booker MD Primary Care Provider [phone] Encounter Details Date Type Department Care Team (Latest Contact Info) Description 05/23/2006 Outpatient Historical [facility] Endocrinology-[place] Rip [address] [place] [address] Macho Jones MD NO ADDRESS ON FILE Malig Julio Thyroid (Primary Dx); Postsurgical Hypothyroidism Social History Tobacco Use Types Packs/Day Years Used Date Smoking Tobacco: Never Assessed Comments Unknown Sex and Gender Information Value Date Recorded Sex Assigned at Not on file Legal Sex Female 3:03 AM CERTIFIED PERSONAL FINANCE COUNSELOR Gender Identity Not on file Sexual Orientation Not on file documented as of this encounter Plan of Treatment Not on file documented as of this encounter Visit Diagnoses Diagnosis Malig julio thyroid- Primary Malignant neoplasm of thyroid gland Postsurgical hypothyroidism documented in this encounter Care Teams Meat Stuffer Relationship Specialty Start Date End Date Gus Booker MD [address] [place] [phone] PCP - General Family Practice 03/19/15 documented as of this encounter
--- OUTSIDE RECORDS SUMMARY | 2025-03-09 08:09 | XMS_ITS | Encounter Summary ---
Author Organization [facility] Address [address] [place] [address] Care Team Providers Care In File Operator Name Role Phone Gus Booker MD Primary Care Provider [phone] Encounter Details Date Type Department Care Team (Latest Contact Info) Description 11/28/2006 Outpatient Historical [facility] [address] [place] [address] Macho Jones MD NO ADDRESS ON FILE Personal History of Allergy to Penicillin (Primary Dx) Social History Tobacco Use Types Packs/Day Years Used Date Smoking Tobacco: Never Assessed Comments Unknown Sex and Gender Information Value Date Recorded Sex Assigned at Not on file Legal Sex Female 3:03 AM INSURANCE PROFESSIONAL Gender Identity Not on file Sexual Orientation [...] Primary documented in this encounter Care Teams In File Operator Relationship Specialty Start Date End Date Gus Booker MD [address] [place] [phone] PCP - General Family Practice 03/19/15 documented as of this encounter
--- OUTSIDE RECORDS SUMMARY | 2025-03-09 08:09 | XMS_ITS | Encounter Summary ---
Author Organization [facility] Address [address] [place] [address] Care Team Providers Care Tow Operator Name Role Phone Gus Booker MD Primary Care Provider [phone] Encounter Details Date Type Department Care Team (Latest Contact Info) Description 01/12/2006 Outpatient Historical [facility] Gen Spec Surg [address] [place] [address] Joby Slater MD NO ADDRESS ON FILE Malig Julio Thyroid (Primary Dx); Malig Julio Lymph-Intrathoracic (CMS/HCC) Social History Tobacco Use Types Packs/Day Years Used Date Smoking Tobacco: Never Assessed Comments Unknown Sex and Gender Information Value Date Recorded Sex Assigned at Not on file Legal Sex Female 3:03 AM TRAFFIC OPERATIONS ENGINEER Gender Identity Not on file Sexual [...] nodes documented in this encounter Care Teams Tow Operator Relationship Specialty Start Date End Date Gus Booker MD [address] [place] [phone] PCP - General Family Practice 03/19/15 documented as of this encounter
--- OUTSIDE RECORDS SUMMARY | 2025-03-09 08:09 | XMS_ITS | Encounter Summary ---
Author Organization [facility] Address [address] [place] [address] Care Team Providers Care Heavy Machinery Assembler Name Role Phone Gus Booker MD Primary Care Provider [phone] Encounter Details Date Type Department Care Team (Latest Contact Info) Description 04/04/2006 Outpatient Historical [facility] Rip [address] [place] [address] Rosa Jack MD NO ADDRESS ON FILE Unspecified Disorder of Liver (Primary Dx) Social History Tobacco Use Types Packs/Day Years Used Date Smoking Tobacco: Never Assessed Comments Unknown Sex and Gender Information Value Date Recorded Sex Assigned at Not on file Legal Sex Female 3:03 AM CLINICAL DATA COORDINATOR Gender Identity Not on file Sexual Orientation Not on file documented as of this encounter Plan of Treatment Not on file documented as of this encounter Procedures Procedure Name Priority Date/Time Associated Diagnosis Comments CT ABDOMEN PELVIS W CONTRAST Routine 04/04/2006 12:01 AM CLINICAL DATA COORDINATOR documented in this encounter Results * CT ABDOMEN PELVIS W CONTRAST (04/04/2006 12:01 AM CLINICAL DATA COORDINATOR) Anatomical Region Laterality Modality Abdomen Other 04/04/2006 12:0 1 AM CLINICAL DATA COORDINATOR Narrative 04/04/2006 12:01 AM CLINICAL DATA COORDINATOR ABDOMINAL AND PELVIC CT WITH CONTRAST 04/04/2006: [...] Primary documented in this encounter Care Teams Heavy Machinery Assembler Relationship Specialty Start Date End Date Gus Booker MD [address] [place] [phone] PCP - General Family Practice 03/19/15 documented as of this encounter
--- OUTSIDE RECORDS SUMMARY | 2025-03-09 08:09 | XMS_ITS | Encounter Summary ---
Author Organization [facility] Address [address] [place] [address] Care Team Providers Care Baffle Installer Name Role Phone Gus Booker MD Primary Care Provider [phone] Reason for Referral * Outpatient Services (Routine) - Closed Specialty Diagnoses / Procedures Referred By Destiney johnson Referred To Contact Diagnoses Other screening mammogram Procedures MAMMO DIGITAL SCREEN BILAT Rosa Jack MD NO ADDRESS ON FILE Referral ID Status Reason Start Date Expiration Date Visits Re quested Visits Authorized [id number] Closed 02/02/2010 08/01/2010 1 1 Encounter Details Date Type Department Care Team (Late st Contact Info) Description 02/02/2010 Ancillary Orders [facility] [address] [facility] [address] [place] [address] Rosa Jack MD NO ADDRESS ON FILE Other screening mammogram Social History Tobacco Use Types Packs/Day Years Used Date Smoking Tobacco: Never Alcohol Use Standard Drinks/Week Comments No 0 (1 standard drink = 0.6 oz pur e alcohol) Comments No Sex and Gender Information Value Date Recorded Sex Assigned at Not on file Legal Sex Female 3:03 AM PATIENT ACCOUNT LIAISON Gender Identity Not on file Sexual Orientation Not on file documented as of this encounter Plan of Treatment Not on file documented as of this encounter Results * MAMMO DIGITAL SCREEN BILAT (04/14/2010 3:50 PM PATIENT ACCOUNT LIAISON) Anatomical Region Laterality Modality Breast Bilateral Mammography Narrative 04/21/2010 10:04 AM PATIENT ACCOUNT LIAISON Bilateral Mammogram Reason for Exam: Screening Comparison: [...] mammogram documented in this encounter Care Teams Baffle Installer Relationship Specialty Start Date End Date Gus Booker MD [address] [place] [address] PCP - General Family Practice 03/19/15 documented as of this encounter
--- OUTSIDE RECORDS SUMMARY | 2025-03-09 08:09 | XMS_ITS | Encounter Summary ---
Author Organization [facility] Address [address] [place] [address] Care Team Providers Care Color Grinder Name Role Phone Gus Booker MD Primary Care Provider [phone] Encounter Details Date Type Department Care Team (Latest Contact Info) Description 12/24/2005 Outpatient Historical [facility] Endocrinology-[place] R[place] [address] [place] [address] Macho Jones MD NO ADDRESS ON FILE Malig Julio Thyroid (Primary Dx); Unspecified Hypothyroidism Social History Tobacco Use Types Packs/Day Years Used Date Smoking Tobacco: Never Assessed Comments Unknown Sex and Gender Information Value Date Recorded Sex Assigned at Not on file Legal Sex Female 3:03 AM MEDICAL AIDE Gender Identity Not on file Sexual Orientation Not on file documented as of this encounter Plan of Treatment Not on file documented as of this encounter Visit Diagnoses Diagnosis Malig julio thyroid- Primary Malignant neoplasm of thyroid gland Unspecified hypothyroidism documented in this encounter Care Teams Color Grinder Relationship Specialty Start Date End Date Gus Booker MD [address] [place] [phone] PCP - General Family Practice 03/19/15 documented as of this encounter"
--- OUTSIDE RECORDS SUMMARY | 2025-03-09 08:09 | XMS_ITS | Encounter Summary ---
Author Organization [facility] Address [address] [place] [address] Care Team Providers Care Hand Binder Stripper Name Role Phone Gus Booker MD Primary Care Provider [phone] Encounter Details Date Type Department Care Team (Latest Contact Info) Description 08/29/2006 Outpatient Historical [facility] [address] [place] [phone] Yosef Kennedy MD NO ADDRESS ON FILE Unspecified Disease of the Salivary Glands (Primary Dx); Disturbance of Salivary Secretion Social History Tobacco Use Types Packs/Day Years Used Date Smoking Tobacco: Never Assessed Comments Unknown Sex and Gender Information Value Date Recorded Sex Assigned at Not on file Legal Sex Female 3:03 AM CALL CENTER DIRECTOR Gender Identity Not on file Sexual Orientation Not on file documented as of this encounter Plan of Treatment Not on file documented as of this encounter Visit Diagnoses Diagnosis Unspecified disease of the salivary glands- Primary Disturbance of salivary secretion documented in this encounter Care Teams Hand Binder Stripper Relationship Specialty Start Date End Date Gus Booker MD [address] [place] [phone] PCP - General Family Practice 03/19/15 documented as of this encounter
--- OUTSIDE RECORDS SUMMARY | 2025-03-09 08:09 | XMS_ITS | Encounter Summary ---
Author Organization [facility] Address [address] [place] [address] Care Team Providers Care Freezer Worker Name Role Phone Gus Booker MD Primary Care Provider [phone] Encounter Details Date Type Department Care Team (Latest Contact Info) Description 10/20/2006 Outpatient Historical [facility] Endocrinology-[place]illy h [place] Rip [address] [place] [address] Macho Jones MD NO ADDRESS ON FILE Malig Julio Thyroid (Primary Dx); Unspecified Hypothyroidism Social History Tobacco Use Types Packs/Day Years Used Date Smoking Tobacco: Never Assessed Comments Unknown Sex and Gender Information Value Date Recorded Sex Assigned at Not on file Legal Sex Female 3:03 AM BICYCLE COURIER Gender Identity Not on file Sexual Orientation Not on file documented as of this encounter Plan of Treatment Not on file documented as of this encounter Visit Diagnoses Diagnosis Malig julio thyroid- Primary Malignant neoplasm of thyroid gland Unspecified hypothyroidism documented in this encounter Care Teams Freezer Worker Relationship Specialty Start Date End Date Gus Booker MD [address] [place] [phone] PCP - General Family Practice 03/19/15 documented as of this encounter
--- OUTSIDE RECORDS SUMMARY | 2025-03-09 08:09 | XMS_ITS | Encounter Summary ---
Author Organization [facility] Address [address] [place] [address] Care Team Providers Care Wire Twister Name Role Phone Gus Booker MD Primary Care Provider [phone] Encounter Details Date Type Department Care Team (Latest Contact Info) Description 09/28/[address] [facility] Imaging Services [address] [place] [phone] Yosef Kennedy MD NO ADDRESS ON FILE Other Specified Disorders of Thyroid (Primary Dx) Social History Tobacco Use Types Packs/Day Years Used Date Smoking Tobacco: Never Assessed Comments Unknown Sex and Gender Information Value Date Recorded Sex Assigned at Not on file Legal Sex Female 3:03 AM RENTAL CAR PORTER Gender Identity Not on file Sexual Orientation [...] exam. Salivary glands appearunremarkable. - Dictated By: Edwardo Godoy M.D. Electronically Signed By: Edwardo Godoy M.D. Date Signed: 09/29/[address] ORDERABLES Final Result documented in this encounter Visit Diagnoses Diagnosis Other specified disorders of thyroid- Primary documented in this encounter Care Teams Wire Twister Relationship Specialty [place] [address] [place] [phone] PCP - General Family Practice 03/19/15 documented as of this encounter
--- OUTSIDE RECORDS SUMMARY | 2025-03-09 08:09 | XMS_ITS | Encounter Summary ---
Author Organization [facility] Address [address] [place] [address] Care Team Providers Care Hand Cloth Examiner Name Role Phone Gus Booker MD Primary Care Provider [phone] Encounter Details Date Type Department Care Team (Late st Contact Info) Description 10/12/2006 Outpatient Historical [facility] [address] [place] [address] Macho Jones MD NO ADDRESS ON FILE Social History Tobacco Use Types Packs/Day Years Used Date Smoking Tobacco: Never Assessed Comments Unknown Sex and Gender Information Value Date Recorded Sex Assigned at Not on file Legal Sex Female 3:03 AM PEARLER Gender Identity Not on file Sexual Orientation [...] on filedocumented in this encounter Care Teams Hand Cloth Examiner Relationship Specialty Start Date End Date Gus Booker MD [facility] [place] [address] PCP - General Family Practice 03/19/15 documented as of this encounter
--- OUTSIDE RECORDS SUMMARY | 2025-03-09 08:09 | XMS_ITS | Encounter Summary ---
Author Organization [facility] Address [address] [place] [address] Care Team Providers Care Ict Programmer Name Role Phone Gus Booker MD Primary Care Provider [phone] Encounter Details Date Type Department Care Team (Latest Contact Info) Description 10/13/2006 Outpatient Historical [facility] Imaging Services-Jesse [place] Rip [address] [place] [address] Sandeep Riddle MD [address] [place] [phone] Postsurgical Hypothyroidism (Primary Dx); Malig Julio Thyroid Social History Tobacco Use Types Packs/Day Years Used Date Smoking Tobacco: Never Assessed Comments Unknown Sex and Gender Information Value Date Recorded Sex Assigned at Not on file Legal Sex Female 3:03 AM AUTOMOBILE ASSEMBLY SUPERVISOR Gender Identity Not on file Sexual Orientation Not on file documented as of this encounter Plan of Treatment Not on file documented as of this encounter Visit Diagnoses Diagnosis Postsurgical hypothyroidism- Primary Malig julio thyroid Malignant neoplasm of thyroid gland documented in this encounter Care Teams Ict Programmer Relationship Specialty Start Date End Date Gus Booker MD [address] [place] [phone] PCP - General Family Practice 03/19/15 documented as of this encounter
--- OUTSIDE RECORDS SUMMARY | 2025-03-09 08:09 | XMS_ITS | Encounter Summary ---
Author Organization [facility] Address [address] [place] [address] Care Team Providers Care Template Cutter Name Role Phone Gus Booker MD Primary Care Provider [phone] Encounter Details Date Type Department Care Team (Late st Contact Info) Description 07/27/2006 Outpatient [facility] Gastroenterology[address] [place] [phone] James Raman MD NO ADDRESS ON FILE Nonspecific Abnormal Results of Liver Function Study (Primary Dx) Social History Tobacco Use Types Packs/Day Years Used Date Smoking Tobacco: Never Assessed Comments Unknown Sex and Gender Information Value Date Recorded Sex Assigned at Not on file Legal Sex Female 3:03 AM FACING GRINDER Gender Identity Not on file Sexual Orientation Not on file documented as of this encounter Plan of Treatment Not on file documented as of this encounter Visit Diagnoses Diagnosis Nonspecific abnormal results of liver function study- Primary documented in this encounter Care Teams Template Cutter Relationship Specialty Start Date End Date Gus Booker MD [address] [place] [phone] PCP - General Family Practice 03/19/15 documented as of this encounter
--- OUTSIDE RECORDS SUMMARY | 2025-03-09 08:09 | XMS_ITS | Encounter Summary ---
Author Organization [facility] Address [address] [place] [address] Care Team Providers Care Second Hand Name Role Phone Gus Booker MD Primary Care Provider [phone] Encounter Details Date Type Department Care Team [...] on file Legal Sex Female 3:03 AM APPLICATION DEVELOPMENT SPECIALIST Gender Identity Not on file Sexual [...] Goal INR 3.0; range 2.5 - 3.5 POST-TX Goal INR 2.5; range 2.0 - 3.0 [...] By: Raj Lan M.D. Date Signed: 08/18/06 [facility] Procedure Note 03/08/2009 PROCEDURE TITLE: ULTRASOUND GUIDED [...] By: Raj Lan M.D. Date Signed: 08/18/06 [facility] us James Raman MD ORDERABLES Final Resul t documented in this encounter Visit Diagnoses Diagnosis Other chronic nonalcoholic liver disease- Primary documented in this encounter Care Teams Second Hand Relationship Specialty Start Date End Date Gus Booker MD [address] [place] [phone] PCP - General Family Practice 03/19/15 documented as of this encounter
--- OUTSIDE RECORDS SUMMARY | 2025-03-09 08:09 | XMS_ITS | Encounter Summary ---
Author Organization [facility] Address [address] [place] [address] Care Team Providers Care Research Program Intern Name Role Phone Gus Booker MD Primary Care Provider [phone] Reason for Referral * Outpatient Services (Routine) - Closed Specialty Diagnoses / Procedures Referred By Destiney johnson Referred To Contact Diagnoses Other screening mammogram Procedures MAMMO DIGITAL SCREEN BILAT Rosa Jack MD NO ADDRESS ON FILE Referral ID Status Reason Start Date Expiration Date Visits Re quested Visits Authorized [id number] Closed 04/21/2011 04/20/2012 1 1 STACKER Encounter Details Date Type Department Care Team (Latest Contact Info) Description 04/21/2011 Ancillary Orders [facility] Pre-Registration [place] CALL TO MAKE APPOINTMENT ONLY [address] [place] [address] Rosa Jack MD NO ADDRESS ON FILE Other screening mammogram Social History Tobacco Use Types Packs/Day Years Used Date Smoking Tobacco: Never Smokeless Tobacco: Never Alcohol Use Standard Drinks/Week Comments No 0 (1 standard drink = 0.6 oz pur e alcohol) Comments No Sex and Gender Information Value Date Recorded Sex Assigned at Not on file Legal Sex Female 3:03 AM CAN STACKER Gender Identity Not on file Sexual Orientation Not on file documented as of this encounter Plan of Treatment Not on file documented as of this encounter Results * MAMMO DIGITAL SCREEN BILAT (05/13/2011 9:39 AM CAN STACKER) Anatomical Region Laterality Modality Breast Bilateral Mammography Narrative 05/14/2011 3:57 PM CAN STACKER Bilateral Mammogram Reason for Exam: Screening Comparison: [...] mammogram documented in this encounter Care Teams Research Program Intern Relationship Specialty Start Date End Date Gus Booker MD [address] [place] [phone] PCP - General Family Practice 03/19/15 documented as of this encounter
--- OUTSIDE RECORDS SUMMARY | 2025-03-09 08:09 | XMS_ITS | Encounter Summary ---
Author Organization [facility] Address [address] [place] [address] Care Team Providers Care National Investigative Producer Name Role Phone Gus Booker MD Primary Care Provider [phone] Encounter Details Date Type Department Care Team (Latest Contact Info) Description 10/13/2005 Outpatient Historical [facility] Gen Spec [place]urg [place] [address] [place] [address] Joby Slater MD NO ADDRESS ON FILE Malig Julio Thyroid (Primary Dx); Malig Julio Lymph-Intrathoracic (CMS/HCC); Follow-Up Examination, Following Unspecified Surgery Social History Tobacco Use Types Packs/Day Years Used Date Smoking Tobacco: Never Assessed Comments Unknown Sex and Gender Information Value Date Recorded Sex Assigned at Not on file Legal Sex Female 3:03 AM DISTANCE LEARNING UNIT LEADER Gender Identity Not on file Sexual Orientation [...] surgery documented in this encounter Care Teams National Investigative Producer Relationship Specialty Start Date End Date Gus Booker MD [address] [place] [phone] PCP - General Family Practice 03/19/15 documented as of this encounter
--- OUTSIDE RECORDS SUMMARY | 2025-03-09 08:09 | XMS_ITS | Encounter Summary ---
Author Organization [facility] Address [address] [place] [address] Care Team Providers Care Senior Java Software Developer Name Role Phone Gus Booker MD Primary Care Provider [phone] Encounter Details Date Type Department Care Team (Late st Contact Info) Description 05/13/2006 Outpatient Historical [facility] [address] [place] [address] Macho Jones MD NO ADDRESS ON FILE Social History Tobacco Use Types Packs/Day Years Used Date Smoking Tobacco: Never Assessed Comments Unknown Sex and Gender Information Value Date Recorded Sex Assigned at Not on file Legal Sex Female 3:03 AM DANCE THERAPIST Gender Identity Not on file Sexual Orientation Not on file documented as of this encounter Plan of Treatment Not on file documented as of this encounter Procedures Procedure Name Priority Date/Time Associated Diagnosis Comments US HEAD NECK TISSUES Routine 05/13/2006 1:46 PM DANCE THERAPIST documented in this encounter Results * US NECK TISSUES (05/13/2006 1:46 PM DANCE THERAPIST) Anatomical Region Laterality Modality Head Other 05/13/2006 1:46 PM DANCE THERAPIST Narrative 05/13/2006 1:46 PM DANCE THERAPIST NECK ULTRASOUND - 05/16/2006: COMPARISONS: 07/20/2005 CLINICAL [...] on filedocumented in this encounter Care Teams Senior Java Software Developer Relationship Specialty [place] [address] [place] [phone] PCP - General Family Practice 03/19/15 documented as of this encounter
--- OUTSIDE RECORDS SUMMARY | 2025-03-09 08:09 | XMS_ITS | Encounter Summary ---
Author Organization [facility] Address [address] [place] [address] Care Team Providers Care Warhead Maintenance Specialist Name Role Phone Gus Booker MD Primary Care Provider [phone] Encounter Details Date Type Department Care Team (Latest Contact Info) Description 01/10/2007 Outpatient [facility] Breast Center [facility] [address] [place] [address] Rosa Jack MD NO ADDRESS ON FILE Other Screening Mammogram (Primary Dx) Social History Tobacco Use Types Packs/Day Years Used Date Smoking Tobacco: Never Assessed Comments Unknown Sex and Gender Information Value Date Recorded Sex Assigned at Not on file Legal Sex Female 3:03 AM INSOLVENCY CONSULTANT Gender Identity Not on file Sexual Orientation Not on file documented as of this encounter Plan of Treatment Not on file documented as of this encounter Visit Diagnoses Diagnosis Other screening mammogram- Primary documented in this encounter Care Teams Warhead Maintenance Specialist Relationship Specialty Start Date End Date Gus Booker MD [address] [place] [phone] PCP - General Family Practice 03/19/15 documented as of this encounter
--- OUTSIDE RECORDS SUMMARY | 2025-03-09 08:09 | XMS_ITS | Encounter Summary ---
Author Organization [facility] Address [address] [place] [address] Care Team Providers Care Pump Stitcher Name Role Phone Gus Booker MD Primary Care Provider [phone] Encounter Details Date Type Department Care Team [...] on file Legal Sex Female 3:03 AM MEDICARE SALES REPRESENTATIVE Gender Identity Not on file Sexual Orientation [...] by Provider, Historical on 03/07/2009 6:28 PM MEDICARE SALES REPRESENTATIVE The patient returned at approximately nine days [...] By: Ajith Ji M.D. Date Signed: 10/13/05 [facility] Narrative INTERFACE SYSTEM - 10/04/2005 [...] gland documented in this encounter Care Teams Pump Stitcher Relationship Specialty Start Date End Date Gus Booker MD [address] [place] [phone] PCP - General Family Practice 03/19/15 documented as of this encounter
--- OUTSIDE RECORDS SUMMARY | 2025-03-09 08:09 | XMS_ITS | Encounter Summary ---
Author Organization [facility] Address [address] [place] [address] Care Team Providers Care Car Salesman Name Role Phone Gus Booker MD Primary Care Provider [phone] Encounter Details Date Type Department Care Team (Late st Contact Info) Description 07/27/2006 Outpatient [facility] [id number] [facility] [address] [place] [address] James Raman MD NO ADDRESS ON FILE Other Nonspecific Abnormal Serum Enzyme Levels (Primary Dx) Social History Tobacco Use Types Packs/Day Years Used Date Smoking Tobacco: Never Assessed Comments Unknown Sex and Gender Information Value Date Recorded Sex Assigned at Not on file Legal Sex Female 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 07/27/2006 4:22 PM CDT Result [facility] James Raman MD CHEMISTRY ORDERABLES Edited Performing Organization Address [facility] Phone Number INTERFACE SYSTEM Refer to clinic/hospital [...] of symptoms. 07/27/2006 4:22 PM CDT Result [facility] James Raman MD CHEMISTRY ORDERABLES Edited Performing Organization Address [facility] Phone Number INTERFACE SYSTEM Refer to clinic/hospital department * CERULOPLASMIN (07/27/2006 4:22 PM CDT) CERULOPLASMIN 53.5 25.0 - 63.0 mg/dL INTERFACE SYSTEM 07/27/2006 4:22 PM CDT Result [facility] James Raman MD CHEMISTRY ORDERABLES Edited Performing Organization Address [facility] [place] Phone Number INTERFACE SYSTEM Refer to clinic/hospital department documented in this encounter Visit Diagnoses Diagnosis Other nonspecific abnormal serum enzyme levels- Primary documented in this encounter Care Teams Car Salesman Relationship Specialty Start Date End Date Gus Booker MD [address] [place] [phone] PCP - General Family Practice 03/19/15 documented as of this encounter
--- OUTSIDE RECORDS SUMMARY | 2025-03-09 08:09 | XMS_ITS | Encounter Summary ---
Author Organization [facility] Address [address] [place] [address] Care Team Providers Care It Support Engineer Name Role Phone Gus Booker MD Primary Care Provider [phone] Reason for Referral * Outpatient Services (Routine) - Closed Specialty Diagnoses / Procedures Referred By Destiney johnson Referred To Contact Diagnoses RUQ pain RLQ abdominal pain Procedures CT ABDOMEN PELVIS W CONTRAST Rosa Jack MD NO ADDRESS ON FILE Referral ID Status Reason Start Date Expiration Date Visits Re quested Visits Authorized [id number] Closed 05/11/2011 05/10/2012 1 1 D LEADER Encounter Details Date Type Department Care Team (Latest Contact Info) Description 05/11/2011 Ancillary Orders [facility] Pre-Registration [place] CALL TO MAKE APPOINTMENT ONLY [address] [place] [phone] Rosa Jack MD NO ADDRESS ON FILE RUQ pain; RLQ abdominal pain Social History Tobacco Use Types Packs/Day Years Used Date Smoking Tobacco: Never Smokeless Tobacco: Never Alcohol Use Standard Drinks/Week Comments No 0 (1 standard drink = 0.6 oz pur e alcohol) Comments No Sex and Gender Information Value Date Recorded Sex Assigned at Not on file Legal Sex Female 3:03 AM BRAND LEADER Gender Identity Not on file Sexual Orientation Not on file documented as of this encounter Plan of Treatment Not on file documented as of this encounter Results * CT ABDOMEN PELVIS W CONTRAST (05/12/2011 4:25 PM BRAND LEADER) Anatomical Region Laterality Modality Abdomen Computed Tomogra phy 05/12/2011 4:05 PM BRAND LEADER Narrative 05/17/2011 6:32 PM BRAND LEADER Exam: CT ABDOMEN PELVIS W CONTRAST Date/Time [...] for diverticulitis. [email or web address] [id number] - uploaded from [employer] - Procedure Note Archie Holloway MD - 05/17/2011 Exam: CT ABDOMEN PELVIS W CONTRAST Date/Time of Exam: May 12, 2011 04:25:00 PM Reason For Exam: ABDOMINAL PAIN, RIGHT UPPER QUADRANT. Technique: Examination consists of a helical CT scan of the abdomen and pelvis performed with IV and oral contrast on a [employer] Fem[address] scanner. A total of [...] for diverticulitis. [email or web address] [id number] - uploaded from [employer] - Rosa Jack MD CT ORDERABLES Final Result documented in this encounter Visit Diagnoses Diagnosis RUQ pain Abdominal pain, right upper quadrant RLQ abdominal pain Abdominal pain, right lower quadrant RUQ pain Abdominal pain, right upper quadrant RLQ abdominal pain Abdominal pain, right lower quadrant documented in this encounter Care Teams It Support Engineer Relationship Specialty Start Date End Date Gus Booker MD [address] [place] [phone] PCP - General Family Practice 03/19/15 documented as of this encounter
--- OUTSIDE RECORDS SUMMARY | 2025-03-09 08:09 | XMS_ITS | Encounter Summary ---
Author Organization [facility] Address [address] [place] [address] Care Team Providers Care Dry Cleaning Attendant Name Role Phone Gus Booker MD Primary Care Provider [phone] Encounter Details Date Type Department Care Team (Late st Contact Info) Description 12/24/2005 Outpatient Historical [facility] Breast [place] [address] [facility] [address] [place] [address] Sabi Foster MD NO ADDRESS ON FILE Other Screening Mammogram (Primary Dx) Social History Tobacco Use Types Packs/Day Years Used Date Smoking Tobacco: Never Assessed Comments Unknown Sex and Gender Information Value Date Recorded Sex Assigned at Not on file Legal Sex Female 3:03 AM WEIGHT REDUCTION SPECIALIST Gender Identity Not on file Sexual Orientation Not on file documented as of this encounter Plan of Treatment Not on file documented as of this encounter Visit Diagnoses Diagnosis Other screening mammogram- Primary documented in this encounter Care Teams Dry Cleaning Attendant Relationship Specialty Start Date End Date Gus Booker MD [address] [place] [phone] PCP - General Family Practice 03/19/15 documented as of this encounter
--- OUTSIDE RECORDS SUMMARY | 2025-03-09 08:09 | XMS_ITS | Encounter Summary ---
Author Organization [facility] Address [address] [place] [address] Care Team Providers Care Rn Home Health Name Role Phone Gus Booker MD Primary Care Provider [phone] Encounter Details Date Type Department Care Team (Latest Contact Info) Description 01/10/[address] Outpatient [address] [facility] Breast [place] [address] [facility] [address] [place] [address] Mayur Vance MD NO ADDRESS ON FILE Other Screening Mammogram (Primary Dx) Social History Tobacco Use Types Packs/Day Years Used Date Smoking Tobacco: Never Assessed Comments Unknown Sex and Gender Information Value Date Recorded Sex Assigned at Not on file Legal Sex Female 3:03 AM VIRTUALIZATION ENGINEER Gender Identity Not on file Sexual Orientation Not on file documented as of this encounter Plan of Treatment Not on file documented as of this encounter Visit Diagnoses Diagnosis Other screening mammogram- Primary documented in this encounter Care Teams Rn Home Health Relationship Specialty Start Date End Date Gus Booker MD [address] [place] [phone] PCP - General Family Practice 03/19/15 documented as of this encounter
--- OUTSIDE RECORDS SUMMARY | 2025-03-09 08:09 | XMS_ITS | Encounter Summary ---
Author Organization [facility] Address [address] [place] [address] Care Team Providers Care Crusher Machine Operator Name Role Phone Gus Booker MD Primary Care Provider [phone] Encounter Details Date Type Department Care Team (Late st Contact Info) Description 12/29/2006 Outpatient Historical [facility] [address] [place] [phone] Macho Jones MD NO ADDRESS ON FILE Social History Tobacco Use Types Packs/Day Years Used Date Smoking Tobacco: Never Assessed Comments Unknown Sex and Gender Information Value Date Recorded Sex Assigned at Not on file Legal Sex Female 3:03 AM DIRECTOR OF CONSULTING SERVICES Gender Identity Not on file Sexual Orientation Not on file documented as of this encounter Plan of Treatment Not on file documented as of this encounter Visit Diagnoses Not on filedocumented in this encounter Care Teams Crusher Machine Operator Relationship Specialty Start Date End Date Gus Booker MD [address] [place] [phone] PCP - General Family Practice 03/19/15 documented as of this encounter
--- OUTSIDE RECORDS SUMMARY | 2025-03-09 08:09 | XMS_ITS | Encounter Summary ---
Author Organization [facility] Address [address] [place] [address] Care Team Providers Care Mystery Shopper Name Role Phone Gus Booker MD Primary Care Provider [phone] Encounter Details Date Type Department Care Team (Late st Contact Info) Description 05/18/2006 Outpatient [facility]- [place] [id number] [facility] [address] [place] [address] James Raman MD NO ADDRESS ON FILE Benign Julio Lg Bowel (Primary Dx); Other Symptoms Involving Digestive System; Acute Gastritis; Abdominal Pain, Epigastric Social History Tobacco Use Types Packs/Day Years Used Date Smoking Tobacco: Never Assessed Comments Unknown Sex and Gender Information Value Date Recorded Sex Assigned at Not on file Legal Sex Female 3:03 AM SHERIFFS DETECTIVE Gender Identity Not on file Sexual Orientation [...] epigastric documented in this encounter Care Teams Mystery Shopper Relationship Specialty Start Date End Date Gus Booker MD [address] [place] [phone] PCP - General Family Practice 03/19/15 documented as of this encounter
--- OUTSIDE RECORDS SUMMARY | 2025-03-09 08:09 | XMS_ITS | Encounter Summary ---
Author Organization [facility] Address [address] [place] [address] Care Team Providers Care Electric Appliance Installer Name Role Phone Gus Booker MD Primary Care Provider [phone] Encounter Details Date Type Department Care Team (Latest Contact Info) Description 08/29/2006 Outpatient [facility] [address] [facility] [address] [place] [address] James Raman MD NO ADDRESS ON FILE Other and Unspecified Noninfectious Gastroenteritis and Colitis (Primary Dx); Other Chronic Nonalcoholic Liver Disease Social History Tobacco Use Types Packs/Day Years Used Date Smoking Tobacco: Never Assessed Comments Unknown Sex and Gender Information Value Date Recorded Sex Assigned at Not on file Legal Sex Female 3:03 AM STONEWORK SUPERVISOR Gender Identity Not on file Sexual Orientation Not on file documented as of this encounter Plan of Treatment Not on file documented as of this encounter Visit Diagnoses Diagnosis Other and unspecified noninfectious gastroenteritis and colitis(558.9)- Primary Other and unspecified noninfectious gastroenteritis and colitis Other chronic nonalcoholic liver disease documented in this encounter Care Teams Electric Appliance Installer Relationship Specialty Start Date End Date Gus Booker MD [address] [place] [phone] PCP - General Family Practice 03/19/15 documented as of this encounter
--- OUTSIDE RECORDS SUMMARY | 2025-03-09 08:09 | XMS_ITS | Encounter Summary ---
Author Organization [facility] Address [address] [place] [address] Care Team Providers Care Legal Aid Name Role Phone Gus Booker MD Primary Care Provider [phone] Encounter Details Date Type Department Care Team (Latest Contact Info) Description 05/16/2006 Outpatient Historical [facility] [place] [address] [place] [phone] Macho Jones MD NO ADDRESS ON FILE Malig Julio Thyroid (Primary Dx); Unspecified Hypothyroidism Social History Tobacco Use Types Packs/Day Years Used Date Smoking Tobacco: Never Assessed Comments Unknown Sex and Gender Information Value Date Recorded Sex Assigned at Not on file Legal Sex Female 3:03 AM SENIOR CONSULTANT Gender Identity Not on file Sexual Orientation Not on file documented as of this encounter Plan of Treatment Not on file documented as of this encounter Visit Diagnoses Diagnosis Malig julio thyroid- Primary Malignant neoplasm of thyroid gland Unspecified hypothyroidism documented in this encounter Care Teams Legal Aid Relationship Specialty Start Date End Date Gus Booker MD [address] [place] [phone] PCP - General Family Practice 03/19/15 documented as of this encounter
--- OUTSIDE RECORDS SUMMARY | 2025-03-09 08:09 | XMS_ITS | Encounter Summary ---
Author Organization [facility] Address [address] [place] [address] Care Team Providers Care Photonics Engineering Technician Name Role Phone Gus Booker MD Primary Care Provider [phone] Encounter Details Date Type Department Care Team (Latest Contact Info) Description 05/23/2006 Outpatient Historical [facility] Services [address] [place] [phone] Rosa Jack MD NO ADDRESS ON FILE Unspecified Disorder of Liver (Primary Dx) Social History Tobacco Use Types Packs/Day Years Used Date Smoking Tobacco: Never Assessed Comments Unknown Sex and Gender Information Value Date Recorded Sex Assigned at Not on file Legal Sex Female 3: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
--- OUTSIDE RECORDS SUMMARY | 2025-03-09 08:09 | XMS_ITS | Encounter Summary ---
Author Organization [facility] Address [address] [place] [address] Care Team Providers Care Dining Room Helper Name Role Phone Gus Booker MD Primary Care Provider [phone] Encounter Details Date Type Department Care Team (Latest Contact Info) Description 07/02/2014 Ancillary Orders [facility] - [facility] [address] [place] [address] Ty Naqvi MD NO ADDRESS [...] on file Legal Sex Female 3:03 AM SHOE DRESSER Gender Identity Not on file Sexual Orientation [...] Please see above. [email or web address] - uploaded from [employer] - Narrative Procedure Note Evangelina Aragon MD [...] Please see above. Fred - uploaded from [employer] - us Ty Naqvi MD DIAGNOSTIC IMAGING ORDERABLE S Final Result documented in this encounter Visit Diagnoses Diagnosis Shoulder pain, right- Primary Pain in joint, shoulder region Shoulder pain, right Pain in joint, shoulder region documented in this encounter Care Teams Dining Room Helper Relationship Specialty Start Date End Date Gus Booker MD [address] [place] [phone] PCP - General Family Practice 03/19/15 documented as of this encounter
--- NOTE | 2025-03-09 08:17 | W.ED.BACK ---
HPI - Back Pain/Injury General: Chief Complaint: Back Pain/Injury Stated Complaint: back pain Time Seen by Provider: 03/09/25 08:06 History of Present Illness: 70-year-old female with a history of recent laminectomy revision. She was in the emergency room overnight with worsening back pain. She was given some Dilaudid and went home with some improvement but symptoms have worsened. She called Dr. Ansari this morning and he may admit her she says. She says pain is radiating down both legs. No saddle numbness, no fecal or urinary retention or incontinence, no focal motor deficit, no sensory deficit. Related Data Home Medications ?Medication ?Instructions ?Recorded ?Confirmed aspirin 81 mg tablet,delayed 81 mg PO DAILY 01/02/20 03/06/25 release Held on 03/06/25. Instructions: Resume on 03/08/25. cholecalciferol (vitamin D3) 125 125 mcg PO DAILY 01/02/20 03/06/25 mcg (5,000 unit) capsule ferrous sulfate 325 mg (65 mg 325 mg PO DAILY 07/14/21 03/06/25 iron) tablet omega-3 fatty acids 500 mg capsule 500 mg PO DAILY 07/14/21 03/06/25 vitamin B complex 1 tab PO DAILY 07/15/21 03/06/25 levothyroxine 175 mcg tablet 175 mcg PO DAILY 03/30/23 03/06/25 latanoprost 0.005 % eye drops 1 drp ophthalmic (eye) BEDTIME 09/06/23 03/06/25 (Xalatan) carvedilol 12.5 mg tablet 12.5 mg PO BID 03/05/25 03/06/25 metformin 500 mg tablet 500 mg PO DAILY 03/05/25 03/06/25 ropinirole 1 mg tablet 1 mg PO DAILY 03/05/25 03/06/25 Previous Rx's ?Medication ?Instructions ?Recorded nitroglycerin 0.4 mg sublingual 0.4 mg sublingual Q5M PRN chest 01/19/24 tablet pain #20 tabs loratadine 5 mg-pseudoephedrine ER 1 tab PO Q12H PRN allergy symptoms 03/22/24 120 mg tablet,extended #30 tabs release,12hr (Claritin-D 12 Hour) triamcinolone acetonide 0.1 % 1 applic topical DAILY #30 grams 05/11/24 topical cream Manual wheelchair #1 ea 06/04/24 sucralfate 1 gram tablet 1 g PO BID #120 tabs 07/23/24 ondansetron HCl 4 mg tablet 4 mg PO Q8H PRN nausea and 08/04/24 vomiting #30 tabs fluoxetine #1 ea 12/26/24 pantoprazole 20 mg tablet,delayed 20 mg PO BID #180 tabs 12/27/24 release carisoprodol 350 mg tablet 350 mg PO BID PRN muscle pain #30 01/03/25 tabs losartan 100 mg tablet 100 mg PO DAILY #30 tabs 01/24/25 dicyclomine 10 mg capsule 10 mg PO BID PRN abdominal pain 02/12/25 #60 caps hydrocodone 5 mg-acetaminophen 325 1 - 2 tab PO .Q4-6H #40 tabs 03/06/25 mg tablet Allergies Allergy/AdvReac Type Severity Reaction Status Date / Time clarithromycin (From Biaxin) Allergy Severe swells Verified 03/06/25 11:17 metoclopramide (From Reglan) Allergy Unknown ADR-Headach Verified 03/06/25 11:17 e atorvastatin Allergy ADR-Muscle Verified 03/06/25 11:17 Pain buspirone (From BuSpar) Allergy chest pain Verified 03/06/25 11:17 metronidazole (From Flagyl) Allergy ADR-Abdominal Verified 03/06/25 11:17 Pain Penicillins Allergy ALGY-Swell Verified 03/06/25 11:17 Lip/Tongue/Throat tetracycline Allergy ALGY-Swell Verified 03/06/25 11:17 Lip/Tongue/Throat Review of Systems Narrative: Constitutional symptoms: Negative except as documented in HPI. Skin symptoms: Negative except as documented in HPI. Eye symptoms: Negative except as documented in HPI. ENMT symptoms: Negative except as documented in HPI. Respiratory symptoms: Negative except as documented in HPI. Cardiovascular symptoms: Negative except as documented in HPI. Gastrointestinal symptoms: Negative except as documented in HPI. Genitourinary symptoms: Negative except as documented in HPI. Musculoskeletal symptoms: Negative except as documented in HPI. Neurologic symptoms: Negative except as documented in HPI. Psychiatric symptoms: Negative except as documented in HPI. Endocrine symptoms: Negative except as documented in HPI. PFSH ED PFSH: Medical History (Updated 03/09/25 @ 08:17 by Jennifer Yepez MD) Hyperlipidemia associated with type 2 diabetes mellitus Essential hypertension Subacromial impingement of left shoulder Tear of biceps tendon Acromioclavicular joint arthritis COVID-19 Sleep apnea Hypertension Thyroid cancer Surgical History H/O shoulder surgery Left - Dec 2022 History of eye surgery History of excision of mass (07/16/21) Status post colonoscopy History of esophagogastroduodenoscopy History of liver biopsy S/P angiogram of extremity H/O neck surgery Repeat cervical spine surgery on 03/15/22 H/O: hysterectomy H/O carpal tunnel repair H/O knee surgery History of appendectomy Hx laparoscopic cholecystectomy Family History Other Cancer Social History Smoking and tobacco/nicotine status: never used tobacco/nicotine Alcohol intake: never Substance/Drug Use: never Additional social history: Lost a child at a few months of age due to an intra-abdominal infection. Marital status: Physical Exam Narrative: EXAM NARRATIVE: General: Alert, no acute distress. Head: Normocephalic Neck: Trachea midline Eye: Extraocular movements are intact. Ears, nose, mouth and throat: Oral mucosa moist Respiratory: Respirations are non-labored Musculoskeletal: Normal ROM Back: no step off, no focal tenderness, incision site appears clean dry and intact Neurological: Alert and oriented, No focal neurological deficit observed. Psychiatric: Cooperative, appropriate mood & affect. Course Vital Signs: Vital signs: Vital Signs Temperature 98.6 F 03/09/25 08:03 Pulse Rate 76 03/09/25 08:03 Respiratory Rate 20 H 03/09/25 08:03 Blood Pressure 165/67 03/09/25 08:03 Pulse Oximetry 98 03/09/25 08:03 Oxygen Delivery Me thod Room Air 03/09/25 08:03 MDM - Back Pain/Injury Medical Decision Making Medical decision making Patient's reason for coming to the emergency room: Postoperative back pain Social determinants: Patient is retired. Her is with her. I reviewed the patient's medical record. Reviewed recent operative note. I reviewed the patient's current home meds Patient is on hydrocodone at home Alternate historians: None Differential diagnosis: including but not limited to and based on the above HPI, review of systems and physical exam: Patient is having uncontrolled postop back food. Spoke with Dr. Ansari and he is going to put her in for pain control. Assessment of risk: Level of risk: Moderate risk. Hospitalization considerations: Patient is being admitted for pain control Consultation: I spoke with Dr. Ansari who is on-call for orthopedics and is her operating surgeon. He is going to admit the patient and try to get her pain under control Patient had a CT scan earlier tonight. No indication for further imaging at this point. Assessment and plan: Postoperative back pain ?Toradol, Solu-Medrol, Dilaudid and Zofran in the emergency room -I discussed the patient with the hospitalist on-call who is admitting the patient. - Discussed findings and plan with patient. Answered any questions. - Evaluation and treatment of this problem were appropriate in the emergency setting No radiology studies performed this visit Discharge Plan Discharge Patient Disposition: Placed in Observation Admit Provider: Camilo Ansari Clinical Impression: Postoperative back pain Coding Level of Care Code ED Wrist Liner for Dennys Mendosa
[2025-03-09] MEDS: methylPREDNISolone sod succ 125 mg/2 mL INJ IVP (08:23)
[2025-03-09] MEDS: HYDROmorphone 0.5 MG/0.5 ML INJ 1 MG IVP (08:25)
[2025-03-09] MEDS: orphenadrine 30 mg/mL Inj 2 mL 60 MG IVP (08:27)
[2025-03-09] MEDS: ondansetron 2 mg/ML SDV 2 mL 4 MG IVP ×2 (08:37→13:37)
--- NOTE | 2025-03-09 13:01 | PM.HP ---
Providers/Chief Complaint Admitting Physician: Camilo Ansari DO Primary Care Provider: Gus Booker MD Chief Complaint: back pain History of Present Illness Kenia Posadas is a 70 year old female had revision decompression on Tuesday this week. Is having severe pain when I saw her in the ER they had given her some pain meds and some steroids she is better controlled now. Will keep her overnight hopefully get her discharged tomorrow Review of Systems General: Reports: 10 or more systems reviewed and unremarkable except in HPI and below Const: Denies: fever(s) or chills Card: Denies: chest pain or orthopnea Resp: Denies: dyspnea, productive cough or wheezing GI: Denies: abdominal pain, nausea or vomiting Musc: Reports: joint pain, joint swelling, joint stiffness and limited range of motion Skin/Breast: Denies: rash, pruritus or dry skin Neuro: Denies: numbness in extremities or weakness in extremities Psych: Denies: anxiety Zoran/Lymph: Denies: easy bruising or easy bleeding Medications/Allergies Home Medications ?Medication ?Instructions ?Recorded ?Confirmed ?Last Taken ?Type aspirin 81 mg tablet,delayed 81 mg PO DAILY 01/02/20 03/09/25 03/02/25 History release Held on 03/06/25. Instructions: Resume on 03/08/25. cholecalciferol (vitamin D3) 125 125 mcg PO DAILY 01/02/20 03/09/25 03/05/25 History mcg (5,000 unit) capsule vitamin B complex 1 tab PO DAILY 07/15/21 03/09/25 08/22/24 10:00 History levothyroxine 175 mcg tablet 175 mcg PO DAILY 03/30/23 03/09/25 03/08/25 08:00 History latanoprost 0.005 % eye drops 1 drp ophthalmic (eye) BEDTIME 09/06/23 03/09/25 03/08/25 19:00 History (Xalatan) nitroglycerin 0.4 mg sublingual 0.4 mg sublingual Q5M PRN chest 01/19/24 03/09/25 08/22/24 10:00 Rx tablet pain #20 tabs loratadine 5 mg-pseudoephedrine ER 1 tab PO Q12H PRN allergy symptoms 03/22/24 03/09/25 03/08/25 Rx 120 mg tablet,extended #30 tabs release,12hr (Claritin-D 12 Hour) triamcinolone acetonide 0.1 % 1 applic topical DAILY #30 grams 05/11/24 03/09/25 08/22/24 10:00 Rx topical cream Manual wheelchair #1 ea 06/04/24 03/09/25 Unknown Rx ondansetron HCl 4 mg tablet 4 mg PO Q8H PRN nausea and 08/04/24 03/09/25 03/06/25 Rx vomiting #30 tabs fluoxetine #1 ea 12/26/24 03/09/25 Unknown Rx pantoprazole 20 mg tablet,delayed 20 mg PO BID #180 tabs 12/27/24 03/09/25 03/08/25 Rx release carisoprodol 350 mg tablet 350 mg PO BID PRN muscle pain #30 01/03/25 03/09/25 Unknown Rx tabs losartan 100 mg tablet 100 mg PO DAILY #30 tabs 01/24/25 03/09/25 03/08/25 Rx dicyclomine 10 mg capsule 10 mg PO BID PRN abdominal pain 02/12/25 03/09/25 Unknown Rx #60 caps carvedilol 12.5 mg tablet 12.5 mg PO BID 03/05/25 03/09/25 03/08/25 History metformin 500 mg tablet 500 mg PO DAILY 03/05/25 03/09/25 03/08/25 History ropinirole 1 mg tablet 1 mg PO DAILY 03/05/25 03/09/25 03/08/25 18:00 History hydrocodone 5 mg-acetaminophen 325 1 - 2 tab PO .Q4-6H #40 tabs 03/06/25 03/09/25 03/08/25 Rx mg tablet omega 3 350 mg-dha 235 mg-epa 90 1 cap PO DAILY 03/09/25 03/09/25 Unknown History mg-fish oil 597 mg capsule,delay rel (Bena-3) Allergies Allergy/AdvReac Type Severity Reaction Status Date / Time clarithromycin (From Biaxin) Allergy Severe swells Verified 03/06/25 11:17 metoclopramide (From Reglan) Allergy Unknown ADR-Headach Verified 03/06/25 11:17 e atorvastatin Allergy ADR-Muscle Verified 03/06/25 11:17 Pain buspirone (From BuSpar) Allergy chest pain Verified 03/06/25 11:17 metronidazole (From Flagyl) Allergy ADR-Abdominal Verified 03/06/25 11:17 Pain Penicillins Allergy ALGY-Swell Verified 03/06/25 11:17 Lip/Tongue/Throat tetracycline Allergy ALGY-Swell Verified 03/06/25 11:17 Lip/Tongue/Throat PFSH Acute PFSH: Medical History (Updated 03/09/25 @ 08:17 by Jennifer Yepez MD) Hyperlipidemia associated with type 2 diabetes mellitus Essential hypertension Subacromial impingement of left shoulder Tear of biceps tendon Acromioclavicular joint arthritis COVID-19 Sleep apnea Hypertension Thyroid cancer Surgical History H/O shoulder surgery Left - Dec 2022 History of eye surgery History of excision of mass (07/16/21) Status post colonoscopy History of esophagogastroduodenoscopy History of liver biopsy S/P angiogram of extremity H/O neck surgery Repeat cervical spine surgery on 03/15/22 H/O: hysterectomy H/O carpal tunnel repair H/O knee surgery History of appendectomy Hx laparoscopic cholecystectomy Family History Other Cancer Social History Smoking and tobacco/nicotine status: never used tobacco/nicotine Alcohol intake: never Substance/Drug Use: never Additional social history: Lost a child at a few months of age due to an intra-abdominal infection. Marital status: Vitals/I&O/Wt Last Vital Signs Temp 98.6 F 03/09/25 08:03 Pulse 71 03/09/25 11:41 Resp 16 03/09/25 11:41 BP 169/77 03/09/25 11:41 Pulse Ox 98 03/09/25 11:41 O2 Del Method Room Air 03/09/25 11:42 03/08/25 03/09/25 03/09/25 22:59 06:59 14:59 Intake Total 0 / 0 Balance 0 / 0 Weight last 48 hrs Weight 230 lb Physical Exam Narrative: Alert and oriented x 3 Head is normocephalic atraumatic Respirations are intact No evidence of any rashes or infection 5/5 strength in bilateral upper and lower extremities Sensation intact in all extremities Deep tendon reflexes 2 out of 4 bilateral upper and lower extremities A&P Assessment and plan 1. Status post lumbar laminectomy: Patient is admitted for pain control PDMP PDMP Reviewed: Not Reviewed Attestations Medical Necessity Statement*: Pain Coding Level of Care Code Acute Code for Chg Fwd Diagnoses Status post lumbar laminectomy Z98.890
[2025-03-09] MEDS: methylPREDNISolone sod succ 40 mg/mL INJ 30 MG IVP ×2 (13:22→20:45)
[2025-03-09] MEDS: morphine 4 mg/mL SDV 1 mL 2 MG IVP ×2 (13:37→16:15)
--- OUTSIDE RECORDS SUMMARY | 2025-03-09 13:37 | XMS_ITS | Encounter Summary ---
Author Organization [facility] Address [address] [place] [address] Care Team Providers Care Pupil Personnel Worker Name Role Phone Gus Booker MD Primary Care Provider [phone] Encounter Details Date Type Department Care Team (Latest Contact Info) Description 03/01/2000 Outpatient Historical [facility] Psychiatry[address] [place] [address] Sanjay Nunez MD NO ADDRESS ON FILE Major depressive disorder, recurrent episode, severe, without mention of psychotic behavior (CMS/HCC) (Primary Dx) Social History Tobacco Use Types Packs/Day Years Used Date Smoking Tobacco: Never Assessed Comments Unknown Sex and Gender Information Value Date Recorded Sex Assigned at Not on file Legal 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 Gender Identity Not on file Sexual Orientation Not on file documented as of this encounter Plan of Treatment Not on file documented as of this encounter Visit Diagnoses Diagnosis Major depressive disorder, recurrent episode, severe, without mention of psychotic behavior (CMS/HCC)- Primary Major depressive disorder, recurrent episode, severe, without mention of psychotic behavior documented in this encounter Care Teams Pupil Personnel Worker Relationship Specialty Start Date End Date Gus Booker MD [address] [place] [phone] PCP - General Family Practice 03/19/15 documented as of this encounter
--- OUTSIDE RECORDS SUMMARY | 2025-03-09 13:37 | XMS_ITS | Encounter Summary ---
Author Organization [facility] Address [address] [place] [address] Care Team Providers Care Crop Setting Out Machine Operator Name Role Phone Gus Booker MD Primary Care Provider [phone] Encounter Details Date Type Department Care Team (Latest Contact Info) Description 04/21/2007 Outpatient Historical [facility] Imaging Services-[place] Jose Rip [address] [place] [address] Macho Jones MD NO ADDRESS ON FILE Unspecified Hypothyroidism Social History Tobacco Use Types Packs/Day Years Used Date Smoking Tobacco: Never Assessed Comments Unknown Sex and Gender Information Value Date Recorded Sex Assigned at Not on file Legal Sex Female 3: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 Gender Identity Not on file Sexual Orientation Not on file documented as of this encounter Plan of Treatment Not on file documented as of this encounter Procedures Procedure Name Priority Date/Time Associated Diagnosis Comments US HEAD NECK TISSUES Routine 04/21/2007 1:20 PM FOREST LANDSCAPE ECOLOGY PROFESSOR documented in this encounter Results * US NECK TISSUES (04/21/2007 1:20 PM FOREST LANDSCAPE ECOLOGY PROFESSOR) Anatomical Region Laterality Modality Head Other 04/21/2007 1:20 PM FOREST LANDSCAPE ECOLOGY PROFESSOR Narrative 04/21/2007 1:20 PM FOREST LANDSCAPE ECOLOGY PROFESSOR Exam: US-NeckDate/Time of Exam: Apr 24, 2007 [...] hypothyroidism documented in this encounter Care Teams Crop Setting Out Machine Operator Relationship Specialty Start Date End Date Gus Booker MD [address] [place] [phone] PCP - General Family Practice 03/19/15 documented as of this encounter
--- OUTSIDE RECORDS SUMMARY | 2025-03-09 13:37 | XMS_ITS | Encounter Summary ---
Author Organization [facility] Address [address] [place] [address] Care Team Providers Care Medical Logistics Specialist Name Role Phone Gus Booker MD Primary Care Provider [phone] Encounter Details Date Type Department Care Team (Latest Contact Info) Description 08/25/2005 Outpatient Historical [facility] Gen Spec Surg [place] 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
--- OUTSIDE RECORDS SUMMARY | 2025-03-09 13:37 | XMS_ITS | Encounter Summary ---
Author Organization [facility] Address [address] 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
--- OUTSIDE RECORDS SUMMARY | 2025-03-09 13:37 | XMS_ITS | Encounter Summary ---
Author Organization [facility] Address [address] [place] [address] Care Team Providers Care Block Setter Gypsum Name Role Phone Gus Booker MD Primary Care Provider [phone] Encounter Details Date Type Department Care Team (Latest Contact Info) Description 12/10/[address] [facility] Breast [place] [address] [facility] [address] [place] [address] Mayur Vance MD NO ADDRESS ON FILE SCREENING MAMM-MAILG NEOPL-OTHER (Primary Dx) Social History Tobacco Use Types Packs/Day Years Used Date Smoking Tobacco: Never Assessed Comments Unknown Sex and Gender Information Value Date Recorded Sex Assigned at Not on file Legal Sex Female 3:03 AM TOOL ENGINEER Gender Identity Not on file Sexual Orientation Not on file documented as of this encounter Plan of Treatment Not on file documented as of this encounter Visit Diagnoses Diagnosis Other screening mammogram- Primary documented in this encounter Care Teams Block Setter Gypsum Relationship Specialty Start Date End Date Gus Booker MD [address] [place] [phone] PCP - General Family Practice 03/19/15 documented as of this encounter
--- OUTSIDE RECORDS SUMMARY | 2025-03-09 13:37 | XMS_ITS | Encounter Summary ---
Author Organization [facility] Address [address] [place] [address] Care Team Providers Care Software Testing Specialist Name Role Phone Gus Booker MD Primary Care Provider [phone] Encounter Details Date Type Department Care Team (Latest Contact Info) Description 12/22/2004 Outpatient [facility] Breast Center [facility] [address] [place] [address] Rosa Jack MD NO ADDRESS ON FILE SCREENING MAMM-MAILG NEOPL NEC (Primary Dx) Social History Tobacco Use Types Packs/Day Years Used Date Smoking Tobacco: Never Assessed Comments Unknown Sex and Gender Information Value Date Recorded Sex Assigned at Not on file Legal Sex Female 3:03 AM TRANSMITTER CHIEF Gender Identity Not on file Sexual Orientation Not on file documented as of this encounter Plan of Treatment Not on file documented as of this encounter Visit Diagnoses Diagnosis Other screening mammogram- Primary documented in this encounter Care Teams Software Testing Specialist Relationship Specialty Start Date End Date Gus Booker MD [address] [place] [phone] PCP - General Family Practice 03/19/15 documented as of this encounter
--- OUTSIDE RECORDS SUMMARY | 2025-03-09 13:37 | XMS_ITS | Encounter Summary ---
Author Organization [facility] Address [address] [place] [address] Care Team Providers Care Carbon Setter Name Role Phone Gus Booker MD Primary Care Provider [phone] Encounter Details Date Type Department Care Team (Latest Contact Info) Description 05/11/2001 Outpatient Historical [facility] Ear, Nose and Throat 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
--- OUTSIDE RECORDS SUMMARY | 2025-03-09 13:37 | XMS_ITS | Encounter Summary ---
Author Organization [facility] Address [address] [place] [address] Care Team Providers Care Lens Dotter Name Role Phone Gus Booker MD Primary Care Provider [phone] Encounter Details Date Type Department Care Team (Late st Contact Info) Description 04/24/2007 Outpatient Historical [facility] Imaging Services[facility] [place] [address] [place] [phone] Social History Tobacco Use Types Packs/Day Years Used Date Smoking Tobacco: Never Assessed Comments Unknown Sex and Gender Information Value Date Recorded Sex Assigned at Not on file 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
--- OUTSIDE RECORDS SUMMARY | 2025-03-09 13:37 | XMS_ITS | Encounter Summary ---
Author Organization [facility] Address [address] [place] [address] Care Team Providers Care Workers Compensation Attorney Name Role Phone Gus Booker MD Primary Care Provider [phone] Encounter Details Date Type Department Care Team (Latest Contact Info) Description 12/10/2003 Outpatient [facility] Breast Center 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
--- OUTSIDE RECORDS SUMMARY | 2025-03-09 13:37 | XMS_ITS | Encounter Summary ---
Author Organization [facility] Address [address] [place] [address] Care Team Providers Care Medicare Sales Executive Name Role Phone Gus Booker MD Primary Care Provider [phone] Encounter Details Date Type Department Care Team (Late st Contact Info) Description 05/01/2007 Outpatient Historical [facility] Endocrinology-[facility] [address] [place] [address] Macho Jones MD NO ADDRESS ON FILE Social History Tobacco Use Types Packs/Day Years Used Date Smoking Tobacco: Never Assessed Comments No Sex and Gender Information Value Date Recorded Sex Assigned at Not on file Legal Sex Female 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
--- OUTSIDE RECORDS SUMMARY | 2025-03-09 13:37 | XMS_ITS | Encounter Summary ---
Author Organization [facility] Address [address] [place] [address] Care Team Providers Care Building Mechanic Name Role Phone Gus Booker MD Primary Care Provider [phone] Encounter Details Date Type Department Care Team (Latest Contact Info) Description 12/19/2001 Outpatient Historical [facility] Breast [place] [address] [facility] [address] [place] [address] Mayur Vance MD NO ADDRESS ON FILE SCREENING MAMM-MAILG NEOPL-OTHER (Primary Dx) Social History Tobacco Use Types Packs/Day Years Used Date Smoking Tobacco: Never Assessed Comments Unknown Sex and Gender Information Value Date Recorded Sex Assigned at Not on file Legal Sex Female 3: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
--- OUTSIDE RECORDS SUMMARY | 2025-03-09 13:37 | XMS_ITS | Encounter Summary ---
Author Organization [facility] Address [address] [place] [address] Care Team Providers Care Opto Mechanical Technician Name Role Phone Gus Booker MD Primary Care Provider [phone] Reason for Referral * Radiology Services (Routine) - Closed Specialty Diagnoses / Procedures Referred By Contac t Referred To Contact Radiology Diagnoses Visit for screening mammogram Procedures MAMMO SCRN BILAT 3D NUPUR W OR WO CAD CHG SCREENING MAMMOGRAPHY BI 2-VIEW BREAST INC CAD CHG SCREENING DIGITAL BREAST TOMOSYNTHESIS BI Gus Booker MD [address] [facility] [facility] [place] [address] Phone: tel: fax: [facility] [address] [address] Phone: tel: fax: Referral ID Status Reason Start Date Expiration Date Visits Re quested Visits Authorized [id number] Closed 03/18/2020 04/18/2021 1 1 PRESS TENDER Encounter Details Date Type Department Care Team (Latest Contact Info) Description 03/18/2020 Ancillary Orders [facility] Pre-Registration [place] CALL TO MAKE APPOINTMENT ONLY [address] [place] [address] Gus Booker MD [address] [place] [address] Visit for screening mammogram Social History Tobacco Use Types Packs/Day Years Used Date Smoking Tobacco: Never Smokeless Tobacco: Never Alcohol Use Standard Drinks/Week Comments No 0 (1 standard drink = 0.6 oz pur e alcohol) Comments No Sex and Gender Information Value Date Recorded Sex Assigned at Not on file Legal Sex Female 3:03 AM WET PRESS TENDER Gender Identity Not on file Sexual Orientation [...] mammogram documented in this encounter Care Teams Opto Mechanical Technician Relationship Specialty Start Date End Date Gus Booker MD [address] [place] [phone] PCP - General Family Practice 03/19/15 documented as of this encounter
--- OUTSIDE RECORDS SUMMARY | 2025-03-09 13:37 | XMS_ITS | Encounter Summary ---
Author Organization [facility] Address [address] [place] [address] Care Team Providers Care Train Braker Name Role Phone Gus Booker MD Primary Care Provider [phone] Encounter Details Date Type Department Care Team (Latest Contact Info) Description 09/02/[address] [facility] Endocrinology-[facility] [place] [address] [place] [address] Macho Jones MD NO ADDRESS ON FILE Malig Julio Thyroid (Primary Dx) Social History Tobacco Use Types Packs/Day Years Used Date Smoking Tobacco: Never Assessed Comments Unknown Sex and Gender Information Value Date Recorded Sex Assigned at Not on file Legal Sex Female 3:03 AM COUNTER TENDER Gender Identity Not on file Sexual Orientation Not on file documented as of this encounter Plan of Treatment Not on file documented as of this encounter Visit Diagnoses Diagnosis Malig julio thyroid- Primary Malignant neoplasm of thyroid gland documented in this encounter Care Teams Train Braker Relationship Specialty Start Date End Date Gus Booker MD [address] [place] [address] PCP - General Family Practice 03/19/15 documented as of this encounter
--- OUTSIDE RECORDS SUMMARY | 2025-03-09 13:37 | XMS_ITS | Encounter Summary ---
Author Organization [facility] Address [address] [place] [address] Care Team Providers Care Structural Draftsman Name Role Phone Gus Booker MD Primary Care Provider [phone] Encounter Details Date Type Department Care Team [...] on file Legal Sex Female 3:03 AM ELECTRONICS WORKER Gender Identity Not on file Sexual [...] SYSTEM 08/19/2005 6:00 PM CDT us Joby Salter MD CHEMISTRY ORDERABLES Final R esult INTERFACE SYSTEM Refer to clinic/hospital department documented in this encounter Visit Diagnoses Diagnosis Malignant neoplasm of thyroid gland (CMS/HCC)- Primary Malignant neoplasm of thyroid gland documented in this encounter Care Teams Structural Draftsman Relationship Specialty Start Date End Date Gus Booker MD [address] [place] [phone] PCP - General Family Practice 03/19/15 documented as of this encounter
--- OUTSIDE RECORDS SUMMARY | 2025-03-09 13:37 | XMS_ITS | Encounter Summary ---
Author Organization [facility] Address [address] [place] [address] Care Team Providers Care Varnishing Machine Operator Name Role Phone Gus Booker MD Primary Care Provider [phone] Encounter Details Date Type Department Care Team (Latest Contact Info) Description 11/28/[address] 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
--- OUTSIDE RECORDS SUMMARY | 2025-03-09 13:37 | XMS_ITS | Encounter Summary ---
Author Organization [facility] Address [address] [place] [address] Care Team Providers Care Customer Sales Distributor Name Role Phone Gus Booker MD Primary Care Provider [phone] Encounter Details Date Type Department Care Team (Latest Contact Info) Description 01/30/[address] 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 Gender Identity Not on file Sexual Orientation [...] 3:26 PM CDT Report Available in [facility] Procedure Note 05/20/2008 Report Available in [facility] Rosa Jack MD MAMMO ORDERABLES Final Result documented in this encounter Visit Diagnoses Diagnosis Personal history of malignant neoplasm of large intestine Asymptomatic postmenopausal status (age-related) (natural) Acquired absence of organ, genital organs Family history of malignant neoplasm of breast documented in this encounter Care Teams Customer Sales Distributor Relationship Specialty Start Date End Date Gus Booker MD [address] [place] [address] PCP - General Family Practice 03/19/15 documented as of this encounter
--- OUTSIDE RECORDS SUMMARY | 2025-03-09 13:37 | XMS_ITS | Encounter Summary ---
Author Organization [facility] Address [address] [place] [address] Care Team Providers Care Truck Crane Operator Name Role Phone Gus Booker MD Primary Care Provider Encounter Details Date Type Department Care Team (Latest Contact Info) Description 08/13/2005 Outpatient Historical 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
--- OUTSIDE RECORDS SUMMARY | 2025-03-09 13:37 | XMS_ITS | Encounter Summary ---
Author Organization [facility] Address [address] [place] [address] Care Team Providers Care Wood Fence Installer Name Role Phone Gus Booker MD Primary Care Provider [phone] Encounter Details Date Type Department Care Team (Latest Contact Info) Description 07/28/2005 [facility]patient [facility] [address] [place] [address] Rosa Jack MD NO ADDRESS ON FILE Swelling, Mass, or Lump in Head and Neck (Primary Dx) Social History Tobacco Use Types Packs/Day Years Used Date Smoking Tobacco: Never Assessed Comments Unknown Sex and Gender Information Value Date Recorded Sex Assigned at Not on file Legal Sex Female 3:03 AM RAW SILK GRADER Gender Identity Not on file Sexual Orientation [...] by Provider, Historical on 03/07/2009 6:24 PM RAW SILK GRADER The patient returned for radioactive uptake measurement [...] neoplasia. Recommend thin-needle aspiration for histologic diagnosis. [facility] Dictated By: Ajith Ji M.D. Electronically Signed By: Ajith Ji M.D. Date Signed: 07/28/[address] [facility] Procedure Note Provider, Historical - 03/05/2009 07/28/2005 [...] Primary documented in this encounter Care Teams Wood Fence Installer Relationship Specialty Start Date End Date Gus Booker MD [address] [place] [phone] PCP - General Family Practice 03/19/15 documented as of this encounter
--- OUTSIDE RECORDS SUMMARY | 2025-03-09 13:37 | XMS_ITS | Encounter Summary ---
Author Organization [facility] Address [address] [place] [address] Care Team Providers Care Coil Rewind Machine Operator Name Role Phone Gus Booker MD Primary Care Provider [phone] Encounter Details Date Type Department Care Team (Latest Contact Info) Description 07/20/2005 Outpatient Historical [facility] Imaging Services [address] [place] [address] Rosa Jack MD NO ADDRESS ON FILE Unspecified Disorder of Thyroid (Primary Dx) Social History Tobacco Use Types Packs/Day Years Used Date Smoking Tobacco: Never Assessed Comments Unknown Sex and Gender Information Value Date Recorded Sex Assigned at Not on file Legal Sex Female 3:03 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 Correlation with nuclear medicine scan recommended. [facility] Dictated By: Archie Holloway M.D., Ph.D. Electronically Signed By: Archie Holloway M.D., Ph.D. Date Signed: 07/21/05 [facility] Procedure Note Provider, Historical - 03/05/2009 NECK [...] 1.5 cm. Correlation with nuclearmedicine scan recommended. [facility] Dictated By: Archie Holloway M.D., Ph.D. Electronically Signed By: Archie Holloway M.D., Ph.D. Date Signed: 07/21/05 [facility] Rosa Jack MD US ORDERABLES Final Result documented in this encounter Visit Diagnoses Diagnosis Unspecified disorder of thyroid- Primary documented in this encounter Care Teams Coil Rewind Machine Operator Relationship Specialty Start Date End Date Gus Booker MD [address] [place] [address] PCP - General Family Practice 03/19/15 documented as of this encounter
--- OUTSIDE RECORDS SUMMARY | 2025-03-09 13:37 | XMS_ITS | Encounter Summary ---
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 [facility] 1345 Dictated By: Chester Najera Electronically Signed By: Chester Najera Electronically Signed By: Abelardo Sams M.D. Date Signed: 08/04/05 [facility] Procedure Note Provider, Historical - 03/05/2009 ULTRASOUND [...] comfortable condition having tolerated the procedure well. [facility] 1345 Dictated By: Chester Najera Electronically Signed By: Chester Najera Electronically Signed By: Abelardo Sams M.D. Date Signed: 08/04/05 [facility] Rosa Jack MD ORDERABLES Final Result documented in this encounter Visit Diagnoses Diagnosis Malignant neoplasm of thyroid gland (CMS/HCC)- Primary Malignant neoplasm of thyroid gland documented in this encounter Care Teams Supervisor Tan Room Relationship Specialty Start Date End Date Gus Booker MD [address] [place] [phone] PCP - General Family Practice 03/19/15 documented as of this encounter
--- OUTSIDE RECORDS SUMMARY | 2025-03-09 13:37 | XMS_ITS | Encounter Summary ---
Author Organization [facility] Address [address] [place] [address] Care Team Providers Care Fws Faculty Assistant Name Role Phone Gus Booker MD Primary Care Provider [phone] Encounter Details Date Type Department Care Team (Late st Contact Info) Description 02/05/[address] [facility] Imaging [facility] [place] [address] [place] [address] Macho Jones MD NO ADDRESS ON FILE Social History Tobacco Use Types Packs/Day Years Used Date Smoking Tobacco: Never Assessed Comments No Sex and Gender Information Value Date Recorded Sex Assigned at Not on file Legal Sex Female 3:03 AM WOOD GRAINER Gender Identity Not on file Sexual Orientation [...] on filedocumented in this encounter Care Teams Fws Faculty Assistant Relationship Specialty Start Date End Date Gus Booker MD [address] [place] [address] PCP - General Family Practice 03/19/15 documented as of this encounter
--- OUTSIDE RECORDS SUMMARY | 2025-03-09 13:37 | XMS_ITS | Encounter Summary ---
Author Organization [facility] Address [address] [place] [address] Care Team Providers Care Getterer Name Role Phone Gus Booker MD Primary Care Provider [phone] Encounter Details Date Type Department Care Team [...] on file Legal Sex Female 3:03 AM NEGATIVE RETOUCHER Gender Identity Not on file Sexual Orientation [...] classified documented in this encounter Care Teams Getterer Relationship Specialty [place] [address] [place] [phone] PCP - General Family Practice 03/19/15 documented as of this encounter
--- OUTSIDE RECORDS SUMMARY | 2025-03-09 13:37 | XMS_ITS | Encounter Summary ---
Author Organization [facility] Address [address] Saldaña: [place] [address] Care Team Providers Care Business Segment Manager Name Role Phone Gus Booker MD Primary Care Provider [phone] Encounter Details Date Type Department Care Team (Late st Contact Info) Description 12/19/2001 Outpatient Historical Rosa Jack MD NO ADDRESS ON FILE Social History Tobacco Use Types Packs/Day Years Used Date Smoking Tobacco: Never Assessed Comments Unknown Sex and Gender Information Value Date Recorded Sex Assigned at Not on file Legal Sex Female 3:03 AM DRUG ENFORCEMENT ADMINISTRATION AGENT Gender Identity Not on file Sexual Orientation Not on file documented as of this encounter Plan of Treatment Not on file documented as of this encounter Visit Diagnoses Not on filedocumented in this encounter Care Teams Business Segment Manager Relationship Specialty Start Date End Date Gus Booker MD [address] [place] [phone] PCP - General Family Practice 03/19/15 documented as of this encounter
--- OUTSIDE RECORDS SUMMARY | 2025-03-09 13:37 | XMS_ITS | Encounter Summary ---
Author Organization [facility] Address [address] [place] [address] Care Team Providers Care Data Compiler Name Role Phone Gus Booker MD Primary Care Provider [phone] Encounter Details Date Type Department Care Team (Late st Contact Info) Description 12/22/2004 Outpatient Historical [facility] Breast [place] [address] 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
--- OUTSIDE RECORDS SUMMARY | 2025-03-09 13:37 | XMS_ITS | Encounter Summary ---
Author Organization [facility] Address [address] [place] [address] Care Team Providers Care Food Equipment Service Technician Name Role Phone Gus Booker MD Primary Care Provider [phone] Encounter Details Date Type Department Care Team (Late st Contact Info) Description 03/26/2008 [facility] [address] [place] [address] Macho Jones MD NO ADDRESS ON FILE Social History Tobacco Use Types Packs/Day Years Used Date Smoking Tobacco: Never Assessed Comments No Sex and Gender Information Value Date Recorded Sex Assigned at Not on file Legal Sex Female 3:03 AM SOUND CONTROLLER Gender Identity Not on file Sexual Orientation Not on file documented as of this encounter Plan of Treatment Not on file documented as of this encounter Procedures Procedure Name Priority Date/Time Associated Diagnosis Comments NM THYROID CA METS WB POST THER Routine 03/27/2008 9:15 AM SOUND CONTROLLER documented in this encounter Results * NM THYROID CA METS WB POST THER (03/27/2008 9:15 AM SOUND CONTROLLER) Anatomical Region Laterality Modality Neck Other 03/27/2008 9:15 AM SOUND CONTROLLER Narrative 03/28/2008 9:11 AM SOUND CONTROLLER Radionuclide Thyroid Carcinoma Metastasis Whole Body Imaging [...] on filedocumented in this encounter Care Teams Food Equipment Service Technician Relationship Specialty Start Date End Date Gus Booker MD [address] [place] [phone] PCP - General Family Practice 03/19/15 documented as of this encounter
--- OUTSIDE RECORDS SUMMARY | 2025-03-09 13:37 | XMS_ITS | Encounter Summary ---
Author Organization [facility] Address [address] [place] [address] Care Team Providers Care Stage Set Designer Name Role Phone Gus Booker MD Primary Care Provider [phone] Encounter Details Date Type Department Care Team (Latest Contact Info) Description 03/15/2000 Outpatient Historical [facility]3] Psychiatry[address] [place] [address] Sanjay Nunez MD NO ADDRESS ON FILE Major depressive disorder, recurrent episode, severe, without mention of psychotic behavior (CMS/HCC) (Primary Dx) Social History Tobacco Use Types Packs/Day Years Used Date Smoking Tobacco: Never Assessed Comments Unknown Sex and Gender Information Value Date Recorded Sex Assigned at Not on file Legal Sex Female 3:03 AM FUEL 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 Gender Identity Not on file Sexual Orientation Not on file documented as of this encounter Plan of Treatment Not on file documented as of this encounter Visit Diagnoses Diagnosis Major depressive disorder, recurrent episode, severe, without mention of psychotic behavior (CMS/HCC)- Primary Major depressive disorder, recurrent episode, severe, without mention of psychotic behavior documented in this encounter Care Teams Stage Set Designer Relationship Specialty Start Date End Date Gus Booker MD [address] [place] [phone] PCP - General Family Practice 03/19/15 documented as of this encounter
--- OUTSIDE RECORDS SUMMARY | 2025-03-09 13:37 | XMS_ITS | Encounter Summary ---
Author Organization [facility] Address [address] [place] [address] Care Team Providers Care Cisco Certified Network Professional Name Role Phone Gus Booker MD Primary Care Provider [phone] Encounter Details Date Type Department Care Team (Late st Contact Info) Description 05/11/2001 Outpatient Historical [facility] 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
--- OUTSIDE RECORDS SUMMARY | 2025-03-09 13:37 | XMS_ITS ---
Author Organization [facility] Address [address] [place] [address] Care Team Providers Care Union Laborer Name Role Phone Gus Booker MD Primary Care Provider [phone] Active Problems Problem Noted Date Diagnosed Date [...]
--- OUTSIDE RECORDS SUMMARY | 2025-03-09 13:37 | XMS_ITS | Encounter Summary ---
Author Organization [facility] Address [address] [place] [address] Care Team Providers Care Manager Retail Sales Name Role Phone Gus Booker MD Primary Care Provider [phone] Encounter Details Date Type Department Care Team (Late st Contact Info) Description 03/22/2008 Outpatient Historical [facility] Specialty Nursing Services [facility] [address] [place] [address] Macho Jones MD NO ADDRESS ON FILE Social History Tobacco Use Types Packs/Day Years Used Date Smoking Tobacco: Never Assessed Comments No Sex and Gender Information Value Date Recorded Sex Assigned at Not on file Legal Sex Female 3:03 AM PAIN MANAGEMENT PHYSICIAN Gender Identity Not on file Sexual Orientation Not on file documented as of this encounter Plan of Treatment Not on file documented as of this encounter Procedures Procedure Name Priority Date/Time Associated Diagnosis Comments THYROGLOBULIN, TUMOR MARKER Routine 03/29/2008 8:12 AM PAIN MANAGEMENT PHYSICIAN documented in this encounter Results * THYROGLOBULIN (03/29/2008 8:12 AM PAIN MANAGEMENT PHYSICIAN) THYROGLOBULIN Sent to Reference Lab [facility] Blood specimen (specimen) 03/29/2008 8:12 AM PAIN MANAGEMENT PHYSICIAN 03/29/2008 1:49 PM PAIN MANAGEMENT PHYSICIAN us Macho Jones MD CHEMISTRY ORDERABLES Final R esult INTERFACE SYSTEM Refer to clinic/hospital department [facility] CLIA# [id number] [address] [place] [address] documented in this encounter Visit Diagnoses Not on filedocumented in this encounter Care Teams Manager Retail Sales Relationship Specialty Start Date End Date Gus Booker MD [address] [place] [phone] PCP - General Family Practice 03/19/15 documented as of this encounter
--- OUTSIDE RECORDS SUMMARY | 2025-03-09 13:37 | XMS_ITS | Encounter Summary ---
Author Organization [facility] Address [address] [place] [address] Care Team Providers Care Ready Mix Truck Driver Name Role Phone Gus Booker MD Primary Care Provider [phone] Encounter Details Date Type Department Care Team (Latest Contact Info) Description 08/09/2005 Outpatient Historical [facility] Gen Spec Surg [place] [address] [place] [phone] Joby Slater MD NO ADDRESS ON FILE Malig Julio Thyroid (Primary Dx) Social History Tobacco Use Types Packs/Day Years Used Date Smoking Tobacco: Never Assessed Comments Unknown Sex and Gender Information Value Date Recorded Sex Assigned at Not on file Legal Sex Female 3:03 AM BUSINESS INTEGRATION MANAGER Gender Identity Not on file Sexual Orientation Not on file documented as of this encounter Plan of Treatment Not on file documented as of this encounter Visit Diagnoses Diagnosis Malig julio thyroid- Primary Malignant neoplasm of thyroid gland documented in this encounter Care Teams Ready Mix Truck Driver Relationship Specialty Start Date End Date Gus Booker MD [address] [place] [phone] PCP - General Family Practice 03/19/15 documented as of this encounter
--- OUTSIDE RECORDS SUMMARY | 2025-03-09 13:37 | XMS_ITS | Encounter Summary ---
Author Organization [facility] Address [address] [place] [address] Care Team Providers Care Fresh Meat Grader Name Role Phone Gus Booker MD Primary Care Provider [phone] Encounter Details Date Type Department Care Team (Late st Contact Info) Description 02/10/2007 Outpatient Historical [facility] [address] [place] [phone] Macho Jones MD NO ADDRESS ON FILE Social History Tobacco Use Types Packs/Day Years Used Date Smoking Tobacco: Never Assessed Comments Unknown Sex and Gender Information Value Date Recorded Sex Assigned at Not on file Legal Sex Female 3:03 AM CMA OR LPN Gender Identity Not on file Sexual Orientation Not on file documented as of this encounter Plan of Treatment Not on file documented as of this encounter Visit Diagnoses Not on filedocumented in this encounter Care Teams Fresh Meat Grader Relationship Specialty [place] [address] [place] [phone] PCP - General Family Practice 03/19/15 documented as of this encounter
--- OUTSIDE RECORDS SUMMARY | 2025-03-09 13:37 | XMS_ITS | Encounter Summary ---
Author Organization [facility] Address [address] [place] [address] Care Team Providers Care Appointment Coordinator Name Role Phone Gus Booker MD Primary Care Provider [phone] Encounter Details Date Type Department Care Team (Latest Contact Info) Description 08/09/2005 Outpatient Historical [facility] [address] [place] [address] Joby Slater MD NO ADDRESS ON FILE Pre-Operative Cardiovascular Examination (Primary Dx) Social History Tobacco Use Types Packs/Day Years Used Date Smoking Tobacco: Never Assessed Comments Unknown Sex and Gender Information Value Date Recorded Sex Assigned at Not on file Legal Sex Female 3:03 AM SMOKED MEAT PREPARER Gender Identity Not on file Sexual Orientation [...] INTERFACE SYSTEM Comment: As of 05 the [facility] has changed testing methods. The new reference range is 25-100 The old referance range was 38-126 AST 29 8 - 33 U/L INTERFACE SYSTEM Comment: [facility] 05 [facility] testing methods. [...] HEMATOLOGY ORDERABLES Final Result Performing Organization Address City/State/[facility] Co de Phone Number INTERFACE SYSTEM Refer to clinic/hospital department documented in this encounter Visit Diagnoses Diagnosis Pre-operative cardiovascular examination- Primary documented in this encounter Care Teams Appointment Coordinator Relationship Specialty Start Date End Date Gus Booker MD [facility] [place] [phone] PCP - General Family Practice 03/19/15 documented as of this encounter
--- OUTSIDE RECORDS SUMMARY | 2025-03-09 13:37 | XMS_ITS | Encounter Summary ---
Author Organization [facility] Address [address] [place] [address] Care Team Providers Care Slicing Machine Tender Name Role Phone Gus Booker MD Primary Care Provider [phone] Encounter Details Date Type Department Care Team (Latest Contact Info) Description 08/17/2005 Outpatient Historical [facility] [address] [place] [address] Joby Peña MD NO ADDRESS ON FILE Unspecified Chest Pain (Primary Dx) Social History Tobacco Use Types Packs/Day Years Used Date Smoking Tobacco: Never Assessed Comments Unknown Sex and Gender Information Value Date Recorded Sex Assigned at Not on file Legal Sex Female 3:03 AM IT HELP DESK TECHNICIAN Gender Identity Not on file Sexual [...] Goal INR 3.0; range 2.5 - 3.5 POST-[place] Goal INR 2.5; range 2.0 - 3.0 [...] ORDERABLES Franca l Result Performing Organization Address City/[facility] Co de Phone Number INTERFACE SYSTEM Refer [...] CHEMISTRY ORDERABLES Final Result Performing Organization Address City/[facility] Co de Phone Number INTERFACE SYSTEM Refer to clinic/hospital department documented in this encounter Visit Diagnoses Diagnosis Chest pain, unspecified- Primary documented in this encounter Care Teams Slicing Machine Tender Relationship Specialty Start Date End Date Gus Booker MD [address] [place] [phone] PCP - General Family Practice 03/19/15 documented as of this encounter
--- OUTSIDE RECORDS SUMMARY | 2025-03-09 13:37 | XMS_ITS | Encounter Summary ---
Author Organization [facility] Address [address] [place] [address] Care Team Providers Care Housekeeping Supervisor Name Role Phone Gus Booker MD Primary Care Provider [phone] Encounter Details Date Type Department Care Team (Late st Contact Info) Description 01/29/2007 Outpatient Historical [facility] Specialty Nursing Services [facility] [address] [place] [phone] Macho Jones MD NO ADDRESS ON FILE Social History Tobacco Use Types Packs/Day Years Used Date Smoking Tobacco: Never Assessed Comments Unknown Sex and Gender Information Value Date Recorded Sex Assigned at Not on file Legal Sex Female 3:03 AM DEVELOPER PROGRAMMER ANALYST Gender Identity Not on file Sexual [...] by Provider, Historical on 03/09/2009 7:01 PM DEVELOPER PROGRAMMER ANALYST The patient returned 11 days following radioiodine [...] Signed: 01/31/07 JAW us Macho Jones MD [place] ORDERABLES Edited INTERFACE SYSTEM Refer to clinic/hospital department documented in this encounter Visit Diagnoses Not on filedocumented in this encounter Care Teams Housekeeping Supervisor Relationship Specialty Start Date End Date Gus Booker MD [address] [place] [phone] PCP - General Family Practice 03/19/15 documented as of this encounter
--- OUTSIDE RECORDS SUMMARY | 2025-03-09 13:37 | XMS_ITS | Encounter Summary ---
Author Organization [facility] Address [address] [place] [address] Care Team Providers Care Clarity Specialists Name Role Phone Gus Booker MD Primary Care Provider [phone] Encounter Details Date Type Department Care Team (Late st Contact Info) Description 02/06/2008 Outpatient Historical [facility] [address] [facility] [address] [place] [address] Social History Tobacco Use Types Packs/Day Years Used Date Smoking Tobacco: Never Assessed Comments No Sex and Gender Information Value Date Recorded Sex Assigned at Not on file Legal Sex Female 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
--- OUTSIDE RECORDS SUMMARY | 2025-03-09 13:38 | XMS_ITS | Encounter Summary ---
Author Organization [facility] Address [address] [place] [address] Care Team Providers Care Contract Technical Writer Name Role Phone Gus Booker MD Primary Care Provider [phone] Reason for Referral * Outpatient Services (Routine) - Closed Specialty Diagnoses / Procedures Referred By Contac t Referred To Contact Radiology Diagnoses Encounter for screening mammogram for malignant neoplasm of breast Procedures MAMMO SCREEN BILAT W OR WO CAD Gus Booker MD [address] [facility] [place] [address] Phone: tel: fax: [facility] [address] [facility] [address] [place] [address] Phone: tel: fax: Referral ID Status Reason Start Date Expiration Date V isits Requested Visits Authorized [id number] Closed F MC TO SCHEDULE (SGF) 10/28/2016 11/28/2017 1 1 Encounter Details Date Type Department Care Team (Latest Contact Info) Description 10/28/2016 Ancillary Orders [facility] Pre-Registration [place] CALL TO MAKE APPOINTMENT ONLY [address] [place] [address] Gus Booker MD [address] [place] [address] Encounter for screening mammogram for malignant neoplasm of breast Social History Tobacco Use Types Packs/Day Years Used Date Smoking Tobacco: Never Smokeless Tobacco: Never Alcohol Use Standard Drinks/Week Comments No 0 (1 standard drink = 0.6 oz pur e alcohol) Comments No Sex and Gender Information Value Date Recorded Sex Assigned at Not on file Legal Sex Female 3:03 AM STEWARD/STEWARDESS THIRD Gender Identity Not on file Sexual Orientation [...] craniocaudal and medial to lateral magnified views. [id number] Narrative 11/15/2016 3:06 PM CDT Screening Mammogram [...] by the Computer Aided Detection System (CAD), [employer] ImageChecker, Version 8.3. us External Provider [facility] MAMMO ORDERABLES Final Res ult documented in this encounter Visit Diagnoses Diagnosis Encounter for screening mammogram for malignant neoplasm of breast Other screening mammogram Encounter for screening mammogram for malignant neoplasm of breast Other screening mammogram documented in this encounter Care Teams Contract Technical Writer Relationship Specialty Start Date End Date Gus Booker MD [address] [place] [phone] PCP - General Family Practice 03/19/15 documented as of this encounter
--- OUTSIDE RECORDS SUMMARY | 2025-03-09 13:38 | XMS_ITS | Encounter Summary ---
Author Organization [facility] Address [address] [place] [address] Care Team Providers Care Director Of [employer]ance [employer] Name Role Phone Gus Booker MD Primary Care Provider [phone] Encounter Details Date Type Department Care Team (Latest Contact Info) Description 10/13/2005 Outpatient Historical [facility] Gen Spec Surg [place] 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
--- OUTSIDE RECORDS SUMMARY | 2025-03-09 13:38 | XMS_ITS | Encounter Summary ---
Author Organization [facility] Address [address] [place] [address] Care Team Providers Care Line Inspector Name Role Phone Gus Booker MD Primary Care Provider [phone] Reason for Referral * Outpatient Services (Routine) - Closed Specialty Diagnoses / Procedures Referred By Contac t Referred To Contact Diagnoses Follow-up examination of abnormal mammogram Procedures MAMMO DIAGNOSTIC UNI LEFT W OR WO CAD MAMMO DIAG UNI LEFT 3D NUPUR W OR WO CAD MAMMO DIAGNOSTIC UNI LEFT W OR WO CAD Gus Booker MD [address] [place] [address] Phone: tel: fax: [facility] Pre-Registration [place] CALL TO MAKE APPOINTMENT ONLY [address] [place] [address] Phone: tel: fax: Referral ID Status Reason Start Date Expiration Date V isits Requested Visits Authorized [id number] Closed F MC TO SCHEDULE (SGF) 05/25/2017 06/25/2018 1 1 UCT SUPPORT REPRESENTATIVE Encounter Details Date Type Department Care Team (Latest Contact Info) Description 06/10/2017 Ancillary Orders [facility] CALL TO MAKE APPOINTMENT ONLY [address] [place] [address] Gus Booker MD [address] [place] [address] Follow-up examination of abnormal mammogram Social History Tobacco Use Types Packs/Day Years Used Date Smoking Tobacco: Never Smokeless Tobacco: Never Alcohol Use Standard Drinks/Week Comments No 0 (1 standard drink = 0.6 oz pur e alcohol) Comments No Sex and Gender Information Value Date Recorded Sex Assigned at Not on file Legal Sex Female 3:03 AM PRODUCT SUPPORT REPRESENTATIVE Gender Identity Not on file Sexual Orientation Not on file Occupation Industry Job Start Date Job End Date Not on file Not on file Not on file Not on file documented as of this encounter Plan of Treatment Not on file documented as of this encounter Results * (ABNORMAL) MAMMO DIAGNOSTIC UNI LEFT W OR WO CAD (06/10/2017 2:19 PM PRODUCT SUPPORT REPRESENTATIVE) Anatomical Region Laterality Modality Breast Left Mammography 06/10/2017 2:19 PM PRODUCT SUPPORT REPRESENTATIVE Narrative 06/13/2017 11:02 AM PRODUCT SUPPORT REPRESENTATIVE Left Diagnostic Mammogram, 06/10/2017: The patient had [...] by the Computer Aided Detection System (CAD), [employer] ImageChecker, Version 8.3. The patient was given a verbal and written report. Impression: No significant change is seen on the left status post benign stereotactic biopsy. I would recommend bilateral follow-up diagnostic mammogram in 6 months' time. [id number] us External Provider [facility] MAMMO ORDERABLES Final Res ult documented in this encounter Visit Diagnoses Diagnosis Follow-up examination of abnormal mammogram Abnormal mammogram, unspecified Follow-up examination of abnormal mammogram Abnormal mammogram, unspecified documented in this encounter Care Teams Line Inspector Relationship Specialty Start Date End Date Gus Booker MD [address] [place] [phone] PCP - General Family Practice 03/19/15 documented as of this encounter
--- OUTSIDE RECORDS SUMMARY | 2025-03-09 13:38 | XMS_ITS | Encounter Summary ---
Author Organization [facility] Address [address] [place] [address] Care Team Providers Care Staff Writer Name Role Phone Gus Booker MD Primary Care Provider [phone] Reason for Referral * Outpatient Services (Routine) - Closed Specialty Diagnoses / Procedures Referred By Contac t Referred To Contact Diagnoses Abnormal EKG Procedures NM MYOCARD PERF IMAG SPECT MULT Gus Booker MD [address] [place] [address] Phone: tel: fax: [facility] Pre-Registration [place] CALL TO MAKE APPOINTMENT ONLY [address] [place] [address] Phone: tel: fax: Referral ID Status Reason Start Date Expiration Date V isits Requested Visits Authorized [id number] Closed F MC TO SCHEDULE (SGF) 04/03/2015 05/03/2016 1 1 GRINDER Encounter Details Date Type Department Care Team (Latest Contact Info) Description 04/03/2015 Ancillary Orders [facility] Pre-Registration [place] CALL TO MAKE APPOINTMENT ONLY [address] [place] [address] Gus Booker MD [address] [place] [address] Abnormal EKG (Primary Dx) Social History Tobacco Use Types Packs/Day Years Used Date Smoking Tobacco: Never Smokeless Tobacco: Never Alcohol Use Standard Drinks/Week Comments No 0 (1 standard drink = 0.6 oz pur e alcohol) Comments No Sex and Gender Information Value Date Recorded Sex Assigned at Not on file Legal Sex Female 3:03 AM TAP GRINDER Gender Identity Not on file Sexual Orientation Not on file Occupation Industry Job Start Date Job End Date Not on file Not on file Not on file Not on file documented as of this encounter Plan of Treatment Not on file documented as of this encounter Results * NM MYOCARD PERF IMAG SPECT MULT (04/15/2015 9:59 AM TAP GRINDER) EJECTION FRACTION 84 50 - 65 percent INTERFACE SYSTEM Risk Stratification INTERFACE SYSTEM 04/15/2015 7:58 AM TAP GRINDER Narrative INTERFACE SYSTEM - 04/15/2015 10:32 AM TAP GRINDER Rest/Stress Single Isotope SPECT Myocardial Perfusion Imaging [...] available for direct comparison. Dr. Sonia MD, [facility] This laboratory has been accredited by the [...] available for direct comparison. Dr. Sonia MD, [facility] This laboratory has been accredited by the Intersocietal Commission for the Accreditation of Nuclear Medicine Laboratories (ICANL). External Provider [facility] NM ORDERABLES Final Resu lt INTERFACE SYSTEM Refer to clinic/hospital department documented in this encounter Visit Diagnoses Diagnosis Abnormal EKG- Primary Nonspecific abnormal electrocardiogram (ECG) (EKG) Abnormal EKG Nonspecific abnormal electrocardiogram (ECG) (EKG) documented in this encounter Care Teams Staff Writer Relationship Specialty Start Date End Date Gus Booker MD [address] [place] [phone] PCP - General Family Practice 03/19/15 documented as of this encounter
--- OUTSIDE RECORDS SUMMARY | 2025-03-09 13:38 | XMS_ITS | Encounter Summary ---
Author Organization [facility] Address [address] [place] [address] Care Team Providers Care Vacuum Technician Name Role Phone uGs Booker MD Primary Care Provider [phone] Encounter Details Date Type Department Care Team (Late st Contact Info) Description 05/18/2006 Outpatient [facility]- [place] [id number] [facility] [address] [place] [address] James Raman MD NO ADDRESS ON FILE Benign Julio Lg Bowel (Primary Dx); Other Symptoms Involving Digestive System; Acute Gastritis; Abdominal Pain, Epigastric Social History Tobacco Use Types Packs/Day Years Used Date Smoking Tobacco: Never Assessed Comments Unknown Sex and Gender Information Value Date Recorded Sex Assigned at Not on file Legal Sex Female 3:03 AM REDRAWER Gender Identity Not on file Sexual Orientation [...] epigastric documented in this encounter Care Teams Vacuum Technician Relationship Specialty Start Date End Date Gus Booker MD [address] [place] [phone] PCP - General Family Practice 03/19/15 documented as of this encounter
--- OUTSIDE RECORDS SUMMARY | 2025-03-09 13:38 | XMS_ITS | Encounter Summary ---
Author Organization [facility] Address [address] [place] [address] Care Team Providers Care Telephone Appointment Clerk Name Role Phone Gus Booker MD Primary Care Provider [phone] Encounter Details Date Type Department Care Team (Latest Contact Info) Description 05/23/2006 Outpatient Historical [facility] Imaging Services [address] [place] [phone] Rosa Jack MD NO ADDRESS ON FILE Unspecified Disorder of Liver (Primary Dx) Social History Tobacco Use Types Packs/Day Years Used Date Smoking Tobacco: Never Assessed Comments Unknown Sex and Gender Information Value Date Recorded Sex Assigned at Not on file Legal 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
--- OUTSIDE RECORDS SUMMARY | 2025-03-09 13:38 | XMS_ITS | Encounter Summary ---
Author Organization [facility] Address [address] [place] [address] Care Team Providers Care Sales Team Leader Name Role Phone Gus Booker MD Primary Care Provider [phone] Encounter Details Date Type Department Care Team (Latest Contact Info) Description 05/25/2017 Ancillary Orders [facility] Pre-Registration [place] CALL TO MAKE APPOINTMENT ONLY [address] [place] [address] Gus Booker MD [address] [place] [address] Follow-up examination of abnormal mammogram Social History Tobacco Use Types Packs/Day Years Used Date Smoking Tobacco: Never Smokeless Tobacco: Never Alcohol Use Standard Drinks/Week Comments No 0 (1 standard drink = 0.6 oz pur e alcohol) Comments No Sex and Gender Information Value Date Recorded Sex Assigned at Not on file Legal Sex Female 3:03 AM PROJECTION ENGINEER Gender Identity Not on file Sexual [...] unspecified documented in this encounter Care Teams Sales Team Leader Relationship Specialty Start Date End Date Gus Booker MD [address] [facility] [place] [address] PCP - General Family Practice 03/19/15 documented as of this encounter
--- OUTSIDE RECORDS SUMMARY | 2025-03-09 13:38 | XMS_ITS | Encounter Summary ---
Author Organization [facility] Address [address] [place] [address] Care Team Providers Care Television Writer Name Role Phone Gus Booker MD Primary Care Provider [phone] Reason for Referral * Outpatient Services (Routine) - Closed Specialty Diagnoses / Procedures Referred By Contsharon t Referred To Contact Diagnoses Inconclusive mammogram Procedures MAMMO BREAST US LEFT LTD Gus Booker MD [address] [place] [phone] Phone: tel: fax: [facility] Pre-Registration [place] CALL TO MAKE APPOINTMENT ONLY [address] [place] [address] Phone: tel: fax: Referral ID Status Reason Start Date Expiration Date Visits Re quested Visits Authorized [id number] Closed 11/15/2016 12/16/2017 1 1 * Outpatient Services (Routine) - Closed Specialty Diagnoses / Procedures Referred By Contac t Referred To Contact Diagnoses Inconclusive mammogram Procedures MAMMO DIAGNOSTIC UNI LEFT W OR WO CAD Gus Booker MD [address] [place] [phone] Phone: tel: fax: [facility] Pre-Registration [place] CALL TO MAKE APPOINTMENT ONLY [address] [place] [address] Phone: tel: fax: Referral ID Status Reason Start Date Expiration Date Visits Re quested Visits Authorized [id number] Closed 11/15/2016 12/16/2017 1 1 Encounter Details Date Type Department Care Team (Latest Contact Info) Description 11/15/2016 Ancillary Orders [facility] [address] [place] [address] Gus Booker MD [address] [place] [address] Inconclusive mammogram Social History Tobacco Use Types Packs/Day Years Used Date Smoking Tobacco: Never Smokeless Tobacco: Never Alcohol Use Standard Drinks/Week Comments No 0 (1 standard drink = 0.6 oz pur e alcohol) Comments No Sex and Gender Information Value Date Recorded Sex Assigned at Not on file Legal Sex Female 3:03 AM TROUBLE DISPATCHER Gender Identity Not on file Sexual Orientation [...] by the Computer Aided Detection System (CAD), Cert[employer] Data [employer] ImageBoundaryMedicalcker, Version 8.3. The previously identified lateral left [...] The patient was given a result/recommendation letter. [id number] Procedure Note Giovany Huber MD - 11/17/2016 MAMMO DIAGNOSTIC UNI LEFT W OR WO CAD, MAMMO BREAST US LEFT LTD INDICATION FOR EXAMINATION: Inconclusive mammogram COMPARISONS: Mammogram dated 11/12/2016, 10/29/2015, 08/29/2014, 08/23/2013, 07/13/2012, 05/13/2011, 04/14/2010, 02/19/2009, 02/06/2009, 02/06/2008, 01/10/2007. BREAST COMPOSITION: Scattered areas of fibroglandular density. FINDINGS: This digital mammogram was also analyzed by the Computer Aided Detection System (CAD), Certify Data Systems ImageChecker, Version 8.3. The previously identified lateral [...] The patient was given a result/recommendation letter. [id number] us External Provider [facility] MAMMO ORDERABLES Final Res ult * (ABNORMAL) [...] by the Computer Aided Detection System (CAD), Certify Data Systems ImageBoundaryMedicalcker, Version 8.3. The previously identified lateral left [...] The patient was given a result/recommendation letter. [id number] Procedure Note Giovany Huber MD - 11/17/2016 MAMMO DIAGNOSTIC UNI LEFT W OR WO CAD, MAMMO BREAST US LEFT LTD INDICATION FOR EXAMINATION: Inconclusive mammogram COMPARISONS: Mammogram dated 11/12/2016, 10/29/2015, 08/29/2014, 08/23/2013, 07/13/2012, 05/13/2011, 04/14/2010, 02/19/2009, 02/06/2009, 02/06/2008, 01/10/2007. BREAST COMPOSITION: Scattered areas of fibroglandular density. FINDINGS: This digital mammogram was also analyzed by the Computer Aided Detection System (CAD), Pneumoflex Systemscker, Version 8.3. The previously identified lateral left [...] The patient was given a result/recommendation letter. [id number] us External Provider [facility] MAMMO ORDERABLES Final Res ult documented in this encounter Visit Diagnoses Diagnosis Inconclusive mammogram Inconclusive mammogram Inconclusive mammogram documented in this encounter Care Teams Television Writer Relationship Specialty Start Date End Date Gus Booker MD [address] [place] [address] PCP - General Family Practice 03/19/15 documented as of this encounter
--- OUTSIDE RECORDS SUMMARY | 2025-03-09 13:38 | XMS_ITS | Encounter Summary ---
Author Organization [facility] Address [address] [place] [address] Care Team Providers Care Adjuster Arbitrator Name Role Phone Gus Booker MD Primary Care Provider [phone] Reason for Referral * Radiology Services (Routine) - Closed Specialty Diagnoses / Procedures Referred By Contac t Referred To Contact Radiology Diagnoses Inconclusive mammography Procedures MAMMO DIAG UNI RIGHT 3D NUPUR W OR WO CAD CHG DIAGNOSTIC MAMMOGRAPHY COMPUTER-AIDED DETCJ UNI CHG DIGITAL BREAST TOMOSYNTHESIS UNILATERAL Gus Booker MD [address] [place] [address] Phone: tel: fax: [facility] [address] [address] Phone: tel: fax: Referral ID Status Reason Start Date Expiration Date Visits Requested Visits Authorized [id number] Closed Performing Department To Schedule (SGF) 03/12/2019 04/11/2020 1 1 ING TOBACCO PACKING MACHINE HAND Encounter Details Date Type Department Care Team (Latest Contact Info) Description 03/12/2019 Ancillary Orders [facility] [address] [address] Gus Booker MD [address] [place] [address] Inconclusive mammography Social History Tobacco Use Types Packs/Day Years Used Date Smoking Tobacco: Never Smokeless Tobacco: Never Alcohol Use Standard Drinks/Week Comments No 0 (1 standard drink = 0.6 oz pur e alcohol) Comments No Sex and Gender Information Value Date Recorded Sex Assigned at Not on file Legal Sex Female 3:03 AM SMOKING TOBACCO PACKING MACHINE HAND Gender Identity Not on file Sexual Orientation Not on file Occupation Industry Job Start Date Job End Date Not on file Not on file Not on file Not on file documented as of this encounter Plan of Treatment Not on file documented as of this encounter Results * MAMMO DIAG UNI RIGHT 3D NUPUR W OR WO CAD (03/21/2019 2:15 PM SMOKING TOBACCO PACKING MACHINE HAND) Anatomical Region Laterality Modality Breast Right Mammography 03/21/2019 1:56 PM SMOKING TOBACCO PACKING MACHINE HAND Impressions 03/21/2019 3:03 PM SMOKING TOBACCO PACKING MACHINE HAND : The asymmetry does not persist as changed or suspicious and was probably made to appear so by summation artifact. I would recommend routine screening mammogram in one year. Patient received a result/recommendation letter. [id number] Narrative 03/21/2019 3:03 PM SMOKING TOBACCO PACKING MACHINE HAND Right diagnostic mammogram 3-D spot nupur CC [...] us Mammography Self Referral Provider MD TRISH SNWO Final Result documented in this encounter Visit Diagnoses Diagnosis Inconclusive mammography Inconclusive mammogram Inconclusive mammography Inconclusive mammogram documented in this encounter Care Teams Adjuster Arbitrator Relationship Specialty Start Date End Date Gus Booker MD [address] [place] [phone] PCP - General Family Practice 03/19/15 documented as of this encounter
--- OUTSIDE RECORDS SUMMARY | 2025-03-09 13:38 | XMS_ITS | Encounter Summary ---
Author Organization 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 KYLE/[email or web address] - uploaded from [employer] - Narrative Procedure Note Evangelina Aragon MD [...] Please see above. Fred - uploaded from [employer] - us Ty Naqvi MD DIAGNOSTIC IMAGING ORDERABLE S Final Result documented in this encounter Visit Diagnoses Diagnosis Shoulder pain, right- Primary Pain in joint, shoulder region Shoulder pain, right Pain in joint, shoulder region documented in this encounter Care Teams College Admissions Counselor Relationship Specialty Start Date End Date Gus Booker MD [address] [place] [phone] PCP - General Family Practice 03/19/15 documented as of this encounter
--- OUTSIDE RECORDS SUMMARY | 2025-03-09 13:38 | XMS_ITS | Encounter Summary ---
Author Organization [facility] Address [address] [place] [address] Care Team Providers Care Matrix Inspector Name Role Phone Gus Booker MD Primary Care Provider [phone] Encounter Details Date Type Department Care Team (Latest Contact Info) Description 01/10/2007 Outpatient Historical [facility] [place] [address] [facility] [address] [place] [address] Mayur Vance MD NO ADDRESS ON FILE Other Screening Mammogram (Primary Dx) Social History Tobacco Use Types Packs/Day Years Used Date Smoking Tobacco: Never Assessed Comments Unknown Sex and Gender Information Value Date Recorded Sex Assigned at Not on file Legal Sex Female 3:03 AM ALL AROUND PATTERNMAKER Gender Identity Not on file Sexual Orientation Not on file documented as of this encounter Plan of Treatment Not on file documented as of this encounter Visit Diagnoses Diagnosis Other screening mammogram- Primary documented in this encounter Care Teams Matrix Inspector Relationship Specialty Start Date End Date Gus Booker MD [address] [place] [phone] PCP - General Family Practice 03/19/15 documented as of this encounter
--- OUTSIDE RECORDS SUMMARY | 2025-03-09 13:38 | XMS_ITS | Encounter Summary ---
Author Organization [facility] Address [address] [place] [address] Care Team Providers Care Gear Hobber Set Up Operator Name Role Phone Gus Booker MD Primary Care Provider [phone] Encounter Details Date Type Department Care Team [...] file Legal Sex Female 3:03 AM TRAIN CALLER Gender Identity Not on file Sexual Orientation Not on file documented as of this encounter Plan of Treatment Not on file documented as of this encounter Visit Diagnoses Diagnosis Abnormal mammogram, unspecified- Primary documented in this encounter Care Teams Gear Hobber Set Up Operator Relationship Specialty [place] [address] [place] [phone] PCP - General Family Practice 03/19/15 documented as of this encounter
--- OUTSIDE RECORDS SUMMARY | 2025-03-09 13:38 | XMS_ITS | Encounter Summary ---
Author Organization [facility] Address [address] [place] [address] Care Team Providers Care Golf Club Maker Name Role Phone Gus Booker MD Primary Care Provider [phone] Encounter Details Date Type Department Care Team (Latest Contact Info) Description 04/04/2006 Outpatient Historical [facility] [facility] R[address] [place] [address] Rosa Jack MD NO ADDRESS ON FILE Unspecified Disorder of Liver (Primary Dx) Social History Tobacco Use Types Packs/Day Years Used Date Smoking Tobacco: Never Assessed Comments Unknown Sex and Gender Information Value Date Recorded Sex Assigned at Not on file Legal Sex Female 3:03 AM FIRST LINE SUPERVISOR Gender Identity Not on file Sexual Orientation Not on file documented as of this encounter Plan of Treatment Not on file documented as of this encounter Procedures Procedure Name Priority Date/Time Associated Diagnosis Comments CT ABDOMEN PELVIS W CONTRAST Routine 04/04/2006 12:01 AM FIRST LINE SUPERVISOR documented in this encounter Results * CT ABDOMEN PELVIS W CONTRAST (04/04/2006 12:01 AM FIRST LINE SUPERVISOR) Anatomical Region Laterality Modality Abdomen Other 04/04/2006 12:0 1 AM FIRST LINE SUPERVISOR Narrative 04/04/2006 12:01 AM FIRST LINE SUPERVISOR ABDOMINAL AND PELVIC CT WITH CONTRAST [...] Primary documented in this encounter Care Teams Golf Club Maker Relationship Specialty Start Date End Date Gus Booker MD [address] [place] [phone] PCP - General Family Practice 03/19/15 documented as of this encounter
--- OUTSIDE RECORDS SUMMARY | 2025-03-09 13:38 | XMS_ITS | Encounter Summary ---
Author Organization [facility] Address [address] [place] [address] Care Team Providers Care Visual Basic Programmer Name Role Phone Gus Booker MD Primary Care Provider [phone] Reason for Referral * Outpatient Services (Routine) - Closed Specialty Diagnoses / Procedures Referred By Destiney johnson Referred To Contact Diagnoses RUQ pain RLQ abdominal pain Procedures CT ABDOMEN PELVIS W CONTRAST Rosa Jack MD NO ADDRESS ON FILE Referral ID Status Reason Start Date Expiration Date Visits Re quested Visits Authorized [id number] Closed 05/11/2011 05/10/2012 1 1 MENT INSTALLER Encounter Details Date Type Department Care Team (Latest Contact Info) Description 05/11/2011 Ancillary Orders [facility] Pre-Registration [place] CALL TO MAKE APPOINTMENT ONLY [address] [place] [phone] Rosa Jack MD NO ADDRESS ON FILE RUQ pain; RLQ abdominal pain Social History Tobacco Use Types Packs/Day Years Used Date Smoking Tobacco: Never Smokeless Tobacco: Never Alcohol Use Standard Drinks/Week Comments No 0 (1 standard drink = 0.6 oz pur e alcohol) Comments No Sex and Gender Information Value Date Recorded Sex Assigned at Not on file Legal Sex Female 3:03 AM ARMAMENT INSTALLER Gender Identity Not on file Sexual Orientation Not on file documented as of this encounter Plan of Treatment Not on file documented as of this encounter Results * CT ABDOMEN PELVIS W CONTRAST (05/12/2011 4:25 PM ARMAMENT INSTALLER) Anatomical Region Laterality Modality Abdomen Computed Tomogra phy 05/12/2011 4:05 PM ARMAMENT INSTALLER Narrative 05/17/2011 6:32 PM ARMAMENT INSTALLER Exam: CT ABDOMEN PELVIS W CONTRAST Date/Time [...] for diverticulitis. [email or web address] [id number] - uploaded from [employer] Scribe - Procedure Note Archie Holloway MD - 05/17/2011 Exam: CT ABDOMEN PELVIS W CONTRAST Date/Time of Exam: May 12, 2011 04:25:00 PM Reason For Exam: ABDOMINAL PAIN, RIGHT UPPER QUADRANT. Technique: Examination consists of a helical CT scan of the abdomen and pelvis performed with IV and oral contrast on a [employer] [address]. A total of [...] for diverticulitis. [email or web address] [id number] - uploaded from [employer] - Rosa Jack MD CT ORDERABLES Final Result documented in this encounter Visit Diagnoses Diagnosis RUQ pain Abdominal pain, right upper quadrant RLQ abdominal pain Abdominal pain, right lower quadrant RUQ pain Abdominal pain, right upper quadrant RLQ abdominal pain Abdominal pain, right lower quadrant documented in this encounter Care Teams Visual Basic Programmer Relationship Specialty Start Date End Date Gus Booker MD [address] [place] [phone] PCP - General Family Practice 03/19/15 documented as of this encounter
--- OUTSIDE RECORDS SUMMARY | 2025-03-09 13:38 | XMS_ITS | Encounter Summary ---
Author Organization [facility] Address [address] [place] [address] Care Team Providers Care Foreign Trade Teacher Name Role Phone Gus Booker MD Primary Care Provider [phone] Encounter Details Date Type Department Care Team (Latest Contact Info) Description 02/11/[address] [facility] [address] [facility] [address] [place] [address] Rosa Jack MD NO ADDRESS ON FILE Other (Abnormal) Findings on Radiological Examination of Breast Social History Tobacco Use Types Packs/Day Years Used Date Smoking Tobacco: Never Assessed Comments No Sex and Gender Information Value Date Recorded Sex Assigned at Not on file Legal Sex Female 3:03 AM DIAMOND CUTTER Gender Identity Not on file Sexual Orientation Not on file documented as of this encounter Plan of Treatment Not on file documented as of this encounter Results * MAMMO DIGITAL DIAG UNI LEFT (02/19/2009 1:38 PM DIAMOND CUTTER) Anatomical Region Laterality Modality Breast Left Mammography Narrative 02/19/2009 3:57 PM DIAMOND CUTTER LEFT DIGITAL ADDITIONAL VIEWS AND RIGHT BREAST [...] by the Computer Aided Detection System (CAD), [employer] Telecommunicationer, Version 8.3. RIGHT BREAST ULTRASOUND: The nodule [...] ultrasound exam, the patient indicated to the histotechnologist that she had severe bilateral breast pain. [...] analyzed by the Computer Aided DetectionSystem (CAD), [employer] ImageIntelligentMDxcker, Version 8.3. RIGHT BREAST ULTRASOUND: The nodule [...] breast documented in this encounter Care Teams Foreign Trade Teacher Relationship Specialty Start Date End Date Gus Booker MD [address] [place] [address] PCP - General Family Practice 03/19/15 documented as of this encounter
--- OUTSIDE RECORDS SUMMARY | 2025-03-09 13:38 | XMS_ITS | Encounter Summary ---
Author Organization [facility] Address [address] [place] [address] Care Team Providers Care Computer Engineer Name Role Phone Gus Booker MD Primary Care Provider [phone] Encounter Details Date Type Department Care Team (Late st Contact Info) Description 05/16/2017 Ancillary Orders [facility] Pre-Registration [place] CALL TO MAKE APPOINTMENT ONLY [address] [place] [phone] Gus Booker MD [address] [place] [address] Social History Tobacco Use Types Packs/Day Years Used Date Smoking Tobacco: Never Smokeless Tobacco: Never Alcohol Use Standard Drinks/Week Comments No 0 (1 standard drink = 0.6 oz pur e alcohol) Comments No Sex and Gender Information Value Date Recorded Sex Assigned at Not on file Legal Sex Female 3:03 AM IN SCHOOL SUSPENSION AIDE Gender Identity Not on file Sexual Orientation Not on file Occupation Industry Job Start Date Job End Date Not on file Not on file Not on file Not on file documented as of this encounter Plan of Treatment Not on file documented as of this encounter Visit Diagnoses Not on filedocumented in this encounter Care Teams Computer Engineer Relationship Specialty Start Date End Date Gus Booker MD [address] [place] [phone] PCP - General Family Practice 03/19/15 documented as of this encounter
--- OUTSIDE RECORDS SUMMARY | 2025-03-09 13:38 | XMS_ITS | Encounter Summary ---
Author Organization [facility] Address [address] [place] [address] Care Team Providers Care Continuous Churn Buttermaker Name Role Phone Gus Booker MD Primary Care Provider [phone] Encounter Details Date Type Department Care Team (Latest Contact Info) Description 01/21/2009 Ancillary Orders [facility] Cardi[facility] Services [address] [place] [address] [place] [address] Rosa Jack MD NO ADDRESS ON FILE Pain in Soft Tissues of Limb; Swelling of Limb; Decreased Pedal Pulses Social History Tobacco Use Types Packs/Day Years Used Date Smoking Tobacco: Never Assessed Comments No Sex and Gender Information Value Date Recorded Sex Assigned at Not on file Legal Sex Female 3:03 AM REGIONAL ENGAGEMENT CONSULTANT Gender Identity Not on file Sexual [...] system documented in this encounter Care Teams Continuous Churn Buttermaker Relationship Specialty Start Date End Date Gus Booker MD [address] [place] [address] PCP - General Family Practice 03/19/15 documented as of this encounter
--- OUTSIDE RECORDS SUMMARY | 2025-03-09 13:38 | XMS_ITS | Encounter Summary ---
Author Organization [facility] Address [address] [place] [address] Care Team Providers Care Bridge Toll Collector Name Role Phone Gus Booker MD Primary Care Provider Encounter Details Date Type Department Care Team (Late st Contact Info) Description 11/10/2011 Ancillary Orders [facility] Orthopedics- [address] [place] [address] Ajith Vann MD [address] [place] [phone] Pain Social History Tobacco Use Types Packs/Day Years Used Date Smoking Tobacco: Never Smokeless Tobacco: Never Alcohol Use Standard Drinks/Week Comments No 0 (1 standard drink = 0.6 oz pur e alcohol) Comments No Sex and Gender Information Value Date Recorded Sex Assigned at Not on file Legal Sex Female 3:03 AM DEHORNER Gender Identity Not on file Sexual Orientation [...] pain documented in this encounter Care Teams Bridge Toll Collector Relationship Specialty Start Date End Date Gus Booker MD [address] [place] [phone] PCP - General Family Practice 03/19/15 documented as of this encounter
--- OUTSIDE RECORDS SUMMARY | 2025-03-09 13:38 | XMS_ITS | Encounter Summary ---
Author Organization [facility] Address [address] [place] [address] Care Team Providers Care Rice Dryer Mechanic Name Role Phone Gus Booker MD Primary Care Provider [phone] Reason for Referral * Outpatient Services (Routine) - Closed Specialty Diagnoses / Procedures Referred By Contac t Referred To Contact Radiology Diagnoses Abnormal findings on diagnostic imaging of breast Procedures MAMMO POST US/STEREO GUIDED PROCEDURE LT Gus Booker MD [address] [place] [address] Phone: tel: fax: [facility] [address] [address] Phone: tel: fax: Referral ID Status Reason Start Date Expiration Date Visits Re quested Visits Authorized [id number] Closed 11/17/2016 12/18/2017 1 1 Electronically signed by [facility], External Provider at 11/17/2016 3:30 PM CDT * Outpatient Services (Routine) - Closed Specialty Diagnoses / Procedures Referred By Contac t Referred To Contact Radiology Diagnoses Abnormal findings on diagnostic imaging of breast Procedures MAMMO STEREOTACTIC BREAST BX LT Gus Booker MD [address] [place] [address] Phone: tel: fax: [facility] [address] [facility] [address] [place] [address] Phone: tel: fax: Referral ID Status Reason Start Date Expiration Date Visits Re quested Visits Authorized [id number] Closed 11/17/2016 12/18/2017 1 1 Electronically signed by [facility], External Provider at 11/17/2016 3:29 PM CDT Encounter Details Date Type Department Care Team (Late st Contact Info) Description 11/17/2016 Ancillary Orders [facility] [address] [facility] [address] [place] [address] Gus Booker MD [address] [place] [address] Abnormal findings on diagnostic imaging of breast Social History Tobacco Use Types Packs/Day Years Used Date Smoking Tobacco: Never Smokeless Tobacco: Never Alcohol Use Standard Drinks/Week Comments No 0 (1 standard drink = 0.6 oz pur e alcohol) Comments No Sex and Gender Information Value Date Recorded Sex Assigned at Not on file Legal Sex Female 3:03 AM CUSTOMER FIELD REPRESENTATIVE Gender Identity Not on file Sexual [...] Diagnostic left breast mammogram in six months. [id number] Narrative 11/30/2016 12:44 PM CDT MAMMO STEREOTACTIC [...] no calcifications present. CLIP PLACEMENT: A [place] marker was placed at the biopsy site. The probe was removed. Hemostasis was achieved. Skin was closed and dressed in the usual fashion. The patient tolerated the procedure well. ASSESSMENT: Pathology pending. [id number] Procedure Note Giovany Huber MD - 11/30/2016 [...] no calcifications present. CLIP PLACEMENT: A [place] marker was placed at the biopsy site. The probe was removed. Hemostasis was achieved. Skin was closed and dressed in the usual fashion. The patient tolerated the procedure well. ASSESSMENT: Pathology pending. [id number] us External Provider [facility] MAMMO ORDERABLES Edited Re sult - [...] Diagnostic left breast mammogram in six months. [id number] Narrative 11/30/2016 12:44 PM CDT MAMMO STEREOTACTIC [...] no calcifications present. CLIP PLACEMENT: A [place] marker was placed at the biopsy site. The probe was removed. Hemostasis was achieved. Skin was closed and dressed in the usual fashion. The patient tolerated the procedure well. ASSESSMENT: Pathology pending. [id number] Procedure Note Giovany Huber MD - 11/30/2016 [...] no calcifications present. CLIP PLACEMENT: A [place] marker was placed at the biopsy site. The probe was removed. Hemostasis was achieved. Skin was closed and dressed in the usual fashion. The patient tolerated the procedure well. ASSESSMENT: Pathology pending. [id number] External Provider [facility] MAMMO ORDERABLES Edited Re sult - [...] breast documented in this encounter Care Teams Rice Dryer Mechanic Relationship Specialty Start Date End Date Gus Booker MD [address] [place] [phone] PCP - General Family Practice 03/19/15 documented as of this encounter
--- OUTSIDE RECORDS SUMMARY | 2025-03-09 13:38 | XMS_ITS | Encounter Summary ---
Author Organization [facility] Address [address] [place] [address] Care Team Providers Care Senior Applications Architect Name Role Phone Gus Booker MD Primary Care Provider [phone] Reason for Referral * Outpatient Services (Routine) - Closed Specialty Diagnoses / Procedures Referred By Contac t Referred To Contact Diagnoses Encounter for screening mammogram for malignant neoplasm of breast Procedures MAMMO DIGITAL SCREEN BILAT Gus Booker MD [address] [place] [address] Phone: tel: fax: [facility] Pre-Registration [place] CALL TO MAKE APPOINTMENT ONLY [address] [place] [address] Phone: tel: fax: Referral ID Status Reason Start Date Expiration Date V isits Requested Visits Authorized [id number] Closed [facility] TO SCHEDULE (SGF) 08/19/2015 09/18/2016 1 1 Encounter Details Date Type Department Care Team (Latest Contact Info) Description 08/19/2015 Ancillary Orders [facility] Pre-Registration [place] CALL TO MAKE APPOINTMENT ONLY [address] [place] [address] Gus Booker MD [address] [place] [address] Encounter for screening mammogram for [...] on file Legal Sex Female 3:03 AM AIRLINE CUSTOMER SERVICE AGENT Gender Identity Not on file Sexual [...] since the prior mammogram(s). us External Provider [facility] MAMMO ORDERABLES Final Res ult documented in this encounter Visit Diagnoses Diagnosis Encounter for screening mammogram for malignant neoplasm of breast- Primary Other screening mammogram Encounter for screening mammogram for malignant neoplasm of breast Other screening mammogram documented in this encounter Care Teams Senior Applications Architect Relationship Specialty [place] [address] [place] [phone] PCP - General Family Practice 03/19/15 documented as of this encounter
--- OUTSIDE RECORDS SUMMARY | 2025-03-09 13:38 | XMS_ITS | Encounter Summary ---
Author Organization [facility] Address [address] [place] [address] Care Team Providers Care Feed Mixer Name Role Phone Gus Booker MD Primary Care Provider [phone] Encounter Details Date Type Department Care Team (Latest Contact Info) Description 05/16/2006 Outpatient Historical [facility] Imaging Services-[facility] R[address] [place] [address] Macho Jones MD NO ADDRESS ON FILE Malig Julio Thyroid (Primary Dx); Unspecified Hypothyroidism Social History Tobacco Use Types Packs/Day Years Used Date Smoking Tobacco: Never Assessed Comments Unknown Sex and Gender Information Value Date Recorded Sex Assigned at Not on file Legal Sex Female 3:03 AM ACID WASHER OPERATOR Gender Identity Not on file Sexual Orientation Not on file documented as of this encounter Plan of Treatment Not on file documented as of this encounter Visit Diagnoses Diagnosis Malig julio thyroid- Primary Malignant neoplasm of thyroid gland Unspecified hypothyroidism documented in this encounter Care Teams Feed Mixer Relationship Specialty Start Date End Date Gus Booker MD [address] [place] [phone] PCP - General Family Practice 03/19/15 documented as of this encounter
--- OUTSIDE RECORDS SUMMARY | 2025-03-09 13:38 | XMS_ITS | Encounter Summary ---
Author Organization [facility] Address [address] [place] [address] Care Team Providers Care Advertising Executive Name Role Phone Gus Booker MD Primary Care Provider [phone] Encounter Details Date Type Department Care Team (Latest Contact Info) Description 01/10/2007 Outpatient [facility] Breast [facility] [address] [place] [address] Rosa Jack MD NO ADDRESS ON FILE Other Screening Mammogram (Primary Dx) Social History Tobacco Use Types Packs/Day Years Used Date Smoking Tobacco: Never Assessed Comments Unknown Sex and Gender Information Value Date Recorded Sex Assigned at Not on file Legal Sex Female 3:03 AM SMOKING TOBACCO CUTTER OPERATOR Gender Identity Not on file Sexual Orientation Not on file documented as of this encounter Plan of Treatment Not on file documented as of this encounter Visit Diagnoses Diagnosis Other screening mammogram- Primary documented in this encounter Care Teams Advertising Executive Relationship Specialty Start Date End Date Gus Booker MD [address] [place] [address] PCP - General Family Practice 03/19/15 documented as of this encounter
--- OUTSIDE RECORDS SUMMARY | 2025-03-09 13:38 | XMS_ITS | Encounter Summary ---
Author Organization [facility] Address [address] [place] [address] Care Team Providers Care Superior Court Judge Name Role Phone Gus Booker MD Primary Care Provider [phone] Encounter Details Date Type Department Care Team (Late st Contact Info) Description 04/25/2008 Outpatient Historical [facility] Specialty Nursing Services [facility] [address] [place] [phone] Macho Jones MD NO ADDRESS ON FILE Social History Tobacco Use Types Packs/Day Years Used Date Smoking Tobacco: Never Assessed Comments No Sex and Gender Information Value Date Recorded Sex Assigned at Not on file Legal Sex Female 3:03 AM PAPER SPOOLER Gender Identity Not on file Sexual Orientation Not on file documented as of this encounter Plan of Treatment Not on file documented as of this encounter Visit Diagnoses Not on filedocumented in this encounter Care Teams Superior Court Judge Relationship Specialty Start Date End Date Gus Booker MD [address] [place] [address] PCP - General Family Practice 03/19/15 documented as of this encounter
--- OUTSIDE RECORDS SUMMARY | 2025-03-09 13:38 | XMS_ITS | Encounter Summary ---
Author Organization [facility] Address [address] [place] [address] Care Team Providers Care Beveller Operator Name Role Phone Gus Booker MD Primary Care Provider [phone] Reason for Referral * Outpatient Services (Routine) - Closed Specialty Diagnoses / Procedures Referred By Contac t Referred To Contact Diagnoses Abnormal EKG Procedures NM PHARMACOLOGICAL STRESS TEST Gus Booker MD [address] [place] [address] Phone: tel: fax: [facility] Pre-Registration [place] CALL TO MAKE APPOINTMENT ONLY [address] [place] [address] Phone: tel: fax: Referral ID Status Reason Start Date Expiration Date V isits Requested Visits Authorized [id number] Closed F [facility] TO SCHEDULE (SGF) 04/03/2015 05/03/2016 1 1 LE UNIT ASSISTANT Encounter Details Date Type Department Care Team (Latest Contact Info) Description 04/03/2015 Ancillary Orders [facility] Pre-Registration [place] CALL TO MAKE APPOINTMENT ONLY [address] [place] [address] Gus Booker MD [address] [place] [address] Abnormal EKG (Primary Dx) Social History Tobacco Use Types Packs/Day Years Used Date Smoking Tobacco: Never Smokeless Tobacco: Never Alcohol Use Standard Drinks/Week Comments No 0 (1 standard drink = 0.6 oz pur e alcohol) Comments No Sex and Gender Information Value Date Recorded Sex Assigned at Not on file Legal Sex Female 3:03 AM MOBILE UNIT ASSISTANT Gender Identity Not on file Sexual Orientation Not on file Occupation Industry Job Start Date Job End Date Not on file Not on file Not on file Not on file documented as of this encounter Plan of Treatment Not on file documented as of this encounter Results * NM PHARMACOLOGICAL STRESS TEST (04/15/2015 10:00 AM MOBILE UNIT ASSISTANT) 04/15/2015 8:08 AM MOBILE UNIT ASSISTANT Narrative INTERFACE SYSTEM - 04/15/2015 10:32 AM MOBILE UNIT ASSISTANT Rest/Stress Single Isotope SPECT Myocardial Perfusion Imaging [...] available for direct comparison. Dr. Sonia MD, [facility] This laboratory has been accredited by [...] available for direct comparison. Dr. Sonia MD, [facility] This laboratory has been accredited by the Intersocietal Commission for the Accreditation of Nuclear Medicine Laboratories (ICANL). External Provider [facility] ORDERABLES Final Resu lt INTERFACE SYSTEM Refer to clinic/hospital department documented in this encounter Visit Diagnoses Diagnosis Abnormal EKG- Primary Nonspecific abnormal electrocardiogram (ECG) (EKG) Abnormal EKG Nonspecific abnormal electrocardiogram (ECG) (EKG) documented in this encounter Care Teams Beveller Operator Relationship Specialty Start Date End Date Gus Booker MD [address] [place] [phone] PCP - General Family Practice 03/19/15 documented as of this encounter
--- OUTSIDE RECORDS SUMMARY | 2025-03-09 13:38 | XMS_ITS | Encounter Summary ---
Author Organization [facility] Address [address] [place] [address] Care Team Providers Care Lumber Stacker Operator Name Role Phone Gus Booker MD Primary Care Provider [phone] Encounter Details Date Type Department Care Team (Latest Contact Info) Description 10/13/2006 Outpatient Historical [facility] Imaging Services-[facility] [address] [place] [address] Sandeep Riddle MD [address] [place] [phone] Postsurgical Hypothyroidism (Primary Dx); Malig Julio Thyroid Social History Tobacco Use Types Packs/Day Years Used Date Smoking Tobacco: Never Assessed Comments Unknown Sex and Gender Information Value Date Recorded Sex Assigned at Not on file Legal Sex Female 3:03 AM BROADCASTING EQUIPMENT MECHANIC Gender Identity Not on file Sexual Orientation Not on file documented as of this encounter Plan of Treatment Not on file documented as of this encounter Visit Diagnoses Diagnosis Postsurgical hypothyroidism- Primary Malig julio thyroid Malignant neoplasm of thyroid gland documented in this encounter Care Teams Lumber Stacker Operator Relationship Specialty Start Date End Date Gus Booker MD [address] [place] [address] PCP - General Family Practice 03/19/15 documented as of this encounter
--- OUTSIDE RECORDS SUMMARY | 2025-03-09 13:38 | XMS_ITS | Encounter Summary ---
Author Organization [facility] Address [address] [place] [address] Care Team Providers Care Member Of Technical Staff Name Role Phone Gus Booker MD Primary Care Provider [phone] Encounter Details Date Type Department Care Team (Latest Contact Info) Description 04/10/2008 Outpatient Historical [facility] Imaging Services-[place] [facility] R[address] [place] [address] Macho Jones MD NO ADDRESS ON FILE Malignant Neoplasm of Thyroid Gland (CMS/HCC) Social History Tobacco Use Types Packs/Day Years Used Date Smoking Tobacco: Never Assessed Comments No Sex and Gender Information Value Date Recorded Sex Assigned at Not on file Legal Sex Female 3:03 AM GROUND INSTRUCTOR BASIC Gender Identity Not on file Sexual Orientation Not on file documented as of this encounter Plan of Treatment Not on file documented as of this encounter Procedures Procedure Name Priority Date/Time Associated Diagnosis Comments CT SOFT TISSUE NECK W CONTRAST Routine 04/12/2008 3:04 PM GROUND INSTRUCTOR BASIC CT CHEST W CONTRAST Routine 04/12/2008 3 :03 PM GROUND INSTRUCTOR BASIC POC CREATININE Routine 04/12/2008 2:15 PM GROUND INSTRUCTOR BASIC documented in this encounter Results * CT SOFT TISSUE NECK W CONTRAST (04/12/2008 3:04 PM GROUND INSTRUCTOR BASIC) Anatomical Region Laterality Modality Neck Other 04/12/2008 3:04 PM GROUND INSTRUCTOR BASIC Narrative 04/12/2008 3:36 PM GROUND INSTRUCTOR BASIC 50 mL of Optiray-240 were given during [...] CT CHEST W CONTRAST (04/12/2008 3:03 PM GROUND INSTRUCTOR BASIC) Anatomical Region Laterality Modality Chest Other 04/12/2008 3:03 PM GROUND INSTRUCTOR BASIC Narrative 04/13/2008 5:36 PM GROUND INSTRUCTOR BASIC CT of the chest was performed after [...] * (ABNORMAL) POC CREATININE (04/12/2008 2:15 PM GROUND INSTRUCTOR BASIC) CREATININE POC 0.7(L) 0.7 - 1.2 mg/dL [facility] Capillary blood specimen (specimen) 04/12/2008 2:15 PM GROUND INSTRUCTOR BASIC 04/12/2008 5:13 PM GROUND INSTRUCTOR BASIC Macho Jones MD POINT OF CARE TESTING Final Result INTERFACE SYSTEM Refer to clinic/hospital department [facility] CLIA# [id number] [address] [place] [address] documented in this encounter Visit Diagnoses Diagnosis Malignant neoplasm of thyroid gland (CMS/HCC) Malignant neoplasm of thyroid gland documented in this encounter Care Teams Member Of Technical Staff Relationship Specialty Start Date End Date Gus Booker MD [address] [place] [phone] PCP - General Family Practice 03/19/15 documented as of this encounter
--- OUTSIDE RECORDS SUMMARY | 2025-03-09 13:38 | XMS_ITS | Encounter Summary ---
Author Organization [facility] Address [address] [place] [address] Care Team Providers Care Electrical Systems Drafter Name Role Phone Gus Booker MD Primary Care Provider [phone] Encounter Details Date Type Department Care Team (Latest Contact Info) Description 01/12/2006 Outpatient Historical [facility] Gen Spec Surg [address] [place] [address] Joby Slater MD NO ADDRESS ON FILE Malig Julio Thyroid (Primary Dx); Malig Jluio Lymph-Intrathoracic (CMS/HCC) Social History Tobacco Use Types Packs/Day Years Used Date Smoking Tobacco: Never Assessed Comments Unknown Sex and Gender Information Value Date Recorded Sex Assigned at Not on file Legal Sex Female 3:03 AM REGISTERED NURSE MIDWIFE Gender Identity Not on file Sexual Orientation Not on file documented as of this encounter Plan of Treatment Not on file documented as of this encounter Visit Diagnoses Diagnosis Malig julio thyroid- Primary Malignant neoplasm of thyroid gland 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
--- OUTSIDE RECORDS SUMMARY | 2025-03-09 13:38 | XMS_ITS | Encounter Summary ---
Author Organization [facility] Address [address] [place] [address] Care Team Providers Care Home Theater Installer Name Role Phone Gus Booker MD Primary Care Provider [phone] Encounter Details Date Type Department Care Team (Latest Contact Info) Description 12/30/2005 Outpatient Historical [facility] [address] [facility] [address] [place] [address] Willa Colon MD NO ADDRESS ON FILE Other Sign and Symptom in Breast (Primary Dx) Social History Tobacco Use Types Packs/Day Years Used Date Smoking Tobacco: Never Assessed Comments Unknown Sex and Gender Information Value Date Recorded Sex Assigned at Not on file Legal Sex Female 3:03 AM LEAD CLINICAL RESEARCH COORDINATOR Gender Identity Not on file Sexual Orientation Not on file documented as of this encounter Plan of Treatment Not on file documented as of this encounter Visit Diagnoses Diagnosis Other sign and symptom in breast- Primary documented in this encounter Care Teams Home Theater Installer Relationship Specialty Start Date End Date Gus Booker MD [address] [place] [phone] PCP - General Family Practice 03/19/15 documented as of this encounter
--- OUTSIDE RECORDS SUMMARY | 2025-03-09 13:38 | XMS_ITS | Encounter Summary ---
Author Organization [facility] Address [address] [place] [address] Care Team Providers Care Safety And Skill Based Pay Manager Name Role Phone Gus Booker MD Primary Care Provider [phone] Reason for Referral * Outpatient Services (Routine) - Closed Specialty Diagnoses / Procedures Referred By Destiney johnson Referred To Contact Diagnoses Other screening mammogram Procedures MAMMO DIGITAL SCREEN BILAT Rosa Jack MD NO ADDRESS ON FILE [facility] Pre-Registration [employer] CALL TO MAKE APPOINTMENT ONLY [address] [place] [address] Phone: tel: fax: Referral ID Status Reason Start Date Expiration Date V isits Requested Visits Authorized [id number] Closed F [facility] TO SCHEDULE (SGF) 05/04/2012 06/04/2013 1 1 ID CENTER ASSEMBLER Encounter Details Date Type Department Care Team (Latest Contact Info) Description 05/04/2012 Ancillary Orders [facility] CALL TO MAKE APPOINTMENT ONLY [address] [place] [address] Rosa Jack MD NO ADDRESS ON FILE Other screening mammogram Social History Tobacco Use Types Packs/Day Years Used Date Smoking Tobacco: Never Smokeless Tobacco: Never Alcohol Use Standard Drinks/Week Comments No 0 (1 standard drink = 0.6 oz pur e alcohol) Comments No Sex and Gender Information Value Date Recorded Sex Assigned at Not on file Legal Sex Female 3:03 AM LIQUID CENTER ASSEMBLER Gender Identity Not on file Sexual [...] mammogram documented in this encounter Care Teams Safety And Skill Based Pay Manager Relationship Specialty Start Date End Date Gus Booker MD [address] [place] [phone] PCP - General Family Practice 03/19/15 documented as of this encounter
--- OUTSIDE RECORDS SUMMARY | 2025-03-09 13:38 | XMS_ITS | Encounter Summary ---
Author Organization [facility] Address [address] [place] [address] Care Team Providers Care Hatchery Worker Name Role Phone Gus Booker MD Primary Care Provider [phone] Encounter Details Date Type Department Care Team (Latest Contact Info) Description 11/30/2006 Outpatient Historical [facility] [address] [place] [address] Macho Jones MD NO ADDRESS ON FILE Malignant Neoplasm of Thyroid Gland (CMS/HCC) (Primary Dx) Social History Tobacco Use Types Packs/Day Years Used Date Smoking Tobacco: Never Assessed Comments Unknown Sex and Gender Information Value Date Recorded Sex Assigned at Not on file Legal Sex Female 3:03 AM MAILROOM SUPERVISOR Gender Identity Not on file Sexual [...] gland documented in this encounter Care Teams Hatchery Worker Relationship Specialty Start Date End Date Gus Booker MD [address] [place] [phone] PCP - General Family Practice 03/19/15 documented as of this encounter
--- OUTSIDE RECORDS SUMMARY | 2025-03-09 13:38 | XMS_ITS | Encounter Summary ---
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) Social History Tobacco Use Types Packs/Day Years Used Date Smoking Tobacco: Never Assessed Comments Unknown Sex and Gender Information Value Date Recorded Sex Assigned at Not on file Legal Sex Female 3:03 AM MOTOR VEHICLE EMISSIONS INSPECTOR Gender Identity Not on file Sexual Orientation Not on file documented as of this encounter Plan of Treatment Not on file documented as of this encounter Visit Diagnoses Diagnosis Atrophic gastritis without mention of hemorrhage- Primary documented in this encounter Care Teams Surgical Dental Assistant Relationship Specialty Start Date End Date Gus Booker MD [address] [place] [phone] PCP - General Family Practice 03/19/15 documented as of this encounter
--- OUTSIDE RECORDS SUMMARY | 2025-03-09 13:38 | XMS_ITS | Encounter Summary ---
Author Organization [facility] Address [address] [place] [address] Care Team Providers Care Litigator Name Role Phone Gus Booker MD Primary Care Provider [phone] Reason for Referral * Outpatient Services (Routine) - Closed Specialty Diagnoses / Procedures Referred By Destiney johnson Referred To Contact Diagnoses Other screening mammogram Procedures MAMMO DIGITAL SCREEN BILAT Rosa Jack MD NO ADDRESS ON FILE Referral ID Status Reason Start Date Expiration Date Visits Re quested Visits Authorized [id number] Closed 02/02/2010 08/01/2010 1 1 Encounter Details Date Type Department Care Team (Late st Contact Info) Description 02/02/2010 Ancillary Orders [facility] [address] [facility] [address] [place] [phone] Rosa Jack MD NO ADDRESS ON FILE Other screening mammogram Social History Tobacco Use Types Packs/Day Years Used Date Smoking Tobacco: Never Alcohol Use Standard Drinks/Week Comments No 0 (1 standard drink = 0.6 oz pur e alcohol) Comments No Sex and Gender Information Value Date Recorded Sex Assigned at Not on file Legal Sex Female 3:03 AM BREAD AND PASTRY BAKER Gender Identity Not on file Sexual Orientation Not on file documented as of this encounter Plan of Treatment Not on file documented as of this encounter Results * MAMMO DIGITAL SCREEN BILAT (04/14/2010 3:50 PM BREAD AND PASTRY BAKER) Anatomical Region Laterality Modality Breast Bilateral Mammography Narrative 04/21/2010 10:04 AM BREAD AND PASTRY BAKER Bilateral Mammogram Reason for Exam: Screening Comparison: [...] mammogram documented in this encounter Care Teams Litigator Relationship Specialty Start Date End Date Gus Booker MD [address] [place] [address] PCP - General Family Practice 03/19/15 documented as of this encounter
--- OUTSIDE RECORDS SUMMARY | 2025-03-09 13:38 | XMS_ITS | Encounter Summary ---
Author Organization [facility] Address [address] [place] [address] Care Team Providers Care Textile Broker Name Role Phone Gus Booker MD Primary Care Provider [phone] Reason for Referral * Outpatient Services (Routine) - Closed Specialty Diagnoses / Procedures Referred By Contac t Referred To Contact Diagnoses Papillary carcinoma of thyroid (CMS/HCC) Procedures CT CHEST W CONTRAST Macho Jones MD [facility] Pre-Registration [place] CALL TO MAKE APPOINTMENT ONLY [address] [place] [address] Phone: tel: fax: Referral ID Status Reason Start Date Expiration Date V isits Requested Visits Authorized [id number] Closed [facility] TO SCHEDULE (SGF) 12/30/2016 01/30/2018 1 1 Encounter Details Date Type Department Care Team (Late st Contact Info) Description 12/30/2016 Ancillary Orders [facility] Endocrinology-[facility] [place] [address] [place] [address] Macho Jones MD NO ADDRESS ON [...] on file Legal Sex Female 3:03 AM MOLDER HAND Gender Identity Not on file Sexual [...] IMPRESSION: No evidence of thoracic metastatic disease. [id number] Narrative Procedure Note Mik Weber, DO - [...] IMPRESSION: No evidence of thoracic metastatic disease. [id number] ORDERABLES Final Result documented in this encounter Visit Diagnoses Diagnosis Papillary carcinoma of thyroid (CMS/HCC) Malignant neoplasm of thyroid gland Papillary carcinoma of thyroid (CMS/HCC) Malignant neoplasm of thyroid gland documented in this encounter Care Teams Textile Broker Relationship Specialty Start Date End Date Gus Booker MD [address] [place] [phone] PCP - General Family Practice 03/19/15 documented as of this encounter
--- OUTSIDE RECORDS SUMMARY | 2025-03-09 13:38 | XMS_ITS | Encounter Summary ---
Author Organization [facility] Address [address] [place] [address] Care Team Providers Care Commutator Operator Name Role Phone Gus Booker MD Primary Care Provider [phone] Encounter Details Date Type Department Care Team (Late st Contact Info) Description 10/12/2006 Outpatient Historical [facility] Imaging [facility] [place] [address] [place] [address] Macho Jones MD NO ADDRESS ON FILE Social History Tobacco Use Types Packs/Day Years Used Date Smoking Tobacco: Never Assessed Comments Unknown Sex and Gender Information Value Date Recorded Sex Assigned at Not on file Legal Sex Female 3:03 AM FINISHER HAND Gender Identity Not on file Sexual [...] on filedocumented in this encounter Care Teams Commutator Operator Relationship Specialty Start Date End Date Gus Booker MD [facility] [place] [address] PCP - General Family Practice 03/19/15 documented as of this encounter
--- OUTSIDE RECORDS SUMMARY | 2025-03-09 13:38 | XMS_ITS | Encounter Summary ---
Author Organization [facility] Address [address] [place] [address] Care Team Providers Care Social Work Faculty Member Name Role Phone Gus Booker MD Primary Care Provider [phone] Encounter Details Date Type Department Care Team (Late st Contact Info) Description 02/06/2009 Ancillary Orders [facility] [address] [facility] [address] [place] [address] Rosa Jack MD NO ADDRESS ON FILE Other Screening Mammogram Social History Tobacco Use Types Packs/Day Years Used Date Smoking Tobacco: Never Assessed Comments No Sex and Gender Information Value Date Recorded Sex Assigned at Not on file Legal Sex Female 3:03 AM PUBLIC HEALTH TEACHER Gender Identity Not on file Sexual [...] mammogram documented in this encounter Care Teams Social Work Faculty Member Relationship Specialty Start Date End Date Gus Booker MD [address] [place] [phone] PCP - General Family Practice 03/19/15 documented as of this encounter
--- OUTSIDE RECORDS SUMMARY | 2025-03-09 13:38 | XMS_ITS | Encounter Summary ---
Author Organization [facility] Address [address] [place] [address] Care Team Providers Care Biomedical Field Service Engineer Name Role Phone Gus Booker MD Primary Care Provider [phone] Encounter Details Date Type Department Care Team [...] on file Legal Sex Female 3:03 AM CHANGE CONTROL ANALYST Gender Identity Not on file Sexual [...] Goal INR 3.0; range 2.5 - 3.5 POST-[place] Goal INR 2.5; range 2.0 - 3.0 [...] By: Raj Lan M.D. Date Signed: 08/18/[address] [facility] Procedure Note 03/08/2009 PROCEDURE TITLE: ULTRASOUND [...] tolerated the procedure well. - Dictated By: Chetser Najera Electronically Signed By: Raj Lan M.D. Date Signed: 08/18/[address] [facility] us James Raman MD ORDERABLES Final Resul t documented in this encounter Visit Diagnoses Diagnosis Other chronic nonalcoholic liver disease- Primary documented in this encounter Care Teams Biomedical Field Service Engineer Relationship Specialty Start Date End Date Gus Booker MD [address] [place] [address] PCP - General Family Practice 03/19/15 documented as of this encounter
--- OUTSIDE RECORDS SUMMARY | 2025-03-09 13:38 | XMS_ITS | Encounter Summary ---
Author Organization [facility] Address [address] [place] [address] Care Team Providers Care Program Host Name Role Phone Gus Booker MD Primary Care Provider [phone] Encounter Details Date Type Department Care Team (Late st Contact Info) Description 08/31/2018 Ancillary Orders [facility] [address] [place] [address] Joby Burnett MD [address] [place] [phone] Right hip pain Social History Tobacco Use Types Packs/Day Years Used Date Smoking Tobacco: Never Smokeless Tobacco: Never Alcohol Use Standard Drinks/Week Comments No 0 (1 standard drink = 0.6 oz pur e alcohol) Comments No Sex and Gender Information Value Date Recorded Sex Assigned at Not on file Legal Sex Female 3:03 AM IMPORT/EXPORT FREIGHT FORWARDER Gender Identity Not on file Sexual Orientation [...] thigh documented in this encounter Care Teams Program Host Relationship Specialty Start Date End Date Gus Booker MD [address] [place] [address] PCP - General Family Practice 03/19/15 documented as of this encounter
--- OUTSIDE RECORDS SUMMARY | 2025-03-09 13:38 | XMS_ITS | Encounter Summary ---
Author Organization [facility] Address [address] [place] [address] Care Team Providers Care Home Care Manager Name Role Phone Gus Booker MD Primary Care Provider [phone] Encounter Details Date Type Department Care Team (Latest Contact Info) Description 12/24/2005 Outpatient [facility] Breast Center [facility] [address] [place] [address] Rosa Jack MD NO ADDRESS ON FILE Other Screening Mammogram (Primary Dx) Social History Tobacco Use Types Packs/Day Years Used Date Smoking Tobacco: Never Assessed Comments Unknown Sex and Gender Information Value Date Recorded Sex Assigned at Not on file Legal Sex Female 3:03 AM VACCINE CUSTOMER REPRESENTATIVE Gender Identity Not on file Sexual Orientation Not on file documented as of this encounter Plan of Treatment Not on file documented as of this encounter Visit Diagnoses Diagnosis Other screening mammogram- Primary documented in this encounter Care Teams Home Care Manager Relationship Specialty Start Date End Date Gus Booker MD [address] [place] [address] PCP - General Family Practice 03/19/15 documented as of this encounter
--- OUTSIDE RECORDS SUMMARY | 2025-03-09 13:38 | XMS_ITS | Encounter Summary ---
Author Organization [facility] Address [address] [place] [address] Care Team Providers Care Volcanologist Name Role Phone Gus Booker MD Primary Care Provider [phone] Encounter Details Date Type Department Care Team (Latest Contact Info) Description 08/29/[address] [facility] [address] [place] [address] [place] [phone] Yosef Kennedy MD NO ADDRESS ON FILE Unspecified Disease of the Salivary Glands (Primary Dx); Disturbance of Salivary Secretion Social History Tobacco Use Types Packs/Day Years Used Date Smoking Tobacco: Never Assessed Comments Unknown Sex and Gender Information Value Date Recorded Sex Assigned at Not on file Legal Sex Female 3:03 AM UROLOGIC NURSE Gender Identity Not on file Sexual Orientation Not on file documented as of this encounter Plan of Treatment Not on file documented as of this encounter Visit Diagnoses Diagnosis Unspecified disease of the salivary glands- Primary Disturbance of salivary secretion documented in this encounter Care Teams Volcanologist Relationship Specialty Start Date End Date Gus Booker MD [address] [place] [phone] PCP - General Family Practice 03/19/15 documented as of this encounter
--- OUTSIDE RECORDS SUMMARY | 2025-03-09 13:38 | XMS_ITS | Encounter Summary ---
Author Organization [facility] Address [address] [place] [address] Care Team Providers Care Smoke Room Operator Name Role Phone Gus Booker MD Primary Care Provider [phone] Encounter Details Date Type Department Care Team (Late st Contact Info) Description 12/29/2006 Outpatient Historical [facility] Specialty Nursing Services [facility] [address] [place] [phone] Macho Jones MD NO ADDRESS ON FILE Social History Tobacco Use Types Packs/Day Years Used Date Smoking Tobacco: Never Assessed Comments Unknown Sex and Gender Information Value Date Recorded Sex Assigned at Not on file Legal Sex Female 3:03 AM GIFT SHOP MANAGER Gender Identity Not on file Sexual Orientation Not on file documented as of this encounter Plan of Treatment Not on file documented as of this encounter Visit Diagnoses Not on filedocumented in this encounter Care Teams Smoke Room Operator Relationship Specialty Start Date End Date Gus Booker MD [address] [place] [address] PCP - General Family Practice 03/19/15 documented as of this encounter
--- OUTSIDE RECORDS SUMMARY | 2025-03-09 13:38 | XMS_ITS | Encounter Summary ---
Author Organization [facility] Address [address] [place] [address] Care Team Providers Care Stripper Apprentice Name Role Phone Gus Booker MD Primary Care Provider [phone] Encounter Details Date Type Department Care Team (Latest Contact Info) Description 08/29/2006 Outpatient [facility] [address] [facility] [address] [place] [address] James Raman MD NO ADDRESS ON FILE Other and Unspecified Noninfectious Gastroenteritis and Colitis (Primary Dx); Other Chronic Nonalcoholic Liver Disease Social History Tobacco Use Types Packs/Day Years Used Date Smoking Tobacco: Never Assessed Comments Unknown Sex and Gender Information Value Date Recorded Sex Assigned at Not on file Legal Sex Female 3:03 AM TANK SETTER HELPER Gender Identity Not on file Sexual Orientation Not on file documented as of this encounter Plan of Treatment Not on file documented as of this encounter Visit Diagnoses Diagnosis Other and unspecified noninfectious gastroenteritis and colitis(558.9)- Primary Other and unspecified noninfectious gastroenteritis and colitis Other chronic nonalcoholic liver disease documented in this encounter Care Teams Stripper Apprentice Relationship Specialty Start Date End Date Gus Booker MD [address] [place] [phone] PCP - General Family Practice 03/19/15 documented as of this encounter
--- OUTSIDE RECORDS SUMMARY | 2025-03-09 13:38 | XMS_ITS | Encounter Summary ---
Author Organization [facility] Address [address] [place] [address] Care Team Providers Care Clerical Coordinator Name Role Phone Gus Booker MD Primary Care Provider [phone] Encounter Details Date Type Department Care Team (Late st Contact Info) Description 12/24/2005 Outpatient Historical [facility] Breast [place] [address] [facility] [address] [place] [address] Sabi Foster MD NO ADDRESS ON FILE Other Screening Mammogram (Primary Dx) Social History Tobacco Use Types Packs/Day Years Used Date Smoking Tobacco: Never Assessed Comments Unknown Sex and Gender Information Value Date Recorded Sex Assigned at Not on file Legal Sex Female 3:03 AM SOUTH [place] HISTORY PROFESSOR Gender Identity Not on file Sexual Orientation Not on file documented as of this encounter Plan of Treatment Not on file documented as of this encounter Visit Diagnoses Diagnosis Other screening mammogram- Primary documented in this encounter Care Teams Clerical Coordinator Relationship Specialty Start Date End Date Gus Booker MD [address] [place] [phone] PCP - General Family Practice 03/19/15 documented as of this encounter
--- OUTSIDE RECORDS SUMMARY | 2025-03-09 13:38 | XMS_ITS | Encounter Summary ---
Author Organization [facility] Address [address] [place] [address] Care Team Providers Care Grinder Set Up Operator Centerless Name Role Phone Gus Booker MD Primary Care Provider [phone] Encounter Details Date Type Department Care Team (Late st Contact Info) Description 04/03/2015 Ancillary Orders [facility] Pre-Registration [place] CALL TO MAKE APPOINTMENT ONLY [address] [place] [address] Gus Booker MD [address] [place] [address] Social History Tobacco Use Types Packs/Day Years Used Date Smoking Tobacco: Never Smokeless Tobacco: Never Alcohol Use Standard Drinks/Week Comments No 0 (1 standard drink = 0.6 oz pur e alcohol) Comments No Sex and Gender Information Value Date Recorded Sex Assigned at Not on file Legal Sex Female 3:03 AM DECK SCALER Gender Identity Not on file Sexual Orientation Not on file Occupation Industry Job Start Date Job End Date Not on file Not on file Not on file Not on file documented as of this encounter Plan of Treatment Not on file documented as of this encounter Visit Diagnoses Not on filedocumented in this encounter Care Teams Grinder Set Up Operator Centerless Relationship Specialty Start Date End Date Gus Booker MD [address] [place] [address] PCP - General Family Practice 03/19/15 documented as of this encounter
--- OUTSIDE RECORDS SUMMARY | 2025-03-09 13:38 | XMS_ITS | Clinical Summary ---
Author Organization [facility] Address [address] [place] [address] Care Team Providers Care Deputy Insurance Commissioner Name Role Phone Gus Booker MD Primary Care Provider [phone] Allergies Active Allergy Reactions Criticality Noted Date [...] 1 TABLET BY MOUTH DAILY IN THE FIBER OPTIC TECHNICIAN 30 Tablet 5 1 Active citalopram (CeleXA) [...] on file Legal Sex Female 3:03 AM HORTICULTURAL THERAPIST Gender Identity Not on file Sexual Orientation Not on file Occupation Industry Job Start Date Job End Date Not on file Not on file Not on file Not on file Last Filed Vital Signs Vital Sign Reading Time Taken Comments Blood Pressure 122/84 10/02/2020 11:02 AM CDT Pulse 93 10/02/2020 11:02 AM CDT Temperature 36.2 C (97.1 F) 05/12/2018 8:51 AM HORTICULTURAL THERAPIST Respiratory Rate 18 08/01/2018 3:29 PM CDT [...] Insurance [employer] Medicare Part D [facility] Advance Directives For more information, please contact: [phone] * Full Code (Latest Code Status on [...] 7:11 AM 06/28/2011 10:56 AM Care Teams Deputy Insurance Commissioner Relationship Specialty Start Date End Date Gus Booker MD [address] [place] [phone] PCP - General Family Practice 03/19/15
--- OUTSIDE RECORDS SUMMARY | 2025-03-09 13:38 | XMS_ITS | Encounter Summary ---
Author Organization [facility] Address [address] [place] [address] Care Team Providers Care Structural Engineer Name Role Phone Gus Booker MD Primary Care Provider [phone] Encounter Details Date Type Department Care Team (Latest Contact Info) Description 11/28/2006 Outpatient Historical [facility] Specialty Nursing Services [facility] [address] [place] [address] Macho Jones MD NO ADDRESS ON FILE Personal History of Allergy to Penicillin (Primary Dx) Social History Tobacco Use Types Packs/Day Years Used Date Smoking Tobacco: Never Assessed Comments Unknown Sex and Gender Information Value Date Recorded Sex Assigned at Not on file Legal Sex Female 3:03 AM 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
--- OUTSIDE RECORDS SUMMARY | 2025-03-09 13:38 | XMS_ITS | Encounter Summary ---
Author Organization [facility] Address [address] [place] [address] Care Team Providers Care Insurance Administrator Name Role Phone Gus Booker MD Primary Care Provider [phone] Encounter Details Date Type Department Care Team (Latest Contact Info) Description 05/23/2006 Outpatient Historical [facility] Endocrinology-[place] [address] [place] [address] Macho Jones MD NO ADDRESS ON FILE Malig Julio Thyroid (Primary Dx); Postsurgical Hypothyroidism Social History Tobacco Use Types Packs/Day Years Used Date Smoking Tobacco: Never Assessed Comments Unknown Sex and Gender Information Value Date Recorded Sex Assigned at Not on file Legal Sex Female 3:03 AM PATIENT ACCESS Gender Identity Not on file Sexual Orientation Not on file documented as of this encounter Plan of Treatment Not on file documented as of this encounter Visit Diagnoses Diagnosis Malig julio thyroid- Primary Malignant neoplasm of thyroid gland Postsurgical hypothyroidism documented in this encounter Care Teams Insurance Administrator Relationship Specialty Start Date End Date Gus Booker MD [address] [place] [phone] PCP - General Family Practice 03/19/15 documented as of this encounter
--- OUTSIDE RECORDS SUMMARY | 2025-03-09 13:38 | XMS_ITS | Encounter Summary ---
Author Organization [facility] Address [address] [place] [address] Care Team Providers Care Police Department Secretary Name Role Phone Gus Booker MD Primary Care Provider [phone] Encounter Details Date Type Department Care Team (Latest Contact Info) Description 09/28/2006 Outpatient Historical [facility] Imaging Services [address] [place] [phone] Yosef Kennedy MD NO ADDRESS ON FILE Other Specified Disorders of Thyroid (Primary Dx) Social History Tobacco Use Types Packs/Day Years Used Date Smoking Tobacco: Never Assessed Comments Unknown Sex and Gender Information Value Date Recorded Sex Assigned at Not on file Legal Sex Female 3:03 AM SCHOOL OPERATIONS 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
--- OUTSIDE RECORDS SUMMARY | 2025-03-09 13:38 | XMS_ITS | Encounter Summary ---
Author Organization [facility] Address [address] [place] [address] Care Team Providers Care Stone And Plate Preparer Apprentice Name Role Phone Gus Booker MD Primary Care Provider [phone] Reason for Referral * Outpatient Services (Routine) - Closed Specialty Diagnoses / Procedures Referred By Contac t Referred To Contact Radiology Diagnoses Abnormal mammogram Procedures MAMMO DIAGNOSTIC BILATERAL W OR WO CAD Gus Booker MD [address] [place] [address] Phone: tel: fax: [facility] [address] [facility] [address] [place] [address] Phone: tel: fax: Referral ID Status Reason Start Date Expiration Date V isits Requested Visits Authorized [id number] Closed [facility] TO SCHEDULE (SGF) 10/26/2017 11/26/2018 1 1 Encounter Details Date Type Department Care Team (Late st Contact Info) Description 10/26/2017 Ancillary Orders [facility] Pre-Registration [place] CALL TO MAKE APPOINTMENT ONLY [address] [place] [address] Gus Booker MD [address] [place] [address] Abnormal mammogram Social History Tobacco Use Types Packs/Day Years Used Date Smoking Tobacco: Never Smokeless Tobacco: Never Alcohol Use Standard Drinks/Week Comments No 0 (1 standard drink = 0.6 oz pur e alcohol) Comments No Sex and Gender Information Value Date Recorded Sex Assigned at Not on file Legal Sex Female 3:03 AM 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 Patient received a result/recommendation letter. [id number] Narrative 01/03/2018 3:48 PM CDT Bilateral Digital [...] by the Computer Aided Detection System (CAD), Explorer.io ImageChecker, Version 8.3. us External Provider [facility] MAMMO ORDERABLES Final Res ult documented in this encounter Visit Diagnoses Diagnosis Abnormal mammogram Abnormal mammogram, unspecified Abnormal mammogram Abnormal mammogram, unspecified documented in this encounter Care Teams Stone And Plate Preparer Apprentice Relationship Specialty Start Date End Date Gus Booker MD [address] [place] [phone] PCP - General Family Practice 03/19/15 documented as of this encounter
--- OUTSIDE RECORDS SUMMARY | 2025-03-09 13:38 | XMS_ITS | Encounter Summary ---
Author Organization [facility] Address [address] [place] [address] Care Team Providers Care Learning Solutions Specialist Name Role Phone Gus Booker MD Primary Care Provider [phone] Encounter Details Date Type Department Care Team (Latest Contact Info) Description 12/24/2005 Outpatient Historical [facility] Endocrinology-[place] [address] [place] [address] Macho Jones MD NO ADDRESS ON FILE Malig Julio Thyroid (Primary Dx); Unspecified Hypothyroidism Social History Tobacco Use Types Packs/Day Years Used Date Smoking Tobacco: Never Assessed Comments Unknown Sex and Gender Information Value Date Recorded Sex Assigned at Not on file Legal Sex Female 3:03 AM GROUP CONTRACT ANALYST Gender Identity Not on file Sexual Orientation Not on file documented as of this encounter Plan of Treatment Not on file documented as of this encounter Visit Diagnoses Diagnosis Malig julio thyroid- Primary Malignant neoplasm of thyroid gland Unspecified hypothyroidism documented in this encounter Care Teams Learning Solutions Specialist Relationship Specialty Start Date End Date Gus Booker MD [address] [place] [phone] PCP - General Family Practice 03/19/15 documented as of this encounter
--- OUTSIDE RECORDS SUMMARY | 2025-03-09 13:38 | XMS_ITS | Encounter Summary ---
Author Organization [facility] Address [address] [place] [address] Care Team Providers Care Hog Cooler Name Role Phone Gus Booker MD Primary Care Provider [phone] Reason for Referral * Outpatient Services (Routine) - Closed Specialty Diagnoses / Procedures Referred By Destiney johnson Referred To Contact Diagnoses Other screening mammogram Procedures MAMMO DIGITAL SCREEN BILAT Rosa Jack MD NO ADDRESS ON FILE Referral ID Status Reason Start Date Expiration Date Visits Re quested Visits Authorized [id number] Closed 04/21/2011 04/20/2012 1 1 MAKER Encounter Details Date Type Department Care Team (Latest Contact Info) Description 04/21/2011 Ancillary Orders [facility] Pre-Registration [place] CALL TO MAKE APPOINTMENT ONLY [address] [place] [address] Rosa Jack MD NO ADDRESS ON FILE Other screening mammogram Social History Tobacco Use Types Packs/Day Years Used Date Smoking Tobacco: Never Smokeless Tobacco: Never Alcohol Use Standard Drinks/Week Comments No 0 (1 standard drink = 0.6 oz pur e alcohol) Comments No Sex and Gender Information Value Date Recorded Sex Assigned at Not on file Legal Sex Female 3:03 AM LACEMAKER Gender Identity Not on file Sexual Orientation Not on file documented as of this encounter Plan of Treatment Not on file documented as of this encounter Results * MAMMO DIGITAL SCREEN BILAT (05/13/2011 9:39 AM LACEMAKER) Anatomical Region Laterality Modality Breast Bilateral Mammography Narrative 05/14/2011 3:57 PM LACEMAKER Bilateral Mammogram Reason for Exam: Screening Comparison: [...] mammogram documented in this encounter Care Teams Hog Cooler Relationship Specialty Start Date End Date Gus Booker MD [address] [place] [phone] PCP - General Family Practice 03/19/15 documented as of this encounter
--- OUTSIDE RECORDS SUMMARY | 2025-03-09 13:38 | XMS_ITS | Encounter Summary ---
Author Organization [facility] Address [address] [place] [address] Care Team Providers Care Archivist Name Role Phone Gus Booker MD Primary Care Provider [phone] Encounter Details Date Type Department Care Team [...] on file Legal Sex Female 3:03 AM RAIL SPECIALIST Gender Identity Not on file Sexual [...] by Provider, Historical on 03/07/2009 6:28 PM RAIL SPECIALIST The patient returned at approximately nine days [...] By: Ajith Ji M.D. Date Signed: 10/13/05 [facility] Narrative INTERFACE SYSTEM - 10/04/2005 7:07 AM [...] Signed: 10/04/05 [facility] Macho Jones MD [place] ORDERABLES Edited INTERFACE SYSTEM Refer to clinic/hospital department documented in this encounter Visit Diagnoses Diagnosis Malignant neoplasm of thyroid gland (CMS/HCC)- Primary Malignant neoplasm of thyroid gland documented in this encounter Care Teams Archivist Relationship Specialty Start Date End Date Gus Booker MD [address] [place] [phone] PCP - General Family Practice 03/19/15 documented as of this encounter
--- OUTSIDE RECORDS SUMMARY | 2025-03-09 13:38 | XMS_ITS | Encounter Summary ---
Author Organization [facility] Address [address] [place] [address] Care Team Providers Care In Home Tutor Name Role Phone Gus Booker MD Primary Care Provider [phone] Encounter Details Date Type Department Care Team (Late st Contact Info) Description 05/13/2006 Outpatient Historical [facility] [place] [address] [place] [address] Macho Jones MD NO ADDRESS ON FILE Social History Tobacco Use Types Packs/Day Years Used Date Smoking Tobacco: Never Assessed Comments Unknown Sex and Gender Information Value Date Recorded Sex Assigned at Not on file Legal Sex Female 3:03 AM MARKETING REPS SPORTS AND ENTERTAINMENT Gender Identity Not on file Sexual Orientation Not on file documented as of this encounter Plan of Treatment Not on file documented as of this encounter Procedures Procedure Name Priority Date/Time Associated Diagnosis Comments US HEAD NECK TISSUES Routine 05/13/2006 1:46 PM MARKETING [employer] ENTERTAINMENT documented in this encounter Results * US NECK TISSUES (05/13/2006 1:46 PM MARKETING [employer] ENTERTAINMENT) Anatomical Region Laterality Modality Head Other 05/13/2006 1:46 PM MARKETING [employer]TERTAINMENT Narrative 05/13/2006 1:46 PM MARKETING REPS [employer] ENTERTAINMENT NECK ULTRASOUND - 05/16/2006: COMPARISONS: 07/20/2005 CLINICAL [...] on filedocumented in this encounter Care Teams In Home Tutor Relationship Specialty [place] [address] [place] [phone] PCP - General Family Practice 03/19/15 documented as of this encounter
--- OUTSIDE RECORDS SUMMARY | 2025-03-09 13:38 | XMS_ITS | Encounter Summary ---
Author Organization [facility] Address [address] [place] [address] Care Team Providers Care Stoner Out Name Role Phone Gus Booker MD Primary Care Provider [phone] Encounter Details Date Type Department Care Team (Late st Contact Info) Description 12/11/2008 Ancillary Orders [facility] [address] [facility] [address] [place] [address] Rosa Jack MD NO ADDRESS ON FILE Other Screening Mammogram Social History Tobacco Use Types Packs/Day Years Used Date Smoking Tobacco: Never Assessed Comments No Sex and Gender Information Value Date Recorded Sex Assigned at Not on file Legal Sex Female 3:03 AM WOOLEN TESTER Gender Identity Not on file Sexual Orientation Not on file documented as of this encounter Plan of Treatment Not on file documented as of this encounter Visit Diagnoses Diagnosis Other screening mammogram documented in this encounter Care Teams Stoner Out Relationship Specialty Start Date End Date Gus Booker MD [address] [place] [address] PCP - General Family Practice 03/19/15 documented as of this encounter
--- OUTSIDE RECORDS SUMMARY | 2025-03-09 13:38 | XMS_ITS | Encounter Summary ---
Author Organization [facility] Address [address] [place] [address] Care Team Providers Care Ibm Websphere Commerce Consultant Name Role Phone Gus Booker MD Primary Care Provider [phone] Reason for Referral * Outpatient Services (Routine) - Closed Specialty Diagnoses / Procedures Referred By Destiney johnson Referred To Contact Diagnoses Other screening mammogram Procedures MAMMO DIGITAL SCREEN BILAT Rosa Jack MD NO ADDRESS ON FILE [facility] Pre-Registration [place] CALL TO MAKE APPOINTMENT ONLY [address] [place] [address] Phone: tel: fax: Referral ID Status Reason Start Date Expiration Date V isits Requested Visits Authorized [id number] Closed F MC TO SCHEDULE (F) 06/27/2013 07/28/2014 1 1 Encounter Details Date Type Department Care Team (Latest Contact Info) Description 06/27/2013 Ancillary Orders [facility] [place] CALL TO MAKE APPOINTMENT ONLY [address] [place] [address] Rosa Jack MD NO ADDRESS [...] on file Legal Sex Female 3:03 AM BEAM RACKER Gender Identity Not on file Sexual Orientation [...] mammogram documented in this encounter Care Teams Ibm Websphere Commerce Consultant Relationship Specialty Start Date End Date Gus Booker MD [address] [place] [phone] PCP - General Family Practice 03/19/15 documented as of this encounter
--- OUTSIDE RECORDS SUMMARY | 2025-03-09 13:38 | XMS_ITS | Encounter Summary ---
Author Organization [facility] Address [address] [place] [address] Care Team Providers Care Liquor Stores And Agencies Supervisor Name Role Phone Gus Booker MD Primary Care Provider [phone] Encounter Details Date Type Department Care Team (Late st Contact Info) Description 07/27/2006 Outpatient [facility] Gastroenterology[address] [place] [phone] James Raman MD NO ADDRESS ON FILE Nonspecific Abnormal Results of Liver Function Study (Primary Dx) Social History Tobacco Use Types Packs/Day Years Used Date Smoking Tobacco: Never Assessed Comments Unknown Sex and Gender Information Value Date Recorded Sex Assigned at Not on file Legal Sex Female 3:03 AM SPINE NURSE Gender Identity Not on file Sexual Orientation Not on file documented as of this encounter Plan of Treatment Not on file documented as of this encounter Visit Diagnoses Diagnosis Nonspecific abnormal results of liver function study- Primary documented in this encounter Care Teams Liquor Stores And Agencies Supervisor Relationship Specialty Start Date End Date Gus Booker MD [address] [place] [phone] PCP - General Family Practice 03/19/15 documented as of this encounter
--- OUTSIDE RECORDS SUMMARY | 2025-03-09 13:38 | XMS_ITS | Encounter Summary ---
Author Organization [facility] Address [address] [place] [address] Care Team Providers Care Biblical Languages Professor Name Role Phone Gus Booker MD Primary Care Provider [phone] Encounter Details Date Type Department Care Team (Latest Contact Info) Description 10/20/2006 Outpatient Historical [facility] Endocrinology-[place] [address] [place] [address] Macho Jones MD NO ADDRESS ON FILE Malig Julio Thyroid (Primary Dx); Unspecified Hypothyroidism Social History Tobacco Use Types Packs/Day Years Used Date Smoking Tobacco: Never Assessed Comments Unknown Sex and Gender Information Value Date Recorded Sex Assigned at Not on file Legal Sex Female 3:03 AM TWINE 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
--- OUTSIDE RECORDS SUMMARY | 2025-03-09 13:38 | XMS_ITS | Encounter Summary ---
Author Organization [facility] Address [address] [place] [address] Care Team Providers Care Monogram Operator Name Role Phone Gus Booker MD Primary Care Provider [phone] Encounter Details Date Type Department Care Team (Latest Contact Info) Description 02/19/2009 Ancillary Orders [facility] [address] [facility] [address] [place] [address] Rosa Jack MD NO ADDRESS ON FILE Other (Abnormal) Findings on Radiological Examination of Breast Social History Tobacco Use Types Packs/Day Years Used Date Smoking Tobacco: Never Assessed Comments No Sex and Gender Information Value Date Recorded Sex Assigned at Not on file Legal Sex Female 3:03 AM HOMEMAKING REHABILITATION CONSULTANT Gender Identity Not on file Sexual Orientation Not on file documented as of this encounter Plan of Treatment Not on file documented as of this encounter Results * MAMMO BREAST US RT (02/19/2009 2:41 PM HOMEMAKING REHABILITATION CONSULTANT) Anatomical Region Laterality Modality Breast Right Ultrasound Narrative 02/19/2009 3:57 PM HOMEMAKING REHABILITATION CONSULTANT Ultrasound report is included in the diagnostic mammogram report of 02/19/09. Procedure Note Willa Colon MD - 02/21/2009 Ultrasound report is included in the diagnostic mammogram report of02/19/09. us Rsoa Jack MD MAMMO ORDERABLES Final Result documented in this encounter Visit Diagnoses Diagnosis Other (abnormal) findings on radiological examination of breast Other (abnormal) findings on radiological examination of breast documented in this encounter Care Teams Monogram Operator Relationship Specialty Start Date End Date Gus Booker MD [address] [place] [phone] PCP - General Family Practice 03/19/15 documented as of this encounter
--- OUTSIDE RECORDS SUMMARY | 2025-03-09 13:38 | XMS_ITS | Encounter Summary ---
Author Organization [facility] Address [address] [place] [address] Care Team Providers Care Cold Header Operator Name Role Phone Gus Booker MD Primary Care Provider [phone] Reason for Referral * Outpatient Services (Routine) - Closed Specialty Diagnoses / Procedures Referred By Contac t Referred To Contact Diagnoses Other screening mammogram Procedures MAMMO DIGITAL SCREEN BILAT Gus Booker MD [address] [place] [address] Phone: tel: fax: [facility] [place] [facility] Pre-Registration [place] CALL TO MAKE APPOINTMENT ONLY [address] [place] [address] Phone: tel: fax: Referral ID Status Reason Start Date Expiration Date V isits Requested Visits Authorized [id number] Closed F MC TO SCHEDULE (SGF) 08/05/2014 09/05/2015 1 1 Encounter Details Date Type Department Care Team (Latest Contact Info) Description 08/05/2014 Ancillary Orders [facility] Pre-Registration [place] CALL TO MAKE APPOINTMENT ONLY [address] [place] [address] Gus Booker MD [address] [place] [address] Other screening mammogram (Primary Dx) Social History Tobacco Use Types Packs/Day Years Used Date Smoking Tobacco: Never Smokeless Tobacco: Never Alcohol Use Standard Drinks/Week Comments No 0 (1 standard drink = 0.6 oz pur e alcohol) Comments No Sex and Gender Information Value Date Recorded Sex Assigned at Not on file Legal Sex Female 3:03 AM 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 External Provider [facility] MAMMO ORDERABLES Final Res ult documented in this encounter Visit Diagnoses Diagnosis Other screening mammogram- Primary Other screening mammogram documented in this encounter Care Teams Cold Header Operator Relationship Specialty Start Date End Date Gus Booker MD [address] [place] [phone] PCP - General Family Practice 03/19/15 documented as of this encounter
--- OUTSIDE RECORDS SUMMARY | 2025-03-09 13:38 | XMS_ITS | Encounter Summary ---
Author Organization [facility] Address [address] [place] [address] Care Team Providers Care Computator Name Role Phone Gus Booker MD Primary Care Provider [phone] Encounter Details Date Type Department Care Team (Late st Contact Info) Description 07/27/2006 Outpatient [facility] [place] [id number] [facility] [address] [place] [address] James Raman MD NO ADDRESS ON FILE Other Nonspecific Abnormal Serum Enzyme Levels (Primary Dx) Social History Tobacco Use Types Packs/Day Years Used Date Smoking Tobacco: Never Assessed Comments Unknown Sex and Gender Information Value Date Recorded Sex Assigned at Not on file 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 07/27/2006 4:22 PM CDT Result [facility] James Raman MD CHEMISTRY ORDERABLES Edited Performing Organization Address [facility] Phone Number INTERFACE SYSTEM Refer to clinic/hospital [...] of symptoms. 07/27/2006 4:22 PM CDT Result [facility] James Raman MD CHEMISTRY ORDERABLES Edited Performing Organization Address [facility] Phone Number INTERFACE SYSTEM Refer to clinic/hospital department * CERULOPLASMIN (07/27/2006 4:22 PM CDT) CERULOPLASMIN 53.5 25.0 - 63.0 mg/dL INTERFACE SYSTEM 07/27/2006 4:22 PM CDT Result [facility] James Raman MD CHEMISTRY ORDERABLES Edited Performing Organization Address [facility] [place] Phone Number INTERFACE SYSTEM Refer to clinic/hospital department documented in this encounter Visit Diagnoses Diagnosis Other nonspecific abnormal serum enzyme levels- Primary documented in this encounter Care Teams Computator Relationship Specialty Start Date End Date Gus Booker MD [address] [place] [phone] PCP - General Family Practice 03/19/15 documented as of this encounter
[2025-03-09] MEDS: HYDROcodone-acetaminophen 10-325 mg Tablet PO (17:19)
[2025-03-10] VITALS: BP 136/76; PULSE 74; RESP 17; TEMP 36.9; O2SAT 93
[2025-03-10] MEDS: HYDROcodone-acetaminophen 10-325 mg Tablet PO ×2 (02:40→12:12)
[2025-03-10] MEDS: methylPREDNISolone sod succ 40 mg/mL INJ 30 MG IVP ×2 (04:41→13:28)
[2025-03-10] MEDS: LOSARTAN 100 MG TABLET PO (04:42)
[2025-03-10 05:20] VITALS: BP 156/67; PULSE 64; RESP 16; TEMP 36.8; O2SAT 93
[2025-03-10 07:21] VITALS: BP 174/72; PULSE 66; RESP 17; TEMP 36.9; O2SAT 92
[2025-03-10 11:40] VITALS: BP 161/82; PULSE 72; RESP 17; TEMP 36.7; O2SAT 94
--- NOTE | 2025-03-11 13:08 | PM.DCS ---
Discharge Providers Date of Admission: 03/09/25 08:16 Date of Discharge: March 10, 2025 Attending Provider at Admission: Camilo Ansari DO Attending Provider at Discharge: Camilo Ansari DO Primary Care Provider: Gus Booker MD Diagnoses at Discharge Discharge Diagnosis 1. Status post lumbar laminectomy: Reason for Visit Reason for Visit: back pain Discharge Data Vitals Last Vital Signs Temp 98.0 F 03/10/25 11:40 Pulse 72 03/10/25 11:40 Resp 17 03/10/25 11:40 BP 161/82 03/10/25 11:40 Pulse Ox 94 03/10/25 11:40 O2 Del Method Room Air 03/10/25 11:40 Discharge Plan Discharge Patient Disposition: Home Condition: Stable Prescriptions: New prednisone 20 mg tablet 20 mg PO DAILY 7 Days Qty: 15 0RF Rx Instructions: 60 mg for the first 3 days take 3 tabs 40 mg for the next 2 days take 2 tabs 20 mg for the next 2 days take 1 tab 7 days total Continued aspirin 81 mg tablet,delayed release (DR/EC) 81 mg PO DAILY cholecalciferol (vitamin D3) 125 mcg (5,000 unit) capsule 125 mcg PO DAILY Claritin-D 12 Hour 5-120 mg tablet extended release 12 hr 1 tab PO Q12H PRN (Reason: allergy symptoms) Qty: 30 3RF levothyroxine 175 mcg tablet 175 mcg PO DAILY nitroglycerin 0.4 mg tablet, sublingual 0.4 mg sublingual Q5M PRN (Reason: chest pain) Qty: 20 3RF Rx Instructions: do not exceed 3 doses per episode triamcinolone acetonide 0.1 % cream 1 applic topical DAILY Qty: 30 6RF (DME) Manual wheelchair See Rx Instructions .Route .MEDSUPPLY Qty: 1 0RF Rx Instructions: As directed ondansetron HCl 4 mg tablet 4 mg PO Q8H PRN (Reason: nausea and vomiting) Qty: 30 6RF (DME) fluoxetine See Rx Instructions .Route .MEDSUPPLY Qty: 1 0RF Rx Instructions: As directed per psychiatry pantoprazole 20 mg tablet,delayed release (DR/EC) 20 mg PO BID Qty: 180 3RF carisoprodol 350 mg tablet 350 mg PO BID PRN (Reason: muscle pain) Qty: 30 1RF losartan 100 mg tablet 100 mg PO DAILY Qty: 30 3RF dicyclomine 10 mg capsule 10 mg PO BID PRN (Reason: abdominal pain) Qty: 60 6RF metformin 500 mg tablet 500 mg PO DAILY Rx Instructions: TAKE 1 TABLET BY MOUTH EVERY DAY carvedilol 12.5 mg tablet 12.5 mg PO BID Rx Instructions: TAKE 1 TABLET BY MOUTH TWICE DAILY ropinirole 1 mg tablet 1 mg PO DAILY Rx Instructions: TAKE 1 TABLET BY MOUTH EVERY EVENING NEEDED hydrocodone-acetaminophen 5-325 mg tablet 1 - 2 tab PO .Q4-6H Qty: 40 0RF vitamin B complex Tablet Extended Release 1 tab PO DAILY latanoprost [Xalatan] 0.005 % drops 1 drp ophthalmic (eye) BEDTIME [place]-3 350 mg-235 mg- 90 mg-597 mg Capsule,Delayed Release(Dr/Ec) 1 cap PO DAILY Discharge Order = DC NOW: Discharge Order (Routine); Ordered 03/10/25 Ordered By: Camilo Ansari Referrals: Gus Booker MD [Primary Care Provider, [facility]] Referral Note: We have notified your physician's clinic of the need for a follow-up appointment to be scheduled. If you have not heard from them within the next 2 business days, please call them directly. Discharge Diet: Advance as tolerated Discharge Activity: Limit activity as instructed Patient Instructions: Hydrocodone/Acetaminophen (By mouth), Prednisone (By mouth), Opioid Safety, Patient Portal & Rylie Instructions Activity Restrictions/Additional Instructions: Take prednisone as directed you may double up your pain meds. Will see patient in the clinic in this Tuesday the . Thank you for choosing [facility] for your care! The following is a list of instructions, from your provider, to follow upon your discharge to ensure you have the optimal recovery from your recent injury or surgery. Follow-up care is a castelan part of your treatment and safety. Be sure to make and go to all appointments, and call your doctor if you are having problems. If you do not already have a follow-up appointment made, call Dr. Ansari's office in the next 1-3 days to make follow up appointment for 03/12/2025 . It is also a good idea to know your test results and keep a list of the medicines you take. Medications will be prescribed for you at your provider?s discretion. These medications are to be used as instructed;if they are taken more often that prescribed they will not be refilled early and in most cases will not be refilled at all. > When a refill is needed,you should contact our office 2-3 business days beforeyour prescription runs out. Medications will NOTbe refilled by international relations professor providers after hours! > Many pain medications contain Tylenol (Acetaminophen). Do not consume more than 4,000 mg of Tylenol per day in total with any combination of medications. > Pain medications can cause constipation. Please use an over the counter stool softener as directed, while taking pain medications. Consult your local pharmacist with questions or recommendations on stool softeners. If constipation persists, contact our office or your primary care provider. > While under our care,you are not to receive pain medications or other controlled substances from any other provider unless our office is notified and approves. Any attempts to do so will result in refusal to prescribe any further pain medications and possible dismissal from our practice. ? Your wound and/or dressing should remain clean and dry for 2 days after surgery. On postoperative day 2 (48 hours after your surgery) the dressing (if present) should be removed and it is okay to shower and get the incision wet. Pat dry afterwards. No further dressing should be required from that point on. Do not put any creams or ointments on the incision > It is normal for there to be a small amount of discharge (bloody or blood tinged) present from a surgical wound for the first 1-3days. > The wound should be examined twice a day for signs of infection. Mild redness or bruising is to be expected but indications that an infection maybe starting would include;An increase in redness, swelling, or discharge, a foul odor present around the incision, and/or a fever greater than 101 ?F ? Showering is permitted, however we ask that you do not take a bath, sit in a whirlpool / Jacuzzi, or go swimming for 1 month. For only the first 2 days after surgery, lt wilt be necessary for you to cover your wound/dressing with plastic and tape to keep it dry. ? Walking is essential for the healing process after surgery. We would like you to slowly advance your walking. This should be done on relatively flat clear ground (inside or out) or can be done on a treadmill. Remember this goal does not have to happen all at once, slowly increase your distance and duration. This can be broken into more more than one walk per day as tolerated. Patients who walk as directed after surgery rarely require Physical Therapy. In the unlikely event this issue arises your provider will direct hospital staff to make the appropriate arrangements. ? No lifting over 5 pounds {a gallon of milk) or bending/twisting until further notice. Each of these activities places an unnecessary amount of stress onto the body and can impede the delicate healing process. > Instead of bending at the waist, keep your back straight and bend at the knees. > Instead of twisting your torso, keep your back straight and turn your entire body with your feet. ? You may sleep in any position which makes you comfortable.Many patients find comfort sleeping in a reclining chair. It is not abnormal to have difficulty sleeping for the first several weeks following your surgery. We recommend trying Benadryl or Tylenol PM as directed to help with your sleeping difficulties. Both medications are over the counter and available without prescription. ? NO SMOKING!!!Smoking dramatically increases the probability of developing postoperative wound infections. ? Common complaints after lumbar and/or thoracic spine surgery include, but are not limited to: numbness and/or tingling in the legs, pain around the incision and surrounding tissues, muscle spasms, or stiffness of the middle to low back. Contact our office if these symptoms persist or if an acute change occurs. ? No driving for the first 3-5 days, and not while taking narcotics until seen at your follow-up appointment and cleared.There are no restrictions for riding on short trips, however if you take a longer trip, arrangements should be made to make regular stops to get out of the vehicle and stretch . ? Swelling is an unfortunate event that will take place with any surgery and is the primary source of your postoperative discomfort. While walking and regular approved activities helps control inflammation, there are additional steps you can take to minimize swelling. > Place ice over the surgical site and surrounding tissue for twenty minutes, followed by applying a low/medium heat (heating pad) for an additional twenty minutes every 1-2 hours as needed for pain relief. > You may use of over the counter anti-inflammatory medications (Ibuprofen, Motrin, Aleve, Advil, etc) as directed on the package label. These types of medicines will significantly reduce the amount of discomfort you experience after surgery from swelling. It should be noted that if you have an allergy to any of these medications, or a history of ulcers or kidney disease you should consult your primary care provider prior to starting these medications. Discharge Attestations Time Spent in Discharge Care*: less than 30 min Quality Metrics Clinical Quality Measures [ No reported AMI, CVA or VTE this stay] Coding Level of Care Code Acute Code for Chg Fwd Diagnoses Status post lumbar laminectomy Z98.890
== END 2025-03-10 15:15 | disposition home or self-care (01) ==
LOC: ER 08:17 → ER IP 09:56 → MEDSURG 13:35
PROVIDERS: Admitting Provider Orthopaedic Surgery; Emergency Provider Emergency Medicine; PCP Family Medicine; Visit Provider Orthopaedic Surgery
DX: Z98.890 Other specified postprocedural states (principal); Z79.82 Long term (current) use of aspirin; K21.9 Gastro-esophageal reflux disease without esophagitis; Z79.84 Long term (current) use of oral hypoglycemic drugs; E11.9 Type 2 diabetes mellitus without complications; E78.5 Hyperlipidemia, unspecified; I10 Essential (primary) hypertension; G47.30 Sleep apnea, unspecified; Z85.850 Personal history of malignant neoplasm of thyroid
CPT/HCPCS: 96361; 96374; 96375; 96376; 97161; 97530; 99285; G0378; J1171; J1885; J2270; J2360; J2405; J2919; J9999

== ENCOUNTER → 2025-03-12 13:13 | Outpatient (BNVA) | payer MEDICARE, OTHER, SELFPAY | PROVIDERS: PCP Family Medicine; Visit Provider Orthopaedic Surgery | DX: Z98.890 Other specified postprocedural states (principal) | CPT/HCPCS: 99024 ==

== ENCOUNTER → 2025-03-21 13:02 | Outpatient (BNVA) | payer MEDICARE, OTHER, SELFPAY | PROVIDERS: PCP Family Medicine; Visit Provider Orthopaedic Surgery | DX: Z98.890 Other specified postprocedural states (principal) | CPT/HCPCS: 99024 ==

== ENCOUNTER → 2025-03-25 15:08 | Outpatient (BNVA) | payer MEDICARE, OTHER, SELFPAY | PROVIDERS: PCP Family Medicine; Visit Provider Family Medicine | DX: Z51.81 Encounter for therapeutic drug level monitoring (principal); Z13.6 Encounter for screening for cardiovascular disorders; E11.9 Type 2 diabetes mellitus without complications; E83.39 Other disorders of phosphorus metabolism; E53.8 Deficiency of other specified B group vitamins | CPT/HCPCS: 80053; 80061; 82306; 82607; 83036; 83721; 83735; 84100; 85025 ==